=== PATIENT | female | born 1965 | race Two or more races ===

== ENCOUNTER → 2020-12-16 12:51 | Outpatient (BNVA) | payer OTHER, SELFPAY | PROVIDERS: PCP Internal Medicine; Visit Provider Internal Medicine Cardiovascular Disease | DX: I42.9 Cardiomyopathy, unspecified (principal); I12.0 Hypertensive chronic kidney disease with stage 5 chronic kidney disease or end stage renal disease; N18.5 Chronic kidney disease, stage 5; Z79.899 Other long term (current) drug therapy | CPT/HCPCS: 93005; 99212 ==

== ENCOUNTER 2021-11-30 11:26 | Outpatient (REF) | payer OTHER, SELFPAY ==
--- NOTE | ~2021-11-30 | XR_ITS ---
EXAMINATION: XR CHEST CLINICAL INFORMATION: Cough. COMPARISON: 05/01/2016 TECHNIQUE: 2 views of the chest were obtained. FINDINGS: There is scoliosis of the thoracic spine convex right. No acute parenchymal disease, pneumothorax, or pleural effusion identified. Heart upper limits of normal in size. No evidence of pulmonary edema. Prominent left pericardial fat pad. XR/XR chest 2V IMPRESSION: No acute disease.
[2021-11-30 11:55] LABS: Binax Internal Control QC Valid; Binax Now Covid-19 Ag Negative (Negative)
== END 2021-11-30 11:27 | disposition home or self-care (01) ==
LOC: HO.HMGCLDS 11:26
PROVIDERS: PCP Internal Medicine; Visit Provider Physician Assistant
DX: J06.9 Acute upper respiratory infection, unspecified (principal); R05.9 Cough, unspecified; J02.9 Acute pharyngitis, unspecified
CPT/HCPCS: 71046

== ENCOUNTER 2022-03-23 11:33 | Outpatient (REF) | payer MEDICARE, MEDICAID, SELFPAY ==
[2022-03-23 13:46] LABS: MANUAL DIFF FLAG NO
[2022-03-23 13:57] LABS: Basophils Absolute Auto 0.1 X10*3/uL (0.0-0.2); Basophils Percent Auto 0.7 % (0-2); Eosinophils Absolute Auto 0.2 X10*3/uL (0.0-0.4); Eosinophils Percent Auto 2.5 % (0-4); Hematocrit 30.6 % (37.0-47.0); Hemoglobin 9.5 g/dl (12.0-16.0); Imm Gran Abs Auto 0.07 X10*3/uL (0.00-0.03); Lymphocytes Absolute Auto 1.5 X10*3/uL (1.2-4.9); Lymphocytes Percent Auto 19.9 % (20-40); Mean Corpuscular Volume 83.8 fL (80.0-98.0); Mean Platelet Volume 10.9 fL (9.4-12.3); Monocytes Absolute Auto 0.7 X10*3/uL (0.1-1.2); Monocytes Percent Auto 9.4 % (2-11); Neutrophils Absolute Auto 4.9 x10*3/uL (2.0-8.3); Neutrophils Percent Auto 66.5 % (45-73); Platelet Count 205 X10*3/uL (160-400); Red Blood Count 3.65 X10*6/uL (4.20-5.50); Red Cell Distribution Width 15.4 % (11.0-16.0); White Blood Count 7.3 X10*3/uL (4.8-10.8)
[2022-03-23 14:06] LABS: Alanine Aminotransferase 9 U/L (0-31); Albumin Level 4.1 g/dL (3.5-5.0); Alkaline Phosphatase 83 U/L (39-117); Anion Gap 16 (12-20); Aspartate Amino Transferase 9 U/L (5-31); Bilirubin Total 0.3 mg/dL (0.0-1.0); Blood Urea Nitrogen 72 mg/dL (9-16); Calcium 8.6 mg/dL (8.4-10.2); Carbon Dioxide 14 mmol/L (22-29); Chloride 116 mmol/L (96-108); Glucose Random 105 mg/dL (60-115); Potassium 4.2 mmol/L (3.3-5.1); Sodium 142 mmol/L (135-145); Total Protein 7.8 g/dL (6.5-8.0)
[2022-03-23 14:07] LABS: Estimated Glomerular Filt Rate 8
== END 2022-03-23 11:34 | disposition home or self-care (01) ==
LOC: HO.HMGCLDS 11:33
PROVIDERS: Visit Provider Internal Medicine
DX: I12.9 Hypertensive chronic kidney disease with stage 1 through stage 4 chronic kidney disease, or unspecified chronic kidney disease (principal); N18.5 Chronic kidney disease, stage 5; I42.9 Cardiomyopathy, unspecified; R60.9 Edema, unspecified
CPT/HCPCS: 36415; 80053; 85025

== ENCOUNTER → 2022-06-26 13:58 | Outpatient (BNVA) | payer MEDICARE, MEDICAID, SELFPAY | PROVIDERS: PCP Internal Medicine; Visit Provider Surgery | DX: K46.9 Unspecified abdominal hernia without obstruction or gangrene (principal); J45.909 Unspecified asthma, uncomplicated; I42.9 Cardiomyopathy, unspecified; N18.5 Chronic kidney disease, stage 5; E66.9 Obesity, unspecified; I10 Essential (primary) hypertension; Z68.35 Body mass index [BMI] 35.0-35.9, adult | CPT/HCPCS: 99202 ==

== ENCOUNTER 2022-06-27 11:24 | Outpatient (REF) | payer MEDICARE, MEDICAID, SELFPAY ==
--- NOTE | ~2022-06-27 | MM_ITS ---
EXAMINATION: MM SCREENING DIGITAL BREAST TOMOSYNTHESIS, BILATERAL CLINICAL INFORMATION: Screening. Asymptomatic. The lifetime risk of breast cancer based on the Tyrer-Cuzick Model is 6.2%. COMPARISON: Mammography: June 27, 2019 and studies dating back to March 13, 2013 TECHNIQUE: Digital breast tomosynthesis is performed in both the craniocaudal and mediolateral oblique views along with computer-aided detection (CAD). Synthesized 2D images are generated from the tomosynthesis. FINDINGS: The breasts are almost entirely fatty (ACR BI-RADS breast composition Category a). There are no significant masses, abnormal calcifications, or other abnormalities. MM/MM tomosynthesis screening BI IMPRESSION: No significant changes from prior exam. ASSESSMENT: BI-RADS 1: Negative RECOMMENDATION: Routine annual mammography screening. This patient's information was entered into a reminder system with a target due date for their next mammogram.
== END 2022-06-27 11:25 | disposition home or self-care (01) ==
LOC: HO.MAMMO 11:24
PROVIDERS: PCP Internal Medicine; Visit Provider Nurse Practitioner Family
DX: Z12.31 Encounter for screening mammogram for malignant neoplasm of breast (principal)
CPT/HCPCS: 77063; 77067

== ENCOUNTER → 2022-09-06 09:33 | Outpatient (BNVA) | payer OTHER, SELFPAY | PROVIDERS: PCP Nurse Practitioner Family; Referring Provider Nurse Practitioner Family; Visit Provider Internal Medicine Cardiovascular Disease | DX: I12.9 Hypertensive chronic kidney disease with stage 1 through stage 4 chronic kidney disease, or unspecified chronic kidney disease (principal); N18.5 Chronic kidney disease, stage 5; I42.9 Cardiomyopathy, unspecified | CPT/HCPCS: 93005; 99212 ==

== ENCOUNTER → 2022-12-14 12:50 | Outpatient (REF) | payer OTHER, SELFPAY ==
--- NOTE | 2022-12-14 12:53 | CA_ITS ---
Transthoracic Echocardiogram Patient (Last, First, Middle): Anh Kitchen, Gender: Female Date of : 1965 Age: 57 Procedure Date: 12/14/2022 Procedure Type: Transthoracic Echocardiogram Location: OP Height: 165.1 cm Weight: 90.72 kg BSA: 1.98 m2 Heart Rate: 74 bpm BP: 142 / 64 mmHg Jackerman: CRISTINA Referring MD: Nirav Zamudio MD Technical Support Consultant: Miko Quan MD Symptoms: I42.9 - Cardiomyopathy, unspecified Study Quality: Adequate ECG Rhythm: Sinus Conclusions: - 1. [id number] LV systolic dysfunction with LVEF of 40-45% with impaired relaxation filling pattern 2. Normal cardiac valvular Dopplers 3. Normal RV systolic pressure 4. No gross pericardial effusion Findings Left Ventricle Mildly increased left ventricular cavity size. There is normal left ventricular wall thickness. The left ventricular systolic function is mild to moderately decreased. The visually estimated ejection fraction is between 40-45%. Spectral Doppler is indicative of an impaired relaxation filling pattern. Right Ventricle Normal right ventricular cavity size and systolic function. Atria The left atrium is normal in size. Interatrial shunt cannot be excluded. The right atrium is normal in size. Aortic Valve The aortic valve structure and function is likely normal. There is no aortic valve stenosis. There is no aortic valve regurgitation. Mitral Valve Normal mitral valve structure and function. There is trace mitral valve regurgitation. There is no mitral valve stenosis. Pulmonic Valve The pulmonic valve is likely normal. Tricuspid Valve Normal tricuspid valve structure. There is trace tricuspid valve regurgitation. The right ventricular systolic pressure is normal. The right ventricular systolic pressure is 11 mmHg. Normal right atrial pressure. Great Vessels All visible segments of the aorta are normal in size. The pulmonary artery was not well visualized. Venous The inferior vena cava is normal in size and collapses greater than 50% with inspiration. Pericardium/Pleural There is no evidence of pericardial effusion. Prior Study Comparison Changes noted compared to prior study dated: 04/18/2019. LV systolic function has improved marginally Measurements 2D Linear Measurements IVSd: 1.14 0.6-0.9/0.6-1.0 cm LVIDd: 6.17 3.9-5.3/4.2-5.9 cm LVIDd Index: 3.12 2.4-3.2/2.2-3.1 cm/m2 LVIDs: 4.10 2.0-3.6 cm LVPWd: 0.91 0.7-1.1 cm LA Diam: 3.90 2.7-3.8/3.0-4.0 cm LAIDs Index: 1.97 1.5-2.3 cm/m2 LV Mass: 332.51 67-162/88-224 g LV Mass Index: 167.93 43-95/49-115 g/m2 LVOT Diam: 2.40 3.0+(-)1.3 cm 2D Systolic Function EF 4C: 38.80 >55% EF 2C: 41.60 >55% EF BiP: 40.10 >55% Mitral Valve MV Pk E: 0.66 MV PK A: 0.78 MV Decel Time: 190.00 E/A: 0.80 E'Lateral: 5.68 E'Medial: 4.70 E/E' Med: 14.10 E/E' Lat: 11.70 PHT: 56.00 MVA PHT: 3.93 Decel Franklin: 3.49 Aortic Valve AoV Pk Bang: 1.37 AoV Pk Grad: 8.00 OMAR: 3.17 LVOT LVOT Pk Bang: 0.96 LVOT Mn Bang: 0.61 LVOT VTI: 0.18 LVOT Pk Grad: 4.00 LVOT Mn Grad: 2.00 LVOT Diam: 2.40 LVOT Area: 4.52 Diastolic Function MV Pk E: 0.66 MV Pk A: 0.78 E/A: 0.80 E'Medial: 4.70 E/E' Med: 14.10 E' Laterial: 5.68 E/E' Lat: 11.70 Right Ventricle TAPSE (mm): 19.10 TVS' Bang: 9.80 Tricuspid Valve TR Pk Bang: 1.40 TR Pk Grad: 8.00 RVSP: 11.00 Great Vessels Aorta Sinus of Valsalva: 3.20 2.0-3.5 cm Ao Asc: 3.50 2.1-3.4 cm Pulmonary Valve PV Pk Bang: 1.00 Peak PV Grad: 4.00 Updated in Other Vendor System with Status of Final Miko Quan MD electronically signed on 12/15/2022 11:29:23 AM with status of Final
== END ==
LOC: HO.CARD 12:50
PROVIDERS: PCP Nurse Practitioner Family; Visit Provider Internal Medicine Cardiovascular Disease
DX: I42.9 Cardiomyopathy, unspecified (principal)
CPT/HCPCS: 93306

== ENCOUNTER 2023-01-18 17:48 | Outpatient (REF) | payer OTHER, SELFPAY ==
[2023-01-18 18:36] LABS: Influenza A PCR NEGATIVE (Negative); Influenza B PCR NEGATIVE (Negative); Resp Syncy Virus RNA Qual PCR NEGATIVE (Negative); SARS COV2 PCR INHOUSE NEGATIVE (Negative)
== END 2023-01-18 17:49 | disposition home or self-care (01) ==
LOC: HO.LNP 17:48
PROVIDERS: Visit Provider Physician Assistant Medical
DX: Z20.822 Contact with and (suspected) exposure to COVID-19 (principal); R05.9 Cough, unspecified
CPT/HCPCS: 0241U

== ENCOUNTER 2023-01-21 11:51 | Emergency (ER) | payer OTHER, SELFPAY ==
--- NOTE | ~2023-01-21 | XR_ITS ---
EXAMINATION: XR CHEST CLINICAL INFORMATION: Cough. COMPARISON: None available. TECHNIQUE: 2 views of the chest were obtained. FINDINGS: No significant abnormality is noted involving the heart, lungs, mediastinum, bony thorax or soft tissues. XR/XR chest 2V IMPRESSION: No acute cardiopulmonary process.
[2023-01-21 11:59] VITALS: BP 130/58; PULSE 101; RESP 18; TEMP 36.8; O2SAT 100; BMI 30.2
--- NOTE | 2023-01-21 12:04 | ED_ITS ---
HPI - General Adult General Chief complaint: Upper Respiratory Symptoms Stated complaint: Sore throat/dizziness Time Seen by Provider: 01/21/23 12:13 Source: patient Limitations: no limitations History of Present Illness HPI narrative: 57-year-old female presents to the ER complaining of sore throat cough and intermittent dizziness since mother's Day. No known sick contacts. Cough is mostly nonproductive. Patient does have a history of asthma. Also history of hypertension. Patient denies chest pain or shortness of breath at this time symptoms are [id number]. Patient denies fever at this time. No other complaints at this time Related Data Previous Rx's Medication Instructions Recorded carvedilol 3.125 mg tablet 3.125 mg PO BID #60 tabs 09/06/22 amlodipine 10 mg tablet 10 mg PO DAILY #90 tabs 10/13/22 benzonatate 100 mg capsule 100 mg PO BID PRN cough #14 caps 01/21/23 Allergies Allergy/AdvReac Type Severity Reaction Status Date / Time Penicillins Allergy Intermediate RASH Verified 01/21/23 11:59 Review of Systems Review of Systems: General: No fever, no chills Ophthalmology: No vision changes, no discharge ENT: Positive sore throat positive congestion Cardiovascular: No chest pain, no peripheral edema, no shortness of breath Respiratory: Positive cough nonproductive Muscle skeletal: No malaise, no back pain, no neck pain, no extremity pain GI: no nausea vomiting, no diarrhea Skin: No rash Hematology: No bleeding, no bruising PMFSH Past Medical History Attestation statement: The following information was validated with the patient. Medical History CKD (chronic kidney disease) stage 5, GFR less than 15 ml/min Essential hypertension Normocytic anemia Surgical History History of abdominal surgery History of extraction of renal calculus History of surgery History of tubal ligation Status post dilation and curettage Family History Family History Father Throat cancer Mother Hypertension Daughter In good health Daughter In good health Sister In good health Family/Other Breast cancer Social History Social History Housing: Apartment Alcohol intake: never Patient Tobacco Use Status: Former Tobacco user Quit Date: 2011 Tobacco use type: Cigarette Years Smoked: 30 +/- e-Cigarette/Vaping Use: Never Used Second Hand Smoke Exposure: No Advance Directives: No Advance Directives Information Provided: Yes service: No Current occupational status: unemployed Cognitive needs: No Hearing needs: No Vision needs: No Physical Exam ED Vital Signs: Vital Signs - 24 hr 01/21/23 11:59 Temperature 98.2 F Pulse Rate 101 H Respiratory Rate 18 Blood Pressure 130/58 L Pulse Oximetry 100 Oxygen Delivery Method Room Air BMI result Body Mass Index 30.2 General appearance: Awake, alert, cooperative, in no acute distress Skin: Warm, dry, no rash Eyes: PERRL, EOMI, no icterus ENT: Throat slightly erythematous no exudate no evidence of peritonsillar abscess uvula is midline. Neck: Soft supple full range of motion Pulmonary: Breath sounds are slightly coarse good aeration no accessory muscle use Cardiovascular: Regular rate and rhythm, no murmurs and rubs Extremities: No deformity, nontender, no peripheral edema noted Neuro: Alert oriented x3, no focal deficit, screen cutter and trimmer is equal bilaterally Psych: Normal affect Course Course Course Narrative: RME: 57 yold female presents to the ED for cough, sore throat, and known fluid in left ear. patient had negative covid and RSV and strep at urgent care. Viltal signs stable. Chest Xray strep swab ordered Medical Decision Making Medical Decision Making MDM Narrative: Acute pharyngitis Viral URI Sinusitis Otitis media Viral syndrome Pneumonia Seasonal allergies 57-year-old female with longstanding history of asthma and hypertension presents with sore throat congestion and at times cough since mother's Day. No known sick contacts O2 sat is 100% on room air other vital signs are otherwise stable. Chest x-ray pending throat swab pending respiratory swab pending Patient tested positive for influenza B will treat symptomatically at this time. This patient has had symptoms almost since mother's Day I do not believe Tamiflu would be effective at this time will place patient on Tessalon Perles for cough. Lab Data Labs: Lab Results 01/21/23 01/21/23 01/21/23 Range/Units 12:21 12:21 13:00 Influenza Type A (AL) Negative (Negative) Influenza Type A (PCR) Cancelled Influenza Type B (AL) Positive A (Negative) Influenza Type B (PCR) Cancelled Influenza A & B Note See Note RSV RNA Qual (PCR) Cancelled SARS-CoV-2 RNA (RT-PCR) Cancelled S. pyogenes GrpA AL Negative (Negative) 01/21/23 Range/Units 13:17 Influenza Type A (AL) (Negative) Influenza Type A (PCR) Cancelled Influenza Type B (AL) (Negative) Influenza Type B (PCR) Cancelled Influenza A & B Note RSV RNA Qual (PCR) Cancelled SARS-CoV-2 RNA (RT-PCR) Cancelled S. pyogenes GrpA AL (Negative) Radiology Impression Discussion of test interpretation with radiology: I have reviewed the radiologist's reading. Radiologist Impression: [id number] [place], [place] [id number] ReportSigned Patient: Anh KitchenMR#: [id number]: 1965Acct:[id number]/Sex: 57 / FADM Date: 01/21/23Loc: EDAttending Dr: Ordering Physician: Andrea Carranza Date of Service: 01/21/23 Procedure(s): XR chest 2V Accession Number(s): [id number] cc: Andrea Carranza ~ EXAMINATION: XR CHEST CLINICAL INFORMATION: Cough. COMPARISON: None available. TECHNIQUE: 2 views of the chest were obtained. FINDINGS: No significant abnormality is noted involving the heart, lungs, mediastinum, bony thorax or soft tissues. XR/XR chest 2V IMPRESSION: No acute cardiopulmonary process. Dictated By:Gautam Chua MDSigned By:<Electronically signed by Gautam Chua MD in OV>01/21/23 1233 DD/ 1230TD/TT: Rat Culturist: OHWIE Discharge Plan Discharge Clinical Impression: Influenza B Patient Disposition: Home, Self-Care Instructions: Influenza (ED) Additional Instructions: You have tested positive for the flu Increase fluids rest Medications as directed The flu is a virus so no antibiotics needed at this time medications have been given for symptomatic relief Prescriptions: New benzonatate 100 mg capsule 100 mg PO BID PRN (Reason: cough) Qty: 14 0RF No Action amlodipine 10 mg tablet 10 mg PO DAILY Qty: 90 0RF carvedilol 3.125 mg tablet 3.125 mg PO BID Qty: 60 3RF Rx Instructions: must administer with a meal/food Interventions: ED Discharge Assessment Last Done: 01/21/23 13:41 Discharge Date/Time: 01/21/23 13:42
[2023-01-21 12:43] LABS: Strep A Nucleic Acid Negative (Negative)
[2023-01-21 13:21] LABS: IDNOW Serial# 16C4AD1C; Influenza A Negative (Negative); Influenza B2 Positive (Negative)
== END 2023-01-21 13:42 | disposition home or self-care (01) ==
PROVIDERS: Physician Assistant; Emergency Provider Emergency Medicine Emergency Medical Services; PCP Nurse Practitioner Family
DX: J10.1 Influenza due to other identified influenza virus with other respiratory manifestations (principal); J02.8 Acute pharyngitis due to other specified organisms; R42 Dizziness and giddiness; R05.9 Cough, unspecified; Z79.899 Other long term (current) drug therapy
CPT/HCPCS: 0241U; 71046; 87502; 87651; 99282; 99283

== ENCOUNTER 2023-03-26 15:34 | Emergency (ER) | payer OTHER, SELFPAY ==
[2023-03-26 15:39] VITALS: BP 157/75; PULSE 92; RESP 18; TEMP 36.1; O2SAT 100; BMI 31.1
--- NOTE | 2023-03-26 15:41 | ED.GENADULT ---
HPI - General Adult General Chief complaint: General Medical Stated complaint: throat pain/trouble swallowing Time Seen by Provider: 03/26/23 15:41 Source: patient, RN notes reviewed and old records reviewed Mode of arrival: ambulatory Limitations: no limitations History of Present Illness HPI narrative: 57-year-old female presents for evaluation of a sore throat. Patient reports that her symptoms started 8 days ago Denies any sick contacts or associated symptoms. No fevers or chills Related Data Previous Rx's Medication Instructions Recorded carvedilol 3.125 mg tablet 3.125 mg PO BID #60 tabs 09/06/22 benzonatate 100 mg capsule 100 mg PO BID PRN cough #14 caps 01/21/23 amlodipine 10 mg tablet 10 mg PO DAILY #90 tabs 03/23/23 clindamycin HCl 300 mg capsule 300 mg PO TID #21 caps 03/26/23 Allergies Allergy/AdvReac Type Severity Reaction Status Date / Time Penicillins Allergy Intermediate RASH Verified 03/26/23 15:39 Review of Systems Constitutional: Constitutional: Denies chills and Denies fever(s) ENT: Reports sore throat, Denies throat swelling and Denies tongue swelling Allergic/Immunologic: Allergic/Immunologic: Denies throat swelling and Denies tongue swelling PMFSH Past Medical History Medical History CKD (chronic kidney disease) stage 5, GFR less than 15 ml/min Essential hypertension Normocytic anemia Surgical History History of abdominal surgery History of extraction of renal calculus History of surgery History of tubal ligation Status post dilation and curettage Family History Family History Father Throat cancer Mother Hypertension Daughter In good health Daughter In good health Sister In good health Family/Other Breast cancer Social History Social History Housing: Apartment Alcohol intake: never Patient Tobacco Use Status: Former Tobacco user Quit Date: 2011 Tobacco use type: Cigarette Years Smoked: 30 +/- e-Cigarette/Vaping Use: Never Used Second Hand Smoke Exposure: No service: No Current occupational status: unemployed Cognitive needs: No Hearing needs: No Vision needs: No Physical Exam ED Const General: healthy appearing, comfortable, no acute distress, alert and awake Nutritional Appearance: well nourished Orientation/consciousness: patient oriented x3 HENMT Other: Mildly erythematous retropharynx, no significant tonsillar hypertrophy, no evidence of peritonsillar abscess, no exudates Head: Yes normocephalic and Yes atraumatic Eyes Eyelids: Yes eyelids normal Conjunctivae: conjunctivae normal Sclerae: sclerae normal Corneas: corneas normal Pupils: Equal, round and reactive pupils present EOM: EOMs intact bilaterally Neck Neck: Yes full ROM and No anterior neck swelling Resp Effort & Inspection: normal respiratory effort, able to speak in complete sentences and not labored Skin General skin exam: no rashes or lesions noted and elasticity normal Neuro General: patient oriented x3 Cranial nerves: Yes Equal, round and reactive pupils present and Yes Bilaterally intact EOM present Cognition (Neuro): normal cognition Extrem Other: Moving all extremities well without any obvious deformities Medical Decision Making Medical Decision Making MDM Narrative: Patient appears to be mild pharyngitis. Given the amount of positive strep test we have been seeing as well as multiple peritonsillar abscesses, will treat for presumed strep pharyngitis.. Patient encouraged to follow-up with PCP Differential Diagnosis Pharyngitis Viral syndrome Strep throat Peritonsillar abscess less likely Discharge Plan Discharge Clinical Impression: Pharyngitis Patient Disposition: Home, Self-Care Instructions: Pharyngitis (ED) Additional Instructions: Use Tylenol as needed for pain. You may also use salt water gargles Take the antibiotic three times daily for the next 7 days Return for new or worsening symptoms Follow-up with your primary doctor Prescriptions: New clindamycin HCl 300 mg capsule 300 mg PO TID Qty: 21 0RF No Action amlodipine 10 mg tablet 10 mg PO DAILY Qty: 90 0RF benzonatate 100 mg capsule 100 mg PO BID PRN (Reason: cough) Qty: 14 0RF carvedilol 3.125 mg tablet 3.125 mg PO BID Qty: 60 3RF Rx Instructions: must administer with a meal/food
== END 2023-03-26 15:54 | disposition home or self-care (01) ==
PROVIDERS: Emergency Provider Emergency Medicine Emergency Medical Services; PCP Internal Medicine
DX: J02.9 Acute pharyngitis, unspecified (principal); I12.0 Hypertensive chronic kidney disease with stage 5 chronic kidney disease or end stage renal disease; Z87.891 Personal history of nicotine dependence
CPT/HCPCS: 99282; 99283

== ENCOUNTER 2023-04-02 14:45 | Outpatient (AMB) | payer OTHER, SELFPAY ==
[2023-04-02 14:49] VITALS: BP 150/80; PULSE 84; BMI 30.2
--- NOTE | 2023-04-02 14:49 | MHC.OFFVIS ---
Intake Vital Signs 04/02/23 14:49 Height 5 ft 6 in Weight 187 lb 6.287 oz BMI 30.2 BP 150/80 H Blood Pressure Location Lt brachial Position Sitting Pulse 84 Pulse Source Pulse Oximeter Intake Visit Reasons: FUP REQUESTED BY CINDY/CARDIOMYOPATHY Intake Note: FUP requested DR Bolanos /Cardiomyopathy patient has been having stomach problems cant take meds and gets tired when walking Loop Drier Operator Required: Yes Loop Drier Operator Name: stephane said [id number] Allergies Penicillins Allergy (Intermediate, Verified 04/02/23 14:55) RASH Medication List - Last Reconciled 04/02/23 by Georgina Reina, MARIELLE-C amlodipine 10 mg PO DAILY carvedilol 3.125 mg PO BID HPI FUP REQUESTED BY CINDY/CARDIOMYOPATHY HPI Details Anh is a 57-year-old female with past medical history of hypertension, chronic kidney disease, cardiomyopathy who presents for follow-up after recent echocardiogram. Today she reports that she has not been doing well since her visit in September. She said she had a bacterium in her stomach and then took an antibiotic. Now for the last few months she has not been able to swallow things normally. She has lost around 28 lb in the last 2-3 months. Most things get stuck including her pills. She is living on water and small pieces of fruit. She is not able to swallow bread or meats. She has not been having any chest discomfort at rest or with activity. She denies any shortness of breath, dizziness, presyncope, syncope, falls. No PND, orthopnea or edema. She says she tries to take her meds daily but unsure they are getting down. [facility] Medical History CKD (chronic kidney disease) stage 5, GFR less than 15 ml/min Essential hypertension Normocytic anemia Surgical History History of abdominal surgery History of extraction of renal calculus History of surgery History of tubal ligation Status post dilation and curettage Family History Father Throat cancer Mother Hypertension Daughter In good health Daughter In good health Sister In good health Family/Other Breast cancer Social History Housing: Apartment Alcohol intake: never Patient Tobacco Use Status: Former Tobacco user Quit Date: 2011 Tobacco use type: Cigarette Years Smoked: 30 +/- e-Cigarette/Vaping Use: Never Used Second Hand Smoke Exposure: No service: No Current occupational status: unemployed Cognitive needs: No Hearing needs: No Vision needs: No Review of Systems Const Details: Difficulty swallowing, weight loss All systems reviewed & are unremarkable except as noted in HPI and below ENT Reports dizziness Card Denies chest pain, Denies chest pain at rest, Denies chest pain with activity, Denies rapid heart rate, Denies pedal edema, Denies edema, Denies leg edema, Denies lightheadedness, Denies palpitations, Denies dyspnea, Denies dyspnea on exertion and Denies orthopnea Resp Denies cough, Denies dyspnea and Denies dyspnea on exertion GI Denies hematochezia and Denies change in stool character Musc Denies abnormal gait, Reports limited range of motion, Reports muscle cramps, Denies muscle weakness, Denies numbness, Denies radiating pain into limb, Denies stiffness and Denies tingling Neuro Denies abnormal gait, Reports dizziness, Denies numbness and Denies tingling Endo Denies palpitations Physical Exam Vital Signs: Last Vital Signs Pulse 84 04/02/23 14:49 BP 150/80 H 04/02/23 14:49 BMI result Body Mass Index 30.2 Const General: cooperative, healthy appearing, comfortable and no acute distress Orientation/consciousness: patient oriented x3 Neck Neck: Yes normal visual inspection Resp Effort & Inspection: normal respiratory effort Auscultation: clear to auscultation bilaterally, no crackles, no rales, no rhonchi and no wheezes Cardio Jugular venous distension: no JVD Rate: regular rate Rhythm: regular rhythm Heart sounds: S1 normal heart sound present, S2 normal heart sound present, no murmurs and no rubs Neuro General: patient oriented x3 Extrem General: Yes normal to inspection Psych Appearance: grossly normal Mental Status: mental status grossly normal Speech and movement: Normal speech and movement present Assessment & Plan Assessment & Plan (1) Cardiomyopathy: Code(s): I42.9 - Cardiomyopathy, unspecified Plan: Known history of cardiomyopathy with prior echos showing EF as low as 30-35%, 04/2019. She has stage 5 chronic kidney disease and cardiac catheterization has not been performed on her. She has no known history of coronary artery disease and has no anginal sounding symptoms. Echocardiogram done 12/14/2022 shows EF 40-45%, normal RV, normal valves. She has been on carvedilol for neurohormonal modulation. Blood pressure is mildly elevated today however patient is describing issues with swallowing and not sure if she is getting her meds as she should. No clinical signs of heart failure on examination. Signs and symptoms of heart failure reviewed with her. Continue current meds without change. Plan to further titrate neurohormonal modulation once her swallowing issues have improved. (2) Essential hypertension: Code(s): I10 - Essential (primary) hypertension Plan: As above (3) CKD (chronic kidney disease) stage 5, GFR less than 15 ml/min: Code(s): N18.5 - Chronic kidney disease, stage 5 Plan: Follows with Nephrology (4) Dysphagia: Code(s): R13.10 - Dysphagia, unspecified Plan: Patient reports difficulty swallowing in recent months. She feels this symptom has gotten worse and she is now only able to swallow liquids and small pieces of fruit. She is not able to swallow bread or meats. Everything gets stuck including her pills. She was seen in the emergency room on 03/26/2023 for reported symptoms of sore throat. She was treated for mild pharyngitis and possible strep. However she tells me that she has had the difficulty swallowing issues over the last few months and has recently lost approximately 28 lb. I do not see that she has seen GI in the recent past. Will refer to GI for evaluation and treatment (5) Weight loss: Code(s): R63.4 - Abnormal weight loss Orders: Referrals Gastroenterology Referral R13.10 - Dysphagia, unspecified, R63.4 - Abnormal weight loss Coding Level of Care Code Est Pt Level 4 (87585) Diagnoses Cardiomyopathy I42.9 Essential hypertension I10 CKD (chronic kidney disease) stage 5, GFR less than 15 ml/min N18.5 Dysphagia R13.10 Weight loss R63.4 Time Spent (min) 30 Comment Chart review, documentation, interview, assessment
== END 2023-04-02 15:23 | disposition home or self-care (01) ==
PROVIDERS: PCP Internal Medicine; Visit Provider Nurse Practitioner Family
DX: I42.9 Cardiomyopathy, unspecified (principal); I12.0 Hypertensive chronic kidney disease with stage 5 chronic kidney disease or end stage renal disease; N18.5 Chronic kidney disease, stage 5; R13.10 Dysphagia, unspecified; R63.4 Abnormal weight loss
CPT/HCPCS: 99214

== ENCOUNTER → 2023-04-02 14:45 | Outpatient (BNVA) | payer OTHER, SELFPAY | PROVIDERS: PCP Internal Medicine; Visit Provider Nurse Practitioner Family | DX: I42.9 Cardiomyopathy, unspecified (principal); I13.11 Hypertensive heart and chronic kidney disease without heart failure, with stage 5 chronic kidney disease, or end stage renal disease; N18.5 Chronic kidney disease, stage 5; R13.10 Dysphagia, unspecified; R63.4 Abnormal weight loss; Z87.891 Personal history of nicotine dependence | CPT/HCPCS: 99212 ==

== ENCOUNTER 2023-06-19 09:46 | Outpatient (AMB) | payer OTHER, SELFPAY ==
[2023-06-19 09:59] VITALS: BP 156/80; PULSE 90; O2SAT 100; BMI 30.8
--- NOTE | 2023-06-19 09:59 | A.OFFPC_ITS ---
Vital Signs 06/19/23 09:59 Height 5 ft 6 in Weight 191 lb BMI 30.8 BP 156/80 H Blood Pressure Location Lt brachial Position Sitting Pulse 90 Pulse Source Pulse Oximeter Pulse Oximetry (%) 100 Oxygen Delivery Method Room Air Intake Visit Reasons: Annual Exam Intake Note: Patient here for a physical exam Retirement Plan Specialist Required: No Accompanied by: Self / Same As Patient Allergies Penicillins Allergy (Intermediate, Verified 06/19/23 10:15) RASH Medication List - Last Reconciled 06/19/23 by Britt De MD amlodipine 10 mg PO DAILY carvedilol 3.125 mg PO BID Tobacco use date assessed: 09/20/22 Dental Screening Dental Screen Date: 06/19/23 Did you have a dental visit in the last 12 months?: Yes Did you have a dental problem in the last 6 months where you did not have access to dental care?: No Was dental information given to patient?: Patient has dentist HPI HPI Comments History of Present Illness Details This is a 58-year-old female with chronic kidney disease stage 5 not on hemodialysis and chronic systolic congestive heart failure that comes for her physical exam. She is a very noncompliant patient. She does not follow with Nephrology and will be refer again. Follows with Cardiology and last echocardiogram was December 2022 showing ejection fraction 40-45%. She is also not compliant with medications and blood pressure is elevated today because she does not take her medications. Blood pressure will be recheck in 3 weeks by nurse navigator. Last Pap smear was 2018 and will be referred to OBGYN for that matter. Last mammogram was June 2022 and I will order another mammogram. Refuse colonoscopy and I will order Cologuard which she does not seen completely convinced of doing it. [facility] Medical History CKD (chronic kidney disease) stage 5, GFR less than 15 ml/min Essential hypertension Normocytic anemia Surgical History History of surgery Status post dilation and curettage History of abdominal surgery History of extraction of renal calculus History of tubal ligation Family History Father Throat cancer Mother Hypertension Daughter In good health Daughter In good health Sister In good health Family/Other Breast cancer Social History Housing: Apartment Alcohol intake: never Patient Tobacco Use Status: Former Tobacco user Quit Date: 2011 Tobacco use type: Cigarette Years Smoked: 30 +/- e-Cigarette/Vaping Use: Never Used Second Hand Smoke Exposure: No service: No Current occupational status: unemployed Cognitive needs: No Hearing needs: No Vision needs: No Questionnaire Thrive Questionnaire Date Thrive assessed: 09/20/22 PAUL-7 AMB Questionnaire PAUL-7 Date PAUL - 7 assessed: 09/20/22 Source: Developed by Drs. Tarun Fernandez, Ciarra Alfred, Mik Sands and colleagues, with an educational kevan from [employer]. Review of Systems Const All systems reviewed & are unremarkable except as noted in HPI and below Eyes Reports no additional complaints, Denies change in vision and Denies other visual disturbances Card Denies chest pain at rest, Denies chest pain with activity, Denies edema, Denies irregular heart rhythm, Denies claudication, Denies dyspnea, Denies dyspnea on exertion, Denies orthopnea, Denies paroxysmal nocturnal dyspnea and Denies slow heart rate Resp Denies cough, Denies dyspnea and Denies dyspnea on exertion GI Denies abdominal pain, Denies change in bowel habits, Denies excessive flatus, Denies nausea and Denies vomiting Denies urinary incontinence, Denies urinary hesitancy and Denies urinary urgency Musc Denies abnormal gait, Denies atrophy, Denies deformity and Denies limited range of motion Skin/Breast Denies bleeding lesions, Denies changing lesions and Denies rash Neuro Denies abnormal gait and Denies lack of coordination Physical exam (Primary Care) Vital Signs: Last Vital Signs Pulse 90 06/19/23 09:59 BP 156/80 H 06/19/23 09:59 Pulse Ox 100 06/19/23 09:59 Oxygen Delivery Method Room Air 06/19/23 09:59 BMI result Body Mass Index 30.8 Tobacco/Smoking Status: Tobacco use Status Tobacco use date assessed 09/20/22 06/19/23 10:02 Patient Tobacco Use Status Former Tobacco user 06/19/23 10:02 Tobacco use type Cigarette 06/19/23 10:02 e-Cigarette/Vaping Use Never Used 06/19/23 10:02 Thrive Assessment: Date of Thrive Assessment Date Thrive assessed 09/20/22 06/19/23 10:02 Const Other: Looks pale General: ill appearing chronically Orientation/consciousness: patient oriented x3 HENMT Head: Yes normal to inspection, Yes normocephalic and Yes atraumatic Ears: external ears normal Eyes General: appearance normal, both eyes and all related structures Eyelids: Yes eyelids normal Conjunctivae: conjunctivae normal Neck Neck: Yes normal visual inspection and Yes supple Resp Effort & Inspection: normal respiratory effort Auscultation: clear to auscultation bilaterally Cardio Jugular venous distension: no JVD Rate: regular rate Rhythm: regular rhythm Heart sounds: S1 normal heart sound present and S2 normal heart sound present GI Inspection: Yes normal to inspection Palpation (GI): Soft to palpation and nontender Auscultation: normal bowel sounds Skin General skin exam: no rashes or lesions noted Neuro General: patient oriented x3 and no focal motor deficits Extrem General: Yes full ROM Psych Appearance: grossly normal Office Procedures Flu Questionnaire Does the patient have a severe egg allergy?: No Does the patient have severe life threatening allergies?: No Does the patient have a fever or illness today?: No Has the patient ever had Guillain-Brooten Syndrome?: No Has the patient ever had any past reaction to a flu shot?: No Immunizations flu vacc [id number] 6mos up(PF) 60 mcg(15 mcgx4)/0.5 mL IM syringe Performing Provider: Britt De MD Performing Location: [facility] Administered by: BALDO Ahn on 06/19/23 10:31 Dose Route Admin Location Dispensed Lot Number Expiration Date NDC Validation Manager 0.5 mL IM Left Deltoid 0.5 mL [id number] 03/02/24 [id number] [employer] Smartphone Physical VIS Given Date VIS Provided VIS Publication Date 06/19/23 Single Vaccine 21 Eligibility Eligibility Date Funding Source Not [facility] Eligible 06/19/23 Private Assessment and Plan Assessment & Plan (1) Physical exam: Code(s): Z00.00 - Encounter for general adult medical examination without abnormal findings Plan: Repeat in a year (2) Chronic systolic (congestive) heart failure: Code(s): I50.22 - Chronic systolic (congestive) heart failure Plan: Be compliant with carvedilol. Follow-up with Cardiology. The goal is to not gain 5 lb in a week. (3) CKD (chronic kidney disease) stage 5, GFR less than 15 ml/min: Code(s): N18.5 - Chronic kidney disease, stage 5 Plan: Urgent referral to Nephrology. Be compliant with amlodipine. Blood pressure goal is equal or less than 130/80. Recheck blood pressure with nurse navigator in 3 weeks. Orders: Orders Influenza [id number] Immunization Today Z23 - Encounter for immunization Vitamin D 25-OH Total Today E55.9 - Vitamin D deficiency, unspecified Lipid Panel Today E78.5 - Hyperlipidemia, unspecified Comprehensive [place]. Panel Fast Today Z00.00 - Encounter for general adult medical examination without abnormal findings XR DEXA axial skeleton Today N95.9 - Unspecified menopausal and perimenopausal disorder NT-proBNP Today I50.22 - Chronic systolic (congestive) heart failure Complete Blood Count Auto Diff Today D64.9 - Anemia, unspecified IRON PROFILE Today D64.9 - Anemia, unspecified Vitamin B12 and Folate Today E53.8 - Deficiency of other specified B group vitamins MM screening mammo BI Today Z12.31 - Encounter for screening mammogram for malignant neoplasm of breast Referrals Cologuard Test Z12.11 - Encounter for screening for malignant neoplasm of colon, Z12.12 - Encounter for screening for malignant neoplasm of rectum FITNESS DIRECTOR Referral Z12.4 - Encounter for screening for malignant neoplasm of cervix Nephrology Referral N18.5 - Chronic kidney disease, stage 5 Medications: New flu vacc [id number] 6mos up(PF) 0.5 mL IM ONCE 0.5 mL 0RF Z23 - Encounter for immunization Coding Level of Care Code Est Pt Prev Care 40-64y(46986) Diagnoses Physical exam Z00.00 Chronic systolic (congestive) heart failure I50.22 CKD (chronic kidney disease) stage 5, GFR less than 15 ml/min N18.5 Time Spent (min) 33
== END 2023-06-19 10:30 | disposition home or self-care (01) ==
PROVIDERS: Visit Provider Internal Medicine
DX: Z00.00 Encounter for general adult medical examination without abnormal findings (principal); I50.22 Chronic systolic (congestive) heart failure; N18.5 Chronic kidney disease, stage 5; Z23 Encounter for immunization
CPT/HCPCS: 90471; 90686; 99396

== ENCOUNTER 2023-07-05 13:57 | Outpatient (AMB) | payer OTHER, SELFPAY ==
[2023-07-05 14:03] VITALS: BP 100/72; PULSE 83; BMI 31.2
--- NOTE | 2023-07-05 14:03 | A.OFFVIS_ITS ---
Intake Vital Signs 07/05/23 14:03 Height 5 ft 6 in Weight 193 lb 1.999 oz BMI 31.2 BP 100/72 Blood Pressure Location Lt brachial Position Sitting Pulse 83 Intake Visit Reasons: 3 MON FUP PER DC Supervisor [employer] Required: Yes Supervisor [employer] Language: Property Man Name: stephane antonio [phone] Allergies Penicillins Allergy (Intermediate, Verified 07/05/23 14:05) RASH Medication List - Last Reconciled 07/05/23 by Georgina Reina NP-C amlodipine 10 mg PO DAILY carvedilol 3.125 mg PO BID HPI 3 MON FUP PER DC HPI Details Anh is a 58-year-old female past medical history of hypertension, chronic kidney disease, mild obesity, cardiomyopathy, who was reporting issues with dysphagia last visit and now presents for follow-up. Today she reports that her swallowing difficulties have since resolved. She says she had gone to the emergency room and they gave her a medication which took care of it. She has been taking her medications as directed and is now able to swallow them. She denies any chest discomfort at rest or with activity. She has no shortness of breath, palpitations, presyncope, syncope, PND, orthopnea or edema. She is able to climb stairs in her home with use of a cane. [facility] Medical History CKD (chronic kidney disease) stage 5, GFR less than 15 ml/min Essential hypertension Normocytic anemia Surgical History History of surgery Status post dilation and curettage History of abdominal surgery History of extraction of renal calculus History of tubal ligation Family History Father Throat cancer Mother Hypertension Daughter In good health Daughter In good health Sister In good health Family/Other Breast cancer Social History Housing: Apartment Alcohol intake: never Patient Tobacco Use Status: Former Tobacco user Quit Date: 2011 Tobacco use type: Cigarette Years Smoked: 30 +/- e-Cigarette/Vaping Use: Never Used Second Hand Smoke Exposure: No service: No Current occupational status: unemployed Cognitive needs: No Hearing needs: No Vision needs: No Review of Systems Const All systems reviewed & are unremarkable except as noted in HPI and below ENT Denies dizziness Card Denies chest pain, Denies chest pain at rest, Denies chest pain with activity, Denies rapid heart rate, Denies pedal edema, Denies edema, Denies leg edema, Denies lightheadedness, Denies palpitations, Denies dyspnea, Denies dyspnea on exertion and Denies orthopnea Resp Denies cough, Denies dyspnea and Denies dyspnea on exertion GI Denies hematochezia and Denies change in stool character Musc Denies abnormal gait, Denies limited range of motion, Denies muscle cramps, Denies muscle weakness, Denies numbness, Denies radiating pain into limb, Denies stiffness and Denies tingling Neuro Denies abnormal gait, Denies dizziness, Denies numbness and Denies tingling Endo Denies palpitations Physical Exam Vital Signs: Last Vital Signs Pulse 83 07/05/23 14:03 BP 100/72 07/05/23 14:03 BMI result Body Mass Index 31.2 Const General: cooperative, healthy appearing, comfortable and no acute distress Orientation/consciousness: patient oriented x3 Neck Neck: Yes normal visual inspection Resp Effort & Inspection: normal respiratory effort Auscultation: clear to auscultation bilaterally, no crackles, no rales, no rhonchi and no wheezes Cardio Jugular venous distension: no JVD Rate: regular rate Rhythm: regular rhythm Heart sounds: S1 normal heart sound present, S2 normal heart sound present, no murmurs and no rubs Neuro General: patient oriented x3 Extrem General: Yes normal to inspection, No no pedal edema and No calf tenderness Psych Appearance: grossly normal Mental Status: mental status grossly normal Speech and movement: Normal speech and movement present Office Procedures EKG Details: Today, read by me, normal sinus rhythm, no acute ST or T-wave abnormalities, rate 83 [id number], Complete Assessment & Plan Assessment & Plan (1) Cardiomyopathy: Code(s): I42.9 - Cardiomyopathy, unspecified Plan: Known history of cardiomyopathy with prior echos showing EF as low as 30-35%, 04/2019. She has stage 5 chronic kidney disease and cardiac catheterization has not been performed on her. She has no known history of coronary artery disease and has no anginal sounding symptoms. Echocardiogram done 12/14/2022 shows EF 40-45%, normal RV, normal valves. She has been on carvedilol for neurohormonal modulation. Not on Corbin or Arb due to chronic kidney disease. No clinical signs of heart failure on examination. Signs and symptoms of heart failure reviewed with her. Will order a pharmacological nuclear stress test to evaluate for any ischemia. She says she cannot walk on the treadmill because she is afraid of falling. Discussed pharm test with her and she is agreeable for to proceed. Continue current meds without change. Cardiology follow-up in 3-4 months, sooner if needed (2) Essential hypertension: Code(s): I10 - Essential (primary) hypertension Plan: On low side today. Was elevated last visit as she had not been swallowing or taking her medications. Continues on carvedilol and amlodipine. No med changes made (3) CKD (chronic kidney disease) stage 5, GFR less than 15 ml/min: Code(s): N18.5 - Chronic kidney disease, stage 5 Plan: Last creatinine elevated at 5.59. Recent visit with PCP which states she is not following with Nephrology. She was referred to Nephrology on 06/19/[address] Bolanos (4) Dysphagia: Code(s): R13.10 - Dysphagia, unspecified Plan: Resolved (5) Chronic systolic (congestive) heart failure: Code(s): I50.22 - Chronic systolic (congestive) heart failure Plan: Stable at this time. No signs of fluid overload on examination. Orders: Orders NM cardiolite stress test Today I42.9 - Cardiomyopathy, unspecified, I50.22 - Chronic systolic (congestive) heart failure CA lexiscan stress w magan Today I42.9 - Cardiomyopathy, unspecified, I50.22 - Chronic systolic (congestive) heart failure Coding Level of Care Code Est Pt Level 4 (57269) Diagnoses Cardiomyopathy I42.9 Essential hypertension I10 CKD (chronic kidney disease) stage 5, GFR less than 15 ml/min N18.5 Dysphagia R13.10 Chronic systolic (congestive) heart failure I50.22 CPT Codes EKG - CPT: 21580-[id number], Complete ([id number]) Time Spent (min) 28
== END 2023-07-05 14:41 | disposition home or self-care (01) ==
PROVIDERS: PCP Internal Medicine; Visit Provider Nurse Practitioner Family
DX: I42.9 Cardiomyopathy, unspecified (principal); I12.0 Hypertensive chronic kidney disease with stage 5 chronic kidney disease or end stage renal disease; N18.5 Chronic kidney disease, stage 5; R13.10 Dysphagia, unspecified; I50.22 Chronic systolic (congestive) heart failure
CPT/HCPCS: 93010; 99214

== ENCOUNTER → 2023-07-05 13:57 | Outpatient (BNVA) | payer OTHER, SELFPAY | PROVIDERS: PCP Internal Medicine; Visit Provider Nurse Practitioner Family | DX: I42.9 Cardiomyopathy, unspecified (principal); I13.2 Hypertensive heart and chronic kidney disease with heart failure and with stage 5 chronic kidney disease, or end stage renal disease; N18.5 Chronic kidney disease, stage 5; I50.22 Chronic systolic (congestive) heart failure; R13.10 Dysphagia, unspecified | CPT/HCPCS: 93005; 99212 ==

== ENCOUNTER 2023-11-09 00:19 | Inpatient (IN) | payer OTHER, SELFPAY ==
[2023-11-09] VITALS (16 sets, daily range): BP systolic 123–140; BP diastolic 56–86; PULSE 78–105; RESP 16–23; TEMP 36.3–37.1; O2SAT 97–100; BMI 30.9
--- NOTE | ~2023-11-09 | XR_ITS ---
EXAMINATION: XR CHEST CLINICAL INFORMATION: Chest pain with inspiration and cough COMPARISON: 01/21/2023 TECHNIQUE: Frontal view of the chest was obtained. FINDINGS: Lung volumes are symmetric. No focal consolidation is seen. Biapical scarring noted. No evidence of pneumothorax, significant pleural effusion, or pulmonary edema. Cardiac silhouette appears at the upper limits of normal in size. Calcification is present at the aortic arch. Redemonstrated mild thoracic scoliosis. Clips are noted in the upper abdomen. XR/XR chest 1V IMPRESSION: No acute cardiopulmonary findings.
--- NOTE | 2023-11-09 00:29 | ECG_ITS ---
Test Reason : SOB Blood Pressure : / mmHG Vent. Rate : 105 BPM Atrial Rate : 105 BPM P-R Int : 136 ms QRS Dur : 088 ms QT Int : 360 ms P-R-T Axes : 052 012 059 degrees QTc Int : 475 ms Sinus tachycardia Otherwise normal ECG When compared to the previous EKG of Sinus tachycardia present Referred By: Generic ED Physician Electronically Signed By:Nirav Zamudio
[2023-11-09 00:50] LABS: MANUAL DIFF FLAG NO
[2023-11-09 00:55] LABS: Eosinophils Absolute Auto 0.2 X10*3/uL (0.0-0.4); Eosinophils Percent Auto 1.5 % (0-4); Imm Gran Abs Auto 0.12 X10*3/uL (0.00-0.03); Imm Gran Pct Auto 1.2 % (0.0-0.4); Lymphocytes Absolute Auto 2.9 X10*3/uL (1.2-4.9); Lymphocytes Percent Auto 28.7 % (20-40); Mean Corpuscular HGB Conc 27.2 g/dl (31.0-35.0); Mean Corpuscular Hemoglobin 18.9 pg (27.0-33.0); Mean Corpuscular Volume 69.6 fL (80.0-98.0); Mean Platelet Volume 9.9 fL (9.4-12.3); Monocytes Absolute Auto 0.6 X10*3/uL (0.1-1.2); Monocytes Percent Auto 6.3 % (2-11); NRBC Pct Auto 0.9 /100WBC (0.0-0.2); Neutrophils Absolute Auto 6.3 x10*3/uL (2.0-8.3); Neutrophils Percent Auto 62.3 % (45-73); Platelet Count 253 X10*3/uL (160-400); Red Blood Count 1.48 X10*6/uL (4.20-5.50); Red Cell Distribution Width 20.3 % (11.0-16.0); White Blood Count 10.2 X10*3/uL (4.8-10.8)
[2023-11-09 00:58] LABS: Hematocrit 10.3 % (37.0-47.0); Hemoglobin 2.8 g/dl (12.0-16.0)
[2023-11-09 01:17] LABS: Anion Gap 16 (12-20); Blood Urea Nitrogen 74 mg/dL (9-16); Calcium 7.7 mg/dL (8.4-10.2); Carbon Dioxide 13 mmol/L (22-29); Chloride 117 mmol/L (96-108); Creatinine Clr Calc Pharmacy 11.7; Estimated Glomerular Filt Rate 8; Glucose Random 98 mg/dL (60-115); Potassium 4.4 mmol/L (3.3-5.1); Sodium 142 mmol/L (135-145)
[2023-11-09 01:21] LABS: Mean Corpuscular HGB Conc 27.2 g/dl (31.0-35.0); Mean Corpuscular Volume 70.1 fL (80.0-98.0); NRBC Pct Auto 0.7 /100WBC (0.0-0.2); Platelet Count 252 X10*3/uL (160-400); Red Blood Count 1.47 X10*6/uL (4.20-5.50); White Blood Count 10.3 X10*3/uL (4.8-10.8)
[2023-11-09 01:22] LABS: Hemoglobin 2.8 g/dl (12.0-16.0)
[2023-11-09 01:23] LABS: Hematocrit 10.3 % (37.0-47.0)
[2023-11-09 01:28] LABS: Influenza A PCR NEGATIVE (Negative); Influenza B PCR NEGATIVE (Negative); Resp Syncy Virus RNA Qual PCR NEGATIVE (Negative); SARS COV2 PCR INHOUSE NEGATIVE (Negative)
[2023-11-09 01:32] LABS: Troponin-I High Sensitivity 8.4 ng/L (<3.5-17.0)
--- NOTE | 2023-11-09 01:35 | ED.GENADULT ---
HPI - General Adult General Chief complaint: General Medical Stated complaint: Sob Time Seen by Provider: 11/09/23 01:13 Source: patient, family, old records reviewed and dental service chief Mode of arrival: ambulatory Limitations: other (poor historian) History of Present Illness HPI narrative: 58 yo female with PMH of DM, CKD, HTN - has not been compliant with her medical work up and meds for a couple of years. Daughter states she was supposed to get HD but didn't follow up with renal. She only takes a diabetic pill and HTN pill. Has not had her labs checked as she has a hard time getting into a PCP. Yesterday she felt weak and short of breath. Had some chest pain with a cough. She denies black or bloody stools. daughter notes she only goes to [facility] and no labs done since 2021. The patient is not very forthcoming. MD complaint: fatigue and dyspnea on exertion Onset (ago): day(s) (1) Radiation: non-radiation Severity: moderate Pain Consistency: intermittent (resolved occurred with coughing) Relieving factors: rest Exacerbating factors: movement Associated symptoms: shortness of breath, weakness and other (fatigue) Treatments prior to arrival: none Related Data Previous Rx's Medication Instructions Recorded amlodipine 10 mg tablet 10 mg PO DAILY 90 days #90 tabs 08/02/23 carvedilol 3.125 mg tablet 3.125 mg PO BID #180 tabs 10/19/23 Allergies Allergy/AdvReac Type Severity Reaction Status Date / Time Penicillins Allergy Intermediate RASH Verified 07/05/23 14:05 Review of Systems Review of Systems: Constitutional : No Fever, No Chills, pos fatigue ENT/Mouth : No sore throat, No Rhinorrhea, No Swallowing Difficulty Eyes: No Eye Pain, No Swelling, No Redness Cardiovascular : pos Chest Pain, positive SOB, No Orthopnea, no edema Respiratory : No Cough, No Sputum, No Wheezing, positive dyspnea Gastrointestinal : No Nausea, No Vomiting, No Diarrhea, No abdominal Pain, No Hematochezia, No Melena Genitourinary : No Dysuria, No Urinary Frequency, No Hematuria Musculoskeletal : No joint pain, No Myalgias Skin : No Skin Lesions, No rash Neuro : pos Weakness, No Numbness, No Dizziness, No Headache Psych : No Anxiety/Panic, No Depression All other systems reviewed and are negative [facility] Past Medical History Attestation statement: The following information was validated with the patient. Source: old records reviewed Medical History CKD (chronic kidney disease) stage 5, GFR less than 15 ml/min Essential hypertension Normocytic anemia Surgical History History of surgery Status post dilation and curettage History of abdominal surgery History of extraction of renal calculus History of tubal ligation Family History Family History Father Throat cancer Mother Hypertension Daughter In good health Daughter In good health Sister In good health Family/Other Breast cancer Social History Social History Housing: Apartment Alcohol intake: never Patient Tobacco Use Status: Former Tobacco user Quit Date: 2011 Tobacco use type: Cigarette Years Smoked: 30 +/- Smoked in Last 30 Days: No e-Cigarette/Vaping Use: Never Used Second Hand Smoke Exposure: No Use of substances other than those prescribed or required for medical reasons: No Advance Directives: No Advance Directives Information Provided: No Patient : No service: No Current occupational status: unemployed Cognitive needs: No Hearing needs: No Vision needs: No Physical Exam ED Vital Signs: Vital Signs - 24 hr 11/09/23 00:23 11/09/23 02:22 11/09/23 02:28 Temperature 97.8 F 97.4 F Pulse Rate 100 105 H 100 Respiratory Rate 16 19 23 H Blood Pressure 123/56 L 133/66 123/72 Pulse Oximetry 100 100 Oxygen Delivery Method Room Air Room Air 11/09/23 02:37 Temperature 97.4 F Pulse Rate 92 Respiratory Rate 20 Blood Pressure 127/68 Pulse Oximetry Oxygen Delivery Method BMI result Body Mass Index 30.9 Appearance: Alert. Oriented X3. No acute distress. Eyes: Pupils equal, round and reactive to light. pale conjunctiva ENT: Pharynx normal. Neck: Normal inspection. Neck supple. CVS: Normal heart rate and rhythm. Pulses normal. Respiratory: No respiratory distress. Breath sounds normal. Abdomen: Soft and nontender. Skin: Skin warm and dry. pale skin color. Normal skin turgor. Extremities: No lower extremity edema. No calf ttp Neuro: Oriented X 3. No motor deficit. No sensory deficit. Course Course Course Narrative: patient doing well at this time has no complaints Reevaluation(s) Reevaluation #1: tolerating transfusion appropriate response at this time up to 4.2 can go to floors she is asymptomatic Medications Administered Discontinued Medications Generic Name Dose Route Start Last Admin Trade Name Cole PRN Reason Stop Dose Admin Sodium Chloride 100 mls @ 100 mls/hr 11/09/23 01:24 11/09/23 03:42 Ns IV 11/09/23 02:23 Infused ONCE ONE Infusion Medical Decision Making Medical Decision Making [facility] Narrative: 58 yo female with PMH of DM, CKD, HTN who has not had her labs checked in 2 years now presents with LOBATO and fatigue, weakness with a brief episode of chest pain that was atypical. At this time she is not a good historian. She is very anemic but I suspect that this is chronic as she has normal VS given a hemoglobin of 2.8. Will start 4 units in the ED and likely intermittently bolus lasix between. She denies GIB symptoms. Differential Diagnosis Differential Diagnoses: The differential diagnosis associated with the presentation includes anemia, CKD, non-compliance Admission/Observation Consideration of admission/observation: Escalation of care including admission/observation considered will need admission Consult Healthcare Provider Management of the patient was discussed with: Hospitalist (will admit notified Dr. Sloan at 630am) Lab Data [facility] Lab Attestation statement: I reviewed the patient's lab results. suspect based off her symptoms and VS that this anemia is chronic and not acute 11/09/23 05:49 11/09/23 00:44 Labs: Lab Results 11/09/23 11/09/23 11/09/23 Range/Units 00:44 01:07 01:36 WBC 10.2 10.3 (4.8-10.8) X10*3/uL RBC 1.48 L D 1.47 L (4.20-5.50) X10*6/uL Hgb 2.8 L* D 2.8 L* (12.0-16.0) g/dl Hct 10.3 L* D 10.3 L* (37.0-47.0) % MCV 69.6 L 70.1 L (80.0-98.0) fL MCH 18.9 L 19.0 L (27.0-33.0) pg MCHC 27.2 L 27.2 L (31.0-35.0) g/dl RDW 20.3 H 20.0 H (11.0-16.0) % Plt Count 253 252 (160-400) X10*3/uL MPV 9.9 10.0 (9.4-12.3) fL Immature Gran % (Auto) 1.2 H (0.0-0.4) % Neut % (Auto) 62.3 (45-73) % Lymph % (Auto) 28.7 (20-40) % [place] % (Auto) 6.3 (2-11) % Eos % (Auto) 1.5 (0-4) % Baso % (Auto) 0.0 (0-2) % Lymph # (Auto) 2.9 (1.2-4.9) X10*3/uL [place] # (Auto) 0.6 (0.1-1.2) X10*3/uL Eos # (Auto) 0.2 (0.0-0.4) X10*3/uL Baso # (Auto) 0.0 (0.0-0.2) X10*3/uL Abs Immat Gran (auto) 0.12 H (0.00-0.03) X10*3/uL Absolute Neuts (auto) 6.3 (2.0-8.3) x10*3/uL Absolute Nucleated RBC 0.090 H 0.070 H (0.0-0.012) X10*3/uL Nucleated RBC % (auto) 0.9 H 0.7 H (0.0-0.2) /100WBC Sodium 142 (135-145) mmol/L Potassium 4.4 (3.3-5.1) mmol/L Chloride 117 H (96-108) mmol/L Carbon Dioxide 13 L (22-29) mmol/L Anion Gap 16 (12-20) BUN 74 H (9-16) mg/dL Creatinine 5.76 H* (0.5-1.4) mg/dL Estim Creat Clear Calc 11.7 Estimated GFR 8 Random Glucose 98 (60-115) mg/dL Calcium 7.7 L D (8.4-10.2) mg/dL Iron 9 L (30-160) mcg/dL TIBC 305 (228-428) mcg/dL % Saturation 3 L (15-50) % Unsat Iron Binding 296 ug/dL Total Bilirubin 0.2 (0.0-1.0) mg/dL Direct Bilirubin < 0.2 (0.0-0.5) mg/dL AST 9 (5-31) U/L ALT 7 (0-31) U/L Alkaline Phosphatase 77 (39-117) U/L Lactate Dehydrogenase 168 (122-220) U/L Troponin I High Sens 8.4 (<3.5-17.0) ng/L Total Protein 6.6 (6.5-8.0) g/dL Albumin 3.4 L (3.5-5.0) g/dL Vitamin B12 534 (200-900) pg/mL Folate 9.6 (> or = 4.0) ng/mL Urine Color Urine Appearance Urine pH (5.0-9.0) Ur Specific [place] (1.005-1.025) Urine Protein (Neg-Trace) mg/dL Urine Glucose (UA) (Negative) mg/dL Urine Ketones (Negative) mg/dL Urine Blood (Negative) Urine Nitrite (Negative) Ur Leukocyte Esterase (Negative) Urine RBC (0-2) /HPF Urine WBC (0-5) /HPF Ur Squamous Epith Cells (0-2) /HPF Urine Bacteria (None Seen) Hyaline Casts (0-2) /LPF Stool Occult Blood (NEGATIVE) Influenza Type A (PCR) NEGATIVE (Negative) Influenza Type B (PCR) NEGATIVE (Negative) RSV RNA Qual (PCR) NEGATIVE (Negative) SARS-CoV-2 RNA (RT-PCR) NEGATIVE (Negative) Blood Type A Positive Antibody Screen NEGATIVE Crossmatch See Detail 11/09/23 11/09/23 Range/Units 03:04 05:49 WBC 10.0 (4.8-10.8) X10*3/uL RBC 2.03 L D (4.20-5.50) X10*6/uL Hgb 4.2 L* D (12.0-16.0) g/dl Hct 14.6 L* D (37.0-47.0) % MCV 71.9 L (80.0-98.0) fL MCH 20.7 L (27.0-33.0) pg MCHC 28.8 L (31.0-35.0) g/dl RDW 19.7 H (11.0-16.0) % Plt Count 240 (160-400) X10*3/uL MPV 9.5 (9.4-12.3) fL Immature Gran % (Auto) (0.0-0.4) % Neut % (Auto) (45-73) % Lymph % (Auto) (20-40) % [place] % (Auto) (2-11) % Eos % (Auto) (0-4) % Baso % (Auto) (0-2) % Lymph # (Auto) (1.2-4.9) X10*3/uL [place] # (Auto) (0.1-1.2) X10*3/uL Eos # (Auto) (0.0-0.4) X10*3/uL Baso # (Auto) (0.0-0.2) X10*3/uL Abs Immat Gran (auto) (0.00-0.03) X10*3/uL Absolute Neuts (auto) (2.0-8.3) x10*3/uL Absolute Nucleated RBC 0.100 H (0.0-0.012) X10*3/uL Nucleated RBC % (auto) 1.0 H (0.0-0.2) /100WBC Sodium (135-145) mmol/L Potassium (3.3-5.1) mmol/L Chloride (96-108) mmol/L Carbon Dioxide (22-29) mmol/L Anion Gap (12-20) BUN (9-16) mg/dL Creatinine (0.5-1.4) mg/dL Estim Creat Clear Calc Estimated GFR Random Glucose (60-115) mg/dL Calcium (8.4-10.2) mg/dL Iron (30-160) mcg/dL TIBC (228-428) mcg/dL % Saturation (15-50) % Unsat Iron Binding ug/dL Total Bilirubin (0.0-1.0) mg/dL Direct Bilirubin (0.0-0.5) mg/dL AST (5-31) U/L ALT (0-31) U/L Alkaline Phosphatase (39-117) U/L Lactate Dehydrogenase (122-220) U/L Troponin I High Sens (<3.5-17.0) ng/L Total Protein (6.5-8.0) g/dL Albumin (3.5-5.0) g/dL Vitamin B12 (200-900) pg/mL Folate (> or = 4.0) ng/mL Urine Color Yellow Urine Appearance Clear Urine pH 6.0 (5.0-9.0) Ur Specific [place] 1.010 (1.005-1.025) Urine Protein 100 (2+) H (Neg-Trace) mg/dL Urine Glucose (UA) Negative (Negative) mg/dL Urine Ketones Negative (Negative) mg/dL Urine Blood Trace H (Negative) Urine Nitrite Negative (Negative) Ur Leukocyte Esterase Negative (Negative) Urine RBC 0-2 (0-2) /HPF Urine WBC 0-5 (0-5) /HPF Ur Squamous Epith Cells 0-2 (0-2) /HPF Urine Bacteria None Seen (None Seen) Hyaline Casts 0-2 (0-2) /LPF Stool Occult Blood NEGATIVE (NEGATIVE) Influenza Type A (PCR) (Negative) Influenza Type B (PCR) (Negative) RSV RNA Qual (PCR) (Negative) SARS-CoV-2 RNA (RT-PCR) (Negative) Blood Type Antibody Screen Crossmatch Independent Interpretation I performed an independent interpretation of an: EKG and Plain X-Ray (no CHF) Interpretation: Rate: 105 Rhythm: sinus tachycardia [place]: normal Normal P waves. Normal MOODY. Normal QRS complex. ST T wave : normal no MAGALY qTC: 475 prior studies: no acute ischemia The study has been interpreted contemporaneously by me. . Radiology Impression Discussion of test interpretation with radiology: I have reviewed the radiologist's reading. Independent Historian Clinical information obtained from an independent historian. History obtained from or confirmed by: Other (daughter) External Record Review External record reviewed: Inpatient record and Prior outpatient labs Critical Care Time Critical Care Time Critical Care Time: Yes Total Critical Care Time: 75 Attestation: review of labs, discussion with family, transfusion of PRBCs - multiple for hemoglobin of 2.8, admission I attest to this time spent taking care of the patient Discharge Plan Discharge Clinical Impression: Severe anemia, Dyspnea on exertion CKD (chronic kidney disease) Qualifiers: Chronic kidney disease stage: unspecified stage Qualified Code(s): N18.9 - Chronic kidney disease, unspecified Patient Disposition: Admitted As Inpatient
[2023-11-09 01:50] LABS: Alanine Aminotransferase 7 U/L (0-31); Albumin Level 3.4 g/dL (3.5-5.0); Alkaline Phosphatase 77 U/L (39-117); Aspartate Amino Transferase 9 U/L (5-31); Bilirubin Direct < 0.2 mg/dL (0.0-0.5); Bilirubin Total 0.2 mg/dL (0.0-1.0); Iron 9 mcg/dL (30-160); Lactate Dehydrogenase 168 U/L (122-220); Percent Iron Saturation 3 % (15-50); Total Iron Binding Capacity 305 mcg/dL (228-428); Total Protein 6.6 g/dL (6.5-8.0); Unsaturated Iron Binding 296 ug/dL
[2023-11-09 02:45] LABS: Folate 9.6 ng/mL (> or = 4.0); Vitamin B12 534 pg/mL (200-900)
[2023-11-09 03:11] LABS: Appearance Urine Clear; Color Urine Yellow; Glucose Urine UA Negative (Negative); Leukocyte Esterase Urine Negative (Negative); Nitrite Urine Negative (Negative); UMIC TRIGGER UACC YES; Urine Blood Trace (Negative); Urine Ketones Negative (Negative); Urine Protein 100 (2+) mg/dL (Neg-Trace)
[2023-11-09 03:12] LABS: OBS Int Ctl Valid YES; OBS1 NEGATIVE (NEGATIVE)
[2023-11-09 03:13] LABS: Bacteria Urine None Seen (None Seen); Hyaline Casts Urine 0-2 /LPF (0-2); RBC Urine 0-2 /HPF (0-2); Squamous Epithelial Cell Urine 0-2 /HPF (0-2); WBC Urine 0-5 /HPF (0-5)
[2023-11-09 05:57] LABS: Mean Corpuscular HGB Conc 28.8 g/dl (31.0-35.0); Mean Corpuscular Hemoglobin 20.7 pg (27.0-33.0); Mean Corpuscular Volume 71.9 fL (80.0-98.0); Mean Platelet Volume 9.5 fL (9.4-12.3); Platelet Count 240 X10*3/uL (160-400); Red Blood Count 2.03 X10*6/uL (4.20-5.50); Red Cell Distribution Width 19.7 % (11.0-16.0)
[2023-11-09 05:59] LABS: Hemoglobin 4.2 g/dl (12.0-16.0)
[2023-11-09 06:00] LABS: Hematocrit 14.6 % (37.0-47.0)
--- NOTE | 2023-11-09 06:46 | PC.NURSE ---
late entry - pt arrived via waiting room with daughter A&Ox4, ambulatory, reporting sob, chest tightness and dizziness. labs and vitals done by mice raiser. pt brought back to ED room 12 for critical H&H 2.8 and 10.3, iv line placed #20g L wrist, 1 unit rbc given, 2nd unit rbc infusing now at 100ml/hr. pt is taco risk, poor kidney function.Vital signs stable throughout entirety of shift, no O2 required. O2 100%. on classroom monitor, tolerating transfusions well. [place] Islander speaking only. call hoffman within reach. H&H improving, pt to be admitted inpatient . will call daughter to let her know plan.
--- NOTE | 2023-11-09 07:28 | PHA.MEDREC ---
Pharmacy Consult ? Medication Reconciliation Pharmacy has completed the medication reconciliation. Spoke with patient in bed 12. Patient was able to confirm medications.
--- NOTE | 2023-11-09 08:49 | P.HPHOSP_ITS ---
History of Present Illness Date of Service: 11/09/23 Chief Complaint: Chest pain, anemia This 58-year-old woman with stage 5 chronic kidney disease without hemodialysis initiation yet, along with uncontrolled hypertension, chronic systolic congestive heart failure (ejection fraction 40-45% as of December 2022), and chronic iron deficiency anemia. Despite medical recommendations, she has declined colonoscopy and is non-adherent to medications and follow-up appointments. Presenting symptoms include weakness, shortness of breath, and chest pain reported yesterday. She denies melena. Emergency department findings reveal a hemoglobin level of 4.2 and hematocrit of 14, with negative occult blood and troponin tests. The ECG shows no acute ischemic changes. Creatinine levels are elevated at 5.76, and CO2 levels are low at 13. Review of Systems 2 Review of Systems: Gen: no fever Resp: no sob, no cough CV: no chest, no LOBATO, no leg edema GI: No n/v, no abd pain, no melana Neuro: No confusion Yes all other systems are reviewed and are negative [facility] Medical History CKD (chronic kidney disease) stage 5, GFR less than 15 ml/min Anemia CKD (chronic kidney disease) Chronic systolic (congestive) heart failure Cardiomyopathy Essential hypertension Normocytic anemia Family History Father Throat cancer Mother Hypertension Daughter In good health Daughter In good health Sister In good health Family/Other Breast cancer Surgical History History of surgery Status post dilation and curettage History of abdominal surgery History of extraction of renal calculus History of tubal ligation Social History Household Members: Children Housing: Apartment Do you presently have visiting nurse or other home services: Yes (visiting nurse) Alcohol intake: never Patient Tobacco Use Status: Never used Tobacco Tobacco use type: Cigarette Years Smoked: 30 +/- e-Cigarette/Vaping Use: Never Used Second Hand Smoke Exposure: No service: No Current occupational status: unemployed Cognitive needs: No Hearing needs: No Vision needs: No Meds Allergies Allergy/AdvReac Type Severity Reaction Status Date / Time Penicillins Allergy Intermediate RASH Verified 01/08/24 09:53 Physical Exam 2 Vital Signs and Narrative: Vital Signs: Last Vital Signs Temp 97.6 F 11/09/23 06:40 Pulse 92 11/09/23 06:40 Resp 17 11/09/23 06:40 BP 129/69 11/09/23 06:40 Pulse Ox 100 11/09/23 06:18 O2 Del Method Room Air 11/09/23 06:18 BMI result Body Mass Index 30.9 Constitutional: Alert, in no distress, overweight. Mental Status: Oriented to person, place and time. Eyes: Pupils are equal, round and reactive to light. Ear, Nose and Throat: Oropharynx clear, mucous membranes moist. Ears and nose without deformities. Respiratory: Clear to auscultation. No wheezing, rales or rhonchi. Cardiovascular: S1 S2 regular. No murmurs, rubs or gallops. Gastrointestinal: Abdomen soft, non-tender, non-distended. Normal bowel sounds.?rectal exam deffered Neurologic: Cranial nerves II-XII grossly intact. No focal neurological deficits. Moves all extremities spontaneously.? Skin: No rashes or lesions.? Musculoskeletal: No cyanosis or clubbing. Psychiatric: Normal mood and affect? Results Labs 11/13/23 06:03 11/13/23 06:03 Labs: Laboratory Results - last 24 hr 11/09/23 11/09/23 11/09/23 00:44 01:07 01:36 MCV 69.6 L 70.1 L MCH 18.9 L 19.0 L MCHC 27.2 L 27.2 L RDW 20.3 H 20.0 H Plt Count 253 252 MPV 9.9 10.0 Immature Gran % (Auto) 1.2 H Neut % (Auto) 62.3 Lymph % (Auto) 28.7 [place] % (Auto) 6.3 Eos % (Auto) 1.5 Baso % (Auto) 0.0 Lymph # (Auto) 2.9 [place] # (Auto) 0.6 Eos # (Auto) 0.2 Baso # (Auto) 0.0 Abs Immat Gran (auto) 0.12 H Absolute Neuts (auto) 6.3 Absolute Nucleated RBC 0.090 H 0.070 H Nucleated RBC % (auto) 0.9 H 0.7 H Anion Gap 16 Estim Creat Clear Calc 11.7 Estimated GFR 8 Random Glucose 98 Calcium 7.7 L D Iron 9 L TIBC 305 % Saturation 3 L Unsat Iron Binding 296 Total Bilirubin 0.2 Direct Bilirubin < 0.2 AST 9 ALT 7 Alkaline Phosphatase 77 Lactate Dehydrogenase 168 Troponin I High Sens 8.4 Total Protein 6.6 Albumin 3.4 L Vitamin B12 534 Folate 9.6 Urine Color Urine Appearance Urine pH Ur Specific [place] Urine Protein Urine Glucose (UA) Urine Ketones Urine Blood Urine Nitrite Ur Leukocyte Esterase Urine RBC Urine WBC Ur Squamous Epith Cells Urine Bacteria Hyaline Casts Stool Occult Blood Influenza Type A (PCR) NEGATIVE Influenza Type B (PCR) NEGATIVE RSV RNA Qual (PCR) NEGATIVE SARS-CoV-2 RNA (RT-PCR) NEGATIVE Blood Type A Positive Antibody Screen NEGATIVE Crossmatch See Detail 11/09/23 11/09/23 03:04 05:49 MCV 71.9 L MCH 20.7 L MCHC 28.8 L RDW 19.7 H Plt Count 240 MPV 9.5 Immature Gran % (Auto) Neut % (Auto) Lymph % (Auto) [place] % (Auto) Eos % (Auto) Baso % (Auto) Lymph # (Auto) [place] # (Auto) Eos # (Auto) Baso # (Auto) Abs Immat Gran (auto) Absolute Neuts (auto) Absolute Nucleated RBC 0.100 H Nucleated RBC % (auto) 1.0 H Anion Gap Estim Creat Clear Calc Estimated GFR Random Glucose Calcium Iron TIBC % Saturation Unsat Iron Binding Total Bilirubin Direct Bilirubin AST ALT Alkaline Phosphatase Lactate Dehydrogenase Troponin I High Sens Total Protein Albumin Vitamin B12 Folate Urine Color Yellow Urine Appearance Clear Urine pH 6.0 Ur Specific [place] 1.010 Urine Protein 100 (2+) H Urine Glucose (UA) Negative Urine Ketones Negative Urine Blood Trace H Urine Nitrite Negative Ur Leukocyte Esterase Negative Urine RBC 0-2 Urine WBC 0-5 Ur Squamous Epith Cells 0-2 Urine Bacteria None Seen Hyaline Casts 0-2 Stool Occult Blood NEGATIVE Influenza Type A (PCR) Influenza Type B (PCR) RSV RNA Qual (PCR) SARS-CoV-2 RNA (RT-PCR) Blood Type Antibody Screen Crossmatch Imaging Radiologist's Impressions: Impressions Chest X-Ray 11/09/23 00:58 IMPRESSION: No acute cardiopulmonary findings. Assessment and Plan (1) Anemia in chronic kidney disease (CKD): Qualifiers: Chronic kidney disease stage: stage 5, not on chronic dialysis Q ualified Code(s): N18.5 - Chronic kidney disease, stage 5; D63.1 - Anemia in chronic kidney disease Status: Acute Plan This 58-year-old woman with stage 5 chronic kidney disease not on HD yet, along with uncontrolled hypertension, chronic systolic congestive heart failure (ejection fraction 40-45% as of December 2022), and chronic iron deficiency anemia here with symptomatic profound anemia. Anemia likely combination of chronic anemia and possible Acute Blood loss anemia (ABLA) -Transfusion, IV PPI, GI consult for possible endoscopy, serial H/H CKD 5, nearing HD but no urgent inciation for HD -Nephrology consult -Sodium Bicab for Metabolic acidosis Chronic systolic heart failure--compensated HTN--resume Coreg and Norvasc DVT Prophylaxis--compression device Full code Admission for at least 2 midnights for management of symptomatic anemia Quality Stroke Does the patient have a stroke diagnosis?: No VTE Prior VTE?: No VTE Risk Level:: Medical - moderate - high VTE Device Contraindication: Treatment Not Indicated VTE Drug Contraindication: N/A - Med Ordered
--- NOTE | 2023-11-09 09:01 | P.EN_ITS ---
Event Note Date of Service: 11/09/23 Event Note: Noncompliant Advanced CKD patient of [facility] . All data reviewed. No acute indication for initiation of HD. Labs ordered. Shall F/U closely
--- NOTE | 2023-11-09 09:01 | PM.EVENT ---
Event Note Date of Service: 11/09/23 Event Note: Noncompliant Advanced CKD patient of [facility] . All data reviewed. No acute indication for initiation of HD. Labs ordered. Shall F/U closely
[2023-11-09] MEDS: Furosemide 20 MG/2 ML VIAL IVPUSH (10:14)
[2023-11-09] MEDS: Sodium Bicarbonate 650 MG TABLET 1300 MG PO ×3 (10:15→22:17)
[2023-11-09] MEDS: Pantoprazole Sodium 40 MG/10 ML VIAL IVPUSH ×2 (10:15→15:21)
[2023-11-09] MEDS: carvediloL 3.125 MG TABLET PO ×2 (10:15→22:17)
[2023-11-09] MEDS: amLODIPine Besylate 10 MG TABLET PO (10:15)
--- NOTE | 2023-11-09 10:23 | PC.NURSE ---
able to stand and utilize commode with one assist. second unit of blood transfused. patient offering no complaints. daughter is at bedside. medicated per the NOV, second IV established in patient's R AC. vss, no obvious signs/symptoms of distress noted.
[2023-11-09 10:34] LABS: Iron 36 mcg/dL (30-160); Percent Iron Saturation 11 % (15-50); Total Iron Binding Capacity 318 mcg/dL (228-428); Unsaturated Iron Binding 282 ug/dL
--- NOTE | 2023-11-09 11:02 | PC.NURSE ---
third unit of blood transfusing at this time. patient offering no complaints, no signs/symptoms of reaction at this time.
--- NOTE | 2023-11-09 11:46 | P.CNGI_ITS ---
History of Present Illness Data of Consult Service Date: 11/09/23 Requesting physician: Sravan Traylor Primary Care Provider: Britt De MD [facility] Reason for consult: Anemia This is a 58-year-old female with past medical history of advanced chronic kidney disease, cardiomyopathy with EF 40-45%, severe hypertension, who presented to the hospital for symptomatic anemia. Gastroenterology has been consulted for the same. Patient reported subacute symptoms of shortness of breath, chest pressure and fatigue. Does not report abdominal pain, nausea, changes in bowel habits, blood in stool, blood in urine. When she presented to the emergency room yesterday, her hemoglobin was found to be 2.8 was confirmed on recheck. Thereafter she underwent 2 unit blood transfusion with appropriate increase to 4.2. Creatinine is 5.7, progressed from 5.5 in 2021. Accompanied with metabolic acidosis. Patient has previously declined outpatient colorectal cancer screening. Review of Systems 2 Review of Systems: Yes all other systems are reviewed and are negative PMFSH Past Medical History Medical History CKD (chronic kidney disease) stage 5, GFR less than 15 ml/min Essential hypertension Normocytic anemia Family History Family History Father Throat cancer Mother Hypertension Daughter In good health Daughter In good health Sister In good health Family/Other Breast cancer Surgical History Surgical History History of surgery Status post dilation and curettage History of abdominal surgery History of extraction of renal calculus History of tubal ligation Social History Social History Housing: Apartment Alcohol intake: never Patient Tobacco Use Status: Former Tobacco user Quit Date: 2011 Tobacco use type: Cigarette Years Smoked: 30 +/- Smoked in Last 30 Days: No e-Cigarette/Vaping Use: Never Used Second Hand Smoke Exposure: No Use of substances other than those prescribed or required for medical reasons: No Advance Directives: No Advance Directives Information Provided: No Patient : No service: No Current occupational status: unemployed Cognitive needs: No Hearing needs: No Vision needs: No Meds Allergies Allergy/AdvReac Type Severity Reaction Status Date / Time Penicillins Allergy Intermediate RASH Verified 07/05/23 14:05 Active Medications: Current Medications Amlodipine Besylate (Amlodipine Besylate 10 Mg Tablet) 10 mg PO DAILY [facility]; Protocol Last Admin: 11/09/23 10:15 Dose: 10 mg Carvedilol (Carvedilol 3.125 Mg Tablet) 3.125 mg PO BID [facility]; Protocol Last Admin: 11/09/23 10:15 Dose: 3.125 mg Pantoprazole Sodium (Pantoprazole Sodium 40 Mg/10 Ml Vial) 40 mg IVPUSH BID@0630,1630 [facility] Last Admin: 11/09/23 10:15 Dose: 40 mg Sodium Bicarbonate (Sodium Bicarbonate 650 Mg Tablet) 1,300 mg PO TID [facility] Last Admin: 11/09/23 10:15 Dose: 1,300 mg Sodium Chloride (0.9 % Sodium Chloride Flush 3 Ml Syringe) 3 ml IVFLUSH QSHIFT [facility] Physical Exam 2 Vital Signs: Vital Signs: Last Vital Signs Temp 98.6 F 11/09/23 11:14 Pulse 94 11/09/23 11:14 Resp 20 11/09/23 11:14 BP 129/67 11/09/23 11:14 Pulse Ox 99 11/09/23 09:45 O2 Del Method Room Air 11/09/23 09:45 BMI result Body Mass Index 30.9 No apparent distress Pale appearing Speaking in full sentences No overt respiratory distress Abdomen soft, nontender, nondistended Alert and oriented x3, no focal deficits Results Labs 11/09/23 05:49 11/09/23 00:44 Labs: Short CBC 11/09/23 11/09/23 11/09/23 Range/Units 00:44 01:07 05:49 WBC 10.2 10.3 10.0 (4.8-10.8) X10*3/uL Hgb 2.8 L* D 2.8 L* 4.2 L* D (12.0-16.0) g/dl Hct 10.3 L* D 10.3 L* 14.6 L* D (37.0-47.0) % Plt Count 253 252 240 (160-400) X10*3/uL BMP 11/09/23 00:44 Sodium 142 Potassium 4.4 Chloride 117 H Carbon Dioxide 13 L BUN 74 H Creatinine 5.76 H* Calcium 7.7 L D Liver Function 03/08/24 Range/Units 00:44 Total Bilirubin 0.2 (0.0-1.0) mg/dL Direct Bilirubin < 0.2 (0.0-0.5) mg/dL AST 9 (5-31) U/L ALT 7 (0-31) U/L Alkaline Phosphatase 77 (39-117) U/L Albumin 3.4 L (3.5-5.0) g/dL Urine 11/09/23 Range/Units 03:04 Urine Color Yellow Urine Appearance Clear Urine pH 6.0 (5.0-9.0) Ur Specific [place] 1.010 (1.005-1.025) Urine Protein 100 (2+) H (Neg-Trace) mg/dL Urine Glucose (UA) Negative (Negative) mg/dL Assessment and Plan (1) Acute on chronic anemia: Status: Acute (2) Cardiomyopathy: Status: Acute (3) CKD (chronic kidney disease) stage 5, GFR less than 15 ml/min: Status: Acute (4) Essential hypertension: Status: Acute Plan Differentials include occult GI losses, anemia of chronic disease, bone marrow suppression. We will need bidirectional endoscopy for further evaluation, however patient with known cardiomyopathy of unknown origin. Nuclear stress test was recommended at last office visit with cardiology however patient did not follow through. Will need cardiac optimization and clearance prior to proceeding with EGD/colo especially as procedure not emergent and patient without any overt bleeding at this time. Transfuse for goal H/H at least 7. Iron studies added on to 11/08 12.40am labs (pre-transfusion). I remain available if cardiac workup is completed while the patient is still admitted, otherwise we will make arrangements to set up the endoscopy as outpatient. Procedures Date of Service Date of Service: 11/09/23
--- NOTE | 2023-11-09 14:32 | PC.NURSE ---
fourth unit of blood infusing. patient continues to independently transfer self onto commode. requesting medication for a headache. offering no other complaints at this time.
[2023-11-09] MEDS: Acetaminophen 325 MG TABLET 650 MG PO ×2 (15:21→23:29)
[2023-11-09] MEDS: 0.9 % Sodium Chloride Flush 3 ML SYRINGE IVFLUSH ×2 (15:22→22:18)
[2023-11-09 17:12] LABS: Ferritin 3 ng/mL (10-250)
--- NOTE | 2023-11-09 17:37 | PC.NURSE ---
Assumed care of pt @ 17:15, pumped alarming when I entered room, restarted without any issues. PT offers no complaints @ this time. Plan of care ongoing.
--- NOTE | 2023-11-09 20:00 | PC.NURSE ---
Assumed care of pt
--- NOTE | 2023-11-09 20:46 | PC.NURSE ---
On assessment, pt has no complaints, planning for admission.
[2023-11-10 02:37] VITALS: BP 135/69; PULSE 86; RESP 14; TEMP 36.1; O2SAT 98
[2023-11-10] MEDS: Pantoprazole Sodium 40 MG/10 ML VIAL IVPUSH ×2 (05:38→16:02)
[2023-11-10 06:49] LABS: Hematocrit 24.6 % (37.0-47.0); Hemoglobin 7.9 g/dl (12.0-16.0); Mean Corpuscular HGB Conc 32.1 g/dl (31.0-35.0); Mean Corpuscular Hemoglobin 25.2 pg (27.0-33.0); Mean Corpuscular Volume 78.3 fL (80.0-98.0); Mean Platelet Volume 9.9 fL (9.4-12.3); NRBC Pct Auto 0.7 /100WBC (0.0-0.2); Platelet Count 206 X10*3/uL (160-400); Red Blood Count 3.14 X10*6/uL (4.20-5.50); Red Cell Distribution Width 21.1 % (11.0-16.0); White Blood Count 8.9 X10*3/uL (4.8-10.8)
[2023-11-10 06:55] LABS: Anion Gap 15 (12-20); Blood Urea Nitrogen 72 mg/dL (9-16); Calcium 8.1 mg/dL (8.4-10.2); Carbon Dioxide 14 mmol/L (22-29); Chloride 121 mmol/L (96-108); Creatinine Clr Calc Pharmacy 13.3; Estimated Glomerular Filt Rate 9; Glucose Random 84 mg/dL (60-115); Potassium 4.2 mmol/L (3.3-5.1); Sodium 146 mmol/L (135-145)
[2023-11-10 07:00] LABS: Calcium 8.2 mg/dL (8.4-10.2); Phosphorus 6.1 mg/dL (2.7-4.5)
[2023-11-10 07:05] LABS: Parathyroid Hormone Intact 732.8 pg/mL (8.7-77.1)
[2023-11-10 07:17] LABS: Ferritin 14 ng/mL (10-250); Vitamin D 25-OH Total 18.3 ng/mL (>30)
[2023-11-10 07:43] VITALS: BP 154/77; PULSE 100; RESP 18; TEMP 36.7; O2SAT 98
[2023-11-10] MEDS: 0.9 % Sodium Chloride Flush 3 ML SYRINGE IVFLUSH ×3 (08:49→20:35)
[2023-11-10] MEDS: Sodium Bicarbonate 650 MG TABLET 1300 MG PO ×3 (09:31→20:35)
[2023-11-10] MEDS: carvediloL 3.125 MG TABLET PO ×2 (09:31→20:35)
[2023-11-10] MEDS: amLODIPine Besylate 10 MG TABLET PO (09:31)
--- NOTE | 2023-11-10 10:21 | P.PNIM_ITS ---
Subjective Subjective Date of Service: 11/10/23 Interval History: Seen and evaluated this morning Hb recovered to 7.9 after transfusion still reporting blood with stool Review of Systems Review of Systems: Yes all other systems are reviewed and are negative Physical Exam 2 Vital Signs: Vital Signs: Last Vital Signs Temp 98.0 F 11/10/23 07:43 Pulse 100 11/10/23 07:43 Resp 18 11/10/23 07:43 BP 154/77 H 11/10/23 07:43 Pulse Ox 98 11/10/23 07:43 O2 Del Method Room Air 11/10/23 07:43 BMI result Body Mass Index 30.9 Const: Other: Constitutional : Awake, interactive, not in distress Neck : Normal inspection, Supple Cardiovascular : RRR, no JVP, no lower extremity edema Respiratory : good bilateral air entry, no crackles, wheezes or rhonchi Gastrointestinal: soft, lax, Normal bowel sounds, Non tender Skin : Warm, Dry Neurological : Alert & oriented x3, No focal deficit Objective Data Active Medications Acetaminophen (Acetaminophen 325 Mg Tablet) 650 mg PO Q6H PRN PRN Reason: Headache Last Admin: 11/09/23 23:29 Dose: 650 mg Documented By: GIAN Amlodipine Besylate (Amlodipine Besylate 10 Mg Tablet) 10 mg PO DAILY [facility]; Protocol Last Admin: 11/10/23 09:31 Dose: 10 mg Documented By: KIM Carvedilol (Carvedilol 3.125 Mg Tablet) 3.125 mg PO BID [facility]; Protocol Last Admin: 11/10/23 09:31 Dose: 3.125 mg Documented By: KIM Pantoprazole Sodium (Pantoprazole Sodium 40 Mg/10 Ml Vial) 40 mg IVPUSH BID@0630,1630 [facility] Last Admin: 11/10/23 05:38 Dose: 40 mg Documented By: GIAN Sodium Bicarbonate (Sodium Bicarbonate 650 Mg Tablet) 1,300 mg PO TID [facility] Last Admin: 11/10/23 09:31 Dose: 1,300 mg Documented By: KIM Sodium Chloride (0.9 % Sodium Chloride Flush 3 Ml Syringe) 3 ml IVFLUSH QSHIFT [facility] Last Admin: 11/10/23 08:49 Dose: 3 ml Documented By: KIM Labs 11/10/23 06:14 11/10/23 06:14 Labs: Laboratory Results - last 24 hr 11/09/23 11/09/23 11/09/23 00:44 01:07 05:49 MCV MCH MCHC RDW Plt Count MPV Absolute Nucleated RBC Nucleated RBC % (auto) Anion Gap Estim Creat Clear Calc Estimated GFR Random Glucose Estimat Average Glucose TNP Hemoglobin A1c % TNP Calcium Phosphorus Iron TIBC % Saturation Unsat Iron Binding Ferritin 3 L 25-OH Vitamin D Total PTH Intact Blood Type A Positive Antibody Screen NEGATIVE Crossmatch See Detail 11/09/23 11/10/23 11/10/23 10:06 06:14 06:14 MCV 78.3 L D MCH 25.2 L MCHC 32.1 RDW 21.1 H Plt Count 206 MPV 9.9 Absolute Nucleated RBC 0.060 H Nucleated RBC % (auto) 0.7 H Anion Gap 15 Estim Creat Clear Calc 13.3 Estimated GFR 9 Random Glucose 84 Estimat Average Glucose Hemoglobin A1c % Calcium 8.2 L D 8.1 L Phosphorus 6.1 H Iron 36 TIBC 318 % Saturation 11 L Unsat Iron Binding 282 Ferritin 14 25-OH Vitamin D Total 18.3 L PTH Intact 732.8 H Blood Type Antibody Screen Crossmatch Assessment and Plan (1) Acute on chronic anemia: Status: Acute (2) Severe anemia: Status: Acute (3) Dyspnea on exertion: Status: Acute (4) Symptomatic anemia: Status: Acute Plan A 58-year-old woman with stage 5 chronic kidney disease not on HD yet, along with uncontrolled hypertension, chronic systolic congestive heart failure (ejection fraction 40-45% as of December 2022), and chronic iron deficiency anemia here with symptomatic profound anemia. Symptomatic Anemia 2/2 chronic anemia and Acute Blood loss anemia (ABLA) Hb 7.9 after 4 units transfusion IV PPI GI consulted , hold until clearance by cardiology Follow H&H Cardiology consulted Transfuse as needed CKD 5 nearing HD but no urgent inciation for HD Nephrology consult, no need for HD at this stage Sodium Bicab for Metabolic acidosis Chronic systolic heart failure compensated HTN resume Coreg and Norvasc DVT Prophylaxis compression device Full code The patient will need 2 overnight hospital stay for management of symptomatic anemia Quality Stroke Does the patient have a stroke diagnosis?: No VTE Prior VTE?: No VTE Risk Level:: Medical - moderate - high VTE Device Contraindication: N/A - Device Ordered VTE Drug Contraindication: Treatment Not Tolerated
--- NOTE | 2023-11-10 10:54 | PM.CNCAR ---
History of Present Illness History of Present Illness Date of Service: 11/10/23 Requesting physician: Wili Schroeder Chief complaint: ABLA Narrative: 58-year-old female who is here for dizziness, dyspnea and chest discomfort. She has been noticed to be significantly anemic with hemoglobin of 4. She has noticed 2 episodes of bright red blood per rectum. She has chronic kidney disease and anemia of chronic disease in the background. She was transfused and is feeling better at this stage. She will need endoscopy and we have been asked to assess for perioperative cardiovascular risk assessment. She has known cardiomyopathy with EF of 40 45%. At home she was on amlodipine and carvedilol. [facility] Past Medical History Medical History CKD (chronic kidney disease) stage 5, GFR less than 15 ml/min Essential hypertension Normocytic anemia Family History Family History Father Throat cancer Mother Hypertension Daughter In good health Daughter In good health Sister In good health Family/Other Breast cancer Surgical History Surgical History History of surgery Status post dilation and curettage History of abdominal surgery History of extraction of renal calculus History of tubal ligation Social History Social History Household Members: Children Housing: Apartment Do you presently have visiting nurse or other home services: Yes (visiting nurse) Alcohol intake: never Patient Tobacco Use Status: Never used Tobacco Tobacco use type: Cigarette Years Smoked: 30 +/- e-Cigarette/Vaping Use: Never Used Second Hand Smoke Exposure: No service: No Current occupational status: unemployed Cognitive needs: No Hearing needs: No Vision needs: No Meds Allergies Allergy/AdvReac Type Severity Reaction Status Date / Time Penicillins Allergy Intermediate RASH Verified 07/05/23 14:05 Active Medications: Current Medications Acetaminophen (Acetaminophen 325 Mg Tablet) 650 mg PO Q6H PRN PRN Reason: Headache Last Admin: 11/09/23 23:29 Dose: 650 mg Amlodipine Besylate (Amlodipine Besylate 10 Mg Tablet) 10 mg PO DAILY [facility]; Protocol Last Admin: 11/10/23 09:31 Dose: 10 mg Carvedilol (Carvedilol 3.125 Mg Tablet) 3.125 mg PO BID [facility]; Protocol Last Admin: 11/10/23 09:31 Dose: 3.125 mg Pantoprazole Sodium (Pantoprazole Sodium 40 Mg/10 Ml Vial) 40 mg IVPUSH BID@0630,1630 [facility] Last Admin: 11/10/23 05:38 Dose: 40 mg Sodium Bicarbonate (Sodium Bicarbonate 650 Mg Tablet) 1,300 mg PO TID [facility] Last Admin: 11/10/23 09:31 Dose: 1,300 mg Sodium Chloride (0.9 % Sodium Chloride Flush 3 Ml Syringe) 3 ml IVFLUSH QSHIFT [facility] Last Admin: 11/10/23 08:49 Dose: 3 ml Physical Exam Vital Signs: Vital Signs: Last Vital Signs Temp 98.0 F 11/10/23 07:43 Pulse 100 11/10/23 07:43 Resp 18 11/10/23 07:43 BP 154/77 H 11/10/23 07:43 Pulse Ox 98 11/10/23 07:43 O2 Del Method Room Air 11/10/23 07:43 BMI result Body Mass Index 30.9 GENERAL APPEARANCE: in no acute distress, pleasant. NECK: no carotid bruit, no jugular venous distention. SKIN: no suspicious lesions, warm and dry. HEART: no murmurs, regular rate and rhythm. LUNGS: clear to auscultation bilaterally. ABDOMEN: soft, nontender. EXTREMITIES: no edema. PERIPHERAL PULSES: equal. NEUROLOGIC: No gross deficits, AAO X 3 Objective Labs and Meds 11/10/23 06:14 11/10/23 06:14 Lab results: Laboratory Results - last 24 hr 11/09/23 11/09/23 11/10/23 00:44 01:07 06:14 WBC 8.9 RBC 3.14 L D Hgb 7.9 L D Hct 24.6 L D MCV 78.3 L D MCH 25.2 L MCHC 32.1 RDW 21.1 H Plt Count 206 MPV 9.9 Absolute Nucleated RBC 0.060 H Nucleated RBC % (auto) 0.7 H Sodium 146 H Potassium 4.2 Chloride 121 H Carbon Dioxide 14 L Anion Gap 15 BUN 72 H Creatinine 5.07 H* Estim Creat Clear Calc 13.3 Estimated GFR 9 Random Glucose 84 Calcium 8.2 L D Phosphorus Ferritin 3 L 25-OH Vitamin D Total PTH Intact Blood Type A Positive Antibody Screen NEGATIVE Crossmatch See Detail 11/10/23 06:14 WBC RBC Hgb Hct MCV MCH MCHC RDW Plt Count MPV Absolute Nucleated RBC Nucleated RBC % (auto) Sodium Potassium Chloride Carbon Dioxide Anion Gap BUN Creatinine Estim Creat Clear Calc Estimated GFR Random Glucose Calcium 8.1 L Phosphorus 6.1 H Ferritin 14 25-OH Vitamin D Total 18.3 L PTH Intact 732.8 H Blood Type Antibody Screen Crossmatch Assessment and Plan (1) Symptomatic anemia: Status: Acute (2) Chronic systolic (congestive) heart failure: Status: Acute Plan Pleasant 58-year-old female who is presenting for shortness of breath, dizziness and chest discomfort in setting of significant anemia. She is background of anemia of chronic disease and also had some acute blood loss. She will need endoscopy. She is intermediate risk for perioperative cardiovascular complications. Symptoms have improved significantly with blood transfusion at this point. Last echo was in December 2022. She should have repeat echocardiography. Thank you for allowing me to participate in the care of your patient. Please feel free to contact me if you have any questions. Procedures Date of Service Date of Service: 11/10/23
[2023-11-10 16:09] VITALS: BP 130/65; PULSE 95; RESP 20; TEMP 36.1; O2SAT 99
[2023-11-10 19:37] VITALS: BP 136/74; PULSE 94; RESP 18; TEMP 36.3; O2SAT 97
[2023-11-11 03:28] VITALS: BP 126/65; PULSE 92; RESP 18; TEMP 36.3; O2SAT 95
[2023-11-11] MEDS: Pantoprazole Sodium 40 MG/10 ML VIAL IVPUSH ×2 (05:57→17:34)
[2023-11-11 06:26] LABS: Hematocrit 24.4 % (37.0-47.0); Hemoglobin 7.8 g/dl (12.0-16.0); Mean Corpuscular Hemoglobin 25.2 pg (27.0-33.0); Mean Platelet Volume 9.6 fL (9.4-12.3); NRBC Pct Auto 0.2 /100WBC (0.0-0.2); Platelet Count 193 X10*3/uL (160-400); Red Blood Count 3.09 X10*6/uL (4.20-5.50); Red Cell Distribution Width 21.5 % (11.0-16.0); White Blood Count 9.4 X10*3/uL (4.8-10.8)
[2023-11-11 06:49] LABS: Anion Gap 14 (12-20); Blood Urea Nitrogen 77 mg/dL (9-16); Carbon Dioxide 16 mmol/L (22-29); Chloride 116 mmol/L (96-108); Estimated Glomerular Filt Rate 8; Glucose Random 121 mg/dL (60-115); Potassium 4.4 mmol/L (3.3-5.1); Sodium 142 mmol/L (135-145)
[2023-11-11 07:41] VITALS: BP 130/64; PULSE 97; RESP 16; TEMP 37.2; O2SAT 98
[2023-11-11] MEDS: 0.9 % Sodium Chloride Flush 3 ML SYRINGE IVFLUSH ×3 (08:54→20:25)
[2023-11-11] MEDS: carvediloL 3.125 MG TABLET PO ×2 (08:54→20:25)
[2023-11-11] MEDS: Sodium Bicarbonate 650 MG TABLET 1300 MG PO ×3 (08:54→20:25)
[2023-11-11] MEDS: amLODIPine Besylate 10 MG TABLET PO (08:54)
--- NOTE | 2023-11-11 11:16 | HO.PM.IMPN ---
Subjective Subjective Date of Service: 11/11/23 Interval History: Seen and evaluated this morning Hb stable 7.8 this morning much less blood with stool Plan for EGD\colonoscopy tomorrow Review of Systems Review of Systems: Yes all other systems are reviewed and are negative Physical Exam Vital Signs: Vital Signs: Last Vital Signs Temp 98.9 F 11/11/23 07:41 Pulse 97 11/11/23 07:41 Resp 16 11/11/23 07:41 BP 130/64 11/11/23 07:41 Pulse Ox 98 11/11/23 07:41 O2 Del Method Room Air 11/11/23 07:41 BMI result Body Mass Index 30.9 Const: Other: Constitutional : Awake, interactive, not in distress Neck : Normal inspection, Supple Cardiovascular : RRR, no JVP, no lower extremity edema Respiratory : good bilateral air entry, no crackles, wheezes or rhonchi Gastrointestinal: soft, lax, Normal bowel sounds, Non tender Skin : Warm, Dry Neurological : Alert & oriented x3, No focal deficit Objective Data Active Medications Acetaminophen (Acetaminophen 325 Mg Tablet) 650 mg PO Q6H PRN PRN Reason: Headache Last Admin: 11/09/23 23:29 Dose: 650 mg Documented By: GIAN Amlodipine Besylate (Amlodipine Besylate 10 Mg Tablet) 10 mg PO DAILY [facility]; Protocol Last Admin: 11/11/23 08:54 Dose: 10 mg Documented By: PIEDAD Carvedilol (Carvedilol 3.125 Mg Tablet) 3.125 mg PO BID [facility]; Protocol Last Admin: 11/11/23 08:54 Dose: 3.125 mg Documented By: PIEDAD Pantoprazole Sodium (Pantoprazole Sodium 40 Mg/10 Ml Vial) 40 mg IVPUSH BID@0630,1630 [facility] Last Admin: 11/11/23 05:57 Dose: 40 mg Documented By: GIAN Sodium Bicarbonate (Sodium Bicarbonate 650 Mg Tablet) 1,300 mg PO TID [facility] Last Admin: 11/11/23 08:54 Dose: 1,300 mg Documented By: PIEDAD Sodium Chloride (0.9 % Sodium Chloride Flush 3 Ml Syringe) 3 ml IVFLUSH QSHIFT [facility] Last Admin: 11/11/23 08:54 Dose: 3 ml Documented By: PIEDAD Labs 11/11/23 05:55 11/11/23 05:55 Labs: Laboratory Results - last 24 hr 11/11/23 05:55 MCV 79.0 L MCH 25.2 L MCHC 32.0 RDW 21.5 H Plt Count 193 MPV 9.6 Absolute Nucleated RBC 0.020 H Nucleated RBC % (auto) 0.2 Anion Gap 14 Estim Creat Clear Calc 13.0 Estimated GFR 8 Random Glucose 121 H Calcium 8.0 L Assessment and Plan (1) Symptomatic anemia: Status: Acute (2) Acute on chronic anemia: Status: Acute (3) GI bleeding: Status: Acute Plan A 58-year-old woman with stage 5 chronic kidney disease not on HD yet, along with uncontrolled hypertension, chronic systolic congestive heart failure (ejection fraction 40-45% as of December 2022), and chronic iron deficiency anemia here with symptomatic profound anemia. Symptomatic Anemia 2/2 chronic anemia and Acute Blood loss anemia (ABLA) Hb 7.8 after 4 units transfusion IV PPI GI consulted , EGD and Colonoscopy tomorrow Follow H&H Cardiology cleared her for intervention Transfuse as needed Colon prep today NPO post midnight CKD 5 nearing HD but no urgent inciation for HD Nephrology consult, no need for HD at this stage Sodium Bicab for Metabolic acidosis Chronic systolic heart failure compensated HTN resume Coreg and Norvasc DVT Prophylaxis compression device Full code The patient will need overnight hospital stay for management of symptomatic anemia pending GI intervention and procedure Quality Stroke Does the patient have a stroke diagnosis?: No VTE Prior VTE?: No VTE Risk Level:: Medical - moderate - high VTE Device Contraindication: N/A - Device Ordered VTE Drug Contraindication: Treatment Not Tolerated
[2023-11-11 15:04] VITALS: BP 132/70; PULSE 95; RESP 18; TEMP 36.6; O2SAT 98
--- NOTE | 2023-11-11 15:05 | MHC.CM.PN ---
CM MET WITH PT WITH A TOBACCO SIZER PT REPORTS SHE LIVES WITH HER DAUGHTER SHE DOES NOT HAVE SERVICES OR DME YET, BUT SAYS SHE HAD AN EVAL LAST SUNDAY AND MAY GET A CREDIT ADMINISTRATION OFFICER PT DOES NOT HAVE A HCP, SHE ACCEPTED INFORMATION AND DOCUMENT TO DISCUSS WITH DAUGHTER WHEN SHE ARRIVES SHE IS AWARE CM CAN ASSIST IF SHE WANTS TO COMPLETE THE HCP PCP: [facility]MM DELIVERED DCP: HOME NO SERVICES DAUGHTER TO TRANSPORT
[2023-11-11] MEDS: PEG 3350/Na Sulf,Bicarb,Cl/KCL 4,000 ML SOLN.RECON 4000 ML PO (17:23)
[2023-11-11 19:27] VITALS: BP 133/79; PULSE 97; RESP 16; TEMP 36.9; O2SAT 97
[2023-11-11] MEDS: Acetaminophen 325 MG TABLET 650 MG PO (20:25)
[2023-11-11] MEDS: ondansetron HCL 4 MG/2 ML VIAL IVPUSH (20:25)
--- NOTE | 2023-11-11 22:57 | PC.NURSE ---
Patient completed Colonoscopy prep at 2130. 2200 patient complaint of bright red blood per rectum. This RN instructed patient to ring call hoffman and do not flush the next time so stool can be seen. Patient called this RN into room at 225 for another episode of bright red blood in the toilet. Large amount of bright red blood noted in the toilet. Dr. Sloan made aware. Order for STAT H&H.
[2023-11-12] VITALS (11 sets, daily range): BP systolic 109–145; BP diastolic 68–84; PULSE 77–90; RESP 14–20; TEMP 36.2–36.8; O2SAT 6–99
[2023-11-12 00:14] LABS: Hematocrit 24.3 % (37.0-47.0); Hemoglobin 7.8 g/dl (12.0-16.0)
[2023-11-12] MEDS: Pantoprazole Sodium 40 MG/10 ML VIAL IVPUSH (05:33)
[2023-11-12 05:46] LABS: Hematocrit 22.5 % (37.0-47.0); Hemoglobin 7.3 g/dl (12.0-16.0); Mean Corpuscular HGB Conc 32.4 g/dl (31.0-35.0); Mean Corpuscular Hemoglobin 25.3 pg (27.0-33.0); Mean Corpuscular Volume 77.9 fL (80.0-98.0); Mean Platelet Volume 9.4 fL (9.4-12.3); Platelet Count 179 X10*3/uL (160-400); Red Blood Count 2.89 X10*6/uL (4.20-5.50); Red Cell Distribution Width 21.4 % (11.0-16.0); White Blood Count 8.1 X10*3/uL (4.8-10.8)
[2023-11-12 06:04] LABS: Anion Gap 17 (12-20); Blood Urea Nitrogen 87 mg/dL (9-16); Carbon Dioxide 17 mmol/L (22-29); Chloride 115 mmol/L (96-108); Creatinine Clr Calc Pharmacy 12.8; Estimated Glomerular Filt Rate 8; Glucose Random 83 mg/dL (60-115); Potassium 4.6 mmol/L (3.3-5.1); Sodium 144 mmol/L (135-145)
--- NOTE | 2023-11-12 07:00 | CA_ITS ---
Transthoracic Echocardiogram Patient (Last, First, Middle): Anh Grace, Gender: Female Date of : 1965 Age: 58 Procedure Date: 11/12/2023 Procedure Type: Transthoracic Echocardiogram Location: S3E Height: 160.02 cm Weight: 81.65 kg BSA: 1.85 m2 Heart Rate: bpm BP: 122 / 60 mmHg Application Operations Engineer: Referring MD: Nirav Zamudio MD Vice President Process: Miko Quan MD Symptoms: cardiomyopathy Study Quality: Adequate ECG Rhythm: Sinus Conclusions: - 1. [id number] LV systolic dysfunction with LVEF of 40 45% with mild LVH with impaired relaxation filling pattern 2. Mildly dilated left atrium 3. Mild mitral regurgitation 4. No gross pericardial effusion Findings Left Ventricle Normal left ventricular cavity size. There is mildly increased left ventricular wall thickness. The left ventricular systolic function is mild to moderately decreased. The visually estimated ejection fraction is between 40-45%. Spectral Doppler is indicative of an impaired relaxation filling pattern. E/E prime ratio is between 8 and 15 consistent with indeterminate filling pressures. Right Ventricle Normal right ventricular cavity size and systolic function. Atria The left atrium is mildly dilated. There is no evidence of interatrial shunt. The right atrium is normal in size. Aortic Valve Normal aortic valve structure and function. There is no aortic valve stenosis. There is no aortic valve regurgitation. Mitral Valve Normal mitral valve structure and function. There is mild mitral valve regurgitation. There is no mitral valve stenosis. Pulmonic Valve The pulmonic valve is likely normal. Tricuspid Valve Normal tricuspid valve structure. Tricuspid regurgitation envelope is inadequate for calculation of right ventricular systolic pressure. Normal right atrial pressure. Great Vessels The pulmonary artery was not well visualized. There is no dilatation of the ascending aorta measuring 3.40 cm. Venous The inferior vena cava is normal in size and collapses greater than 50% with inspiration. Pericardium/Pleural There is no evidence of pericardial effusion. Prior Study Comparison Changes noted compared to prior study dated: 12/14/2022. mild mitral regurgitation is noted Measurements 2D Linear Measurements IVSd: 1.21 0.6-0.9/0.6-1.0 cm LVIDd: 5.98 3.9-5.3/4.2-5.9 cm LVIDd Index: 3.23 2.4-3.2/2.2-3.1 cm/m2 LVIDs: 4.00 2.0-3.6 cm LVPWd: 1.24 0.7-1.1 cm Ao Root: 3.00 2.1-3.5 cm LA Diam: 3.50 2.7-3.8/3.0-4.0 cm LAIDs Index: 1.89 1.5-2.3 cm/m2 LV Mass: 400.64 67-162/88-224 g LV Mass Index: 216.56 43-95/49-115 g/m2 LVOT Diam: 2.20 3.0+(-)1.3 cm 2D Systolic Function EF 4C: 51.60 >55% EF 2C: 38.80 >55% EF BiP: 44.50 >55% Mitral Valve MV Pk E: 0.71 MV PK A: 0.91 MV Decel Time: 139.00 E/A: 0.80 E'Lateral: 5.44 E'Medial: 6.42 E/E' Med: 11.00 E/E' Lat: 13.00 PHT: 41.00 MVA PHT: 5.37 Decel [place]: 5.09 Aortic Valve AoV Pk Bang: 1.58 AoV Mn Bang: 1.00 AoV VTI: 0.37 AoV Pk Grad: 10.00 Aov Mn Grad: 5.00 OMAR Cont.VTI: 2.24 LVOT LVOT Pk Bang: 0.93 LVOT Mn Bang: 0.62 LVOT VTI: 0.22 LVOT Pk Grad: 3.00 LVOT Mn Grad: 2.00 LVOT Diam: 2.20 LVOT Area: 3.80 Diastolic Function MV Pk E: 0.71 MV Pk A: 0.91 E/A: 0.80 E'Medial: 6.42 E/E' Med: 11.00 E' Laterial: 5.44 E/E' Lat: 13.00 Right Ventricle TAPSE (mm): 23.80 TVS' Bang: 10.70 Tricuspid Valve TR Pk Bang: 1.74 TR Pk Grad: 12.00 Great Vessels Aorta Ao Root-2D: 3.00 2.0-3.7 cm Ao Asc: 3.40 2.1-3.4 cm Pulmonary Valve PV Pk Bang: 1.17 Peak PV Grad: 5.00 Updated in Other Vendor System with Status of Final Miko Quan MD electronically signed on 11/12/2023 12:41:35 PM with status of Final
[2023-11-12] MEDS: Sodium Bicarbonate 650 MG TABLET 1300 MG PO ×3 (08:35→20:10)
[2023-11-12] MEDS: carvediloL 3.125 MG TABLET PO ×2 (08:35→20:10)
[2023-11-12] MEDS: 0.9 % Sodium Chloride Flush 3 ML SYRINGE IVFLUSH ×3 (08:36→20:10)
[2023-11-12 09:23] LABS: Transferrin 273 mg/dL (188-341)
--- NOTE | 2023-11-12 09:31 | P.PNIM_ITS ---
Subjective Subjective Date of Service: 11/12/23 Interval History: Seen and evaluated this morning Hb dropped to 7.3 this morning reported blood with stool Plan for EGD\colonoscopy today Review of Systems Review of Systems: Yes all other systems are reviewed and are negative Physical Exam 2 Vital Signs: Vital Signs: Last Vital Signs Temp 98.3 F 11/12/23 07:33 Pulse 85 11/12/23 07:33 Resp 18 11/12/23 07:33 BP 129/68 11/12/23 07:33 Pulse Ox 97 11/12/23 07:33 O2 Del Method Room Air 11/12/23 07:33 BMI result Body Mass Index 30.9 Const: Other: Constitutional : Awake, interactive, not in distress Neck : Normal inspection, Supple Cardiovascular : RRR, no JVP, no lower extremity edema Respiratory : good bilateral air entry, no crackles, wheezes or rhonchi Gastrointestinal: soft, lax, Normal bowel sounds, Non tender Skin : Warm, Dry Neurological : Alert & oriented x3, No focal deficit Objective Data Active Medications Acetaminophen (Acetaminophen 325 Mg Tablet) 650 mg PO Q6H PRN PRN Reason: Headache Last Admin: 11/11/23 20:25 Dose: 650 mg Documented By: NADEEM Amlodipine Besylate (Amlodipine Besylate 10 Mg Tablet) 10 mg PO DAILY [facility]; Protocol Last Admin: 11/12/23 08:38 Dose: Not Given Documented By: ANGELA Non-Admin Reason: Physician Held Med Carvedilol (Carvedilol 3.125 Mg Tablet) 3.125 mg PO BID [facility]; Protocol Last Admin: 11/12/23 08:35 Dose: 3.125 mg Documented By: ANGELA Ondansetron HCl (Ondansetron Hcl 4 Mg/2 Ml Vial) 4 mg IVPUSH Q4H PRN PRN Reason: Nausea and Vomiting Last Admin: 11/11/23 20:25 Dose: 4 mg Documented By: COTEMA Pantoprazole Sodium (Pantoprazole Sodium 40 Mg/10 Ml Vial) 40 mg IVPUSH BID@0630,1630 [facility] Last Admin: 11/12/23 05:33 Dose: 40 mg Documented By: COTEMA Sodium Bicarbonate (Sodium Bicarbonate 650 Mg Tablet) 1,300 mg PO TID [facility] Last Admin: 11/12/23 08:35 Dose: 1,300 mg Documented By: ANGELA Sodium Chloride (0.9 % Sodium Chloride Flush 3 Ml Syringe) 3 ml IVFLUSH QSHIFT [facility] Last Admin: 11/12/23 08:36 Dose: 3 ml Documented By: ANGELA Labs 11/12/23 05:35 11/12/23 05:35 Labs: Laboratory Results - last 24 hr 11/10/23 11/12/23 11/12/23 06:14 05:35 09:04 MCV 77.9 L MCH 25.3 L MCHC 32.4 RDW 21.4 H Plt Count 179 MPV 9.4 Absolute Nucleated RBC 0.000 Nucleated RBC % (auto) 0.0 Anion Gap 17 Estim Creat Clear Calc 12.8 Estimated GFR 8 Random Glucose 83 Calcium 8.0 L Transferrin 273 Blood Type A Positive Crossmatch See Detail Assessment and Plan (1) GI bleeding: Status: Acute (2) Symptomatic anemia: Status: Acute (3) Acute on chronic anemia: Status: Acute Plan A 58-year-old woman with stage 5 chronic kidney disease not on HD yet, along with uncontrolled hypertension, chronic systolic congestive heart failure (ejection fraction 40-45% as of December 2022), and chronic iron deficiency anemia here with symptomatic profound anemia. Symptomatic Anemia 2/2 chronic anemia and Acute Blood loss anemia (ABLA) Hb 7.3 this morning To give extra 1 unit, total 5 units transfusion IV PPI GI consulted , EGD and Colonoscopy today Follow H&H Cardiology cleared her for intervention Transfuse as needed Colon prep today NPO for now CKD 5 nearing HD but no urgent inciation for HD Nephrology consult, no need for HD at this stage Sodium Bicab for Metabolic acidosis Chronic systolic heart failure compensated HTN resume Coreg and Norvasc DVT Prophylaxis compression device Full code The patient will need overnight hospital stay for management of symptomatic anemia pending GI intervention and procedure Quality Stroke Does the patient have a stroke diagnosis?: No VTE Prior VTE?: No VTE Risk Level:: Medical - moderate - high VTE Device Contraindication: N/A - Device Ordered VTE Drug Contraindication: Treatment Not Tolerated
--- NOTE | 2023-11-12 10:13 | PM.CNNEP ---
History of Present Illness Reason for Consult Consult date: 11/12/23 Reason for consult: CKD Chief Complaint Chief complaint: ABLA History of Present Illness Narrative: 58-year-old woman with stage 5 chronic kidney disease without hemodialysis initiation yet, along with uncontrolled hypertension, chronic systolic congestive heart failure (ejection fraction 40-45% as of December 2022), and chronic iron deficiency anemia. Despite medical recommendations, she has declined colonoscopy and is non-adherent to medications and follow-up appointments. Presenting symptoms include weakness, shortness of breath, and chest pain reported yesterday. She denies melena. Emergency department findings reveal a hemoglobin level of 4.2 and hematocrit of 14, with negative occult blood and troponin tests. The ECG shows no acute ischemic changes. Creatinine levels are elevated at 5.76, and CO2 levels are low at 13. Review of Systems Constitutional: Denies fever(s) and Denies weight loss Cardiovascular: Denies chest pain Respiratory: Denies cough and Denies hemoptysis Gastrointestinal: Denies abdominal pain, Denies diarrhea and Denies nausea Musculoskeletal: Denies back pain Denies focal weakness PMFSH Past Medical History Medical History CKD (chronic kidney disease) stage 5, GFR less than 15 ml/min Essential hypertension Normocytic anemia Family History Family History Father Throat cancer Mother Hypertension Daughter In good health Daughter In good health Sister In good health Family/Other Breast cancer Surgical History Surgical History History of surgery Status post dilation and curettage History of abdominal surgery History of extraction of renal calculus History of tubal ligation Social History Social History Household Members: Children Housing: Apartment Do you presently have visiting nurse or other home services: Yes (visiting nurse) Alcohol intake: never Patient Tobacco Use Status: Never used Tobacco Tobacco use type: Cigarette Years Smoked: 30 +/- e-Cigarette/Vaping Use: Never Used Second Hand Smoke Exposure: No service: No Current occupational status: unemployed Cognitive needs: No Hearing needs: No Vision needs: No Meds Allergies Allergy/AdvReac Type Severity Reaction Status Date / Time Penicillins Allergy Intermediate RASH Verified 07/05/23 14:05 Active Medications: Current Medications Acetaminophen (Acetaminophen 325 Mg Tablet) 650 mg PO Q6H PRN PRN Reason: Headache Last Admin: 11/11/23 20:25 Dose: 650 mg Amlodipine Besylate (Amlodipine Besylate 10 Mg Tablet) 10 mg PO DAILY [facility]; Protocol Last Admin: 11/12/23 08:38 Dose: Not Given Carvedilol (Carvedilol 3.125 Mg Tablet) 3.125 mg PO BID [facility]; Protocol Last Admin: 11/12/23 08:35 Dose: 3.125 mg Ondansetron HCl (Ondansetron Hcl 4 Mg/2 Ml Vial) 4 mg IVPUSH Q4H PRN PRN Reason: Nausea and Vomiting Last Admin: 11/11/23 20:25 Dose: 4 mg Sodium Bicarbonate (Sodium Bicarbonate 650 Mg Tablet) 1,300 mg PO TID [facility] Last Admin: 11/12/23 08:35 Dose: 1,300 mg Sodium Chloride (0.9 % Sodium Chloride Flush 3 Ml Syringe) 3 ml IVFLUSH QSHIFT [facility] Last Admin: 11/12/23 08:36 Dose: 3 ml Physical Exam Vital Signs: Last Vital Signs Temp 98.3 F 11/12/23 07:33 Pulse 85 11/12/23 07:33 Resp 18 11/12/23 07:33 BP 129/68 11/12/23 07:33 Pulse Ox 97 11/12/23 07:33 O2 Del Method Room Air 11/12/23 07:33 BMI result Body Mass Index 30.9 Awake. Comfortable. Neck is supple. Mucosa moist. Lungs bilateral scattered rhonchi. Heart S1-S2 heard no gallop. Abdomen soft. Extremities no edema. No involuntary movements. No myoclonus. Results Lab Results 11/12/23 05:35 11/12/23 05:35 Lab results: Chemistry 11/10/23 11/10/23 11/11/23 06:14 06:14 05:55 Sodium 146 H 142 Potassium 4.2 4.4 Carbon Dioxide 14 L 16 L BUN 72 H 77 H Creatinine 5.07 H* 5.23 H* Calcium 8.2 L D 8.1 L 8.0 L Phosphorus 6.1 H 11/12/23 05:35 Sodium 144 Potassium 4.6 Carbon Dioxide 17 L BUN 87 H Creatinine 5.27 H* Calcium 8.0 L Phosphorus Hematology 11/10/23 11/11/23 11/11/23 06:14 05:55 23:15 WBC 8.9 9.4 Hgb 7.9 L D 7.8 L 7.8 L Plt Count 206 193 11/12/23 05:35 WBC 8.1 Hgb 7.3 L Plt Count 179 Assessment and Plan (1) Acute on chronic anemia: Status: Acute (2) CKD (chronic kidney disease) stage 5, GFR less than 15 ml/min: Status: Acute Plan 58-year-old woman with advanced renal failure approaching end stage renal disease. Renal functions close to baseline. No overt signs or symptoms of uremia or fluid overload. No absolute indication for dialysis yet. Severe anemia. Primarily due to acute blood loss. She probably also has underlying erythropoietin deficiency due to advanced CKD. Await workup for GI bleed. Transfuse as needed. Replace iron. Venofer 200 mg IV daily times 3 doses p.o. bicarbonate to correct acidosis Procedures Date of Service Date of Service: 11/12/23
[2023-11-12] MEDS: Acetaminophen 325 MG TABLET 650 MG PO (10:35)
--- NOTE | 2023-11-12 11:35 | MHC.CM.PN ---
Per MD rounds patient is not medically cleared for dc. EGD planned for this afternoon. Plan remains home w/ family support.
--- NOTE | 2023-11-12 13:49 | PC.NURSE ---
Patient in preop. Per [place] in the blood bank, if blood is needed during procedure or postop, it will be ready immediately. Dr. Dobbs made aware.
--- NOTE | 2023-11-12 13:51 | PC.NURSE ---
Km arrived to preop with two PRN angio IVs, #20 L AC, # 20 R AC. Both sites covered in dry crusty blood. Right AC site cleaned and new dressing applied, flushed well with no issues. Left AC site cleaned, site leaking, line removed. New IV placed, #20 R hand, tolerated well.
--- NOTE | 2023-11-12 14:01 | P.CONAN_ITS ---
HPI - Anesthesia Eval Consult details Narrative: for colonoscopy, endo for Gi bleed. [facility] Active Problems Active Problems: All Active Problems (Updated 11/11/23 @ 11:20 by Wili Schroeder MD) GI bleeding (Acute) Symptomatic anemia (Acute) Acute on chronic anemia (Acute) Anemia (Acute) CKD (chronic kidney disease) (Acute) Dyspnea on exertion (Acute) Severe anemia (Acute) Chronic systolic (congestive) heart failure (Acute) Screening for cervical cancer (Acute) Physical exam (Acute) Weight loss (Acute) Dysphagia (Acute) Rash (Acute) Obesity (BMI 30-39.9) (Acute) Adult general medical exam (Acute) Colonoscopy refused (Acute) Asthma (Acute) Abdominal hernia (Acute) Screening for breast cancer (Acute) Edema (Acute) Cardiomyopathy (Acute) CKD (chronic kidney disease) stage 5, GFR less than 15 ml/min (Acute) Essential hypertension (Acute) Normocytic anemia (Acute) Past Medical History Medical History CKD (chronic kidney disease) stage 5, GFR less than 15 ml/min Essential hypertension Normocytic anemia Family History Family History Father Throat cancer Mother Hypertension Daughter In good health Daughter In good health Sister In good health Family/Other Breast cancer Family history of problems with anesthesia: No Surgical History Surgical History History of surgery Status post dilation and curettage History of abdominal surgery History of extraction of renal calculus History of tubal ligation History of Problems with Anesthesia: No Social History Social History Household Members: Children Housing: Apartment Do you presently have visiting nurse or other home services: Yes (visiting nurse) Alcohol intake: never Patient Tobacco Use Status: Never used Tobacco Tobacco use type: Cigarette Years Smoked: 30 +/- e-Cigarette/Vaping Use: Never Used Second Hand Smoke Exposure: No service: No Current occupational status: unemployed Cognitive needs: No Hearing needs: No Vision needs: No Meds Allergies Allergy/AdvReac Type Severity Reaction Status Date / Time Penicillins Allergy Intermediate RASH Verified 11/12/23 13:14 Active Medications: Current Medications Acetaminophen (Acetaminophen 325 Mg Tablet) 650 mg PO Q6H PRN PRN Reason: Headache Last Admin: 11/12/23 10:35 Dose: 650 mg Amlodipine Besylate (Amlodipine Besylate 10 Mg Tablet) 10 mg PO DAILY [facility]; Protocol Last Admin: 11/12/23 08:38 Dose: Not Given Carvedilol (Carvedilol 3.125 Mg Tablet) 3.125 mg PO BID [facility]; Protocol Last Admin: 11/12/23 08:35 Dose: 3.125 mg Ondansetron HCl (Ondansetron Hcl 4 Mg/2 Ml Vial) 4 mg IVPUSH Q4H PRN PRN Reason: Nausea and Vomiting Last Admin: 11/11/23 20:25 Dose: 4 mg Sodium Bicarbonate (Sodium Bicarbonate 650 Mg Tablet) 1,300 mg PO TID [facility] Last Admin: 11/12/23 08:35 Dose: 1,300 mg Sodium Chloride (0.9 % Sodium Chloride Flush 3 Ml Syringe) 3 ml IVFLUSH QSHIFT [facility] Last Admin: 11/12/23 08:36 Dose: 3 ml Exam Height,Weight and Vital Signs: Height 5 ft 6 in Weight 86.8 kg Last Vital Signs Temp 98.0 F 11/12/23 13:23 Pulse 86 11/12/23 13:23 Resp 16 11/12/23 13:23 BP 145/81 H 11/12/23 13:23 Pulse Ox 97 11/12/23 13:23 O2 Del Method Room Air 11/12/23 13:23 Pertinent Lab Results Pertinent Lab Results: Laboratory Tests 11/09/23 11/09/23 11/09/23 00:44 01:07 01:36 WBC 10.2 10.3 RBC 1.48 L D 1.47 L Hgb 2.8 L* D 2.8 L* Hct 10.3 L* D 10.3 L* MCV 69.6 L 70.1 L MCH 18.9 L 19.0 L MCHC 27.2 L 27.2 L RDW 20.3 H 20.0 H Plt Count 253 252 MPV 9.9 10.0 Immature Gran % (Auto) 1.2 H Neut % (Auto) 62.3 Lymph % (Auto) 28.7 Gilchrist % (Auto) 6.3 Eos % (Auto) 1.5 Baso % (Auto) 0.0 Lymph # (Auto) 2.9 Gilchrist # (Auto) 0.6 Eos # (Auto) 0.2 Baso # (Auto) 0.0 Abs Immat Gran (auto) 0.12 H Absolute Neuts (auto) 6.3 Absolute Nucleated RBC 0.090 H 0.070 H Nucleated RBC % (auto) 0.9 H 0.7 H Smear Path Review Sodium 142 Potassium 4.4 Chloride 117 H Carbon Dioxide 13 L Anion Gap 16 BUN 74 H Creatinine 5.76 H* Estim Creat Clear Calc 11.7 Estimated GFR 8 Random Glucose 98 Estimat Average Glucose Hemoglobin A1c % Calcium 7.7 L D Phosphorus Iron 9 L TIBC 305 % Saturation 3 L Unsat Iron Binding 296 Transferrin Ferritin 3 L Total Bilirubin 0.2 Direct Bilirubin < 0.2 AST 9 ALT 7 Alkaline Phosphatase 77 Lactate Dehydrogenase 168 Troponin I High Sens 8.4 Total Protein 6.6 Albumin 3.4 L Vitamin B12 534 25-OH Vitamin D Total Folate 9.6 PTH Intact Urine Color Urine Appearance Urine pH Ur Specific [place] Urine Protein Urine Glucose (UA) Urine Ketones Urine Blood Urine Nitrite Ur Leukocyte Esterase Urine RBC Urine WBC Ur Squamous Epith Cells Urine Bacteria Hyaline Casts Stool Occult Blood Influenza Type A (PCR) NEGATIVE Influenza Type B (PCR) NEGATIVE RSV RNA Qual (PCR) NEGATIVE SARS-CoV-2 RNA (RT-PCR) NEGATIVE Blood Type A Positive Antibody Screen NEGATIVE Crossmatch See Detail 11/09/23 11/09/23 11/09/23 03:04 05:49 10:06 WBC 10.0 RBC 2.03 L D Hgb 4.2 L* D Hct 14.6 L* D MCV 71.9 L MCH 20.7 L MCHC 28.8 L RDW 19.7 H Plt Count 240 MPV 9.5 Immature Gran % (Auto) Neut % (Auto) Lymph % (Auto) Gilchrist % (Auto) Eos % (Auto) Baso % (Auto) Lymph # (Auto) Gilchrist # (Auto) Eos # (Auto) Baso # (Auto) Abs Immat Gran (auto) Absolute Neuts (auto) Absolute Nucleated RBC 0.100 H Nucleated RBC % (auto) 1.0 H Smear Path Review Sodium Potassium Chloride Carbon Dioxide Anion Gap BUN Creatinine Estim Creat Clear Calc Estimated GFR Random Glucose Estimat Average Glucose TNP Hemoglobin A1c % TNP Calcium Phosphorus Iron 36 TIBC 318 % Saturation 11 L Unsat Iron Binding 282 Transferrin Ferritin Total Bilirubin Direct Bilirubin AST ALT Alkaline Phosphatase Lactate Dehydrogenase Troponin I High Sens Total Protein Albumin Vitamin B12 25-OH Vitamin D Total Folate PTH Intact Urine Color Yellow Urine Appearance Clear Urine pH 6.0 Ur Specific [place] 1.010 Urine Protein 100 (2+) H Urine Glucose (UA) Negative Urine Ketones Negative Urine Blood Trace H Urine Nitrite Negative Ur Leukocyte Esterase Negative Urine RBC 0-2 Urine WBC 0-5 Ur Squamous Epith Cells 0-2 Urine Bacteria None Seen Hyaline Casts 0-2 Stool Occult Blood NEGATIVE Influenza Type A (PCR) Influenza Type B (PCR) RSV RNA Qual (PCR) SARS-CoV-2 RNA (RT-PCR) Blood Type Antibody Screen Crossmatch 11/10/23 11/10/23 11/11/23 06:14 06:14 05:55 WBC 8.9 9.4 RBC 3.14 L D 3.09 L Hgb 7.9 L D 7.8 L Hct 24.6 L D 24.4 L MCV 78.3 L D 79.0 L MCH 25.2 L 25.2 L MCHC 32.1 32.0 RDW 21.1 H 21.5 H Plt Count 206 193 MPV 9.9 9.6 Immature Gran % (Auto) Neut % (Auto) Lymph % (Auto) [place] % (Auto) Eos % (Auto) Baso % (Auto) Lymph # (Auto) [place] # (Auto) Eos # (Auto) Baso # (Auto) Abs Immat Gran (auto) Absolute Neuts (auto) Absolute Nucleated RBC 0.060 H 0.020 H Nucleated RBC % (auto) 0.7 H 0.2 Smear Path Review Sodium 146 H 142 Potassium 4.2 4.4 Chloride 121 H 116 H Carbon Dioxide 14 L 16 L Anion Gap 15 14 BUN 72 H 77 H Creatinine 5.07 H* 5.23 H* Estim Creat Clear Calc 13.3 13.0 Estimated GFR 9 8 Random Glucose 84 121 H Estimat Average Glucose Hemoglobin A1c % Calcium 8.2 L D 8.1 L 8.0 L Phosphorus 6.1 H Iron TIBC % Saturation Unsat Iron Binding Transferrin 273 Ferritin 14 Total Bilirubin Direct Bilirubin AST ALT Alkaline Phosphatase Lactate Dehydrogenase Troponin I High Sens Total Protein Albumin Vitamin B12 25-OH Vitamin D Total 18.3 L Folate PTH Intact 732.8 H Urine Color Urine Appearance Urine pH Ur Specific [place] Urine Protein Urine Glucose (UA) Urine Ketones Urine Blood Urine Nitrite Ur Leukocyte Esterase Urine RBC Urine WBC Ur Squamous Epith Cells Urine Bacteria Hyaline Casts Stool Occult Blood Influenza Type A (PCR) Influenza Type B (PCR) RSV RNA Qual (PCR) SARS-CoV-2 RNA (RT-PCR) Blood Type Antibody Screen Crossmatch 11/11/23 11/12/23 11/12/23 23:15 05:35 09:04 WBC 8.1 RBC 2.89 L Hgb 7.8 L 7.3 L Hct 24.3 L 22.5 L MCV 77.9 L MCH 25.3 L MCHC 32.4 RDW 21.4 H Plt Count 179 MPV 9.4 Immature Gran % (Auto) Neut % (Auto) Lymph % (Auto) [place] % (Auto) Eos % (Auto) Baso % (Auto) Lymph # (Auto) [place] # (Auto) Eos # (Auto) Baso # (Auto) Abs Immat Gran (auto) Absolute Neuts (auto) Absolute Nucleated RBC 0.000 Nucleated RBC % (auto) 0.0 Smear Path Review Sodium 144 Potassium 4.6 Chloride 115 H Carbon Dioxide 17 L Anion Gap 17 BUN 87 H Creatinine 5.27 H* Estim Creat Clear Calc 12.8 Estimated GFR 8 Random Glucose 83 Estimat Average Glucose Hemoglobin A1c % Calcium 8.0 L Phosphorus Iron TIBC % Saturation Unsat Iron Binding Transferrin Ferritin Total Bilirubin Direct Bilirubin AST ALT Alkaline Phosphatase Lactate Dehydrogenase Troponin I High Sens Total Protein Albumin Vitamin B12 25-OH Vitamin D Total Folate PTH Intact Urine Color Urine Appearance Urine pH Ur Specific [place] Urine Protein Urine Glucose (UA) Urine Ketones Urine Blood Urine Nitrite Ur Leukocyte Esterase Urine RBC Urine WBC Ur Squamous Epith Cells Urine Bacteria Hyaline Casts Stool Occult Blood Influenza Type A (PCR) Influenza Type B (PCR) RSV RNA Qual (PCR) SARS-CoV-2 RNA (RT-PCR) Blood Type A Positive Antibody Screen NEGATIVE Crossmatch See Detail Airway Mallampati Class: II TM Dist: >3cm Neck ROM: Limited Heart: rrr Lungs: cta Assessment and Plan Assessment Anesthesia Assessment: Anesthesia Plan Discussed and Chart Reviewed Final Anesthetic Review Family History of Problems with Anesthesia: No History of Problems with Anesthesia: No NPO: Yes ASA Class: III and Emergency Final Preanesthetic Review: No Changes in Pt Med Stat, Meds/Allgs Chart Reviewed, Consent Obtained/Reviewed and Anes Risks/Benef Reviewed Patient Risk: Intermediate Procedure Risk: Low Anesthetic Plan Anesthetic Plan: GA and MAC: Disposition: Standard PACU
--- NOTE | 2023-11-12 14:16 | MHC.SHP ---
Pre-Procedural Eval Section A - 24 Hr Update-Section A only Date of Service: 11/12/23 The patient is an INPATIENT: Yes The patient has been examined within 24 hours of the surgical procedure. The History & Physical has been completed within 30 days and I have reviewed it.: Yes Section B - Complete if H&P > 30 days Chief Complaint: ABLA Allergies: Allergies Allergy/AdvReac Type Severity Reaction Status Date / Time Penicillins Allergy Intermediate RASH Verified 11/12/23 13:14 Plan Diagnosis/Plan: Unchanged I have reviewed the history and physical and performed a pertinent physical examination on my patient. No changes have occurred unless specified. Time Spent With Patient Time: Total time managing care of this patient today ____ minutes.
--- NOTE | 2023-11-12 15:08 | P.OP_ITS ---
Operative Note Operative Note Date of Service: 11/12/23 Narrative: Procedure: Upper endoscopy and colonoscopy Indication: Profound anemia Endoscopist: Miranda Singh MD Anesthesia Provider: Dr Hilda Dobbs Anesthesia type: MAC Instrument: Olympus [id number] Colonoscopy Procedure: The procedure, indications, preparation and potential complications were reviewed with the patient, who indicated understanding and gave written informed consent to proceed. Ground Mixer assisted with this procedure. A physical exam was performed. A digital rectal exam was performed which was abnormal for bleeding external hemorrhoids. A distal attachment cap was affixed to the tip of the scope and the colonoscope was then inserted through the anus and advanced through the colon to the hepatic flexure at 80 cm. Mucosa was carefully examined under high definition white light as the instrument was slowly withdrawn in a retrograde panoramic fashion. Retroflexion was performed in rectum. The procedure was not difficult. There were no immediate obvious complications. The quality of the prep was BBPS: N/A+0+1 = inadequate Withdrawal time N/A Limitations: Poor prep. Colonoscopy Findings: Mucosa: Semi solid and liquid stool was seen throughout the colon worse in R colon (mostly solid stool). Dark blood with clots was noted in rectum up to 20 cm. Protruding lesions: * At least 3 columns of large internal hemorrhoids were noted which were spontaneously oozing. ?? EGD Procedure:?? The patient was then turned for the upper endoscopy. The endoscope was introduced through the mouth, and advanced to the proximal jejunum. The mucosa was carefully examined on slow withdrawal of the endoscope. The patient tolerated the procedure well. There were no immediate complications.? ? EGD Findings:? * Esophagus:? Small linear ulcerations measuring less than 1 cm were noted the GE junction. The Z line was at 40 cm and irregular with the longest salmon colored tongue extending to 38 cm and a small 5 mm island at 37 cm. Cold forceps biopsies were taken to rule out Cisse's esophagus. These will be sent for tissue cypher if dysplasia confirmed on pathology. Large hiatal hernia was noted with a diaphragmatic pinch 48 cm. * Stomach:? Normal mucosa was noted in the stomach. Retroflexion in the cardia showed grade Hill 3 hiatal hernia. * Duodenum:? Normal mucosa was noted in the whole of the examined duodenum. Cold forceps biopsies were taken to rule out celiac sprue. Impressions:? * Irregular Z line r/o BE (biopsy, tissue cypher) * Grade A esophagitis * Hiatal hernia * Normal gastric mucosa * Normal duodenum (biopsy) * Poor prep * Blood in rectum * Bleeding external and internal hemorrhoids Recommendations: - Blood in rectum likely refluxed from internal hemorrhoids - Start anusol suppository, sitz baths - Avoid constipation/straining - Consider surgical evaluation if bleeding persists despite the above - Follow path results - Start omeprazole 20mg PO once daily for esophagitis - Poor prep colo not adequate for polyp screening - Pt will need a completion colo within 6 months
[2023-11-13 03:04] VITALS: BP 129/72; PULSE 90; RESP 18; TEMP 36.3; O2SAT 96
[2023-11-13 06:52] VITALS: BP 139/80; PULSE 90; RESP 16; TEMP 36.6; O2SAT 99
[2023-11-13 07:05] LABS: Hematocrit 26.1 % (37.0-47.0); Hemoglobin 8.4 g/dl (12.0-16.0); Mean Corpuscular HGB Conc 32.2 g/dl (31.0-35.0); Mean Corpuscular Hemoglobin 25.5 pg (27.0-33.0); Mean Corpuscular Volume 79.3 fL (80.0-98.0); Mean Platelet Volume 9.8 fL (9.4-12.3); Platelet Count 178 X10*3/uL (160-400); Red Blood Count 3.29 X10*6/uL (4.20-5.50); Red Cell Distribution Width 21.2 % (11.0-16.0); White Blood Count 8.1 X10*3/uL (4.8-10.8)
[2023-11-13 07:27] LABS: Anion Gap 17 (12-20); Blood Urea Nitrogen 80 mg/dL (9-16); Calcium 8.2 mg/dL (8.4-10.2); Carbon Dioxide 18 mmol/L (22-29); Chloride 114 mmol/L (96-108); Creatinine Clr Calc Pharmacy 14.1; Estimated Glomerular Filt Rate 9; Glucose Random 82 mg/dL (60-115); Sodium 144 mmol/L (135-145)
[2023-11-13] MEDS: Sodium Bicarbonate 650 MG TABLET 1300 MG PO (08:48)
[2023-11-13] MEDS: 0.9 % Sodium Chloride Flush 3 ML SYRINGE IVFLUSH (08:51)
[2023-11-13] MEDS: amLODIPine Besylate 10 MG TABLET PO (08:51)
[2023-11-13] MEDS: carvediloL 3.125 MG TABLET PO (08:52)
--- NOTE | 2023-11-13 10:30 | MHC.CM.PN ---
DP: PT HAS BEEN MEDICALLY CLEARED FOR DC HOME, NO SERVICES. DAUGHTER WILL TRANSPORT.
--- NOTE | 2023-11-13 10:33 | PM.DS ---
DS: Providers Provider Date of Service: 11/13/23 Date of admission: 11/09/23 09:30 Primary care physician: Britt De MD Consults: 11/09/23 08:52 Consult to Gastroenterology Routine Consulting Provider: Miranda Singh Reason for consultation: anemia Has provider been notified: No 11/09/23 08:54 Consult to Nephrology Routine Consulting Provider: [facility] Reason for consultation: CKD 11/09/23 12:49 Consult to Cardiology Routine Consulting Provider: [facility] Reason for consultation: Pre op eval, GI requesting, did show for stress in the past Has provider been notified: Yes DS: Diagnosis Discharge Diagnosis (1) Acute on chronic anemia: Status: Acute (2) CKD (chronic kidney disease) stage 5, GFR less than 15 ml/min: Status: Acute (3) Bleeding hemorrhoids: Status: Acute (4) GI bleeding: Status: Acute (5) Symptomatic anemia: Status: Acute (6) CKD (chronic kidney disease): Status: Acute DS: Summary Hospital Course Hospital Course: Admission note HPI This 58-year-old woman with stage 5 chronic kidney disease without hemodialysis initiation yet, along with uncontrolled hypertension, chronic systolic congestive heart failure (ejection fraction 40-45% as of December 2022), and chronic iron deficiency anemia. Despite medical recommendations, she has declined colonoscopy and is non-adherent to medications and follow-up appointments. Presenting symptoms include weakness, shortness of breath, and chest pain reported yesterday. She denies melena. Emergency department findings reveal a hemoglobin level of 4.2 and hematocrit of 14, with negative occult blood and troponin tests. The ECG shows no acute ischemic changes. Creatinine levels are elevated at 5.76, and CO2 levels are low at 13. Hospital course Symptomatic Anemia 2/2 chronic anemia and Acute Blood loss anemia from bleeding hemorrhoids with Hematocrit of 4.2. She required total of 5 units transfusion with improvement of Hb on day of discharge to 8.4. Kept on IV Pantoprazole as she was evaluated by dr Singh from GI who did EGD and Colonoscopy showing mild esophagitis along with internal and external hemorrhoids. recommended discharge on Anusol supp and Sitz bath with a plan to follow up as outpatient for repeat Colonoscopy in 6 months as preperation was not optimal. Tolerated diet well after procedure. no further bleeding reported. Omeprazole for Esophagitis. For history of CKD 5 she was seen by Nephrology consult, no need for HD at this stage as no urgent inciation for HD. Started on Sodium Bicab for Metabolic acidosis. To follow with nephrology as outpatient. Use Anusol Supp twice daily. can use extra if needed apply hemorroidal cream 2-3 times daily Avoid constipation. Take Fibers Start Omeprazole for esophagitis To follow with dr Singh as outpatient for follow up colonoscopy in 6 weeks Time Attestation Discharge Coordination Time (in mins): 35 Quality: Safe Use of Opioids Does Pt have an Active Cancer Diagnosis on the Problem List?: No Quality: Stroke Does the patient have a stroke diagnosis?: No Physical Exam Vital Signs: Vital Signs: Last Vital Signs Temp 97.8 F 11/13/23 06:52 Pulse 90 11/13/23 06:52 Resp 16 11/13/23 06:52 BP 139/80 11/13/23 06:52 Pulse Ox 99 11/13/23 06:52 O2 Del Method Room Air 11/13/23 06:52 O2 Flow Rate 100 11/12/23 15:27 BMI result Body Mass Index 30.9 Const: Other: Constitutional : Awake, interactive, not in distress Neck : Normal inspection, Supple Cardiovascular : RRR, no JVP, no lower extremity edema Respiratory : good bilateral air entry, no crackles, wheezes or rhonchi Gastrointestinal: soft, lax, Normal bowel sounds, Non tender Skin : Warm, Dry Neurological : Alert & oriented x3, No focal deficit DS: Data Data Completed and Pending Pending studies at discharge: Pending at discharge 11/12/23 15:00 Surgical [PTH] Routine Labs on day of discharge: Laboratory Results - last 24 hr 11/12/23 11/13/23 09:04 06:03 WBC 8.1 RBC 3.29 L Hgb 8.4 L Hct 26.1 L MCV 79.3 L MCH 25.5 L MCHC 32.2 RDW 21.2 H Plt Count 178 MPV 9.8 Absolute Nucleated RBC 0.000 Nucleated RBC % (auto) 0.0 Sodium 144 Potassium 5.0 Chloride 114 H Carbon Dioxide 18 L Anion Gap 17 BUN 80 H Creatinine 4.81 H* Estim Creat Clear Calc 14.1 Estimated GFR 9 Random Glucose 82 Calcium 8.2 L Crossmatch See Detail Discharge Plan Discharge Anticipated Discharge Date/Time: 11/13/23 10:14 Patient Disposition: Home, Self-Care Discharge Diagnosis: External and internal hemorroids Symptomatic severe anemia Referrals: Britt Chavez MD [Primary Care Provider] - 1 Week Discharge Medications: New sodium bicarbonate 650 mg Tablet 1,300 mg PO TID Qty: 180 2RF omeprazole 20 mg capsule,delayed release(DR/EC) 20 mg PO DAILY Qty: 90 0RF (DME) sitz bath Kit See Rx Instructions .Route Qty: 1 0RF Rx Instructions: As directed hydrocortisone acetate 25 mg suppository 25 mg VT BID 28 Days Qty: 100 0RF Hemorrhoidal Ointment 1 appl VT Q8H Qty: 57 0RF Continued amlodipine 10 mg tablet 10 mg PO DAILY 90 Days Qty: 90 0RF carvedilol 3.125 mg tablet 3.125 mg PO BID Qty: 180 3RF (DME) hand held shower See Rx Instructions .Route .MEDSUPPLY Qty: 1 0RF Rx Instructions: As directed (DME) bed rail See Rx Instructions .Route .MEDSUPPLY Qty: 1 0RF Rx Instructions: As directed (DME) Grab bar Misc See Rx Instructions .Route Qty: 1 0RF Rx Instructions: As directed (DME) Shower Chair Misc See Rx Instructions .Route Qty: 1 0RF Rx Instructions: with back (DME) pill box twice daily See Rx Instructions .Route .MEDSUPPLY Qty: 1 0RF Rx Instructions: As directed (DME) blood pressure monitor Kit See Rx Instructions .Route Qty: 1 0RF Rx Instructions: As directed Discharge Orders: Discharge Order (Routine); Ordered 11/13/23 Ordered By: Wili Schroeder Diet: Advance to usual diet Activity on Discharge: As tolerated Stand Alone Forms: Patient Portal Discharge page Care Plan Goals: Read below Health Concerns: Read below Plan of Treatment: Read below Assessment: You were admitted to the hospital for treatment of severe anemia and rectal bleeding. responded well to blood transfusion as you were evaluated by GI specialist who did upper and lower endoscopies that showed external and internal hemorrhoids. Use Anusol Supp twice daily. can use extra if needed apply hemorroidal cream 2-3 times daily Avoid constipation. Take Fibers Start Omeprazole for esophagitis To follow with dr Singh as outpatient for follow up colonoscopy in 6 weeks
--- NOTE | 2023-11-13 11:03 | P.PNNP_ITS ---
Subjective Subjective Date of Service: 11/13/23 Interval history: Events noted Physical Exam 2 Vital Signs: Vital Signs: Last Vital Signs Temp 97.8 F 11/13/23 06:52 Pulse 90 11/13/23 06:52 Resp 16 11/13/23 06:52 BP 139/80 11/13/23 06:52 Pulse Ox 99 11/13/23 06:52 O2 Del Method Room Air 11/13/23 06:52 O2 Flow Rate 100 11/12/23 15:27 BMI result Body Mass Index 30.9 Const: Other: Constitutional : Awake, interactive, not in distress Neck : Normal inspection, Supple Cardiovascular : RRR, no JVP, no lower extremity edema Respiratory : good bilateral air entry, no crackles, wheezes or rhonchi Gastrointestinal: soft, lax, Normal bowel sounds, Non tender Skin : Warm, Dry Neurological : Alert & oriented x3, No focal deficit Objective Data Labs 11/13/23 06:03 11/13/23 06:03 Labs: Laboratory Results - last 24 hr 11/12/23 11/13/23 09:04 06:03 WBC 8.1 RBC 3.29 L Hgb 8.4 L Hct 26.1 L MCV 79.3 L MCH 25.5 L MCHC 32.2 RDW 21.2 H Plt Count 178 MPV 9.8 Absolute Nucleated RBC 0.000 Nucleated RBC % (auto) 0.0 Sodium 144 Potassium 5.0 Chloride 114 H Carbon Dioxide 18 L Anion Gap 17 BUN 80 H Creatinine 4.81 H* Estim Creat Clear Calc 14.1 Estimated GFR 9 Random Glucose 82 Calcium 8.2 L Crossmatch See Detail Procedures Date of Service Date of Service: 11/13/23 Assessment & Plan Assessment and plan (1) Acute on chronic anemia: Status: Acute (2) CKD (chronic kidney disease) stage 5, GFR less than 15 ml/min: Status: Acute Plan 58-year-old woman with advanced renal failure approaching end stage renal disease. Renal functions close to baseline. No overt signs or symptoms of uremia or fluid overload. No absolute indication for dialysis yet. Severe anemia. Primarily due to acute blood loss. She probably also has underlying erythropoietin deficiency due to advanced CKD. workup for GI bleed. Transfuse as needed. Replace iron. Venofer 200 mg IV daily times 3 doses - can be done as outpt p.o. bicarbonate to correct acidosis Time Spent With Patient Time: Total time managing care of this patient today ____ minutes. Progress Note: Quality Stroke Does the patient have a stroke diagnosis?: No
--- NOTE | 2023-11-13 12:13 | P.CDIM_ITS ---
PROVIDER RESPONSE TEXT: To clarify, the appropriate diagnosis supported by the clinical indicators: Hypernatremia: resolved QUERY TEXT: PHYSICIAN'S DOCUMENTATION REQUEST Date of Query: 11/13/2023 09:42 AM EDT Patient Name: Anh Grace Admit Date: 11/09/2023 Dear Wili Schroeder, A review of the medical record indicates additional documentation may be needed. Please review below and update the documentation accordingly. Clinical Indicators: LABS: sodium 142 146 H 142 Fluids Based on the above, is there a diagnosis that correlates with these lab findings: Hypernatremia resolved, possible, probable etc. Labs indicate a diagnosis of (please specify) Other (explain) Clinically unable to determine (explain) Thank you, Victorina Parsons, CCS, CDIS Use of terms such as suspected, likely, concern for, or probable (associated with a specific diagnosi s that is being evaluated, monitored, or treated as if it exists) are acceptable and can be coded in the inpatient se tting, when documented at the time of discharge. Please use your independent medical judgment in providing your response. THIS QUERY IS PART OF THE PERMANENT MEDICAL RECORD
--- NOTE | 2023-11-13 14:28 | HO.POSTANES ---
Post Anesthesia Evaluation Post Anesthesia Evaluation Date of Service: 11/13/23 Vital Signs: Vital Signs Temp Pulse Resp BP Pulse Ox O2 Del Method 11/13/23 06:52 97.8 F 90 16 139/80 99 Room Air 11/13/23 03:04 97.4 F 90 18 129/72 96 Room Air Anesthesia: Monitored Mental Status: Awake Pain Control: Satisfactory Nausea/Vomiting: None Hydration: Adequate Anesthesia-Related Issues: No Anes. Related Issues
== END 2023-11-13 11:18 | disposition home or self-care (01) | DRG 394 ==
LOC: HO.ED 02:46 → HO.EDOVER 09:35 → HO.S3 18:19
PROVIDERS: Internal Medicine; Internal Medicine Nephrology; Admitting Provider Internal Medicine; Emergency Provider Emergency Medicine; PCP Internal Medicine; Visit Provider Student in an Organized Health Care Education/Training Program
PROC: 0DJD8ZZ Inspection of Lower Intestinal Tract, Via Natural or Artificial Opening Endoscopic (ICD-10-PCS; principal; 2023-11-12 14:00)
DX: K64.8 Other hemorrhoids (principal); D62 Acute posthemorrhagic anemia; I13.2 Hypertensive heart and chronic kidney disease with heart failure and with stage 5 chronic kidney disease, or end stage renal disease; N18.5 Chronic kidney disease, stage 5; E87.0 Hyperosmolality and hypernatremia; I50.22 Chronic systolic (congestive) heart failure; I42.9 Cardiomyopathy, unspecified; K22.10 Ulcer of esophagus without bleeding; K44.9 Diaphragmatic hernia without obstruction or gangrene; K64.4 Residual hemorrhoidal skin tags; D63.1 Anemia in chronic kidney disease; E11.22 Type 2 diabetes mellitus with diabetic chronic kidney disease; Z91.148 Patient's other noncompliance with medication regimen for other reason; Z20.822 Contact with and (suspected) exposure to COVID-19; Z79.899 Other long term (current) drug therapy
CPT/HCPCS: 0241U; 36415; 71045; 80048; 80076; 81001; 82272; 82306; 82310; 82607; 82728; 82746; 83036; 83540; 83615; 83970; 84100; 84466; 84484; 85014; 85018; 85025; 85027; 86850; 86900; 86901; 86923; 88305; 88313; 93005; 93306; 99285; C9113; J0330; J1940; J2250; J2371; J2405; J2704; P9016

== ENCOUNTER → 2023-11-09 00:29 | Outpatient (BNV) | payer OTHER, SELFPAY | PROVIDERS: Admitting Provider Internal Medicine; Emergency Provider Emergency Medicine; PCP Internal Medicine; Visit Provider Internal Medicine Cardiovascular Disease | DX: R06.02 Shortness of breath (principal) | CPT/HCPCS: 93010 ==

== ENCOUNTER → 2023-11-09 01:24 | Outpatient (BNV) | payer OTHER, SELFPAY | PROVIDERS: Emergency Provider Emergency Medicine; PCP Internal Medicine; Visit Provider Internal Medicine Nephrology | DX: N18.5 Chronic kidney disease, stage 5 (principal); D63.1 Anemia in chronic kidney disease | CPT/HCPCS: 99223; 99232; 99499 ==

== ENCOUNTER 2023-11-09 09:30 | Outpatient (BNV) | payer OTHER, SELFPAY | END 2023-11-12 07:00 | PROVIDERS: Admitting Provider Internal Medicine; Emergency Provider Emergency Medicine; PCP Internal Medicine; Visit Provider Internal Medicine Cardiovascular Disease | DX: I34.0 Nonrheumatic mitral (valve) insufficiency (principal) | CPT/HCPCS: 93306 ==

== ENCOUNTER → 2023-11-09 09:30 | Outpatient (BNV) | payer OTHER, SELFPAY | PROVIDERS: Admitting Provider Internal Medicine; Emergency Provider Emergency Medicine; PCP Internal Medicine; Visit Provider Student in an Organized Health Care Education/Training Program | DX: I12.0 Hypertensive chronic kidney disease with stage 5 chronic kidney disease or end stage renal disease (principal); N18.5 Chronic kidney disease, stage 5; D63.1 Anemia in chronic kidney disease | CPT/HCPCS: 99223; 99232; 99233; 99239 ==

== ENCOUNTER → 2023-11-09 09:30 | Outpatient (BNV) | payer OTHER, SELFPAY | PROVIDERS: Admitting Provider Internal Medicine; Emergency Provider Emergency Medicine; PCP Internal Medicine; Visit Provider Internal Medicine Cardiovascular Disease | DX: D64.9 Anemia, unspecified (principal); I50.22 Chronic systolic (congestive) heart failure | CPT/HCPCS: 99222 ==

== ENCOUNTER → 2023-11-09 09:30 | Outpatient (BNV) | payer OTHER, SELFPAY | PROVIDERS: Admitting Provider Internal Medicine; Emergency Provider Emergency Medicine; PCP Internal Medicine; Visit Provider Internal Medicine | DX: D50.9 Iron deficiency anemia, unspecified (principal); K20.90 Esophagitis, unspecified without bleeding; K64.8 Other hemorrhoids | CPT/HCPCS: 43239; 45378; 99222 ==

== ENCOUNTER 2023-11-22 12:57 | Outpatient (AMB) | payer OTHER, SELFPAY ==
--- NOTE | 2023-11-22 13:01 | MHC.PC.OV ---
Vital Signs 11/22/23 13:04 Height 5 ft 6 in Weight 187 lb BMI 30.2 BP 120/70 Blood Pressure Location Lt brachial Position Sitting Intake Visit Reasons: HDF [facility] 38 to 3- Intake Note: Patient here for HDF from [facility] disch 11/13/23 Patient Transportation Driver Required: No Accompanied by: Daughter Allergies Penicillins Allergy (Intermediate, Verified 11/23/23 10:16) RASH Medication List - Last Reconciled 11/22/23 by Britt De MD amlodipine 10 mg PO DAILY 90 days [bed rail As directed] blood pressure monitor As directed carvedilol 3.125 mg PO BID Grab bar As directed [hand held shower As directed] hydrocortisone 2.5% (Proctosol HC) 1 appl PA BID-QID PRN 30 days hydrocortisone acetate 25 mg PA BID 4 weeks omeprazole 20 mg PO DAILY phenyleph-shark carmina oil-mo-pet (Hemorrhoidal ointment) 1 appl PA Q8H [pill box twice daily As directed] Shower Chair with back sitz bath As directed sodium bicarbonate 1,300 mg (2 x 650 mg) PO TID Tobacco use date assessed: 11/22/23 Dental Screening Dental Screen Date: 11/22/23 Did you have a dental visit in the last 12 months?: No Did you have a dental problem in the last 6 months where you did not have access to dental care?: No Was dental information given to patient?: Patient has dentist HPI HPI Comments History of Present Illness Details This is a 58 year old female with anemia in chronic kidney disease, chronic systolic congestive heart failure, chronic kidney disease stage 5 not on hemodialysis and hypertension that comes today accompanied by daughter for hospital discharge follow up with discharge date 11/13/23 due to symptomatic anema and lower GI bleeding. She went to ER due to weakness and chest pain that bother her that same day. EKG done showing no significant abnormality. Hemoglobin of 2.8 requiring 5 Units of PRBCs in 11/09/23 when she was admitted. Last hemoglobin was 8.4 and CBC will be repeated. She denied melena. Had EGD and colonoscopy showing bleeding hemorrhoids. Nephrology was consulted for her stage 5 CKD which did not felt like she needed hemodialysis and add sodium bicarbonate for her medications and will be follow as outpatient. Cardiology was also consulted for her CHF in which last EF from December 2022 was 40 to 45 % but CHF was not decompensated at the moment. BP stable. She is a very noncompliant patient with follow ups, medication and labs. Feels markedly improved. [facility] Medical History (Updated 11/23/23 @ 12:20 by Britt De MD) CKD (chronic kidney disease) stage 5, GFR less than 15 ml/min Essential hypertension Normocytic anemia Surgical History History of surgery Status post dilation and curettage History of abdominal surgery History of extraction of renal calculus History of tubal ligation Family History Father Throat cancer Mother Hypertension Daughter In good health Daughter In good health Sister In good health Family/Other Breast cancer Social History Household Members: Children Housing: Apartment Do you presently have visiting nurse or other home services: Yes (visiting nurse) Alcohol intake: never Patient Tobacco Use Status: Never used Tobacco Tobacco use type: Cigarette Years Smoked: 30 +/- e-Cigarette/Vaping Use: Never Used Second Hand Smoke Exposure: No service: No Current occupational status: unemployed Cognitive needs: No Hearing needs: No Vision needs: No Questionnaire PHQ-9 Over the last 2 weeks, how often have you been bothered by any of the following problems? 1. Little interest or pleasure in doing things: not at all 2. Feeling down, depressed, or hopeless: not at all 3. Trouble falling or staying asleep, or sleeping too much: not at all 4. Feeling tired or having little energy: not at all 5. Poor appetite or overeating: not at all 6. Feeling bad about yourself - or that you are a failure or have let yourself or your family down: not at all 7. Trouble concentrating on things, such as reading the newspaper or watching television: not at all 8. Moving or speaking so slowly that other people could have noticed. Or the opposite - being so fidgety or restless that you have been moving around a lot more than usual: not at all 9. Thoughts that you would be better off or of hurting yourself in some way: not at all Total score: 0 Depression Screening Interpretation: Negative Depression Screening Done: Yes 44973 - PHQ-9 Billing: Yes Source: Developed by Drs. Tarun Fernandez, Mik Vaca and colleagues, with an educational kevan from [employer] Thrive Questionnaire Date Thrive assessed: 11/22/23 I am a: Patient What is your living situation today?: I have a steady place to live Within the past 12 months, did the food you bought not last and you didn't have the money to get more?: Never true Within the past 12 months, did you worry whether your food would run out before you got money to buy more?: Never true Do you have trouble paying for medicines?: No Do you have trouble getting transportation to medical appointments?: No Do you have trouble paying your heating and electricity bill?: No Do you have trouble taking care of your child, family member or friend?: No Do you have trouble with day-to-day activities such as bathing, preparing meals, shopping, managing finances, etc.?: No Are you currently unemployed and looking for a job?: No Are you interested in more education?: No Please select the resources that you would like help with: None Currently or been in a relationship where the following occur: no concerns reported THRIVE Score: 0 AUDIT C Alcohol Use Questionnaire (AUDIT-C) 1. How often do you have a drink containing alcohol?: Never Total Score: 0 PAUL-7 AMB Questionnaire PAUL-7 Date PAUL - 7 assessed: 11/22/23 Feeling nervous, anxious, or on edge: 0 = Not at all Not being able to stop or control worryin = Not at all Worrying too much about different things: 0 = Not at all Trouble relaxin = Not at all Being so restless that it is hard to sit still: 0 = Not at all Becoming easily annoyed or irritable: 0 = Not at all Feeling afraid as if something awful might happen: 0 = Not at all Total PAUL-7 score (0-4 normal; 5-9 mild; 10-14 moderate; 15-21 severe): 0 Source: Developed by Ciarra Richards Kurt Kroenke and colleagues, with an educational kevan from [employer] PAUL-7 Assessment Billing PAUL-7 Assessment Tool: PAUL-7 Assessment 95430 Review of Systems Const All systems reviewed & are unremarkable except as noted in HPI and below Eyes Reports no additional complaints, Denies change in vision and Denies other visual disturbances Card Denies chest pain at rest, Denies chest pain with activity, Denies edema, Denies irregular heart rhythm, Denies claudication, Denies dyspnea, Denies dyspnea on exertion, Denies orthopnea, Denies paroxysmal nocturnal dyspnea and Denies slow heart rate Resp Denies cough, Denies dyspnea and Denies dyspnea on exertion GI Denies abdominal pain, Denies change in bowel habits, Denies excessive flatus, Denies nausea and Denies vomiting Denies urinary incontinence, Denies urinary hesitancy and Denies urinary urgency Musc Denies abnormal gait, Denies atrophy, Denies deformity and Denies limited range of motion Skin/Breast Denies bleeding lesions, Denies changing lesions and Denies rash Neuro Denies abnormal gait and Denies lack of coordination Physical exam (Primary Care) Vital Signs: Last Vital Signs BP 120/70 11/22/23 13:04 BMI result Body Mass Index 30.2 Tobacco/Smoking Status: Tobacco use Status Tobacco use date assessed 11/22/23 11/22/23 13:11 Patient Tobacco Use Status Never used Tobacco 11/22/23 13:11 Tobacco use type Cigarette 11/22/23 13:11 e-Cigarette/Vaping Use Never Used 11/22/23 13:11 PHQ-9: PHQ-9 Score PHQ-9: Total score 0 11/22/23 14:03 Depression Screening Interpretation: Negative Thrive Assessment: Date of Thrive Assessment Date Thrive assessed 11/22/23 11/22/23 13:11 Currently or been in a relationship where the following occur: no concerns reported Const Orientation/consciousness: patient oriented x3 Eyes General: appearance normal, both eyes and all related structures Eyelids: Yes eyelids normal Conjunctivae: conjunctivae normal Neck Neck: Yes normal visual inspection and Yes supple Resp Effort & Inspection: normal respiratory effort Auscultation: clear to auscultation bilaterally Cardio Jugular venous distension: no JVD Rate: regular rate Rhythm: regular rhythm Heart sounds: S1 normal heart sound present and S2 normal heart sound present Neuro General: patient oriented x3 Extrem General: Yes full ROM Assessment and Plan Assessment & Plan (1) Hospital discharge follow-up: Code(s): Z09 - Encounter for follow-up examination after completed treatment for conditions other than malignant neoplasm Plan: Patient admitted 11/09/23 and discharge 11/13/23 due to lower GI bledding secondary to bleeding hemorrhoids causing symptomatic anemia. Had 5 Units of PRBCs while hospitalized. Had endoscopy showing gastritis. Had Protonix IV while hospitalized. Had colonoscopy also but prep was poor therefore GI recommended to repeat colonoscopy in 6 months. (2) Anemia in chronic kidney disease (CKD): Code(s): N18.9 - Chronic kidney disease, unspecified; D63.1 - Anemia in chronic kidney disease Qualifiers: Chronic kidney disease stage: stage 5, not on chronic dialysis Qualified Code(s): N18.5 - Chronic kidney disease, stage 5; D63.1 - Anemia in chronic kidney disease Plan: Was transfuse 5 Units PRBCs. Initial hemoglobin of 2.8 and hemoglobin discharge was 8.4. CBC will be repeated. (3) Chronic systolic (congestive) heart failure: Code(s): I50.22 - Chronic systolic (congestive) heart failure Plan: Continue Carvedilol. The goal is to not gain 5 lbs in a week. (4) CKD (chronic kidney disease) stage 5, GFR less than 15 ml/min: Code(s): N18.5 - Chronic kidney disease, stage 5 Plan: Start sodium bicarbonate. Follow up with nephrology. Avoid NSAIDs. Keep BP within goal. (5) Essential hypertension: Code(s): I10 - Essential (primary) hypertension Plan: Continue amlodipine. BP goal is equal or less than 130/80. Orders: Orders Comprehensive [place]. Panel Fast 11/22/23 I50.22 - Chronic systolic (congestive) heart failure Complete Blood Count Auto Diff 11/22/23 D64.9 - Anemia, unspecified IRON PROFILE 11/22/23 D64.9 - Anemia, unspecified Vitamin D 25-OH Total 11/22/23 E55.9 - Vitamin D deficiency, unspecified Lipid Panel 11/22/23 E78.5 - Hyperlipidemia, unspecified NT-proBNP 11/22/23 I50.22 - Chronic systolic (congestive) heart failure Medications: Refilled [bed rail] As directed 1 ea 0RF I50.22 - Chronic systolic (congestive) heart failure [pill box twice daily] As directed 1 ea 0RF I50.22 - Chronic systolic (congestive) heart failure [hand held shower] As directed 1 ea 0RF I50.22 - Chronic systolic (congestive) heart failure Grab bar As directed 1 ea 0RF I50.22 - Chronic systolic (congestive) heart failure Shower Chair with back 1 ea 0RF I50.22 - Chronic systolic (congestive) heart failure Coding Level of Care Code TCM Mod MDM <= 14 Days Diagnoses Hospital discharge follow-up Z09 Anemia in stage 5 chronic kidney disease, not on chronic dialysis N18.5; D63.1 Chronic kidney disease stage: stage 5, not on chronic dialysis Chronic systolic (congestive) heart failure I50.22 CKD (chronic kidney disease) stage 5, GFR less than 15 ml/min N18.5 Essential hypertension I10 Additional Codes PAUL-7 Assessment Billing - PAUL-7 Assessment Tool: PAUL-7 Assessment [id number] ([id number]) Time Spent (min) 29
[2023-11-22 13:04] VITALS: BP 120/70; BMI 30.2
== END 2023-11-22 14:01 | disposition home or self-care (01) ==
PROVIDERS: PCP Internal Medicine; Visit Provider Internal Medicine
DX: I12.0 Hypertensive chronic kidney disease with stage 5 chronic kidney disease or end stage renal disease (principal); N18.5 Chronic kidney disease, stage 5; I50.22 Chronic systolic (congestive) heart failure; Z09 Encounter for follow-up examination after completed treatment for conditions other than malignant neoplasm; D63.1 Anemia in chronic kidney disease
CPT/HCPCS: 99214

== ENCOUNTER 2023-11-23 10:01 | Outpatient (AMB) | payer OTHER, SELFPAY ==
[2023-11-23 10:12] VITALS: BP 110/70; PULSE 96; O2SAT 98; BMI 30.5
--- NOTE | 2023-11-23 10:12 | HO.NEPHOV_ITS ---
HPI HPI Comments History of Present Illness Details 58-year-old woman with stage 5 chronic k idney disease without hemodialysis initiation yet, along with uncontrolled hypertension, chronic systolic congestive heart failure (ejection fraction 40-45% as of December 2022), and chronic iron deficiency anemia who despite medical recommendations, had declined colonoscopy with non-adherence to medications and follow-up appointments, presented to ER recently with symptoms include weakness, shortness of breath, and chest pain . She denies melena at that time. Emergency department findings reveal a hemoglobin level of 4.2 and hematocrit of 14, with negative occult blood and troponin tests. ECG shows no acute ischemic changes. Creatinine levels at that time was 5.76 with CO2 of 13. She required total of 5 units transfusion with improvement of Hb on day of discharge to 8.4. She was kept on IV Pantoprazole as she was evaluated by Dr Singh from GI who did EGD and Colonoscopy which showed mild esophagitis along with internal and external hemorrhoids. She needs repeat Colonoscopy in 6 months as preperation was not optimal. She was started on omeprazole for Esophagitis. She was started on Sodium Bicab for Metabolic acidosis. She is seen today in follow up. She denies uremic symptoms. She was seen with Fine Unhairer. COUNTS INCLUDE 234 BEDS AT THE [facility] Medical History CKD (chronic kidney disease) stage 5, GFR less than 15 ml/min Essential hypertension Normocytic anemia Surgical History History of surgery Status post dilation and curettage History of abdominal surgery History of extraction of renal calculus History of tubal ligation Family History Father Throat cancer Mother Hypertension Daughter In good health Daughter In good health Sister In good health Family/Other Breast cancer Social History Household Members: Children Housing: Apartment Do you presently have visiting nurse or other home services: Yes (visiting nurse) Alcohol intake: never Patient Tobacco Use Status: Never used Tobacco Tobacco use type: Cigarette Years Smoked: 30 +/- e-Cigarette/Vaping Use: Never Used Second Hand Smoke Exposure: No service: No Current occupational status: unemployed Cognitive needs: No Hearing needs: No Vision needs: No Vital Signs 03/22/24 10:12 Height 5 ft 6 in Weight 189 lb BMI 30.5 BP 110/70 Blood Pressure Location Rt brachial Position Sitting Pulse 96 Pulse Source Pulse Oximeter Pulse Oximetry (%) 98 Oxygen Delivery Method Room Air Physical Exam Vital Signs: Last Vital Signs Pulse 96 11/23/23 10:12 BP 110/70 11/23/23 10:12 Pulse Ox 98 11/23/23 10:12 Oxygen Delivery Method Room Air 11/23/23 10:12 BMI result Body Mass Index 30.5 Const General: comfortable and no acute distress Orientation/consciousness: patient oriented x3 HEENT Head: Yes normocephalic Mouth: Normal oral and palatal mucosa present Eyes EOM: EOMs intact bilaterally Neck Neck: Yes supple Resp Auscultation: clear to auscultation bilaterally Cardio Jugular venous distension: no JVD Rate: regular rate GI Palpation (GI): Soft to palpation Auscultation: normal bowel sounds General: Yes no CVA tenderness Back/Spine/Pelvis Back: no CVA tenderness Skin General skin exam: no rashes or lesions noted Neuro General: patient oriented x3 and moves all extremities Extrem General: Yes no pedal edema Assessment & Plan Assessment & Plan (1) Anemia in chronic kidney disease (CKD): Code(s): N18.9 - Chronic kidney disease, unspecified; D63.1 - Anemia in chronic kidney disease Qualifiers: Chronic kidney disease stage: stage 5, not on chronic dialysis Qualified Code(s): N18.5 - Chronic kidney disease, stage 5; D63.1 - Anemia in chronic kidney disease (2) Secondary hyperparathyroidism (of renal origin): Code(s): N25.81 - Secondary hyperparathyroidism of renal origin (3) CKD (chronic kidney disease) stage 5, GFR less than 15 ml/min: Code(s): N18.5 - Chronic kidney disease, stage 5 (4) Iron deficiency: Code(s): E61.1 - Iron deficiency Plan 58-year-old woman with advanced renal failure approaching end stage renal disease. Renal functions close to baseline. ; No overt signs or symptoms of uremia or fluid overload. No absolute indication for dialysis yet. 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 Started on Ferrous sulphate ; On p.o. bicarbonate to correct acidosis; Will need HD access and transplant referral Time spent for data retreival, talking to family, visit and documentation 59 minutes; Labs next week; F/U 2 weeks Orders: Orders Complete Blood Count Auto Diff 1 Week D63.1 - Anemia in chronic kidney disease, N18.5 - Chronic kidney disease, stage 5, N18.9 - Chronic kidney disease, unspecified, N25.81 - Secondary hyperparathyroidism of renal origin IRON PROFILE 1 Week D63.1 - Anemia in chronic kidney disease, N18.5 - Chronic kidney disease, stage 5, N18.9 - Chronic kidney disease, unspecified, N25.81 - Secondary hyperparathyroidism of renal origin Creatinine Today D63.1 - Anemia in chronic kidney disease, N18.5 - Chronic kidney disease, stage 5, N18.9 - Chronic kidney disease, unspecified, N25.81 - Secondary hyperparathyroidism of renal origin Blood Urea Nitrogen Today D63.1 - Anemia in chronic kidney disease, N18.5 - Chronic kidney disease, stage 5, N18.9 - Chronic kidney disease, unspecified, N25.81 - Secondary hyperparathyroidism of renal origin Electrolytes Today D63.1 - Anemia in chronic kidney disease, N18.5 - Chronic kidney disease, stage 5, N18.9 - Chronic kidney disease, unspecified, N25.81 - Secondary hyperparathyroidism of renal origin Medications: New cholecalciferol (vitamin D3) 1,250 mcg PO QWEEK 14 caps 0RF ferrous sulfate 325 mg PO BID 30 days 60 tabs 3RF Coding Level of Care Code Est Pt Level 5 (79469) Diagnoses Anemia in stage 5 chronic kidney disease, not on chronic dialysis N18.5; D63.1 Chronic kidney disease stage: stage 5, not on chronic dialysis Secondary hyperparathyroidism (of renal origin) N25.81 CKD (chronic kidney disease) stage 5, GFR less than 15 ml/min N18.5 Iron deficiency E61.1 Results Reviewed Nephrology Results: Hgb 8.4 g/dl (12.0-16.0) L 11/13/23 WBC 8.1 X10*3/uL (4.8-10.8) 24 Plt Count 178 X10*3/uL (160-400) 24 Sodium 144 mmol/L (135-145) 24 Potassium 5.0 mmol/L (3.3-5.1) 03/12/24 Chloride 114 mmol/L (96-108) H 11/13/23 Carbon Dioxide 18 mmol/L (22-29) L 11/13/23 BUN 80 mg/dL (9-16) H 11/13/23 Creatinine 4.81 mg/dL (0.5-1.4) H* 11/13/23 Calcium 8.2 mg/dL (8.4-10.2) L 11/13/23 Phosphorus 6.1 mg/dL (2.7-4.5) H 11/10/23 PTH Intact 732.8 pg/mL (8.7-77.1) H 11/10/23 Urine Protein 100 (2+) mg/dL (Neg-Trace) H 11/09/23
== END 2023-11-23 11:15 | disposition home or self-care (01) ==
PROVIDERS: PCP Internal Medicine; Visit Provider Internal Medicine Nephrology
DX: N18.5 Chronic kidney disease, stage 5 (principal); D63.1 Anemia in chronic kidney disease; N25.81 Secondary hyperparathyroidism of renal origin; E61.1 Iron deficiency
CPT/HCPCS: 99214

== ENCOUNTER → 2023-11-23 10:01 | Outpatient (BNVA) | payer OTHER, SELFPAY | PROVIDERS: PCP Internal Medicine; Visit Provider Internal Medicine Nephrology | DX: N25.81 Secondary hyperparathyroidism of renal origin (principal); N18.5 Chronic kidney disease, stage 5; D63.1 Anemia in chronic kidney disease; E61.1 Iron deficiency; I13.2 Hypertensive heart and chronic kidney disease with heart failure and with stage 5 chronic kidney disease, or end stage renal disease; I50.22 Chronic systolic (congestive) heart failure | CPT/HCPCS: 99212 ==

== ENCOUNTER 2023-11-24 10:09 | Outpatient (REF) | payer OTHER, SELFPAY ==
[2023-11-24 10:21] LABS: MANUAL DIFF FLAG NO
[2023-11-24 11:24] LABS: Basophils Percent Auto 0.6 % (0-2); Eosinophils Absolute Auto 0.1 X10*3/uL (0.0-0.4); Eosinophils Percent Auto 1.8 % (0-4); Hematocrit 22.9 % (37.0-47.0); Imm Gran Abs Auto 0.03 X10*3/uL (0.00-0.03); Imm Gran Pct Auto 0.6 % (0.0-0.4); Lymphocytes Absolute Auto 1.4 X10*3/uL (1.2-4.9); Lymphocytes Percent Auto 27.2 % (20-40); Mean Corpuscular HGB Conc 30.1 g/dl (31.0-35.0); Mean Corpuscular Hemoglobin 25.2 pg (27.0-33.0); Mean Corpuscular Volume 83.6 fL (80.0-98.0); Mean Platelet Volume 10.1 fL (9.4-12.3); Monocytes Absolute Auto 0.5 X10*3/uL (0.1-1.2); Monocytes Percent Auto 8.9 % (2-11); Neutrophils Absolute Auto 3.1 x10*3/uL (2.0-8.3); Neutrophils Percent Auto 60.9 % (45-73); Platelet Count 244 X10*3/uL (160-400); Red Blood Count 2.74 X10*6/uL (4.20-5.50); Red Cell Distribution Width 23.5 % (11.0-16.0)
[2023-11-24 12:00] LABS: Alanine Aminotransferase 23 U/L (0-31); Albumin Level 3.6 g/dL (3.5-5.0); Alkaline Phosphatase 120 U/L (39-117); Anion Gap 16 (12-20); Aspartate Amino Transferase 20 U/L (5-31); Bilirubin Total 0.4 mg/dL (0.0-1.0); Blood Urea Nitrogen 54 mg/dL (9-16); Calcium 8.5 mg/dL (8.4-10.2); Carbon Dioxide 21 mmol/L (22-29); Chloride 114 mmol/L (96-108); Cholesterol 175 mg/dL (<200); Glucose Fasting 85 mg/dL (60-99); HDL Cholesterol 46 mg/dL (>40); Iron 64 mcg/dL (30-160); LDL Cholesterol Calculated 104 mg/dL (<100); Percent Iron Saturation 23 % (15-50); Potassium 4.5 mmol/L (3.3-5.1); Sodium 146 mmol/L (135-145); Total Iron Binding Capacity 283 mcg/dL (228-428); Total Protein 7.4 g/dL (6.5-8.0); Triglycerides 126 mg/dL (<150); Unsaturated Iron Binding 219 ug/dL
[2023-11-24 12:08] LABS: Vitamin D 25-OH Total 27.5 ng/mL (>30)
[2023-11-24 12:26] LABS: Folate 9.1 ng/mL (> or = 4.0); Vitamin B12 652 pg/mL (200-900)
[2023-11-24 13:15] LABS: Estimated Glomerular Filt Rate 10; Hemoglobin 6.9 g/dl (12.0-16.0)
[2023-11-29 23:08] LABS: NT-proBNP 3166 pg/mL (<125)
== END 2023-11-24 10:10 | disposition home or self-care (01) ==
LOC: HO.LAB 10:09
PROVIDERS: Internal Medicine Nephrology; PCP Internal Medicine; Visit Provider Internal Medicine
DX: Z00.00 Encounter for general adult medical examination without abnormal findings (principal); D64.9 Anemia, unspecified; I50.22 Chronic systolic (congestive) heart failure; E78.5 Hyperlipidemia, unspecified; I42.9 Cardiomyopathy, unspecified; E55.9 Vitamin D deficiency, unspecified
CPT/HCPCS: 36415; 80053; 80061; 82306; 82607; 82746; 83540; 83880; 85025

== ENCOUNTER 2023-11-24 13:45 | Emergency (ER) | payer OTHER, SELFPAY ==
--- NOTE | 2023-11-24 13:48 | ED_ITS ---
HPI - General Adult General Chief complaint: General Medical Stated complaint: ? blood transfusion per pcp referral Time Seen by Provider: 11/24/23 15:59 Source: patient and family Mode of arrival: ambulatory Limitations: no limitations History of Present Illness HPI narrative: Patient comes to the emergency room accompanied by her daughter. According to the patient, patient is completely asymptomatic, states that she got a phone call from her primary care physician today to let her know that her hemoglobin is 6.9. Patient states that about a month ago, patient was diagnosed with bleeding hemorrhoids and had a very low hemoglobin down to 2.8. Patient was transfused. This has since she was discharged from the hospital, she has been feeling much better. Patient denies chest pain or shortness of breath, does not feel fatigue, denies any rectal bleeding or black stool, denies any recent external hemorrhoid issues. Related Data Previous Rx's Medication Instructions Recorded amlodipine 10 mg tablet 10 mg PO DAILY 90 days #90 tabs 08/02/23 carvedilol 3.125 mg tablet 3.125 mg PO BID #180 tabs 10/19/23 blood pressure monitor #1 11/10/23 hydrocortisone acetate 25 mg 25 mg OH BID 4 weeks #100 ea 11/13/23 rectal suppository omeprazole 20 mg capsule,delayed 20 mg PO DAILY #90 caps 11/13/23 release phenylephrine-shark liver 1 appl OH Q8H #57 grams 11/13/23 oil-mineral oil-petrolatum rectal ointment (Hemorrhoidal ointment) sitz bath #1 ea 11/13/23 sodium bicarbonate 650 mg tablet 1,300 mg (2 x 650 mg) PO TID #180 11/13/23 tabs hydrocortisone 2.5 % topical cream 1 appl OH BID-QID PRN hemorrhoids 11/14/23 with perineal applicator 30 days #30 grams (Proctosol HC) Grab bar #1 ea 11/22/23 Shower Chair #1 11/22/23 bed rail #1 11/22/23 hand held shower #1 11/22/23 pill box twice daily #1 ea 11/22/23 cholecalciferol (vitamin D3) 1,250 1,250 mcg PO QWEEK #14 caps 11/23/23 mcg (50,000 unit) capsule ferrous sulfate 325 mg (65 mg 325 mg PO BID 30 days #60 tabs 11/23/23 iron) tablet Allergies Allergy/AdvReac Type Severity Reaction Status Date / Time Penicillins Allergy Intermediate RASH Verified 11/24/23 14:01 Review of Systems 2 Review of Systems: Constitutional : No Weight loss, No Fever, No Chills, No Night Sweats, No Fatigue, No Malaise ENT/Mouth : No Hearing loss, No Ear Pain, No Nasal Congestion, No Sinus Pain, No Hoarseness, No sore throat, No Rhinorrhea, No Swallowing Difficulty Eyes: No Eye Pain, No Swelling, No Redness, No Foreign Body, No Discharge, No Vision Changes Cardiovascular : No Chest Pain, No SOB, No Dyspnea on Exertion, No Orthopnea, No Edema, No Palpitations Respiratory : No Cough, No Sputum, No Wheezing, No Smoke Exposure, No Dyspnea Gastrointestinal : No Nausea, No Vomiting, No Diarrhea, No Constipation, No abdominal Pain, No Hematochezia, No Melena Genitourinary : no irregular bleeding, No Dysuria, No Urinary Frequency, No Hematuria, No Urinary Incontinence, No Urgency, No Flank Pain, No Urinary Flow Changes, No Hesitancy Musculoskeletal : No joint pain, No Myalgias, No Joint Swelling Skin : No Skin Lesions, No rash Neuro : No Weakness, No Numbness, No Paresthesias, No Loss of Consciousness, No Dizziness, No Headache Psych : No Anxiety/Panic, No Depression, No SI/HI/AH/VH, No Social Issues, Heme/Lymph: No Bruising, No Bleeding,No Lymphadenopathy, complaining of low hemoglobin Endocrine : No Polyuria, No Polydipsia, No Temperature Intolerance [facility] Past Medical History Medical History CKD (chronic kidney disease) stage 5, GFR less than 15 ml/min Essential hypertension Normocytic anemia Surgical History History of surgery Status post dilation and curettage History of abdominal surgery History of extraction of renal calculus History of tubal ligation Family History Family History Father Throat cancer Mother Hypertension Daughter In good health Daughter In good health Sister In good health Family/Other Breast cancer Social History Social History Household Members: Children Housing: Apartment Do you presently have visiting nurse or other home services: Yes (visiting nurse) Alcohol intake: never Patient Tobacco Use Status: Never used Tobacco Tobacco use type: Cigarette Years Smoked: 30 +/- Smoked in Last 30 Days: No e-Cigarette/Vaping Use: Never Used Second Hand Smoke Exposure: No Use of substances other than those prescribed or required for medical reasons: No Advance Directives: No Patient : No service: No Current occupational status: unemployed Cognitive needs: No Hearing needs: No Vision needs: No Physical Exam ED Vital Signs: Vital Signs - 24 hr 11/24/23 14:01 Temperature 98.2 F Pulse Rate 95 Respiratory Rate 18 Blood Pressure 132/65 Pulse Oximetry 98 Oxygen Delivery Method Room Air BMI result Body Mass Index 31.9 Const Other: Appearance: Alert. Oriented X3. No acute distress. Eyes: Pupils equal, round and reactive to light. ENT: Pharynx normal. Neck: Normal inspection. Neck supple. No lymph nodes noted. No crepitus CVS: Normal heart rate and rhythm. Pulses normal. Normal S1 and S2 Respiratory: No respiratory distress. Breath sounds normal. No Wheezing. No rales Abdomen: Soft and nontender. No rigidity. No distention. Digital rectal exam shows maroon stool color, no external hemorrhoids Skin: Skin warm and dry. Mildly pale skin color. Normal skin turgor. Extremities: No lower extremity edema. No Lacerations. No Rash Neuro: Oriented X 3. No motor deficit. No sensory deficit. Moving all extremities. No slurred speech. CN 2 through 12 grossly intact Psych: calm, cooperative, normal affect Course Course Course Narrative: RME:?58 yo female hx of stage 5 CKD (not on hemodyalissi), HTN, chronic systolic congestive heart failure (EF 40-45%), chronic iron deficiency anemia here for eval of severe anemia. Had blood work this am and was contacted by on-call PCP for HgB of 6.9. Hct of 22.9. last transfused on 11/09/23- received 5 units. received expect from oncall PCP. patient has no complaints at present. denies fatigue, chest pain, SOB. denies melena, hematochezia, hematuria. Full HPI, ROS and PE to be performed by the primary ED provider. Medical Decision Making Medical Decision Making MDM Narrative: -my interpretation of labs: Patient's hemoglobin from the morning until the afternoon are stable, 6.9 and 7.0. -patient has history of bleeding hemorrhoids. On digital rectal exam the guaiac test was heme positive, likely from internal hemorrhoids. No bright red blood per rectum. -patient is asymptomatic, vitals are stable. -I discussed with the patient the benefits versus risks of a blood transfusion, patient states that she is agreeable for a blood transfusion since she has had multiple in the past. -patient signed the consent -at this time, 20:05, I was informed by the patient's nurse that the patient does not want to wait for the blood. We were able to get in touch with the blood bank, they still running specialized type and cross tests which will take at least 1 more hour. I informed the patient, patient states that she does not want to wait and states that she will return tomorrow. -I discussed with the patient the risk of leaving against medical advice given her current medical problems. Patient states that she feels well and if anything changes she will return. Patient states that tomorrow early in the morning if the line in the waiting room is not too long, she will chicken for blood transfusion -patient understands the risks of leaving against medical advice Differential Diagnosis Differential Diagnoses: The differential diagnosis associated with the presentation includes (Anemia, rectal bleeding, hemorrhoids, iron deficiency) Admission/Observation Consideration of admission/observation: Escalation of care including admission/observation considered (Given patient's labs and physical exam, presentation, admission and blood transfusion recommended. Patient leaving against medical advice) Lab Data [facility] Lab Attestation statement: I reviewed the patient's lab results. 11/24/23 15:37 11/24/23 15:37 Labs: Lab Results 11/24/23 11/24/23 11/24/23 Range/Units 15:37 16:18 16:51 WBC 5.7 (4.8-10.8) X10*3/uL RBC 2.76 L (4.20-5.50) X10*6/uL Hgb 7.0 L* (12.0-16.0) g/dl Hct 22.8 L (37.0-47.0) % MCV 82.6 (80.0-98.0) fL MCH 25.4 L (27.0-33.0) pg MCHC 30.7 L (31.0-35.0) g/dl RDW 23.6 H (11.0-16.0) % Plt Count 239 (160-400) X10*3/uL MPV 9.8 (9.4-12.3) fL Immature Gran % (Auto) 0.5 H (0.0-0.4) % Neut % (Auto) 64.1 (45-73) % Lymph % (Auto) 25.6 (20-40) % Davidson % (Auto) 7.8 (2-11) % Eos % (Auto) 1.6 (0-4) % Baso % (Auto) 0.4 (0-2) % Lymph # (Auto) 1.5 (1.2-4.9) X10*3/uL Davidson # (Auto) 0.4 (0.1-1.2) X10*3/uL Eos # (Auto) 0.1 (0.0-0.4) X10*3/uL Baso # (Auto) 0.0 (0.0-0.2) X10*3/uL Abs Immat Gran (auto) 0.03 (0.00-0.03) X10*3/uL Absolute Neuts (auto) 3.6 (2.0-8.3) x10*3/uL Absolute Nucleated RBC 0.000 (0.0-0.012) X10*3/uL Nucleated RBC % (auto) 0.0 (0.0-0.2) /100WBC PT 11.1 (11.1-13.3) SEC INR 0.9 (0.9-1.1) APTT 28.4 (26.0-36.8) SEC Sodium 143 (135-145) mmol/L Potassium 4.3 (3.3-5.1) mmol/L Chloride 113 H (96-108) mmol/L Carbon Dioxide 18 L (22-29) mmol/L Anion Gap 16 (12-20) BUN 56 H (9-16) mg/dL Creatinine 4.79 H* (0.5-1.4) mg/dL Estim Creat Clear Calc 13.9 Estimated GFR 9 Random Glucose 97 (60-115) mg/dL Calcium 8.4 (8.4-10.2) mg/dL Total Bilirubin 0.3 (0.0-1.0) mg/dL AST 21 (5-31) U/L ALT 23 (0-31) U/L Alkaline Phosphatase 129 H (39-117) U/L Total Protein 7.7 (6.5-8.0) g/dL Albumin 3.7 (3.5-5.0) g/dL Stool Occult Blood POSITIVE (NEGATIVE) Blood Type A Positive Antibody Screen POSITIVE Crossmatch See Detail Critical Care Time Critical Care Time Critical Care Time: Yes Total Critical Care Time: 45 Attestation: I have personally provided critical care time. Time includes review of lab data, radiology results, discussion with consultants, and monitoring for potential decompensation. Intervention performed as documented. Discharge Plan Discharge Clinical Impression: Anemia, Acute GI bleeding Patient Disposition: Left Against Medical Advice Instructions: Anemia (ED) Additional Instructions: Please follow-up with your primary care physician tomorrow. If you have any worsening or new symptoms, please return to the emergency room or call 911 Prescriptions: No Action amlodipine 10 mg tablet 10 mg PO DAILY 90 Days Qty: 90 0RF carvedilol 3.125 mg tablet 3.125 mg PO BID Qty: 180 3RF ([facility]) blood pressure monitor Kit See Rx Instructions .Route Qty: 1 0RF Rx Instructions: As directed hydrocortisone [Proctosol HC] 2.5 % cream with perineal applicator 1 appl OH BID-QID PRN (Reason: hemorrhoids) 30 Days Qty: 30 0RF sodium bicarbonate 650 mg Tablet 1,300 mg PO TID Qty: 180 2RF omeprazole 20 mg capsule,delayed release(DR/EC) 20 mg PO DAILY Qty: 90 0RF (DME) sitz bath Kit See Rx Instructions .Route Qty: 1 0RF Rx Instructions: As directed hydrocortisone acetate 25 mg suppository 25 mg OH BID 28 Days Qty: 100 0RF Hemorrhoidal Ointment 1 appl OH Q8H Qty: 57 0RF (DME) bed rail See Rx Instructions .Route .MEDSUPPLY Qty: 1 0RF Rx Instructions: As directed (DME) hand held shower See Rx Instructions .Route .MEDSUPPLY Qty: 1 0RF Rx Instructions: As directed ([facility]) Grab bar Misc See Rx Instructions .Route Qty: 1 0RF Rx Instructions: As directed (DME) pill box twice daily See Rx Instructions .Route .MEDSUPPLY Qty: 1 0RF Rx Instructions: As directed (DME) Shower Chair Misc See Rx Instructions .Route Qty: 1 0RF Rx Instructions: with back cholecalciferol (vitamin D3) 1,250 mcg (50,000 unit) capsule 1,250 mcg PO QWEEK Qty: 14 0RF ferrous sulfate 325 mg (65 mg iron) tablet 325 mg PO BID 30 Days Qty: 60 3RF
[2023-11-24 14:01] VITALS: BP 132/65; PULSE 95; RESP 18; TEMP 36.8; O2SAT 98; BMI 31.9
[2023-11-24 15:41] LABS: MANUAL DIFF FLAG NO
[2023-11-24 15:42] LABS: Basophils Percent Auto 0.4 % (0-2); Eosinophils Absolute Auto 0.1 X10*3/uL (0.0-0.4); Eosinophils Percent Auto 1.6 % (0-4); Hematocrit 22.8 % (37.0-47.0); Imm Gran Abs Auto 0.03 X10*3/uL (0.00-0.03); Imm Gran Pct Auto 0.5 % (0.0-0.4); Lymphocytes Absolute Auto 1.5 X10*3/uL (1.2-4.9); Lymphocytes Percent Auto 25.6 % (20-40); Mean Corpuscular HGB Conc 30.7 g/dl (31.0-35.0); Mean Corpuscular Hemoglobin 25.4 pg (27.0-33.0); Mean Corpuscular Volume 82.6 fL (80.0-98.0); Mean Platelet Volume 9.8 fL (9.4-12.3); Monocytes Absolute Auto 0.4 X10*3/uL (0.1-1.2); Monocytes Percent Auto 7.8 % (2-11); Neutrophils Absolute Auto 3.6 x10*3/uL (2.0-8.3); Neutrophils Percent Auto 64.1 % (45-73); Platelet Count 239 X10*3/uL (160-400); Red Blood Count 2.76 X10*6/uL (4.20-5.50); Red Cell Distribution Width 23.6 % (11.0-16.0); White Blood Count 5.7 X10*3/uL (4.8-10.8)
[2023-11-24 16:02] LABS: Alanine Aminotransferase 23 U/L (0-31); Albumin Level 3.7 g/dL (3.5-5.0); Alkaline Phosphatase 129 U/L (39-117); Anion Gap 16 (12-20); Aspartate Amino Transferase 21 U/L (5-31); Bilirubin Total 0.3 mg/dL (0.0-1.0); Blood Urea Nitrogen 56 mg/dL (9-16); Calcium 8.4 mg/dL (8.4-10.2); Carbon Dioxide 18 mmol/L (22-29); Chloride 113 mmol/L (96-108); Creatinine Clr Calc Pharmacy 13.9; Estimated Glomerular Filt Rate 9; Glucose Random 97 mg/dL (60-115); Potassium 4.3 mmol/L (3.3-5.1); Sodium 143 mmol/L (135-145); Total Protein 7.7 g/dL (6.5-8.0)
[2023-11-24 16:40] LABS: INTERNATIONAL NORM RATIO 0.9 (0.9-1.1); Prothrombin Time 11.1 SEC (11.1-13.3)
[2023-11-24 16:43] LABS: Partial Thromboplastin Time 28.4 SEC (26.0-36.8)
[2023-11-24 17:02] LABS: OBS Int Ctl Valid YES; OBS1 POSITIVE (NEGATIVE)
[2023-11-24 20:00] VITALS: BP 148/84; PULSE 100; RESP 18; TEMP 37; O2SAT 100
--- NOTE | 2023-11-24 20:02 | PC.NURSE ---
per blood bank, delay in blood product d/t antibody testing, pt unwilling to wait any longer, requesting to leave AMA, provider notified, IV pulled.
[2023-11-24 20:14] VITALS: BP 148/84; PULSE 100; RESP 18; TEMP 37; O2SAT 100
--- NOTE | 2023-11-24 20:14 | PC.NURSE ---
MEGAN paperwork signed by
== END 2023-11-24 20:15 | disposition left against medical advice (07) ==
PROVIDERS: Physician Assistant Medical; Emergency Provider Emergency Medicine; PCP Internal Medicine
DX: K92.2 Gastrointestinal hemorrhage, unspecified (principal); D64.9 Anemia, unspecified; Z79.899 Other long term (current) drug therapy
CPT/HCPCS: 36415; 80053; 82272; 85025; 85610; 85730; 86850; 86870; 86900; 86901; 86920; 86922; 99284

== ENCOUNTER 2023-12-07 09:43 | Outpatient (AMB) | payer OTHER, SELFPAY ==
--- NOTE | 2023-12-07 09:49 | HO.NEPHOV ---
HPI HPI Comments History of Present Illness Details 58-year-old woman with stage 5 chronic kidney disease without hemodialysis initiation yet, along with uncontrolled hypertension, chronic systolic congestive heart failure (ejection fraction 40-45% as of December 2022), and chronic iron deficiency anemia who despite medical recommendations, had declined colonoscopy with non-adherence to medications and follow-up appointments, presented to ER recently with symptoms include weakness, shortness of breath, and chest pain . She denies melena at that time. Emergency department findings reveal a hemoglobin level of 4.2 and hematocrit of 14, with negative occult blood and troponin tests. ECG shows no acute ischemic changes. Creatinine levels at that time was 5.76 with CO2 of 13. She required total of 5 units transfusion with improvement of Hb on day of discharge to 8.4. She was kept on IV Pantoprazole as she was evaluated by Dr Singh from GI who did EGD and Colonoscopy which showed mild esophagitis along with internal and external hemorrhoids. She needs repeat Colonoscopy in 6 months as preperation was not optimal. She was started on omeprazole for Esophagitis. She was started on Sodium Bicab for Metabolic acidosis. She is seen today in follow up. She denies uremic symptoms. . [facility] Medical History (Updated 12/07/23 @ 09:51 by Danis Betancur MD) CKD (chronic kidney disease) stage 5, GFR less than 15 ml/min Anemia CKD (chronic kidney disease) Chronic systolic (congestive) heart failure Cardiomyopathy Essential hypertension Normocytic anemia Surgical History History of surgery Status post dilation and curettage History of abdominal surgery History of extraction of renal calculus History of tubal ligation Family History Father Throat cancer Mother Hypertension Daughter In good health Daughter In good health Sister In good health Family/Other Breast cancer Social History Household Members: Children Housing: Apartment Do you presently have visiting nurse or other home services: Yes (visiting nurse) Alcohol intake: never Patient Tobacco Use Status: Never used Tobacco Tobacco use type: Cigarette Years Smoked: 30 +/- e-Cigarette/Vaping Use: Never Used Second Hand Smoke Exposure: No service: No Current occupational status: unemployed Cognitive needs: No Hearing needs: No Vision needs: No Vital Signs 12/07/23 09:51 Height 5 ft 5 in Weight 193 lb 4 oz BMI 32.2 BP 112/80 Blood Pressure Location Lt brachial Position Sitting Pulse 53 Pulse Source Pulse Oximeter Pulse Oximetry (%) 100 Oxygen Delivery Method Room Air Physical Exam Const General: comfortable and no acute distress Orientation/consciousness: patient oriented x3 HEENT Head: Yes normocephalic Mouth: Normal oral and palatal mucosa present Eyes EOM: EOMs intact bilaterally Neck Neck: Yes supple Resp Auscultation: clear to auscultation bilaterally Cardio Jugular venous distension: no JVD Rate: regular rate GI Palpation (GI): Soft to palpation Auscultation: normal bowel sounds General: Yes no CVA tenderness Back/Spine/Pelvis Back: no CVA tenderness Skin General skin exam: no rashes or lesions noted Neuro General: patient oriented x3 and moves all extremities Extrem General: Yes no pedal edema Assessment & Plan Assessment & Plan (1) Secondary hyperparathyroidism (of renal origin): Code(s): N25.81 - Secondary hyperparathyroidism of renal origin (2) Iron deficiency: Code(s): E61.1 - Iron deficiency (3) Anemia in chronic kidney disease (CKD): Code(s): N18.9 - Chronic kidney disease, unspecified; D63.1 - Anemia in chronic kidney disease Qualifiers: Chronic kidney disease stage: stage 5, not on chronic dialysis Qualified Code(s): N18.5 - Chronic kidney disease, stage 5; D63.1 - Anemia in chronic kidney disease (4) CKD (chronic kidney disease) stage 5, GFR less than 15 ml/min: Code(s): N18.5 - Chronic kidney disease, stage 5 Plan 58-year-old woman with advanced renal failure approaching end stage renal disease. Renal functions close to baseline. No overt signs or symptoms of uremia or fluid overload No absolute indication for dialysis yet. 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 On Ferrous sulphate ; On p.o. bicarbonate to correct acidosis; Refilled VItamin D; Will need HD access and transplant referral F/U 2 weeks for Procrit injection. Labs will be ordered at next visit Medications: Refilled cholecalciferol (vitamin D3) 1,250 mcg PO QWEEK 14 caps 0RF Coding Level of Care Code Est Pt Level 4 (57364) Diagnoses Secondary hyperparathyroidism (of renal origin) N25.81 Iron deficiency E61.1 Anemia in stage 5 chronic kidney disease, not on chronic dialysis N18.5; D63.1 Chronic kidney disease stage: stage 5, not on chronic dialysis CKD (chronic kidney disease) stage 5, GFR less than 15 ml/min N18.5 Results Reviewed Nephrology Results: Hgb 7.0 g/dl (12.0-16.0) L* 11/24/23 WBC 5.7 X10*3/uL (4.8-10.8) 11/24/23 Plt Count 239 X10*3/uL (160-400) 11/24/23 Sodium 143 mmol/L (135-145) 11/24/23 Potassium 4.3 mmol/L (3.3-5.1) 11/24/23 Chloride 113 mmol/L (96-108) H 11/24/23 Carbon Dioxide 18 mmol/L (22-29) L 11/24/23 BUN 56 mg/dL (9-16) H 11/24/23 Creatinine 4.79 mg/dL (0.5-1.4) H* 11/24/23 Calcium 8.4 mg/dL (8.4-10.2) 11/24/23 Phosphorus 6.1 mg/dL (2.7-4.5) H 11/10/23 PTH Intact 732.8 pg/mL (8.7-77.1) H 11/10/23 Urine Protein 100 (2+) mg/dL (Neg-Trace) H 11/09/23
[2023-12-07 09:51] VITALS: BP 112/80; PULSE 53; O2SAT 100; BMI 32.2
== END 2023-12-07 10:19 | disposition home or self-care (01) ==
PROVIDERS: PCP Internal Medicine; Visit Provider Internal Medicine Nephrology
DX: N25.81 Secondary hyperparathyroidism of renal origin (principal); E61.1 Iron deficiency; N18.5 Chronic kidney disease, stage 5; D63.1 Anemia in chronic kidney disease
CPT/HCPCS: 99214

== ENCOUNTER → 2023-12-07 09:43 | Outpatient (BNVA) | payer OTHER, SELFPAY | PROVIDERS: PCP Internal Medicine; Visit Provider Internal Medicine Nephrology | DX: N25.81 Secondary hyperparathyroidism of renal origin (principal); E61.1 Iron deficiency; N18.5 Chronic kidney disease, stage 5; D63.1 Anemia in chronic kidney disease | CPT/HCPCS: 99212 ==

== ENCOUNTER 2023-12-21 11:31 | Outpatient (AMB) | payer OTHER, SELFPAY ==
--- NOTE | 2023-12-21 11:32 | HO.NEPHOV ---
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 She denies melena at that time. Emergency department findings reveal a hemoglobin level of 4.2 and hematocrit of 14, with negative occult blood and troponin tests. ECG shows no acute ischemic changes. Creatinine levels at that time was 5.76 with CO2 of 13. She required total of 5 units transfusion with improvement of Hb on day of discharge to 8.4. She was kept on IV Pantoprazole as she was evaluated by Dr Singh from GI who did EGD and Colonoscopy which showed mild esophagitis along with internal and external hemorrhoids. She needs repeat Colonoscopy in 6 months as preperation was not optimal. She was started on omeprazole for Esophagitis. She was started on Sodium Bicab for Metabolic acidosis. She is seen today in follow up. She denies uremic symptoms. [facility] Medical History (Updated 12/10/23 @ 11:17 by Britt De MD) CKD (chronic kidney disease) stage 5, GFR less than 15 ml/min Anemia CKD (chronic kidney disease) Chronic systolic (congestive) heart failure Cardiomyopathy Essential hypertension Normocytic anemia Surgical History History of surgery Status post dilation and curettage History of abdominal surgery History of extraction of renal calculus History of tubal ligation Family History Father Throat cancer Mother Hypertension Daughter In good health Daughter In good health Sister In good health Family/Other Breast cancer Social History Household Members: Children Housing: Apartment Do you presently have visiting nurse or other home services: Yes (visiting nurse) Alcohol intake: never Patient Tobacco Use Status: Never used Tobacco Tobacco use type: Cigarette Years Smoked: 30 +/- e-Cigarette/Vaping Use: Never Used Second Hand Smoke Exposure: No service: No Current occupational status: unemployed Cognitive needs: No Hearing needs: No Vision needs: No Physical Exam Vital Signs: Last Vital Signs Pulse 85 12/21/23 11:33 BP 110/72 12/21/23 11:33 Pulse Ox 98 12/21/23 11:33 Oxygen Delivery Method Room Air 12/21/23 11:33 BMI result Body Mass Index 31.6 Const General: comfortable and no acute distress Orientation/consciousness: patient oriented x3 HEENT Head: Yes normocephalic Mouth: Normal oral and palatal mucosa present Eyes EOM: EOMs intact bilaterally Neck Neck: Yes supple Resp Auscultation: clear to auscultation bilaterally Cardio Jugular venous distension: no JVD Rate: regular rate GI Palpation (GI): Soft to palpation Auscultation: normal bowel sounds General: Yes no CVA tenderness Back/Spine/Pelvis Back: no CVA tenderness Skin General skin exam: no rashes or lesions noted Neuro General: patient oriented x3 and moves all extremities Extrem General: Yes no pedal edema Office Meds epoetin tian-epbx 10,000 unit/mL injection solution Performing Provider: Danis Betancur MD Performing Location[place] [facility] [place] [facility] Administered by: Danis Betancur MD on 12/21/23 12:02 Dose Route Admin Location Dispensed Lot Number Expiration Date [facility] [place]NOTE 2] 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,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 unit subcut LUE 2 mL [id number] 04/03/26 7132-8783-41 [employer] Results Reviewed Nephrology Results: Hgb 7.0 g/dl (12.0-16.0) L* 11/24/23 WBC 5.7 X10*3/uL (4.8-10.8) 11/24/23 Plt Count 239 X10*3/uL (160-400) 11/24/23 Sodium 143 mmol/L (135-145) 11/24/23 Potassium 4.3 mmol/L (3.3-5.1) 11/24/23 Chloride 113 mmol/L (96-108) H 11/24/23 Carbon Dioxide 18 mmol/L (22-29) L 11/24/23 BUN 56 mg/dL (9-16) H 11/24/23 Creatinine 4.79 mg/dL (0.5-1.4) H* 11/24/23 Calcium 8.4 mg/dL (8.4-10.2) 11/24/23 Phosphorus 6.1 mg/dL (2.7-4.5) H 11/10/23 PTH Intact 732.8 pg/mL (8.7-77.1) H 11/10/23 Urine Protein 100 (2+) mg/dL (Neg-Trace) H 11/09/23 Assessment & Plan Assessment & Plan (1) CKD (chronic kidney disease) stage 5, GFR less than 15 ml/min: Code(s): N18.5 - Chronic kidney disease, stage 5 Category: Medical (2) Secondary hyperparathyroidism (of renal origin): Code(s): N25.81 - Secondary hyperparathyroidism of renal origin Category: Medical (3) Anemia in chronic kidney disease (CKD): Code(s): N18.9 - Chronic kidney disease, unspecified; D63.1 - Anemia in chronic kidney disease Category: Medical Qualifiers: Chronic kidney disease stage: stage 5, not on chronic dialysis Qualified Code(s): N18.5 - Chronic kidney disease, stage 5; D63.1 - Anemia in chronic kidney disease Plan 58-year-old woman with advanced renal failure approaching end stage renal disease. Renal functions close to baseline. No overt signs or symptoms of uremia or fluid overload No absolute indication for dialysis yet. 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 On Ferrous sulphate ; On p.o. bicarbonate to correct acidosis; In Vitamin D; Will need HD access and transplant referral Administered [id number] U Procrit injection S/C LUE . Labs ordered for next visit; Daughter present during the visit; Answered all questions Orders: Orders Complete Blood Count Auto Diff Today D63.1 - Anemia in chronic kidney disease, N18.5 - Chronic kidney disease, stage 5, N25.81 - Secondary hyperparathyroidism of renal origin Blood Urea Nitrogen Today D63.1 - Anemia in chronic kidney disease, N18.5 - Chronic kidney disease, stage 5, N25.81 - Secondary hyperparathyroidism of renal origin [facility] E[facility] Injection Practice Supplied Today D63.1 - Anemia in chronic kidney disease, N18.5 - Chronic kidney disease, stage 5 Ferritin Today D63.1 - Anemia in chronic kidney disease, N18.5 - Chronic kidney disease, stage 5, N25.81 - Secondary hyperparathyroidism of renal origin IRON PROFILE Today D63.1 - Anemia in chronic kidney disease, N18.5 - Chronic kidney disease, stage 5, N25.81 - Secondary hyperparathyroidism of renal origin Creatinine Today D63.1 - Anemia in chronic kidney disease, N18.5 - Chronic kidney disease, stage 5, N25.81 - Secondary hyperparathyroidism of renal origin Electrolytes Today D63.1 - Anemia in chronic kidney disease, N18.5 - Chronic kidney disease, stage 5, N25.81 - Secondary hyperparathyroidism of renal origin
[2023-12-21 11:33] VITALS: BP 110/72; PULSE 85; O2SAT 98; BMI 31.6
== END 2023-12-21 12:00 | disposition home or self-care (01) ==
PROVIDERS: PCP Internal Medicine; Visit Provider Internal Medicine Nephrology
DX: N18.5 Chronic kidney disease, stage 5 (principal); N25.81 Secondary hyperparathyroidism of renal origin; D63.1 Anemia in chronic kidney disease
CPT/HCPCS: 99214

== ENCOUNTER → 2023-12-21 11:31 | Outpatient (BNVA) | payer OTHER, SELFPAY | PROVIDERS: PCP Internal Medicine; Visit Provider Internal Medicine Nephrology | DX: N18.5 Chronic kidney disease, stage 5 (principal); N25.81 Secondary hyperparathyroidism of renal origin; D63.1 Anemia in chronic kidney disease | CPT/HCPCS: 96372; 99212; Q5106 ==

== ENCOUNTER 2024-01-02 09:48 | Outpatient (REF) | payer OTHER, SELFPAY ==
[2024-01-02 10:06] LABS: MANUAL DIFF FLAG NO
[2024-01-02 10:56] LABS: Eosinophils Absolute Auto 0.2 X10*3/uL (0.0-0.4); Hematocrit 30.9 % (37.0-47.0); Hemoglobin 9.9 g/dl (12.0-16.0); Mean Corpuscular Volume 86.8 fL (80.0-98.0); Platelet Count 253 X10*3/uL (160-400); Red Blood Count 3.56 X10*6/uL (4.20-5.50); White Blood Count 5.4 X10*3/uL (4.8-10.8)
[2024-01-02 11:52] LABS: Anion Gap 18 (12-20); Carbon Dioxide 16 mmol/L (22-29); Chloride 112 mmol/L (96-108); Estimated Glomerular Filt Rate 8; Iron 21 mcg/dL (30-160); Potassium 4.2 mmol/L (3.3-5.1); Sodium 142 mmol/L (135-145); Total Iron Binding Capacity 303 mcg/dL (228-428)
== END 2024-01-02 09:49 | disposition home or self-care (01) ==
LOC: HO.LAB 09:48
PROVIDERS: PCP Internal Medicine; Visit Provider Internal Medicine Nephrology
DX: N18.5 Chronic kidney disease, stage 5 (principal); N25.81 Secondary hyperparathyroidism of renal origin; D63.1 Anemia in chronic kidney disease; N18.9 Chronic kidney disease, unspecified
CPT/HCPCS: 36415; 80051; 82565; 82728; 83540; 84520; 85025

== ENCOUNTER 2024-01-04 11:54 | Outpatient (AMB) | payer OTHER, SELFPAY ==
[2024-01-04 11:55] VITALS: BP 120/70; PULSE 93; O2SAT 97; BMI 32.0
--- NOTE | 2024-01-04 11:55 | HO.NEPHOV_ITS ---
Vital Signs 01/04/24 11:55 Height 5 ft 5 in Weight 192 lb 8 oz BMI 32.0 BP 120/70 Blood Pressure Location Rt brachial Pulse 93 Pulse Source Pulse Oximeter Pulse Oximetry (%) 97 Oxygen Delivery Method Room Air Intake Visit Reasons: Anemia in chronic kidney disease/ 2 weeks fu Playground Director Required: Yes Playground Director Name: Britney Jiménez Accompanied by: Daughter Allergies Penicillins Allergy (Intermediate, Verified 01/04/24 11:57) RASH HPI Comments Details: 58-year-old woman with stage 5 chronic kidney disease without hemodialysis initiation yet, along with uncontrolled hypertension, chronic systolic congestive heart failure (ejection fraction 40-45% as of December 2022), and chronic iron deficiency anemia who despite medical recommendations, had declined colonoscopy with non-adherence to medications and follow-up appointments, presented to ER recently with symptoms include weakness, shortness of breath, and chest pain . She denies melena at that time. Emergency department findings reveal a hemoglobin level of 4.2 and hematocrit of 14, with negative occult blood and troponin tests. ECG shows no acute ischemic changes. Creatinine levels at that time was 5.76 with CO2 of 13. She required total of 5 units transfusion with improvement of Hb on day of discharge to 8.4. She was kept on IV Pantoprazole as she was evaluated by Dr Singh from GI who did EGD and Colonoscopy which showed mild esophagitis along with internal and external hemorrhoids. She needs repeat Colonoscopy in 6 months as preperation was not optimal. She was started on omeprazole for Esophagitis. She was started on Sodium Bicab for Metabolic acidosis. She is seen today in follow up. She denies uremic symptoms. Her Hb is improving with Procrit. She wants her abdominal hernia taken care of. [facility] Medical History (Updated 01/04/24 @ 12:21 by Danis Betancur MD) CKD (chronic kidney disease) stage 5, GFR less than 15 ml/min Anemia CKD (chronic kidney disease) Chronic systolic (congestive) heart failure Cardiomyopathy Essential hypertension Normocytic anemia Surgical History History of surgery Status post dilation and curettage History of abdominal surgery History of extraction of renal calculus History of tubal ligation Family History Father Throat cancer Mother Hypertension Daughter In good health Daughter In good health Sister In good health Family/Other Breast cancer Social History Household Members: Children Housing: Apartment Do you presently have visiting nurse or other home services: Yes (visiting nurse) Alcohol intake: never Patient Tobacco Use Status: Never used Tobacco Tobacco use type: Cigarette Years Smoked: 30 +/- e-Cigarette/Vaping Use: Never Used Second Hand Smoke Exposure: No service: No Current occupational status: unemployed Cognitive needs: No Hearing needs: No Vision needs: No Physical Exam Vital Signs: Last Vital Signs Pulse 93 01/04/24 11:55 BP 120/70 01/04/24 11:55 Pulse Ox 97 01/04/24 11:55 Oxygen Delivery Method Room Air 01/04/24 11:55 BMI result Body Mass Index 32.0 Extrem General: Yes edema Office Meds epoetin tian-epbx 10,000 unit/mL injection solution Performing Provider: Danis Betancur MD Per[place] Location[place] [facility] [place] [facility] [facility] Administered by: Danis Betancur MD on 01/04/24 12:18 Dose Route Admin Location Dispensed Lot Number Expiration Date [facility] Communication Studies Professor 20,000 unit subcut 2 mL [id number] 08/03/25 6210-8414-24 [employer] Results Reviewed Nephrology Results: Hgb 9.9 g/dl (12.0-16.0) L 01/02/24 WBC 5.4 X10*3/uL (4.8-10.8) 01/02/24 Plt Count 253 X10*3/uL (160-400) 01/02/24 Sodium 142 mmol/L (135-145) 01/02/24 Potassium 4.2 mmol/L (3.3-5.1) 01/02/24 Chloride 112 mmol/L (96-108) H 01/02/24 Carbon Dioxide 16 mmol/L (22-29) L 01/02/24 BUN 66 mg/dL (9-16) H 01/02/24 Creatinine 5.45 mg/dL (0.5-1.4) H* 01/02/24 Calcium 8.4 mg/dL (8.4-10.2) 11/24/23 Assessment & Plan Assessment & Plan (1) CKD (chronic kidney disease) stage 5, GFR less than 15 ml/min: Code(s): N18.5 - Chronic kidney disease, stage 5 Category: Medical (2) Secondary hyperparathyroidism (of renal origin): Code(s): N25.81 - Secondary hyperparathyroidism of renal origin Category: Medical (3) Iron deficiency: Code(s): E61.1 - Iron deficiency Category: Medical (4) Anemia in chronic kidney disease (CKD): Code(s): N18.9 - Chronic kidney disease, unspecified; D63.1 - Anemia in chronic kidney disease Category: Medical Qualifiers: Chronic kidney disease stage: stage 5, not on chronic dialysis Qualified Code(s): N18.5 - Chronic kidney disease, stage 5; D63.1 - Anemia in chronic kidney disease (5) Hernia: Code(s): K46.9 - Unspecified abdominal hernia without obstruction or gangrene Category: Medical Plan 58-year-old woman with advanced renal failure approaching end stage renal disease. Renal functions marginally worse . No overt signs or symptoms of uremia No absolute indication for dialysis yet. 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 On Ferrous sulphate ; On p.o. bicarbonate to correct acidosis; In Vitamin D; Will need HD access and transplant referral- doesn't want it now; Administered [id number] U Procrit injection S/C LUE . Labs- pt doesnt want it next visit; Daughter present during the visit; Answered all questions; Referred her for abdominal hernia repair Orders: Orders [facility]B Epoetin Injection Practice Supplied Today D63.1 - Anemia in chronic kidney disease, N18.5 - Chronic kidney disease, stage 5 Referrals General Surgery Referral K46.9 - Unspecified abdominal hernia without obstruction or gangrene Medications: Changed From amlodipine 10 mg PO DAILY 90 days 90 tabs 0RF I10 - Essential (primary) hypertension To amlodipine 5 mg PO DAILY 90 days 90 tabs 1RF I10 - Essential (primary) hypertension Coding Level of Care Code Est Pt Level 4 (65933) Diagnoses CKD (chronic kidney disease) stage 5, GFR less than 15 ml/min N18.5 Secondary hyperparathyroidism (of renal origin) N25.81 Iron deficiency E61.1 Anemia in stage 5 chronic kidney disease, not on chronic dialysis N18.5; D63.1 Chronic kidney disease stage: stage 5, not on chronic dialysis Hernia K46.9
== END 2024-01-04 12:26 | disposition home or self-care (01) ==
LOC: HO.HKA 11:54
PROVIDERS: PCP Internal Medicine; Visit Provider Internal Medicine Nephrology
DX: N18.5 Chronic kidney disease, stage 5 (principal); N25.81 Secondary hyperparathyroidism of renal origin; E61.1 Iron deficiency; D63.1 Anemia in chronic kidney disease; K46.9 Unspecified abdominal hernia without obstruction or gangrene
CPT/HCPCS: 99214

== ENCOUNTER → 2024-01-04 11:54 | Outpatient (BNVA) | payer OTHER, SELFPAY | PROVIDERS: PCP Internal Medicine; Visit Provider Internal Medicine Nephrology | DX: N18.5 Chronic kidney disease, stage 5 (principal); D63.1 Anemia in chronic kidney disease; N25.81 Secondary hyperparathyroidism of renal origin; E61.1 Iron deficiency; K64.9 Unspecified hemorrhoids | CPT/HCPCS: 96372; 99212; Q5106 ==

== ENCOUNTER 2024-01-08 09:40 | Outpatient (AMB) | payer OTHER, SELFPAY ==
--- NOTE | 2024-01-08 09:42 | MHC.OFFVIS ---
Vital Signs 01/08/24 09:43 Height 5 ft 5 in Weight 192 lb BMI 31.9 Intake Visit Reasons: Chronic kidney disease, stage 5 Intake Note: referral for AVF placement for CKD 5, not on dialysis as of yet. Multimedia Author Required: Yes Multimedia Author Language: [employer] Member Name: [id number] Johnson Information Interpreted: clinical only Allergies Penicillins Allergy (Intermediate, Verified 01/08/24 09:53) RASH HPI HPI Chronic kidney disease, stage 5: Details: Complex 58-year-old female patient presents for chronic renal insufficiency and potential dialysis access. 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 Patient denies any previous fistular graft placement Expected time to dialysis is less than 6 months or is currently on dialysis Hand dominance right Patient now presents for evaluation of permanent dialysis access [facility] Medical History CKD (chronic kidney disease) stage 5, GFR less than 15 ml/min Anemia CKD (chronic kidney disease) Chronic systolic (congestive) heart failure Cardiomyopathy Essential hypertension Normocytic anemia Surgical History History of surgery Status post dilation and curettage History of abdominal surgery History of extraction of renal calculus History of tubal ligation Family History Father Throat cancer Mother Hypertension Daughter In good health Daughter In good health Sister In good health Family/Other Breast cancer Social History Household Members: Children Housing: Apartment Do you presently have visiting nurse or other home services: Yes (visiting nurse) Alcohol intake: never Patient Tobacco Use Status: Never used Tobacco Tobacco use type: Cigarette Years Smoked: 30 +/- e-Cigarette/Vaping Use: Never Used Second Hand Smoke Exposure: No service: No Current occupational status: unemployed Cognitive needs: No Hearing needs: No Vision needs: No Review of Systems Const All systems reviewed & are unremarkable except as noted in HPI and below Reports no additional complaints ENT Reports Normal hearing present Card Denies chest pain, Denies chest pain at rest, Denies chest pain with activity and Denies pedal edema Resp Denies cough GI Denies abdominal pain Musc Denies abnormal gait, Denies muscle cramps and Denies radiating pain into limb Skin/Breast Denies skin ulcer and Denies wounds Neuro Reports Normal hearing present and Denies abnormal gait Psych Reports no additional complaints Physical Exam Vital Signs: BMI result Body Mass Index 31.9 Const General: cooperative, healthy appearing and comfortable Orientation/consciousness: oriented to person, oriented to place and oriented to time HEENT Head: Yes normal to inspection Neck Neck: Yes normal visual inspection Carotids: no bruits Chest Chest palpation & inspection: normal inspection of the chest Resp Effort & Inspection: normal respiratory effort and able to speak in complete sentences Auscultation: clear to auscultation bilaterally, no crackles, no rales, no rhonchi and no wheezes Cardio Other: Palpable brachial radial ulnar pulses Rate: regular rate Rhythm: regular rhythm Heart sounds: S1 normal heart sound present and S2 normal heart sound present Bruits: no carotid bruits Peripheral pulses: Peripheral pulses 2+ throughout GI Inspection: Yes normal to inspection Skin Wounds: no wounds Hair: normal Neuro General: oriented to person, oriented to place and oriented to time Cranial nerves: Yes CN's II-XII intact bilaterally and Yes Normal hearing present Cognition (Neuro): normal cognition Motor exam (neuro): 5/5 motor strength present throughout Extrem Other: venous exam: No dilated central veins Bedside ultrasound demonstrated small caliber cephalic and basilic veins General: No clubbing, No cyanosis and No edema Psych Appearance: grossly normal Mental Status: mental status grossly normal Speech and movement: Normal speech and movement present Assessment & Plan Assessment & Plan (1) CKD (chronic kidney disease) stage 5, GFR less than 15 ml/min: Code(s): N18.5 - Chronic kidney disease, stage 5 Category: Medical Plan: In short patient has chronic renal insufficiency and is headed towards dialysis. She will require fistula creation. I did discuss risks benefits and complications of the procedure. Patient unfortunately refused. I did have an extensive discussion with the patient and daughter at bedside. Daughter did state that she is interested in moving forward but mother is quite hesitant. I did offer the opportunity to just get an ultrasound to anticipate future dialysis and she could have a discussion with Nephrology. Patient did refuse. I did state that we would be available should she change her mind. Case was discussed with the nephrology team. She will follow up with us on an as-needed basis. Thank you for allowing us to assist in her care. If there are any questions or concerns please do not hesitate to contact us. Coding Level of Care Code New Pt Level 4 (45807) Diagnoses CKD (chronic kidney disease) stage 5, GFR less than 15 ml/min N18.5
[2024-01-08 09:43] VITALS: BMI 31.9
== END 2024-01-08 10:19 | disposition home or self-care (01) ==
PROVIDERS: PCP Internal Medicine; Visit Provider Surgery Vascular Surgery
DX: N18.5 Chronic kidney disease, stage 5 (principal)
CPT/HCPCS: 99204

== ENCOUNTER → 2024-01-08 09:40 | Outpatient (BNVA) | payer OTHER, SELFPAY | PROVIDERS: PCP Internal Medicine; Visit Provider Surgery Vascular Surgery | DX: N18.5 Chronic kidney disease, stage 5 (principal) | CPT/HCPCS: 99202 ==

== ENCOUNTER 2024-01-24 10:01 | Outpatient (REF) | payer OTHER, SELFPAY | END 2024-01-24 10:02 | disposition home or self-care (01) | LOC: HO.MAMMO 10:01 | PROVIDERS: PCP Internal Medicine; Visit Provider Internal Medicine | DX: Z12.31 Encounter for screening mammogram for malignant neoplasm of breast (principal) | CPT/HCPCS: 77063; 77067 ==

== ENCOUNTER → 2024-01-24 10:15 | Outpatient (BNV) | payer OTHER, SELFPAY | PROVIDERS: PCP Internal Medicine; Visit Provider Radiology Diagnostic Radiology | DX: Z12.31 Encounter for screening mammogram for malignant neoplasm of breast (principal) | CPT/HCPCS: 77063; 77067 ==

== ENCOUNTER 2024-03-28 10:24 | Outpatient (AMB) | payer OTHER, SELFPAY ==
--- NOTE | 2024-03-28 10:27 | HO.NEPHOV ---
Vital Signs 03/28/24 10:28 Height 5 ft 5 in Weight 178 lb 4 oz BMI 29.7 BP 142/100 H Blood Pressure Location Lt brachial Position Sitting Pulse 76 Pulse Source Pulse Oximeter Pulse Oximetry (%) 100 Oxygen Delivery Method Room Air Intake Visit Reasons: R/S 02/20/2024/ LVM Digital Product Specialist Required: Yes Digital Product Specialist Services: Digital Product Specialist Present Digital Product Specialist Name: Ramandeep Hannah Accompanied by: Self / Same As Patient Allergies Penicillins Allergy (Intermediate, Verified 03/28/24 10:30) RASH HPI Comments Details: 58-year-old woman with stage 5 chronic kidney disease without hemodialysis initiation yet, along with uncontrolled hypertension, chronic systolic congestive heart failure (ejection fraction 40-45% as of December 2022), and chronic iron deficiency anemia who despite medical recommendations, had declined colonoscopy with non-adherence to medications and follow-up appointments, who recently had a hospitalization with symptoms include weakness, shortness of breath, and chest pain . She denied melena at that time. Emergency department findings reveal a hemoglobin level of 4.2 and hematocrit of 14, with negative occult blood and troponin tests. ECG shows no acute ischemic changes. Creatinine levels at that time was 5.76 with CO2 of 13. She required total of 5 units transfusion with improvement of Hb on day of discharge to 8.4. She was kept on IV Pantoprazole as she was evaluated by Dr Singh from GI who did EGD and Colonoscopy which showed mild esophagitis along with internal and external hemorrhoids. She needs repeat Colonoscopy in 6 months as preperation was not optimal. She was started on omeprazole for Esophagitis. She has been on Sodium Bicab for Metabolic acidosis. She is seen today in follow up. She denies uremic symptoms. Her Hb had been improving with Procrit. She wants her abdominal hernia taken care of. ON LICENSE OF [facility] Medical History (Updated 03/28/24 @ 10:35 by Danis Betancur MD) Anemia in chronic kidney disease (CKD) CKD (chronic kidney disease) stage 5, GFR less than 15 ml/min Anemia CKD (chronic kidney disease) Chronic systolic (congestive) heart failure Cardiomyopathy Essential hypertension Normocytic anemia Surgical History History of surgery Status post dilation and curettage History of abdominal surgery History of extraction of renal calculus History of tubal ligation Family History Father Throat cancer Mother Hypertension Daughter In good health Daughter In good health Sister In good health Family/Other Breast cancer Social History Household Members: Children Housing: Apartment Do you presently have visiting nurse or other home services: Yes (visiting nurse) Alcohol intake: never Patient Tobacco Use Status: Never used Tobacco Tobacco use type: Cigarette Years Smoked: 30 +/- e-Cigarette/Vaping Use: Never Used Second Hand Smoke Exposure: No service: No Current occupational status: unemployed Cognitive needs: No Hearing needs: No Vision needs: No Review of Systems Const All systems reviewed & are unremarkable except as noted in HPI and below Physical Exam Vital Signs: Last Vital Signs Pulse 76 03/28/24 10:28 BP 142/100 H 03/28/24 10:28 Pulse Ox 100 03/28/24 10:28 Oxygen Delivery Method Room Air 03/28/24 10:28 BMI result Body Mass Index 29.7 Const General: comfortable and no acute distress Orientation/consciousness: patient oriented x3 HEENT Head: Yes normocephalic Mouth: Normal oral and palatal mucosa present Eyes EOM: EOMs intact bilaterally Neck Neck: Yes supple Resp Auscultation: clear to auscultation bilaterally Cardio Jugular venous distension: no JVD Rate: regular rate GI Palpation (GI): Soft to palpation Auscultation: normal bowel sounds General: Yes no CVA tenderness Back/Spine/Pelvis Back: no CVA tenderness Skin General skin exam: no rashes or lesions noted Neuro General: patient oriented x3 and moves all extremities Extrem General: Yes no pedal edema Office Meds epoetin tian-epbx 10,000 unit/mL injection solution Performing Provider: Danis Betancur MD Performing Location: [facility] Administered by: Danis Betancur MD on 03/28/24 10:36 Dose Route Admin Location Dispensed Lot Number Expiration Date [facility] Residential Real Estate Sales Manager 20,000 unit subcut LUE 2 mL [id number] 08/03/25 0362-6987-00 [employer] Results Reviewed Nephrology Results: Hgb 9.9 g/dl (12.0-16.0) L 01/02/24 WBC 5.4 X10*3/uL (4.8-10.8) 01/02/24 Plt Count 253 X10*3/uL (160-400) 01/02/24 Sodium 142 mmol/L (135-145) 01/02/24 Potassium 4.2 mmol/L (3.3-5.1) 01/02/24 Chloride 112 mmol/L (96-108) H 01/02/24 Carbon Dioxide 16 mmol/L (22-29) L 01/02/24 BUN 66 mg/dL (9-16) H 01/02/24 Creatinine 5.45 mg/dL (0.5-1.4) H* 01/02/24 Assessment & Plan Assessment & Plan (1) CKD (chronic kidney disease) stage 5, GFR less than 15 ml/min: Code(s): N18.5 - Chronic kidney disease, stage 5 Category: Medical (2) Secondary hyperparathyroidism (of renal origin): Code(s): N25.81 - Secondary hyperparathyroidism of renal origin Category: Medical (3) Anemia in chronic kidney disease (CKD): Code(s): N18.9 - Chronic kidney disease, unspecified; D63.1 - Anemia in chronic kidney disease Category: Medical Qualifiers: Chronic kidney disease stage: stage 5, not on chronic dialysis Qualified Code(s): N18.5 - Chronic kidney disease, stage 5; D63.1 - Anemia in chronic kidney disease Plan 58-year-old woman with advanced renal failure approaching end stage renal disease. No overt signs or symptoms of uremia No absolute indication for dialysis yet. She stopped Amlodipine when she developed edema. So I increased Carvedilol to 6.25 mg bid. She has Iron deficiency probably . 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 On Ferrous sulphate ; On p.o. bicarbonate to correct acidosis; In Vitamin D; Will need HD access and transplant referral- doesn't want it now. Administered [id number] U Procrit injection S/C LUE . Answered all questions Orders: Orders Complete Blood Count Auto Diff Today N18.5 - Chronic kidney disease, stage 5 Ferritin Today N18.5 - Chronic kidney disease, stage 5 Blood Urea Nitrogen Today N18.5 - Chronic kidney disease, stage 5 Calcium Today N18.5 - Chronic kidney disease, stage 5 Parathyroid Hormone Intact Today N18.5 - Chronic kidney disease, stage 5 Phosphorus Today N18.5 - Chronic kidney disease, stage 5 AMB Epoetin Injection Practice Supplied Today D63.1 - Anemia in chronic kidney disease, N18.5 - Chronic kidney disease, stage 5 IRON PROFILE Today N18.5 - Chronic kidney disease, stage 5 Creatinine Today N18.5 - Chronic kidney disease, stage 5 Electrolytes Today N18.5 - Chronic kidney disease, stage 5 Vitamin D 25-OH Total Today N18.5 - Chronic kidney disease, stage 5 Medications: Changed From carvedilol 3.125 mg PO BID 180 tabs 3RF I42.9 - Cardiomyopathy, unspecified To carvedilol 6.25 mg PO BID 30 days 60 tabs 3RF I42.9 - Cardiomyopathy, unspecified Discontinued amlodipine Discontinued Reason: Doctor's Order 5 mg PO DAILY 90 days 90 tabs 1RF I10 - Essential (primary) hypertension Coding Level of Care Code Est Pt Level 4 (59745) Diagnoses CKD (chronic kidney disease) stage 5, GFR less than 15 ml/min N18.5 Secondary hyperparathyroidism (of renal origin) N25.81 Anemia in stage 5 chronic kidney disease, not on chronic dialysis N18.5; D63.1 Chronic kidney disease stage: stage 5, not on chronic dialysis
[2024-03-28 10:28] VITALS: BP 142/100; PULSE 76; O2SAT 100; BMI 29.7
== END 2024-03-28 10:46 | disposition home or self-care (01) ==
PROVIDERS: PCP Internal Medicine; Visit Provider Internal Medicine Nephrology
DX: N18.5 Chronic kidney disease, stage 5 (principal); N25.81 Secondary hyperparathyroidism of renal origin; D63.1 Anemia in chronic kidney disease
CPT/HCPCS: 99214

== ENCOUNTER → 2024-03-28 10:24 | Outpatient (BNVA) | payer OTHER, SELFPAY | PROVIDERS: PCP Internal Medicine; Visit Provider Internal Medicine Nephrology | DX: N18.5 Chronic kidney disease, stage 5 (principal); N25.81 Secondary hyperparathyroidism of renal origin; D63.1 Anemia in chronic kidney disease | CPT/HCPCS: 36415; 80051; 82306; 82310; 82565; 82728; 83540; 83970; 84100; 84520; 85025; 96372; 99212; Q5106 ==

== ENCOUNTER 2024-03-28 10:51 | Outpatient (REF) | payer OTHER, SELFPAY ==
[2024-03-28 13:11] LABS: MANUAL DIFF FLAG NO
[2024-03-28 13:17] LABS: Basophils Percent Auto 0.6 % (0-2); Eosinophils Absolute Auto 0.1 X10*3/uL (0.0-0.4); Eosinophils Percent Auto 1.7 % (0-4); Hematocrit 31.3 % (37.0-47.0); Hemoglobin 9.9 g/dl (12.0-16.0); Imm Gran Abs Auto 0.02 X10*3/uL (0.00-0.03); Imm Gran Pct Auto 0.3 % (0.0-0.4); Lymphocytes Absolute Auto 1.9 X10*3/uL (1.2-4.9); Lymphocytes Percent Auto 26.5 % (20-40); Mean Corpuscular HGB Conc 31.6 g/dl (31.0-35.0); Mean Corpuscular Volume 88.4 fL (80.0-98.0); Monocytes Absolute Auto 0.5 X10*3/uL (0.1-1.2); Monocytes Percent Auto 6.6 % (2-11); Neutrophils Absolute Auto 4.7 x10*3/uL (2.0-8.3); Neutrophils Percent Auto 64.3 % (45-73); Platelet Count 191 X10*3/uL (160-400); Red Blood Count 3.54 X10*6/uL (4.20-5.50); Red Cell Distribution Width 15.8 % (11.0-16.0); White Blood Count 7.2 X10*3/uL (4.8-10.8)
[2024-03-28 13:42] LABS: Anion Gap 16 (12-20); Blood Urea Nitrogen 78 mg/dL (9-16); Calcium 8.3 mg/dL (8.4-10.2); Carbon Dioxide 15 mmol/L (22-29); Chloride 119 mmol/L (96-108); Iron 35 mcg/dL (30-160); Percent Iron Saturation 15 % (15-50); Phosphorus 6.1 mg/dL (2.7-4.5); Potassium 4.6 mmol/L (3.3-5.1); Sodium 145 mmol/L (135-145); Total Iron Binding Capacity 241 mcg/dL (228-428); Unsaturated Iron Binding 206 ug/dL
[2024-03-28 13:47] LABS: Estimated Glomerular Filt Rate 7; Parathyroid Hormone Intact 1121.1 pg/mL (8.7-77.1)
[2024-03-28 13:57] LABS: Ferritin 47 ng/mL (10-250); Vitamin D 25-OH Total 43.5 ng/mL (>30)
== END 2024-03-28 10:52 | disposition home or self-care (01) ==
LOC: HO.10HDL 10:51
PROVIDERS: Visit Provider Internal Medicine Nephrology
DX: Z13.89 Encounter for screening for other disorder (principal)
CPT/HCPCS: 36415; 80051; 82306; 82310; 82565; 82728; 83540; 83970; 84100; 84520; 85025

== ENCOUNTER 2024-06-25 10:14 | Outpatient (AMB) | payer OTHER, SELFPAY ==
--- NOTE | 2024-06-25 10:24 | MHC.PC.OV ---
Vital Signs 06/25/24 10:25 Height 5 ft 5 in Weight 175 lb BMI 29.1 BP 132/80 Blood Pressure Location Lt brachial Position Sitting Intake Visit Reasons: annual Intake Note: Patient here for an Annual Physical Exam Glass Technician/Installer Required: No Accompanied by: Daughter Allergies Penicillins Allergy (Intermediate, Verified 06/25/24 10:40) RASH Medication List - Last Reconciled 06/25/24 by Britt De MD [bed rail As directed] blood pressure monitor As directed carvedilol 6.25 mg PO BID cholecalciferol (vitamin D3) 1,250 mcg PO QWEEK ferrous sulfate 325 mg PO BID Grab bar As directed [hand held shower As directed] hydrocortisone 2.5% (Proctosol HC) 1 appl IA BID-QID PRN 30 days hydrocortisone acetate 25 mg IA BID 4 weeks omeprazole 20 mg PO DAILY phenyleph-shark carmina oil-mo-pet (Hemorrhoidal ointment) 1 appl IA Q8H [pill box twice daily As directed] Shower Chair with back sitz bath As directed sodium bicarbonate 1,300 mg (2 x 650 mg) PO TID Tobacco use date assessed: 11/22/23 Dental Screening Dental Screen Date: 11/22/23 HPI HPI Comments History of Present Illness Details This is a 59-year-old female with chronic kidney disease stage 5 and secondary hyperparathyroidism that comes for her physical exam accompanied by daughter. Chronic kidney disease is follow by Nephrology and she declines hemodialysis. Said she was on hemodialysis in the past and felt very tired. Mammogram done 2023. As per patient Pap smear was done this year. Colonoscopy done 2023 had a poor prep and needed to be repeated. I will refer her to Gastro for that matter. No chest pain or shortness on breath. [facility] Medical History (Updated 06/25/24 @ 13:18 by Britt De MD) Anemia in chronic kidney disease (CKD) CKD (chronic kidney disease) stage 5, GFR less than 15 ml/min Anemia CKD (chronic kidney disease) Chronic systolic (congestive) heart failure Cardiomyopathy Essential hypertension Normocytic anemia Surgical History (Updated 06/25/24 @ 10:59 by Britt De MD) Hx of colonoscopy History of surgery Status post dilation and curettage History of abdominal surgery History of extraction of renal calculus History of tubal ligation Family History Father Throat cancer Mother Hypertension Daughter In good health Daughter In good health Sister In good health Family/Other Breast cancer Social History Household Members: Children Housing: Apartment Do you presently have visiting nurse or other home services: Yes (visiting nurse) Alcohol intake: never Patient Tobacco Use Status: Never used Tobacco Tobacco use type: Cigarette Years Smoked: 30 +/- e-Cigarette/Vaping Use: Never Used Second Hand Smoke Exposure: No service: No Current occupational status: unemployed Cognitive needs: No Hearing needs: No Vision needs: No Questionnaire PHQ-9 Over the last 2 weeks, how often have you been bothered by any of the following problems? 1. Little interest or pleasure in doing things: more than half the days 2. Feeling down, depressed, or hopeless: several days 3. Trouble falling or staying asleep, or sleeping too much: several days 4. Feeling tired or having little energy: nearly every day 5. Poor appetite or overeating: not at all 6. Feeling bad about yourself - or that you are a failure or have let yourself or your family down: several days 7. Trouble concentrating on things, such as reading the newspaper or watching television: several days 8. Moving or speaking so slowly that other people could have noticed. Or the opposite - being so fidgety or restless that you have been moving around a lot more than usual: several days 9. Thoughts that you would be better off or of hurting yourself in some way: not at all Total score: 10 Depression Screening Interpretation: Positive Depression Screening Follow-up: Existing condition and Follow-up Visit Requested Depression Screening Done: Yes 76430 - PHQ-9 Billing: Yes Source: Developed by Drs. Tarun Fernandez, Ciarra Alfred, Mik Sands and colleagues, with an educational kevan from [employer]. Thrive Questionnaire Date Thrive assessed: 11/22/23 I am a: Patient What is your living situation today?: I have a steady place to live Within the past 12 months, did the food you bought not last and you didn't have the money to get more?: Never true Within the past 12 months, did you worry whether your food would run out before you got money to buy more?: Never true Do you have trouble paying for medicines?: No Do you have trouble getting transportation to medical appointments?: No Do you have trouble paying your heating and electricity bill?: No Do you have trouble taking care of your child, family member or friend?: No Do you have trouble with day-to-day activities such as bathing, preparing meals, shopping, managing finances, etc.?: Yes Are you currently unemployed and looking for a job?: No Are you interested in more education?: No Please select the resources that you would like help with: None Currently or been in a relationship where the following occur: No concerns reported THRIVE Score: 0 AUDIT C Alcohol Use Questionnaire (AUDIT-C) 1. How often do you have a drink containing alcohol?: Never Total Score: 0 Score Reviewed/Action Taken: No PAUL-7 AMB Questionnaire PAUL-7 Date PAUL - 7 assessed: 11/22/23 Feeling nervous, anxious, or on edge: 0 = Not at all Not being able to stop or control worryin = Not at all Worrying too much about different things: 1 = Several days Trouble relaxin = Several days Being so restless that it is hard to sit still: 0 = Not at all Becoming easily annoyed or irritable: 1 = Several days Feeling afraid as if something awful might happen: 0 = Not at all Total PAUL-7 score (0-4 normal; 5-9 mild; 10-14 moderate; 15-21 severe): 3 Source: Developed by Drs. Tarun Fernandez, Ciarra Alfred, Mik Sands and colleagues, with an educational kevan from [employer]. PAUL-7 Assessment Billing PAUL-7 Assessment Tool: PAUL-7 Assessment 82584 Review of Systems Const All systems reviewed & are unremarkable except as noted in HPI and below Card Denies chest pain at rest, Denies chest pain with activity, Denies edema, Denies irregular heart rhythm, Denies claudication, Denies dyspnea, Denies dyspnea on exertion, Denies orthopnea, Denies paroxysmal nocturnal dyspnea and Denies slow heart rate Resp Denies cough, Denies dyspnea and Denies dyspnea on exertion Physical exam (Primary Care) Vital Signs: Last Vital Signs BP 132/80 06/25/24 10:25 BMI result Body Mass Index 29.1 Tobacco/Smoking Status: Tobacco use Status Tobacco use date assessed 11/22/23 06/25/24 10:31 Patient Tobacco Use Status Never used Tobacco 06/25/24 10:31 Tobacco use type Cigarette 06/25/24 10:31 e-Cigarette/Vaping Use Never Used 06/25/24 10:31 PHQ-9: PHQ-9 Score PHQ-9: Total score 06/25/24 11:05 Depression Screening Interpretation: Positive Depression Screening Follow-up: Existing condition and Follow-up Visit Requested Thrive Assessment: Date of Thrive Assessment Date Thrive assessed 11/22/23 06/25/24 10:31 Currently or been in a relationship where the following occur: No concerns reported HENMA Head: Yes normal to inspection, Yes normocephalic and Yes atraumatic Ears: external ears normal Eyes General: appearance normal, both eyes and all related structures Eyelids: Yes eyelids normal Conjunctivae: conjunctivae normal Neck Neck: Yes normal visual inspection and Yes supple Resp Effort & Inspection: normal respiratory effort Auscultation: clear to auscultation bilaterally Cardio Jugular venous distension: no JVD Rate: regular rate Rhythm: regular rhythm Heart sounds: S1 normal heart sound present and S2 normal heart sound present GI Inspection: Yes normal to inspection Palpation (GI): Soft to palpation and nontender Auscultation: normal bowel sounds Skin General skin exam: no rashes or lesions noted Neuro General: no focal motor deficits Extrem General: Yes full ROM Psych Appearance: grossly normal Office Procedures Flu Questionnaire Does the patient have a severe egg allergy?: No Does the patient have severe life threatening allergies?: No Does the patient have a fever or illness today?: No Has the patient ever had Guillain-Chula Syndrome?: No Has the patient ever had any past reaction to a flu shot?: No Immunizations Fluarix Triv 4826-3921 (PF) 45 mcg (15 mcg x 3)/0.5 mL IM syringe Performing Provider: Britt De MD [place] [facility] [place] [facility] [place] [facility] Administered by: BALDO Ahn on 06/25/24 11:04 Dose Route Admin Location Dispensed Lot Number Expiration Date [facility] Energy Infrastructure Engineer 0.5 mL IM Left Deltoid 0.5 mL [id number] 03/02/25 40534-503-09 [employer] VIS Given Date VIS Provided VIS Publication Date 06/25/24 Single Vaccine 21 Eligibility Eligibility Date Funding Source Not [facility] Eligible 06/25/24 Private Coding Level of Care Code Est Pt Prev Care 40-64y(94737) Diagnoses Physical exam Z00.00 CKD (chronic kidney disease) stage 5, GFR less than 15 ml/min N18.5 Secondary hyperparathyroidism (of renal origin) N25.81 Additional Codes PAUL-7 Assessment Billing - PAUL-7 Assessment Tool: PAUL-7 Assessment 53842 ([id number]) Time Spent (min) 32 Assessment & Plan Assessment & Plan (1) Physical exam: Code(s): Z00.00 - Encounter for general adult medical examination without abnormal findings Category: Medical Plan: Repeat in a year. (2) CKD (chronic kidney disease) stage 5, GFR less than 15 ml/min: Code(s): N18.5 - Chronic kidney disease, stage 5 Category: Medical Plan: Follow-up with nephrology. Avoid NSAIDs. (3) Secondary hyperparathyroidism (of renal origin): Code(s): N25.81 - Secondary hyperparathyroidism of renal origin Category: Medical Plan: Follow-up with nephrology. Orders: Orders Lipid Panel Today E78.5 - Hyperlipidemia, unspecified IRON PROFILE Today D64.9 - Anemia, unspecified Vitamin D 25-OH Total Today E55.9 - Vitamin D deficiency, unspecified Parathyroid Hormone Intact Today N25.81 - Secondary hyperparathyroidism of renal origin Phosphorus Today N25.81 - Secondary hyperparathyroidism of renal origin Comprehensive [place]. Panel Fast Today N25.81 - Secondary hyperparathyroidism of renal origin Influenza [id number] Immunization Today Z23 - Encounter for immunization Complete Blood Count Auto Diff Today D64.9 - Anemia, unspecified Vitamin B12 and Folate Today E53.8 - Deficiency of other specified B group vitamins Calcium, Ionized Today N25.81 - Secondary hyperparathyroidism of renal origin Referrals Gastroenterology Referral Z98.890 - Other specified postprocedural states
[2024-06-25 10:25] VITALS: BP 132/80; BMI 29.1
== END 2024-06-25 11:05 | disposition home or self-care (01) ==
PROVIDERS: PCP Internal Medicine; Visit Provider Internal Medicine
DX: Z00.00 Encounter for general adult medical examination without abnormal findings (principal); N18.5 Chronic kidney disease, stage 5; N25.81 Secondary hyperparathyroidism of renal origin; Z23 Encounter for immunization

== ENCOUNTER → 2024-06-25 10:14 | Outpatient (BNVA) | payer OTHER, SELFPAY | PROVIDERS: PCP Internal Medicine; Visit Provider Internal Medicine | DX: Z00.00 Encounter for general adult medical examination without abnormal findings (principal); N18.5 Chronic kidney disease, stage 5; N25.81 Secondary hyperparathyroidism of renal origin; Z23 Encounter for immunization | CPT/HCPCS: 90471; 90656; 96127; 99396 ==

== ENCOUNTER 2024-07-02 09:49 | Outpatient (AMB) | payer OTHER, SELFPAY ==
--- NOTE | 2024-07-02 10:15 | HO.NEPHOV_ITS ---
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 Digger Services: Haulage Engine Operator Offered & Declined [place] [place] refused pt accompanied by daughter ) Haulage Engine Operator Name: Iris- Daughter Accompanied by: Daughter Allergies Penicillins Allergy (Intermediate, Verified 07/02/24 10:18) RASH HPI Comments Details: 58-year-old woman with stage 5 chronic kidney disease without hemodialysis initiation yet, along with uncontrolled hypertension, chronic systolic congestive heart failure (ejection fraction 40-45% as of December 2022), and chronic iron deficiency anemia who despite medical recommendations, had declined colonoscopy with non-adherence to medications and follow-up appointments. She recently had a hemoglobin level of 4.2 and hematocrit of 14, with negative occult blood and troponin tests. ECG shows no acute ischemic changes. Creatinine levels at that time was 5.76 with CO2 of 13. She required total of 5 units transfusion with improvement of Hb on day of discharge to 8.4. She was started on omeprazole for Esophagitis. She had been on Sodium Bicab for Metabolic acidosis but stopped taking all medications . She is seen today in follow up. She denies uremic symptoms. She doesnt want HD access or renal transplant but interested in renal transplantation [facility] Medical History (Updated 07/02/24 @ 10:36 by Danis Betancur MD) Anemia in chronic kidney disease (CKD) CKD (chronic kidney disease) stage 5, GFR less than 15 ml/min Anemia CKD (chronic kidney disease) Chronic systolic (congestive) heart failure Cardiomyopathy Essential hypertension Normocytic anemia Surgical History Hx of colonoscopy History of surgery Status post dilation and curettage History of abdominal surgery History of extraction of renal calculus History of tubal ligation Family History Father Throat cancer Mother Hypertension Daughter In good health Daughter In good health Sister In good health Family/Other Breast cancer Social History Household Members: Children Housing: Apartment Do you presently have visiting nurse or other home services: Yes (visiting nurse) Alcohol intake: never Patient Tobacco Use Status: Never used Tobacco Tobacco use type: Cigarette Years Smoked: 30 +/- e-Cigarette/Vaping Use: Never Used Second Hand Smoke Exposure: No service: No Current occupational status: unemployed Cognitive needs: No Hearing needs: No Vision needs: No Review of Systems Const All systems reviewed & are unremarkable except as noted in HPI and below Physical Exam Vital Signs: Last Vital Signs Pulse 90 07/02/24 10:16 BP 158/90 H 07/02/24 10:16 Pulse Ox 98 07/02/24 10:16 Oxygen Delivery Method Room Air 07/02/24 10:16 BMI result Body Mass Index 29.5 Const General: comfortable and no acute distress Orientation/consciousness: patient oriented x3 HEENT Head: Yes normocephalic Mouth: Normal oral and palatal mucosa present Eyes EOM: EOMs intact bilaterally Neck Neck: Yes supple Resp Auscultation: clear to auscultation bilaterally Cardio Jugular venous distension: no JVD Rate: regular rate GI Palpation (GI): Soft to palpation Auscultation: normal bowel sounds General: Yes no CVA tenderness Back/Spine/Pelvis Back: no CVA tenderness Skin General skin exam: no rashes or lesions noted Neuro General: patient oriented x3 and moves all extremities Extrem General: Yes no pedal edema Results Reviewed Nephrology Results: Hgb 9.9 g/dl (12.0-16.0) L 03/28/24 WBC 7.2 X10*3/uL (4.8-10.8) 03/28/24 Plt Count 191 X10*3/uL (160-400) 03/28/24 Sodium 145 mmol/L (135-145) 03/28/24 Potassium 4.6 mmol/L (3.3-5.1) 03/28/24 Chloride 119 mmol/L (96-108) H 03/28/24 Carbon Dioxide 15 mmol/L (22-29) L 03/28/24 BUN 78 mg/dL (9-16) H 03/28/24 Creatinine 5.98 mg/dL (0.5-1.4) H* 03/28/24 Calcium 8.3 mg/dL (8.4-10.2) L 03/28/24 Phosphorus 6.1 mg/dL (2.7-4.5) H 03/28/24 PTH Intact 1121.1 pg/mL (8.7-77.1) H 03/28/24 Assessment & Plan Assessment & Plan (1) CKD (chronic kidney disease) stage 5, GFR less than 15 ml/min: Code(s): N18.5 - Chronic kidney disease, stage 5 Category: Medical (2) Secondary hyperparathyroidism (of renal origin): Code(s): N25.81 - Secondary hyperparathyroidism of renal origin Category: Medical (3) Anemia in chronic kidney disease (CKD): Code(s): N18.9 - Chronic kidney disease, unspecified; D63.1 - Anemia in chronic kidney disease Category: Medical Qualifiers: Chronic kidney disease stage: stage 5, not on chronic dialysis Qual ified Code(s): N18.5 - Chronic kidney disease, stage 5; D63.1 - Anemia in chronic kidney disease (4) Iron deficiency: Code(s): E61.1 - Iron deficiency Category: Medical (5) Metabolic acidosis: Code(s): E87.20 - Acidosis, unspecified Category: Medical Plan 58-year-old woman with advanced renal failure approaching end stage renal disease. No overt signs or symptoms of uremia No absolute indication for dialysis yet. She has stopped taking medications. 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 Was on Ferrous sulphate ; On p.o. bicarbonate to correct acidosis; Vitamin D; Will need pyschological evaluation. Denied HD access but wants a transplant referral( done). Answered all questions. F/U 1 week Orders: Orders Ferritin Today D63.1 - Anemia in chronic kidney disease, E61.1 - Iron deficiency, E87.20 - Acidosis, unspecified, N18.5 - Chronic kidney disease, stage 5, N25.81 - Secondary hyperparathyroidism of renal origin Creatinine Today D63.1 - Anemia in chronic kidney disease, E61.1 - Iron deficiency, E87.20 - Acidosis, unspecified, N18.5 - Chronic kidney disease, stage 5, N25.81 - Secondary hyperparathyroidism of renal origin Blood Urea Nitrogen Today D63.1 - Anemia in chronic kidney disease, E61.1 - Iron deficiency, E87.20 - Acidosis, unspecified, N18.5 - Chronic kidney disease, stage 5, N25.81 - Secondary hyperparathyroidism of renal origin Complete Blood Count Auto Diff Today D63.1 - Anemia in chronic kidney disease, E61.1 - Iron deficiency, E87.20 - Acidosis, unspecified, N18.5 - Chronic kidney disease, stage 5, N25.81 - Secondary hyperparathyroidism of renal origin IRON PROFILE Today D63.1 - Anemia in chronic kidney disease, E61.1 - Iron deficiency, E87.20 - Acidosis, unspecified, N18.5 - Chronic kidney disease, stage 5, N25.81 - Secondary hyperparathyroidism of renal origin Electrolytes Today D63.1 - Anemia in chronic kidney disease, E61.1 - Iron deficiency, E87.20 - Acidosis, unspecified, N18.5 - Chronic kidney disease, stage 5, N25.81 - Secondary hyperparathyroidism of renal origin Calcium Today D63.1 - Anemia in chronic kidney disease, E61.1 - Iron defi ciency, E87.20 - Acidosis, unspecified, N18.5 - Chronic kidney disease, stage 5, N25.81 - Secondary hyperparathyroidism of renal origin Phosphorus Today D63.1 - Anemia in chronic kidney disease, E61.1 - Iron deficiency, E87.20 - Acidosis, unspecified, N18.5 - Chronic kidney disease, stage 5, N25.81 - Secondary hyperparathyroidism of renal origin Parathyroid Hormone Intact Today D63.1 - Anemia in chronic kidney disease, E61.1 - Iron deficiency, E87.20 - Acidosis, unspecified, N18.5 - Chronic kidney disease, stage 5, N25.81 - Secondary hyperparathyroidism of renal origin Vitamin D 25-OH Total Today D63.1 - Anemia in chronic kidney disease, E61.1 - Iron deficiency, E87.20 - Acidosis, unspecified, N18.5 - Chronic kidney disease, stage 5, N25.81 - Secondary hyperparathyroidism of renal origin Referrals Transplant Surgery Referral N18.5 - Chronic kidney disease, stage 5 Coding Level of Care Code Est Pt Level 4 (06089) Diagnoses CKD (chronic kidney disease) stage 5, GFR less than 15 ml/min N18.5 Secondary hyperparathyroidism (of renal origin) N25.81 Anemia in stage 5 chronic kidney disease, not on chronic dialysis N18.5; D63.1 Chronic kidney disease stage: stage 5, not on chronic dialysis Iron deficiency E61.1 Metabolic acidosis E87.20
[2024-07-02 10:16] VITALS: BP 158/90; PULSE 90; O2SAT 98; BMI 29.5
== END 2024-07-02 10:46 | disposition home or self-care (01) ==
LOC: HO.HKA 09:50
PROVIDERS: PCP Internal Medicine; Visit Provider Internal Medicine Nephrology
DX: N18.5 Chronic kidney disease, stage 5 (principal); N25.81 Secondary hyperparathyroidism of renal origin; D63.1 Anemia in chronic kidney disease; E61.1 Iron deficiency; E87.20 Acidosis, unspecified
CPT/HCPCS: 99214

== ENCOUNTER → 2024-07-02 09:49 | Outpatient (BNVA) | payer OTHER, SELFPAY | PROVIDERS: PCP Internal Medicine; Visit Provider Internal Medicine Nephrology | DX: N18.5 Chronic kidney disease, stage 5 (principal); N25.81 Secondary hyperparathyroidism of renal origin; D63.1 Anemia in chronic kidney disease; E61.1 Iron deficiency; E87.20 Acidosis, unspecified | CPT/HCPCS: 99212 ==

== ENCOUNTER 2024-07-04 10:34 | Outpatient (REF) | payer OTHER, SELFPAY ==
[2024-07-04 10:54] LABS: MANUAL DIFF FLAG NO
[2024-07-04 11:35] LABS: Basophils Percent Auto 0.4 % (0-2); Eosinophils Absolute Auto 0.1 X10*3/uL (0.0-0.4); Eosinophils Percent Auto 1.8 % (0-4); Hemoglobin 7.5 g/dl (12.0-16.0); Imm Gran Abs Auto 0.03 X10*3/uL (0.00-0.03); Imm Gran Pct Auto 0.4 % (0.0-0.4); Lymphocytes Absolute Auto 1.6 X10*3/uL (1.2-4.9); Lymphocytes Percent Auto 21.5 % (20-40); Mean Corpuscular HGB Conc 31.3 g/dl (31.0-35.0); Mean Corpuscular Hemoglobin 28.1 pg (27.0-33.0); Mean Corpuscular Volume 89.9 fL (80.0-98.0); Mean Platelet Volume 11.5 fL (9.4-12.3); Monocytes Absolute Auto 0.5 X10*3/uL (0.1-1.2); Monocytes Percent Auto 6.2 % (2-11); Neutrophils Absolute Auto 5.1 x10*3/uL (2.0-8.3); Neutrophils Percent Auto 69.7 % (45-73); Platelet Count 191 X10*3/uL (160-400); Red Blood Count 2.67 X10*6/uL (4.20-5.50); Red Cell Distribution Width 13.7 % (11.0-16.0); White Blood Count 7.3 X10*3/uL (4.8-10.8)
[2024-07-04 12:18] LABS: Ferritin 22 ng/mL (10-250)
[2024-07-04 12:24] LABS: Parathyroid Hormone Intact 1312.9 pg/mL (8.7-77.1)
[2024-07-04 12:29] LABS: Anion Gap 16 (12-20)
[2024-07-04 12:36] LABS: Blood Urea Nitrogen 99 mg/dL (9-16); Calcium 8.5 mg/dL (8.4-10.2); Carbon Dioxide 13 mmol/L (22-29); Chloride 117 mmol/L (96-108); Iron 21 mcg/dL (30-160); Percent Iron Saturation 8 % (15-50); Phosphorus 7.3 mg/dL (2.7-4.5); Potassium 4.4 mmol/L (3.3-5.1); Sodium 142 mmol/L (135-145); Total Iron Binding Capacity 260 mcg/dL (228-428); Unsaturated Iron Binding 239 ug/dL
[2024-07-04 12:53] LABS: Estimated Glomerular Filt Rate 7
== END 2024-07-04 10:35 | disposition home or self-care (01) ==
LOC: HO.LAB 10:34
PROVIDERS: PCP Internal Medicine; Visit Provider Internal Medicine Nephrology
DX: E87.20 Acidosis, unspecified (principal); N18.5 Chronic kidney disease, stage 5; E61.1 Iron deficiency; N25.81 Secondary hyperparathyroidism of renal origin; D63.1 Anemia in chronic kidney disease
CPT/HCPCS: 36415; 80051; 82306; 82310; 82565; 82728; 83540; 83970; 84100; 84520; 85025

== ENCOUNTER 2024-07-16 10:38 | Outpatient (AMB) | payer OTHER, SELFPAY ==
--- NOTE | 2024-07-16 11:02 | HO.NEPHOV ---
Vital Signs 07/16/24 11:07 Height 5 ft 5 in Weight 174 lb 2 oz BMI 29.0 BP 130/80 Blood Pressure Location Lt brachial Position Sitting Pulse 78 Pulse Source Pulse Oximeter Pulse Oximetry (%) 99 Oxygen Delivery Method Room Air Intake Visit Reasons: CKD-LVM Customer Support Technician Required: Yes Customer Support Technician Language: [place] Accompanied by: Daughter Allergies Penicillins Allergy (Intermediate, Verified 07/02/24 10:18) RASH HPI Comments Details: 58-year-old woman with stage 5 chronic kidney disease without hemodialysis initiation yet, along with uncontrolled hypertension, chronic systolic congestive heart failure (ejection fraction 40-45% as of December 2022), and chronic iron deficiency anemia who despite medical recommendations, had declined colonoscopy with non-adherence to medications and follow-up appointments. She recently had a hemoglobin level of 4.2 and hematocrit of 14, with negative occult blood and troponin tests. ECG shows no acute ischemic changes. Creatinine levels at that time was 5.76 with CO2 of 13. She required total of 5 units transfusion with improvement of Hb on day of discharge to 8.4. She has been started on Sodium Bicarb for Metabolic acidosis, Vitamin D and Ferrous sulphate but has not been taking NaHCO3 . She is seen today in follow up. She denies uremic symptoms. She doesnt want HD access or renal transplant but interested in renal transplantation [facility] Medical History (Updated 07/16/24 @ 15:28 by Danis Betancur MD) Anemia in chronic kidney disease (CKD) CKD (chronic kidney disease) stage 5, GFR less than 15 ml/min Anemia CKD (chronic kidney disease) Chronic systolic (congestive) heart failure Cardiomyopathy Essential hypertension Normocytic anemia Surgical History Hx of colonoscopy History of surgery Status post dilation and curettage History of abdominal surgery History of extraction of renal calculus History of tubal ligation Family History Father Throat cancer Mother Hypertension Daughter In good health Daughter In good health Sister In good health Family/Other Breast cancer Social History Household Members: Children Housing: Apartment Do you presently have visiting nurse or other home services: Yes (visiting nurse) Alcohol intake: never Patient Tobacco Use Status: Never used Tobacco Tobacco use type: Cigarette Years Smoked: 30 +/- e-Cigarette/Vaping Use: Never Used Second Hand Smoke Exposure: No service: No Current occupational status: unemployed Cognitive needs: No Hearing needs: No Vision needs: No Review of Systems Const All systems reviewed & are unremarkable except as noted in HPI and below Physical Exam Vital Signs: Last Vital Signs Pulse 78 07/16/24 11:07 BP 130/80 07/16/24 11:07 Pulse Ox 99 07/16/24 11:07 Oxygen Delivery Method Room Air 07/16/24 11:07 BMI result Body Mass Index 29.0 Const General: comfortable and no acute distress Orientation/consciousness: patient oriented x3 HEENT Head: Yes normocephalic Mouth: Normal oral and palatal mucosa present Eyes EOM: EOMs intact bilaterally Neck Neck: Yes supple Resp Auscultation: clear to auscultation bilaterally Cardio Jugular venous distension: no JVD Rate: regular rate GI Palpation (GI): Soft to palpation Auscultation: normal bowel sounds General: Yes no CVA tenderness Back/Spine/Pelvis Back: no CVA tenderness Skin General skin exam: no rashes or lesions noted Neuro General: patient oriented x3 and moves all extremities Extrem General: Yes no pedal edema Office Meds epoetin tian-epbx 10,000 unit/mL injection solution Performing Provider: Danis Betancur MD Performing [place] [facility] [place] [facility] Administered by: Danis Betancur MD on 07/16/24 11:24 Dose Route Admin Location Dispensed Lot Number Expiration Date [facility] Label [employer] 40,000 unit subcut LUE 4 mL [id number] 01/01/26 3787-1688-54 [employer] [place] Results Reviewed Nephrology Results: Hgb 7.5 g/dl (12.0-16.0) L 07/04/24 WBC 7.3 X10*3/uL (4.8-10.8) 07/04/24 Plt Count 191 X10*3/uL (160-400) 07/04/24 Sodium 142 mmol/L (135-145) 07/04/24 Potassium 4.4 mmol/L (3.3-5.1) 07/04/24 Chloride 117 mmol/L (96-108) H 07/04/24 Carbon Dioxide 13 mmol/L (22-29) L 07/04/24 BUN 99 mg/dL (9-16) H 07/04/24 Creatinine 6.23 mg/dL (0.5-1.4) H* 07/04/24 Calcium 8.5 mg/dL (8.4-10.2) 07/04/24 Phosphorus 7.3 mg/dL (2.7-4.5) H 07/04/24 PTH Intact 1312.9 pg/mL (8.7-77.1) H 07/04/24 Assessment & Plan Assessment & Plan (1) Anemia in chronic kidney disease (CKD): Code(s): N18.9 - Chronic kidney disease, unspecified; D63.1 - Anemia in chronic kidney disease Category: Medical Qualifiers: Chronic kidney disease stage: stage 5, not on chronic dialysis Qualified Code(s): N18.5 - Chronic kidney disease, stage 5; D63.1 - Anemia in chronic kidney disease (2) CKD (chronic kidney disease) stage 5, GFR less than 15 ml/min: Code(s): N18.5 - Chronic kidney disease, stage 5 Category: Medical (3) Metabolic acidosis: Code(s): E87.20 - Acidosis, unspecified Category: Medical (4) Iron deficiency: Code(s): E61.1 - Iron deficiency Category: Medical (5) Secondary hyperparathyroidism (of renal origin): Code(s): N25.81 - Secondary hyperparathyroidism of renal origin Category: Medical (6) Vitamin D deficiency: Code(s): E55.9 - Vitamin D deficiency, unspecified Category: Medical Plan 58-year-old woman with advanced renal failure approaching end stage renal disease. No overt signs or symptoms of uremia No absolute indication for dialysis today. She has not been taking medications as prescribed. 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 Encouraged to take Ferrous sulphate/ NaHCO3 / Vitamin D. Administered [id number] Units of Procrit today. Ordered Venofer IV through infusion suite. Will need pyschological evaluation. Denied HD access but wants a transplant referral( done). Answered all questions. Orders: Orders Blood Urea Nitrogen 4 Weeks D63.1 - Anemia in chronic kidney disease, E87.20 - Acidosis, unspecified, N18.5 - Chronic kidney disease, stage 5 Electrolytes 4 Weeks D63.1 - Anemia in chronic kidney disease, E87.20 - Acidosis, unspecified, N18.5 - Chronic kidney disease, stage 5 Complete Blood Count Auto Diff 4 Weeks D63.1 - Anemia in chronic kidney disease, E87.20 - Acidosis, unspecified, N18.5 - Chronic kidney disease, stage 5 AMB Epoetin Injection Practice Supplied Today D63.1 - Anemia in chronic kidney disease, N18.5 - Chronic kidney disease, stage 5 Creatinine 4 Weeks D63.1 - Anemia in chronic kidney disease, E87.20 - Acidosis, unspecified, N18.5 - Chronic kidney disease, stage 5 Referrals Infusion Center Notification E61.1 - Iron deficiency Coding Level of Care Code Est Pt Level 4 (19842) Diagnoses Anemia in stage 5 chronic kidney disease, not on chronic dialysis N18.5; D63.1 Chronic kidney disease stage: stage 5, not on chronic dialysis CKD (chronic kidney disease) stage 5, GFR less than 15 ml/min N18.5 Metabolic acidosis E87.20 Iron deficiency E61.1 Secondary hyperparathyroidism (of renal origin) N25.81 Vitamin D deficiency E55.9
[2024-07-16 11:07] VITALS: BP 130/80; PULSE 78; O2SAT 99; BMI 29.0
== END 2024-07-16 11:33 | disposition home or self-care (01) ==
LOC: HO.HKAS 10:38
PROVIDERS: PCP Internal Medicine; Visit Provider Internal Medicine Nephrology
DX: N18.5 Chronic kidney disease, stage 5 (principal); D63.1 Anemia in chronic kidney disease; E87.20 Acidosis, unspecified; E61.1 Iron deficiency; N25.81 Secondary hyperparathyroidism of renal origin; E55.9 Vitamin D deficiency, unspecified
CPT/HCPCS: 99214

== ENCOUNTER → 2024-07-16 10:38 | Outpatient (BNVA) | payer OTHER, SELFPAY | PROVIDERS: PCP Internal Medicine; Visit Provider Internal Medicine Nephrology | DX: I13.2 Hypertensive heart and chronic kidney disease with heart failure and with stage 5 chronic kidney disease, or end stage renal disease (principal); N18.5 Chronic kidney disease, stage 5; I50.9 Heart failure, unspecified; D50.9 Iron deficiency anemia, unspecified; E87.20 Acidosis, unspecified; N25.81 Secondary hyperparathyroidism of renal origin; E55.9 Vitamin D deficiency, unspecified | CPT/HCPCS: 96372; 99212; Q5106 ==

== ENCOUNTER 2024-08-15 11:46 | Outpatient (AMB) | payer OTHER, SELFPAY ==
--- NOTE | 2024-08-15 11:56 | HO.NEPHOV_ITS ---
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 She recently had a very low hemoglobin with negative occult blood and troponin tests. ECG at that time did not show no acute ischemic changes. She does not take medications as prescribed. She denies uremic symptoms. She doesnt want HD access but interested in renal transplantation. She was accompanied by her daughter. [facility] Medical History (Updated 07/16/24 @ 15:28 by Danis Betancur MD) Anemia in chronic kidney disease (CKD) CKD (chronic kidney disease) stage 5, GFR less than 15 ml/min Anemia CKD (chronic kidney disease) Chronic systolic (congestive) heart failure Cardiomyopathy Essential hypertension Normocytic anemia Surgical History Hx of colonoscopy History of surgery Status post dilation and curettage History of abdominal surgery History of extraction of renal calculus History of tubal ligation Family History Father Throat cancer Mother Hypertension Daughter In good health Daughter In good health Sister In good health Family/Other Breast cancer Social History Household Members: Children Housing: Apartment Do you presently have visiting nurse or other home services: Yes (visiting nurse) Alcohol intake: never Patient Tobacco Use Status: Never used Tobacco Tobacco use type: Cigarette Years Smoked: 30 +/- e-Cigarette/Vaping Use: Never Used Second Hand Smoke Exposure: No service: No Current occupational status: unemployed Cognitive needs: No Hearing needs: No Vision needs: No Review of Systems Const All systems reviewed & are unremarkable except as noted in HPI and below Physical Exam Vital Signs: Last Vital Signs Pulse 82 08/15/24 11:57 BP 160/100 H 08/15/24 11:57 Pulse Ox 98 08/15/24 11:57 Oxygen Delivery Method Room Air 08/15/24 11:57 BMI result Body Mass Index 29.4 Const General: comfortable and no acute distress Orientation/consciousness: patient oriented x3 HEENT Head: Yes normocephalic Mouth: Normal oral and palatal mucosa present Eyes EOM: EOMs intact bilaterally Neck Neck: Yes supple Resp Auscultation: clear to auscultation bilaterally Cardio Jugular venous distension: no JVD Rate: regular rate GI Palpation (GI): Soft to palpation Auscultation: normal bowel sounds General: Yes no CVA tenderness Back/Spine/Pelvis Back: no CVA tenderness Skin General skin exam: no rashes or lesions noted Neuro General: patient oriented x3 and moves all extremities Extrem General: Yes no pedal edema Office Meds epoetin tian-epbx 10,000 unit/mL injection solution Performing Provider: Danis Betancur MD [place]forming [place] [facility] [place] [facility] Administered by: Danis Betancur MD on 08/15/24 12:21 Dose Route Admin Location Dispensed Lot Number Expiration Date [facility] [employer] 40,000 unit subcut LUE 4 mL [id number] 01/01/26 1296-0187-43 [employer] [place] Results Reviewed Nephrology Results: Hgb 6.5 g/dl (12.0-16.0) L* 08/15/24 WBC 6.7 X10*3/uL (4.8-10.8) 08/15/24 Plt Count 203 X10*3/uL (160-400) 08/15/24 Sodium 145 mmol/L (135-145) 08/15/24 Potassium 4.7 mmol/L (3.3-5.1) 08/15/24 Chloride 118 mmol/L (96-108) H 08/15/24 Carbon Dioxide 14 mmol/L (22-29) L 08/15/24 BUN 89 mg/dL (9-16) H 08/15/24 Creatinine 7.30 mg/dL (0.5-1.4) H* 08/15/24 Calcium 8.1 mg/dL (8.4-10.2) L 08/15/24 Phosphorus 6.4 mg/dL (2.7-4.5) H 08/15/24 PTH Intact 1312.9 pg/mL (8.7-77.1) H 07/04/24 Assessment & Plan Assessment & Plan (1) Anemia in chronic kidney disease (CKD): Code(s): N18.9 - Chronic kidney disease, unspecified; D63.1 - Anemia in chronic kidney disease Category: Medical Qualifiers: Chronic kidney disease stage: stage 5, not on chronic dialysis Qualified Code(s): N18.5 - Chronic kidney disease, stage 5; D63.1 - Anemia in chronic kidney disease (2) CKD (chronic kidney disease) stage 5, GFR less than 15 ml/min: Code(s): N18.5 - Chronic kidney disease, stage 5 Category: Medical (3) Iron deficiency: Code(s): E61.1 - Iron deficiency Category: Medical Plan 59-year-old woman with advanced renal failure who has approached end stage renal disease but refuses to take medications as well as dialysis. She remains NON compliant( daughter aware of all these issues). No overt signs or symptoms of uremia.No absolute clinical indication for dialysis today. She is not been taking medications as prescribed. 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 Encouraged to take Ferrous sulphate/ NaHCO3 / Vitamin D. Administered [id number] Units of Procrit today. Ordered Venofer IV through infusion suite at the last visit. Will need pyschological evaluation. Denied HD access but wants a transplant referral( done). Not a ideal candidate for transplant given non compliance and psycholological issues. F/U given Orders: Orders Ferritin Today N18.5 - Chronic kidney disease, stage 5 Electrolytes Today N18.5 - Chronic kidney disease, stage 5 Phosphorus Today N18.5 - Chronic kidney disease, stage 5 AMB Epoetin Injection Practice Supplied Today D63.1 - Anemia in chronic kidney disease, N18.5 - Chronic kidney disease, stage 5 IRON PROFILE Today N18.5 - Chronic kidney disease, stage 5 Calcium Today N18.5 - Chronic kidney disease, stage 5 Blood Urea Nitrogen Today N18.5 - Chronic kidney disease, stage 5 Creatinine Today N18.5 - Chronic kidney disease, stage 5 Complete Blood Count Auto Diff Today D63.1 - Anemia in chronic kidney disease, E61.1 - Iron deficiency, N18.5 - Chronic kidney disease, stage 5 Coding Level of Care Code Est Pt Level 4 (55917) Diagnoses Anemia in stage 5 chronic kidney disease, not on chronic dialysis N18.5; D63.1 Chronic kidney disease stage: stage 5, not on chronic dialysis CKD (chronic kidney disease) stage 5, GFR less than 15 ml/min N18.5 Iron deficiency E61.1
[2024-08-15 11:57] VITALS: BP 160/100; PULSE 82; O2SAT 98; BMI 29.4
== END 2024-08-15 12:28 | disposition home or self-care (01) ==
PROVIDERS: PCP Internal Medicine; Visit Provider Internal Medicine Nephrology
DX: N18.5 Chronic kidney disease, stage 5 (principal); D63.1 Anemia in chronic kidney disease; E61.1 Iron deficiency
CPT/HCPCS: 99214

== ENCOUNTER → 2024-08-15 11:46 | Outpatient (BNVA) | payer OTHER, SELFPAY | PROVIDERS: PCP Internal Medicine; Visit Provider Internal Medicine Nephrology ==

== ENCOUNTER 2024-08-15 12:32 | Outpatient (REF) | payer OTHER, SELFPAY ==
[2024-08-15 13:07] LABS: MANUAL DIFF FLAG NO
[2024-08-15 13:25] LABS: Basophils Absolute Auto 0.1 X10*3/uL (0.0-0.2); Basophils Percent Auto 0.7 % (0-2); Eosinophils Absolute Auto 0.1 X10*3/uL (0.0-0.4); Eosinophils Percent Auto 1.5 % (0-4); Hematocrit 21.7 % (37.0-47.0); Imm Gran Abs Auto 0.02 X10*3/uL (0.00-0.03); Imm Gran Pct Auto 0.3 % (0.0-0.4); Lymphocytes Absolute Auto 1.8 X10*3/uL (1.2-4.9); Lymphocytes Percent Auto 27.5 % (20-40); Mean Corpuscular Hemoglobin 27.8 pg (27.0-33.0); Mean Corpuscular Volume 92.7 fL (80.0-98.0); Mean Platelet Volume 11.2 fL (9.4-12.3); Monocytes Absolute Auto 0.4 X10*3/uL (0.1-1.2); Monocytes Percent Auto 6.1 % (2-11); Neutrophils Absolute Auto 4.3 x10*3/uL (2.0-8.3); Neutrophils Percent Auto 63.9 % (45-73); Platelet Count 203 X10*3/uL (160-400); Red Blood Count 2.34 X10*6/uL (4.20-5.50); Red Cell Distribution Width 15.8 % (11.0-16.0); White Blood Count 6.7 X10*3/uL (4.8-10.8)
[2024-08-15 13:30] LABS: Hemoglobin 6.5 g/dl (12.0-16.0)
[2024-08-15 13:49] LABS: Anion Gap 18 (12-20); Blood Urea Nitrogen 89 mg/dL (9-16); Calcium 8.1 mg/dL (8.4-10.2); Carbon Dioxide 14 mmol/L (22-29); Chloride 118 mmol/L (96-108); Iron 39 mcg/dL (30-160); Percent Iron Saturation 17 % (15-50); Phosphorus 6.4 mg/dL (2.7-4.5); Potassium 4.7 mmol/L (3.3-5.1); Sodium 145 mmol/L (135-145); Total Iron Binding Capacity 229 mcg/dL (228-428); Unsaturated Iron Binding 190 ug/dL
[2024-08-15 13:53] LABS: Estimated Glomerular Filt Rate 6
[2024-08-15 14:02] LABS: Ferritin 122 ng/mL (10-250)
== END 2024-08-15 12:33 | disposition home or self-care (01) ==
LOC: HO.10HDL 12:32
PROVIDERS: Visit Provider Internal Medicine Nephrology
DX: N18.5 Chronic kidney disease, stage 5 (principal); D63.1 Anemia in chronic kidney disease
CPT/HCPCS: 36415; 80051; 82310; 82565; 82728; 83540; 84100; 84520; 85025; 96372; 99212; Q5106

== ENCOUNTER 2024-09-02 10:00 | Outpatient (RCR) | payer OTHER, SELFPAY ==
[2024-07-29 09:55] VITALS: BP 158/52; PULSE 75; RESP 18; TEMP 36.6
[2024-07-29] MEDS: Iron Sucrose Complex 200 MG/10 ML VIAL IVPUSH (10:08)
[2024-08-05 13:07] VITALS: BP 171/61; PULSE 64; RESP 16; TEMP 36.4; O2SAT 100
[2024-08-05] MEDS: Iron Sucrose Complex 200 MG/10 ML VIAL IVPUSH (13:13)
[2024-08-19 09:20] VITALS: BP 144/79; PULSE 75; RESP 16; TEMP 36.3; O2SAT 100
[2024-08-19] MEDS: Iron Sucrose Complex 200 MG/10 ML VIAL IVPUSH (09:27)
[2024-08-26 09:35] VITALS: BP 163/70; PULSE 64; RESP 16; TEMP 36.3; O2SAT 100
[2024-08-26] MEDS: Iron Sucrose Complex 200 MG/10 ML VIAL IVPUSH (09:41)
[2024-09-02 09:44] VITALS: BP 157/80; PULSE 73; RESP 14; TEMP 36.6; O2SAT 95
[2024-09-02] MEDS: Iron Sucrose Complex 200 MG/10 ML VIAL IVPUSH (09:56)
== END 2024-09-02 10:03 | disposition home or self-care (01) ==
LOC: HO.INF 10:00
PROVIDERS: Visit Provider Internal Medicine Nephrology
DX: E61.1 Iron deficiency (principal)
CPT/HCPCS: 96374; J1756

== ENCOUNTER 2024-09-06 18:59 | Inpatient (IN) | payer OTHER, SELFPAY ==
--- NOTE | ~2024-09-06 | NM_ITS ---
EXAMINATION: GI bleeding scan. CLINICAL INDICATION: Active bleeding COMPARISON: CT abdomen and pelvis 06/10/2015. TECHNIQUE: Following labeling of red blood cells with 22 mCi of 99m technetium 04, and IV injection, dynamic perfusion imaging was obtained up to 240 seconds centrically static images were obtained up to 60 minutes. FINDINGS: On perfusion images there is no activity seen within the abdomen. On delayed static images there is no blood labile contrast pooling or stagnation seen this suspect any active site of bleed. There is however increased activity seen in the left abdomen, likely activity within the left colon without exact site of the not known. NM/NM GI bleeding IMPRESSION: No active site of technetium extravasation seen to suspect any site of bleeding. There is diffuse mastectomy seen in the left abdomen presumed to be in the left colon. When and if patient receives endoscopy, the left colon should be inspected first. Electronically signed by: Duke Douglas MD 09/09/2024 04:16 PM [facility]
[2024-09-06 19:03] VITALS: BP 137/46; PULSE 89; RESP 18; TEMP 36.1; O2SAT 100; BMI 29.7
--- NOTE | 2024-09-06 19:03 | ED.NAVMDI ---
HPI - Nausea/Vomiting/Diarrhea General Chief complaint: Nausea/Vomiting/Diarrhea Stated complaint: vomiting,weakness, ? abnormal labs Time Seen by Provider: 09/06/24 21:13 Related Data Previous Rx's ?Medication ?Instructions ?Recorded blood pressure monitor #1 ea 11/10/23 sitz bath #1 ea 11/13/23 Grab bar #1 ea 11/22/23 Shower Chair #1 ea 11/22/23 bed rail #1 ea 11/22/23 hand held shower #1 ea 11/22/23 pill box twice daily #1 ea 11/22/23 carvedilol 6.25 mg tablet 6.25 mg PO BID #180 tabs 06/23/24 ferrous sulfate 325 mg (65 mg 325 mg PO BID #180 tabs 07/04/24 iron) tablet,delayed release sevelamer HCl 800 mg tablet 800 mg PO TID 30 days #90 tabs 07/04/24 sodium bicarbonate 650 mg tablet 1,300 mg (2 x 650 mg) PO TID #180 07/04/24 tabs Allergies Allergy/AdvReac Type Severity Reaction Status Date / Time Penicillins Allergy Intermediate RASH Verified 09/06/24 19:08 [facility] Past Medical History Medical History Anemia in chronic kidney disease (CKD) CKD (chronic kidney disease) stage 5, GFR less than 15 ml/min Anemia CKD (chronic kidney disease) Chronic systolic (congestive) heart failure Cardiomyopathy Essential hypertension Normocytic anemia Surgical History Hx of colonoscopy History of surgery Status post dilation and curettage History of abdominal surgery History of extraction of renal calculus History of tubal ligation Family History Family History Father Throat cancer Mother Hypertension Daughter In good health Daughter In good health Sister In good health Family/Other Breast cancer Social History Social History Household Members: None Housing: Apartment Do you presently have visiting nurse or other home services: Yes ([employer]) Alcohol intake: never Patient Tobacco Use Status: Never used Tobacco Tobacco use type: Cigarette Years Smoked: 30 +/- e-Cigarette/Vaping Use: Never Used Second Hand Smoke Exposure: No service: No Current occupational status: unemployed Cognitive needs: No Hearing needs: No Vision needs: No Physical Exam Vital Signs: Vital Signs: Last Vital Signs Temp 97.6 F 09/07/24 15:35 Pulse 75 09/07/24 15:35 Resp 16 09/07/24 15:35 BP 182/84 H 09/07/24 15:35 Pulse Ox 100 09/07/24 15:55 O2 Del Method Room Air 09/07/24 15:55 BMI result Body Mass Index 29.7 Course Course Course Narrative: This is a Rapid Medical Exam performed in triage by Pallavi Kwok PA-C. Full HPI, ROS and PE to be performed by primary ED provider. 59-year-old female with a past medical history of hernia, CKD, iron-deficiency anemia, asthma, presenting to the ED c/o mild abdominal pain, nausea, vomiting, diarrhea, & brbpr bloody stool since yesterday. denies AC use PE: abdomen soft, +upper ttp, no rebound or guarding Plan: labs, UA, occult stool Medications Administered Generic Name Dose Route Start Last Admin Trade Name Freq PRN Reason Stop Dose Admin Sodium Bicarbonate 50 meq/ 1,000 mls @ 150 mls/hr 09/07/24 14:30 09/07/24 15:21 Dextrose IV 150 mls/hr .Q6H40M ADELA Administration Ondansetron HCl 4 mg 09/06/24 22:18 09/07/24 01:05 Ondansetron Hcl 4 Mg/2 Ml Vial IVPUSH 4 mg Q8H PRN Administration Nausea and Vomiting Pantoprazole Sodium 40 mg 09/07/24 06:30 09/07/24 16:00 Pantoprazole Sodium 40 Mg/10 Ml Vial IVPUSH 40 mg BID@0630,1630 ADELA Administration Sevelamer Carbonate 800 mg 09/07/24 15:00 09/07/24 15:21 Sevelamer Carbonate Tablet 800 Mg Tablet PO 800 mg TID ADELA Administration Sodium Bicarbonate 1,300 mg 09/07/24 15:00 09/07/24 15:21 Sodium Bicarbonate 650 Mg Tablet PO 1,300 mg TID ADELA Administration Sodium Chloride 3 ml 09/07/24 00:00 09/07/24 16:01 0.9 % Sodium Chloride Flush 3 Ml Syringe IVFLUSH 3 ml QSHIFT ADELA Administration Discontinued Medications Generic Name Dose Route Start Last Admin Trade Name oCle PRN Reason Stop Dose Admin Sodium Chloride 1,000 mls @ 999 mls/hr 09/06/24 22:15 09/06/24 23:31 Ns IV 09/06/24 23:15 Infused .Q1H1M ADELA Infusion Sodium Bicarbonate 150 meq/ 1,000 mls @ 100 mls/hr 09/06/24 23:00 09/07/24 15:39 Dextrose IV 09/07/24 08:59 Infused .Q10H ADELA Infusion Acetaminophen 1,000 mg in 100 mls @ 400 mls/hr 09/07/24 02:23 09/07/24 03:23 Ofirmev IV 09/07/24 02:37 Infused ONCE ONE Infusion Pantoprazole Sodium 80 mg 09/06/24 21:32 09/06/24 22:30 Pantoprazole Sodium 40 Mg/10 Ml Vial IVPUSH 09/06/24 21:33 80 mg ONCE ONE Administration Medical Decision Making Lab Data 09/07/24 17:11 09/07/24 03:43 Labs: Lab Results 09/06/24 09/06/24 09/06/24 Range/Units 20:12 21:59 21:59 WBC 6.9 (4.8-10.8) X10*3/uL RBC 2.12 L (4.20-5.50) X10*6/uL Hgb 6.2 L* (12.0-16.0) g/dl Hct 21.5 L (37.0-47.0) % MCV 101.4 H (80.0-98.0) fL MCH 29.2 (27.0-33.0) pg MCHC 28.8 L (31.0-35.0) g/dl RDW 16.4 H (11.0-16.0) % Plt Count 196 (160-400) X10*3/uL MPV 10.9 (9.4-12.3) fL Immature Gran % (Auto) 0.3 (0.0-0.4) % Neut % (Auto) 75.6 H (45-73) % Lymph % (Auto) 16.7 L (20-40) % [place] % (Auto) 5.5 (2-11) % Eos % (Auto) 1.5 (0-4) % Baso % (Auto) 0.4 (0-2) % Lymph # (Auto) 1.2 (1.2-4.9) X10*3/uL [facility] # (Auto) 0.4 (0.1-1.2) X10*3/uL Eos # (Auto) 0.1 (0.0-0.4) X10*3/uL Baso # (Auto) 0.0 (0.0-0.2) X10*3/uL Abs Immat Gran (auto) 0.02 (0.00-0.03) X10*3/uL Absolute Neuts (auto) 5.2 (2.0-8.3) x10*3/uL Absolute Nucleated RBC 0.000 (0.0-0.012) X10*3/uL Nucleated RBC % (auto) 0.0 (0.0-0.2) /100WBC PT 11.3 (10.9-12.4) SEC INR 1.0 (0.9-1.1) VBG pH (7.32-7.43) VBG pCO2 mmHg VBG pO2 mmHg VBG HCO3 (22-26) mmol/L VBG O2 Saturation VBG Base Excess mmol/L Sodium 144 (135-145) mmol/L Potassium 4.6 (3.3-5.1) mmol/L Chloride 121 H (96-108) mmol/L Carbon Dioxide 10 L* D (22-29) mmol/L Anion Gap 18 (12-20) BUN 101 H (9-16) mg/dL Creatinine 7.27 H* (0.5-1.4) mg/dL Estim Creat Clear Calc 8.4 Estimated GFR 6 Random Glucose 123 H (60-115) mg/dL Calcium 7.8 L (8.4-10.2) mg/dL Magnesium 2.0 (1.6-2.6) mg/dL Total Bilirubin 0.2 (0.0-1.0) mg/dL Direct Bilirubin < 0.2 (0.0-0.5) mg/dL AST 13 (5-31) U/L ALT 7 (0-31) U/L Alkaline Phosphatase 65 (39-117) U/L Total Protein 6.7 (6.5-8.0) g/dL Albumin 3.6 (3.5-5.0) g/dL Lipase 52 (8-78) U/L Stool Occult Blood (NEGATIVE) Blood Type A Positive Antibody Screen NEGATIVE Antigen Identification E Antigen - NEGATIVE K Antigen - NEGATIVE Crossmatch (AHG) 09/06/24 09/06/24 09/06/24 Range/Units 21:59 22:00 22:11 WBC (4.8-10.8) X10*3/uL RBC (4.20-5.50) X10*6/uL Hgb (12.0-16.0) g/dl Hct (37.0-47.0) % MCV (80.0-98.0) fL MCH (27.0-33.0) pg MCHC (31.0-35.0) g/dl RDW (11.0-16.0) % Plt Count (160-400) X10*3/uL MPV (9.4-12.3) fL Immature Gran % (Auto) (0.0-0.4) % Neut % (Auto) (45-73) % Lymph % (Auto) (20-40) % [facility] % (Auto) (2-11) % Eos % (Auto) (0-4) % Baso % (Auto) (0-2) % Lymph # (Auto) (1.2-4.9) X10*3/uL [facility] [place] # (Auto) (0.1-1.2) X10*3/uL Eos # (Auto) (0.0-0.4) X10*3/uL Baso # (Auto) (0.0-0.2) X10*3/uL Abs Immat Gran (auto) (0.00-0.03) X10*3/uL Absolute Neuts (auto) (2.0-8.3) x10*3/uL Absolute Nucleated RBC (0.0-0.012) X10*3/uL Nucleated RBC % (auto) (0.0-0.2) /100WBC PT (10.9-12.4) SEC INR (0.9-1.1) VBG pH 7.16 L* (7.32-7.43) VBG pCO2 30 mmHg VBG pO2 56 mmHg VBG HCO3 11 L (22-26) mmol/L VBG O2 Saturation TNP VBG Base Excess -15.8 mmol/L Sodium (135-145) mmol/L Potassium (3.3-5.1) mmol/L Chloride (96-108) mmol/L Carbon Dioxide (22-29) mmol/L Anion Gap (12-20) BUN (9-16) mg/dL Creatinine (0.5-1.4) mg/dL Estim Creat Clear Calc Estimated GFR Random Glucose (60-115) mg/dL Calcium (8.4-10.2) mg/dL Magnesium (1.6-2.6) mg/dL Total Bilirubin (0.0-1.0) mg/dL Direct Bilirubin (0.0-0.5) mg/dL AST (5-31) U/L ALT (0-31) U/L Alkaline Phosphatase (39-117) U/L Total Protein (6.5-8.0) g/dL Albumin (3.5-5.0) g/dL Lipase (8-78) U/L Stool Occult Blood POSITIVE (NEGATIVE) Blood Type Antibody Screen Antigen Identification c Antigen - NEGATIVE Crossmatch (AHG) See Detail Discharge Plan Discharge Clinical Impression: Anemia, GI bleed Patient Disposition: Admitted As Inpatient Interventions: Admission Worksheet (ED) Last Done: 09/07/24 14:35 Discharge Date/Time: 09/07/24 15:37
--- NOTE | 2024-09-06 19:13 | PC.NURSE ---
Patient's daughter reported to this RN at ED Triage/WR that Anh has a history of receiving blood transfusions. ALLAN Kwok notified in triage.
[2024-09-06 20:16] LABS: MANUAL DIFF FLAG NO
[2024-09-06 20:17] LABS: Basophils Percent Auto 0.4 % (0-2); Eosinophils Absolute Auto 0.1 X10*3/uL (0.0-0.4); Eosinophils Percent Auto 1.5 % (0-4); Hematocrit 21.5 % (37.0-47.0); Imm Gran Abs Auto 0.02 X10*3/uL (0.00-0.03); Imm Gran Pct Auto 0.3 % (0.0-0.4); Lymphocytes Absolute Auto 1.2 X10*3/uL (1.2-4.9); Lymphocytes Percent Auto 16.7 % (20-40); Mean Corpuscular HGB Conc 28.8 g/dl (31.0-35.0); Mean Corpuscular Hemoglobin 29.2 pg (27.0-33.0); Mean Corpuscular Volume 101.4 fL (80.0-98.0); Mean Platelet Volume 10.9 fL (9.4-12.3); Monocytes Absolute Auto 0.4 X10*3/uL (0.1-1.2); Monocytes Percent Auto 5.5 % (2-11); Neutrophils Absolute Auto 5.2 x10*3/uL (2.0-8.3); Neutrophils Percent Auto 75.6 % (45-73); Platelet Count 196 X10*3/uL (160-400); Red Blood Count 2.12 X10*6/uL (4.20-5.50); Red Cell Distribution Width 16.4 % (11.0-16.0); White Blood Count 6.9 X10*3/uL (4.8-10.8)
[2024-09-06 20:20] LABS: Hemoglobin 6.2 g/dl (12.0-16.0)
[2024-09-06 20:21] LABS: Prothrombin Time 11.3 SEC (10.9-12.4)
[2024-09-06 20:40] LABS: Alanine Aminotransferase 7 U/L (0-31); Albumin Level 3.6 g/dL (3.5-5.0); Alkaline Phosphatase 65 U/L (39-117); Anion Gap 18 (12-20); Aspartate Amino Transferase 13 U/L (5-31); Bilirubin Direct < 0.2 mg/dL (0.0-0.5); Bilirubin Total 0.2 mg/dL (0.0-1.0); Blood Urea Nitrogen 101 mg/dL (9-16); Calcium 7.8 mg/dL (8.4-10.2); Carbon Dioxide 10 mmol/L (22-29); Chloride 121 mmol/L (96-108); Creatinine Clr Calc Pharmacy 8.4; Estimated Glomerular Filt Rate 6; Glucose Random 123 mg/dL (60-115); Lipase 52 U/L (8-78); Potassium 4.6 mmol/L (3.3-5.1); Sodium 144 mmol/L (135-145); Total Protein 6.7 g/dL (6.5-8.0)
--- NOTE | 2024-09-06 21:06 | PC.NURSE ---
pt placed in ED room 6, MD osman notified of critical hgb
--- NOTE | 2024-09-06 21:22 | ED_ITS ---
HPI - Nausea/Vomiting/Diarrhea General Chief complaint: Nausea/Vomiting/Diarrhea Stated complaint: vomiting,weakness, ? abnormal labs Time Seen by Provider: 09/06/24 21:13 Source: patient Mode of arrival: ambulatory Limitations: no limitations History of Present Illness ED Provider: Dr. Roselyn Clark HPI Narrative: Patient comes to the emergency room complaining of nausea vomiting and diarrhea complaining of red stool. Patient states that she is known to have internal hemorrhoids, states dipping into bleed yesterday. Denies any abdominal pain. Patient states that she usually feels chronically fatigued but she can manage. Patient states that she started feeling a bit weaker yesterday. Related Data Previous Rx's ?Medication ?Instructions ?Recorded blood pressure monitor #1 ea 11/10/23 sitz bath #1 ea 11/13/23 Grab bar #1 ea 11/22/23 Shower Chair #1 ea 11/22/23 bed rail #1 ea 11/22/23 hand held shower #1 ea 11/22/23 pill box twice daily #1 ea 11/22/23 carvedilol 6.25 mg tablet 6.25 mg PO BID #180 tabs 06/23/24 ferrous sulfate 325 mg (65 mg 325 mg PO BID #180 tabs 07/04/24 iron) tablet,delayed release sevelamer HCl 800 mg tablet 800 mg PO TID 30 days #90 tabs 07/04/24 sodium bicarbonate 650 mg tablet 1,300 mg (2 x 650 mg) PO TID #180 07/04/24 tabs Allergies Allergy/AdvReac Type Severity Reaction Status Date / Time Penicillins Allergy Intermediate RASH Verified 09/06/24 19:08 Review of Systems 2 Review of Systems: Constitutional : No Weight loss, No Fever, No Chills, No Night Sweats, complaining of chronic fatigue ENT/Mouth : No Hearing loss, No Ear Pain, No Nasal Congestion, No Sinus Pain, No Hoarseness, No sore throat, No Rhinorrhea, No Swallowing Difficulty Eyes: No Eye Pain, No Swelling, No Redness, No Foreign Body, No Discharge, No Vision Changes Cardiovascular : No Chest Pain, No SOB, No Dyspnea on Exertion, No Orthopnea, No Edema, No Palpitations Respiratory : No Cough, No Sputum, No Wheezing, No Smoke Exposure, No Dyspnea Gastrointestinal : Complaining of nausea vomiting and diarrhea, no abdominal pain, complaining of rectal bleeding per patient's from internal hemorrhoids Genitourinary : no irregular bleeding, No Dysuria, No Urinary Frequency, No Hematuria, No Urinary Incontinence, No Urgency, No Flank Pain, No Urinary Flow Changes, No Hesitancy Musculoskeletal : No joint pain, No Myalgias, No Joint Swelling Skin : No Skin Lesions, No rash Neuro : No Weakness, No Numbness, No Paresthesias, No Loss of Consciousness, No Dizziness, No Headache Psych : No Anxiety/Panic, No Depression, No SI/HI/AH/VH, No Social Issues, Heme/Lymph: No Bruising, No Bleeding,No Lymphadenopathy Endocrine : No Polyuria, No Polydipsia, No Temperature Intolerance [facility] Past Medical History Medical History Anemia in chronic kidney disease (CKD) CKD (chronic kidney disease) stage 5, GFR less than 15 ml/min Anemia CKD (chronic kidney disease) Chronic systolic (congestive) heart failure Cardiomyopathy Essential hypertension Normocytic anemia Surgical History Hx of colonoscopy History of surgery Status post dilation and curettage History of abdominal surgery History of extraction of renal calculus History of tubal ligation Family History Family History Father Throat cancer Mother Hypertension Daughter In good health Daughter In good health Sister In good health Family/Other Breast cancer Social History Social History Household Members: Children Housing: Apartment Do you presently have visiting nurse or other home services: Yes (visiting nurse) Alcohol intake: never Patient Tobacco Use Status: Never used Tobacco Tobacco use type: Cigarette Years Smoked: 30 +/- e-Cigarette/Vaping Use: Never Used Second Hand Smoke Exposure: No Advance Directives: No Advance Directives Information Provided: No service: No Current occupational status: unemployed Cognitive needs: No Hearing needs: No Vision needs: No Physical Exam 2 Vital Signs: Vital Signs: Last Vital Signs Temp 97.0 F 09/06/24 19:03 Pulse 89 09/06/24 19:03 Resp 18 09/06/24 19:03 BP 137/46 L 09/06/24 19:03 Pulse Ox 100 09/06/24 19:03 O2 Del Method Room Air 09/06/24 19:03 BMI result Body Mass Index 29.7 Const: Other: Appearance: Alert. Oriented X3. No acute distress. Eyes: Pupils equal, round and reactive to light. ENT: Pharynx normal. Neck: Normal inspection. Neck supple. No lymph nodes noted. No crepitus CVS: Normal heart rate and rhythm. Pulses normal. Normal S1 and S2 Respiratory: No respiratory distress. Breath sounds normal. No Wheezing. No rales Abdomen: Soft and nontender. No rigidity. No distention. Digital rectal exam positive for bright red blood per rectum Skin: Skin warm and dry. Pale skin color. Normal skin turgor. Extremities: No lower extremity edema. No Lacerations. No Rash Neuro: Oriented X 3. No motor deficit. No sensory deficit. Moving all extremities. No slurred speech. CN 2 through 12 grossly intact Psych: calm, cooperative, normal affect Medical Decision Making Medical Decision Making MDM Narrative: My interpretation of labs: Patient's hemoglobin 6.2, hematocrit 21.5. My interpretation of chemistry, patient's BUN and creatinine elevated, creatinine 7.27, baseline for the patient but has gradually been getting worse. LFTs within normal limits, lipase normal Reviewing patient's medical record, in November of 2023, patient had an endoscopy and a colonoscopy. Endoscopy showed a hiatal hernia, grade a esophagitis. In the colonoscopy, there was blood in the rectum, likely from pending external and internal hemorrhoids. Prep was inadequate for polyp screening, recommended to repeat a colonoscopy in May of 2024 which patient did not go to her appointment. I discussed the labs with the patient, patient needs a blood transfusion. Patient is agreeable. I discussed with the patient the risks versus benefits of a blood transfusion, patient agreeable to proceed with the transfusion. Patient's vitals stable, blood pressure 137/46, heart rate 89, oxygen saturation 100% on room air. No signs of active GI bleed. I discussed the patient with Dr. Russo, patient being admitted Differential Diagnosis Differential Diagnoses: The differential diagnosis associated with the presentation includes (Upper GI bleed, lower GI bleed, internal hemorrhoids, iron deficiency anemia, enteritis, colitis) Admission/Observation Consideration of admission/observation: Escalation of care including admission/observation considered Consult Healthcare Provider Management of the patient was discussed with: Hospitalist Lab Data MDM Lab Attestation statement: I reviewed the patient's lab results. 09/06/24 20:12 09/06/24 20:12 Labs: Lab Results 09/06/24 Range/Units 20:12 WBC 6.9 (4.8-10.8) X10*3/uL RBC 2.12 L (4.20-5.50) X10*6/uL Hgb 6.2 L* (12.0-16.0) g/dl Hct 21.5 L (37.0-47.0) % MCV 101.4 H (80.0-98.0) fL MCH 29.2 (27.0-33.0) pg MCHC 28.8 L (31.0-35.0) g/dl RDW 16.4 H (11.0-16.0) % Plt Count 196 (160-400) X10*3/uL MPV 10.9 (9.4-12.3) fL Immature Gran % (Auto) 0.3 (0.0-0.4) % Neut % (Auto) 75.6 H (45-73) % Lymph % (Auto) 16.7 L (20-40) % [place] % (Auto) 5.5 (2-11) % Eos % (Auto) 1.5 (0-4) % Baso % (Auto) 0.4 (0-2) % Lymph # (Auto) 1.2 (1.2-4.9) X10*3/uL [place] # (Auto) 0.4 (0.1-1.2) X10*3/uL Eos # (Auto) 0.1 (0.0-0.4) X10*3/uL Baso # (Auto) 0.0 (0.0-0.2) X10*3/uL Abs Immat Gran (auto) 0.02 (0.00-0.03) X10*3/uL Absolute Neuts (auto) 5.2 (2.0-8.3) x10*3/uL Absolute Nucleated RBC 0.000 (0.0-0.012) X10*3/uL Nucleated RBC % (auto) 0.0 (0.0-0.2) /100WBC PT 11.3 (10.9-12.4) SEC INR 1.0 (0.9-1.1) Sodium 144 (135-145) mmol/L Potassium 4.6 (3.3-5.1) mmol/L Chloride 121 H (96-108) mmol/L Carbon Dioxide 10 L* D (22-29) mmol/L Anion Gap 18 (12-20) BUN 101 H (9-16) mg/dL Creatinine 7.27 H* (0.5-1.4) mg/dL Estim Creat Clear Calc 8.4 Estimated GFR 6 Random Glucose 123 H (60-115) mg/dL Calcium 7.8 L (8.4-10.2) mg/dL Magnesium 2.0 (1.6-2.6) mg/dL Total Bilirubin 0.2 (0.0-1.0) mg/dL Direct Bilirubin < 0.2 (0.0-0.5) mg/dL AST 13 (5-31) U/L ALT 7 (0-31) U/L Alkaline Phosphatase 65 (39-117) U/L Total Protein 6.7 (6.5-8.0) g/dL Albumin 3.6 (3.5-5.0) g/dL Lipase 52 (8-78) U/L Independent Historian Clinical information obtained from an independent historian. History obtained from or confirmed by: Other (Patient's daughter over the phone) Critical Care Time Critical Care Time Critical Care Time: Yes Total Critical Care Time: 60 Attestation: I have personally provided critical care time. Time includes review of lab data, radiology results, discussion with consultants, and monitoring for potential decompensation. Intervention performed as documented. Discharge Plan Discharge Clinical Impression: Anemia, GI bleed Patient Disposition: Admitted As Inpatient Prescriptions: No Action (DME) blood pressure monitor Kit See Rx Instructions .Route Qty: 1 0RF Rx Instructions: As directed carvedilol 6.25 mg tablet 6.25 mg PO BID Qty: 180 1RF sodium bicarbonate 650 mg tablet 1,300 mg PO TID Qty: 180 2RF ferrous sulfate 325 mg (65 mg iron) tablet,delayed release (DR/EC) 325 mg PO BID Qty: 180 1RF sevelamer HCl 800 mg tablet 800 mg PO TID 30 Days Qty: 90 3RF Rx Instructions: must administer with a meal/food (DME) sitz bath Kit See Rx Instructions .Route Qty: 1 0RF Rx Instructions: As directed (DME) bed rail See Rx Instructions .Route .MEDSUPPLY Qty: 1 0RF Rx Instructions: As directed (DME) hand held shower See Rx Instructions .Route .MEDSUPPLY Qty: 1 0RF Rx Instructions: As directed (DME) Grab bar Misc See Rx Instructions .Route Qty: 1 0RF Rx Instructions: As directed (DME) pill box twice daily See Rx Instructions .Route .MEDSUPPLY Qty: 1 0RF Rx Instructions: As directed (DME) Shower Chair Misc See Rx Instructions .Route Qty: 1 0RF Rx Instructions: with back Print Language: Citizen [place]
--- NOTE | 2024-09-06 21:51 | P.HPHOSP_ITS ---
History of Present Illness Date of Service: 09/06/24 <ALLAN Rodriguez - Last Filed: 09/06/24 22:36> Attending physician on admission: Noelle Russo <ALLAN Rodriguez - Last Filed: 09/06/24 22:36> Chief Complaint: N/V and bloody diarrhea <ALLAN Rodriguez - Last Filed: 09/06/24 22:36> Pt is a 59-year-old female with a PMH significant for?CKD stage 5 not on hemodialysis, HTN, HFrEF (LVEF 40-45% on 11/2023), chronic iron deficiency anemia, and hx of noncompliance with medications or follow up appointments who presents to the ED with?intractable diarrhea with bright red blood since yesterday at midnight. Pt reports also experienced some vomiting last night from midnight to 02:00. No hematemesis. No abdominal pain. Pt reports bright red blood per rectum from approximately 01:00 until earlier this morning. Last episode of diarrhea just prior to presentation to the ED. Reports experienced similar though much less severe episodes of diarrhea on 08/26 and . Has been feeling lightheaded, dizzy, and weak. Some increased SOB with exertion. No chest pain/pressure, palpitations. Denies fever or chills. In the ED pt had slightly soft BP of 137/46, vitals otherwise WNL and stable. Labs were significant for H&H 6.2/21.5, chloride 121, bicarb 10, BUN 101 and creatinine 7.27. Stool positive for occult blood. Pt was treated with Protonix and transfused 2 units PRBCs. Pt will be admitted to the hospital treatment and further evaluation of acute on chronic anemia secondary to possible LGIB. < ALLAN Rodriguez - Last Filed: 09/06/24 22:36> Review of Systems 2 Review of Systems: Negative except for that which is stated in the HPI <ALLAN Rodriguez - Last Filed: 09/06/24 22:36> [facility] Medical History: Medical History Anemia in chronic kidney disease (CKD) CKD (chronic kidney disease) stage 5, GFR less than 15 ml/min Anemia CKD (chronic kidney disease) Chronic systolic (congestive) heart failure Cardiomyopathy Essential hypertension Normocytic anemia <ALLAN Rodriguez - Last Filed: 09/06/24 22:36> Family History: Family History Father Throat cancer Mother Hypertension Daughter In good health Daughter In good health Sister In good health Family/Other Breast cancer <ALLAN Rodriguez - Last Filed: 09/06/24 22:36> Surgical History: Surgical History Hx of colonoscopy History of surgery Status post dilation and curettage History of abdominal surgery History of extraction of renal calculus History of tubal ligation <ALLAN Rodriguez - Last Filed: 09/06/24 22:36> Social History: Social History Household Members: Children Housing: Apartment Do you presently have visiting nurse or other home services: Yes (visiting nurse) Alcohol intake: never Patient Tobacco Use Status: Never used Tobacco Tobacco use type: Cigarette Years Smoked: 30 +/- Smoked in Last 30 Days: No e-Cigarette/Vaping Use: Never Used Second Hand Smoke Exposure: No Use of substances other than those prescribed or required for medical reasons: No Advance Directives: No Advance Directives Information Provided: No Nutrition Risks: No Nutritional Risk Patient : No service: No Current occupational status: unemployed Cognitive needs: No Hearing needs: No Vision needs: No <ALLAN Rodriguez - Last Filed: 09/06/24 22:36> Meds Allergies/Adverse reactions: Allergies Allergy/AdvReac Type Severity Reaction Status Date / Time Penicillins Allergy Intermediate RASH Verified 09/06/24 19:08 <ALLAN Rodriguez - Last Filed: 09/06/24 22:36> Physical Exam 2 Vital Signs and Narrative: Vital Signs: Last Vital Signs Temp 97.0 F 09/06/24 19:03 Pulse 89 09/06/24 19:03 Resp 18 09/06/24 19:03 BP 137/46 L 09/06/24 19:03 Pulse Ox 100 09/06/24 19:03 O2 Del Method Room Air 09/06/24 19:03 BMI result Body Mass Index 29.7 <ALLAN Rodriguez - Last Filed: 09/06/24 22:36> General: AOx3, pale, no acute distress Resp: CTA bilaterally CVS: S1, S2, RRR GI: +BS, NT, no distention Skin: Warm, dry. Neuro: Cranial nerves II-XII grossly intact bilaterally. Motor grossly intact bilaterally Extremities: No edema Psych: Appropriate affect <ALLAN Rodriguez Last Filed: 09/06/24 22:36> Results Labs CBC and Chem 7: 09/06/24 20:12 09/06/24 20:12 <ALLAN Rodriguez Last Filed: 09/06/24 22:36> Labs: Laboratory Results - last 24 hr 09/06/24 20:12 MCV 101.4 H MCH 29.2 MCHC 28.8 L RDW 16.4 H Plt Count 196 MPV 10.9 Immature Gran % (Auto) 0.3 Neut % (Auto) 75.6 H Lymph % (Auto) 16.7 L [place] % (Auto) 5.5 Eos % (Auto) 1.5 Baso % (Auto) 0.4 Lymph # (Auto) 1.2 [place] # (Auto) 0.4 Eos # (Auto) 0.1 Baso # (Auto) 0.0 Abs Immat Gran (auto) 0.02 Absolute Neuts (auto) 5.2 Absolute Nucleated RBC 0.000 Nucleated RBC % (auto) 0.0 PT 11.3 INR 1.0 Anion Gap 18 Estim Creat Clear Calc 8.4 Estimated GFR 6 Random Glucose 123 H Calcium 7.8 L Magnesium 2.0 Total Bilirubin 0.2 Direct Bilirubin < 0.2 AST 13 ALT 7 Alkaline Phosphatase 65 Total Protein 6.7 Albumin 3.6 Lipase 52 <ALLAN Rodriguez Last Filed: 09/06/24 22:36> Assessment and Plan (1) Acute on chronic anemia: Status: Resolved <ALLAN Rodriguez Last Filed: 09/06/24 22:36> Pt is a 59-year-old female with a PMH significant for?CKD stage 5 not on hemodialysis, HTN, HFrEF (LVEF 40-45% on 11/2023), chronic iron deficiency anemia, and hx of noncompliance with medications or follow up appointments who presents to the ED with?intractable diarrhea with bright red blood since yesterday at midnight. Pt will be admitted to the hospital treatment and further evaluation of acute on chronic anemia secondary to possible LGIB. Acute on chronic anemia H&H 6.2/21.5, reported intractable hematochezia, stool positive for occult blood Possibly secondary to LGIB Will transfuse 2 units PRBCs GI consult Clear liquid diet for now, NPO after midnight for possible colonoscopy in the morning Protonix b.i.d., IVF, antiemetics p.r.n. Follow CBC CKD 5 Creatinine 7.27, BUN 101 [address]icarb [address] Betancur, has not yet started hemodialysis We will give sodium bicarbonate IV x1 Nephrology consult Follow BMP HTN BP soft likely secondary to hypovolemia Hold carvedilol for now, resume as warranted Full Code Attending:?Dr. Russo DVT Prophylaxis: Pneumatic compression due to acute anemia Pt will require a hospitalization of at least two nights for treatment of?acute on chronic anemia requiring transfusion. Pt will require close monitoring of CBC as well as specialist consultation with Nephrology and GI for possible colonoscopy to evaluate for source of bleeding. <ALLAN Rodriguez - Last Filed: 09/06/24 22:36> Pt is a 59-year-old female with a PMH significant for?CKD stage 5 not on hemodialysis, HTN, HFrEF (LVEF 40-45% on 11/2023), chronic iron deficiency anemia, and hx of noncompliance with medications or follow up appointments who presents to the ED with?intractable diarrhea with bright red blood since yesterday at midnight. Pt will be admitted to the hospital treatment and further evaluation of acute on chronic anemia secondary to possible LGIB. Acute on chronic anemia H&H 6.2/21.5, reported intractable hematochezia, stool positive for occult blood Possibly secondary to LGIB Will transfuse 2 units PRBCs GI consult Clear liquid diet for now, NPO after midnight for possible colonoscopy in the morning Protonix b.i.d., IVF, antiemetics p.r.n. Follow CBC CKD 5 with met acidosis Creatinine 7.27, BUN 101 bicarb [address] Betancur, has not yet started hemodialysis We will give sodium bicarbonate IV x1 Met acidosis due to ckd and diarrhea Nephrology consult Follow BMP HTN BP soft likely secondary to hypovolemia Hold carvedilol for now, resume as warranted Full Code Attending:?Dr. Russo DVT Prophylaxis: Pneumatic compression due to acute anemia Pt will require a hospitalization of at least two nights for treatment of?acute on chronic anemia requiring transfusion. Pt will require close monitoring of CBC as well as specialist consultation with Nephrology and GI for possible colonoscopy to evaluate for source of bleeding. <Noelle Russo MD - Last Filed: 09/07/24 02:24> Quality Stroke Does the patient have a stroke diagnosis?: No <ALLAN Rodriguez - Last Filed: 09/06/24 22:36> VTE Prior VTE?: No <ALLAN Rodriguez - Last Filed: 09/06/24 22:36> VTE Risk Level:: Medical - moderate - high <ALLAN Rodriguez - Last Filed: 09/06/24 22:36> VTE Device Contraindication: N/A - Device Ordered <ALLAN Rodriguez - Last Filed: 09/06/24 22:36> VTE Drug Contraindication: Treatment Not Indicated <ALLAN Rodriguez - Last Filed: 09/06/24 22:36>
[2024-09-06 22:09] LABS: OBS Int Ctl Valid YES; OBS1 POSITIVE (NEGATIVE)
[2024-09-06 22:18] LABS: VBG Base Excess -15.8 mmol/L; VBG HCO3 11 mmol/L (22-26); VBG pCO2 30 mmHg; VBG pH 7.16 (7.32-7.43); VBG pO2 56 mmHg
[2024-09-06 22:19] LABS: Venous Blood Gas Refer to POC result
[2024-09-06] MEDS: 0.9 % Sodium Chloride 1,000 ML 999 ML IV (22:30)
[2024-09-06] MEDS: Pantoprazole Sodium 40 MG/10 ML VIAL 80 MG IVPUSH (22:30)
[2024-09-06] MEDS: Sodium Bicarbonate 8.4% 150 MEQ in Dextrose 5 % 850 ML 100 MEQ IV (23:08)
--- NOTE | 2024-09-06 23:14 | PC.NURSE ---
Pt ambulatory with steady gait to the bathroom.
[2024-09-06 23:20] VITALS: BP 149/76; PULSE 78; RESP 18; TEMP 36.5; O2SAT 100
[2024-09-07] VITALS (20 sets, daily range): BP systolic 149–189; BP diastolic 69–91; PULSE 62–88; RESP 13–21; TEMP 36.1–37; O2SAT 95–100
[2024-09-07] MEDS: ondansetron HCL 4 MG/2 ML VIAL IVPUSH ×2 (01:05→20:35)
[2024-09-07] MEDS: Acetaminophen 1,000 MG/100 ML PIGGYBACK 400 MG IV (02:59)
[2024-09-07 03:47] LABS: MANUAL DIFF FLAG NO
[2024-09-07 03:51] LABS: Basophils Percent Auto 0.5 % (0-2); Eosinophils Absolute Auto 0.1 X10*3/uL (0.0-0.4); Eosinophils Percent Auto 1.3 % (0-4); Hematocrit 21.3 % (37.0-47.0); Imm Gran Abs Auto 0.01 X10*3/uL (0.00-0.03); Imm Gran Pct Auto 0.2 % (0.0-0.4); Lymphocytes Absolute Auto 1.8 X10*3/uL (1.2-4.9); Mean Corpuscular HGB Conc 31.5 g/dl (31.0-35.0); Mean Corpuscular Hemoglobin 29.8 pg (27.0-33.0); Mean Corpuscular Volume 94.7 fL (80.0-98.0); Mean Platelet Volume 10.7 fL (9.4-12.3); Monocytes Absolute Auto 0.4 X10*3/uL (0.1-1.2); Monocytes Percent Auto 6.2 % (2-11); Neutrophils Absolute Auto 3.6 x10*3/uL (2.0-8.3); Neutrophils Percent Auto 60.8 % (45-73); Platelet Count 175 X10*3/uL (160-400); Red Blood Count 2.25 X10*6/uL (4.20-5.50); Red Cell Distribution Width 15.2 % (11.0-16.0); White Blood Count 5.9 X10*3/uL (4.8-10.8)
[2024-09-07 03:55] LABS: VBG Base Excess -14.5 mmol/L; VBG HCO3 11 mmol/L (22-26); VBG pCO2 24 mmHg; VBG pH 7.25 (7.32-7.43); VBG pO2 62 mmHg
[2024-09-07 03:55] LABS: Venous Blood Gas Refer to POC result
[2024-09-07 03:59] LABS: Hemoglobin 6.7 g/dl (12.0-16.0)
[2024-09-07 04:05] LABS: Anion Gap 16 (12-20); Blood Urea Nitrogen 91 mg/dL (9-16); Calcium 7.4 mg/dL (8.4-10.2); Carbon Dioxide 11 mmol/L (22-29); Chloride 123 mmol/L (96-108); Creatinine Clr Calc Pharmacy 8.7; Estimated Glomerular Filt Rate 6; Glucose Random 99 mg/dL (60-115); Potassium 4.2 mmol/L (3.3-5.1); Sodium 146 mmol/L (135-145)
[2024-09-07] MEDS: Pantoprazole Sodium 40 MG/10 ML VIAL IVPUSH ×2 (07:08→16:00)
--- NOTE | 2024-09-07 08:40 | PHA.MEDREC ---
Addendum entered by Ariel Alonso RPh 09/07/24 09:57: MED REC CHECKED BY [facility] Original Note: Pharmacy Consult ? Medication Reconciliation Pharmacy has completed the medication reconciliation. Spoke with patient through an cylinder press operator. She last took her medications yesterday afternoon.
--- NOTE | 2024-09-07 13:14 | MHC.CM.PN ---
CM MET WITH PT WITH A AMBULANCE DRIVER PT LIVES ALONE AND HER DAUGHTER IS HER [employer] M-F HCP ON FILE AND VERIFIED SHE CONFIRMS HER PCP IS [facility] DELIVERED DCP: HOME RESUME [employer] SERVICES DAUGHTER TO TRANSPORT PT GIVES PERMISSION FOR HER DAUGHTER/ROUTE SALESMAN, IRIS, TO BE CONTACTED PRN IRIS DOES NOT REQUIRE AN REMOTE ENCODING CENTER MANAGER PER PTS REPORT
--- NOTE | 2024-09-07 14:15 | HO.PM.IMPN ---
Subjective Subjective Date of Service: 09/07/24 Review of Systems Follow up ANATOLIY on CKD. GI Bleed no pain or discomfort no active bleeding Physical Exam Vital Signs: Vital Signs: Last Vital Signs Temp 98.1 F 09/07/24 12:25 Pulse 64 09/07/24 12:25 Resp 14 09/07/24 12:25 BP 175/87 H 09/07/24 12:25 Pulse Ox 100 09/07/24 06:57 O2 Del Method Room Air 09/07/24 06:57 BMI result Body Mass Index 29.7 Appearing in no acute distress lung sounds are clear to auscultation heart regular rate rhythm, clear S1, S2 positive bowel sounds, abdomen is soft, nontender neuro patient is alert x3, no focal deficits Objective Data Active Medications Acetaminophen (Acetaminophen 325 Mg Tablet) 650 mg PO Q6H PRN PRN Reason: Pain, Mild 1-3,fever,headache Calcium Carbonate (Calcium Carbonate 750 Mg Tab.Chew) 750 mg PO Q4H PRN PRN Reason: Heartburn Magnesium Hydroxide (Milk Of Magnesia 30 Ml Oral.Susp) 30 ml PO DAILY PRN PRN Reason: Constipation Melatonin (Melatonin 3 Mg Tablet) 6 mg PO BEDTIME PRN PRN Reason: Insomnia Ondansetron HCl (Ondansetron Hcl 4 Mg/2 Ml Vial) 4 mg IVPUSH Q8H PRN PRN Reason: Nausea and Vomiting Last Admin: 09/07/24 01:05 Dose: 4 mg Documented By: MIGDALIA Pantoprazole Sodium (Pantoprazole Sodium 40 Mg/10 Ml Vial) 40 mg IVPUSH BID@0630,1630 [facility] Last Admin: 09/07/24 07:08 Dose: 40 mg Documented By: MIGDALIA Sodium Chloride (0.9 % Sodium Chloride Flush 3 Ml Syringe) 3 ml IVFLUSH QSHIFT [facility] Last Admin: 09/07/24 09:49 Dose: Not Given Documented By: JUAN Non-Admin Reason: IV Running Labs 09/07/24 03:43 09/07/24 03:43 Labs: Laboratory Results - last 24 hr 09/06/24 09/06/24 09/06/24 20:12 21:59 22:00 MCV 101.4 H MCH 29.2 MCHC 28.8 L RDW 16.4 H Plt Count 196 MPV 10.9 Immature Gran % (Auto) 0.3 Neut % (Auto) 75.6 H Lymph % (Auto) 16.7 L [place] % (Auto) 5.5 Eos % (Auto) 1.5 Baso % (Auto) 0.4 Lymph # (Auto) 1.2 [place] # (Auto) 0.4 Eos # (Auto) 0.1 Baso # (Auto) 0.0 Abs Immat Gran (auto) 0.02 Absolute Neuts (auto) 5.2 Absolute Nucleated RBC 0.000 Nucleated RBC % (auto) 0.0 PT 11.3 INR 1.0 VBG pH VBG pCO2 VBG pO2 VBG HCO3 VBG O2 Saturation VBG Base Excess Anion Gap 18 Estim Creat Clear Calc 8.4 Estimated GFR 6 Random Glucose 123 H Calcium 7.8 L Magnesium 2.0 Total Bilirubin 0.2 Direct Bilirubin < 0.2 AST 13 ALT 7 Alkaline Phosphatase 65 Total Protein 6.7 Albumin 3.6 Lipase 52 Stool Occult Blood POSITIVE Blood Type A Positive Antibody Screen NEGATIVE Crossmatch ([facility]) See Detail 09/06/24 09/07/24 09/07/24 22:11 03:43 03:49 MCV 94.7 D MCH 29.8 MCHC 31.5 RDW 15.2 Plt Count 175 MPV 10.7 Immature Gran % (Auto) 0.2 Neut % (Auto) 60.8 Lymph % (Auto) 31.0 [place] % (Auto) 6.2 Eos % (Auto) 1.3 Baso % (Auto) 0.5 Lymph # (Auto) 1.8 [place] # (Auto) 0.4 Eos # (Auto) 0.1 Baso # (Auto) 0.0 Abs Immat Gran (auto) 0.01 Absolute Neuts (auto) 3.6 Absolute Nucleated RBC 0.000 Nucleated RBC % (auto) 0.0 PT INR VBG pH 7.16 L* 7.25 L VBG pCO2 30 24 VBG pO2 56 62 VBG HCO3 11 L 11 L VBG O2 Saturation TNP TNP VBG Base Excess -15.8 -14.5 Anion Gap 16 Estim Creat Clear Calc 8.7 Estimated GFR 6 Random Glucose 99 Calcium 7.4 L Magnesium Total Bilirubin Direct Bilirubin AST ALT Alkaline Phosphatase Total Protein Albumin Lipase Stool Occult Blood Blood Type Antibody Screen Crossmatch ([facility]) Assessment and Plan (1) GI bleed: Status: Acute Plan 59-year-old female with a PMH significant for?CKD stage 5 not on hemodialysis, HTN, HFrEF (LVEF 40-45% on 11/2023), chronic iron deficiency anemia, and hx of noncompliance with medications or follow up appointments who presents to the ED with?intractable diarrhea with bright red blood since yesterday at midnight. Pt admitted to the hospital for treatment and further evaluation of acute on chronic anemia secondary to possible LGIB. Acute on chronic anemia H&H 6.2/21.5, reported intractable hematochezia, stool positive for occult blood Possibly secondary to LGIB 4 units PRBC tx GI consult pending Clear liquid diet for now, NPO after midnight for possible colonoscopy in the morning Protonix b.i.d., IVF, antiemetics p.r.n. Follow CBC CKD 5 Creatinine 7.27, BUN 101 bicarb [address] Betancur, has not yet started hemodialysis sodium bicarbonate IV x1, continue cont IV Nephrology consult Follow BMP chronic acidosis secondary to renal failure HTN BP soft likely secondary to hypovolemia Hold carvedilol for now, resume as warranted Full Code DVT Prophylaxis: Pneumatic compression due to acute anemia Quality Stroke Does the patient have a stroke diagnosis?: No VTE Prior VTE?: No VTE Risk Level:: Medical - moderate - high VTE Device Contraindication: N/A - Device Ordered VTE Drug Contraindication: Treatment Not Indicated
[2024-09-07] MEDS: Sodium Bicarbonate 8.4% 50 MEQ in Dextrose 5 % 950 ML 150 MEQ IV ×2 (15:21→22:02)
[2024-09-07] MEDS: Sevelamer Carbonate Tablet 800 MG TABLET PO ×2 (15:21→20:35)
[2024-09-07] MEDS: Sodium Bicarbonate 650 MG TABLET 1300 MG PO ×2 (15:21→20:35)
[2024-09-07] MEDS: 0.9 % Sodium Chloride Flush 3 ML SYRINGE IVFLUSH (16:01)
[2024-09-07 17:18] LABS: MANUAL DIFF FLAG NO
[2024-09-07 17:25] LABS: Basophils Absolute Auto 0.1 X10*3/uL (0.0-0.2); Basophils Percent Auto 0.7 % (0-2); Eosinophils Absolute Auto 0.1 X10*3/uL (0.0-0.4); Eosinophils Percent Auto 1.9 % (0-4); Hematocrit 33.6 % (37.0-47.0); Hemoglobin 11.4 g/dl (12.0-16.0); Imm Gran Abs Auto 0.03 X10*3/uL (0.00-0.03); Imm Gran Pct Auto 0.4 % (0.0-0.4); Lymphocytes Absolute Auto 1.7 X10*3/uL (1.2-4.9); Mean Corpuscular HGB Conc 33.9 g/dl (31.0-35.0); Mean Corpuscular Hemoglobin 30.3 pg (27.0-33.0); Mean Corpuscular Volume 89.4 fL (80.0-98.0); Mean Platelet Volume 11.2 fL (9.4-12.3); Monocytes Absolute Auto 0.6 X10*3/uL (0.1-1.2); Monocytes Percent Auto 8.3 % (2-11); Neutrophils Absolute Auto 4.5 x10*3/uL (2.0-8.3); Neutrophils Percent Auto 64.7 % (45-73); PLT CLUMP 1; Red Blood Count 3.76 X10*6/uL (4.20-5.50); Red Cell Distribution Width 15.4 % (11.0-16.0); SCAN SMEAR FLAG 1
[2024-09-07 17:59] LABS: Platelet Count 123 X10*3/uL (160-400)
--- NOTE | 2024-09-07 18:52 | P.EN_ITS ---
Event Note Date of Service: 09/07/24 Event Note: GI Consult-History via patient with a medical radiation tech, her RN, and from the EMR Imp: Acute lower GI bleed with some associated preceding diarrhea for about 24 hours. She had a colonoscopy with Dr. Singh in 11/2023 but this was very limited due to a poor prep. She has had no diarrhea nor any sign of bleeding since admission. Her abdominal exam is benign and she appears well. She denies abdominal pain, N/V, melena, antibiotics use, travel, ill contacts, or NSAIDs use. She is s/p 4u PRBC's. Diff dx: Diverticular bleed, ischemic/infectious colitis, neoplasm Rec: Once she has been seen by Renal I would recommend a colonoscopy later this week with hopefully an adequate cleanout. I will keep her on clear liquids for the time being in that regard. I don't think an upper endo is needed. I will advise Dr. Singh of her admission so she can assume her care tomorrow. D/W patient in detail and she is comfortable with this plan. Thanks Time Spent With Patient Time: Total time managing care of this patient today ____ minutes.
[2024-09-07] MEDS: carvediloL 6.25 MG TABLET PO (20:35)
--- NOTE | 2024-09-07 23:39 | CONS_ITS ---
DATE OF SERVICE: 09/07/2024 REASON FOR CONSULTATION: Lower GI bleeding and anemia. HISTORY OF PRESENT ILLNESS: This has been obtained from the patient with a medical office specialist, from her nurse, and from the medical record. The patient is a 59-year-old female, who describes being in her usual state of health up until yesterday when she developed the onset of diarrhea associated with a large amount of fresh red blood on multiple occasions. She finally came to the ER for evaluation. During the time at home with her diarrhea and bleeding, she did not have any nausea, vomiting, abdominal pain, nor melena. Prior to yesterday, she reports that she had been feeling basically well and at her baseline. She does not use any chronic aspirin, NSAIDs, tobacco, nor alcohol. She denies any recent antibiotic use, ill contacts, nor travel. Since admission here to the hospital, she has had no further bleeding. She has received 4 units of blood with an appropriate rise in her hemoglobin. She presently feels well and is hungry. She denies any abdominal pain. Her past history is notable for having undergone an upper endoscopy and colonoscopy with Dr. Singh in November of 2023. This was done for the evaluation of anemia as well. The upper endoscopy revealed some evidence of distal esophagitis, and a large hiatal hernia. Duodenal biopsies were negative celiac disease and esophageal biopsies revealed only inflammation, but no sign of any Cisse esophagus. She did undergo a colonoscopy on that day as well, which was very limited due to a very poor prep by the description. She was noted to have some internal hemorrhoids. MEDICATIONS: Include sodium bicarbonate, Sevelamer, IV pantoprazole, Zofran p.r.n., milk of magnesia p.r.n., melatonin p.r.n., carvedilol, Tums, and acetaminophen. PAST MEDICAL HISTORY: Chronic renal failure followed by Dr. Betancur. Upper endoscopy and colonoscopy as described above due to anemia last November. She does have a history of hypertension as well as anemia. She does have a history of noncompliance with medications and followup as well. She denies history of stroke or diabetes. She describes some type of kidney surgery. SOCIAL HISTORY: She does not smoke nor use any significant amounts of alcohol. FAMILY HISTORY: Noncontributory. REVIEW OF SYSTEMS: CONSTITUTIONAL: She was feeling poorly yesterday, but does feel better today. Her appetite is better today. SKIN: Without rash or pruritus. CARDIAC: No chest pain. PULMONARY: No coughing or hemoptysis. GI: As above. NEUROLOGIC: No headache or seizures. PHYSICAL EXAMINATION: GENERAL: The patient is a pleasant alert comfortable-appearing female. SKIN: Warm and dry. HEENT: Anicteric sclerae. Moist mucous membranes. NECK: Supple. CHEST: Clear. CARDIAC: Normal S1, S2. ABDOMEN: Soft, nondistended, nontender without mass. LABORATORY DATA: Admission hemoglobin was 6.2. It had actually been 6.5 back in August. Hemoglobin after her 4 units of blood is up to 11.4. Her MCV is normal. White blood cell count 7000 with a platelet count 123,000. PT 11.3, INR 1.0. Sodium 146, potassium 4.2, chloride 123, CO2 of 11, BUN 91, creatinine 7.0, calcium 7.4. LFTs and lipase were normal. IMPRESSION: Given the patient's clinical history, this seems to be an acute lower gastrointestinal bleed in association with a significant chronic anemia. This may represent some bleeding from diverticular disease, but other etiologies should be excluded such as ischemic or infectious colitis, polyps, or neoplasm given the very limited exam last November. At this point, she appears very stable without any signs of active bleeding and her abdominal exam is benign. She has not had any particular upper GI complaints at this time. I did review with the patient in detail that she will need another colonoscopy with a better clean out during this admission. However, I advised that it will be important that the inking machine tender sees her first to make any recommendations in that regard prior to having her undergo a bowel cleanout and procedure. At this point, I would keep her on a clear liquid diet in hopes of allowing for better cleanout once the colonoscopy is performed. I did advise the patient of her need for colonoscopy and that she will be followed up by Dr. Singh as she had seen her in the past. The patient understood this and was comfortable with the plan. Thank you for the consultation. MD JOANA Rossi/NAVEED / [phone]
[2024-09-08] VITALS (14 sets, daily range): BP systolic 133–184; BP diastolic 58–92; PULSE 60–190; RESP 16–20; TEMP 36.2–37.1; O2SAT 95–100
--- NOTE | 2024-09-08 | ECG_ITS ---
Test Reason : high rate Blood Pressure : / mmHG Vent. Rate : 185 BPM Atrial Rate : 000 BPM P-R Int : 000 ms QRS Dur : 086 ms QT Int : 262 ms P-R-T Axes : 000 006 229 degrees QTc Int : 459 ms Atrial fibrillation with rapid ventricular response Minimal voltage criteria for LVH, may be normal variant ( Дмитрий product ) Marked ST abnormality, possible inferior subendocardial injury Marked ST abnormality, possible anterolateral subendocardial injury Abnormal ECG When compared with ECG of 09-NOV-2023 00:36, Significant changes have occurred Referred By: Hanna Post Electronically Signed By:HEAVEN ALVAREZ
[2024-09-08] MEDS: hydrALAZINE HCl 20 MG/ML VIAL IVPUSH (04:28)
[2024-09-08] MEDS: Sodium Bicarbonate 8.4% 50 MEQ in Dextrose 5 % 950 ML 150 MEQ IV ×2 (04:28→11:25)
[2024-09-08] MEDS: Acetaminophen 325 MG TABLET 650 MG PO ×3 (05:39→21:29)
[2024-09-08] MEDS: ondansetron HCL 4 MG/2 ML VIAL IVPUSH ×2 (05:39→13:58)
[2024-09-08] MEDS: Pantoprazole Sodium 40 MG/10 ML VIAL IVPUSH ×2 (05:40→16:34)
[2024-09-08] MEDS: carvediloL 6.25 MG TABLET PO ×2 (08:12→21:28)
[2024-09-08] MEDS: Sodium Bicarbonate 650 MG TABLET 1300 MG PO ×3 (08:12→21:28)
[2024-09-08] MEDS: 0.9 % Sodium Chloride Flush 3 ML SYRINGE IVFLUSH ×3 (08:12→21:29)
[2024-09-08] MEDS: Sevelamer Carbonate Tablet 800 MG TABLET PO ×3 (08:12→21:29)
--- NOTE | 2024-09-08 08:26 | P.PNIM_ITS ---
Subjective Subjective Date of Service: 09/08/24 Review of Systems Follow up ANATOLIY on CKD. GI Bleed no pain or discomfort no active bleeding declining lab work Physical Exam 2 Vital Signs: Vital Signs: Last Vital Signs Temp 97.1 F 09/08/24 07:27 Pulse 94 09/08/24 07:27 Resp 16 09/08/24 07:27 BP 137/75 09/08/24 07:27 Pulse Ox 97 09/08/24 07:27 O2 Del Method Room Air 09/08/24 07:27 BMI result Body Mass Index 29.7 Appearing in no acute distress lung sounds are clear to auscultation heart regular rate rhythm, clear S1, S2 positive bowel sounds, abdomen is soft, nontender neuro patient is alert x3, no focal deficits Objective Data Active Medications Acetaminophen (Acetaminophen 325 Mg Tablet) 650 mg PO Q6H PRN PRN Reason: Pain, Mild 1-3,fever,headache Last Admin: 09/08/24 05:39 Dose: 650 mg Documented By: FE Calcium Carbonate (Calcium Carbonate 750 Mg Tab.Chew) 750 mg PO Q4H PRN PRN Reason: Heartburn Carvedilol (Carvedilol 6.25 Mg Tablet) 6.25 mg PO BID [facility]; Protocol Last Admin: 09/08/24 08:12 Dose: 6.25 mg Documented By: DANIEL Sodium Bicarbonate 50 meq/ (Dextrose) 1,000 mls @ 150 mls/hr IV .Q6H40M [facility] Last Admin: 09/08/24 04:28 Dose: 150 mls/hr Documented By: FE Magnesium Hydroxide (Milk Of Magnesia 30 Ml Oral.Susp) 30 ml PO DAILY PRN PRN Reason: Constipation Melatonin (Melatonin 3 Mg Tablet) 6 mg PO BEDTIME PRN PRN Reason: Insomnia Ondansetron HCl (Ondansetron Hcl 4 Mg/2 Ml Vial) 4 mg IVPUSH Q8H PRN PRN Reason: Nausea and Vomiting Last Admin: 09/08/24 05:39 Dose: 4 mg Documented By: FE Pantoprazole Sodium (Pantoprazole Sodium 40 Mg/10 Ml Vial) 40 mg IVPUSH BID@0630,1630 [facility] Last Admin: 09/08/24 05:40 Dose: 40 mg Documented By: FE Sevelamer Carbonate (Sevelamer Carbonate Tablet 800 Mg Tablet) 800 mg PO TID [facility] Last Admin: 09/08/24 08:12 Dose: 800 mg Documented By: DANIEL Sodium Bicarbonate (Sodium Bicarbonate 650 Mg Tablet) 1,300 mg PO TID [facility] Last Admin: 09/08/24 08:12 Dose: 1,300 mg Documented By: DANIEL Sodium Chloride (0.9 % Sodium Chloride Flush 3 Ml Syringe) 3 ml IVFLUSH QSHIFT [facility] Last Admin: 09/08/24 08:12 Dose: 3 ml Documented By: DANIEL Labs 09/07/24 17:11 09/07/24 03:43 Labs: Laboratory Results - last 24 hr 09/06/24 09/06/24 09/06/24 21:59 21:59 21:59 MCV MCH MCHC RDW Plt Count MPV Immature Gran % (Auto) Neut % (Auto) Lymph % (Auto) [place] % (Auto) Eos % (Auto) Baso % (Auto) Lymph # (Auto) [place] # (Auto) Eos # (Auto) Baso # (Auto) Abs Immat Gran (auto) Absolute Neuts (auto) Absolute Nucleated RBC Nucleated RBC % (auto) Blood Type A Positive Antibody Screen NEGATIVE Antigen Identification E Antigen - NEGATIVE K Antigen - NEGATIVE c Antigen - NEGATIVE Crossmatch (AHG) See Detail 09/07/24 17:11 MCV 89.4 D MCH 30.3 MCHC 33.9 RDW 15.4 Plt Count 123 L D MPV 11.2 Immature Gran % (Auto) 0.4 Neut % (Auto) 64.7 Lymph % (Auto) 24.0 [place] % (Auto) 8.3 Eos % (Auto) 1.9 Baso % (Auto) 0.7 Lymph # (Auto) 1.7 [place] # (Auto) 0.6 Eos # (Auto) 0.1 Baso # (Auto) 0.1 Abs Immat Gran (auto) 0.03 Absolute Neuts (auto) 4.5 Absolute Nucleated RBC 0.000 Nucleated RBC % (auto) 0.0 Blood Type Antibody Screen Antigen Identification Crossmatch (AHG) Assessment and Plan (1) GI bleed: Status: Acute Plan 59-year-old female with a PMH significant for?CKD stage 5 not on hemodialysis, HTN, HFrEF (LVEF 40-45% on 11/2023), chronic iron deficiency anemia, and hx of noncompliance with medications or follow up appointments who presents to the ED with?intractable diarrhea with bright red blood since yesterday at midnight. Pt admitted to the hospital for treatment and further evaluation of acute on chronic anemia secondary to possible LGIB. Acute on chronic anemia H&H 6.2/21.5, reported intractable hematochezia, stool positive for occult blood Possibly secondary to LGIB s/p 4 units PRBC, HH now stable GI consult> plan for colo, keep on clear diet , needs nephro clearance Protonix b.i.d., IVF, antiemetics p.r.n. CKD 5 Creatinine 7.27, BUN [address]icar[address] Betancur, has not yet started hemodialysis sodium bicarbonate IV x1, continue cont IV Nephrology following Follow BMP chronic acidosis secondary to renal failure HTN BP soft likely secondary to hypovolemia carvedilol Full Code DVT Prophylaxis: Pneumatic compression due to acute anemia Quality Stroke Does the patient have a stroke diagnosis?: No VTE Prior VTE?: No VTE Risk Level:: Medical - moderate - high VTE Device Contraindication: N/A - Device Ordered VTE Drug Contraindication: Treatment Not Indicated
--- NOTE | 2024-09-08 08:44 | PM.CNNEP ---
History of Present Illness Reason for Consult Consult date: 09/08/24 Reason for consult: CKD Chief Complaint Chief complaint: Gi bleed History of Present Illness Narrative: 59-year-old female with a PMH significant for?CKD stage 5 not on hemodialysis, HTN, HFrEF (LVEF 40-45% on 11/2023), chronic iron deficiency anemia, and hx of noncompliance with medications or follow up appointments who presents to the ED with?intractable diarrhea with bright red blood since yesterday at midnight. Pt reports also experienced some vomiting last night from midnight to 02:00. No hematemesis. No abdominal pain. Pt reports bright red blood per rectum Advanced CKD approaching ESRD Cr close to baseline Review of Systems Constitutional: Denies fever(s) and Denies weight loss Cardiovascular: Denies chest pain Respiratory: Denies cough and Denies hemoptysis Gastrointestinal: Denies abdominal pain and Denies diarrhea Musculoskeletal: Denies back pain Denies focal weakness PMFSH Past Medical History Medical History Anemia in chronic kidney disease (CKD) CKD (chronic kidney disease) stage 5, GFR less than 15 ml/min Anemia CKD (chronic kidney disease) Chronic systolic (congestive) heart failure Cardiomyopathy Essential hypertension Normocytic anemia Family History Family History Father Throat cancer Mother Hypertension Daughter In good health Daughter In good health Sister In good health Family/Other Breast cancer Surgical History Surgical History Hx of colonoscopy History of surgery Status post dilation and curettage History of abdominal surgery History of extraction of renal calculus History of tubal ligation Social History Social History Household Members: None Housing: Apartment Do you presently have visiting nurse or other home services: Yes ([employer]) Alcohol intake: never Patient Tobacco Use Status: Never used Tobacco Tobacco use type: Cigarette Years Smoked: 30 +/- e-Cigarette/Vaping Use: Never Used Second Hand Smoke Exposure: No service: No Current occupational status: unemployed Cognitive needs: No Hearing needs: No Vision needs: No Meds Allergies Allergy/AdvReac Type Severity Reaction Status Date / Time Penicillins Allergy Intermediate RASH Verified 09/06/24 19:08 Active Medications: Current Medications Acetaminophen (Acetaminophen 325 Mg Tablet) 650 mg PO Q6H PRN PRN Reason: Pain, Mild 1-3,fever,headache Last Admin: 09/08/24 05:39 Dose: 650 mg Calcium Carbonate (Calcium Carbonate 750 Mg Tab.Chew) 750 mg PO Q4H PRN PRN Reason: Heartburn Carvedilol (Carvedilol 6.25 Mg Tablet) 6.25 mg PO BID [facility]; Protocol Last Admin: 09/08/24 08:12 Dose: 6.25 mg Sodium Bicarbonate 50 meq/ (Dextrose) 1,000 mls @ 150 mls/hr IV .Q6H40M [facility] Last Admin: 09/08/24 04:28 Dose: 150 mls/hr Magnesium Hydroxide (Milk Of Magnesia 30 Ml Oral.Susp) 30 ml PO DAILY PRN PRN Reason: Constipation Melatonin (Melatonin 3 Mg Tablet) 6 mg PO BEDTIME PRN PRN Reason: Insomnia Ondansetron HCl (Ondansetron Hcl 4 Mg/2 Ml Vial) 4 mg IVPUSH Q8H PRN PRN Reason: Nausea and Vomiting Last Admin: 09/08/24 05:39 Dose: 4 mg Pantoprazole Sodium (Pantoprazole Sodium 40 Mg/10 Ml Vial) 40 mg IVPUSH BID@0630,1630 [facility] Last Admin: 09/08/24 05:40 Dose: 40 mg Sevelamer Carbonate (Sevelamer Carbonate Tablet 800 Mg Tablet) 800 mg PO TID [facility] Last Admin: 09/08/24 08:12 Dose: 800 mg Sodium Bicarbonate (Sodium Bicarbonate 650 Mg Tablet) 1,300 mg PO TID [facility] Last Admin: 09/08/24 08:12 Dose: 1,300 mg Sodium Chloride (0.9 % Sodium Chloride Flush 3 Ml Syringe) 3 ml IVFLUSH QSHIFT [facility] Last Admin: 09/08/24 08:12 Dose: 3 ml Physical Exam Vital Signs: Last Vital Signs Temp 97.1 F 09/08/24 07:27 Pulse 94 09/08/24 07:27 Resp 16 09/08/24 07:27 BP 137/75 09/08/24 07:27 Pulse Ox 97 09/08/24 07:27 O2 Del Method Room Air 09/08/24 07:27 BMI result Body Mass Index 29.7 Awake. Comfortable. Neck is supple. Mucosa moist. Lungs bilateral scattered rhonchi. Heart S1-S2 heard no gallop. Abdomen soft. Extremities no edema. No involuntary movements. No myoclonus. Results Lab Results 09/07/24 17:11 09/07/24 03:43 Lab results: Chemistry 09/06/24 09/07/24 20:12 03:43 Sodium 144 146 H Potassium 4.6 4.2 Carbon Dioxide 10 L* D 11 L BUN 101 H 91 H Creatinine 7.27 H* 7.04 H* Calcium 7.8 L 7.4 L Hematology 09/06/24 09/07/24 09/07/24 20:12 03:43 17:11 WBC 6.9 5.9 7.0 Hgb 6.2 L* 6.7 L* 11.4 L D Plt Count 196 175 123 L D Assessment and Plan (1) CKD (chronic kidney disease) stage 5, GFR less than 15 ml/min: Status: Acute (2) GI bleed: Status: Acute (3) Metabolic acidosis: Status: Acute Plan CKd 5 approaching ESRD No overt s/s of uremia Needs to start to dialysis but she has not agreed yet Severe anemia due to GI bleed adn underlying EPO deficiency Recent Iron studies were OK Add Epogen GI bleed Await GI work up Add 1 dose DDAVP Severe metabolic acidosis D5W with 1 amp NaHCO3 From a renal stand point, no absolute contraindication for colonoscopy Procedures Date of Service Date of Service: 09/08/24
--- NOTE | 2024-09-08 09:19 | P.PNGI_ITS ---
Subjective Subjective Date of Service: 09/08/24 Interval History: Being seen in follow up for acute on chronic anemia in the setting of lower GI bleeding and worsening renal failure. Describes having acute onset of vomiting and diarrhea 1 day prior to admission. BMs were brown with blood around them. Emesis clear. Baseline H/H not robust to begin with, Hb is between 7-8. P/w Hb of 6.5 and underwent 4u of blood transfusion with more than appropriate increase in the H/H. Seen at bedside, moved to [facility] due to Afib with RVR this afternoon. On cardizem drip. No chest pain, SOB reported. Critical Care Time (minutes): 0 Physical Exam 2 Vital Signs: Vital Signs: Last Vital Signs Temp 97.1 F 09/08/24 07:27 Pulse 94 09/08/24 07:27 Resp 16 09/08/24 07:27 BP 137/75 09/08/24 07:27 Pulse Ox 97 09/08/24 07:27 O2 Del Method Room Air 09/08/24 07:27 BMI result Body Mass Index 29.7 Ill appearing nonicteric abd soft, nontender pitting edema b/l Objective Data Labs 09/07/24 17:11 09/07/24 03:43 Labs: Laboratory Results - last 24 hr 09/06/24 09/06/24 09/06/24 21:59 21:59 21:59 WBC RBC Hgb Hct MCV MCH MCHC RDW Plt Count MPV Immature Gran % (Auto) Neut % (Auto) Lymph % (Auto) [place] % (Auto) Eos % (Auto) Baso % (Auto) Lymph # (Auto) [place] # (Auto) Eos # (Auto) Baso # (Auto) Abs Immat Gran (auto) Absolute Neuts (auto) Absolute Nucleated RBC Nucleated RBC % (auto) Blood Type A Positive Antibody Screen NEGATIVE Antigen Identification E Antigen - NEGATIVE K Antigen - NEGATIVE c Antigen - NEGATIVE Crossmatch (AHG) See Detail 09/07/24 17:11 WBC 7.0 RBC 3.76 L D Hgb 11.4 L D Hct 33.6 L D MCV 89.4 D MCH 30.3 MCHC 33.9 RDW 15.4 Plt Count 123 L D MPV 11.2 Immature Gran % (Auto) 0.4 Neut % (Auto) 64.7 Lymph % (Auto) 24.0 [place] % (Auto) 8.3 Eos % (Auto) 1.9 Baso % (Auto) 0.7 Lymph # (Auto) 1.7 [place] # (Auto) 0.6 Eos # (Auto) 0.1 Baso # (Auto) 0.1 Abs Immat Gran (auto) 0.03 Absolute Neuts (auto) 4.5 Absolute Nucleated RBC 0.000 Nucleated RBC % (auto) 0.0 Blood Type Antibody Screen Antigen Identification Crossmatch (AHG) Procedures Date of Service Date of Service: 09/08/24 Progress Note: A&P Assessment and plan (1) GI bleed: Status: Acute (2) Anemia: Status: Acute (3) Metabolic acidosis: Status: Acute (4) Acute diarrhea: Status: Acute (5) CKD (chronic kidney disease) stage 5, GFR less than 15 ml/min: Status: Acute (6) Atrial fibrillation with rapid ventricular response: Status: Acute (7) Bleeding hemorrhoids: Status: Acute Plan As above, baseline Hb 7-8 and dropped to 6.4 on admission. s/p 4u PRBC. Ddx include infectious colitis vs ischemia vs hemorrhoids vs large polyp/mass. Cleared from renal standpoint to undergo bowel prep and colo but now has rapid afib. Plan: - Tentatively booked for colo for 09/11 - Will re-assess tmrw to ensure stable to proceed - Cont clear liquids for now Time Spent With Patient Time: Total time managing care of this patient today ____ minutes. Quality Stroke Does the patient have a stroke diagnosis?: No VTE Prior VTE?: No VTE Risk Level:: Medical - moderate - high VTE Device Contraindication: N/A - Device Ordered VTE Drug Contraindication: Treatment Not Indicated
[2024-09-08] MEDS: Desmopressin Acetate 20 MCG in 0.9 % Sodium Chloride 50 ML 100 MCG IV (10:31)
--- NOTE | 2024-09-08 12:24 | P.CDIM_ITS ---
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 Please review below and update the documentation accordingly. Clinical Indicators: Progress note dated 09/08 - Acute on chronic anemia H&H 6.2/21.5, reported intractable hematochezia, stool positive for occult blood. Possibly secondary to LGIB s/p 4 units PRBC, HH now stable. BP 137/46 L Based on the above, could you clarify which of the following is the most likely type of anemia you ar e evaluating, treating, and/or monitoring? Acute blood loss anemia Acute blood loss anemia with baseline chronic anemia (specify type) Other (explain) Clinically unable to determine (explain) Thank you, Victorina Parsons, CCS, CDIS Use of terms such as suspected, likely, concern for, or probable (associated with a specific diagnosi s that is being evaluated, monitored, or treated as if it exists) are acceptable and can be coded in the inpatient se tting, when documented at the time of discharge. Please use your independent medical judgment in providing your response. THIS QUERY IS PART OF THE PERMANENT MEDICAL RECORD
--- NOTE | 2024-09-08 13:17 | PC.NURSE ---
1238- This Rn alerted by VIDEO TAPE TRANSFERRER Kae of pt HR 160's. Upon checking pt, pt dry heaving. This RN notified by VIDEO TAPE TRANSFERRER Kae that pt in rapid afib 190's. Hanna Post notified. EKG obtained. Pt states her heart feels hot. 98% on room air. BP 142/82. Pt to be transferred to [facility]. Report given to Stacy
[2024-09-08] MEDS: dilTIAZem HCL 50 MG/10 ML VIAL 15 MG IVPUSH ×2 (13:42→14:11)
[2024-09-08] MEDS: dilTIAZem HCL 125 MG in 0.9 % Sodium Chloride 100 ML 10 MG IVCONT (14:19)
--- NOTE | 2024-09-08 16:49 | PC.NURSE ---
pt arrived to unit, on moniter pt was in a.fib with RVR with HR 180s- low 200s, reporting CP, dizziness, nausea . IV placed, medicated per NOV. placed on dilt gtt and titrated per NOV. pt converted to NSR at 1453, provider notified. dilt gtt paused at this time. pt reports no symptoms at this time. daughter at bedside. pt compliant with lab draw.
[2024-09-08 17:55] LABS: Troponin-I High Sensitivity 56.3 ng/L (<3.5-17.0)
[2024-09-08 17:57] LABS: Anion Gap 14 (12-20); Blood Urea Nitrogen 64 mg/dL (9-16); Carbon Dioxide 16 mmol/L (22-29); Chloride 114 mmol/L (96-108); Creatinine Clr Calc Pharmacy 10.1; Estimated Glomerular Filt Rate 7; Glucose Random 110 mg/dL (60-115); Magnesium 1.3 mg/dL (1.6-2.6); Potassium 3.6 mmol/L (3.3-5.1); Sodium 140 mmol/L (135-145)
[2024-09-08 18:00] LABS: Thyroid Stimulating Hormone 1.61 uIU/mL (0.32-4.0)
[2024-09-08 19:26] LABS: Hematocrit 30.2 % (37.0-47.0); Hemoglobin 10.4 g/dl (12.0-16.0); Mean Corpuscular HGB Conc 34.4 g/dl (31.0-35.0); Mean Corpuscular Hemoglobin 30.3 pg (27.0-33.0); Platelet Count 134 X10*3/uL (160-400); Red Blood Count 3.43 X10*6/uL (4.20-5.50); Red Cell Distribution Width 15.7 % (11.0-16.0); White Blood Count 8.4 X10*3/uL (4.8-10.8)
[2024-09-08 20:46] LABS: Appearance Urine Clear; Color Urine Yellow; Glucose Urine UA 250 mg/dL (Negative); Leukocyte Esterase Urine Trace (Negative); Nitrite Urine Negative (Negative); PH 7.5 (5.0-9.0); Specific Gravity - Urine 1.015 (1.005-1.025); UMIC TRIGGER UACC YES; Urine Blood Large (3+) (Negative); Urine Ketones Negative (Negative); Urine Protein 300 (3+) mg/dL (Neg-Trace)
[2024-09-08 20:48] LABS: Bacteria Urine Trace (None Seen); Hyaline Casts Urine 0-2 /LPF (0-2); WBC Urine 0-5 /HPF (0-5)
[2024-09-08] MEDS: Magnesium Sulfate/H2O 2 GM/50 ML PIGGYBACK IV (21:28)
[2024-09-08] MEDS: Magnesium Oxide 400 MG TABLET PO (23:13)
[2024-09-09] VITALS (7 sets, daily range): BP systolic 137–174; BP diastolic 72–86; PULSE 65–79; RESP 16–18; TEMP 36.1–36.7; O2SAT 94–98
--- NOTE | 2024-09-09 | ECG_ITS ---
Test Reason : elevated troponin Blood Pressure : */* mmHG Vent. Rate : 72 BPM Atrial Rate : 72 BPM P-R Int : 134 ms QRS Dur : 92 ms QT Int : 474 ms P-R-T Axes : 46 40 90 degrees QTcB Int : 519 ms Normal sinus rhythm Nonspecific ST and T wave abnormality Prolonged QT Abnormal ECG When compared with ECG of 08-SEP-2024 12:48, Rythm change Referred By: Hanna Post Electronically Signed By: HEAVEN ALVAREZ
[2024-09-09] MEDS: Pantoprazole Sodium 40 MG/10 ML VIAL IVPUSH ×2 (06:03→16:10)
--- NOTE | 2024-09-09 07:00 | CA_ITS ---
Transthoracic Echocardiogram Patient (Last, First, Middle): Anh Grace, Gender: Female Date of : 1965 Age: 59 Procedure Date: 09/09/2024 Procedure Type: Transthoracic Echocardiogram Location: [facility] [place] Height: 162.56 cm Weight: 78.47 kg BSA: 1.84 m2 Heart Rate: bpm BP: 160 / 78 mmHg Costumer: Referring MD: Hanna Post NP Symptoms: elevated troponin Study Quality: Adequate ECG Rhythm: Sinus Conclusions: - The left ventricular systolic function is mildly decreased. The calculated ejection fraction is 50% by biplane method. - The basal inferior segment is hypokinetic. - No obvious valvular pathology seen on this study. Findings Left Ventricle Normal left ventricular cavity size. There is moderately increased left ventricular wall thickness. The left ventricular systolic function is mildly decreased. The calculated ejection fraction is 50% by biplane method. Diastolic function is normal for age. Wall Motion Rest Echo Findings The basal inferior segment is hypokinetic. Right Ventricle Normal right ventricular cavity size and systolic function. Atria The left atrium is mildly dilated. The right atrium is normal in size. Aortic Valve There is a normal trileaflet aortic valve. There is no aortic valve stenosis. There is no aortic valve regurgitation. Mitral Valve The mitral valve appears normal. There is no mitral valve regurgitation. There is no mitral valve stenosis. Pulmonic Valve The pulmonic valve is likely normal. Tricuspid Valve There is trace tricuspid valve regurgitation. There is no evidence of pulmonary hypertension. Great Vessels The asc aorta is normal in size. Venous The inferior vena cava is normal in size and collapses greater than 50% with inspiration. Pericardium/Pleural There is a small loculated pericardial effusion overlying the left ventricle. Prior Study Comparison Changes noted compared to prior study dated: 11/12/2023. LVEF slightly higher than previously reported. Recommendations, Care & Conclusions No obvious valvular pathology seen on this study. Measurements 2D Linear Measurements IVSd: 1.30 0.6-0.9/0.6-1.0 cm LVIDd: 5.47 3.9-5.3/4.2-5.9 cm LVIDd Index: 2.97 2.4-3.2/2.2-3.1 cm/m2 LVIDs: 4.07 2.0-3.6 cm LVPWd: 1.35 0.7-1.1 cm Ao Root: 3.00 2.1-3.5 cm LA Diam: 3.90 2.7-3.8/3.0-4.0 cm LAIDs Index: 2.12 1.5-2.3 cm/m2 LV Mass: 386.59 67-162/88-224 g LV Mass Index: 210.10 43-95/49-115 g/m2 LVOT Diam: 2.00 3.0+(-)1.3 cm 2D Systolic Function EF 4C: 51.90 >55% EF 2C: 51.70 >55% EF BiP: 49.50 >55% Mitral Valve MV Pk E: 0.55 MV PK A: 0.86 MV Decel Time: 176.00 E/A: 0.60 E'Lateral: 5.11 E'Medial: 5.00 E/E' Med: 11.00 E/E' Lat: 10.70 PHT: 51.00 MVA PHT: 4.31 Decel Randall: 3.12 Aortic Valve AoV Pk Bang: 1.56 AoV Pk Grad: 10.00 LVOT LVOT Pk Bang: 1.03 LVOT Mn Bang: 0.67 LVOT VTI: 0.22 LVOT Pk Grad: 4.00 LVOT Mn Grad: 2.00 LVOT Diam: 2.00 LVOT Area: 3.14 Diastolic Function MV Pk E: 0.55 MV Pk A: 0.86 E/A: 0.60 E'Medial: 5.00 E/E' Med: 11.00 E' Laterial: 5.11 E/E' Lat: 10.70 Right Ventricle TAPSE (mm): 24.80 Tricuspid Valve TR Pk Bang: 1.91 TR Pk Grad: 15.00 Great Vessels Aorta Ao Root-2D: 3.00 2.0-3.7 cm Ao Asc: 3.50 2.1-3.4 cm Pulmonary Valve PV Pk Bang: 1.11 Peak PV Grad: 5.00 Updated in Other Vendor System with Status of Final Renard Crespo MD electronically signed on 09/09/2024 5:18:33 PM with status of Final
[2024-09-09 07:29] LABS: Hematocrit 28.4 % (37.0-47.0); Hemoglobin 9.6 g/dl (12.0-16.0); Mean Corpuscular HGB Conc 33.8 g/dl (31.0-35.0); Mean Corpuscular Hemoglobin 30.3 pg (27.0-33.0); Mean Corpuscular Volume 89.6 fL (80.0-98.0); Mean Platelet Volume 10.5 fL (9.4-12.3); Platelet Count 136 X10*3/uL (160-400); Red Blood Count 3.17 X10*6/uL (4.20-5.50); Red Cell Distribution Width 15.8 % (11.0-16.0)
[2024-09-09 07:48] LABS: Magnesium 1.6 mg/dL (1.6-2.6)
[2024-09-09 07:49] LABS: Anion Gap 13 (12-20); Blood Urea Nitrogen 66 mg/dL (9-16); Carbon Dioxide 21 mmol/L (22-29); Chloride 113 mmol/L (96-108); Creatinine Clr Calc Pharmacy 9.2; Estimated Glomerular Filt Rate 6; Glucose Random 94 mg/dL (60-115); Potassium 3.6 mmol/L (3.3-5.1); Sodium 143 mmol/L (135-145)
[2024-09-09] MEDS: carvediloL 6.25 MG TABLET PO (08:32)
[2024-09-09] MEDS: Sevelamer Carbonate Tablet 800 MG TABLET PO (08:33)
[2024-09-09] MEDS: Magnesium Oxide 400 MG TABLET PO (08:33)
[2024-09-09] MEDS: 0.9 % Sodium Chloride Flush 3 ML SYRINGE IVFLUSH ×2 (08:33→16:10)
[2024-09-09] MEDS: Sodium Bicarbonate 650 MG TABLET 1300 MG PO ×2 (08:33→16:10)
[2024-09-09] MEDS: Magnesium Sulfate/H2O 2 GM/50 ML PIGGYBACK IV (08:53)
--- NOTE | 2024-09-09 10:11 | P.CONCA_ITS ---
History of Present Illness History of Present Illness Date of Service: 09/09/24 Chief complaint: Gi bleed Narrative: This is a cardiology consultation regarding atrial fibrillation as well as elevated troponins. Patient has many comorbidities including stage 5 CKD but not on hemodialysis, hypertension, cardiomyopathy and history of noncompliance. Mainly admitted for anemia related to bright red blood per rectum. In this context, she developed atrial fibrillation with rapid rate yesterday and was moved to telemetry. Prior to that, she apparently had some vomiting. Subsequently, she had the arrhythmia and had some chest pain just during the time of the arrhythmia but then resolved back to her normal self. She was put on a Cardizem drip and then she converted back to normal sinus rhythm. Remains in sinus and currently, she states she feels okay. Last seen in Cardiology Clinic by nurse practitioner in 2022. At that time, documented to have cardiomyopathy. LVEF has been apparently as low as 30-35% in 2019. In 2022, 40-45%. Stress test was ordered that time but not completed. Unknown coronary status. Review of Systems 2 Review of Systems: Yes all other systems are reviewed and are negative Constitutional: Constitutional: Reports as per HPI and Reports no additional constitutional complaints Eyes: Eyes: Reports as per HPI and Denies no additional eye complaints ENT: Denies system reviewed and no additional complaints, except as documented and Reports as per HPI Cardiovascular: Cardiovascular: Reports as per HPI, Reports no additional cardiovascular complaints, Denies acrocyanosis, Denies cool extremities, Reports chest pain, Denies leg edema, Denies lightheadedness, Reports palpitations and Denies dyspnea Respiratory: Respiratory: Reports as per HPI, Denies no additional respiratory complaints and Denies dyspnea Gastrointestinal: Gastrointestinal: Reports as per HPI and Denies no additional gastrointestinal complaints Genitourinary: Genitourinary: Reports as per HPI Musculoskeletal: Musculoskeletal: Reports no additional musculoskeletal complaints and Reports as per HPI Integumentary/Breasts: Skin/Breast: Reports system reviewed and no additional complaints, except as docu Neurologic: Reports system reviewed and no additional complaints, except as documented and Reports as per HPI Psychiatric: Psychiatric: Reports no additional psychiatric complaints and Reports as per HPI Endocrine: Endocrine: Reports no additional endocrine complaints, Reports as per HPI and Reports palpitations Hematologic/Lymphatic: Hematologic/Lymphatic: Reports no additional hematologic/lymphatic complaints and Reports as per HPI Allergic/Immunologic: Allergic/Immunologic: Reports no additional allergic/immunologic complaints and Reports as per [facility] Past Medical History Medical History Anemia in chronic kidney disease (CKD) CKD (chronic kidney disease) stage 5, GFR less than 15 ml/min Anemia CKD (chronic kidney disease) Chronic systolic (congestive) heart failure Cardiomyopathy Essential hypertension Normocytic anemia Family History Family History Father Throat cancer Mother Hypertension Daughter In good health Daughter In good health Sister In good health Family/Other Breast cancer Surgical History Surgical History Hx of colonoscopy History of surgery Status post dilation and curettage History of abdominal surgery History of extraction of renal calculus History of tubal ligation Social History Social History Household Members: None Housing: Apartment Do you presently have visiting nurse or other home services: Yes ([employer]) Alcohol intake: never Patient Tobacco Use Status: Never used Tobacco Tobacco use type: Cigarette Years Smoked: 30 +/- e-Cigarette/Vaping Use: Never Used Second Hand Smoke Exposure: No service: No Current occupational status: unemployed Cognitive needs: No Hearing needs: No Vision needs: No Meds Allergies Allergy/AdvReac Type Severity Reaction Status Date / Time Penicillins Allergy Intermediate RASH Verified 09/06/24 19:08 Active Medications: Current Medications Acetaminophen (Acetaminophen 325 Mg Tablet) 650 mg PO Q6H PRN PRN Reason: Pain, Mild 1-3,fever,headache Last Admin: 09/08/24 21:29 Dose: 650 mg Calcium Carbonate (Calcium Carbonate 750 Mg Tab.Chew) 750 mg PO Q4H PRN PRN Reason: Heartburn Carvedilol (Carvedilol 6.25 Mg Tablet) 6.25 mg PO BID [facility]; Protocol Last Admin: 09/09/24 08:32 Dose: 6.25 mg Diltiazem HCl 125 mg/ Sodium (Chloride) 125 mls @ 0 mls/hr IVCONT .Q0M [facility]; Protocol Last Titration: 09/08/24 15:44 Dose: 0 mg/hr, 0 mls/hr Magnesium Hydroxide (Milk Of Magnesia 30 Ml Oral.Susp) 30 ml PO DAILY PRN PRN Reason: Constipation Magnesium Oxide (Magnesium Oxide 400 Mg Tablet) 400 mg PO DAILY [facility] Last Admin: 09/09/24 08:33 Dose: 400 mg Melatonin (Melatonin 3 Mg Tablet) 6 mg PO BEDTIME PRN PRN Reason: Insomnia Ondansetron HCl (Ondansetron Hcl 4 Mg/2 Ml Vial) 4 mg IVPUSH Q8H PRN PRN Reason: Nausea and Vomiting Last Admin: 09/08/24 13:58 Dose: 4 mg Pantoprazole Sodium (Pantoprazole Sodium 40 Mg/10 Ml Vial) 40 mg IVPUSH BID@0630,1630 [facility] Last Admin: 09/09/24 06:03 Dose: 40 mg Sevelamer Carbonate (Sevelamer Carbonate Tablet 800 Mg Tablet) 800 mg PO TID [facility] Last Admin: 09/09/24 08:33 Dose: 800 mg Sodium Bicarbonate (Sodium Bicarbonate 650 Mg Tablet) 1,300 mg PO TID [facility] Last Admin: 09/09/24 08:33 Dose: 1,300 mg Sodium Chloride (0.9 % Sodium Chloride Flush 3 Ml Syringe) 3 ml IVFLUSH QSHIFT [facility] Last Admin: 09/09/24 08:33 Dose: 3 ml Physical Exam 2 Vital Signs: Vital Signs: Last Vital Signs Temp 98.1 F 09/09/24 07:20 Pulse 70 09/09/24 07:20 Resp 18 09/09/24 07:20 BP 160/78 H 09/09/24 07:20 Pulse Ox 97 09/09/24 07:20 O2 Del Method Room Air 09/09/24 07:20 BMI result Body Mass Index 29.7 Const: General: comfortable and no acute distress O rientation/consciousness: patient oriented x3 HEENT: Other: Unremarkable Head: Yes normal to inspection Neck: Neck: Yes normal visual inspection Chest: Chest palpation & inspection: normal inspection of the chest Resp: Auscultation: clear to auscultation bilaterally Cardio: Palpation: normal PMI Heart sounds: S1 normal heart sound present, S2 normal heart sound present, no gallops, no murmurs and no rubs GI: Palpation (GI): Soft to palpation Back/Spine/Pelvis: Other: unremarkable Skin: General skin exam: no rashes or lesions noted Neuro: General: patient oriented x3 Extrem: General: Yes normal to inspection Psych: Mental Status: mental status grossly normal Objective Labs and Meds 09/09/24 07:18 09/09/24 07:18 Lab results: Laboratory Results - last 24 hr 09/08/24 09/08/24 09/08/24 16:52 19:08 20:38 WBC 8.4 RBC 3.43 L Hgb 10.4 L Hct 30.2 L MCV 88.0 MCH 30.3 MCHC 34.4 RDW 15.7 Plt Count 134 L MPV 11.0 Absolute Nucleated RBC 0.000 Nucleated RBC % (auto) 0.0 Sodium 140 Potassium 3.6 Chloride 114 H Carbon Dioxide 16 L Anion Gap 14 BUN 64 H Creatinine 6.05 H* Estim Creat Clear Calc 10.1 Estimated GFR 7 Random Glucose 110 Calcium 7.0 L Magnesium 1.3 L* Troponin I High Sens 56.3 H* D TSH 1.61 Urine Color Yellow Urine Appearance Clear Urine pH 7.5 Ur Specific [place] 1.015 Urine Protein 300 (3+) H Urine Glucose (UA) 250 H Urine Ketones Negative Urine Blood Large (3+) H Urine Nitrite Negative Ur Leukocyte Esterase Trace H Urine RBC 11-20 H Urine WBC 0-5 Ur Squamous Epith Cells 3-5 Urine Bacteria Trace Hyaline Casts 0-2 09/09/24 09/09/24 07:17 07:18 WBC 6.0 RBC 3.17 L Hgb 9.6 L Hct 28.4 L MCV 89.6 MCH 30.3 MCHC 33.8 RDW 15.8 Plt Count 136 L MPV 10.5 Absolute Nucleated RBC 0.000 Nucleated RBC % (auto) 0.0 Sodium 143 Potassium 3.6 Chloride 113 H Carbon Dioxide 21 L Anion Gap 13 BUN 66 H Creatinine 6.68 H* Estim Creat Clear Calc 9.2 Estimated GFR 6 Random Glucose 94 Calcium 7.0 L Magnesium 1.6 Troponin I High Sens 455.0 H* D TSH Urine Color Urine Appearance Urine pH Ur Specific [place] Urine Protein Urine Glucose (UA) Urine Ketones Urine Blood Urine Nitrite Ur Leukocyte Esterase Urine RBC Urine WBC Ur Squamous Epith Cells Urine Bacteria Hyaline Casts Assessment and Plan (1) Atrial fibrillation with rapid ventricular response: Status: Acute (2) NSTEMI (non-ST elevated myocardial infarction): Status: Acute Plan Troponin levels are 56 and 455. Profoundly anemic upon arrival at 6.2. Currently at 9.6. By EKG and telemetry, atrial fibrillation with rapid rate but currently in normal sinus rhythm. Last LVEF on echocardiogram is 40-45%. Overall, GI bleed, anemia, atrial fibrillation with rapid rate, demand related NSTEMI, likely underlying coronary disease. Metoprolol have better effects on atrial fibrillation then carvedilol and hence for medications, stop the carvedilol and start metoprolol 50 mg b.i.d.. As she is actively GI bleeding, can not use anticoagulation. When cleared by GI, consider aspirin. She also has advanced renal disease and hence probably needs to start dialysis before any invasive studies. Discussed with Nephrology. Repeat echo. Once stable from arrhythmia standpoint, should be able to proceed with EGD/colonoscopy but intermediate to high cardiac risk. Procedures Date of Service Date of Service: 09/09/24
--- NOTE | 2024-09-09 11:17 | HO.PM.IMPN ---
Subjective Subjective Date of Service: 09/09/24 Review of Systems Follow up ANATOLIY on CKD. GI Bleed no pain or discomfort active bleeding Physical Exam Vital Signs: Vital Signs: Last Vital Signs Temp 97.9 F 09/09/24 10:56 Pulse 71 09/09/24 10:56 Resp 18 09/09/24 10:56 BP 164/74 H 09/09/24 10:56 Pulse Ox 94 09/09/24 10:56 O2 Del Method Room Air 09/09/24 10:56 BMI result Body Mass Index 29.7 Appearing in no acute distress lung sounds are clear to auscultation heart regular rate rhythm, clear S1, S2 positive bowel sounds, abdomen is soft, nontender neuro patient is alert x3, no focal deficits Objective Data Active Medications Acetaminophen (Acetaminophen 325 Mg Tablet) 650 mg PO Q6H PRN PRN Reason: Pain, Mild 1-3,fever,headache Last Admin: 09/08/24 21:29 Dose: 650 mg Documented By: BRANDY Calcium Carbonate (Calcium Carbonate 750 Mg Tab.Chew) 750 mg PO Q4H PRN PRN Reason: Heartburn Magnesium Hydroxide (Milk Of Magnesia 30 Ml Oral.Susp) 30 ml PO DAILY PRN PRN Reason: Constipation Magnesium Oxide (Magnesium Oxide 400 Mg Tablet) 400 mg PO DAILY [facility] Last Admin: 09/09/24 08:33 Dose: 400 mg Documented By: CHRISTINA Melatonin (Melatonin 3 Mg Tablet) 6 mg PO BEDTIME PRN PRN Reason: Insomnia Metoprolol Tartrate (Metoprolol Tartrate 50 Mg Tablet) 50 mg PO BID [facility]; Protocol Ondansetron HCl (Ondansetron Hcl 4 Mg/2 Ml Vial) 4 mg IVPUSH Q8H PRN PRN Reason: Nausea and Vomiting Last Admin: 09/08/24 13:58 Dose: 4 mg Documented By: CAROLINA Pantoprazole Sodium (Pantoprazole Sodium 40 Mg/10 Ml Vial) 40 mg IVPUSH BID@0630,1630 [facility] Last Admin: 09/09/24 06:03 Dose: 40 mg Documented By: BRANDY Sevelamer Carbonate (Sevelamer Carbonate Tablet 800 Mg Tablet) 800 mg PO TID [facility] Last Admin: 09/09/24 08:33 Dose: 800 mg Documented By: CHRISTINA Sodium Bicarbonate (Sodium Bicarbonate 650 Mg Tablet) 1,300 mg PO TID [facility] Last Admin: 09/09/24 08:33 Dose: 1,300 mg Documented By: CHRISTINA Sodium Chloride (0.9 % Sodium Chloride Flush 3 Ml Syringe) 3 ml IVFLUSH QSHIFT [facility] Last Admin: 09/09/24 08:33 Dose: 3 ml Documented By: CHRISTINA Labs 09/09/24 07:18 09/09/24 07:18 Labs: Laboratory Results - last 24 hr 09/08/24 09/08/24 09/08/24 16:52 19:08 20:38 MCV 88.0 MCH 30.3 MCHC 34.4 RDW 15.7 Plt Count 134 L MPV 11.0 Absolute Nucleated RBC 0.000 Nucleated RBC % (auto) 0.0 Anion Gap 14 Estim Creat Clear Calc 10.1 Estimated GFR 7 Random Glucose 110 Calcium 7.0 L Magnesium 1.3 L* Troponin I High Sens 56.3 H* D TSH 1.61 Urine Color Yellow Urine Appearance Clear Urine pH 7.5 Ur Specific [place] 1.015 Urine Protein 300 (3+) H Urine Glucose (UA) 250 H Urine Ketones Negative Urine Blood Large (3+) H Urine Nitrite Negative Ur Leukocyte Esterase Trace H Urine RBC 11-20 H Urine WBC 0-5 Ur Squamous Epith Cells 3-5 Urine Bacteria Trace Hyaline Casts 0-2 09/09/24 09/09/24 07:17 07:18 MCV 89.6 MCH 30.3 MCHC 33.8 RDW 15.8 Plt Count 136 L MPV 10.5 Absolute Nucleated RBC 0.000 Nucleated RBC % (auto) 0.0 Anion Gap 13 Estim Creat Clear Calc 9.2 Estimated GFR 6 Random Glucose 94 Calcium 7.0 L Magnesium 1.6 Troponin I High Sens 455.0 H* D TSH Urine Color Urine Appearance Urine pH Ur Specific [place] Urine Protein Urine Glucose (UA) Urine Ketones Urine Blood Urine Nitrite Ur Leukocyte Esterase Urine RBC Urine WBC Ur Squamous Epith Cells Urine Bacteria Hyaline Casts Assessment and Plan (1) GI bleed: Status: Acute Plan 59-year-old female with a PMH significant for?CKD stage 5 not on hemodialysis, HTN, HFrEF (LVEF 40-45% on 11/2023), chronic iron deficiency anemia, and hx of noncompliance with medications or follow up appointments who presents to the ED with?intractable diarrhea with bright red blood since yesterday at midnight. Pt admitted to the hospital for treatment and further evaluation of acute on chronic anemia secondary to possible LGIB. Acute atrial fibrillation with rapid ventricular response Started yesterday, received 2 doses of IV Cardizem 15 mg and started on IV Cardizem drip Returned back to normal sinus rhythm within a few hours Discussed case with Cardiology, changed to metoprolol 50 mg b.i.d. Demand NSTEMI Elevated troponin, Initially 56 with repeat of 455 Likely secondary to multiple issues including anemia, atrial fibrillation, GI bleed Started on metoprolol Can not use anticoagulation or aspirin due to GI bleed at this time Repeat echocardiogram Acute on chronic anemia Initially H&H 6.2/21.5, reported intractable hematochezia, stool positive for occult blood secondary to LGIB s/p 4 units PRBC Protonix b.i.d., IVF, antiemetics p.r.n. GI consult> plan for colo , intermediate to high cardiac risk still bleeding actively and H&H has dropped, Plan for NM bleeding scan today CKD 5 Creatinine 6.[address] 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
[2024-09-09] MEDS: Acetaminophen 325 MG TABLET 650 MG PO (12:31)
[2024-09-09] MEDS: PEG 3350/Na Sulf,Bicarb,Cl/KCL 4,000 ML SOLN.RECON 4000 ML PO (17:07)
--- NOTE | 2024-09-09 18:35 | P.PNNP_ITS ---
Subjective Subjective Date of Service: 09/09/24 Interval history: Seen this AM. Son by bedside. All recent data reviewed. For NM bleeding scan today. Cardiology seen. Physical Exam 2 Vital Signs: Vital Signs: Last Vital Signs Temp 96.9 F 09/09/24 16:00 Pulse 67 09/09/24 16:00 Resp 17 09/09/24 16:00 BP 142/76 H 09/09/24 16:00 Pulse Ox 98 09/09/24 16:00 O2 Del Method Room Air 09/09/24 16:00 BMI result Body Mass Index 29.7 Const: General: comfortable and no acute distress O rientation/consciousness: patient oriented x3 HEENT: Head: Yes normocephalic Mouth: Normal oral and palatal mucosa present Eyes: EOM: EOMs intact bilaterally Neck: Neck: Yes supple Resp: Auscultation: clear to auscultation bilaterally Cardio: Jugular venous distension: no JVD Rate: regular rate GI: Palpation (GI): Soft to palpation Auscultation: normal bowel sounds : General: Yes no CVA tenderness Back/Spine/Pelvis: Back: no CVA tenderness Skin: General skin exam: no rashes or lesions noted Neuro: General: patient oriented x3 and moves all extremities Extrem: General: Yes no pedal edema Objective Data Labs 09/09/24 07:18 09/09/24 07:18 Labs: Laboratory Results - last 24 hr 09/08/24 09/08/24 09/09/24 19:08 20:38 07:17 WBC 8.4 RBC 3.43 L Hgb 10.4 L Hct 30.2 L MCV 88.0 MCH 30.3 MCHC 34.4 RDW 15.7 Plt Count 134 L MPV 11.0 Absolute Nucleated RBC 0.000 Nucleated RBC % (auto) 0.0 Sodium Potassium Chloride Carbon Dioxide Anion Gap BUN Creatinine Estim Creat Clear Calc Estimated GFR Random Glucose Calcium Magnesium 1.6 Troponin I High Sens 455.0 H* D Urine Color Yellow Urine Appearance Clear Urine pH 7.5 Ur Specific [place] 1.015 Urine Protein 300 (3+) H Urine Glucose (UA) 250 H Urine Ketones Negative Urine Blood Large (3+) H Urine Nitrite Negative Ur Leukocyte Esterase Trace H Urine RBC 11-20 H Urine WBC 0-5 Ur Squamous Epith Cells 3-5 Urine Bacteria Trace Hyaline Casts 0-2 09/09/24 07:18 WBC 6.0 RBC 3.17 L Hgb 9.6 L Hct 28.4 L MCV 89.6 MCH 30.3 MCHC 33.8 RDW 15.8 Plt Count 136 L MPV 10.5 Absolute Nucleated RBC 0.000 Nucleated RBC % (auto) 0.0 Sodium 143 Potassium 3.6 Chloride 113 H Carbon Dioxide 21 L Anion Gap 13 BUN 66 H Creatinine 6.68 H* Estim Creat Clear Calc 9.2 Estimated GFR 6 Random Glucose 94 Calcium 7.0 L Magnesium Troponin I High Sens Urine Color Urine Appearance Urine pH Ur Specific [place] Urine Protein Urine Glucose (UA) Urine Ketones Urine Blood Urine Nitrite Ur Leukocyte Esterase Urine RBC Urine WBC Ur Squamous Epith Cells Urine Bacteria Hyaline Casts Procedures Date of Service Date of Service: 09/09/24 Assessment & Plan Assessment and plan (1) CKD (chronic kidney disease) stage 5, GFR less than 15 ml/min: Status: Acute (2) Secondary hyperparathyroidism (of renal origin): Status: Acute (3) Anemia in chronic kidney disease (CKD): Status: Acute Plan CKd 5 approaching ESRD No overt s/s of uremia Bicarb better; K stable Needs to start to dialysis soon From a renal stand point, no absolute contraindication for colonoscopy Progress Note: Quality Stroke Does the patient have a stroke diagnosis?: No
[2024-09-09 21:30] LABS: Hematocrit 32.6 % (37.0-47.0); Mean Corpuscular HGB Conc 33.7 g/dl (31.0-35.0); Mean Corpuscular Hemoglobin 30.5 pg (27.0-33.0); Mean Corpuscular Volume 90.3 fL (80.0-98.0); Mean Platelet Volume 10.7 fL (9.4-12.3); Platelet Count 157 X10*3/uL (160-400); Red Blood Count 3.61 X10*6/uL (4.20-5.50); Red Cell Distribution Width 15.6 % (11.0-16.0); White Blood Count 6.3 X10*3/uL (4.8-10.8)
[2024-09-10] VITALS (10 sets, daily range): BP systolic 139–198; BP diastolic 62–94; PULSE 56–85; RESP 14–20; TEMP 36.1–37; O2SAT 96–99
[2024-09-10] MEDS: Metoprolol Tartrate 50 MG TABLET PO ×3 (00:14→21:00)
[2024-09-10] MEDS: Pantoprazole Sodium 40 MG/10 ML VIAL IVPUSH (05:57)
--- NOTE | 2024-09-10 10:13 | P.PNCA_ITS ---
Subjective Subjective Date of Service: 09/10/24 Interval history: Patient states that she feels fine. No new complaints. No cardiac symptoms. Review of Systems Review of Systems Yes all other systems are reviewed and are negative Constitutional: Reports as per HPI and Reports no additional constitutional complaints Eyes: Reports as per HPI and Denies no additional eye complaints Denies system reviewed and no additional complaints, except as documented and Reports as per HPI Cardiovascular: Reports as per HPI, Reports no additional cardiovascular complaints, Denies acrocyanosis, Denies cool extremities, Denies chest pain, Denies leg edema, Denies lightheadedness, Denies palpitations and Denies dyspnea Respiratory: Reports as per HPI, Denies no additional respiratory complaints and Denies dyspnea Gastrointestinal: Reports as per HPI and Denies no additional gastrointestinal complaints Genitourinary: Reports as per HPI Musculoskeletal: Reports no additional musculoskeletal complaints and Reports as per HPI Skin/Breast: Reports system reviewed and no additional complaints, except as docu Reports system reviewed and no additional complaints, except as documented and Reports as per HPI Psychiatric: Reports no additional psychiatric complaints and Reports as per HPI Endocrine: Reports no additional endocrine complaints, Reports as per HPI and Denies palpitations Hematologic/Lymphatic: Reports no additional hematologic/lymphatic complaints and Reports as per HPI Allergic/Immunologic: Reports no additional allergic/immunologic complaints and Reports as per HPI Physical Exam Vital Signs: Last Vital Signs Temp 98.6 F 09/10/24 07:47 Pulse 61 09/10/24 07:47 Resp 16 09/10/24 07:47 BP 190/88 H 09/10/24 07:47 Pulse Ox 99 09/10/24 07:47 O2 Del Method Room Air 09/10/24 07:47 BMI result Body Mass Index 29.7 Const General: comfortable and no acute distress Orientation/consciousness: patient oriented x3 HEENT Other: Unremarkable Head: Yes normal to inspection Neck Neck: Yes normal visual inspection Chest Chest palpation & inspection: normal inspection of the chest Resp Auscultation: clear to auscultation bilaterally Cardio Palpation: normal PMI Heart sounds: S1 normal heart sound present, S2 normal heart sound present, no gallops, no murmurs and no rubs GI Palpation (GI): Soft to palpation Back/Spine/Pelvis Other: unremarkable Skin General skin exam: no rashes or lesions noted Neuro General: patient oriented x3 Extrem General: Yes normal to inspection Psych Mental Status: mental status grossly normal Objective Labs and Meds 09/09/24 20:55 09/09/24 07:18 Lab results: Laboratory Results - last 24 hr 09/09/24 20:55 WBC 6.3 RBC 3.61 L Hgb 11.0 L Hct 32.6 L MCV 90.3 MCH 30.5 MCHC 33.7 RDW 15.6 Plt Count 157 L MPV 10.7 Absolute Nucleated RBC 0.000 Nucleated RBC % (auto) 0.0 Imaging Radiologist's impression: Impressions GI Bleed Scan Nuclear Medicine 09/09/24 13:15 IMPRESSION: No active site of technetium extravasation seen to suspect any site of bleeding. There is diffuse mastectomy seen in the left abdomen presumed to be in the left colon. When and if patient receives endoscopy, the left colon should be inspected first. Electronically signed by: Duke Douglas MD 09/09/2024 04:16 PM [facility] [place] Progress Note: A&P Assessment and plan (1) Atrial fibrillation with rapid ventricular response: Status: Acute (2) NSTEMI (non-ST elevated myocardial infarction): Status: Acute Plan Troponin levels are 56 and 455. Profoundly anemic upon arrival at 6.2. Currently at 9.6. By EKG and telemetry, had atrial fibrillation with rapid rate but currently in normal sinus rhythm. Echocardiogram with LVEF of 50%. Basal inferior hypokinesis. Last LVEF on echocardiogram is 40-45%. Overall, GI bleed, anemia, atrial fibrillation with rapid rate, demand related NSTEMI, likely underlying coronary disease. She is now on metoprolol. Previously on carvedilol. We will not be able to use aspirin or anticoagulation because of active GI bleeding. When cleared by GI, start aspirin. She also has advanced renal disease and hence probably needs to start dialysis before any invasive studies. Discussed with Nephrology yesterday. Her blood pressure is also quite high and will need to be addressed-through Nephrology. May proceed with EGD/colonoscopy. Intermediate to high cardiac risk. Time Spent With Patient Time: Total time managing care of this patient today ____ minutes. Progress Note: Quality Stroke Does the patient have a stroke diagnosis?: No Procedures Date of Service Date of Service: 09/10/24
[2024-09-10 11:37] LABS: Hemoglobin 11.2 g/dl (12.0-16.0); Mean Corpuscular HGB Conc 33.9 g/dl (31.0-35.0); Mean Corpuscular Hemoglobin 30.8 pg (27.0-33.0); Mean Corpuscular Volume 90.7 fL (80.0-98.0); Mean Platelet Volume 10.7 fL (9.4-12.3); Platelet Count 155 X10*3/uL (160-400); Red Blood Count 3.64 X10*6/uL (4.20-5.50); Red Cell Distribution Width 15.2 % (11.0-16.0); White Blood Count 7.3 X10*3/uL (4.8-10.8)
[2024-09-10 11:57] LABS: Anion Gap 18 (12-20); Blood Urea Nitrogen 59 mg/dL (9-16); Calcium 8.1 mg/dL (8.4-10.2); Carbon Dioxide 21 mmol/L (22-29); Chloride 112 mmol/L (96-108); Creatinine Clr Calc Pharmacy 9.1; Estimated Glomerular Filt Rate 6; Glucose Random 88 mg/dL (60-115); Magnesium 2.5 mg/dL (1.6-2.6); Potassium 3.8 mmol/L (3.3-5.1); Sodium 147 mmol/L (135-145)
--- NOTE | 2024-09-10 12:16 | P.PNIM_ITS ---
Subjective Subjective Date of Service: 09/10/24 Review of Systems Follow up ANATOLIY on CKD. GI Bleed no pain or discomfort active bleeding Physical Exam 2 Vital Signs: Vital Signs: Last Vital Signs Temp 98.2 F 09/10/24 12:00 Pulse 61 09/10/24 12:00 Resp 14 09/10/24 12:00 BP 177/94 H 09/10/24 12:00 Pulse Ox 98 09/10/24 12:00 O2 Del Method Room Air 09/10/24 12:00 BMI result Body Mass Index 29.7 Appearing in no acute distress lung sounds are clear to auscultation heart regular rate rhythm, clear S1, S2 positive bowel sounds, abdomen is soft, nontender neuro patient is alert x3, no focal deficits Objective Data Active Medications Acetaminophen (Acetaminophen 325 Mg Tablet) 650 mg PO Q6H PRN PRN Reason: Pain, Mild 1-3,fever,headache Last Admin: 09/09/24 12:31 Dose: 650 mg Documented By: CHRISTINA Calcium Carbonate (Calcium Carbonate 750 Mg Tab.Chew) 750 mg PO Q4H PRN PRN Reason: Heartburn Magnesium Hydroxide (Milk Of Magnesia 30 Ml Oral.Susp) 30 ml PO DAILY PRN PRN Reason: Constipation Magnesium Oxide (Magnesium Oxide 400 Mg Tablet) 400 mg PO DAILY [facility] Last Admin: 09/10/24 09:53 Dose: Not Given Documented By: DUNG Non-Admin Reason: NPO Melatonin (Melatonin 3 Mg Tablet) 6 mg PO BEDTIME PRN PRN Reason: Insomnia Metoprolol Tartrate (Metoprolol Tartrate 50 Mg Tablet) 50 mg PO BID [facility]; Protocol Last Admin: 09/10/24 10:31 Dose: 50 mg Documented By: DUNG Ondansetron HCl (Ondansetron Hcl 4 Mg/2 Ml Vial) 4 mg IVPUSH Q8H PRN PRN Reason: Nausea and Vomiting Last Admin: 09/08/24 13:58 Dose: 4 mg Documented By: CAROLINA Sevelamer Carbonate (Sevelamer Carbonate Tablet 800 Mg Tablet) 800 mg PO TID [facility] Last Admin: 09/10/24 09:53 Dose: Not Given Documented By: DUNG Non-Admin Reason: NPO Sodium Bicarbonate (Sodium Bicarbonate 650 Mg Tablet) 1,300 mg PO TID [facility] Last Admin: 09/10/24 09:53 Dose: Not Given Documented By: DUNG Non-Admin Reason: NPO Sodium Chloride (0.9 % Sodium Chloride Flush 3 Ml Syringe) 3 ml IVFLUSH QSHIFT [facility] Last Admin: 09/10/24 10:42 Dose: Not Given Documented By: DUNG Non-Admin Reason: iv not working Labs 09/10/24 11:27 09/10/24 11:27 Labs: Laboratory Results - last 24 hr 09/09/24 09/10/24 09/10/24 20:55 11:27 11:27 MCV 90.3 Cancelled 90.7 MCH 30.5 Cancelled MCHC 33.7 RDW 15.6 Plt Count 157 L MPV 10.7 Absolute Nucleated RBC 0.000 Nucleated RBC % (auto) 0.0 Anion Gap Estim Creat Clear Calc Estimated GFR Random Glucose Calcium Magnesium Blood Type Antibody Screen 09/10/24 09/10/24 09/10/24 11:27 11:27 11:27 MCV MCH 30.8 MCHC Cancelled 33.9 RDW Cancelled 15.2 Plt Count Cancelled MPV Absolute Nucleated RBC Nucleated RBC % (auto) Anion Gap Estim Creat Clear Calc Estimated GFR Random Glucose Calcium Magnesium Blood Type Antibody Screen 09/10/24 09/10/24 09/10/24 11:27 11:27 11:27 MCV MCH MCHC RDW Plt Count 155 L MPV Cancelled 10.7 Absolute Nucleated RBC Cancelled 0.000 Nucleated RBC % (auto) Cancelled Anion Gap Estim Creat Clear Calc Estimated GFR Random Glucose Calcium Magnesium Blood Type Antibody Screen 09/10/24 09/10/24 09/10/24 11:27 11:27 11:27 MCV MCH MCHC RDW Plt Count MPV Absolute Nucleated RBC Nucleated RBC % (auto) 0.0 Anion Gap 18 Cancelled Estim Creat Clear Calc 9.1 Cancelled Estimated GFR 6 Random Glucose Calcium Magnesium Blood Type Antibody Screen 09/10/24 09/10/24 09/10/24 11:27 11:27 11:27 MCV MCH MCHC RDW Plt Count MPV Absolute Nucleated RBC Nucleated RBC % (auto) Anion Gap Estim Creat Clear Calc Estimated GFR Cancelled Random Glucose 88 Cancelled Calcium 8.1 L D Cancelled Magnesium 2.5 Blood Type Antibody Screen 09/10/24 11:27 MCV MCH MCHC RDW Plt Count MPV Absolute Nucleated RBC Nucleated RBC % (auto) Anion Gap Estim Creat Clear Calc Estimated GFR Random Glucose Calcium Magnesium Cancelled Blood Type A Positive Antibody Screen NEGATIVE Assessment and Plan (1) GI bleed: Status: Acute Plan 59-year-old female with a PMH significant for?CKD stage 5 not on hemodialysis, HTN, HFrEF (LVEF 40-45% on 11/2023), chronic iron deficiency anemia, and hx of noncompliance with medications or follow up appointments who presents to the ED with?intractable diarrhea with bright red blood since yesterday at midnight. Pt admitted to the hospital for treatment and further evaluation of acute on chronic anemia secondary to possible LGIB. Acute atrial fibrillation with rapid ventricular response. Resolved Started 09/08/24, received 2 doses of IV Cardizem 15 mg and started on IV Cardizem drip Returned back to normal sinus rhythm within a few hours Discussed case with Cardiology, changed to metoprolol 50 mg b.i.d. Demand NSTEMI Elevated troponin, Initially 56 with repeat of 455 no chest pain Likely secondary to multiple issues including anemia, atrial fibrillation, GI bleed Started on metoprolol Can not use anticoagulation or aspirin due to GI bleed at this time Repeat echocardiogram showing EF of 50% with basal inferior segment hypokinesis, no valvular pathology Acute on chronic anemia Initially H&H 6.2/21.5, reported intractable hematochezia, stool positive for occult blood secondary to LGIB s/p 4 units PRBC Protonix b.i.d., IVF, antiemetics p.r.n. had bleeding 09/09/24 with drop in H&H, NM bleeding scan negative GI consult> plan for colo today, intermediate to high cardiac risk CKD 5 Creatinine 6.[address] 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
--- NOTE | 2024-09-10 12:35 | HO.ANESPROP2 ---
Documented by User: Soraida Wan MD 09/10/24 14:24 [facility] Past Medical History Medical History Anemia in chronic kidney disease (CKD) CKD (chronic kidney disease) stage 5, GFR less than 15 ml/min Anemia CKD (chronic kidney disease) Chronic systolic (congestive) heart failure Cardiomyopathy Essential hypertension Normocytic anemia Family History Family History Father Throat cancer Mother Hypertension Daughter In good health Daughter In good health Sister In good health Family/Other Breast cancer Surgical History Surgical History Hx of colonoscopy History of surgery Status post dilation and curettage History of abdominal surgery History of extraction of renal calculus History of tubal ligation Social History Social History Household Members: None Housing: Apartment Are you a primary care professional to a significant other at home: No Do you presently have visiting nurse or other home services: No Alcohol intake: never Patient Tobacco Use Status: Never used Tobacco Tobacco use type: Cigarette Years Smoked: 30 +/- e-Cigarette/Vaping Use: Never Used Second Hand Smoke Exposure: No service: No Current occupational status: unemployed Cognitive needs: No Hearing needs: No Vision needs: No Meds Allergies Allergy/AdvReac Type Severity Reaction Status Date / Time Penicillins Allergy Intermediate RASH Verified 09/06/24 19:08 Exam Airway Mallampati Class: II TM Dist: >3cm Neck ROM: Full Partial: Upper Heart: rrr Lungs: cta Assessment and Plan Assessment Anesthesia Assessment: Anesthesia Plan Discussed and Chart Reviewed Final Anesthetic Review NPO: Yes ASA Class: III Final Preanesthetic Review: No Changes in Pt Med Stat, Meds/Allgs Chart Reviewed and Consent Obtained/Reviewed Patient Risk: Intermediate Procedure Risk: Intermediate Anesthetic Plan Anesthetic Plan: MAC: Disposition: Standard PACU Documented by User: Shabnam Henderson MD [facility] Active Problems Active Problems: All Active Problems NSTEMI (non-ST elevated myocardial infarction) (Acute) Atrial fibrillation with rapid ventricular response (Acute) GI bleed (Acute) Anemia (Acute) Vitamin D deficiency (Acute) Metabolic acidosis (Acute) Physical exam (Acute) Hernia (Acute) Acute diarrhea (Acute) CKD (chronic kidney disease) stage 5, GFR less than 15 ml/min (Acute) Hospital discharge follow-up (Acute) Iron deficiency (Acute) Secondary hyperparathyroidism (of renal origin) (Acute) Anemia in chronic kidney disease (CKD) (Acute) Bleeding hemorrhoids (Acute) Screening for cervical cancer (Acute) Physical exam (Acute) Weight loss (Acute) Dysphagia (Acute) Rash (Acute) Obesity (BMI 30-39.9) (Acute) Adult general medical exam (Acute) Colonoscopy refused (Acute) Asthma (Acute) Abdominal hernia (Acute) Screening for breast cancer (Acute) Edema (Acute) Normocytic anemia (Acute) Past Medical History Medical History Anemia in chronic kidney disease (CKD) CKD (chronic kidney disease) stage 5, GFR less than 15 ml/min Anemia CKD (chronic kidney disease) Chronic systolic (congestive) heart failure Cardiomyopathy Essential hypertension Normocytic anemia Family History Family History Father Throat cancer Mother Hypertension Daughter In good health Daughter In good health Sister In good health Family/Other Breast cancer Family history of problems with anesthesia: No Surgical History Surgical History Hx of colonoscopy History of surgery Status post dilation and curettage History of abdominal surgery History of extraction of renal calculus History of tubal ligation History of Problems with Anesthesia: No Social History Social History Household Members: None Housing: Apartment Are you a primary care professional to a significant other at home: No Do you presently have visiting nurse or other home services: No Alcohol intake: never Patient Tobacco Use Status: Never used Tobacco Tobacco use type: Cigarette Years Smoked: 30 +/- e-Cigarette/Vaping Use: Never Used Second Hand Smoke Exposure: No service: No Current occupational status: unemployed Cognitive needs: No Hearing needs: No Vision needs: No Meds Allergies Allergy/AdvReac Type Severity Reaction Status Date / Time Penicillins Allergy Intermediate RASH Verified 09/06/24 19:08 Active Medications: Current Medications Acetaminophen (Acetaminophen 325 Mg Tablet) 650 mg PO Q6H PRN PRN Reason: Pain, Mild 1-3,fever,headache Last Admin: 09/09/24 12:31 Dose: 650 mg Calcium Carbonate (Calcium Carbonate 750 Mg Tab.Chew) 750 mg PO Q4H PRN PRN Reason: Heartburn Magnesium Hydroxide (Milk Of Magnesia 30 Ml Oral.Susp) 30 ml PO DAILY PRN PRN Reason: Constipation Magnesium Oxide (Magnesium Oxide 400 Mg Tablet) 400 mg PO DAILY [facility] Last Admin: 09/10/24 09:53 Dose: Not Given Melatonin (Melatonin 3 Mg Tablet) 6 mg PO BEDTIME PRN PRN Reason: Insomnia Metoprolol Tartrate (Metoprolol Tartrate 50 Mg Tablet) 50 mg PO BID [facility]; Protocol Last Admin: 09/10/24 10:31 Dose: 50 mg Ondansetron HCl (Ondansetron Hcl 4 Mg/2 Ml Vial) 4 mg IVPUSH Q8H PRN PRN Reason: Nausea and Vomiting Last Admin: 09/08/24 13:58 Dose: 4 mg Sevelamer Carbonate (Sevelamer Carbonate Tablet 800 Mg Tablet) 800 mg PO TID [facility] Last Admin: 09/10/24 09:53 Dose: Not Given Sodium Bicarbonate (Sodium Bicarbonate 650 Mg Tablet) 1,300 mg PO TID [facility] Last Admin: 09/10/24 09:53 Dose: Not Given Sodium Chloride (0.9 % Sodium Chloride Flush 3 Ml Syringe) 3 ml IVFLUSH QSHIFT [facility] Last Admin: 09/10/24 10:42 Dose: Not Given Exam Height,Weight and Vital Signs: Height 5 ft 4 in Weight 78.5 kg Last Vital Signs Temp 98.2 F 09/10/24 12:00 Pulse 61 09/10/24 12:00 Resp 14 09/10/24 12:00 BP 177/94 H 09/10/24 12:00 Pulse Ox 98 09/10/24 12:00 O2 Del Method Room Air 09/10/24 12:00 Pertinent Lab Results Pertinent Lab Results: Laboratory Tests 09/06/24 09/06/24 09/06/24 20:12 21:59 21:59 WBC 6.9 RBC 2.12 L Hgb 6.2 L* Hct 21.5 L MCV 101.4 H MCH 29.2 MCHC 28.8 L RDW 16.4 H Plt Count 196 MPV 10.9 Immature Gran % (Auto) 0.3 Neut % (Auto) 75.6 H Lymph % (Auto) 16.7 L [place] % (Auto) 5.5 Eos % (Auto) 1.5 Baso % (Auto) 0.4 Lymph # (Auto) 1.2 [place] # (Auto) 0.4 Eos # (Auto) 0.1 Baso # (Auto) 0.0 Abs Immat Gran (auto) 0.02 Absolute Neuts (auto) 5.2 Absolute Nucleated RBC 0.000 Nucleated RBC % (auto) 0.0 PT 11.3 INR 1.0 VBG pH VBG pCO2 VBG pO2 VBG HCO3 VBG O2 Saturation VBG Base Excess Sodium 144 Potassium 4.6 Chloride 121 H Carbon Dioxide 10 L* D Anion Gap 18 BUN 101 H Creatinine 7.27 H* Estim Creat Clear Calc 8.4 Estimated GFR 6 Random Glucose 123 H Calcium 7.8 L Magnesium 2.0 Total Bilirubin 0.2 Direct Bilirubin < 0.2 AST 13 ALT 7 Alkaline Phosphatase 65 Troponin I High Sens Total Protein 6.7 Albumin 3.6 Lipase 52 TSH Urine Color Urine Appearance Urine pH Ur Specific [place] Urine Protein Urine Glucose (UA) Urine Ketones Urine Blood Urine Nitrite Ur Leukocyte Esterase Urine RBC Urine WBC Ur Squamous Epith Cells Urine Bacteria Hyaline Casts Stool Occult Blood Blood Type A Positive Antibody Screen NEGATIVE Antigen Identification E Antigen - NEGATIVE K Antigen - NEGATIVE Crossmatch ([facility]) 09/06/24 09/06/24 09/06/24 21:59 22:00 22:11 WBC RBC Hgb Hct MCV MCH MCHC RDW Plt Count MPV Immature Gran % (Auto) Neut % (Auto) Lymph % (Auto) [place] % (Auto) Eos % (Auto) Baso % (Auto) Lymph # (Auto) [place] # (Auto) Eos # (Auto) Baso # (Auto) Abs Immat Gran (auto) Absolute Neuts (auto) Absolute Nucleated RBC Nucleated RBC % (auto) PT INR VBG pH 7.16 L* VBG pCO2 30 VBG pO2 56 VBG HCO3 11 L VBG O2 Saturation TNP VBG Base Excess -15.8 Sodium Potassium Chloride Carbon Dioxide Anion Gap BUN Creatinine Estim Creat Clear Calc Estimated GFR Random Glucose Calcium Magnesium Total Bilirubin Direct Bilirubin AST ALT Alkaline Phosphatase Troponin I High Sens Total Protein Albumin Lipase TSH Urine Color Urine Appearance Urine pH Ur Specific [place] Urine Protein Urine Glucose (UA) Urine Ketones Urine Blood Urine Nitrite Ur Leukocyte Esterase Urine RBC Urine WBC Ur Squamous Epith Cells Urine Bacteria Hyaline Casts Stool Occult Blood POSITIVE Blood Type Antibody Screen Antigen Identification c Antigen - NEGATIVE Crossmatch ([facility]) See Detail 09/07/24 09/07/24 09/07/24 03:43 03:49 17:11 WBC 5.9 7.0 RBC 2.25 L 3.76 L D Hgb 6.7 L* 11.4 L D Hct 21.3 L 33.6 L D MCV 94.7 D 89.4 D MCH 29.8 30.3 MCHC 31.5 33.9 RDW 15.2 15.4 Plt Count 175 123 L D MPV 10.7 11.2 Immature Gran % (Auto) 0.2 0.4 Neut % (Auto) 60.8 64.7 Lymph % (Auto) 31.0 24.0 [place] % (Auto) 6.2 8.3 Eos % (Auto) 1.3 1.9 Baso % (Auto) 0.5 0.7 Lymph # (Auto) 1.8 1.7 [place] # (Auto) 0.4 0.6 Eos # (Auto) 0.1 0.1 Baso # (Auto) 0.0 0.1 Abs Immat Gran (auto) 0.01 0.03 Absolute Neuts (auto) 3.6 4.5 Absolute Nucleated RBC 0.000 0.000 Nucleated RBC % (auto) 0.0 0.0 PT INR VBG pH 7.25 L VBG pCO2 24 VBG pO2 62 VBG HCO3 11 L VBG O2 Saturation TNP VBG Base Excess -14.5 Sodium 146 H Potassium 4.2 Chloride 123 H Carbon Dioxide 11 L Anion Gap 16 BUN 91 H Creatinine 7.04 H* Estim Creat Clear Calc 8.7 Estimated GFR 6 Random Glucose 99 Calcium 7.4 L Magnesium Total Bilirubin Direct Bilirubin AST ALT Alkaline Phosphatase Troponin I High Sens Total Protein Albumin Lipase TSH Urine Color Urine Appearance Urine pH Ur Specific [place] Urine Protein Urine Glucose (UA) Urine Ketones Urine Blood Urine Nitrite Ur Leukocyte Esterase Urine RBC Urine WBC Ur Squamous Epith Cells Urine Bacteria Hyaline Casts Stool Occult Blood Blood Type Antibody Screen Antigen Identification Crossmatch ([facility]) 09/08/24 09/08/24 09/08/24 16:52 19:08 20:38 WBC 8.4 RBC 3.43 L Hgb 10.4 L Hct 30.2 L MCV 88.0 MCH 30.3 MCHC 34.4 RDW 15.7 Plt Count 134 L MPV 11.0 Immature Gran % (Auto) Neut % (Auto) Lymph % (Auto) [place] % (Auto) Eos % (Auto) Baso % (Auto) Lymph # (Auto) [place] # (Auto) Eos # (Auto) Baso # (Auto) Abs Immat Gran (auto) Absolute Neuts (auto) Absolute Nucleated RBC 0.000 Nucleated RBC % (auto) 0.0 PT INR VBG pH VBG pCO2 VBG pO2 VBG HCO3 VBG O2 Saturation VBG Base Excess Sodium 140 Potassium 3.6 Chloride 114 H Carbon Dioxide 16 L Anion Gap 14 BUN 64 H Creatinine 6.05 H* Estim Creat Clear Calc 10.1 Estimated GFR 7 Random Glucose 110 Calcium 7.0 L Magnesium 1.3 L* Total Bilirubin Direct Bilirubin AST ALT Alkaline Phosphatase Troponin I High Sens 56.3 H* D Total Protein Albumin Lipase TSH 1.61 Urine Color Yellow Urine Appearance Clear Urine pH 7.5 Ur Specific [place] 1.015 Urine Protein 300 (3+) H Urine Glucose (UA) 250 H Urine Ketones Negative Urine Blood Large (3+) H Urine Nitrite Negative Ur Leukocyte Esterase Trace H Urine RBC 11-20 H Urine WBC 0-5 Ur Squamous Epith Cells 3-5 Urine Bacteria Trace Hyaline Casts 0-2 Stool Occult Blood Blood Type Antibody Screen Antigen Identification Crossmatch ([facility]) 09/09/24 09/09/24 09/09/24 07:17 07:18 20:55 WBC 6.0 6.3 RBC 3.17 L 3.61 L Hgb 9.6 L 11.0 L Hct 28.4 L 32.6 L MCV 89.6 90.3 MCH 30.3 30.5 MCHC 33.8 33.7 RDW 15.8 15.6 Plt Count 136 L 157 L MPV 10.5 10.7 Immature Gran % (Auto) Neut % (Auto) Lymph % (Auto) [place] % (Auto) Eos % (Auto) Baso % (Auto) Lymph # (Auto) [place] # (Auto) Eos # (Auto) Baso # (Auto) Abs Immat Gran (auto) Absolute Neuts (auto) Absolute Nucleated RBC 0.000 0.000 Nucleated RBC % (auto) 0.0 0.0 PT INR VBG pH VBG pCO2 VBG pO2 VBG HCO3 VBG O2 Saturation VBG Base Excess Sodium 143 Potassium 3.6 Chloride 113 H Carbon Dioxide 21 L Anion Gap 13 BUN 66 H Creatinine 6.68 H* Estim Creat Clear Calc 9.2 Estimated GFR 6 Random Glucose 94 Calcium 7.0 L Magnesium 1.6 Total Bilirubin Direct Bilirubin AST ALT Alkaline Phosphatase Troponin I High Sens 455.0 H* D Total Protein Albumin Lipase TSH Urine Color Urine Appearance Urine pH Ur Specific [place] Urine Protein Urine Glucose (UA) Urine Ketones Urine Blood Urine Nitrite Ur Leukocyte Esterase Urine RBC Urine WBC Ur Squamous Epith Cells Urine Bacteria Hyaline Casts Stool Occult Blood Blood Type Antibody Screen Antigen Identification Crossmatch ([facility]) 09/10/24 09/10/24 09/10/24 11:27 11:27 11:27 WBC Cancelled 7.3 RBC Cancelled 3.64 L Hgb Cancelled Hct MCV MCH MCHC RDW Plt Count MPV Immature Gran % (Auto) Neut % (Auto) Lymph % (Auto) [place] % (Auto) Eos % (Auto) Baso % (Auto) Lymph # (Auto) [place] # (Auto) Eos # (Auto) Baso # (Auto) Abs Immat Gran (auto) Absolute Neuts (auto) Absolute Nucleated RBC Nucleated RBC % (auto) PT INR VBG pH VBG pCO2 VBG pO2 VBG HCO3 VBG O2 Saturation VBG Base Excess Sodium Potassium Chloride Carbon Dioxide Anion Gap BUN Creatinine Estim Creat Clear Calc Estimated GFR Random Glucose Calcium Magnesium Total Bilirubin Direct Bilirubin AST ALT Alkaline Phosphatase Troponin I High Sens Total Protein Albumin Lipase TSH Urine Color Urine Appearance Urine pH Ur Specific [place] Urine Protein Urine Glucose (UA) Urine Ketones Urine Blood Urine Nitrite Ur Leukocyte Esterase Urine RBC Urine WBC Ur Squamous Epith Cells Urine Bacteria Hyaline Casts Stool Occult Blood Blood Type Antibody Screen Antigen Identification Crossmatch ([facility]) 09/10/24 09/10/24 09/10/24 11:27 11:27 11:27 WBC RBC Hgb 11.2 L Hct Cancelled 33.0 L MCV Cancelled 90.7 MCH Cancelled MCHC RDW Plt Count MPV Immature Gran % (Auto) Neut % (Auto) Lymph % (Auto) [place] % (Auto) Eos % (Auto) Baso % (Auto) Lymph # (Auto) [place] # (Auto) Eos # (Auto) Baso # (Auto) Abs Immat Gran (auto) Absolute Neuts (auto) Absolute Nucleated RBC Nucleated RBC % (auto) PT INR VBG pH VBG pCO2 VBG pO2 VBG HCO3 VBG O2 Saturation VBG Base Excess Sodium Potassium Chloride Carbon Dioxide Anion Gap BUN Creatinine Estim Creat Clear Calc Estimated GFR Random Glucose Calcium Magnesium Total Bilirubin Direct Bilirubin AST ALT Alkaline Phosphatase Troponin I High Sens Total Protein Albumin Lipase TSH Urine Color Urine Appearance Urine pH Ur Specific [place] Urine Protein Urine Glucose (UA) Urine Ketones Urine Blood Urine Nitrite Ur Leukocyte Esterase Urine RBC Urine WBC Ur Squamous Epith Cells Urine Bacteria Hyaline Casts Stool Occult Blood Blood Type Antibody Screen Antigen Identification Crossmatch ([facility]) 09/10/24 09/10/24 09/10/24 11:27 11:27 11:27 WBC RBC Hgb Hct MCV MCH 30.8 MCHC Cancelled 33.9 RDW Cancelled 15.2 Plt Count Cancelled MPV Immature Gran % (Auto) Neut % (Auto) Lymph % (Auto) [place] % (Auto) Eos % (Auto) Baso % (Auto) Lymph # (Auto) [place] # (Auto) Eos # (Auto) Baso # (Auto) Abs Immat Gran (auto) Absolute Neuts (auto) Absolute Nucleated RBC Nucleated RBC % (auto) PT INR VBG pH VBG pCO2 VBG pO2 VBG HCO3 VBG O2 Saturation VBG Base Excess Sodium Potassium Chloride Carbon Dioxide Anion Gap BUN Creatinine Estim Creat Clear Calc Estimated GFR Random Glucose Calcium Magnesium Total Bilirubin Direct Bilirubin AST ALT Alkaline Phosphatase Troponin I High Sens Total Protein Albumin Lipase TSH Urine Color Urine Appearance Urine pH Ur Specific [place] Urine Protein Urine Glucose (UA) Urine Ketones Urine Blood Urine Nitrite Ur Leukocyte Esterase Urine RBC Urine WBC Ur Squamous Epith Cells Urine Bacteria Hyaline Casts Stool Occult Blood Blood Type Antibody Screen Antigen Identification Crossmatch ([facility]) 09/10/24 09/10/24 09/10/24 11:27 11:27 11:27 WBC RBC Hgb Hct MCV MCH MCHC RDW Plt Count 155 L MPV Cancelled 10.7 Immature Gran % (Auto) Neut % (Auto) Lymph % (Auto) [place] % (Auto) Eos % (Auto) Baso % (Auto) Lymph # (Auto) [place] # (Auto) Eos # (Auto) Baso # (Auto) Abs Immat Gran (auto) Absolute Neuts (auto) Absolute Nucleated RBC Cancelled 0.000 Nucleated RBC % (auto) Cancelled PT INR VBG pH VBG pCO2 VBG pO2 VBG HCO3 VBG O2 Saturation VBG Base Excess Sodium Potassium Chloride Carbon Dioxide Anion Gap BUN Creatinine Estim Creat Clear Calc Estimated GFR Random Glucose Calcium Magnesium Total Bilirubin Direct Bilirubin AST ALT Alkaline Phosphatase Troponin I High Sens Total Protein Albumin Lipase TSH Urine Color Urine Appearance Urine pH Ur Specific [place] Urine Protein Urine Glucose (UA) Urine Ketones Urine Blood Urine Nitrite Ur Leukocyte Esterase Urine RBC Urine WBC Ur Squamous Epith Cells Urine Bacteria Hyaline Casts Stool Occult Blood Blood Type Antibody Screen Antigen Identification Crossmatch ([facility]) 09/10/24 09/10/24 09/10/24 11:27 11:27 11:27 WBC RBC Hgb Hct MCV MCH MCHC RDW Plt Count MPV Immature Gran % (Auto) Neut % (Auto) Lymph % (Auto) [place] % (Auto) Eos % (Auto) Baso % (Auto) Lymph # (Auto) [place] # (Auto) Eos # (Auto) Baso # (Auto) Abs Immat Gran (auto) Absolute Neuts (auto) Absolute Nucleated RBC Nucleated RBC % (auto) 0.0 PT INR VBG pH VBG pCO2 VBG pO2 VBG HCO3 VBG O2 Saturation VBG Base Excess Sodium 147 H Cancelled Potassium 3.8 Cancelled Chloride 112 H Carbon Dioxide Anion Gap BUN Creatinine Estim Creat Clear Calc Estimated GFR Random Glucose Calcium Magnesium Total Bilirubin Direct Bilirubin AST ALT Alkaline Phosphatase Troponin I High Sens Total Protein Albumin Lipase TSH Urine Color Urine Appearance Urine pH Ur Specific [place] Urine Protein Urine Glucose (UA) Urine Ketones Urine Blood Urine Nitrite Ur Leukocyte Esterase Urine RBC Urine WBC Ur Squamous Epith Cells Urine Bacteria Hyaline Casts Stool Occult Blood Blood Type Antibody Screen Antigen Identification Crossmatch ([facility]) 09/10/24 09/10/24 09/10/24 11:27 11:27 11:27 WBC RBC Hgb Hct MCV MCH MCHC RDW Plt Count MPV Immature Gran % (Auto) Neut % (Auto) Lymph % (Auto) [place] % (Auto) Eos % (Auto) Baso % (Auto) Lymph # (Auto) [place] # (Auto) Eos # (Auto) Baso # (Auto) Abs Immat Gran (auto) Absolute Neuts (auto) Absolute Nucleated RBC Nucleated RBC % (auto) PT INR VBG pH VBG pCO2 VBG pO2 VBG HCO3 VBG O2 Saturation VBG Base Excess Sodium Potassium Chloride Cancelled Carbon Dioxide 21 L Cancelled Anion Gap 18 Cancelled BUN 59 H Creatinine Estim Creat Clear Calc Estimated GFR Random Glucose Calcium Magnesium Total Bilirubin Direct Bilirubin AST ALT Alkaline Phosphatase Troponin I High Sens Total Protein Albumin Lipase TSH Urine Color Urine Appearance Urine pH Ur Specific [place] Urine Protein Urine Glucose (UA) Urine Ketones Urine Blood Urine Nitrite Ur Leukocyte Esterase Urine RBC Urine WBC Ur Squamous Epith Cells Urine Bacteria Hyaline Casts Stool Occult Blood Blood Type Antibody Screen Antigen Identification Crossmatch ([facility]) 09/10/24 09/10/24 09/10/24 11:27 11:27 11:27 WBC RBC Hgb Hct MCV MCH MCHC RDW Plt Count MPV Immature Gran % (Auto) Neut % (Auto) Lymph % (Auto) [place] % (Auto) Eos % (Auto) Baso % (Auto) Lymph # (Auto) [place] # (Auto) Eos # (Auto) Baso # (Auto) Abs Immat Gran (auto) Absolute Neuts (auto) Absolute Nucleated RBC Nucleated RBC % (auto) PT INR VBG pH VBG pCO2 VBG pO2 VBG HCO3 VBG O2 Saturation VBG Base Excess Sodium Potassium Chloride Carbon Dioxide Anion Gap BUN Cancelled Creatinine 6.71 H* Cancelled Estim Creat Clear Calc 9.1 Cancelled Estimated GFR 6 Random Glucose Calcium Magnesium Total Bilirubin Direct Bilirubin AST ALT Alkaline Phosphatase Troponin I High Sens Total Protein Albumin Lipase TSH Urine Color Urine Appearance Urine pH Ur Specific [place] Urine Protein Urine Glucose (UA) Urine Ketones Urine Blood Urine Nitrite Ur Leukocyte Esterase Urine RBC Urine WBC Ur Squamous Epith Cells Urine Bacteria Hyaline Casts Stool Occult Blood Blood Type Antibody Screen Antigen Identification Crossmatch ([facility]) 09/10/24 09/10/24 09/10/24 11:27 11:27 11:27 WBC RBC Hgb Hct MCV MCH MCHC RDW Plt Count MPV Immature Gran % (Auto) Neut % (Auto) Lymph % (Auto) [place] % (Auto) Eos % (Auto) Baso % (Auto) Lymph # (Auto) [place] # (Auto) Eos # (Auto) Baso # (Auto) Abs Immat Gran (auto) Absolute Neuts (auto) Absolute Nucleated RBC Nucleated RBC % (auto) PT INR VBG pH VBG pCO2 VBG pO2 VBG HCO3 VBG O2 Saturation VBG Base Excess Sodium Potassium Chloride Carbon Dioxide Anion Gap BUN Creatinine Estim Creat Clear Calc Estimated GFR Cancelled Random Glucose 88 Cancelled Calcium 8.1 L D Cancelled Magnesium 2.5 Total Bilirubin Direct Bilirubin AST ALT Alkaline Phosphatase Troponin I High Sens Total Protein Albumin Lipase TSH Urine Color Urine Appearance Urine pH Ur Specific [place] Urine Protein Urine Glucose (UA) Urine Ketones Urine Blood Urine Nitrite Ur Leukocyte Esterase Urine RBC Urine WBC Ur Squamous Epith Cells Urine Bacteria Hyaline Casts Stool Occult Blood Blood Type Antibody Screen Antigen Identification Crossmatch ([facility]) 09/10/24 11:27 WBC RBC Hgb Hct MCV MCH MCHC RDW Plt Count MPV Immature Gran % (Auto) Neut % (Auto) Lymph % (Auto) [place] % (Auto) Eos % (Auto) Baso % (Auto) Lymph # (Auto) [place] # (Auto) Eos # (Auto) Baso # (Auto) Abs Immat Gran (auto) Absolute Neuts (auto) Absolute Nucleated RBC Nucleated RBC % (auto) PT INR VBG pH VBG pCO2 VBG pO2 VBG HCO3 VBG O2 Saturation VBG Base Excess Sodium Potassium Chloride Carbon Dioxide Anion Gap BUN Creatinine Estim Creat Clear Calc Estimated GFR Random Glucose Calcium Magnesium Cancelled Total Bilirubin Direct Bilirubin AST ALT Alkaline Phosphatase Troponin I High Sens Total Protein Albumin Lipase TSH Urine Color Urine Appearance Urine pH Ur Specific [place] Urine Protein Urine Glucose (UA) Urine Ketones Urine Blood Urine Nitrite Ur Leukocyte Esterase Urine RBC Urine WBC Ur Squamous Epith Cells Urine Bacteria Hyaline Casts Stool Occult Blood Blood Type A Positive Antibody Screen NEGATIVE Antigen Identification Crossmatch ([facility]) See Detail Assessment and Plan Final Anesthetic Review Family History of Problems with Anesthesia: No History of Problems with Anesthesia: No
--- NOTE | 2024-09-10 13:03 | P.PNNP_ITS ---
Subjective Subjective Date of Service: 09/10/24 Interval history: All recent data reviewed. For colonoscopy. Physical Exam 2 Vital Signs: Vital Signs: Last Vital Signs Temp 98.2 F 09/10/24 12:00 Pulse 61 09/10/24 12:00 Resp 14 09/10/24 12:00 BP 177/94 H 09/10/24 12:00 Pulse Ox 98 09/10/24 12:00 O2 Del Method Room Air 09/10/24 12:00 BMI result Body Mass Index 29.7 Const: General: comfortable and no acute distress O rientation/consciousness: patient oriented x3 HEENT: Head: Yes normocephalic Mouth: Normal oral and palatal mucosa present Eyes: EOM: EOMs intact bilaterally Neck: Neck: Yes supple Resp: Auscultation: clear to auscultation bilaterally Cardio: Jugular venous distension: no JVD Rate: regular rate GI: Palpation (GI): Soft to palpation Auscultation: normal bowel sounds Skin: General skin exam: no rashes or lesions noted Neuro: General: patient oriented x3 and moves all extremities Objective Data Labs 09/10/24 11:27 09/10/24 11:27 Labs: Laboratory Results - last 24 hr 09/09/24 09/10/24 09/10/24 20:55 11:27 11:27 WBC 6.3 Cancelled 7.3 RBC 3.61 L Cancelled Hgb 11.0 L Hct 32.6 L MCV 90.3 MCH 30.5 MCHC 33.7 RDW 15.6 Plt Count 157 L MPV 10.7 Absolute Nucleated RBC 0.000 Nucleated RBC % (auto) 0.0 Sodium Potassium Chloride Carbon Dioxide Anion Gap BUN Creatinine Estim Creat Clear Calc Estimated GFR Random Glucose Calcium Magnesium Blood Type Antibody Screen Crossmatch ([facility]) 09/10/24 09/10/24 09/10/24 11:27 11:27 11:27 WBC RBC 3.64 L Hgb Cancelled 11.2 L Hct Cancelled 33.0 L MCV Cancelled MCH MCHC RDW Plt Count MPV Absolute Nucleated RBC Nucleated RBC % (auto) Sodium Potassium Chloride Carbon Dioxide Anion Gap BUN Creatinine Estim Creat Clear Calc Estimated GFR Random Glucose Calcium Magnesium Blood Type Antibody Screen Crossmatch ([facility]) 09/10/24 09/10/24 09/10/24 11:27 11:27 11:27 WBC RBC Hgb Hct MCV 90.7 MCH Cancelled 30.8 MCHC Cancelled 33.9 RDW Cancelled Plt Count MPV Absolute Nucleated RBC Nucleated RBC % (auto) Sodium Potassium Chloride Carbon Dioxide Anion Gap BUN Creatinine Estim Creat Clear Calc Estimated GFR Random Glucose Calcium Magnesium Blood Type Antibody Screen Crossmatch ([facility]) 09/10/24 09/10/24 09/10/24 11:27 11:27 11:27 WBC RBC Hgb Hct MCV MCH MCHC RDW 15.2 Plt Count Cancelled 155 L MPV Cancelled 10.7 Absolute Nucleated RBC Cancelled Nucleated RBC % (auto) Sodium Potassium Chloride Carbon Dioxide Anion Gap BUN Creatinine Estim Creat Clear Calc Estimated GFR Random Glucose Calcium Magnesium Blood Type Antibody Screen Crossmatch ([facility]) 09/10/24 09/10/24 09/10/24 11:27 11:27 11:27 WBC RBC Hgb Hct MCV MCH MCHC RDW Plt Count MPV Absolute Nucleated RBC 0.000 Nucleated RBC % (auto) Cancelled 0.0 Sodium 147 H Cancelled Potassium 3.8 Chloride Carbon Dioxide Anion Gap BUN Creatinine Estim Creat Clear Calc Estimated GFR Random Glucose Calcium Magnesium Blood Type Antibody Screen Crossmatch ([facility]) 09/10/24 09/10/24 09/10/24 11:27 11:27 11:27 WBC RBC Hgb Hct MCV MCH MCHC RDW Plt Count MPV Absolute Nucleated RBC Nucleated RBC % (auto) Sodium Potassium Cancelled Chloride 112 H Cancelled Carbon Dioxide 21 L Cancelled Anion Gap 18 BUN Creatinine Estim Creat Clear Calc Estimated GFR Random Glucose Calcium Magnesium Blood Type Antibody Screen Crossmatch ([facility]) 09/10/24 09/10/24 09/10/24 11:27 11:27 11:27 WBC RBC Hgb Hct MCV MCH MCHC RDW Plt Count MPV Absolute Nucleated RBC Nucleated RBC % (auto) Sodium Potassium Chloride Carbon Dioxide Anion Gap Cancelled BUN 59 H Cancelled Creatinine 6.71 H* Cancelled Estim Creat Clear Calc 9.1 Estimated GFR Random Glucose Calcium Magnesium Blood Type Antibody Screen Crossmatch ([facility]) 09/10/24 09/10/24 09/10/24 11:27 11:27 11:27 WBC RBC Hgb Hct MCV MCH MCHC RDW Plt Count MPV Absolute Nucleated RBC Nucleated RBC % (auto) Sodium Potassium Chloride Carbon Dioxide Anion Gap BUN Creatinine Estim Creat Clear Calc Cancelled Estimated GFR 6 Cancelled Random Glucose 88 Cancelled Calcium 8.1 L D Magnesium Blood Type Antibody Screen Crossmatch ([facility]) 09/10/24 09/10/24 11:27 11:27 WBC RBC Hgb Hct MCV MCH MCHC RDW Plt Count MPV Absolute Nucleated RBC Nucleated RBC % (auto) Sodium Potassium Chloride Carbon Dioxide Anion Gap BUN Creatinine Estim Creat Clear Calc Estimated GFR Random Glucose Calcium Cancelled Magnesium 2.5 Cancelled Blood Type A Positive Antibody Screen NEGATIVE Crossmatch ([facility]) See Detail Procedures Date of Service Date of Service: 09/10/24 Assessment & Plan Assessment and plan (1) CKD (chronic kidney disease) stage 5, GFR less than 15 ml/min: Status: Acute Plan CKd 5 approaching ESRD No overt s/s of uremia Bicarb better; K stable Needs to start to dialysis soon From a renal stand point, no absolute contraindication for colonoscopy C/W rest of current supportive care for now Progress Note: Quality Stroke Does the patient have a stroke diagnosis?: No
--- NOTE | 2024-09-10 14:00 | MHC.CM.PN ---
EMR reviewed and per MD rounds, pt is not medically cleared for discharge today due to management of anemia/GI bleed, getting a colonoscopy today.
[2024-09-10 14:11] LABS: Glucose, Whole Blood 86 mg/dL (60-115)
[2024-09-10] MEDS: Lactated Ringers 1,000 ML 50 ML IVCONT (14:31)
--- NOTE | 2024-09-10 14:52 | MHC.SHP ---
Pre-Procedural Eval Section A - 24 Hr Update-Section A only Date of Service: 09/10/24 Section B - Complete if H&P > 30 days Chief Complaint: Gi bleed Present Medications: see Short Stay Collaborative assessment Allergies: Allergies Allergy/AdvReac Type Severity Reaction Status Date / Time Penicillins Allergy Intermediate RASH Verified 09/06/24 19:08 Review of Systems Review of Systems Comment: 10 point ROS negative Exam Exam Comment: Ill appearing nonicteric abd soft, nontender pitting edema b/l Plan Diagnosis/Plan: Unchanged I have reviewed the history and physical and performed a pertinent physical examination on my patient. No changes have occurred unless specified. Time Spent With Patient Time: Total time managing care of this patient today ____ minutes.
--- NOTE | 2024-09-10 14:54 | P.OPN-COLO_ITS ---
Colonoscopy Operative Note Operative Note Date of Service: 09/10/24 Narrative: Procedure: Upper endoscopy and colonoscopy Indication: Anemia, GIB Endoscopist: Miranda Singh MD Anesthesia Provider: Soraida Mon Anesthesia type: MAC Instrument: [id number]-[id number] and [id number] Colonoscopy Procedure:? The procedure, indications, preparation and potential complications were reviewed with the patient with the help of Irish intepreter, who indicated understanding and gave written informed consent to proceed. A digital rectal exam was performed which was abnormal for hemorrhoids.? A distal attachment cap was affixed to the tip of the scope and the colonoscope was then inserted through the anus and advanced through the colon and advanced to the cecum at 75 cm and terminal ileum.? Appendiceal orifice and ileocecal valve were identified. Mucosa was carefully examined under high definition white light as the instrument was slowly withdrawn in a retrograde panoramic fashion. Retroflexion was performed in rectum. The procedure was not difficult. The quality of the prep was BBPS: 2+2+3 = adequate Withdrawal time 15 minutes Limitations: No limitations Findings: Mucosa: Normal colon and terminal ileum mucosa. Protruding lesions: * 1 sessile polyp of size 4 mm in transverse colon. Cold snare polypectomy was performed. The polyp was completely removed but not retrieved. * One pedunculated polyp of size 15 mm in sigmoid colon at 35 cm. Hot snare polypectomy was performed. The polyp was completely removed and retrieved. * Large internal hemorrhoids with stigmata of recent bleeding. EGD Procedure:?? The patient was then turned for the colonoscopy. The endoscope was introduced through the mouth, and advanced to the 2nd part of the duodenum. The mucosa was carefully examined on slow withdrawal of the endoscope. The patient tolerated the procedure well. There were no immediate complications.? EGD Findings:? * Esophagus:? Normal esophageal mucosa was noted. The Z-line was at 38 cm. There was a large hiatal hernia with the diaphragmatic pinch at 45 cm. * Stomach:? Normal gastric mucosa. Retroflexion was performed in the cardia revealing large hiatal hernia. No samy erosions noted. * Duodenum:? Normal duodenal mucosa. Impression: 1. Normal esophagus 2. Normal stomach 3. Normal duodenum 4. Normal colon and terminal ileum mucosa 5. 2 polyps removed 6. Large bleeding internal hemorrhoids Recommendations:?? * Follow-up path results * Bleeding source appears to be internal hemorrhoids * Anusol suppositories * Sitz baths * Consider surgical consultation if pt continues to have significant LGIB. * Repeat colonoscopy for polyp surveillance in 3 years if its an adenoma.
[2024-09-10] MEDS: Sevelamer Carbonate Tablet 800 MG TABLET PO (21:00)
[2024-09-10] MEDS: Sodium Bicarbonate 650 MG TABLET 1300 MG PO (21:00)
[2024-09-10] MEDS: 0.9 % Sodium Chloride Flush 3 ML SYRINGE IVFLUSH (21:01)
[2024-09-11 03:51] VITALS: BP 175/81; PULSE 63; RESP 18; TEMP 36.3; O2SAT 98
[2024-09-11] MEDS: Acetaminophen 325 MG TABLET 650 MG PO (04:19)
[2024-09-11 06:55] VITALS: BP 174/80; PULSE 68; RESP 18; TEMP 36.7; O2SAT 95
--- NOTE | 2024-09-11 08:23 | HO.POSTANES ---
Post Anesthesia Evaluation Post Anesthesia Evaluation Date of Service: 09/11/24 Vital Signs: Vital Signs Temp Pulse Resp BP Pulse Ox O2 Del Method 09/11/24 06:55 98.0 F 68 18 174/80 H 95 Room Air 09/11/24 03:51 97.3 F 63 18 175/81 H 98 Room Air 09/10/24 23:58 97.9 F 56 19 180/90 H 99 Room Air Anesthesia: Monitored Mental Status: Awake Pain Control: Satisfactory Nausea/Vomiting: None Hydration: Adequate Anesthesia-Related Issues: No Anes. Related Issues
[2024-09-11] MEDS: Sevelamer Carbonate Tablet 800 MG TABLET PO (08:48)
[2024-09-11] MEDS: 0.9 % Sodium Chloride Flush 3 ML SYRINGE IVFLUSH (08:48)
[2024-09-11] MEDS: Metoprolol Tartrate 50 MG TABLET PO (08:48)
[2024-09-11] MEDS: Magnesium Oxide 400 MG TABLET PO (08:48)
[2024-09-11] MEDS: Sodium Bicarbonate 650 MG TABLET 1300 MG PO (08:48)
--- NOTE | 2024-09-11 08:58 | PC.NURSE ---
pt blood pressure 174/80 at 700 vitals. Pt received morning dose of metoprolol. MD notified , no additional orders at this time.
[2024-09-11 09:55] LABS: Hematocrit 35.7 % (37.0-47.0); Hemoglobin 11.8 g/dl (12.0-16.0); Mean Corpuscular HGB Conc 33.1 g/dl (31.0-35.0); Mean Corpuscular Hemoglobin 30.2 pg (27.0-33.0); Mean Corpuscular Volume 91.3 fL (80.0-98.0); Mean Platelet Volume 12.1 fL (9.4-12.3); PLT CLUMP 1; Red Blood Count 3.91 X10*6/uL (4.20-5.50); Red Cell Distribution Width 14.9 % (11.0-16.0)
[2024-09-11 10:10] LABS: Anion Gap 20 (12-20); Blood Urea Nitrogen 66 mg/dL (9-16); Calcium 8.2 mg/dL (8.4-10.2); Carbon Dioxide 15 mmol/L (22-29); Chloride 113 mmol/L (96-108); Creatinine Clr Calc Pharmacy 9.2; Estimated Glomerular Filt Rate 6; Glucose Random 125 mg/dL (60-115); Sodium 143 mmol/L (135-145)
[2024-09-11 10:53] VITALS: BP 159/77; PULSE 61; RESP 18; TEMP 36.3; O2SAT 98
--- NOTE | 2024-09-11 11:09 | PM.DS ---
DS: Providers Provider Date of Service: 09/11/24 Date of admission: 09/06/24 22:22 Date of discharge: 09/11/24 Primary care physician: Britt De MD Consults: 09/06/24 22:15 Consult to Gastroenterology Routine Consulting Provider: Tarun Thurman Reason for consultation: GI bleed Consult to Nephrology Routine Consulting Provider: [facility] Reason for consultation: worsening CKD with met acidosis 09/08/24 13:01 Consult to Cardiology Routine Consulting Provider: [facility] Reason for consultation: new afib Attending physician on discharge: Teofilo Bass Discharging clinician: Yudy Lafleur DS: Diagnosis Discharge Diagnosis (1) CKD (chronic kidney disease) stage 5, GFR less than 15 ml/min: Status: Acute (2) Atrial fibrillation with rapid ventricular response: Status: Acute (3) GI bleed: Status: Acute (4) Metabolic acidosis: Status: Acute DS: Summary Hospital Course Hospital Course: From H&P on the day of admission Pt is a 59-year-old female with a PMH significant for?CKD stage 5 not on hemodialysis, HTN, HFrEF (LVEF 40-45% on 11/2023), chronic iron deficiency anemia, and hx of noncompliance with medications or follow up appointments who presents to the ED with?intractable diarrhea with bright red blood since yesterday at midnight. Pt reports also experienced some vomiting last night from midnight to 02:00. No hematemesis. No abdominal pain. Pt reports bright red blood per rectum from approximately 01:00 until earlier this morning. Last episode of diarrhea just prior to presentation to the ED. Reports experienced similar though much less severe episodes of diarrhea on 08/26 and . Has been feeling lightheaded, dizzy, and weak. Some increased SOB with exertion. No chest pain/pressure, palpitations. Denies fever or chills. In the ED pt had slightly soft BP of 137/46, vitals otherwise WNL and stable. Labs were significant for H&H 6.2/21.5, chloride 121, bicarb 10, BUN 101 and creatinine 7.27. Stool positive for occult blood. Pt was treated with Protonix and transfused 2 units PRBCs. Pt will be admitted to the hospital treatment and further evaluation of acute on chronic anemia secondary to possible LGIB Acute atrial fibrillation with rapid ventricular response. Started 1/6/25, received 2 doses of IV Cardizem 15 mg and started on IV Cardizem drip and then Converted back to normal sinus rhythm within a few hours. seen by Cardiology, changed to metoprolol 50 mg b.i.d. Demand NSTEMI Elevated troponin, Initially 56 with repeat of 455. no chest pain. Likely secondary to multiple issues including anemia, atrial fibrillation, GI bleed Started on metoprolol. Repeat echocardiogram showing EF of 50% with basal inferior segment hypokinesis, no valvular pathology. Cardiology rec start aspirin, statin with plan for close outpatient follow up. has not been compliant with follow up in the past. Uncontrolled hypertension. Started on metoprolol, Norvasc Acute on chronic anemia Initially H&H 6.2/21.5, reported intractable hematochezia, stool positive for occult blood secondary to LGIB. s/p 4 units PRBC. NM bleeding scan negative GI consult> underwent colonoscopy 09/10 showing bleeding internal hemorrhoids. Okay to start aspirin as per GI. H/H stable, recommend Sitz bath, anusol suppository CKD 5 with chronic metabolic acidosis Creatinine 6.[address] Betancur, has not yet started hemodialysis. no indication for inpatient dialysis at this time. Renal function stable. Recommend to continue current dose of oral sodium bicarbonate. Close Outpatient follow-up with Nephrology Time Attestation Discharge Coordination Time (in mins): 40 Quality: Safe Use of Opioids Does Pt have an Active Cancer Diagnosis on the Problem List?: No Quality: Stroke Does the patient have a stroke diagnosis?: No Physical Exam Vital Signs: Vital Signs: Last Vital Signs Temp 97.3 F 09/11/24 10:53 Pulse 61 09/11/24 10:53 Resp 18 09/11/24 10:53 BP 159/77 H 09/11/24 10:53 Pulse Ox 98 09/11/24 10:53 O2 Del Method Room Air 09/11/24 10:53 BMI result Body Mass Index 29.7 Const: General: cooperative, comfortable, no acute distress, alert and awake Nutritional Appearance: average body habitus Orientation/consciousness: patient oriented x3 Resp: Effort & Inspection: normal respiratory effort, able to speak in complete sentences, no respiratory distress and no use of accessory muscles Cardio: Rate: regular rate GI: Inspection: No distended Palpation (GI): Soft to palpation Neuro: General: patient oriented x3 and moves all extremities DS: Data Data Completed and Pending Completed studies during hospitalization [Text1]: Procedures Excision of Duodenum, Via Natural or Artificial Opening Endoscopic, Diagnostic (11/09/23) Excision of Esophagogastric Junction, Via Natural or Artificial Opening Endoscopic, Diagnostic (11/09/23) Inspection of Lower Intestinal Tract, Via Natural or Artificial Opening Endoscopic (11/09/23) Transfusion of Nonautologous Red Blood Cells into Peripheral Vein, Percutaneous Approach (11/09/23) Pending studies at discharge: Pending at discharge 09/10/24 15:11 Surgical [PTH] Routine Labs on day of discharge: Laboratory Results - last 24 hr 09/06/24 09/10/24 09/10/24 21:59 11:27 11:27 WBC Cancelled 7.3 RBC Cancelled Hgb Hct MCV MCH MCHC RDW Plt Count MPV Absolute Nucleated RBC Nucleated RBC % (auto) Sodium Potassium Chloride Carbon Dioxide Anion Gap BUN Creatinine Estim Creat Clear Calc Estimated GFR POC Glucose Random Glucose Calcium Magnesium Blood Type Antibody Screen Crossmatch ([facility]) See Detail 09/10/24 09/10/24 09/10/24 11:27 11:27 11:27 WBC RBC 3.64 L Hgb Cancelled 11.2 L Hct Cancelled 33.0 L MCV Cancelled MCH MCHC RDW Plt Count MPV Absolute Nucleated RBC Nucleated RBC % (auto) Sodium Potassium Chloride Carbon Dioxide Anion Gap BUN Creatinine Estim Creat Clear Calc Estimated GFR POC Glucose Random Glucose Calcium Magnesium Blood Type Antibody Screen Crossmatch ([facility]) 09/10/24 09/10/24 09/10/24 11:27 11:27 11:27 WBC RBC Hgb Hct MCV 90.7 MCH Cancelled 30.8 MCHC Cancelled 33.9 RDW Cancelled Plt Count MPV Absolute Nucleated RBC Nucleated RBC % (auto) Sodium Potassium Chloride Carbon Dioxide Anion Gap BUN Creatinine Estim Creat Clear Calc Estimated GFR POC Glucose Random Glucose Calcium Magnesium Blood Type Antibody Screen Crossmatch ([facility]) 09/10/24 09/10/24 09/10/24 11:27 11:27 11:27 WBC RBC Hgb Hct MCV MCH MCHC RDW 15.2 Plt Count Cancelled 155 L MPV Cancelled 10.7 Absolute Nucleated RBC Cancelled Nucleated RBC % (auto) Sodium Potassium Chloride Carbon Dioxide Anion Gap BUN Creatinine Estim Creat Clear Calc Estimated GFR POC Glucose Random Glucose Calcium Magnesium Blood Type Antibody Screen Crossmatch ([facility]) 09/10/24 09/10/24 09/10/24 11:27 11:27 11:27 WBC RBC Hgb Hct MCV MCH MCHC RDW Plt Count MPV Absolute Nucleated RBC 0.000 Nucleated RBC % (auto) Cancelled 0.0 Sodium 147 H Cancelled Potassium 3.8 Chloride Carbon Dioxide Anion Gap BUN Creatinine Estim Creat Clear Calc Estimated GFR POC Glucose Random Glucose Calcium Magnesium Blood Type Antibody Screen Crossmatch ([facility]) 09/10/24 09/10/24 09/10/24 11:27 11:27 11:27 WBC RBC Hgb Hct MCV MCH MCHC RDW Plt Count MPV Absolute Nucleated RBC Nucleated RBC % (auto) Sodium Potassium Cancelled Chloride 112 H Cancelled Carbon Dioxide 21 L Cancelled Anion Gap 18 BUN Creatinine Estim Creat Clear Calc Estimated GFR POC Glucose Random Glucose Calcium Magnesium Blood Type Antibody Screen Crossmatch ([facility]) 09/10/24 09/10/24 09/10/24 11:27 11:27 11:27 WBC RBC Hgb Hct MCV MCH MCHC RDW Plt Count MPV Absolute Nucleated RBC Nucleated RBC % (auto) Sodium Potassium Chloride Carbon Dioxide Anion Gap Cancelled BUN 59 H Cancelled Creatinine 6.71 H* Cancelled Estim Creat Clear Calc 9.1 Estimated GFR POC Glucose Random Glucose Calcium Magnesium Blood Type Antibody Screen Crossmatch ([facility]) 09/10/24 09/10/24 09/10/24 11:27 11:27 11:27 WBC RBC Hgb Hct MCV MCH MCHC RDW Plt Count MPV Absolute Nucleated RBC Nucleated RBC % (auto) Sodium Potassium Chloride Carbon Dioxide Anion Gap BUN Creatinine Estim Creat Clear Calc Cancelled Estimated GFR 6 Cancelled POC Glucose Random Glucose 88 Cancelled Calcium 8.1 L D Magnesium Blood Type Antibody Screen Crossmatch ([facility]) 09/10/24 09/10/24 09/10/24 11:27 11:27 14:08 WBC RBC Hgb Hct MCV MCH MCHC RDW Plt Count MPV Absolute Nucleated RBC Nucleated RBC % (auto) Sodium Potassium Chloride Carbon Dioxide Anion Gap BUN Creatinine Estim Creat Clear Calc Estimated GFR POC Glucose 86 Random Glucose Calcium Cancelled Magnesium 2.5 Cancelled Blood Type A Positive Antibody Screen NEGATIVE Crossmatch ([facility]) See Detail 09/11/24 09:01 WBC RBC Hgb Hct MCV MCH MCHC RDW Plt Count MPV Absolute Nucleated RBC Nucleated RBC % (auto) Sodium 143 Potassium 5.0 D Chloride 113 H Carbon Dioxide 15 L Anion Gap 20 BUN 66 H Creatinine 6.64 H* Estim Creat Clear Calc 9.2 Estimated GFR 6 POC Glucose Random Glucose 125 H Calcium 8.2 L Magnesium Blood Type Antibody Screen Crossmatch ([facility]) Discharge Plan Discharge Anticipated Discharge Date/Time: 09/11/24 11:55 Patient Disposition: Home, Self-Care Discharge Diagnosis: GI bleeding/anemia/ internal Hemorrhoids uncontrolled BP CKD5/metabolic acidosis Referrals: Danis Betancur MD [Physician] - 1 Week Britt Chavez MD [Primary Care Provider] - 1 Week Renard Crespo MD [Physician] - 1 Week Discharge Medications: New metoprolol tartrate 50 mg Tablet 50 mg PO BID 90 Days Qty: 180 0RF Protocol: Hold for SBP/HR < HOLD for SBP < : 90 HOLD for HR < : 60 amlodipine [Norvasc] 10 mg tablet 10 mg PO DAILY 90 Days Qty: 90 0RF atorvastatin 80 mg tablet 80 mg PO BEDTIME 90 Days Qty: 90 0RF hydrocortisone acetate [Anusol-HC] 25 mg suppository 25 mg [place] BEDTIME PRN (Reason: hemorrhoids) Qty: 24 0RF (DME) sitz bath Kit See Rx Instructions .Route Qty: 1 0RF Rx Instructions: As directed aspirin 81 mg tablet,delayed release (DR/EC) 81 mg PO DAILY 90 Days Qty: 90 0RF Continued sodium bicarbonate 650 mg tablet 1,300 mg PO TID Qty: 180 2RF ferrous sulfate 325 mg (65 mg iron) tablet,delayed release (DR/EC) 325 mg PO BID Qty: 180 1RF sevelamer HCl 800 mg tablet 800 mg PO TID 30 Days Qty: 90 3RF Rx Instructions: must administer with a meal/food Discontinued carvedilol 6.25 mg tablet 6.25 mg PO BID Qty: 180 1RF No Action (DME) blood pressure monitor Kit See Rx Instructions .Route Qty: 1 0RF Rx Instructions: As directed (DME) sitz bath Kit See Rx Instructions .Route Qty: 1 0RF Rx Instructions: As directed (DME) bed rail See Rx Instructions .Route .MEDSUPPLY Qty: 1 0RF Rx Instructions: As directed (DME) hand held shower See Rx Instructions .Route .MEDSUPPLY Qty: 1 0RF Rx Instructions: As directed (DME) Grab bar Misc See Rx Instructions .Route Qty: 1 0RF Rx Instructions: As directed (DME) pill box twice daily See Rx Instructions .Route .MEDSUPPLY Qty: 1 0RF Rx Instructions: As directed (DME) Shower Chair Misc See Rx Instructions .Route Qty: 1 0RF Rx Instructions: with back Discharge Orders: Discharge Order (Routine); Ordered 09/11/24 Ordered By: Yudy Lafleur Activity on Discharge: As tolerated Stand Alone Forms: Patient Portal Discharge page Print Language: Sinhala Care Plan Goals: See below Health Concerns: GI bleeding due to internal hemorrhoids - can use Anusol suppositories and Sitz bath Uncontrolled high blood pressure. You have been started on Norvasc and metoprolol, take as prescribed Possible coronary artery disease. You need further workup outside the hospital, call to schedule follow-up appointment in Cardiology office. Take aspirin, statin, metoprolol as prescribed. chronic kidney disease/with chronic metabolic acidosis-continue taking sodium bicarbonate as prescribed. Call to schedule outpatient follow-up appointment with Nephrology Plan of Treatment: as above Assessment: See discharge summary Patient Instructions: Sitz Bath (GEN)
[2024-09-11 11:24] LABS: Platelet Count 126 X10*3/uL (160-400)
--- NOTE | 2024-09-11 12:13 | MHC.CM.PN ---
Patient has been medically cleared for dc to home today, self care;Daughter will transport.CM met with Patient at bedside and addressed IMM with her; original was given to Patient and a copy has been placed on the chart.
== END 2024-09-11 13:18 | disposition home or self-care (01) | DRG 394 ==
LOC: HO.ED 21:48 → HO.EDOVER 22:36 → HO.S3 09-07 14:22 → HO.IMC 09-08 13:50
PROVIDERS: Internal Medicine; Nurse Practitioner Acute Care; Physician Assistant; Admitting Provider Student in an Organized Health Care Education/Training Program; Emergency Provider Emergency Medicine; PCP Internal Medicine; Visit Provider Physician Assistant Medical
PROC: 0DJD8ZZ Inspection of Lower Intestinal Tract, Via Natural or Artificial Opening Endoscopic (ICD-10-PCS; CPT 45378; principal; 2024-09-10 14:30)
DX: K64.8 Other hemorrhoids (principal); D62 Acute posthemorrhagic anemia; K62.5 Hemorrhage of anus and rectum; I13.2 Hypertensive heart and chronic kidney disease with heart failure and with stage 5 chronic kidney disease, or end stage renal disease; N18.5 Chronic kidney disease, stage 5; E87.22 Chronic metabolic acidosis; N25.81 Secondary hyperparathyroidism of renal origin; N17.9 Acute kidney failure, unspecified; I50.22 Chronic systolic (congestive) heart failure; K63.5 Polyp of colon; D63.1 Anemia in chronic kidney disease; I48.91 Unspecified atrial fibrillation; Z87.891 Personal history of nicotine dependence; Z79.899 Other long term (current) drug therapy
CPT/HCPCS: 36415; 78278; 80048; 80076; 81001; 82272; 82803; 82947; 83690; 83735; 84443; 84484; 85025; 85027; 85610; 86850; 86900; 86901; 86902; 86905; 86920; 86922; 88305; 93005; 93306; 99285; A9560; J0131; J0171; J0360; J2003; J2405; J2470; J2597; J2704; J3475; J7120; P9016; Q5106; Q9957

== ENCOUNTER 2024-09-06 22:22 | Outpatient (BNV) | payer OTHER, SELFPAY | END 2024-09-08 12:48 | PROVIDERS: Admitting Provider Student in an Organized Health Care Education/Training Program; Emergency Provider Emergency Medicine; PCP Internal Medicine; Visit Provider Internal Medicine | DX: R94.31 Abnormal electrocardiogram [ECG] [EKG] (principal) | CPT/HCPCS: 93010 ==

== ENCOUNTER 2024-09-06 22:22 | Outpatient (BNV) | payer OTHER, SELFPAY | END 2024-09-09 13:15 | PROVIDERS: Admitting Provider Student in an Organized Health Care Education/Training Program; Emergency Provider Emergency Medicine; PCP Internal Medicine; Visit Provider Radiology Diagnostic Radiology | DX: K92.2 Gastrointestinal hemorrhage, unspecified (principal) | CPT/HCPCS: 78278 ==

== ENCOUNTER 2024-09-06 22:22 | Outpatient (BNV) | payer OTHER, SELFPAY | END 2024-09-09 07:00 | PROVIDERS: Admitting Provider Student in an Organized Health Care Education/Training Program; Emergency Provider Emergency Medicine; PCP Internal Medicine; Visit Provider Internal Medicine | DX: I45.81 Long QT syndrome (principal) | CPT/HCPCS: 93010; 93306 ==

== ENCOUNTER → 2024-09-06 22:22 | Outpatient (BNV) | payer OTHER, SELFPAY | PROVIDERS: Admitting Provider Student in an Organized Health Care Education/Training Program; Emergency Provider Emergency Medicine; PCP Internal Medicine; Visit Provider Student in an Organized Health Care Education/Training Program | DX: K92.2 Gastrointestinal hemorrhage, unspecified (principal) | CPT/HCPCS: 99223; 99232 ==

== ENCOUNTER → 2024-09-06 22:22 | Outpatient (BNV) | payer OTHER, SELFPAY | PROVIDERS: Admitting Provider Student in an Organized Health Care Education/Training Program; Emergency Provider Emergency Medicine; PCP Internal Medicine; Visit Provider Internal Medicine | DX: I48.91 Unspecified atrial fibrillation (principal); I21.4 Non-ST elevation (NSTEMI) myocardial infarction | CPT/HCPCS: 99223 ==

== ENCOUNTER → 2024-09-06 22:22 | Outpatient (BNV) | payer OTHER, SELFPAY | PROVIDERS: Admitting Provider Student in an Organized Health Care Education/Training Program; Emergency Provider Emergency Medicine; PCP Internal Medicine; Visit Provider Internal Medicine Hypertension Specialist | DX: N18.5 Chronic kidney disease, stage 5 (principal); E87.21 Acute metabolic acidosis; K92.2 Gastrointestinal hemorrhage, unspecified | CPT/HCPCS: 99223; 99232 ==

== ENCOUNTER → 2024-09-06 22:22 | Outpatient (BNV) | payer OTHER, SELFPAY | PROVIDERS: Admitting Provider Student in an Organized Health Care Education/Training Program; Emergency Provider Emergency Medicine; PCP Internal Medicine; Visit Provider Internal Medicine | DX: K92.2 Gastrointestinal hemorrhage, unspecified (principal); D64.9 Anemia, unspecified; E87.20 Acidosis, unspecified; R19.7 Diarrhea, unspecified; N18.5 Chronic kidney disease, stage 5; I48.91 Unspecified atrial fibrillation; K64.9 Unspecified hemorrhoids | CPT/HCPCS: 99232 ==

== ENCOUNTER 2024-09-14 06:38 | Inpatient (IN) | payer OTHER, SELFPAY ==
[2024-09-14] VITALS (8 sets, daily range): BP systolic 115–162; BP diastolic 64–83; PULSE 60–90; RESP 14–20; TEMP 36.4–36.8; O2SAT 96–100; BMI 23.3
--- NOTE | 2024-09-14 08:08 | ED_ITS ---
HPI - GI Bleed General Chief complaint: GI Bleed Stated complaint: blood in stools in hospital 2 days ago same issue Time Seen by Provider: 09/14/24 08:08 Source: patient Limitations: no limitations History of Present Illness HPI Narrative: This is a 59 years old the patient presented to the emergency department with a chief complaint of rectal bleeding since yesterday. Patient was seen recently with the GI bleeding on September 06 at the time she had a hemoglobin of 6.2 , patient had an upper endoscopy colonoscopy on September 10 she had a sessile polyp of 4 mm in the transverse colon which was removed also she had a normal upper endoscopy. complaint: gross hematochezia Onset (ago): day(s) (1) Pain Consistency: constant Severity: moderate Relieving factors: none Exacerbating factors: none Associated symptoms: abdominal pain, nausea and vomiting Treatments Prior to Arrival: none Related Data Home Medications ?Medication ?Instructions ?Recorded ?Confirmed carvedilol 6.25 mg tablet 6.25 mg PO BID 09/14/24 09/14/24 Previous Rx's ?Medication ?Instructions ?Recorded blood pressure monitor #1 ea 11/10/23 sitz bath #1 ea 11/13/23 Grab bar #1 ea 11/22/23 Shower Chair #1 ea 11/22/23 bed rail #1 11/22/23 hand held shower #1 11/22/23 pill box twice daily #1 ea 11/22/23 ferrous sulfate 325 mg (65 mg 325 mg PO BID #180 tabs 07/04/24 iron) tablet,delayed release sevelamer HCl 800 mg tablet 800 mg PO TID 30 days #90 tabs 07/04/24 sodium bicarbonate 650 mg tablet 1,300 mg (2 x 650 mg) PO TID #180 07/04/24 tabs amlodipine 10 mg tablet (Norvasc) 10 mg PO DAILY 90 days #90 tabs 09/11/24 aspirin 81 mg tablet,delayed 81 mg PO DAILY 90 days #90 tabs 09/11/24 release atorvastatin 80 mg tablet 80 mg PO BEDTIME 90 days #90 tabs 09/11/24 hydrocortisone acetate 25 mg 25 mg IL BEDTIME PRN hemorrhoids 09/11/24 rectal suppository (Anusol-HC) #24 ea metoprolol tartrate 50 mg tablet 50 mg PO BID 90 days #180 tabs 09/11/24 sitz bath #1 ea 09/11/24 Allergies Allergy/AdvReac Type Severity Reaction Status Date / Time Penicillins Allergy Intermediate RASH Verified 09/14/24 06:46 Review of Systems 2 Constitutional: Constitutional: Reports no additional constitutional complaints Cardiovascular: Cardiovascular: Reports no additional cardiovascular complaints Respiratory: Respiratory: Reports no additional respiratory complaints Gastrointestinal: Gastrointestinal: Reports other (re=ctal bleeding) [facility] Past Medical History Attestation statement: The following information was validated with the patient. Source: unable to obtain Medical History Anemia in chronic kidney disease (CKD) CKD (chronic kidney disease) stage 5, GFR less than 15 ml/min Anemia CKD (chronic kidney disease) Chronic systolic (congestive) heart failure Cardiomyopathy Essential hypertension Normocytic anemia Surgical History Hx of colonoscopy History of surgery Status post dilation and curettage History of abdominal surgery History of extraction of renal calculus History of tubal ligation Family History Family History Father Throat cancer Mother Hypertension Daughter In good health Daughter In good health Sister In good health Family/Other Breast cancer Social History Social History Household Members: None Housing: Apartment Are you a primary floor care technician to a significant other at home: No Do you presently have visiting nurse or other home services: No Alcohol intake: never Patient Tobacco Use Status: Never used Tobacco Tobacco use type: Cigarette Years Smoked: 30 +/- Smoked in Last 30 Days: No e-Cigarette/Vaping Use: Never Used Second Hand Smoke Exposure: No Use of substances other than those prescribed or required for medical reasons: No Advance Directives: No Advance Directives Information Provided: No service: No Current occupational status: unemployed Cognitive needs: No Hearing needs: No Vision needs: No Physical Exam 2 Vital Signs: Vital Signs: Last Vital Signs Temp 97.8 F 09/14/24 08:14 Pulse 68 09/14/24 11:42 Resp 18 09/14/24 11:42 BP 137/83 09/14/24 11:42 Pulse Ox 99 09/14/24 11:42 O2 Del Method Room Air 09/14/24 11:42 BMI result Body Mass Index 23.3 Const: General: cooperative Nutritional Appearance: well nourished O rientation/consciousness: patient oriented x3 Limitations: no limitations HEENT: Head: Yes normal to inspection General nose exam: Normal external nose present Face and sinus: Yes normal facial exam Throat: Yes posterior oropharynx normal Neck: Neck: Yes normal visual inspection Resp: Effort & Inspection: normal respiratory effort Auscultation: clear to auscultation bilaterally Cardio: Jugular venous distension: no JVD Rate: regular rate Rhythm: r egular rhythm GI: Inspection: Yes normal to inspection Palpation (GI): Soft to palpation Auscultation: normal bowel sounds Rectal Exam - Female: other (Positive rectal exam for blood) Skin: General skin exam: no rashes or lesions noted and elasticity normal Neuro: General: patient oriented x3 Course Reevaluation(s) Reevaluation #1: spoke with GI DR Carmona Time: 09:50 Reevaluation #2: Spoke with renal Dr Kala Betancur Time: 09:50 Reevaluation #3: Remained hemodynamically stable waiting for bed Time: 11:49 Medications Administered Discontinued Medications Generic Name Dose Route Start Last Admin Trade Name Freq PRN Reason Stop Dose Admin Sodium Chloride 1,000 mls @ 999 mls/hr 09/14/24 10:00 09/14/24 11:41 Ns IVCONT 09/14/24 11:00 Infused .Q1H1M ADELA Infusion Medical Decision Making Medical Decision Making [facility] Narrative: Patient is here with rectal bleeding we will check a H&H administer IV fluid At 10:00 a.m. on re-examination she remained stable abdomen is soft nontender a appropriate consultation obtained with GI and ham curer, spoke with the hospitalist patient will be admitted serial CBC and monitoring Differential Diagnosis Differential Diagnoses: The differential diagnosis associated with the presentation includes Diverticuli bleeding, internal hemorrhoid, bleeding from polyp Admission/Observation Consideration of admission/observation: Escalation of care including admission/observation considered Consult Healthcare Provider Management of the patient was discussed with: Hospitalist and Community Health Program Representative Lab Data MDM Lab Attestation statement: I reviewed the patient's lab results. 09/14/24 11:39 09/14/24 08:16 Labs: Lab Results 01/12/25 01/12/25 01/12/25 Range/Units 08:15 08:16 08:43 WBC 12.1 H (4.8-10.8) X10*3/uL RBC 3.06 L D (4.20-5.50) X10*6/uL Hgb 9.3 L D (12.0-16.0) g/dl Hct 28.6 L (37.0-47.0) % MCV 93.5 (80.0-98.0) fL MCH 30.4 (27.0-33.0) pg MCHC 32.5 (31.0-35.0) g/dl RDW 14.6 (11.0-16.0) % Plt Count 149 L (160-400) X10*3/uL MPV 11.2 (9.4-12.3) fL Immature Gran % (Auto) 0.5 H (0.0-0.4) % Neut % (Auto) 80.2 H (45-73) % Lymph % (Auto) 12.0 L (20-40) % Fergus % (Auto) 5.7 (2-11) % Eos % (Auto) 1.1 (0-4) % Baso % (Auto) 0.5 (0-2) % Lymph # (Auto) 1.5 (1.2-4.9) X10*3/uL Fergus # (Auto) 0.7 (0.1-1.2) X10*3/uL Eos # (Auto) 0.1 (0.0-0.4) X10*3/uL Baso # (Auto) 0.1 (0.0-0.2) X10*3/uL Abs Immat Gran (auto) 0.06 H (0.00-0.03) X10*3/uL Absolute Neuts (auto) 9.7 H (2.0-8.3) x10*3/uL Absolute Nucleated RBC 0.000 (0.0-0.012) X10*3/uL Nucleated RBC % (auto) 0.0 (0.0-0.2) /100WBC Hold Purple Top SEE NOTE Sodium 145 (135-145) mmol/L Potassium 5.2 H (3.3-5.1) mmol/L Chloride 117 H (96-108) mmol/L Carbon Dioxide 18 L (22-29) mmol/L Anion Gap 15 (12-20) BUN 103 H (9-16) mg/dL Creatinine 8.22 H* (0.5-1.4) mg/dL Estim Creat Clear Calc 6.6 Estimated GFR 5 Random Glucose 97 (60-115) mg/dL Calcium 7.6 L D (8.4-10.2) mg/dL Total Bilirubin 0.3 (0.0-1.0) mg/dL Direct Bilirubin 0.1 (0.0-0.5) mg/dL AST 41 H (5-31) U/L ALT 28 (0-31) U/L Alkaline Phosphatase 70 (39-117) U/L Total Protein 5.9 L (6.5-8.0) g/dL Albumin 3.2 L (3.5-5.0) g/dL Stool Occult Blood POSITIVE (NEGATIVE) Blood Type A Positive Antibody Screen NEGATIVE Crossmatch (AHG) See Detail 09/14/24 Range/Units 11:39 WBC 9.8 (4.8-10.8) X10*3/uL RBC 2.80 L (4.20-5.50) X10*6/uL Hgb 8.4 L (12.0-16.0) g/dl Hct 26.1 L (37.0-47.0) % MCV 93.2 (80.0-98.0) fL MCH 30.0 (27.0-33.0) pg MCHC 32.2 (31.0-35.0) g/dl RDW 14.6 (11.0-16.0) % Plt Count 135 L (160-400) X10*3/uL MPV 10.6 (9.4-12.3) fL Immature Gran % (Auto) 0.4 (0.0-0.4) % Neut % (Auto) 80.2 H (45-73) % Lymph % (Auto) 13.4 L (20-40) % Fergus % (Auto) 4.9 (2-11) % Eos % (Auto) 0.7 (0-4) % Baso % (Auto) 0.4 (0-2) % Lymph # (Auto) 1.3 (1.2-4.9) X10*3/uL Fergus # (Auto) 0.5 (0.1-1.2) X10*3/uL Eos # (Auto) 0.1 (0.0-0.4) X10*3/uL Baso # (Auto) 0.0 (0.0-0.2) X10*3/uL Abs Immat Gran (auto) 0.04 H (0.00-0.03) X10*3/uL Absolute Neuts (auto) 7.8 (2.0-8.3) x10*3/uL Absolute Nucleated RBC 0.000 (0.0-0.012) X10*3/uL Nucleated RBC % (auto) 0.0 (0.0-0.2) /100WBC Hold Purple Top Sodium (135-145) mmol/L Potassium (3.3-5.1) mmol/L Chloride (96-108) mmol/L Carbon Dioxide (22-29) mmol/L Anion Gap (12-20) BUN (9-16) mg/dL Creatinine (0.5-1.4) mg/dL Estim Creat Clear Calc Estimated GFR Random Glucose (60-115) mg/dL Calcium (8.4-10.2) mg/dL Total Bilirubin (0.0-1.0) mg/dL Direct Bilirubin (0.0-0.5) mg/dL AST (5-31) U/L ALT (0-31) U/L Alkaline Phosphatase (39-117) U/L Total Protein (6.5-8.0) g/dL Albumin (3.5-5.0) g/dL Stool Occult Blood (NEGATIVE) Blood Type Antibody Screen Crossmatch (AHG) Independent Historian Clinical information obtained from an independent historian. History obtained from or confirmed by: Other (daughter) External Record Review External record reviewed: Inpatient record Tests considered The following testing was considered but not selected: I consider a CT scan of the abdomen and pelvis however her abdomen is soft nontender Chronic Conditions Patient?s care impacted by: Other (Renal insufficiency) Procedures EJ/Peripheral Line Arm R: Time Out Performed: Yes Skin Cleansed in Sterile Fashion: Yes Size (gauge): 18 IV Secured and Dressing Applied: Yes Patient Tolerated Procedure: well Additional Comments: I was asked by RN to place an IV, patient is a difficult access multiple RN tried, under ultrasound-guided cannulated the right brachial vein with 18 gauge long catheter, good flow good flash Discharge Plan Discharge Clinical Impression: Hematochezia Acute on chronic kidney failure Qualifiers: Acute renal failure type: unspecified Chronic kidney disease stage: unspecified stage Qualified Code(s): N17.9 - Acute kidney failure, unspecified Patient Disposition: Admitted As Inpatient Print Language: Welsh
--- NOTE | 2024-09-14 08:08 | PC.NURSE ---
pt is alert and oriented, skin appropriate for ethnicity, respirations even and unlabored, pt reports having large amount of blood in the toilet bowel today-pt is taking asa, denies abd pain/dizziness at this time, states that she was in the 4 days ago for the same thing and admitted
[2024-09-14 08:22] LABS: MANUAL DIFF FLAG NO
[2024-09-14 08:28] LABS: OBS Int Ctl Valid YES; OBS1 POSITIVE (NEGATIVE)
[2024-09-14 08:30] LABS: Basophils Absolute Auto 0.1 X10*3/uL (0.0-0.2); Basophils Percent Auto 0.5 % (0-2); Eosinophils Absolute Auto 0.1 X10*3/uL (0.0-0.4); Eosinophils Percent Auto 1.1 % (0-4); Hematocrit 28.6 % (37.0-47.0); Hemoglobin 9.3 g/dl (12.0-16.0); Imm Gran Abs Auto 0.06 X10*3/uL (0.00-0.03); Imm Gran Pct Auto 0.5 % (0.0-0.4); Lymphocytes Absolute Auto 1.5 X10*3/uL (1.2-4.9); Mean Corpuscular HGB Conc 32.5 g/dl (31.0-35.0); Mean Corpuscular Hemoglobin 30.4 pg (27.0-33.0); Mean Corpuscular Volume 93.5 fL (80.0-98.0); Mean Platelet Volume 11.2 fL (9.4-12.3); Monocytes Absolute Auto 0.7 X10*3/uL (0.1-1.2); Monocytes Percent Auto 5.7 % (2-11); Neutrophils Absolute Auto 9.7 x10*3/uL (2.0-8.3); Neutrophils Percent Auto 80.2 % (45-73); Platelet Count 149 X10*3/uL (160-400); Red Blood Count 3.06 X10*6/uL (4.20-5.50); Red Cell Distribution Width 14.6 % (11.0-16.0); White Blood Count 12.1 X10*3/uL (4.8-10.8)
[2024-09-14 08:52] LABS: Alanine Aminotransferase 28 U/L (0-31); Albumin Level 3.2 g/dL (3.5-5.0); Alkaline Phosphatase 70 U/L (39-117); Anion Gap 15 (12-20); Aspartate Amino Transferase 41 U/L (5-31); Bilirubin Direct 0.1 mg/dL (0.0-0.5); Bilirubin Total 0.3 mg/dL (0.0-1.0); Blood Urea Nitrogen 103 mg/dL (9-16); Calcium 7.6 mg/dL (8.4-10.2); Carbon Dioxide 18 mmol/L (22-29); Chloride 117 mmol/L (96-108); Creatinine Clr Calc Pharmacy 6.6; Estimated Glomerular Filt Rate 5; Glucose Random 97 mg/dL (60-115); Potassium 5.2 mmol/L (3.3-5.1); Sodium 145 mmol/L (135-145); Total Protein 5.9 g/dL (6.5-8.0)
[2024-09-14] MEDS: 0.9 % Sodium Chloride 1,000 ML 999 ML IVCONT (09:54)
[2024-09-14 11:42] LABS: MANUAL DIFF FLAG NO
--- NOTE | 2024-09-14 11:42 | PC.NURSE ---
pt is stating that she does not want to stay in the hospital that she would like to sign herself out, dr yadav aware
[2024-09-14 11:46] LABS: Basophils Percent Auto 0.4 % (0-2); Eosinophils Absolute Auto 0.1 X10*3/uL (0.0-0.4); Eosinophils Percent Auto 0.7 % (0-4); Hematocrit 26.1 % (37.0-47.0); Hemoglobin 8.4 g/dl (12.0-16.0); Imm Gran Abs Auto 0.04 X10*3/uL (0.00-0.03); Imm Gran Pct Auto 0.4 % (0.0-0.4); Lymphocytes Absolute Auto 1.3 X10*3/uL (1.2-4.9); Lymphocytes Percent Auto 13.4 % (20-40); Mean Corpuscular HGB Conc 32.2 g/dl (31.0-35.0); Mean Corpuscular Volume 93.2 fL (80.0-98.0); Mean Platelet Volume 10.6 fL (9.4-12.3); Monocytes Absolute Auto 0.5 X10*3/uL (0.1-1.2); Monocytes Percent Auto 4.9 % (2-11); Neutrophils Absolute Auto 7.8 x10*3/uL (2.0-8.3); Neutrophils Percent Auto 80.2 % (45-73); Platelet Count 135 X10*3/uL (160-400); Red Cell Distribution Width 14.6 % (11.0-16.0); White Blood Count 9.8 X10*3/uL (4.8-10.8)
[2024-09-14] MEDS: 0.9 % Sodium Chloride 1,000 ML 100 ML IVCONT ×2 (12:16→23:20)
--- NOTE | 2024-09-14 12:28 | P.CNGI_ITS ---
History of Present Illness Data of Consult Service Date: 09/14/24 Requesting physician: Urbano Mendoza Primary Care Provider: Britt De MD HPI Reason for consult: Lower GI bleed 59 year old Nauruan-speaking female seen at [facility] ED on 09/14/2024 with rectal bleeding since early this am. History obtained with the help of her son and [id number]-ney who were at the bedside Pt reports she woke up at 1:00 am today to use the rest room and passed a large amount of BRB with clots She had multiple episodes since then and passed out briefly. Pt called her son and DIL at 5 am and they brought her to the ED She had a small bloody BM at 11 am and none over the past 2 hrs Patient denies any abdominal pain, history of constipation or diarrhea, change in appetite or weight Patient was hospitalized from 09/06 t0 09/11/24 with acute on chronic anemia in the setting of lower GI bleeding and worsening renal failure. She was transfused 4 units of PRBC 09/10/24 EGD AND COLONOSCOPY WERE PERFORMED BY DR. MADRIGAL: Impression: 1. Normal esophagus 2. Normal stomach 3. Normal duodenum 4. Normal colon and terminal ileum mucosa 5. 2 polyps removed 6. Large bleeding internal hemorrhoids Recommendations:?? * Follow-up path results * Bleeding source appears to be internal hemorrhoids * Anusol suppositories * Sitz baths * Consider surgical consultation if pt continues to have significant LGIB. * Repeat colonoscopy for polyp surveillance in 3 years if its an adenoma. Review of Systems 2 Review of Systems: Yes all other systems are reviewed and are negative PMFSH Past Medical History Medical History Anemia in chronic kidney disease (CKD) CKD (chronic kidney disease) stage 5, GFR less than 15 ml/min Anemia CKD (chronic kidney disease) Chronic systolic (congestive) heart failure Cardiomyopathy Essential hypertension Normocytic anemia Family History Family History Father Throat cancer Mother Hypertension Daughter In good health Daughter In good health Sister In good health Family/Other Breast cancer Surgical History Surgical History Hx of colonoscopy History of surgery Status post dilation and curettage History of abdominal surgery History of extraction of renal calculus History of tubal ligation Social History Social History Household Members: None Housing: Apartment Are you a primary home care manager rn to a significant other at home: No Do you presently have visiting nurse or other home services: No Alcohol intake: never Comment: recent syncopal episode with blood loss Patient Tobacco Use Status: Former Tobacco user Tobacco use type: Cigarette Years Smoked: 30 +/- Smoked in Last 30 Days: No e-Cigarette/Vaping Use: Never Used Second Hand Smoke Exposure: No Use of substances other than those prescribed or required for medical reasons: No Have you been hit, kicked, punched, or otherwise hurt by someone within the past year? If so, by whom?: No Do you feel safe in your current relationship?: No Current Relationship Is there a partner from a previous relationship who is making you feel unsafe now?: No Are you made to feel afraid or neglected: No Are you DNR?: No Advance Directives: No Advance Directives Information Provided: No Do you have a plan to hurt others: No Plan Recently lost weight without trying: No Nutrition Risks: No Nutritional Risk Patient : No : No Poor oral hygiene: No service: No Current occupational status: unemployed Cognitive needs: No Hearing needs: No Vision needs: No Meds Allergies Allergy/AdvReac Type Severity Reaction Status Date / Time Penicillins Allergy Intermediate RASH Verified 09/15/24 12:37 Active Medications: Current Medications Sodium Chloride (Ns) 1,000 mls @ 100 mls/hr IVCONT .Q10H ADELA Last Admin: 09/14/24 12:16 Dose: 100 mls/hr Home Medications ?Medication ?Instructions ?Recorded ?Confirmed ?Last Taken ?Type sevelamer HCl 800 mg tablet 800 mg PO TIDWM 09/14/24 09/14/24 09/13/24 History Physical Exam 2 Vital Signs: Vital Signs: Last Vital Signs Temp 97.8 F 09/14/24 08:14 Pulse 68 09/14/24 11:42 Resp 18 09/14/24 11:42 BP 137/83 09/14/24 11:42 Pulse Ox 99 09/14/24 11:42 O2 Del Method Room Air 09/14/24 11:42 BMI result Body Mass Index 23.3 Const: General: cooperative Nutritional Appearance: well nourished O rientation/consciousness: patient oriented x3 Limitations: no limitations HEENT: Head: Yes normal to inspection General nose exam: Normal external nose present Face and sinus: Yes normal facial exam Throat: Yes posterior oropharynx normal Neck: Neck: Yes normal visual inspection Resp: Effort & Inspection: normal respiratory effort Auscultation: clear to auscultation bilaterally Cardio: Jugular venous distension: no JVD Rate: regular rate Rhythm: r egular rhythm GI: Inspection: Yes normal to inspection Palpation (GI): Soft to palpation Auscultation: normal bowel sounds Rectal Exam - Female: other (Positive rectal exam for blood) Skin: General skin exam: no rashes or lesions noted and elasticity normal Neuro: General: patient oriented x3 Results Labs 09/15/24 06:10 09/14/24 08:16 Labs: Short CBC 09/14/24 09/14/24 Range/Units 08:16 11:39 WBC 12.1 H 9.8 (4.8-10.8) X10*3/uL Hgb 9.3 L D 8.4 L (12.0-16.0) g/dl Hct 28.6 L 26.1 L (37.0-47.0) % Plt Count 149 L 135 L (160-400) X10*3/uL BMP 09/14/24 08:16 Sodium 145 Potassium 5.2 H Chloride 117 H Carbon Dioxide 18 L BUN 103 H Creatinine 8.22 H* Calcium 7.6 L D Liver Function 09/14/24 Range/Units 08:16 Total Bilirubin 0.3 (0.0-1.0) mg/dL Direct Bilirubin 0.1 (0.0-0.5) mg/dL AST 41 H (5-31) U/L ALT 28 (0-31) U/L Alkaline Phosphatase 70 (39-117) U/L Albumin 3.2 L (3.5-5.0) g/dL Assessment and Plan (1) Hematochezia: Status: Acute (2) History of colon polyps: Status: Acute Plan 59 year old Nauruan-speaking female seen at [facility] on 09/14/2024 with rectal bleeding since early this am. Pt had a 15 mm sigmoid polyp removed 4 days ago and lower GI bleeding is most likely due to a post polypectomy bleed. RECOMMENDATIONS: 1. Monitor CBC every 8 hrs x 24 hrs 2. Clear liquid diet and GoLYTELY prep today for possible colonoscopy tomorrow If no further bleeding and CBC remains stable overnight, colonoscopy can be canceled. Procedures Date of Service Date of Service: 09/15/24
--- NOTE | 2024-09-14 12:56 | P.HPHOSP_ITS ---
History of Present Illness Date of Service: 09/14/24 Chief Complaint: GIB, acute blood loss anemia 59-year-old female with a PMH significant for?CKD stage 5 not on hemodialysis, HTN, HFrEF (LVEF 40-45% on 11/2023), chronic iron deficiency anemia, and hx of noncompliance with medications or follow up appointments who presents to the ED with blood in the stool. She was in the hospital for similar presentation and and had colonoscopy on 09/10/24 and had 2 polyps removed and large bleeding internal hmorrhoid and advsed Sitz bath and anusol, She comes back today with blood in the stool and hemoglobin has dropped from 11 to 8 since admission. There is concern for post polypectomy bleed. Presently no active bleed Review of Systems 2 Review of Systems: Gen: no fever Resp: no sob, no cough CV: no chest, no LOBATO, no leg edema GI: No n/v, no abd pain, _+blood in stool Neuro: No confusion Yes all other systems are reviewed and are negative [facility] Medical History Anemia in chronic kidney disease (CKD) CKD (chronic kidney disease) stage 5, GFR less than 15 ml/min Anemia CKD (chronic kidney disease) Chronic systolic (congestive) heart failure Cardiomyopathy Essential hypertension Normocytic anemia Family History Father Throat cancer Mother Hypertension Daughter In good health Daughter In good health Sister In good health Family/Other Breast cancer Surgical History Hx of colonoscopy History of surgery Status post dilation and curettage History of abdominal surgery History of extraction of renal calculus History of tubal ligation Social History Household Members: None Housing: Apartment Are you a primary assistant child care teacher to a significant other at home: No Do you presently have visiting nurse or 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 If so, by whom?: No Do you feel safe in your current relationship?: No Current Relationship Is there a partner from a previous relationship who is making you feel unsafe now?: No Are you made to feel afraid or neglected: No Advance Directives: No Advance Directives Information Provided: No Do you have a plan to hurt others: No Plan Recently lost weight without trying: No Nutrition Risks: No Nutritional Risk Patient : No : No Poor oral hygiene: No service: No Current occupational status: unemployed Cognitive needs: No Hearing needs: No Vision needs: No Meds Allergies Allergy/AdvReac Type Severity Reaction Status Date / Time Penicillins Allergy Intermediate RASH Verified 09/14/24 06:46 Active Medications: Current Medications Sodium Chloride (Ns) 1,000 mls @ 100 mls/hr IVCONT .Q10H ADELA Last Admin: 09/14/24 12:16 Dose: 100 mls/hr Home Medications ?Medication ?Instructions ?Recorded ?Confirmed ?Last Taken ?Type sevelamer HCl 800 mg tablet 800 mg PO TIDWM 09/14/24 09/14/24 09/13/24 History Physical Exam 2 Vital Signs and Narrative: Vital Signs: Last Vital Signs Temp 97.8 F 09/14/24 08:14 Pulse 68 09/14/24 11:42 Resp 18 09/14/24 11:42 BP 137/83 09/14/24 11:42 Pulse Ox 99 09/14/24 11:42 O2 Del Method Room Air 09/14/24 11:42 BMI result Body Mass Index 23.3 Const: Other: General: AO X 3, no acute distress Resp: CTA bilateral CVS: S1,S2,RRR GI: +BS, NT, no distention Skin: No rash GI: rectal exam deffered Neuro: motor grossly intact Psych: appropriate affect Results Labs 09/15/24 06:10 09/14/24 08:16 Labs: Assessment and Plan (1) Bleeding hemorrhoids: Status: Acute (2) GI bleed: Status: Acute (3) Anemia: Status: Acute Plan 59-year-old female with a PMH significant for?CKD stage 5 not on hemodialysis, HTN, HFrEF (LVEF 40-45% on 11/2023), chronic iron deficiency anemia, and hx of noncompliance with medications or follow up appointments here with here with recurrent rectal bleed s/p recent colonoscopy with polypectomy Acute gib, acute blood loss anemia s/p recent polypectomy, concern for polypectomy bleed -monitor H/H -transfuse for Hgb < 8 -gi bonsult -liquid diet -colon prep for possible colonoscopy Paroxysmal atrial fibrillation with rapid ventricular response. in sinus. 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
--- NOTE | 2024-09-14 13:53 | PHA.MEDREC ---
Addendum entered by Corrina Dumas RPh 09/14/24 14:05: reviewed by [facility]. Original Note: Pharmacy Consult ? Medication Reconciliation Pharmacy has completed the medication reconciliation. Utilized consumer affairs director services. Spoke to the pt to confirm meds.
[2024-09-14] MEDS: Sodium Bicarbonate 650 MG TABLET 1300 MG PO ×2 (15:38→21:48)
[2024-09-14] MEDS: PEG 3350/Na Sulf,Bicarb,Cl/KCL 4,000 ML SOLN.RECON 4000 ML PO (15:38)
--- NOTE | 2024-09-14 17:43 | PC.NURSE ---
holding the sevelamer carbonate being hold pt is on clear liquid diet
[2024-09-14 18:54] LABS: Hemoglobin 8.3 g/dl (12.0-16.0); Mean Corpuscular HGB Conc 33.2 g/dl (31.0-35.0); Mean Corpuscular Volume 93.3 fL (80.0-98.0); Mean Platelet Volume 11.6 fL (9.4-12.3); PLT CLUMP 1; Platelet Count 121 X10*3/uL (160-400); Red Blood Count 2.68 X10*6/uL (4.20-5.50); Red Cell Distribution Width 14.6 % (11.0-16.0); White Blood Count 8.9 X10*3/uL (4.8-10.8)
--- NOTE | 2024-09-14 19:44 | PC.NURSE ---
pt is having multiple bloody stools at this time, drinking the bowel prep
[2024-09-14] MEDS: Ferrous Sulfate 324 MG TABLET.DR PO (21:49)
[2024-09-14] MEDS: Metoprolol Tartrate 50 MG TABLET PO (21:49)
[2024-09-14] MEDS: Atorvastatin Calcium 80 MG TABLET PO (21:49)
[2024-09-15] VITALS (12 sets, daily range): BP systolic 126–154; BP diastolic 68–83; PULSE 65–75; RESP 16–20; TEMP 36–36.8; O2SAT 97–100
--- NOTE | 2024-09-15 04:19 | PC.NURSE ---
Pt resting in bed NAD respirtions even unlabored. Awaiting bed assignment for admission. Will continue to monitor.
[2024-09-15 06:36] LABS: Hematocrit 24.4 % (37.0-47.0); Hemoglobin 7.7 g/dl (12.0-16.0); Mean Corpuscular HGB Conc 31.6 g/dl (31.0-35.0); Mean Corpuscular Volume 94.9 fL (80.0-98.0); Mean Platelet Volume 10.9 fL (9.4-12.3); Platelet Count 134 X10*3/uL (160-400); Red Blood Count 2.57 X10*6/uL (4.20-5.50); Red Cell Distribution Width 14.6 % (11.0-16.0); White Blood Count 8.6 X10*3/uL (4.8-10.8)
[2024-09-15] MEDS: Sodium Bicarbonate 650 MG TABLET 1300 MG PO ×2 (08:09→17:12)
[2024-09-15] MEDS: Ferrous Sulfate 324 MG TABLET.DR PO (08:10)
[2024-09-15] MEDS: Metoprolol Tartrate 50 MG TABLET PO (08:10)
[2024-09-15] MEDS: amLODIPine Besylate 10 MG TABLET PO (08:10)
[2024-09-15] MEDS: Sevelamer Carbonate Tablet 800 MG TABLET PO ×2 (08:10→17:12)
--- NOTE | 2024-09-15 09:32 | PC.NURSE ---
assumed care of patient at 0700, patient had 18G in right AC that was no longer patent, attempted to place new IV in the left AC #20. ED educator was able to get #22 in left hand. patient has RBC running 100ml/hr, NS infusion paused for blood transfusion- patient difficult stick, VSS. skin noted to be dry and intact with bruising in various stages. patient is alert and oriented, has been using the bedside commode. no blood noted in urine or stool.
--- NOTE | 2024-09-15 11:50 | HO.PM.IMPN ---
Subjective Subjective Date of Service: 09/15/24 Interval History: f/u on gib, acute blood loss anemia she has not have any further bleeding but h/h is down Physical Exam Vital Signs: Vital Signs: Last Vital Signs Temp 97.3 F 09/15/24 10:33 Pulse 65 09/15/24 10:33 Resp 16 09/15/24 10:33 BP 144/72 H 09/15/24 10:33 Pulse Ox 99 09/15/24 10:33 O2 Del Method Room Air 09/15/24 10:33 BMI result Body Mass Index 23.3 Const: Other: General: AO X 3, no acute distress Resp: CTA bilateral CVS: S1,S2,RRR GI: +BS, NT, no distention Skin: No rash Neuro: motor grossly intact Psych: appropriate affect Objective Data Active Medications Acetaminophen (Acetaminophen 325 Mg Tablet) 650 mg PO Q6H PRN PRN Reason: Pain, Mild 1-3,fever,headache Amlodipine Besylate (Amlodipine Besylate 10 Mg Tablet) 10 mg PO DAILY [facility]; Protocol Last Admin: 09/15/24 08:10 Dose: 10 mg Documented By: STARLA Atorvastatin Calcium (Atorvastatin Calcium 80 Mg Tablet) 80 mg PO BEDTIME [facility] Last Admin: 09/14/24 21:49 Dose: 80 mg Documented By: ZURI Calcium Carbonate (Calcium Carbonate 750 Mg Tab.Chew) 750 mg PO Q4H PRN PRN Reason: Heartburn Ferrous Sulfate (Ferrous Sulfate 324 Mg Tablet.Dr) 324 mg PO BID [facility] Last Admin: 09/15/24 08:10 Dose: 324 mg Documented By: STARLA Sodium Chloride (Ns) 1,000 mls @ 100 mls/hr IVCONT .Q10H [facility] Last Admin: 09/15/24 09:39 Dose: Not Given Documented By: STARLA Non-Admin Reason: paused for blood product. Magnesium Hydroxide (Milk Of Magnesia 30 Ml Oral.Susp) 30 ml PO DAILY PRN PRN Reason: Constipation Melatonin (Melatonin 3 Mg Tablet) 6 mg PO BEDTIME PRN PRN Reason: Insomnia Metoprolol Tartrate (Metoprolol Tartrate 50 Mg Tablet) 50 mg PO BID [facility]; Protocol Last Admin: 09/15/24 08:10 Dose: 50 mg Documented By: STARLA Ondansetron HCl (Ondansetron Hcl 4 Mg/2 Ml Vial) 4 mg IVPUSH Q8H PRN PRN Reason: Nausea and Vomiting Sevelamer Carbonate (Sevelamer Carbonate Tablet 800 Mg Tablet) 800 mg PO TIDWM [facility] Last Admin: 09/15/24 11:46 Dose: Not Given Documented By: NICOLE Non-Admin Reason: NPO Sodium Bicarbonate (Sodium Bicarbonate 650 Mg Tablet) 1,300 mg PO TID [facility] Last Admin: 09/15/24 08:09 Dose: 1,300 mg Documented By: STARLA Sodium Chloride (0.9 % Sodium Chloride Flush 3 Ml Syringe) 3 ml IVFLUSH QSHIFT [facility] Last Admin: 09/15/24 07:10 Dose: Not Given Documented By: STARLA Non-Admin Reason: IV Running Labs 09/15/24 06:10 09/14/24 08:16 Labs: Laboratory Results - last 24 hr 09/14/24 09/14/24 09/15/24 08:43 18:38 06:10 MCV 93.3 94.9 MCH 31.0 30.0 MCHC 33.2 31.6 RDW 14.6 14.6 Plt Count 121 L 134 L MPV 11.6 10.9 Absolute Nucleated RBC 0.000 0.000 Nucleated RBC % (auto) 0.0 0.0 Blood Type A Positive Antibody Screen NEGATIVE Crossmatch (AHG) See Detail Assessment and Plan (1) GI bleed: Status: Acute Plan 59-year-old female with a PMH significant for?CKD stage 5 not on hemodialysis, HTN, HFrEF (LVEF 40-45% on 11/2023), chronic iron deficiency anemia, and hx of noncompliance with medications or follow up appointments here with here with recurrent rectal bleed s/p recent colonoscopy with polypectomy Acute gib, acute blood loss anemia s/p recent polypectomy, concern for polypectomy site bleeding -monitor H/H -transfuse 1 unit today, pt had her son sign consent for her in her presence -for colonoscopy today Paroxysmal atrial fibrillation with rapid ventricular response. in sinus. 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
--- NOTE | 2024-09-15 12:57 | PC.NURSE ---
1255- patient transported to Pre-Op via stretcher. Blood transfusion completed prior to leaving floor. Post transfusion vitals obtained and stable. See TAR for details. No complaints of pain. Correct name band in place, name and verified with patient. Patient wearing non-skid socks. NPO since midnight. Patient in hospital attire. No jewelry, dentures, or personal clothing on patient.
[2024-09-15 14:23] LABS: Hematocrit 29.6 % (37.0-47.0); Hemoglobin 9.9 g/dl (12.0-16.0); Mean Corpuscular HGB Conc 33.4 g/dl (31.0-35.0); Mean Corpuscular Hemoglobin 30.8 pg (27.0-33.0); Mean Corpuscular Volume 92.2 fL (80.0-98.0); Mean Platelet Volume 11.4 fL (9.4-12.3); Platelet Count 123 X10*3/uL (160-400); Red Blood Count 3.21 X10*6/uL (4.20-5.50); Red Cell Distribution Width 14.3 % (11.0-16.0); White Blood Count 8.6 X10*3/uL (4.8-10.8)
--- NOTE | 2024-09-15 16:15 | PM.DS ---
DS: Providers Provider Date of Service: 09/15/24 Date of admission: 09/14/24 14:10 Date of discharge: 09/15/24 Primary care physician: Britt De MD Consults: 09/14/24 13:28 Consult to Nephrology Routine Consulting Provider: [facility] Reason for consultation: CKD 5 and worsening Has provider been notified: No DS: Diagnosis Discharge Diagnosis (1) Hematochezia: Status: Acute (2) History of colon polyps: Status: Acute DS: Summary Hospital Course Hospital Course: admission hpi Chief Complaint: GIB, acute blood loss anemia 59-year-old female with a PMH significant for?CKD stage 5 not on hemodialysis, HTN, HFrEF (LVEF 40-45% on 11/2023), chronic iron deficiency anemia, and hx of noncompliance with medications or follow up appointments who presents to the ED with blood in the stool. She was in the hospital for similar presentation and and had colonoscopy on 09/10/24 and had 2 polyps removed and large bleeding internal hmorrhoid and advsed Sitz bath and anusol, She comes back today with blood in the stool and hemoglobin has dropped from 11 to 8 since admission. There is concern for post polypectomy bleed. Presently no active bleed hospital course: The patient was admitted for a gastrointestinal (GI) bleed, thought to be related to a recent polypectomy. Her hemoglobin dropped from 11.8 to 7.7, necessitating the transfusion of 1 unit of RBCs. She has not had any further bleeding. A repeat colonoscopy was considered but was not performed, in part because the patient no longer has active bleeding, and due to her worsening renal failure and refusal of dialysis. The patient is tolerating her diet and will be discharged with instructions to follow up with Nephrology on an outpatient basis. She has been advised to stop taking aspirin. Time Attestation Discharge Coordination Time (in mins): 40 Quality: Safe Use of Opioids Does Pt have an Active Cancer Diagnosis on the Problem List?: No Quality: Stroke Does the patient have a stroke diagnosis?: No Physical Exam Vital Signs: Vital Signs: Last Vital Signs Temp 96.9 F 09/15/24 15:10 Pulse 66 09/15/24 15:10 Resp 20 09/15/24 15:10 BP 144/83 H 09/15/24 15:10 Pulse Ox 99 09/15/24 15:10 O2 Del Method Room Air 09/15/24 15:10 BMI result Body Mass Index 23.3 General: AO X 3, no acute distress Resp: CTA bilateral CVS: S1,S2,RRR GI: +BS, NT, no distention Skin: No rash Neuro: motor grossly intact Psych: appropriate affect Const: Other: see progress millie DS: Data Data Completed and Pending Completed studies during hospitalization [Text1]: Procedures Excision of Duodenum, Via Natural or Artificial Opening Endoscopic, Diagnostic (11/09/23) Excision of Esophagogastric Junction, Via Natural or Artificial Opening Endoscopic, Diagnostic (11/09/23) Inspection of Lower Intestinal Tract, Via Natural or Artificial Opening Endoscopic (11/09/23) Transfusion of Nonautologous Red Blood Cells into Peripheral Vein, Percutaneous Approach (11/09/23) Labs on day of discharge: Laboratory Results - last 24 hr 09/14/24 09/14/24 09/15/24 08:43 18:38 06:10 WBC 8.9 8.6 RBC 2.68 L 2.57 L Hgb 8.3 L 7.7 L Hct 25.0 L 24.4 L MCV 93.3 94.9 MCH 31.0 30.0 MCHC 33.2 31.6 RDW 14.6 14.6 Plt Count 121 L 134 L MPV 11.6 10.9 Absolute Nucleated RBC 0.000 0.000 Nucleated RBC % (auto) 0.0 0.0 Blood Type A Positive Antibody Screen NEGATIVE Crossmatch (AHG) See Detail 09/15/24 14:01 WBC 8.6 RBC 3.21 L D Hgb 9.9 L D Hct 29.6 L D MCV 92.2 MCH 30.8 MCHC 33.4 RDW 14.3 Plt Count 123 L MPV 11.4 Absolute Nucleated RBC 0.000 Nucleated RBC % (auto) 0.0 Blood Type Antibody Screen Crossmatch (AHG) Discharge Plan Discharge Anticipated Discharge Date/Time: 09/15/24 16:11 Patient Disposition: Home, Self-Care Discharge Diagnosis: gi bleeding, anemia Referrals: Britt Chavez MD [Primary Care Provider] - 1 Week Von Jerez MD [Physician] - 1 Week Discharge Medications: Continued (DME) blood pressure monitor Kit See Rx Instructions .Route Qty: 1 0RF Rx Instructions: As directed sodium bicarbonate 650 mg tablet 1,300 mg PO TID Qty: 180 2RF ferrous sulfate 325 mg (65 mg iron) tablet,delayed release (DR/EC) 325 mg PO BID Qty: 180 1RF metoprolol tartrate 50 mg Tablet 50 mg PO BID 90 Days Qty: 180 0RF Protocol: Hold for SBP/HR < HOLD for SBP < : 90 HOLD for HR < : 60 amlodipine [Norvasc] 10 mg tablet 10 mg PO DAILY 90 Days Qty: 90 0RF atorvastatin 80 mg tablet 80 mg PO BEDTIME 90 Days Qty: 90 0RF (DME) sitz bath Kit See Rx Instructions .Route Qty: 1 0RF Rx Instructions: As directed (DME) sitz bath Kit See Rx Instructions .Route Qty: 1 0RF Rx Instructions: As directed sevelamer HCl 800 mg tablet 800 mg PO TIDWM Rx Instructions: must administer with a meal/food (DME) bed rail See Rx Instructions .Route .MEDSUPPLY Qty: 1 0RF Rx Instructions: As directed (DME) hand held shower See Rx Instructions .Route .MEDSUPPLY Qty: 1 0RF Rx Instructions: As directed (DME) Grab bar Misc See Rx Instructions .Route Qty: 1 0RF Rx Instructions: As directed (DME) pill box twice daily See Rx Instructions .Route .MEDSUPPLY Qty: 1 0RF Rx Instructions: As directed (DME) Shower Chair Misc See Rx Instructions .Route Qty: 1 0RF Rx Instructions: with back Discontinued aspirin 81 mg tablet,delayed release (DR/EC) 81 mg PO DAILY 90 Days Qty: 90 0RF Discharge Orders: Discharge Order (Routine); Ordered 09/15/24 Ordered By: Sravan Morrow Diet: Advance to usual diet Activity on Discharge: As tolerated Stand Alone Forms: Patient Portal Discharge page Print Language: Welsh Care Plan Goals: recovery from anemia and gi bleedin Health Concerns: anemia gi bleeding end stage kidney disease, nearing dialysis Plan of Treatment: stop taking aspirin for now follow up with your doctor in a week if you notice any blood in your stool, [facility] follow up with the kidney doctor in 1 to 2 weeks Assessment: see above
== END 2024-09-15 18:55 | disposition home or self-care (01) | DRG 378 ==
LOC: HO.ED 09:49 → HO.EDOVER 14:17 → HO.S3 09-15 09:08
PROVIDERS: Internal Medicine Gastroenterology; Admitting Provider Internal Medicine; Emergency Provider Emergency Medicine; PCP Internal Medicine; Visit Provider Internal Medicine
DX: K92.1 Melena (principal); D62 Acute posthemorrhagic anemia; I13.2 Hypertensive heart and chronic kidney disease with heart failure and with stage 5 chronic kidney disease, or end stage renal disease; N18.5 Chronic kidney disease, stage 5; E87.20 Acidosis, unspecified; I50.22 Chronic systolic (congestive) heart failure; I48.0 Paroxysmal atrial fibrillation; Z86.0100 Personal history of colon polyps, unspecified; Z91.148 Patient's other noncompliance with medication regimen for other reason; Z79.899 Other long term (current) drug therapy
CPT/HCPCS: 36415; 80048; 80076; 82272; 85025; 85027; 86850; 86900; 86901; 86920; 86922; 99221; 99285; P9016

== ENCOUNTER → 2024-09-14 14:10 | Outpatient (BNV) | payer OTHER, SELFPAY | PROVIDERS: Admitting Provider Internal Medicine; Emergency Provider Emergency Medicine; PCP Internal Medicine; Visit Provider Internal Medicine | DX: K64.9 Unspecified hemorrhoids (principal); K92.2 Gastrointestinal hemorrhage, unspecified; D64.9 Anemia, unspecified | CPT/HCPCS: 99223 ==

== ENCOUNTER → 2024-09-14 14:10 | Outpatient (BNV) | payer OTHER, SELFPAY | PROVIDERS: Admitting Provider Internal Medicine; Emergency Provider Emergency Medicine; PCP Internal Medicine; Visit Provider Internal Medicine Gastroenterology | DX: K92.1 Melena (principal); Z86.0100 Personal history of colon polyps, unspecified | CPT/HCPCS: 99499 ==

== ENCOUNTER 2024-10-02 09:22 | Outpatient (AMB) | payer OTHER, SELFPAY ==
[2024-10-02 09:29] VITALS: BP 102/62; PULSE 69; BMI 29.8
--- NOTE | 2024-10-02 09:29 | A.OFFVIS_ITS ---
Vital Signs 10/02/24 09:29 Height 5 ft 5 in Weight 179 lb 0.246 oz BMI 29.8 BP 102/62 Blood Pressure Location Rt brachial Position Sitting Pulse 69 Pulse Source Pulse Oximeter Intake Visit Reasons: f/u per HS Panel Wirer Required: No Brick Washer: Brick Washer Present Allergies Penicillins Allergy (Intermediate, Verified 10/02/24 09:31) RASH Medication List - Last Reconciled 10/02/24 by Georgina Reina DIGITAL ACCOUNT COORDINATOR-C amlodipine (Norvasc) 10 mg PO DAILY 90 days atorvastatin 80 mg PO BEDTIME 90 days [bed rail As directed] blood pressure monitor As directed ferrous sulfate 325 mg PO BID Grab bar As directed [hand held shower As directed] metoprolol tartrate 50 mg See Protocol PO BID 90 days [pill box twice daily As directed] sevelamer HCl 800 mg PO TIDWM Shower Chair with back sitz bath As directed sitz bath As directed sodium bicarbonate 1,300 mg (2 x 650 mg) PO TID HPI HPI f/u per HS: Details: Anh is a 58-year-old female past medical history of hypertension, chronic kidney disease, mild obesity, cardiomyopathy, who was recently admitted to [facility] with GI bleeding. She underwent colonoscopy and was found to have bleeding hemorrhoid. She did require a unit of packed cells. An echocardiogram had been done showing EF 50%. She now presents for cardiology follow-up. Her last prior visit to our office was 07/05/2023. Today she reports that she is still passing some blood rectally when she has a bowel movement. This is not occurring daily. She has an appointment with GI in the near future. She has no abdominal discomfort, nausea or vomiting. No chest discomfort at rest or with activity. No shortness of breath, PND, orthopnea or edema. No lightheadedness, presyncope, syncope. Taking all meds as directed. Daughter is present and assisting with Lao translation. Patient ambulates with cane and does only light activities at home. ON LICENSE OF [facility] Medical History History of colon polyps Secondary hyperparathyroidism (of renal origin) Anemia in chronic kidney disease (CKD) CKD (chronic kidney disease) stage 5, GFR less than 15 ml/min Anemia CKD (chronic kidney disease) Chronic systolic (congestive) heart failure Cardiomyopathy Essential hypertension Normocytic anemia Surgical History Hx of colonoscopy History of surgery Status post dilation and curettage History of abdominal surgery History of extraction of renal calculus History of tubal ligation Family History Father Throat cancer Mother Hypertension Daughter In good health Daughter In good health Sister In good health Family/Other Breast cancer Social History Household Members: None Housing: Apartment Are you a primary animal care attendant to a significant other at home: No Do you presently have visiting nurse or other home services: No Alcohol intake: never Comment: recent syncopal episode with blood loss Patient Tobacco Use Status: Former Tobacco user Tobacco use type: Cigarette Years Smoked: 30 +/- e-Cigarette/Vaping Use: Never Used Second Hand Smoke Exposure: No service: No Current occupational status: unemployed Cognitive needs: No Hearing needs: No Vision needs: No Review of Systems Const All systems reviewed & are unremarkable except as noted in HPI and below ENT Denies dizziness Card Denies chest pain, Denies chest pain at rest, Denies chest pain with activity, Denies rapid heart rate, Denies pedal edema, Denies edema, Denies leg edema, Denies lightheadedness, Denies palpitations, Denies dyspnea, Denies dyspnea on exertion and Denies orthopnea Resp Denies cough, Denies dyspnea and Denies dyspnea on exertion GI Reports hematochezia (small amounts) and Denies change in stool character Musc Details: back pains Denies abnormal gait, Denies limited range of motion, Denies muscle cramps, Denies muscle weakness, Denies numbness, Denies radiating pain into limb, Denies stiffness and Denies tingling Neuro Denies abnormal gait, Denies dizziness, Denies numbness and Denies tingling Endo Denies palpitations Physical Exam Vital Signs: Last Vital Signs Pulse 69 10/02/24 09:29 BP 102/62 10/02/24 09:29 BMI result Body Mass Index 29.8 Const General: cooperative, healthy appearing, comfortable and no acute distress Orientation/consciousness: patient oriented x3 Neck Neck: Yes normal visual inspection Resp Effort & Inspection: normal respiratory effort Auscultation: clear to auscultation bilaterally, no crackles, no rales, no rhonchi and no wheezes Cardio Jugular venous distension: no JVD Rate: regular rate Rhythm: regular rhythm Heart sounds: S1 normal heart sound present, S2 normal heart sound present, no murmurs and no rubs Neuro General: patient oriented x3 Extrem General: Yes normal to inspection, No no pedal edema and No calf tenderness Psych Appearance: grossly normal Mental Status: mental status grossly normal Speech and movement: Normal speech and movement present Assessment & Plan Assessment & Plan (1) Cardiomyopathy: Code(s): I42.9 - Cardiomyopathy, unspecified Category: Medical Plan: Known history of cardiomyopathy with prior echos showing EF as low as 30-35%, 04/2019. Echo 12/14/2022 shows EF 40-45%. She has stage 5 chronic kidney disease and cardiac catheterization has not been performed on her. On last visit a nuclear stress test was ordered however not completed. Her last visit to the office was 07/05/2023. She was recently inpatient for GI bleeding did piña ve an episode of atrial fibrillation and elevated troponins. An echocardiogram was done showing EF 50%, basal inferior hypokinesis, small effusion over the left ventricle. She is on metoprolol for neurohormonal modulation. Not on Corbin or Arb due to chronic kidney disease. No clinical signs of heart failure on examination. Signs and symptoms of heart failure reviewed with her. Will review with her primary auger mill operator about the timing of a pharmacological nuclear stress test. She is nearing end-stage renal disease and may be starting on dialysis in the near future. She currently has no anginal sounding symptoms. Continue current meds without change. Cardiology follow-up in 3 months, sooner if needed (2) NSTEMI (non-ST elevated myocardial infarction): Code(s): I21.4 - Non-ST elevation (NSTEMI) myocardial infarction Category: Medical Plan: NSTEMI during recent hospitalization in the setting of significant anemia with GI bleed. Troponin jayshree to 455. Echocardiogram as above. Invasive cardiac testing avoided due to advanced CKD, nearing end-stage renal disease. No anginal sounding symptoms today. Will plan for a nuclear stress test when medically appropriate. Most recent labs are showing potassium 5.2, creatinine 8.22. She is not on aspirin due to advanced kidney disease. She is on atorvastatin and metoprolol. (3) Atrial fibrillation with rapid ventricular response: Code(s): I48.91 - Unspecified atrial fibrillation Category: Medical Plan: Episode of AFib RVR during recent hospitalization. She was treated with rate slowing agents converted to sinus rhythm. She was not put put on anticoagulation due to GI bleed. Chads Vasc score of 1. She is not noticing any heart palpitations since that time. Today she reports that she still has some red blood with her stool. She does have an upcoming GI follow-up. Will check a CBC today to ensure she does not have significant anemia. Will check a Holter monitor to reassess for PAF. (4) Essential hypertension: Code(s): I10 - Essential (primary) hypertension Category: Medical Plan: On low side today, asymptomatic. Continues on Metoprolol and amlodipine. No m ed changes made (5) CKD (chronic kidney disease) stage 5, GFR less than 15 ml/min: Code(s): N18.5 - Chronic kidney disease, stage 5 Category: Medical Plan: Last creatinine elevated at 5.59. Recent visit with PCP which states she is not following with Nephrology. She was referred to Nephrology on 06/19/[address] Bolanos (6) Acute on chronic kidney failure: Code(s): N17.9 - Acute kidney failure, unspecified; N18.9 - Chronic kidney disease, unspecified Category: Medical Qualifiers: Acute renal failure type: unspecified Chronic kidney disease stage: unspecified stage Qualified Code(s): N17.9 - Acute kidney failure, unspecified; N18.9 - Chronic kidney disease, unspecified Plan: Nearing end-stage renal disease. Follows with Nephrology. Plan Time spent on chart review, documentation, interview and assessment Orders: Orders ECG 3 day holter monitor Today I48.91 - Unspecified atrial fibrillation Coding Level of Care Code Est Pt Level 4 (12949) Complex EM visit Add On G2211 Diagnoses Cardiomyopathy I42.9 NSTEMI (non-ST elevated myocardial infarction) I21.4 Atrial fibrillation with rapid ventricular response I48.91 Essential hypertension I10 CKD (chronic kidney disease) stage 5, GFR less than 15 ml/min N18.5 Acute on chronic kidney failure N17.9; N18.9 Acute renal failure type: unspecified Chronic kidney disease stage: unspecified stage Time Spent (min) 32
== END 2024-10-02 10:10 | disposition home or self-care (01) ==
PROVIDERS: PCP Internal Medicine; Visit Provider Nurse Practitioner Family
DX: I42.9 Cardiomyopathy, unspecified (principal); I21.4 Non-ST elevation (NSTEMI) myocardial infarction; I48.91 Unspecified atrial fibrillation; I12.9 Hypertensive chronic kidney disease with stage 1 through stage 4 chronic kidney disease, or unspecified chronic kidney disease; N18.5 Chronic kidney disease, stage 5; N17.9 Acute kidney failure, unspecified; N18.9 Chronic kidney disease, unspecified
CPT/HCPCS: 99214; G2211

== ENCOUNTER → 2024-10-02 09:22 | Outpatient (BNVA) | payer OTHER, SELFPAY | PROVIDERS: PCP Internal Medicine; Visit Provider Nurse Practitioner Family | DX: I12.0 Hypertensive chronic kidney disease with stage 5 chronic kidney disease or end stage renal disease (principal); N18.5 Chronic kidney disease, stage 5; I42.9 Cardiomyopathy, unspecified; E66.9 Obesity, unspecified; I21.4 Non-ST elevation (NSTEMI) myocardial infarction; I48.91 Unspecified atrial fibrillation; N17.9 Acute kidney failure, unspecified; Z87.891 Personal history of nicotine dependence; Z68.29 Body mass index [BMI] 29.0-29.9, adult | CPT/HCPCS: 99212 ==

== ENCOUNTER → 2024-10-10 09:22 | Outpatient (REF) ==
[2024-10-10 09:53] LABS: MANUAL DIFF FLAG NO
[2024-10-10 10:41] LABS: Basophils Absolute Auto 0.1 X10*3/uL (0.0-0.2); Basophils Percent Auto 0.7 % (0-2); Eosinophils Absolute Auto 0.2 X10*3/uL (0.0-0.4); Eosinophils Percent Auto 3.4 % (0-4); Hematocrit 26.7 % (37.0-47.0); Hemoglobin 8.7 g/dl (12.0-16.0); Imm Gran Abs Auto 0.04 X10*3/uL (0.00-0.03); Imm Gran Pct Auto 0.6 % (0.0-0.4); Lymphocytes Absolute Auto 1.4 X10*3/uL (1.2-4.9); Lymphocytes Percent Auto 19.8 % (20-40); Mean Corpuscular HGB Conc 32.6 g/dl (31.0-35.0); Mean Corpuscular Volume 92.1 fL (80.0-98.0); Mean Platelet Volume 11.5 fL (9.4-12.3); Monocytes Absolute Auto 0.5 X10*3/uL (0.1-1.2); Monocytes Percent Auto 6.6 % (2-11); Neutrophils Absolute Auto 4.7 x10*3/uL (2.0-8.3); Neutrophils Percent Auto 68.9 % (45-73); Platelet Count 157 X10*3/uL (160-400); Red Cell Distribution Width 13.8 % (11.0-16.0); White Blood Count 6.8 X10*3/uL (4.8-10.8)
== END ==
LOC: HO.CARD 09:22
PROVIDERS: Nurse Practitioner Family
DX: I48.91 Unspecified atrial fibrillation (principal); N17.9 Acute kidney failure, unspecified; N18.9 Chronic kidney disease, unspecified
CPT/HCPCS: 36415; 85025; 93242

== ENCOUNTER → 2024-10-10 09:24 | Outpatient (BNV) | payer OTHER, SELFPAY | PROVIDERS: PCP Internal Medicine; Referring Provider Internal Medicine Nephrology; Visit Provider Internal Medicine | DX: I49.3 Ventricular premature depolarization (principal) | CPT/HCPCS: 93244 ==

== ENCOUNTER 2024-10-10 14:41 | Emergency (ER) | payer OTHER, SELFPAY ==
[2024-10-10 15:16] VITALS: BP 144/77; PULSE 71; RESP 19; TEMP 36.6; O2SAT 100; BMI 29.8
--- NOTE | 2024-10-10 15:20 | ED.RECABL ---
HPI - Recheck/Abnormal Lab/Rx General Chief Complaint: General Medical Stated Complaint: Blood Transfusion Time Seen by Provider: 10/10/24 15:21 Source: patient Limitations: language barrier History of Present Illness ED Provider: Marylin Nava PA-C HPI narrative: 59 y/o F with hx of hypertension, hyperlipidemia, hemorrhoids, NSTEMI, AFib not anticoagulated, prior GI bleed, CKD, chronic anemia, on iron supplementation, asthma, who presents with abnormal labs. Patient states she was contacted by ?someone?, she is not sure who. She was advised to come to the emergency department for blood transfusion. Patient was seen by primary care for routine lab studies, she was told her blood counts were very low. Patient denies active bloody bowel movements or melena. She states when she wipes her bottom with the toilet paper she has a scant amount of bleeding; again she has hemorrhoids. Patient denies abdominal pain, chest pain, shortness of breath, dizziness or nausea vomiting. Related Data Home Medications ?Medication ?Instructions ?Recorded ?Confirmed sevelamer HCl 800 mg tablet 800 mg PO TIDWM 09/14/24 10/02/24 Previous Rx's ?Medication ?Instructions ?Recorded blood pressure monitor #1 ea 11/10/23 sitz bath #1 ea 11/13/23 Grab bar #1 ea 11/22/23 Shower Chair #1 ea 11/22/23 bed rail #1 ea 11/22/23 hand held shower #1 ea 11/22/23 pill box twice daily #1 ea 11/22/23 ferrous sulfate 325 mg (65 mg 325 mg PO BID #180 tabs 07/04/24 iron) tablet,delayed release amlodipine 10 mg tablet (Norvasc) 10 mg PO DAILY 90 days #90 tabs 09/11/24 atorvastatin 80 mg tablet 80 mg PO BEDTIME 90 days #90 tabs 09/11/24 metoprolol tartrate 50 mg tablet 50 mg PO BID 90 days #180 tabs 09/11/24 sitz bath #1 ea 09/11/24 sodium bicarbonate 650 mg tablet 1,300 mg (2 x 650 mg) PO TID #540 09/30/24 tabs Allergies Allergy/AdvReac Type Severity Reaction Status Date / Time Penicillins Allergy Intermediate RASH Verified 10/10/24 15:20 Review of Systems Review of Systems: Yes all other systems are reviewed and are negative Constitutional: Constitutional: Denies fatigue, Denies fever(s) and Denies headache(s) ENT: Denies dizziness and Denies headache(s) Cardiovascular: Cardiovascular: Denies chest pain Gastrointestinal: Gastrointestinal: Denies abdominal pain, Denies melena, Denies hematochezia, Denies diarrhea, Denies nausea and Denies vomiting Neurologic: Denies dizziness and Denies headache(s) Endocrine: Endocrine: Denies fatigue PMFSH Past Medical History Attestation statement: The following information was validated with the patient. Medical History History of colon polyps Secondary hyperparathyroidism (of renal origin) Anemia in chronic kidney disease (CKD) CKD (chronic kidney disease) stage 5, GFR less than 15 ml/min Anemia CKD (chronic kidney disease) Chronic systolic (congestive) heart failure Cardiomyopathy Essential hypertension Normocytic anemia Surgical History Hx of colonoscopy History of surgery Status post dilation and curettage History of abdominal surgery History of extraction of renal calculus History of tubal ligation Family History Family History Father Throat cancer Mother Hypertension Daughter In good health Daughter In good health Sister In good health Family/Other Breast cancer Social History Social History Household Members: None Housing: Apartment Are you a primary intensive care specialist to a significant other at home: No Do you presently have visiting nurse or other home services: No Alcohol intake: never Comment: recent syncopal episode with blood loss Patient Tobacco Use Status: Former Tobacco user Tobacco use type: Cigarette Years Smoked: 30 +/- e-Cigarette/Vaping Use: Never Used Second Hand Smoke Exposure: No Advance Directives: No Advance Directives Information Provided: No Do you have a plan to hurt others: No Plan service: No Current occupational status: unemployed Cognitive needs: No Hearing needs: No Vision needs: No Physical Exam Vital Signs: Vital Signs: Last Vital Signs Temp 98 F 10/10/24 15:16 Pulse 71 10/10/24 15:16 Resp 19 10/10/24 15:16 BP 144/77 H 10/10/24 15:16 Pulse Ox 100 10/10/24 15:16 O2 Del Method Room Air 10/10/24 15:16 BMI result Body Mass Index 29.8 Const: Other: Alert well-appearing Orientation/consciousness: patient oriented x3 Resp: Effort & Inspection: normal respiratory effort Cardio: Other: Normal peripheral perfusion Skin: Other: Warm dry no rash Neuro: General: patient oriented x3, no focal motor deficits and CN's II-XI intact bilaterally Psych: Other: Cooperative Medical Decision Making Medical Decision Making MDM Narrative: 59 y/o F with hx of hypertension, hyperlipidemia, hemorrhoids, NSTEMI, AFib not anticoagulated, prior GI bleed, CKD, chronic anemia, on iron supplementation, asthma, who presents with abnormal labs. Patient states she was contacted by ?someone?, she is not sure who. She was advised to come to the emergency department for blood transfusion. Patient was seen by primary care for routine lab studies, she was told her blood counts were very low. Patient denies active bloody bowel movements or melena. She states when she wipes her bottom with the toilet paper she has a scant amount of bleeding; again she has hemorrhoids. Patient denies abdominal pain, chest pain, shortness of breath, dizziness or nausea vomiting. Problem: Vascular disease, prior GI bleed, chronic anemia, chronic kidney disease History: Per patient I have considered the following differential diagnoses: Lower GI bleed, symptomatic anemia Plan: Patient was sent here, she is not sure who called her, I can see her labs that were drawn today, there is a slight drop in her H and H, she ranges between 11 0.8 and 8.3, the lowest being 7.7. She has fluctuating throughout this month she has had multiple lab draws. She has no active bleeding. She is also asymptomatic. She does not meet criteria for transfusion. I am suggesting that the patient have repeat labs Sunday and follow up with primary care. She is in agreement with the plan. I have independently reviewed the following tests: Labs: No leukocytosis, H&H are 8.7 and 26.7, these are labs from today no chemistry obtained Discharge Plan Discharge Clinical Impression: Anemia, chronic disease Patient Disposition: Home, Self-Care Instructions: Anemia (ED) Additional Instructions: Your blood counts are stable for you. You do not meet criteria for transfusion. You need to follow up with primary care, call today to make an appointment, it would make sense for you to have repeat blood counts drawn on Sunday. Return precautions for onset of large volume bloody bowel movements, onset of dizziness or shortness of breath, fatigue. Prescriptions: No Action (DME) blood pressure monitor Kit See Rx Instructions .Route Qty: 1 0RF Rx Instructions: As directed ferrous sulfate 325 mg (65 mg iron) tablet,delayed release (DR/EC) 325 mg PO BID Qty: 180 1RF sodium bicarbonate 650 mg tablet 1,300 mg PO TID Qty: 540 0RF metoprolol tartrate 50 mg Tablet 50 mg PO BID 90 Days Qty: 180 0RF Protocol: Hold for SBP/HR < HOLD for SBP < : 90 HOLD for HR < : 60 amlodipine [Norvasc] 10 mg tablet 10 mg PO DAILY 90 Days Qty: 90 0RF atorvastatin 80 mg tablet 80 mg PO BEDTIME 90 Days Qty: 90 0RF (DME) sitz bath Kit See Rx Instructions .Route Qty: 1 0RF Rx Instructions: As directed ([facility] [place]) sitz bath Kit See Rx Instructions .Route Qty: 1 0RF Rx Instructions: As directed sevelamer HCl 800 mg tablet 800 mg PO TIDWM Rx Instructions: must administer with a meal/food (DME) bed rail See Rx Instructions .Route .MEDSUPPLY Qty: 1 0RF Rx Instructions: As directed (DME) hand held shower See Rx Instructions .Route .MEDSUPPLY Qty: 1 0RF Rx Instructions: As directed (DME) Grab bar Misc See Rx Instructions .Route Qty: 1 0RF Rx Instructions: As directed ([facility] [place]) pill box twice daily See Rx Instructions .Route .MEDSUPPLY Qty: 1 0RF Rx Instructions: As directed ([facility] [place]) Shower Chair Misc See Rx Instructions .Route Qty: 1 0RF Rx Instructions: with back Print Language: Grenadian
--- OUTSIDE RECORDS SUMMARY | 2024-10-10 15:31 | XMS_ITS | Clinical Summary ---
Author Organization [facility] Address [address] [place] [address] Care Team Providers Care Division Operations Specialist Name Role Phone Emanuel Scruggs Primary Care Provider [phone] Allergies Active Allergy Reactions Criticality Noted Date Comments Penicillins Itching,Rash Medications ferrous sulfate 325 mg (65 mg iron) tablet Active SODIUM BICARBONATE ORAL Act mike carvediloL (COREG) 6.25 mg tablet SMARTSI Tablet(s) By Mouth Twice Daily 06/23/2024 Active sevelamer HCL (RENAGEL) 800 mg tablet SMARTSI Tablet(s) By Mouth 3 Times Daily 07/04/2024 Active sodium bicarbonate 650 mg tablet SMARTSI Tablet(s) By Mouth 3 Times Daily 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 Incisional hernia 09/13/2016 Essential hypertension 09/13/2016 Asthma 09/13/2016 Encounters Date Type Department Care Team Description 10/08/2024 Telephone [facility] Transplant Department [address] [place] [address] Kimber Fallon RN 10/01/2024 Orders Only [facility] Transplant Department [address] [place] [address] Tito Patricio MD Renovascular hypertension (Primary Dx) 09/23/2024 Telephone [facility] Transplant Department [address] [place] [address] Kimber Fallon RN 09/19/2024 Telephone [facility] Transplant Department [address] [place] [phone] Kimber Fallon, LEROY 09/01/2024 2:35 PM EST Lab [facility] [place] [facility] Draw Site [address] [place] [address] Pre-transplant evaluation for kidney transplant; Stage 4 chronic kidney disease (HCC) 09/01/2024 1:45 PM EST Social Work [facility] Renal Transplant [address] [place] [address] Thomas Freeman 09/01/2024 1:00 PM EST Office Visit [facility] Renal Transplant [address] [place] [phone] Devanet Juarez MD Heher, Eliot C, MD Pre-transplant evaluation for kidney transplant (Primary Dx); Chronic kidney disease, stage V (HCC) 09/01/2024 11:45 AM EST Evaluation [facility] Renal Transplant [address] [place] [phone] Kimber Fallon RN Pre-transplant evaluation for kidney transplant (Primary Dx) 09/01/2024 11:15 AM EST Office Visit [facility] Renal Transplant [address] [place] [phone] Karen Madrigal RN Pre-transplant evaluation for kidney transplant (Primary Dx) 09/01/2024 Orders Only [facility] Transplant Department [address] [place] [phone] Kimber Fallon RN Pre-transplant evaluation for kidney transplant (Primary Dx); Stage 4 chronic kidney disease (HCC) 08/28/2024 Telephone [facility] Transplant Department [address] [place] [id number] Kimber Fallon RN from Last 3 Months Family History Medical History Relation Name Comments Other Mother Family history of FH: coronary artery disease Relation Name Status Comments Mother Social History Tobacco Use Types Packs/Day Years Used Date Smoking Tobacco: Former Smokeless Tobacco: Never Tobacco Cessation:Counseling Given: Not Answered Comments:: Comments Unknown Sex and Gender Information Value Date Recorded Sex Assigned at Not on file Legal Sex Female 7:19 PM EDT Gender Identity Not on file Sexual Orientation Not on file Last Filed Vital Signs Vital Sign Reading Time Taken Comments Blood Pressure 119/81 09/01/2024 10:57 AM EST Pulse 95 09/01/2024 10:57 AM EST Temperature 36.1 ??C (97 ??F) 09/01/2024 10:57 AM EST Respiratory Rate 18 09/01/2024 10:57 AM EST Oxygen Saturation 95% 09/01/2024 10:57 AM EST Inhaled Oxygen Concentration - - Weight 78.5 kg (173 lb 1 oz) 09/01/2024 10:57 AM EST Height 165.1 cm (5' 5 ) 09/01/2024 10:57 AM EST Body Mass Index 28.8 09/01/2024 10:57 AM EST Plan of Treatment Health Maintenance Due Date Last Done Comments 25 Hydroxy / Vitamin D 1965 Basic Metabolic Panel 1965 CKD: Referral to Nutrition 1965 Cervical Cancer Screening 1965 Cologuard 1965 Colon Cancer Screening 1965 Colonoscopy 1965 FOBT / Fit Test 1965 HPV and Pap Smear 1965 Pap Smear 1965 Sigmoidoscopy 1965 Pneumococcal Vaccine: Pediat wiliam (0-5 Years) and At-Risk Patients (6-64 Years) (1 of 2 - PCV) 1971 Urine Microalbumin 1975 Hepatitis B Vaccines (1 of 3 - 19+ 3-dose series) 02/1984 DTaP,Tdap,and Td Vaccines (1 - Tdap) [address] Lung Cancer Screening (Baseline) 2015 Zoster Vaccines (1 of 2) 2015 COVID-19 Vaccine (1 - season) 2024 Influenza Vaccine (#1) 2024 Alcohol/Substance Use Screening 09/03/2024 Depression Screening and Follow-Up 09/03/2024 Social Drivers of Health Annual Screening 09/03/2024 Hemoglobin 09/01/2025 09/01/2024 PTH 09/01/2025 09/01/2024 Phosphorus 09/01/2025 09/01/2024 RSV Vaccine (60+ years old a nd patients) (1 - 1-dose 75+ series) 2040 CKD: Referral to Nephrology Completed 09/01/2024 HIV Screening Completed 09/01/2024 Hepatitis C Screening Completed 09/01/2024 Procedures * Due to [place] state law, this organization might not be sharing negative HIV tests. Procedure Name Priority Date/Time Associated Diagnosis Comments ABO/RH BLOOD TYPE Routine 09/01/2024 2:4 6 PM EST Pre-transplant evaluation for kidney transplant Stage 4 chronic kidney disease (HCC) ALBUMIN Routine 09/01/2024 2:46 PM EST Pre-transplant evaluation for kidney transplant Stage 4 chronic kidney disease (HCC) ALT Routine 09/01/2024 2:46 PM EST Pre-transplant evaluation for kidney transplant Stage 4 chronic kidney disease (HCC) AST Routine 09/01/2024 2:46 PM EST Pre-transplant evaluation for kidney transplant Stage 4 chronic kidney disease (HCC) BILIRUBIN, DIRECT Routine 09/01/2024 2:4 6 PM EST Pre-transplant evaluation for kidney transplant Stage 4 chronic kidney disease (HCC) BILIRUBIN, TOTAL Routine 09/01/2024 2:46 PM EST Pre-transplant evaluation for kidney transplant Stage 4 chronic kidney disease (HCC) BUN Routine 09/01/2024 2:46 PM EST Pre-transplant evaluation for kidney transplant Stage 4 chronic kidney disease (HCC) CALCIUM Routine 09/01/2024 2:46 PM EST Pre-transplant evaluation for kidney transplant Stage 4 chronic kidney disease (HCC) CBC AUTO DIFFERENTIAL Routine 09/01/2024 2:46 PM EST Pre-transplant evaluation for kidney transplant Stage 4 chronic kidney disease (HCC) CREATININE Routine 09/01/2024 2:46 PM EST Pre-transplant evaluation for kidney transplant Stage 4 chronic kidney disease (HCC) CYTOMEGALOVIRUS ANTIBODY, IGG Routine 09/01/2024 2:46 PM EST Pre-transplant evaluation for kidney transplant Stage 4 chronic kidney disease (HCC) ERICK-PIERRE VIRUS ANTIBODY PANEL Routine 09/01/2024 2:46 PM EST Pre-transplant evaluation for kidney transplant Stage 4 chronic kidney disease (HCC) HEPATITIS A ANTIBODY, TOTAL Routine 09/01/2024 2:46 PM EST Pre-transplant evaluation for kidney transplant Stage 4 chronic kidney disease (HCC) HEPATITIS B CORE ANTIBODY, TOTAL Routine 09/01/2024 2:46 PM EST Pre-transplant evaluation for kidney transplant Stage 4 chronic kidney disease (HCC) HEPATITIS B SURFACE ANTIGEN W/CONFIRMATION Routine 09/01/2024 2:46 PM EST Pre-transplant evaluation for kidney transplant Stage 4 chronic kidney disease (HCC) HEPATITIS B SURFACE ANTIBODY Routine 09/01/2024 2:46 PM EST Pre-transplant evaluation for kidney transplant Stage 4 chronic kidney disease (HCC) HEPATITIS C ANTIBODY W/REFLEX TO HCV RNA, QUANTITATIVE PCR Routine 09/01/2024 2:46 PM EST Pre-transplant evaluation for kidney transplant Stage 4 chronic kidney disease (HCC) HERPES SIMPLEX VIRUS 1&2 ANTIBODY, IGG Routine 09/01/2024 2:46 PM EST Pre-transplant evaluation for kidney transplant Stage 4 chronic kidney disease (HCC) MMR PANEL (MEASLES, MUMPS, RUBELLA), IGG Routine 09/01/2024 2:46 PM EST Pre-transplant evaluation for kidney transplant Stage 4 chronic kidney disease (HCC) PHOSPHORUS Routine 09/01/2024 2:46 PM EST Pre-transplant evaluation for kidney transplant Stage 4 chronic kidney disease (HCC) PROTIME-INR Routine 09/01/2024 2:46 PM EST Pre-transplant evaluation for kidney transplant Stage 4 chronic kidney disease (HCC) PTT Routine 09/01/2024 2:46 PM EST Pre-transplant evaluation for kidney transplant Stage 4 chronic kidney disease (HCC) QUANTIFERON-TB GOLD PLUS, 1 [id number] Routine 09/01/2024 2:46 PM EST Pre-transplant evaluation for kidney transplant Stage 4 chronic kidney disease (HCC) RPR (DIAGNOSIS) W/REFLEX TO TITER & TPPA [id number] Routine 09/01/2024 2:46 PM EST Pre-transplant evaluation for kidney transplant Stage 4 chronic kidney disease (HCC) VARICELLA ZOSTER ANTIBODY, IGG Routine 09/01/2024 2:46 PM EST Pre-transplant evaluation for kidney transplant Stage 4 chronic kidney disease (HCC) HLA TRANSPLANT WORK-UP (ALLELE LEVEL A/B/C/DRB1/FNE627/DQA1/ DQB1/DPA1/DPB1) Routine 09/01/2024 2:46 PM EST Pre-transplant evaluation for kidney transplant Stage 4 chronic kidney disease (HCC) HLA ANTIBODY IDENTIFICATION WITH TREATMENT - CLASS I Routine 09/01/2024 2:46 PM EST Pre-transplant evaluation for kidney transplant Stage 4 chronic kidney disease (HCC) HLA ANTIBODY IDENTIFICATION WITH TREATMENT - CLASS II Routine 09/01/2024 2:46 PM EST Pre-transplant evaluation for kidney transplant Stage 4 chronic kidney disease (HCC) PTH, INTACT (WITHOUT CALCIUM) Routine 09/01/2024 2:46 PM EST Pre-transplant evaluation for kidney transplant Stage 4 chronic kidney disease (HCC) from Last 3 Months Results * Due to [place] state law, this organization might not be sharing negative HIV tests. * HLA Transplan Work-Up(Allele Level A/B/C/DRB1/SFU579/DQA1/DQB1/DPA1/DPB1) (09/01/2024 2:46 PM EST) Pathologist [facility] Histocompatibility Laboratory Information See Below 09/08/2024 4:42 PM EST [facility] Comment: SONYA: ??[id number] ?Director: ??Arabella Garcia MD. [facility] PFI: ??[id number] UNOS: ??[id number] This test was developed and its performance characteristics determined by this laboratory. It has not been cleared or approved by the U.S. Food and Drug Administration. The FDA has determined that such clearance or approval is not necessary. This test is used for clinical purposes. It should not be regarded as investigational or for research. This laboratory is certified under the Clinical Laboratory Improvement Amendments of 1988 (CLIA-88) as qualified to perform high complexity clinical laboratory testing. B*-1 B*35:05 09/08/2024 4:42 PM EST [facility] B*-2 B*41:02 09/08/2024 4:42 PM EST [facility] B*-1 NMDP DATA NOT REPORTED 09/08/2024 4:42 PM EST [facility] B*-2 NMDP DATA NOT REPORTED 09/08/2024 4:42 PM EST [facility] Test Method NGS 09/08/2024 4:42 PM EST [facility] DQA1-1 DQA*03:01 09/08/2024 4:42 PM EST [facility] DQA1-2 DQA*05:05 09/08/2024 4:42 PM EST [facility] DQA1-1 NMDP DATA NOT REPORTED 09/08/2024 4:42 PM EST [facility] DQA1-2 NMDP DATA NOT REPORTED 09/08/2024 4:42 PM EST [facility] A*-1 A*66:01 09/08/2024 4:42 PM EST [facility] A*-2 A*68:01 09/08/2024 4:42 PM EST [facility] A*-1 NMDP DATA NOT REPORTED 09/08/2024 4:42 PM EST [facility] A*-2 NMDP DATA NOT REPORTED 09/08/2024 4:42 PM EST [facility] DQB1-1 DQB*03:01 09/08/2024 4:42 PM EST [facility] DQB1-2 DQB*03:02 09/08/2024 4:42 PM EST [facility] DQB1-1 NMDP DATA NOT REPORTED 09/08/2024 4:42 PM EST [facility] DQB1-2 NMDP DATA NOT REPORTED 09/08/2024 4:42 PM EST [facility] DRB3-1 3*01:01 09/08/2024 4:42 PM EST [facility] DRB3-2 DATA NOT REPORTED 09/08/2024 4:42 PM EST [facility] DRB3-1 NMDP DATA NOT REPORTED 09/08/2024 4:42 PM EST [facility] DRB3-2 NMDP DATA NOT REPORTED 09/08/2024 4:42 PM EST [facility] DRB4-1 DATA NOT REPORTED 09/08/2024 4:42 PM EST [facility] DRB4-2 4*01:01P 09/08/2024 4:42 PM EST [facility] DRB4-1 NMDP DATA NOT REPORTED 09/08/2024 4:42 PM EST [facility] DRB4-2 NMDP DATA NOT REPORTED 09/08/2024 4:42 PM EST [facility] DRB5-1 DATA NOT REPORTED 09/08/2024 4:42 PM EST [facility] DRB5-2 DATA NOT REPORTED 09/08/2024 4:42 PM EST [facility] DRB5-1 NMDP DATA NOT REPORTED 09/08/2024 4:42 PM EST [facility] DRB5-2 NMDP DATA NOT REPORTED 09/08/2024 4:42 PM EST [facility] DPA1-1 DPA*01:03 09/08/2024 4:42 PM EST [facility] DPA1-2 DATA NOT REPORTED 09/08/2024 4:42 PM EST [facility] DPA1-1 NMDP DATA NOT REPORTED 09/08/2024 4:42 PM EST [facility] DPA1-2 NMDP DATA NOT REPORTED 09/08/2024 4:42 PM EST [facility] C*-1 C*04:01 09/08/2024 4:42 PM EST [facility] C*-2 C*17:03 09/08/2024 4:42 PM EST [facility] C*-1 NMDP DATA NOT REPORTED 09/08/2024 4:42 PM EST [facility] C*-2 NMDP DATA NOT REPORTED 09/08/2024 4:42 PM EST [facility] DPB1-1 DPB*03:01P 09/08/2024 4:42 PM EST [facility] DPB1-2 DPB*04:02P 09/08/2024 4:42 PM EST [facility] DPB1-1 NMDP DATA NOT REPORTED 09/08/2024 4:42 PM EST [facility] DPB1-2 NMDP DATA NOT REPORTED 09/08/2024 4:42 PM EST [facility] DRB1-1 DR*04:04 09/08/2024 4:42 PM EST [facility] DRB1-2 DR*13:03 09/08/2024 4:42 PM EST [facility] DRB1-1 NMDP DATA NOT REPORTED 09/08/2024 4:42 PM EST [facility] DRB1-2 NMDP DATA NOT REPORTED 09/08/2024 4:42 PM EST [employer] [facility] Blood Structure of peripheral vein / Unknown Venipuncture / Unknown 09/01/2024 2:46 PM EST 09/01/2024 3:08 PM EST Tito Patricio MD HLA LAB ORDERABLES Edited Resul t - Final [employer] [facility] [address] [facility] Rm: [id number] [place] [address], * MMR Panel, IgG (09/01/2024 2:46 PM EST) Measles Antibody (IgG), Immune Status 122.00 AU/mL 09/02/2024 4:42 AM EST [employer] Comment: AU/mL ?Interpretation ----- ? <13.50 ? Not consistent with immunity 13.50-16.49 ?Equivocal >16.49 ? Consistent with immunity The presence of measles IgG suggests immunization or past or current infection with measles virus. For additional information, please refer to http://education.Squareknot/faq/IZB248 (This link is being provided for informational/ educational purposes only.) Mumps Antibody (IgG), Immune Status 11.90 AU/mL 09/02/2024 4:42 AM EST [employer] Comment: AU/mL ? Interpretation ------- ? <9.00 ? Not consistent with immunity 9.00-10.99 ?Equivocal >10.99 ?Consistent with immunity The presence of mumps IgG antibody suggests immunization or past or current infection with mumps virus. Rubella Antibody (IgG), Immune Status 6.46 Index 09/02/2024 4:42 AM EST [employer] Comment: ?Index ?Interpretation ?----- ?<0.90 ?Not consistent with immunity ?0.90-0.99 ?Equivocal ?> or = 1.00 ?Consistent with immunity The presence of rubella IgG antibody suggests immunization or past or current infection with rubella virus. Blood Structure of peripheral vein / Unknown Venipuncture / Unknown 09/01/2024 2:46 PM EST 09/01/2024 3:07 PM EST Narrative [facility] - 09/02/2024 4:42 AM EST [facility] Received Date: Tito Patricio MD LAB BLOOD ORDERABLES Final Resu lt [facility] [address] [facility] [address] [facility], [place] [address], [employer] [facility] [address] [facility] 3rd [address], [place] [address], * (ABNORMAL) Herpes Simplex Virus 1&2, IgG (09/01/2024 2:46 PM EST) HSV 1 IgG Type Specific Ab 38.20(H) index 09/02/2024 5:38 PM EST [employer] HSV 2 IgG Type Specific Ab 14.50(H) index 09/02/2024 5:38 PM EST [employer] Comment: ?Index ?Interpretation ?----- ?<0.90 ?Negative ?0.90-1.09 ?Equivocal ?>1.09 ?Positive This assay utilizes recombinant type-specific antigens to differentiate HSV-1 from HSV-2 infections. A positive result cannot distinguish between recent and past infection. If recent HSV infection is suspected but the results are negative or equivocal, the assay should be repeated in 4-6 weeks. The performance characteristics of the assay have not been established for pediatric populations, immunocompromised patients, or screening. For additional information, please refer to http://education.Squareknot/faq/HAC438 (This link is being provided for informational/ educational purposes only.) ?? Blood Structure of peripheral vein / Unknown Venipuncture / Unknown 09/01/2024 2:46 PM EST 09/01/2024 3:07 PM EST Narrative [facility] - 09/02/2024 5:38 PM EST [facility] Received Date: us Tito Patricio MD LAB BLOOD ORDERABLES Final Resu lt [facility] [address] [facility] [address], [place] [address], [place] [phone] [employer] [facility] [address] [facility] [address], [place] [address], [place] [phone] * RPR (Diagnosis) w/Reflex to Titer & TPPA Confirm (09/01/2024 2:46 PM EST) RPR W/Refl Titer NON-REACT MIKE NON-REACT MIKE 09/04/2024 12:24 PM EST [employer] Blood Structure of peripheral vein / Unknown Venipuncture / Unknown 09/01/2024 2:46 PM EST 09/01/2024 3:07 PM EST Narrative [facility] - 09/04/2024 12:24 PM EST [facility] Received Date: Tito Patricio MD LAB BLOOD ORDERABLES Final Resu lt [facility] [address] [facility] [address], [place] [address], [employer] [facility] [address], [place] [address], * QuantiFERON-TB Gold Plus, 1 Tube (09/01/2024 2:46 PM EST) QuantiFERON-TB Gold Plus NEGATIVE NEGATIVE 09/04/2024 4:11 PM EST [employer] [facility] Comment: Negative test result. M. tuberculosis complex infection unlikely. NIL 0.05 IU/mL 09/04/2024 4:11 PM EST [employer] [facility] Mitogen-NIL 7.77 IU/mL 09/04/2024 4:11 PM EST [employer] [facility] TB1-NIL 0.05 IU/mL 09/04/2024 4:11 PM EST [employer] TB2-NIL 0.05 IU/mL 09/04/2024 4:11 PM EST [employer] [facility] Comment: The Nil tube value reflects the background interferon gamma immune response of the patient's blood sample. This value has been subtracted from the patient's displayed TB and Mitogen results. Lower than expected results with the Mitogen tube prevent false-negative Quantiferon readings by detecting a patient with a potential immune suppressive condition and/or suboptimal pre-analytical specimen handling. The TB1 Antigen tube is coated with the M. tuberculosis-specific antigens designed to elicit responses from TB antigen primed CD4+ helper T-lymphocytes. The TB2 Antigen tube is coated with the M. tuberculosis-specific antigens designed to elicit responses from TB antigen primed CD4+ helper and CD8+ cytotoxic T-lymphocytes. For additional information, please refer to https://education.Kwicr/faq/MIW191 (This link is being provided for informational/ educational purposes only.) Blood Structure of peripheral vein / Unknown Venipuncture / Unknown 09/01/2024 2:46 PM EST 09/01/2024 3:06 PM EST Narrative [facility] - 09/04/2024 4:11 PM EST [facility] Received Date: Tito Patricio MD LAB BLOOD ORDERABLES Final Resu lt [address], [place] [address], [employer] [facility] [address], [place] [address], * (ABNORMAL) CBC Auto Differential (09/01/2024 2:46 PM EST) WBC 6.2 3.8 - 10.8 10*3/uL 09/01/2024 3:19 PM EST [facility] RBC 2.28(L) 3.80 - 5.10 10*6/uL 09/01/2024 3:19 PM EST [facility] Hemoglobin 6.6(LL) 11.7 - 15.5 g/dL 09/01/2024 3:19 PM EST [facility] Hematocrit 22.3(L) 35.0 - 45.0 % 09/01/2024 3:19 PM EST [facility] MCV 97.8 80.0 - 100.0 fL 09/01/2024 3:19 PM EST [facility] MCH 28.9 27.0 - 33.0 pg 09/01/2024 3:19 PM EST [facility] MCHC 29.6(L) 32.0 - 36.0 g/dL 09/01/2024 3:19 PM EST [facility] RDW 16.4(H) 11.0 - 15.0 % 09/01/2024 3:19 PM EST [facility] Platelets 217 140 - 400 10*3/uL 09/01/2024 3:19 PM EST [facility] MPV 11.0 7.5 - 12.5 fL 09/01/2024 3:19 PM EST [facility] Neutrophil % 61.9 % 09/01/2024 3:19 PM EST [facility] Immature Grans % 0.3 0.0 - 0.9 % 09/01/2024 3:19 PM EST [facility] Lymphocyte % 29.6 % 09/01/2024 3:19 PM EST [facility] Monocyte % 5.4 % 09/01/2024 3:19 PM EST [facility] Eosinophil % 2.3 % 09/01/2024 3:19 PM EST [facility] Basophil % 0.5 % 09/01/2024 3:19 PM EST [facility] Neutrophil # 3.81 1.50 - 7.80 10*3/uL 09/01/2024 3:19 PM EST [facility] Immature Grans # <0.03 <=0.03 10*3/uL 09/01/2024 3:19 PM EST [facility] Lymphocyte # 1.80 0.85 - 3.90 10*3/uL 09/01/2024 3:19 PM EST [facility] Monocyte # 0.30 0.20 - 0.95 10*3/uL 09/01/2024 3:19 PM EST [facility] Eosinophil # 0.10 0.02 - 0.50 10*3/uL 09/01/2024 3:19 PM EST [facility] Basophil # <0.03 0.00 - 0.20 10*3/uL 09/01/2024 3:19 PM EST [facility] nRBC % 0.0 /100 WBCs 09/01/2024 3:19 PM EST [facility] nRBC # <0.01 <0.01 10*3/uL 09/01/2024 3:19 PM EST [facility] [employer] [facility]ICAL [facility] LABORATORY Blood Structure of peripheral vein / Unknown Venipuncture / Unknown 09/01/2024 2:46 PM EST 09/01/2024 3:10 PM EST us Tito Patricio MD LAB BLOOD ORDERABLES Final Resu lt [facility] [address] [place] [address], * (ABNORMAL) Erick-Pierre Virus VCA Antibody Panel (09/01/2024 2:46 PM EST) EBV Viral Capsid Ag Ab (IGM) <36.00 U/mL 09/02/2024 11:27 AM [employer] Comment: ?U/mL ?Interpretation ?---- ?<36.00 ?Negative ?36.00-43.99 ? Equivocal ?>43.99 ?Positive EBV Viral Capsid Ag Ab (IGG) >750.00(H) U/mL 09/02/2024 11:27 AM [employer] Comment: ? U/mL ? Interpretation ? ---- ? <18.00 ? Negative ? 18.00-21.99 ?Equivocal ? >21.99 ? Positive EBV Nuclear Ag Ab <18.00 U/mL 024 11:27 AM EST [employer] Comment: ? U/mL ? Interpretation ? ---- ? <18.00 ? Negative ? 18.00-21.99 ?Equivocal ? >21.99 ? Positive Interpretation: See Comments 09/02/2024 11:27 AM EST [employer] Comment: Results indicate infection with EBV, but the time since primary infection cannot be determined due to the absence of both VCA IgM and EBNA IgG. Suggest repeat testing in 2-3 weeks if clinically indicated. Blood Structure of peripheral vein / Unknown Venipuncture / Unknown 09/01/2024 2:46 PM EST 09/01/2024 3:10 PM EST Narrative DEJAN GALVEZ - 09/02/2024 11:27 AM EST [facility] Received Date: us Tito Patricio MD LAB BLOOD ORDERABLES Final Resu lt [facility] [address] [facility] [address], [place] [address], [place] [phone] [employer] [facility] [address] [facility] 3rd [address], [place] [address], [place] [phone] * Hepatitis C Antibody w/Reflex to PCR (09/01/2024 2:46 PM EST) Hepatitis C Antibody NON-REACT MIKE NON-REACT MIKE 09/02/2024 7:23 AM EST [employer] [facility] Comment: HCV antibody was non-reactive. There is no laboratory evidence of HCV infection. In most cases, no further action is required. However, if recent HCV exposure is suspected, a test for HCV RNA (test code 95001) is suggested. For additional information please refer to http://[employer].Kwicr/faq/IPN26x1 (This link is being provided for informational/ educational purposes only.) Blood Structure of peripheral vein / Unknown Venipuncture / Unknown 09/01/2024 2:46 PM EST 09/01/2024 3:07 PM EST Narrative [place] [facility] [place] - 09/02/2024 7:23 AM EST [facility] Received Date: Tito Patricio MD LAB BLOOD ORDERABLES Final Resu lt [facility] [address] [facility] [address], [place] [address], [employer] [facility] [address] [facility] [address], [place] [address], * (ABNORMAL) Hepatitis A Antibody, Total (09/01/2024 2:46 PM EST) Hepatitis A Ab, Total REACTIVE( A) NON-REACT MIKE 09/02/2024 7:18 AM EST [employer] [facility] Comment: For additional information, please refer to http://[employer].Kwicr/faq/OVA351 (This link is being provided for informational/ educational purposes only.) Blood Structure of peripheral vein / Unknown Venipuncture / Unknown 09/01/2024 2:46 PM EST 09/01/2024 3:10 PM EST Narrative [place] [facility] [place] - 09/02/2024 7:18 AM EST [facility] Received Date:[id number] us Tito Patricio MD LAB BLOOD ORDERABLES Final Resu lt DEJAN GALVEZ [address], [place] [address], [place] [phone] [employer] [facility] [address], [place] [address], [place] [phone] * Hepatitis B Core Antibody, Total (09/01/2024 2:46 PM EST) Hepatitis B Core Ab Total NON-REACT MIKE NON-REACT MIKE 09/02/2024 5:13 PM EST [employer] [facility] Comment: For additional information, please refer to http://education.Kwicr/faq/SFX404 (This link is being provided for informational/ educational purposes only.) Blood Structure of peripheral vein / Unknown Venipuncture / Unknown 09/01/2024 2:46 PM EST 09/01/2024 3:07 PM EST Narrative [facility] - 09/02/2024 5:13 PM EST [facility] Received Date:[id number] us Tito Patricio MD LAB BLOOD ORDERABLES Final Resu lt DEJAN GALVEZ [address], [place] [address], [place] [phone] [employer] [facility] [address], [place] [address], [place] [phone] * ABO/Rh Blood Type (09/01/2024 2:46 PM EST) ABO Blood Type A 09/01/2024 4:03 PM EST [facility] RH Type Positive 09/01/2024 4:03 PM EST [facility] Blood Structure of peripheral vein / Unknown Venipuncture / Unknown 09/01/2024 2:46 PM EST 09/01/2024 3:11 PM EST us Tito Patricio MD LAB BLOOD BANK TEST ORDERABLES Final Result [facility] [address] [place] [address], * Hepatitis B Surface Antibody (09/01/2024 2:46 PM EST) Hepatitis B Surface Ab Immunity, Qn 96 > OR = 10 mIU/mL 09/02/2024 6:38 AM EST [employer] [facility] Comment: PATIENT HAS IMMUNITY TO HEPATITIS B VIRUS. For additional information, please refer to http://[employer].Kwicr/faq/YEQ842 (This link is being provided for informational/ educational purposes only). Blood Structure of peripheral vein / Unknown Venipuncture / Unknown 09/01/2024 2:46 PM EST 09/01/2024 3:10 PM EST Narrative [facility] - 09/02/2024 6:38 AM EST [facility] Received Date: us Tito Patricio MD LAB BLOOD ORDERABLES Final Resu lt Performing Organization Address City/[facility]/ZIP Co de Phone Number [address] [facility], [place] [address], [place] [phone] [employer] [address], [place] [address], [place] [phone] * Hepatitis B Surface Antigen w/Confirmation (09/01/2024 2:46 PM EST) Hepatitis B Surface Antigen NON-REACT MIKE NON-REACT MIKE 09/02/2024 6:01 AM EST [employer] [facility] Comment: For additional information, please refer to http://[employer].Kwicr/faq/LGU782 (This link is being provided for informational/ educational purposes only.) Blood Structure of peripheral vein / Unknown Venipuncture / Unknown 09/01/2024 2:46 PM EST 09/01/2024 3:07 PM EST Narrative [place] [facility] [place] - 09/02/2024 6:01 AM EST [facility] Received Date: Tito Patricio MD LAB BLOOD ORDERABLES Final Resu lt DEJAN GALVEZ [address] [facility] [address], [place] [address], [employer] [facility] [address] [facility] [address], [place] [address], * (ABNORMAL) Cytomegalovirus Antibody, IgG (09/01/2024 2:46 PM EST) Cytomegalovirus Antibody (IgG) >10.00(H ) U/mL 09/02/2024 4:42 AM EST [employer] Comment: ? U/mL ? Interpretation ? ----- ? <0.60 ? Negative ? 0.60-0.69 ? Equivocal ? > or = 0.70 ?? Positive A positive result indicates that the patient has antibody to CMV. It does not differentiate between an active or past infection. Blood Structure of peripheral vein / Unknown Venipuncture / Unknown 09/01/2024 2:46 PM EST 09/01/2024 3:07 PM EST Narrative DEJAN GALVEZ - 09/02/2024 4:42 AM EST [facility] Received Date: Tito Patricio MD LAB BLOOD ORDERABLES Final Resu lt [facility] [place] [address] [facility] [address], [place] [address], [place] [phone] [employer] [facility] [address] [facility] [address], [place] [address], [place] [phone] * PTT (09/01/2024 2:46 PM EST) aPTT 26.8 23.0 - 32.0 Seconds 09/01/2024 3:27 PM EST [facility] Comment: Current PTT reagent is not sensitive to detect all Lupus Anticoagulant (LA) Inhibitor Cases. ?? If a LA is suspected, please order a Lupus Anticoagulation w/ Reflex Test which is performed at [facility] in [place], [place]. Blood Structure of peripheral vein / Unknown Venipuncture / Unknown 09/01/2024 2:46 PM EST 09/01/2024 3:07 PM EST Tito Patricio MD LAB BLOOD ORDERABLES Final Resu lt [facility] [address] [place] [address], * Protime-INR (09/01/2024 2:46 PM EST) PT 10.0 9.6 - 12.4 Seconds 09/01/2024 3:27 PM EST [facility] INR 0.9 0.9 - 1.1 09/01/2024 3:27 PM EST [facility] Comment:The optimal therapeu tic INR range for patients treated with Vitamin K antagonists (VKAS, e.g., Warfarin) is 2.0 to 3.5. Discuss the desired range with your doctor/care team. Blood Structure of peripheral vein / Unknown Venipuncture / Unknown 09/01/2024 2:46 PM EST 09/01/2024 3:07 PM EST Tito Patricio MD LAB BLOOD ORDERABLES Final Resu lt [facility] [address] [place] [address], * Varicella Zoster Antibody, IgG (09/01/2024 2:46 PM EST) Varicella Zoster Virus Antibody 26.10 S/CO 09/02/2024 5:29 PM EST [employer] Comment: ?Signal to Cut-off ? S/CO ?Interpretation ? --------- ?<1.00 ?Negative - Antibody not detected ?> or = 1.00 ?Positive - Antibody detected ?A positive result indicates that the patient ?has antibody to VZV but does not differentiate ?between an active or past infection. ?The clinical diagnosis must be interpreted in ?conjunction with the clinical signs and symptoms of ?the patient. This assay reliably measures immunity ?due to previous infection but may not be ?sensitive enough to detect antibodies induced by ?vaccination. Thus, a negative result in a vaccinated ?individual does not necessarily indicate ?susceptibility to VZV infection. A more sensitive ?test for vaccination-induced immunity is Varicella ?Zoster Virus Antibody Immunity Screen, ACIF. Blood Structure of peripheral vein / Unknown Venipuncture / Unknown 09/01/2024 2:46 PM EST 09/01/2024 3:07 PM EST Narrative [facility] 09/02/2024 5:29 PM EST [facility] Received Date: us Tito Patricio MD LAB BLOOD ORDERABLES Final Resu lt [facility] [address] [facility] [address], [place] [address], [place] [phone] [employer] [facility] [address] [place] [address], [place] [address], [place] [phone] * (ABNORMAL) BUN (09/01/2024 2:46 PM EST) BUN 87(H) 7 - 23 mg/dL 09/01/2024 3:52 PM EST [facility] Blood Structure of peripheral vein / Unknown Venipuncture / Unknown 09/01/2024 2:46 PM EST 09/01/2024 3:10 PM EST us Tito Patricio MD LAB BLOOD ORDERABLES Final Resu lt Performing Organization Address City/[facility]/ZIP Co de Phone Number [facility] [address] [place] [address], [place] * ALT (09/01/2024 2:46 PM EST) ALT 10 10 - 40 U/L 09/01/2024 3:52 PM EST [facility] Blood Structure of peripheral vein / Unknown Venipuncture / Unknown 09/01/2024 2:46 PM EST 09/01/2024 3:10 PM EST us Tito Patricio MD LAB BLOOD ORDERABLES Final Resu lt [facility] [address] [place] [address], [place] * AST (09/01/2024 2:46 PM EST) AST 12 10 - 40 U/L 09/01/2024 3:52 PM EST [facility] Blood Structure of peripheral vein / Unknown Venipuncture / Unknown 09/01/2024 2:46 PM EST 09/01/2024 3:10 PM EST iTto Patricio MD LAB BLOOD ORDERABLES Final Resu lt Performing Organization Address [facility] de Phone Number [facility] [address] [place] [address] * (ABNORMAL) Phosphorus (09/01/2024 2:46 PM EST) Pathologist [facility] Phosphorus 8.2(H) 2.5 - 4.5 mg/dL 09/01/2024 3:52 PM EST [facility] Blood Structure of peripheral vein / Unknown Venipuncture / Unknown 09/01/2024 2:46 PM EST 09/01/2024 3:10 PM EST Tito Patricio MD LAB BLOOD ORDERABLES Final Resu Performing Organization Address [facility] de Phone Number [facility] [address] [place] [address] * (ABNORMAL) PTH, Intact (without Calcium) (09/01/2024 2:46 PM EST) Pathologist [facility] Parathyroid Hormone, Intact 1488(H) 16 - 77 pg/mL 09/03/2024 7:22 AM EST [facility] Comment: Interpretive Guide ?Intact PTH ? Calcium ? ------- Normal Parathyroid ?Normal ? Normal Hypoparathyroidism ?Low or Low Normal ?Low Hyperparathyroidism ?? Primary ?Normal or High ? High ?? Secondary ?High ? Normal or Low ?? Tertiary ? High ? High Non-Parathyroid ?? Hypercalcemia ?Low or Low Normal ?High Blood Structure of peripheral vein / Unknown Venipuncture / Unknown 09/01/2024 2:46 PM EST 09/01/2024 3:10 PM EST Narrative [facility] - 09/03/2024 7:22 AM EST [facility] Received Date: us Tito Patricio MD LAB BLOOD ORDERABLES Final Resu lt [facility] [address] [facility] [address], [place] [address], [place] [phone] [employer] [facility] [address] [facility] 3rd [address], [place] [address], * (ABNORMAL) Creatinine (09/01/2024 2:46 PM EST) Creatinine 6.72(H) 0.50 - 1.20 mg/dL 09/01/2024 3:52 PM EST [facility] eGFR 7(L) >=60 mL/min/1 .73m2 09/01/2024 3:52 PM EST [facility] Comment:The estimated glomer ular filtration rate (eGFR) is calculated using a new formula developed by the NKF-ASN task force to eliminate race-based correction factors. The new formula uses serum/plasma creatinine, age, and gender to determine eGFR. A value below 60mls/min might indicate kidney disease and will be flagged. For additional information, see Makenzie et al, Am J Kidney Dis. 2021;79(2):268- 288, A Unifying Approach for GFR estimation: Recommendations of the NKF-ASN Task Force on Reassessing the Inclusion of Race in Diagnosing Kidney Disease . Blood Structure of peripheral vein / Unknown Venipuncture / Unknown 09/01/2024 2:46 PM EST 09/01/2024 3:10 PM EST us Tito Patricio MD LAB BLOOD ORDERABLES Final Resu lt Performing Organization Address [facility]/ZIP Co de Phone Number [facility] [address] [place] [address], [place] * (ABNORMAL) Calcium (09/01/2024 2:46 PM EST) Calcium 8.1(L) 8.6 - 10.5 mg/dL 09/01/2024 3:52 PM EST [facility] Blood Structure of peripheral vein / Unknown Venipuncture / Unknown 09/01/2024 2:46 PM EST 09/01/2024 3:10 PM EST us Tito Patricio MD LAB BLOOD ORDERABLES Final Resu lt Performing Organization Address [facility]/ZIP Co de Phone Number [facility] [address] [place] [address], [place] * Bilirubin, Direct (09/01/2024 2:46 PM EST) Bilirubin, Direct <0.1 <=0.4 mg/dL 09/01/2024 3:54 PM EST [facility] Blood Structure of peripheral vein / Unknown Venipuncture / Unknown 09/01/2024 2:46 PM EST 09/01/2024 3:10 PM EST us Tito Patricio MD LAB BLOOD ORDERABLES Final Resu lt Performing Organization Address City/[facility]/ZIP Co de Phone Number [facility] [address] [place] [address], [place] * (ABNORMAL) Bilirubin, Total (09/01/2024 2:46 PM EST) Bilirubin, Total <0.2(L) 0.2 - 1.2 mg/dL 09/01/2024 3:54 PM EST [facility] Blood Structure of peripheral vein / Unknown Venipuncture / Unknown 09/01/2024 2:46 PM EST 09/01/2024 3:10 PM EST Tito Patricio MD LAB BLOOD ORDERABLES Final Resu lt Performing Organization Address [facility]/ZIP Co de Phone Number [facility] [address] * Albumin (09/01/2024 2:46 PM EST) Albumin 4.0 3.5 - 5.2 g/dL 09/01/2024 3:52 PM EST [facility] Blood Structure of peripheral vein / Unknown Venipuncture / Unknown 09/01/2024 2:46 PM EST 09/01/2024 3:10 PM EST Tito Patricio MD LAB BLOOD ORDERABLES Final Resu lt Performing Organization Address City/[facility] Co de Phone Number [facility] [address] [place] [address] from Last [address] [place] [address] [place] [address] [place] [id number] [facility] [employer] [place] [id number] Care Teams Division Operations Specialist Relationship Specialty Start Date End Date Emanuel Scruggs [address] [place], [place] [phone] PCP - General 03/22/17
--- OUTSIDE RECORDS SUMMARY | 2024-10-10 15:31 | XMS_ITS ---
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
--- OUTSIDE RECORDS SUMMARY | 2024-10-10 15:31 | XMS_ITS | Referral Summary ---
Author Organization [facility] Address [address] [place] [address] Care Team Providers Care Tour Operator Name Role Phone Emanuel Scruggs Primary Care Provider [phone] Encounters Date Type Department Care Team Description 10/08/2024 Telephone [facility] Transplant Department [address] [place] [address] Kimber Fallon, RN 10/01/2024 Orders Only [facility] Transplant Department [address] [place] [address] Tito Patricio MD Renovascular hypertension (Primary Dx) 09/23/2024 Telephone [facility] Transplant Department [address] [place] [address] Kimber Fallon, RN 09/19/2024 Telephone [facility] Transplant Department [address] [place] [address] Kimber Fallon, RN 09/01/2024 2:35 PM EST Lab [facility] [place] [facility] Draw Site [address] [place] [address] Pre-transplant evaluation for kidney transplant; Stage 4 chronic kidney disease (HCC) 09/01/2024 Orders Only [facility] Transplant Department [address] [place] [address] Kimber Fallon, RN Pre-transplant evaluation for kidney transplant (Primary Dx); Stage 4 chronic kidney disease (HCC) 09/01/2024 1:45 PM EST Social Work [facility] Renal Transplant [address] [place] [address] Thomas Freeman 09/01/2024 1:00 PM EST Office Visit [facility] Renal Transplant [address] [place] [address] Devante Juarez MD Heher, Eliot C, MD Pre-transplant evaluation for kidney transplant (Primary Dx); Chronic kidney disease, stage V (HCC) 09/01/2024 11:45 AM EST Evaluation [facility] Renal Transplant [address] [place] [address] Kimber Fallon RN Pre-transplant evaluation for kidney transplant (Primary Dx) 09/01/2024 11:15 AM EST Office Visit [facility] Renal Transplant [address] [place] [address] Karen Madrigal RN Pre-transplant evaluation for kidney transplant (Primary Dx) 08/28/2024 Telephone [facility] Transplant Department [address] [place] [address] Kimber Fallon, LEROY from Last 3 Months Allergies Active Allergy Reactions Criticality Noted Date [...] hernia 09/13/2016 Essential hypertension 09/13/2016 Asthma 09/13/2016 Social History Tobacco Use Types Packs/Day Years [...] 09/01/2024 10:57 AM EST Plan of Treatment Not on file Procedures * Due to [place] state law, this organization might not be [...] kidney disease (HCC) QUANTIFERON-TB GOLD PLUS, 1 [id number] Routine 09/01/2024 2:46 PM EST Pre-transplant evaluation for kidney transplant Stage 4 chronic kidney disease (HCC) RPR (DIAGNOSIS) W/REFLEX TO TITER & TPPA [id number] Routine 09/01/2024 2:46 PM EST Pre-transplant evaluation for kidney transplant Stage 4 chronic kidney disease (HCC) VARICELLA ZOSTER ANTIBODY, IGG Routine 09/01/2024 2:46 PM EST Pre-transplant evaluation for kidney transplant Stage 4 chronic kidney disease (HCC) HLA TRANSPLANT WORK-UP (ALLELE LEVEL A/B/C/DRB1/LBQ022/DQA1/ DQB1/DPA1/DPB1) Routine 09/01/2024 2:46 PM EST Pre-transplant [...] Last 3 Months Results * Due to [place] state law, this organization might not be sharing negative HIV tests. * HLA Transplan Work-Up(Allele Level A/B/C/DRB1/KIP456/DQA1/DQB1/DPA1/DPB1) (09/01/2024 2:46 PM EST) Pathologist [facility] Histocompatibility Laboratory Information See Below 09/08/2024 4:42 PM EST [facility] Comment: SONYA: ?Director: ??Arabella Garcia MD. [facility] PFI: ??[id number] UNOS: ??[id number] This test [...] EST [facility] Blood Structure of peripheral vein / Unknown Venipuncture / Unknown 09/01/2024 2:46 PM EST 09/01/2024 3:08 PM EST us Tito Patricio MD HLA LAB ORDERABLES Edited Resul t - Final [facility] [address] [facility] Rm: [id number] [place] [address], * MMR Panel, IgG (09/01/2024 2:46 PM EST) Measles Antibody (IgG), Immune Status 122.00 AU/mL 09/02/2024 4:42 AM EST [facility] Comment: AU/mL ?Interpretation ----- ? <13.50 ? Not consistent with immunity 13.50-16.49 ?Equivocal >16.49 ? Consistent with immunity The presence of measles IgG suggests immunization or past or current infection with measles virus. For additional information, please refer to http://Is That Odd.3ROAM/faq/KSH672 (This link is being provided for informational/ educational purposes only.) Mumps Antibody (IgG), Immune Status 11.90 AU/mL 09/02/2024 4:42 AM EST [facility] Comment: AU/mL ? Interpretation ------- ? <9.00 ? Not consistent with immunity 9.00-10.99 ?Equivocal >10.99 ?Consistent with immunity The presence of mumps IgG antibody suggests immunization or past or current infection with mumps virus. Rubella Antibody (IgG), Immune Status 6.46 Index 09/02/2024 4:42 AM EST [facility] Comment: ?Index ?Interpretation ?----- ?<0.90 ?Not consistent with immunity ?0.90-0.99 ?Equivocal ?> or = 1.00 ?Consistent with immunity The presence of rubella IgG antibody suggests immunization or past or current infection with rubella virus. Blood Structure of peripheral vein / Unknown Venipuncture / Unknown 09/01/2024 2:46 PM EST 09/01/2024 3:07 PM EST Narrative DEJAN GALVEZ - 09/02/2024 4:42 AM EST [facility] Received Date: us Tito Patricio MD LAB BLOOD ORDERABLES Final Resu lt [facility] [address] [facility] 3rd Floor, [place] [address], [place] [phone] [employer] [facility] 200 [facility] 3rd Floor, [place] [address], [place] [phone] * (ABNORMAL) Herpes Simplex Virus 1&2, IgG (09/01/2024 2:46 PM EST) [facility] HSV 1 IgG Type Specific Ab 38.20(H) index 09/02/2024 5:38 PM EST [employer] [facility] HSV 2 IgG Type Specific Ab 14.50(H) index 09/02/2024 5:38 PM EST [employer] [facility] Comment: ?Index ?Interpretation ?----- ?<0.90 ?Negative ?0.90-1.09 [...] screening. For additional information, please refer to http://education.WorkWell [employer].The New Hive/faq/ASI296 (This link is being provided for informational/ educational purposes only.) ?? Blood Structure of peripheral vein / Unknown Venipuncture / Unknown 09/01/2024 2:46 PM EST 09/01/2024 3:07 PM EST Narrative [facility] - 09/02/2024 5:38 PM EST [facility] Received Date: us Tito Patricio MD LAB BLOOD ORDERABLES Final Resu lt DEJAN [facility] [address] [facility] 3rd Floor, [place] [address], [place] [phone] [facility] [address] [facility] 3rd Floor, [place] [address], [place] [phone] * RPR (Diagnosis) w/Reflex to Titer & TPPA Confirm (09/01/2024 2:46 PM EST) RPR W/Refl Titer NON-REACT MIKE NON-REACT MIKE 09/04/2024 12:24 PM EST [employer] [facility] Blood Structure of peripheral vein / Unknown Venipuncture / Unknown 09/01/2024 2:46 PM EST 09/01/2024 3:07 PM EST Narrative [facility] - 09/04/2024 12:24 PM EST [facility] Received Date: us Tito Patricio MD LAB BLOOD ORDERABLES Final Resu lt DEJAN ETNA [address] [facility] 3rd Floor, [place] [address], [place] [phone] [employer] [facility] [address] [facility] [address]rd [facility], [place] [address], [place] [phone] * QuantiFERON-TB Gold Plus, 1 Tube (09/01/2024 2:46 PM EST) QuantiFERON-TB Gold Plus NEGATIVE NEGATIVE 09/04/2024 4:11 PM EST [employer] [facility] Comment: Negative test result. M. tuberculosis complex infection unlikely. NIL 0.05 IU/mL 09/04/2024 4:11 PM EST [employer] [facility] Mitogen-NIL 7.77 IU/mL 09/04/2024 4:11 PM EST [employer] [facility] TB1-NIL 0.05 IU/mL 09/04/2024 4:11 PM EST [facility] TB2-NIL 0.05 IU/mL 09/04/2024 4:11 PM EST [employer] [facility] Comment: The Nil tube value reflects the [...] T-lymphocytes. For additional information, please refer to https://education.Eonsmoke, LLC/faq/AAT777 (This link is being provided for informational/ educational purposes only.) Blood Structure of peripheral vein / Unknown Venipuncture / Unknown 09/01/2024 2:46 PM EST 09/01/2024 3:06 PM EST Narrative [facility] - 09/04/2024 4:11 PM EST [facility] Received Date: us Tito Patricio MD LAB BLOOD ORDERABLES Final Resu lt DEJAN [address], [place] [address], [place] [phone] [employer] [address], [place] [address], [place] [phone] * (ABNORMAL) CBC Auto Differential (09/01/2024 2:46 PM EST) WBC 6.2 3.8 - 10.8 10*3/uL 09/01/2024 3:19 PM EST [facility] RBC 2.28(L) 3.80 - 5.10 10*6/uL 09/01/2024 3:19 PM EST [facility] Hemoglobin 6.6(LL) 11.7 - [...] <0.03 <=0.03 10*3/uL 09/01/2024 3:19 PM EST [facility] Mira EnergyH[facility] [employer] CLINICAL PATHOLOGY LABORATORY Lymphocyte # 1.80 0.85 - 3.90 10*3/uL 09/01/2024 3:19 PM EST [facility] Mira [facility] [employer] CL[facility]ICAL PATHOLOGY LABORATORY Monocyte # 0.30 0.20 - 0.95 10*3/uL 09/01/2024 3:19 PM EST [facility] [employer] CLINICAL PATHOLOGY LABORATORY Eosinophil # 0.10 0.02 - 0.50 10*3/uL 09/01/2024 3:19 PM EST [facility]ITALA[facility] Mira [facility] [email or web address] CLINICAL PATHOLOGY LABORATORY Basophil # <0.03 0.00 - 0.20 10*3/uL 09/01/2024 3:19 PM EST [facility]ITAL[facility] M[facility] [employer] CLINICAL PATHOLOGY LABORATORY nRBC % 0.0 /100 WBCs 09/01/2024 3:19 PM EST [facility] M[facility]MER[facility] [email or web address] CLINICAL PATHOLOGY LABORATORY nRBC # <0.01 <0.01 10*3/uL 09/01/2024 3:19 PM EST [facility] [email or web address] CL[facility]ICAL PATHOLOGY LABORATORY Blood Structure of peripheral vein / Unknown Venipuncture / Unknown 09/01/2024 2:46 PM EST 09/01/2024 3:10 PM EST us Tito Patricio MD LAB BLOOD ORDERABLES Final Resu lt [facility] [employer] CLINICAL PATHOLOGY LABORATORY [address] [place] [address], * (ABNORMAL) Erick-Pierre Virus VCA Antibody Panel (09/01/2024 2:46 PM EST) EBV Viral Capsid Ag Ab (IGM) <36.00 U/mL 09/02/2024 11:27 AM EST [facility] Comment: ?U/mL ?Interpretation ?---- ?<36.00 ?Negative ?36.00-43.99 ? Equivocal ?>43.99 ?Positive EBV Viral Capsid Ag Ab (IGG) >750.00(H) U/mL 09/02/2024 11:27 AM [facility] Comment: ? U/mL ? Interpretation ? ---- ? <18.00 ? Negative ? 18.00-21.99 ?Equivocal ? >21.99 ? Positive EBV Nuclear Ag Ab <18.00 U/mL 11:27 AM [facility] Comment: ? U/mL ? Interpretation ? ---- ? <18.00 ? Negative ? 18.00-21.99 ?Equivocal ? >21.99 ? Positive Interpretation: See Comments 09/02/2024 11:27 AM [facility] Comment: Results indicate infection with EBV, but the time since primary infection cannot be determined due to the absence of both VCA IgM and EBNA IgG. Suggest repeat testing in 2-3 weeks if clinically indicated. Blood Structure of peripheral vein / Unknown Venipuncture / Unknown 09/01/2024 2:46 PM EST 09/01/2024 3:10 PM EST Narrative [facility] - 09/02/2024 11:27 AM EST [employer] Received Date: us Tito Patricio MD LAB BLOOD ORDERABLES Final Resu lt Performing Organization Address City/[facility]/ZIP Co de Phone Number DEJAN GALVEZ [address], [place] [address], [place] [phone] [employer] [facility] [address], [place] [address], [place] [phone] * Hepatitis C Antibody w/Reflex to PCR (09/01/2024 2:46 PM EST) Hepatitis C Antibody NON-REACT MIKE NON-REACT MIKE 09/02/2024 7:23 AM EST [facility] Comment: HCV antibody was non-reactive. There is no laboratory evidence of HCV infection. In most cases, no further action is required. However, if recent HCV exposure is suspected, a test for HCV RNA (test code 08911) is suggested. For additional information please refer to http://Is That Odd.Eonsmoke, LLC/faq/DTY22i3 (This link is being provided for informational/ educational purposes only.) Blood Structure of peripheral vein / Unknown Venipuncture / Unknown 09/01/2024 2:46 PM EST 09/01/2024 3:07 PM EST Narrative [facility] GALVE[facility] - 09/02/2024 7:23 AM EST [facility] Received Date: us Tito Patricio MD LAB BLOOD ORDERABLES Final Resu lt Performing Organization Address City/[facility]/ZIP Co de Phone Number DEJAN GALVEZ [address], [place] [address], [place] [phone] [employer] [facility] [address], [place] [address], [place] [phone] * (ABNORMAL) Hepatitis A Antibody, Total (09/01/2024 2:46 PM EST) Hepatitis A Ab, Total REACTIVE( A) NON-REACT MIKE 09/02/2024 7:18 AM EST [facility] Comment: For additional information, please refer to http://Is That Odd.Eonsmoke, LLC/faq/DFV189 (This link is being provided for informational/ educational purposes only.) Blood Structure of peripheral vein / Unknown Venipuncture / Unknown 09/01/2024 2:46 PM EST 09/01/2024 3:10 PM EST Narrative [facility] - 09/02/2024 7:18 AM EST [facility] Received Date: us Tito Patricio MD LAB BLOOD ORDERABLES Final Resu lt Performing Organization Address City/[facility]/ZIP Co de Phone Number DEJAN [facility] [address], [place] [address], [place] [phone] [employer] [address], [place] [address], [place] [phone] * Hepatitis B Core Antibody, Total (09/01/2024 2:46 PM EST) Hepatitis B Core Ab Total NON-REACT MIKE NON-REACT MIKE 09/02/2024 5:13 PM EST [employer] [facility] Comment: For additional information, please refer to http://Is That Odd.Eonsmoke, LLC/faq/VNS458 (This link is being provided for informational/ educational purposes only.) Blood Structure of peripheral vein / Unknown Venipuncture / Unknown 09/01/2024 2:46 PM EST 09/01/2024 3:07 PM EST Narrative [facility] - 09/02/2024 5:13 PM EST [facility] Received Date:[id number] us Tito Patricio MD LAB BLOOD ORDERABLES Final Resu lt Performing Organization Address City/[facility]/ZIP Co de Phone Number [facility] [address], [place] [address], [place] [phone] [employer] [facility] [address], [place] [address], [place] [phone] * ABO/Rh Blood Type (09/01/2024 2:46 PM EST) Pathologist [facility] ABO Blood Type A 09/01/2024 4:03 PM EST [facility] RH Type Positive 09/01/2024 4:03 PM EST [facility] Blood Structure of peripheral vein / Unknown Venipuncture / Unknown 09/01/2024 2:46 PM EST 09/01/2024 3:11 PM EST us Tito Patricio MD LAB BLOOD BANK TEST ORDERABLES Final Result [facility] [address] [place] [address], [place] [phone] * Hepatitis B Surface Antibody (09/01/2024 2:46 PM EST) Pathologist [facility] Hepatitis B Surface Ab Immunity, Qn 96 > OR = 10 mIU/mL 09/02/2024 6:38 AM EST [employer] [facility] Comment: PATIENT HAS IMMUNITY TO HEPATITIS B VIRUS. For additional information, please refer to http://education.Eonsmoke, LLC/faq/EVB106 (This link is being provided for informational/ educational purposes only). Blood Structure of peripheral vein / Unknown Venipuncture / Unknown 09/01/2024 2:46 PM EST 09/01/2024 3:10 PM EST Narrative [facility] - 09/02/2024 6:38 AM EST [facility] Received Date: us Tito Patricio MD LAB BLOOD ORDERABLES Final Resu lt [facility] [address] [facility] 3rd Floor, [place] [address], [place] [phone] [employer] [facility] 200 [facility] 3rd Floor, [place] [address], [place] [phone] * Hepatitis B Surface Antigen w/Confirmation (09/01/2024 2:46 PM EST) Pathologist [facility] Hepatitis B Surface Antigen NON-REACT MIKE NON-REACT MIKE 09/02/2024 6:01 AM EST [facility] Comment: For additional information, please refer to http://education.Eonsmoke, LLC/faq/TGW433 (This link is being provided for informational/ educational purposes only.) Blood Structure of peripheral vein / Unknown Venipuncture / Unknown 09/01/2024 2:46 PM EST 09/01/2024 3:07 PM EST Narrative [facility] - 09/02/2024 6:01 AM EST [facility] Received Date: us Tito Patricio MD LAB BLOOD ORDERABLES Final Resu lt DEJAN ETNA [address] [facility] 3rd Floor, [place] [address], [employer] [facility] [address], [place] [address], * (ABNORMAL) Cytomegalovirus Antibody, IgG (09/01/2024 2:46 PM EST) Cytomegalovirus Antibody (IgG) >10.00(H ) U/mL 09/02/2024 4:42 AM EST [facility] Comment: ? U/mL ? Interpretation ? ----- ? <0.60 ? Negative ? 0.60-0.69 ? Equivocal ? > or = 0.70 ?? Positive A positive result indicates that the patient has antibody to CMV. It does not differentiate between an active or past infection. Blood Structure of peripheral vein / Unknown Venipuncture / Unknown 09/01/2024 2:46 PM EST 09/01/2024 3:07 PM EST Narrative [facility] 09/02/2024 4:42 AM EST [facility] Received Date: us Tito Patricio MD LAB BLOOD ORDERABLES Final Resu lt [address], [place] [address], [place] [phone] [employer] [address], [place] [address], [place] [phone] * PTT (09/01/2024 2:46 PM EST) aPTT 26.8 23.0 - 32.0 Seconds 09/01/2024 3:27 PM EST [facility] Comment: Current PTT reagent is not sensitive to detect all Lupus Anticoagulant (LA) Inhibitor Cases. ?? If a LA is suspected, please order a Lupus Anticoagulation w/ Reflex Test which is performed at [facility] in [place], [place]. Blood Structure of peripheral vein / Unknown Venipuncture / Unknown 09/01/2024 2:46 PM EST 09/01/2024 3:07 PM EST us Tito Patricio MD LAB BLOOD ORDERABLES Final Resu lt [employer] CL[facility]ICAL PATHOLOGY LABORATORY [address] [place] [address], * Protime-INR (09/01/2024 2:46 PM EST) PT 10.0 9.6 - 12.4 Seconds 09/01/2024 3:27 PM EST [facility] INR 0.9 0.9 - 1.1 09/01/2024 3:27 PM EST [facility] Comment:The optimal therapeu tic INR range for patients treated with Vitamin K antagonists (VKAS, e.g., Warfarin) is 2.0 to 3.5. Discuss the desired range with your doctor/care team. Blood Structure of peripheral vein / Unknown Venipuncture / Unknown 09/01/2024 2:46 PM EST 09/01/2024 3:07 PM EST us Tito Patricio MD LAB BLOOD ORDERABLES Final Resu lt [facility] [address] [place] [address], * Varicella Zoster Antibody, IgG (09/01/2024 2:46 PM EST) Varicella Zoster Virus Antibody 26.10 S/CO 09/02/2024 5:29 PM EST [facility] Comment: ?Signal to Cut-off ? S/CO ?Interpretation [...] EST 09/01/2024 3:07 PM EST Narrative [facility] - 09/02/2024 5:29 PM EST [facility] Received Date: us Tito Patricio MD LAB BLOOD ORDERABLES Final Resu lt Performing Organization Address City/[facility]/ZIP Co de Phone Number [facility] [address] [facility] 3rd Floor, [place] [address], [place] [phone] [employer] [address], [place] [address], [place] [phone] * (ABNORMAL) BUN (09/01/2024 2:46 PM EST) BUN 87(H) 7 - 23 mg/dL 09/01/2024 3:52 PM EST [facility] Blood Structure of peripheral vein / Unknown Venipuncture / Unknown 09/01/2024 2:46 PM EST 09/01/2024 3:10 PM EST us Tito Patricio MD LAB BLOOD ORDERABLES Final Resu lt Performing Organization Address [facility]/ZIP Co de Phone Number [facility] [address] [place] [address], * ALT (09/01/2024 2:46 PM EST) ALT 10 10 - 40 U/L 09/01/2024 3:52 PM EST [facility] Blood Structure of peripheral vein / Unknown Venipuncture / Unknown 09/01/2024 2:46 PM EST 09/01/2024 3:10 PM EST us Tito Patricio MD LAB BLOOD ORDERABLES Final Resu lt [facility] [address] [place] [address], * AST (09/01/2024 2:46 PM EST) AST 12 10 - 40 U/L 09/01/2024 3:52 PM EST [facility] Blood Structure of peripheral vein / Unknown Venipuncture / Unknown 09/01/2024 2:46 PM EST 09/01/2024 3:10 PM EST Tito Patricio MD LAB BLOOD ORDERABLES Final Resu lt Performing Organization Address [facility] de Phone Number [facility] [address] [place] [address], * (ABNORMAL) Phosphorus (09/01/2024 2:46 PM EST) Pathologist [facility] Phosphorus 8.2(H) 2.5 - 4.5 mg/dL 09/01/2024 3:52 PM EST [facility] Blood Structure of peripheral vein / Unknown Venipuncture / Unknown 09/01/2024 2:46 PM EST 09/01/2024 3:10 PM EST Tito Patricio MD LAB BLOOD ORDERABLES Final Resu lt Performing Organization Address [facility] de Phone Number [facility] [address] [place] [address], * (ABNORMAL) PTH, Intact (without Calcium) (09/01/2024 2:46 PM EST) Parathyroid Hormone, Intact 1488(H) 16 - 77 pg/mL 09/03/2024 7:22 AM EST [facility] Comment: Interpretive Guide ?Intact PTH ? Calcium [...] EST 09/01/2024 3:10 PM EST Narrative [facility] - 09/03/2024 7:22 AM EST [facility] Received Date: Tito Patricio MD LAB BLOOD ORDERABLES Final Resu lt [facility] [address] [facility] 3rd [address], [place] [address], [place] [phone] [employer] [facility] 200 [facility] 3rd Floor, [place] [address], * (ABNORMAL) Creatinine (09/01/2024 2:46 PM EST) Creatinine 6.72(H) 0.50 - 1.20 mg/dL 09/01/2024 3:52 PM EST [facility] eGFR 7(L) >=60 mL/min/1 .73m2 09/01/2024 3:52 PM EST [facility] Comment:The estimated glomer ular [...] ORDERABLES Final Resu lt Performing Organization Address City/[facility]/ZIP Co de Phone Number [facility] [employer] [address] [place] [address], * (ABNORMAL) Calcium (09/01/2024 2:46 PM EST) Calcium 8.1(L) 8.6 - 10.5 mg/dL 09/01/2024 3:52 PM EST [facility] Blood Structure of peripheral vein / Unknown Venipuncture / Unknown 09/01/2024 2:46 PM EST 09/01/2024 3:10 PM EST us Tito Patricio MD LAB BLOOD ORDERABLES Final Resu lt Performing Organization Address City/[facility]/ZIP Co de Phone Number [facility] [employer] [address] [place] [address], * Bilirubin, Direct (09/01/2024 2:46 PM EST) Bilirubin, Direct <0.1 <=0.4 mg/dL 09/01/2024 3:54 PM EST [facility] Blood Structure of peripheral vein / Unknown Venipuncture / Unknown 09/01/2024 2:46 PM EST 09/01/2024 3:10 PM EST us Tito Patricio MD LAB BLOOD ORDERABLES Final Resu lt Performing Organization Address [facility] Co de Phone Number [facility] [address] [place] [id number] * (ABNORMAL) Bilirubin, Total (09/01/2024 2:46 PM EST) Bilirubin, Total <0.2(L) 0.2 - 1.2 mg/dL 09/01/2024 3:54 PM EST [facility] Blood Structure of peripheral vein / Unknown Venipuncture / Unknown 09/01/2024 2:46 PM EST 09/01/2024 3:10 PM EST Tito Patricio MD LAB BLOOD ORDERABLES Final Resu lt Performing Organization Address [facility] Co de Phone Number [employer] [facility] [address] [place] [address] * Albumin (09/01/2024 2:46 PM EST) Albumin 4.0 3.5 - 5.2 g/dL 09/01/2024 3:52 PM EST [employer] [facility] Blood Structure of peripheral vein / Unknown Venipuncture / Unknown 09/01/2024 2:46 PM EST 09/01/2024 3:10 PM EST Tito Patricio MD LAB BLOOD ORDERABLES Final Resu lt Performing Organization Address City/[facility]/ZIP Co de Phone Number [employer] [facility] [address] [place] [address], from Last [address] [place] [address] [facility] Care Teams Tour Operator Relationship Specialty Start Date End Date Emanuel Scruggs [address] [place] [id number] PCP - General 03/22/17
--- OUTSIDE RECORDS SUMMARY | 2024-10-10 15:32 | XMS_ITS | Encounter Summary ---
Author Organization [facility] Address [address] [place] [address] Care Team Providers Care Labour Market Economist Name Role Phone Emanuel Scruggs Primary Care Provider [phone] Encounter Details Date Type Department Care Team (Late st Contact Info) Description 09/19/2024 Telephone [facility] Transplant Department [address] [place] [address] [phone] Kimber Fallon RN [address] [place] [phone] Social History Tobacco Use Types Packs/Day Years Used Date Smoking Tobacco: Former Smokeless Tobacco: Never Comments:: Comments Unknown Sex and Gender Information Value Date Recorded Sex Assigned at Not on file Legal Sex Female 7:19 PM EDT Gender Identity Not on file Sexual Orientation Not on file documented as of this encounter Miscellaneous Notes * Telephone Encounter - Kimber Fallon RN - 09/19/2024 1:59 PM EST LVM for Briteny with request for call back to discuss her mother's interest/willingness to pursue transplant. documented in this encounter Plan of Treatment Not on file documented as of this encounter Visit Diagnoses Not on filedocumented in this encounter Care Teams Labour Market Economist Relationship Specialty Start Date End Date Emanuel Scruggs [address] [place] [address] [id number] PCP - General 03/22/17 documented as of this encounter
--- OUTSIDE RECORDS SUMMARY | 2024-10-10 15:32 | XMS_ITS | Clinical Summary ---
Author Organization [facility] Facility Address [address] [place] [address] Care Team Providers Care Foreclosure Clerk Name Role Phone Mary Garcia LISA Primary Care Provider [phone] Allergies Active Allergy Reactions Criticality Noted Date Comments Penicillin V Rash Low 09/20/2022 Medications amLODIPine (NORVASC) 10 MG tablet TAKE 1 TABLET BY MOUTH EVERY DAY 90 tablet 5 2 Active sodium bicarbonate 650 MG tablet Comments: Filled Date: Mar 12 2020 2:47PM Patient Notes: TAKE 1 TABLET BY MOUTH ONCE A DAY Duration: 90 0 Active ferrous sulfate 325 (65 Fe) MG tablet Take 1 tablet by mouth in the morning and 1 tablet in the evening. Active ergocalciferol 1.25 MG (68376 UT) capsule Take 1 capsule by mouth 1 (one) time per week Active cetirizine (ZyrTEC) 10 MG tablet TAKE 1 TABLET BY MOUTH EVERY DAY NEEDED FOR PRURITIS 2 Active carvedilol (COREG) 3.125 MG tablet TAKE 1 TABLET BY MOUTH TWICE A DAY WITH A MEAL/FOOD 3 Active atorvastatin (LIPITOR) 20 MG tablet Take 1 tablet by mouth 1 (one) time each day Active amLODIPine (NORVASC) 10 MG tablet Comments: Filled Date: Sep 28 2020 12:00AM Patient Notes: TAKE 1 TABLET BY MOUTH ONCE A DAY Duration: 90 0 Active Active Problems Problem Noted Date Diagnosed Date Small kidney 09/20/2022 Renal stone 09/20/2022 Chronic kidney disease stage 4 09/20/2022 Benign hypertensive renal disease 09/20/2022 Aneurysm of renal artery 09/20/2022 Family History Medical History Relation Comments Diabetes Mother Gout Mother Heart disease Mother Hypertension Mother Stroke Mother Hypertension Sibling sister Relation Status Comments Father Mother Sibling Social History Tobacco Use Types Packs/Day Years Used Date Smoking Tobacco: Former Comments:Smoking History Inf o:Some days Alcohol Use Standard Drinks/Week Comments No 0 (1 standard drink = 0.6 oz pur e alcohol) Comments Unknown Sex and Gender Information Value Date Recorded Sex Assigned at Not on file Legal Sex Female 5:14 PM EST Gender Identity Not on file Sexual Orientation Not on file Last Filed Vital Signs Vital Sign Reading Time Taken Comments Blood Pressure 120/80 05/14/2019 12:01 PM EDT Pulse 88 05/14/2019 12:01 PM EDT Temperature - - Respiratory Rate - - Oxygen Saturation - - Inhaled Oxygen Concentration - - Weight 94.4 kg (208 lb 3.2 oz) 05/14/2019 12:01 PM EDT Height 167.6 cm (5' 6 ) 05/14/2019 12:01 PM EDT Body Mass Index 33.6 05/14/2019 12:01 PM EDT Plan of Treatment Health Maintenance Due Date Last Done Comments Breast Cancer Screening 1965 Pneumococcal Vaccine: Pediat rics (0 to 5 Years) and At-Risk Patients (6 to 64 Years) (1 of 2 - PCV) 1971 Hepatitis B Vaccine (1 of 3 - 19+ 3-dose series) 06/08 Colorectal Cancer Screening: Annual FOBT 2014 Colorectal Cancer Screening: Colonoscopy 2014 Colorectal Cancer Screening: Sigmoidoscopy 2014 Influenza Vaccine (#1) 2024 Insurance [place] [place] [employer] [id number] [facility] [place] [id number] Care Teams Foreclosure Clerk Relationship Specialty Start Date End Date Mary Garcia FNP [address] [place] [address] PCP - General 06/19/22
--- OUTSIDE RECORDS SUMMARY | 2024-10-10 15:32 | XMS_ITS | Encounter Summary ---
Author Organization [facility] Address [address] [place] [address] Care Team Providers Care Comfort Station Supervisor Name Role Phone Emanuel Scruggs Primary Care Provider [phone] Reason for Referral * MRI/CAT/PET Scan (Routine) - Authorized Specialty Diagnoses / Procedures Referred By Contac t Referred To Contact Radiology Diagnoses Renovascular hypertension Procedures CT Abdomen Pelvis without Contrast Tito Patricio MD [address] [place] [phone] Phone: tel: fax: Referral ID Status Reason Start Date Expiration Date V isits Requested Visits Authorized [id number] Authorized 10/01/2024 04/02/2026 1 1 * Cardiac Diagnostic Testing (Routine) - Closed Specialty Diagnoses / Procedures Referred By Contac t Referred To Contact Diagnoses Renovascular hypertension Procedures Transthoracic echo (TTE) TRANSTHORACIC ECHO (TTE) TRANSTHORACIC ECHO (TTE) LIMITED TRANSTHORACIC ECHO (TTE) LIMITED W/ CONTRAST TRANSTHORACIC ECHO (TTE) LIMITED W/ COLOR TRANSTHORACIC ECHO (TTE) LIMITED W/ DOPPLER AND COLOR TRANSTHORACIC ECHO (TTE) LIMITED W/ DOPPLER, COLOR AND CONTRAST Tito Patricio MD [address] [place] [address] Phone: tel: fax: Referral ID Status Reason Start Date Expiration Date Visits Re quested Visits Authorized [id number] Closed 10/01/2024 04/02/2026 1 1 Encounter Details Date Type Department Care Team (Late st Contact Info) Description 10/01/2024 Orders Only [facility] Transplant Department [address] [place] [address] Tito Patricio MD [address] [place] [address] Renovascular hypertension (Primary Dx) Social History Tobacco Use Types Packs/Day Years Used Date Smoking Tobacco: Former Smokeless Tobacco: Never Comments:: Comments Unknown Sex and Gender Information Value Date Recorded Sex Assigned at Not on file Legal Sex Female 7:19 PM EDT Gender Identity Not on file Sexual Orientation Not on file documented as of this encounter Plan of Treatment Scheduled Orders Name Type Priority Associated Diagnoses Orde r Schedule Transthoracic echo (TTE) Echocardiography Routine Renovascular hypertension Expected: 10/01/2024, Expires: 10/01/2026 CT Abdomen Pelvis without Contrast Imaging Routine Renovascular hypertension Expected: 10/15/2024, Expires: 11/29/2025 documented as of this encounter Visit Diagnoses Diagnosis Renovascular hypertension- Primary Secondary renovascular hypertension, unspecified documented in this encounter Care Teams Comfort Station Supervisor Relationship Specialty Start Date End Date Emanuel Scruggs [address] [place] [id number] PCP - General 03/22/17 documented as of this encounter
--- OUTSIDE RECORDS SUMMARY | 2024-10-10 15:32 | XMS_ITS | Encounter Summary ---
Author Organization [facility] Address [address] [place] [address] Care Team Providers Care Literacy Tutor Name Role Phone Emanuel Scruggs Primary Care Provider [phone] Encounter Details Date Type Department Care Team (Late st Contact Info) Description 09/23/2024 Telephone [facility] Transplant Department [address] [place] [address] [phone] Kimber Fallon RN [address] [place] [address] Social History Tobacco Use Types Packs/Day Years Used Date Smoking Tobacco: Former Smokeless Tobacco: Never Comments:: Comments Unknown Sex and Gender Information Value Date Recorded Sex Assigned at Not on file Legal Sex Female 7:19 PM EDT Gender Identity Not on file Sexual Orientation Not on file documented as of this encounter Miscellaneous Notes * Telephone Encounter - Kimber Fallon RN - 09/23/2024 12:42 PM EST Britney returned my call and told me her mother is willing to have dialysis and wishes to move forwardwith transplant evaluation. I reviewed with Britney that her mother's PTH level was > 1000. I askedher to contact Dr Betancur to review whether her mother is on for her PTH. It is recorded she is on Sevelemer, but Britney did not recognize the medication name. Plan to move forward with txp evaluation. documented in this encounter Plan of Treatment Not on file documented as of this encounter Visit Diagnoses Not on filedocumented in this encounter Care Teams Literacy Tutor Relationship Specialty Start Date End Date Emanuel Scruggs [address] [place] [id number] PCP - General 03/22/17 documented as of this encounter
--- OUTSIDE RECORDS SUMMARY | 2024-10-10 15:32 | XMS_ITS | Encounter Summary ---
Author Organization [facility] Address [address] [place] [address] Care Team Providers Care Regulator Assembler Name Role Phone Emanuel Scruggs Primary Care Provider [phone] Encounter Details Date Type Department Care Team (Late st Contact Info) Description 10/08/2024 Telephone [facility] Transplant Department [address] [place], [place] [phone] Kimber Fallon RN [address] [place] [address] Social History Tobacco Use Types Packs/Day Years Used Date Smoking Tobacco: Former Smokeless Tobacco: Never Comments:: Comments Unknown Sex and Gender Information Value Date Recorded Sex Assigned at Not on file Legal Sex Female 7:19 PM EDT Gender Identity Not on file Sexual Orientation Not on file documented as of this encounter Miscellaneous Notes * Telephone Encounter - Pete Garcia - 10/08/2024 4:14 PM EST No Authorization is required call [facility] [phone] spoke with Isabela Doherty Ref#[id number] documented in this encounter Plan of Treatment Not on file documented as of this encounter Visit Diagnoses Not on filedocumented in this encounter Care Teams Regulator Assembler Relationship Specialty Start Date End Date Emanuel Scruggs [address] [place], [place] [phone] PCP - General 03/22/17 documented as of this encounter
[2024-10-10 15:39] VITALS: BP 144/77; PULSE 71; RESP 19; TEMP 36.6; O2SAT 100
== END 2024-10-10 15:39 | disposition home or self-care (01) ==
PROVIDERS: Emergency Provider Emergency Medicine Emergency Medical Services; PCP Internal Medicine
DX: D64.9 Anemia, unspecified (principal); R79.89 Other specified abnormal findings of blood chemistry; I48.91 Unspecified atrial fibrillation; Z87.891 Personal history of nicotine dependence; Z79.899 Other long term (current) drug therapy
CPT/HCPCS: 36415; 85025; 93242; 99282; 99283

== ENCOUNTER 2024-10-22 10:55 | Outpatient (AMB) | payer OTHER, SELFPAY ==
--- NOTE | 2024-10-22 10:58 | HO.NEPHOV ---
Vital Signs 10/22/24 11:00 Height 5 ft 5 in Weight 173 lb BMI 28.8 BP 130/82 Blood Pressure Location Rt brachial Position Sitting Intake Visit Reasons: [facility] HFU/ Conf Director Intelligence Analysis Programs Required: Yes Director Intelligence Analysis Programs Language: Solutions Delivery Consultant Services: Director Intelligence Analysis Programs Offered & Declined ([facility] spanish medical interpreter services refused. Pt accompanied by daughter. ) Accompanied by: Daughter Allergies Penicillins Allergy (Intermediate, Verified 10/22/24 11:00) RASH HPI Comments Details: 59-year-old with CKD stage 5 not yet on hemodialysis, HTN, HFrEF (LVEF 40-45% on 11/2023), chronic iron deficiency anemia, and hx of noncompliance with medications or follow up appointments who recently was in the hospital with blood in the stool. She was in the hospital for similar presentation and and had colonoscopy on 09/10/24 and had 2 polyps removed and large bleeding internal hemorrhoid and advsed Sitz bath and anusol. This hemoglobin has dropped from 11 to 8 and was thought to be related to a recent polypectomy. She needed transfusion of 1 unit of RBCs. She has not had any further bleeding. A repeat colonoscopy was considered but was not performed, in part because the patient no longer has active bleeding, and due to her worsening renal failure and refusal of dialysis. She has been advised to stop taking aspirin. She denies uremic symptoms. She doesnt want HD access .She was accompanied by her daughter. [facility] Medical History (Updated 10/22/24 @ 11:09 by Danis Betancur MD) Secondary hyperparathyroidism (of renal origin) CKD (chronic kidney disease) stage 5, GFR less than 15 ml/min Essential hypertension History of colon polyps Anemia in chronic kidney disease (CKD) Anemia CKD (chronic kidney disease) Chronic systolic (congestive) heart failure Cardiomyopathy Normocytic anemia Surgical History Hx of colonoscopy History of surgery Status post dilation and curettage History of abdominal surgery History of extraction of renal calculus History of tubal ligation Family History Father Throat cancer Mother Hypertension Daughter In good health Daughter In good health Sister In good health Family/Other Breast cancer Social History Household Members: None Housing: Apartment Are you a primary healthcare social worker to a significant other at home: No Do you presently have visiting nurse or other home services: No Alcohol intake: never Comment: recent syncopal episode with blood loss Patient Tobacco Use Status: Former Tobacco user Tobacco use type: Cigarette Years Smoked: 30 +/- e-Cigarette/Vaping Use: Never Used Second Hand Smoke Exposure: No service: No Current occupational status: unemployed Cognitive needs: No Hearing needs: No Vision needs: No Review of Systems Const All systems reviewed & are unremarkable except as noted in HPI and below Physical Exam Const General: comfortable and no acute distress Orientation/consciousness: patient oriented x3 HEENT Head: Yes normocephalic Mouth: Normal oral and palatal mucosa present Eyes EOM: EOMs intact bilaterally Neck Neck: Yes supple Resp Auscultation: clear to auscultation bilaterally Cardio Jugular venous distension: no JVD Rate: regular rate GI Palpation (GI): Soft to palpation Auscultation: normal bowel sounds General: Yes no CVA tenderness Back/Spine/Pelvis Back: no CVA tenderness Skin General skin exam: no rashes or lesions noted Neuro General: patient oriented x3 and moves all extremities Extrem General: Yes no pedal edema Office Meds epoetin tian-epbx 10,000 unit/mL injection solution Performing Provider: Danis Betancur MD Performing Location: [facility] Administered by: Danis Betancur MD on 10/22/24 11:09 Dose Route Admin Location Dispensed Lot Number Expiration Date [facility] Oven Operator Automatic 40,000 unit subcut lue 4 mL [id number] 01/01/26 1567-3265-58 [employer]uan [employer] Results Reviewed Nephrology Results: Hgb 8.7 g/dl (12.0-16.0) L 10/10/24 WBC 6.8 X10*3/uL (4.8-10.8) 10/10/24 Plt Count 157 X10*3/uL (160-400) L 10/10/24 Sodium 145 mmol/L (135-145) 09/14/24 Potassium 5.2 mmol/L (3.3-5.1) H 09/14/24 Chloride 117 mmol/L (96-108) H 09/14/24 Carbon Dioxide 18 mmol/L (22-29) L 09/14/24 BUN 103 mg/dL (9-16) H 09/14/24 Creatinine 8.22 mg/dL (0.5-1.4) H* 09/14/24 Calcium 7.6 mg/dL (8.4-10.2) L 09/14/24 Assessment & Plan Assessment & Plan (1) Metabolic acidosis: Code(s): E87.20 - Acidosis, unspecified Category: Medical (2) CKD (chronic kidney disease) stage 5, GFR less than 15 ml/min: Code(s): N18.5 - Chronic kidney disease, stage 5 Category: Medical Plan 59-year-old woman with advanced renal failure who has approached end stage renal disease but has H/O refusing to take medications as well as dialysis. She had been NON compliant( daughter aware of all these issues). No overt signs or symptoms of uremia.No absolute clinical indication for dialysis today. She is not been taking medications as prescribed. 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 Encouraged to take Ferrous sulphate/ NaHCO3 / Vitamin D. Administered [id number] Units of Procrit today. Agreed for AVF( referred). Not a ideal candidate for transplant given non compliance and psycholological issues. F/U given Orders: Orders Ferritin 1 Month E87.20 - Acidosis, unspecified, N18.5 - Chronic kidney disease, stage 5 Electrolytes 1 Month E87.20 - Acidosis, unspecified, N18.5 - Chronic kidney disease, stage 5 Calcium 1 Month E87.20 - Acidosis, unspecified, N18.5 - Chronic kidney disease, stage 5 Blood Urea Nitrogen 1 Month E87.20 - Acidosis, unspecified, N18.5 - Chronic kidney disease, stage 5 Creatinine 1 Month E87.20 - Acidosis, unspecified, N18.5 - Chronic kidney disease, stage 5 AMB Epoetin Injection Practice Supplied Today D63.1 - Anemia in chronic kidney disease, N18.9 - Chronic kidney disease, unspecified Complete Blood Count Auto Diff 1 Month E87.20 - Acidosis, unspecified, N18.5 - Chronic kidney disease, stage 5 IRON PROFILE 1 Month E87.20 - Acidosis, unspecified, N18.5 - Chronic kidney disease, stage 5 Referrals Vascular Surgery Referral N18.5 - Chronic kidney disease, stage 5 Coding Level of Care Code Est Pt Level 4 (78198) Diagnoses Metabolic acidosis E87.20 CKD (chronic kidney disease) stage 5, GFR less than 15 ml/min N18.5
[2024-10-22 11:00] VITALS: BP 130/82; BMI 28.8
--- OUTSIDE RECORDS SUMMARY | 2024-10-22 11:40 | XMS_ITS | Referral Summary ---
Author Organization [facility] Address [address] [place] [address] Care Team Providers Care Emergency Doctor Name Role Phone Emanuel Scruggs Primary Care Provider [phone] Encounters Date Type Department Care Team Description 10/08/2024 Telephone [facility] Transplant Department [address] [place] [address] Kimber Fallon, RN 10/01/2024 Orders Only [facility] Department [address] [place] [address] Tito Patricio MD Renovascular hypertension (Primary Dx) 09/23/2024 Telephone [facility] Department [address] [place] [address] Kimber Fallon, RN 09/19/2024 Telephone [facility] [address] [place] [address] Kmiber Fallon, RN 09/01/2024 2:35 PM EST Lab [facility] Draw Site [address] [place] [address] Pre-transplant evaluation for kidney transplant; Stage 4 chronic kidney disease (HCC) 09/01/2024 Orders Only [facility] Department [address] [place] [phone] Kimber Fallon, RN Pre-transplant evaluation for kidney transplant (Primary Dx); Stage 4 chronic kidney disease (HCC) 09/01/2024 1:45 PM EST Social Work [facility] Ren[facility] Transplant [address] [place] [address] Thomas Freeman 09/01/2024 1:00 PM EST Office Visit [facility] Transplant [address] [place] [address] Devante Juarez MD Heher, Eliot C, MD Pre-transplant evaluation for kidney transplant (Primary Dx); Chronic kidney disease, stage V (HCC) 09/01/2024 11:45 AM EST Evaluation [facility] [address] [place] [phone] Kimber Fallon RN Pre-transplant evaluation for kidney transplant (Primary Dx) 09/01/2024 11:15 AM EST Office Visit [facility] [address] [place] [phone] Karen Madrigal RN Pre-transplant evaluation for kidney transplant (Primary Dx) 08/28/2024 Telephone [facility] Trans[facility] Department [address] [place] [address] Kimber Fallon, LEROY from Last 3 Months [...] Not on file Procedures * Due to [place] state law, this organization might not be [...] kidney disease (HCC) QUANTIFERON-TB GOLD PLUS, 1 [id number] Routine 09/01/2024 2:46 PM EST Pre-transplant evaluation for kidney transplant Stage 4 chronic kidney disease (HCC) RPR (DIAGNOSIS) W/REFLEX TO TITER & TPPA [id number] Routine 09/01/2024 2:46 PM EST Pre-transplant evaluation for kidney transplant Stage 4 chronic kidney disease (HCC) VARICELLA ZOSTER ANTIBODY, IGG Routine 09/01/2024 2:46 PM EST Pre-transplant evaluation for kidney transplant Stage 4 chronic kidney disease (HCC) HLA TRANSPLANT WORK-UP (ALLELE LEVEL A/B/C/DRB1/NJY247/DQA1/ DQB1/DPA1/DPB1) Routine 09/01/2024 2:46 PM EST Pre-transplant [...] Last 3 Months Results * Due to [place] state law, this organization might not be sharing negative HIV tests. * HLA Transplan Work-Up(Allele Level A/B/C/DRB1/NRB707/DQA1/DQB1/DPA1/DPB1) (09/01/2024 2:46 PM EST) Pathologist [facility]ibility Laboratory Information See Below 09/08/2024 4:42 PM EST [facility] Comment: SONYA: ?Director: ??Arabella Garcia MD. [facility] PFI: ??[id number] UNOS: ??[id number] This test was [...] [facility]IS[facility]LL [facility] [address] [facility] Rm: [id number] [place] [address], * MMR Panel, IgG (09/01/2024 2:46 PM EST) Measles Antibody (IgG), Immune Status 122.00 AU/mL 09/02/2024 4:42 AM EST [facility] Comment: AU/mL ?Interpretation ----- ? <13.50 ? Not consistent with immunity 13.50-16.49 ?Equivocal >16.49 ? Consistent with immunity The presence of measles IgG suggests immunization or past or current infection with measles virus. For additional information, please refer to http://Reasult.Myngle/faq/KTY038 (This link is being provided for informational/ educational purposes only.) Mumps Antibody (IgG), Immune Status 11.90 AU/mL 09/02/2024 4:42 AM EST [facility] Comment: AU/mL ? Interpretation ------- ? <9.00 ? Not consistent with immunity 9.00-10.99 ?Equivocal >10.99 ?Consistent with immunity The presence of mumps IgG antibody suggests immunization or past or current infection with mumps virus. Rubella Antibody (IgG), Immune Status 6.46 Index 09/02/2024 4:42 AM EST [facility] Comment: ?Index ?Interpretation ?----- ?<0.90 ?Not consistent [...] LAB BLOOD ORDERABLES Final Resu lt [facility] 200 [facility] 3rd Floor, [place] [address], [place] [phone] [employer] [facility] 200 [facility] 3rd Floor, [place] [address], [place] [phone] * (ABNORMAL) Herpes Simplex Virus 1&2, IgG (09/01/2024 2:46 PM EST) [facility] HSV 1 IgG Type Specific Ab 38.20(H) index 09/02/2024 5:38 PM EST [employer] [facility] HSV 2 IgG Type Specific Ab 14.50(H) index 09/02/2024 5:38 PM EST [employer] [facility] Comment: ?Index ?Interpretation ?----- ?<0.90 ?Negative [...] screening. For additional information, please refer to http://education.Maginatics.8Trip/faq/CKH969 (This link is being provided for informational/ educational purposes only.) ?? Blood Structure of peripheral vein / Unknown Venipuncture / Unknown 09/01/2024 2:46 PM EST 09/01/2024 3:07 PM EST Narrative [facility] - 09/02/2024 5:38 PM EST [facility] Received Date: us Tito Patricio MD LAB BLOOD ORDERABLES Final Resu lt [facility] 200 [facility] 3rd Floor, [place] [address], [place] [phone] [facility] [employer] [facility] 200 [facility] 3rd Floor, [place] [address], [place] [phone] * RPR (Diagnosis) w/Reflex to Titer & TPPA Confirm (09/01/2024 2:46 PM EST) RPR W/Refl Titer NON-REACT MIKE NON-REACT MIKE 09/04/2024 12:24 PM EST [employer] [facility] Blood Structure of peripheral vein / Unknown Venipuncture / Unknown 09/01/2024 2:46 PM EST 09/01/2024 3:07 PM EST Narrative [facility] - 09/04/2024 12:24 PM EST [facility] Received Date: us Tito Patricio MD LAB BLOOD ORDERABLES Final Resu lt [facility] 200 [facility] 3rd Floor, [place] [address], [place] [phone] [employer] [facility] 200 [facility] [address]rd [facility], [place] [address], [place] [phone] * QuantiFERON-TB Gold Plus, 1 Tube (09/01/2024 2:46 PM EST) QuantiFERON-TB Gold Plus NEGATIVE NEGATIVE 09/04/2024 4:11 PM EST [employer] [facility] Comment: Negative test result. M. tuberculosis complex infection unlikely. NIL 0.05 IU/mL 09/04/2024 4:11 PM EST [employer] [facility] Mitogen-NIL 7.77 IU/mL 09/04/2024 4:11 PM EST [employer] [facility] TB1-NIL 0.05 IU/mL 09/04/2024 4:11 PM EST [facility] TB2-NIL 0.05 IU/mL 09/04/2024 4:11 PM EST [employer] [facility] Comment: The Nil tube value reflects [...] T-lymphocytes. For additional information, please refer to https://education.Sun & [employer] Research/faq/PNH944 (This link is being provided for informational/ educational purposes only.) Blood Structure of peripheral vein / Unknown Venipuncture / Unknown 09/01/2024 2:46 PM EST 09/01/2024 3:06 PM EST Narrative [facility] - 09/04/2024 4:11 PM EST [facility] Received Date: us Tito Patricio MD LAB BLOOD ORDERABLES Final Resu lt DEJAN [address]rd Floor, [place] [address], [place] [phone] [employer] [address], [place] [address], [place] [phone] * (ABNORMAL) CBC Auto Differential (09/01/2024 2:46 PM EST) WBC 6.2 3.8 - 10.8 10*3/uL 09/01/2024 3:19 PM EST [facility] RBC 2.28(L) 3.80 - 5.10 10*6/uL 09/01/2024 3:19 PM EST [facility] Hemoglobin 6.6(LL) 11.7 - [...] <0.03 <=0.03 10*3/uL 09/01/2024 3:19 PM EST [facility] Lymphocyte # 1.80 0.85 - 3.90 10*3/uL 09/01/2024 3:19 PM EST [facility] Monocyte # 0.30 0.20 - 0.95 10*3/uL 09/01/2024 3:19 PM EST [facility] Eosinophil # 0.10 0.02 - 0.50 10*3/uL 09/01/2024 3:19 PM EST [facility] Basophil # <0.03 0.00 - 0.20 10*3/uL 09/01/2024 3:19 PM EST [facility] nRBC % 0.0 /100 WBCs 09/01/2024 3:19 PM EST [facility] nRBC # <0.01 <0.01 10*3/uL 09/01/2024 3:19 PM EST [facility] Blood Structure of peripheral vein / Unknown Venipuncture / Unknown 09/01/2024 2:46 PM EST 09/01/2024 3:10 PM EST us Tito Patricio MD LAB BLOOD ORDERABLES Final Resu lt [facility] [address] [place] [address], * (ABNORMAL) Erick-Pierre Virus VCA Antibody Panel (09/01/2024 2:46 PM EST) EBV Viral Capsid Ag Ab (IGM) <36.00 U/mL 09/02/2024 11:27 AM EST [facility] Comment: ?U/mL ?Interpretation ?---- ?<36.00 ?Negative ?36.00-43.99 ? Equivocal ?>43.99 ?Positive EBV Viral Capsid Ag Ab (IGG) >750.00(H) U/mL 09/02/2024 11:27 AM [employer] Comment: ? U/mL ? Interpretation ? ---- ? <18.00 ? Negative ? 18.00-21.99 ?Equivocal ? >21.99 ? Positive EBV Nuclear Ag Ab <18.00 U/mL 11:27 AM [employer] Comment: ? U/mL ? Interpretation ? ---- ? <18.00 ? Negative ? 18.00-21.99 ?Equivocal ? >21.99 ? Positive Interpretation: See Comments 09/02/2024 11:27 AM [employer] Comment: Results indicate infection with EBV, but the time since primary infection cannot be determined due to the absence of both VCA IgM and EBNA IgG. Suggest repeat testing in 2-3 weeks if clinically indicated. Blood Structure of peripheral vein / Unknown Venipuncture / Unknown 09/01/2024 2:46 PM EST 09/01/2024 3:10 PM EST Narrative [facility] - 09/02/2024 11:27 AM EST [employer] Received Date: us Tito Patricio MD LAB BLOOD ORDERABLES Final Resu lt Performing Organization Address City/[facility]/ZIP Co de Phone Number [facility]AL[facility] [address], [place] [address], [place] [phone] [employer] [facility] [address], [place] [address], [place] [phone] * Hepatitis C Antibody w/Reflex to PCR (09/01/2024 2:46 PM EST) Hepatitis C Antibody NON-REACT MIKE NON-REACT MIKE 09/02/2024 7:23 AM EST [facility] Comment: HCV antibody was non-reactive. There is no laboratory evidence of HCV infection. In most cases, no further action is required. However, if recent HCV exposure is suspected, a test for HCV RNA (test code 67859) is suggested. For additional information please refer to http://Reasult.Sun & Skin Care Research/faq/GZU59v4 (This link is being provided for informational/ educational purposes only.) Blood Structure of peripheral vein / Unknown Venipuncture / Unknown 09/01/2024 2:46 PM EST 09/01/2024 3:07 PM EST Narrative [facility] - 09/02/2024 7:23 AM EST [facility] Received Date: us Tito Patricio MD LAB BLOOD ORDERABLES Final Resu lt Performing Organization Address City/[facility]/ZIP Co de Phone Number [facility] [address], [place] [address], [place] [phone] [employer] [facility] [address], [place] [address], [place] [phone] * (ABNORMAL) Hepatitis A Antibody, Total (09/01/2024 2:46 PM EST) Hepatitis A Ab, Total REACTIVE( A) NON-REACT MIKE 09/02/2024 7:18 AM EST [facility] Comment: For additional information, please refer to http://Reasult.Sun & Skin Care Research/faq/JIN288 (This link is being provided for informational/ educational purposes only.) Blood Structure of peripheral vein / Unknown Venipuncture / Unknown 09/01/2024 2:46 PM EST 09/01/2024 3:10 PM EST [facility] 09/02/2024 7:18 AM EST [facility] Received Date: us Tito Patricio MD LAB BLOOD ORDERABLES Final Resu lt Performing Organization Address City/[facility]/ZIP Co de Phone Number [facility] [address], [place] [address], [place] [phone] [employer] [address], [place] [address], [place] [phone] * Hepatitis B Core Antibody, Total (09/01/2024 2:46 PM EST) Hepatitis B Core Ab Total NON-REACT MIKE NON-REACT MIKE 09/02/2024 5:13 PM EST [employer] [facility] Comment: For additional information, please refer to http://Reasult.Sun & Skin Care Research/faq/ZLB563 (This link is being provided for informational/ educational purposes only.) Blood Structure of peripheral vein / Unknown Venipuncture / Unknown 09/01/2024 2:46 PM EST 09/01/2024 3:07 PM EST Narrative [facility] 09/02/2024 5:13 PM EST [facility] Received Date:[id number] us Tito Patricio MD LAB BLOOD ORDERABLES Final Resu lt Performing Organization Address City/[facility]/ZIP Co de Phone Number [facility] [address], [place] [address], [place] [phone] [employer] [facility] [address], [place] [address], [place] [phone] * ABO/Rh Blood Type (09/01/2024 2:46 PM EST) Pathologist [facility] ABO Blood Type A 09/01/2024 4:03 PM EST [facility] RH Type Positive 09/01/2024 4:03 PM EST [facility] Blood Structure of peripheral vein / Unknown Venipuncture / Unknown 09/01/2024 2:46 PM EST 09/01/2024 3:11 PM EST us Tito Patricio MD LAB BLOOD BANK TEST ORDERABLES Final Result [facility]LO[facility]ANK INFCE [address] [place] [address], [place] [phone] * Hepatitis B Surface Antibody (09/01/2024 2:46 PM EST) Pathologist [facility] Hepatitis B Surface Ab Immunity, Qn 96 > OR = 10 mIU/mL 09/02/2024 6:38 AM EST [employer] [facility] Comment: PATIENT HAS IMMUNITY TO HEPATITIS B VIRUS. For additional information, please refer to http://education.Sun & Skin Care Research/faq/GDY341 (This link is being provided for informational/ educational purposes only). Blood Structure of peripheral vein / Unknown Venipuncture / Unknown 09/01/2024 2:46 PM EST 09/01/2024 3:10 PM EST Narrative [facility] - 09/02/2024 6:38 AM EST [facility] Received Date: us Tito Patricio MD LAB BLOOD ORDERABLES Final Resu lt [facility] 200 [facility] 3rd Floor, [place] [address], [place] [phone] [employer] [facility] 200 [facility] 3rd Floor, [place] [address], [place] [phone] * Hepatitis B Surface Antigen w/Confirmation (09/01/2024 2:46 PM EST) Pathologist [facility] Hepatitis B Surface Antigen NON-REACT MIKE NON-REACT MIKE 09/02/2024 6:01 AM EST [facility] Comment: For additional information, please refer to http://education.Sun & Skin Care Research/faq/NXC238 (This link is being provided for informational/ educational purposes only.) Blood Structure of peripheral vein / Unknown Venipuncture / Unknown 09/01/2024 2:46 PM EST 09/01/2024 3:07 PM EST Narrative [facility] - 09/02/2024 6:01 AM EST [facility] Received Date: us Tito Patricio MD LAB BLOOD ORDERABLES Final Resu lt [facility] 200 [facility] 3rd Floor, [place] [address], [facility] [facility] [address], [place] [address], * (ABNORMAL) Cytomegalovirus Antibody, IgG (09/01/2024 2:46 PM EST) Cytomegalovirus Antibody (IgG) >10.00(H ) U/mL 09/02/2024 4:42 AM EST [facility] Comment: ? U/mL ? Interpretation ? ----- ? <0.60 ? Negative ? 0.60-0.69 ? Equivocal ? > or = 0.70 ?? Positive A positive result indicates that the patient has antibody to CMV. It does not differentiate between an active or past infection. Blood Structure of peripheral vein / Unknown Venipuncture / Unknown 09/01/2024 2:46 PM EST 09/01/2024 3:07 PM EST Narrative [facility] 09/02/2024 4:42 AM EST [facility] Received Date: us Tito Patricio MD LAB BLOOD ORDERABLES Final Resu lt [address], [place] [address], [place] [phone] [employer] [address], [place] [address], [place] [phone] * PTT (09/01/2024 2:46 PM EST) aPTT 26.8 23.0 - 32.0 Seconds 09/01/2024 3:27 PM EST [facility] Comment: Current PTT reagent is not sensitive to detect all Lupus Anticoagulant (LA) Inhibitor Cases. ?? If a LA is suspected, please order a Lupus Anticoagulation w/ Reflex Test which is performed at [facility] in [place], [place]. Blood Structure of peripheral vein / Unknown Venipuncture / Unknown 09/01/2024 2:46 PM EST 09/01/2024 3:07 PM EST us Tito Patricio MD LAB BLOOD ORDERABLES Final Resu lt [employer] [facility] [facility] [address] [place] [address], * Protime-INR (09/01/2024 2:46 PM EST) PT 10.0 9.6 - 12.4 Seconds 09/01/2024 3:27 PM EST [facility] INR 0.9 0.9 - 1.1 09/01/2024 3:27 PM EST [facility] Comment:The optimal therapeu tic INR range for patients treated with Vitamin K antagonists (VKAS, e.g., Warfarin) is 2.0 to 3.5. Discuss the desired range with your doctor/care team. Blood Structure of peripheral vein / Unknown Venipuncture / Unknown 09/01/2024 2:46 PM EST 09/01/2024 3:07 PM EST us Tito Patricio MD LAB BLOOD ORDERABLES Final Resu lt [facility] [address] [place] [address], * Varicella Zoster Antibody, IgG (09/01/2024 2:46 PM EST) Varicella Zoster Virus Antibody 26.10 S/CO 09/02/2024 5:29 PM EST [facility] Comment: ?Signal to Cut-off ? S/CO ?Interpretation [...] EST 09/01/2024 3:07 PM EST Narrative [facility] - 09/02/2024 5:29 PM EST [facility] Received Date: us Tito Patricio MD LAB BLOOD ORDERABLES Final Resu lt Performing Organization Address City/[facility]/ZIP Co de Phone Number [facility] 200 [facility] 3rd Floor, [place] [address], [place] [phone] [employer] [address], [place] [address], [place] [phone] * (ABNORMAL) BUN (09/01/2024 2:46 PM EST) BUN 87(H) 7 - 23 mg/dL 09/01/2024 3:52 PM EST [facility] Blood Structure of peripheral vein / Unknown Venipuncture / Unknown 09/01/2024 2:46 PM EST 09/01/2024 3:10 PM EST us Tito Patricio MD LAB BLOOD ORDERABLES Final Resu lt Performing Organization Address [facility]/ZIP Co de Phone Number [facility] [address] [place] [address], * ALT (09/01/2024 2:46 PM EST) ALT 10 10 - 40 U/L 09/01/2024 3:52 PM EST [facility] Blood Structure of peripheral vein / Unknown Venipuncture / Unknown 09/01/2024 2:46 PM EST 09/01/2024 3:10 PM EST us Tito Patricio MD LAB BLOOD ORDERABLES Final Resu lt [facility] [address] [place] [address], * AST (09/01/2024 2:46 PM EST) AST 12 10 - 40 U/L 09/01/2024 3:52 PM EST [facility] Blood Structure of peripheral vein / Unknown Venipuncture / Unknown 09/01/2024 2:46 PM EST 09/01/2024 3:10 PM EST Tito Patricio MD LAB BLOOD ORDERABLES Final Resu lt Performing Organization Address [facility] de Phone Number [facility] [address] [place] [address], * (ABNORMAL) Phosphorus (09/01/2024 2:46 PM EST) Pathologist [facility] Phosphorus 8.2(H) 2.5 - 4.5 mg/dL 09/01/2024 3:52 PM EST [facility] Blood Structure of peripheral vein / Unknown Venipuncture / Unknown 09/01/2024 2:46 PM EST 09/01/2024 3:10 PM EST Tito Patricio MD LAB BLOOD ORDERABLES Final Resu lt Performing Organization Address [facility] de Phone Number [facility] [address] [place] [address], * (ABNORMAL) PTH, Intact (without Calcium) (09/01/2024 2:46 PM EST) Parathyroid Hormone, Intact 1488(H) 16 - 77 pg/mL 09/03/2024 7:22 AM EST [facility] Comment: Interpretive Guide ?Intact PTH ? Calcium [...] EST 09/01/2024 3:10 PM EST Narrative [facility] - 09/03/2024 7:22 AM EST [facility] Received Date: Tito Patricio MD LAB BLOOD ORDERABLES Final Resu lt [facility] 200 [facility] 3rd Floor, [place] [address], [place] [phone] [employer] [facility] 200 [facility] 3rd Floor, [place] [address], * (ABNORMAL) Creatinine (09/01/2024 2:46 PM EST) Creatinine 6.72(H) 0.50 - 1.20 mg/dL 09/01/2024 3:52 PM EST [facility] eGFR 7(L) >=60 mL/min/1 .73m2 09/01/2024 3:52 PM EST [facility] Comment:The estimated glomer ular [...] ORDERABLES Final Resu lt Performing Organization Address City/[facility]/ZIP Co de Phone Number [facility] [address] [place] [address], * (ABNORMAL) Calcium (09/01/2024 2:46 PM EST) Calcium 8.1(L) 8.6 - 10.5 mg/dL 09/01/2024 3:52 PM EST [facility] Blood Structure of peripheral vein / Unknown Venipuncture / Unknown 09/01/2024 2:46 PM EST 09/01/2024 3:10 PM EST us Tito Patricio MD LAB BLOOD ORDERABLES Final Resu lt Performing Organization Address City/[facility]/ZIP Co de Phone Number [facility] [address] [place] [address], * Bilirubin, Direct (09/01/2024 2:46 PM EST) Bilirubin, Direct <0.1 <=0.4 mg/dL 09/01/2024 3:54 PM EST [facility] Blood Structure of peripheral vein / Unknown Venipuncture / Unknown 09/01/2024 2:46 PM EST 09/01/2024 3:10 PM EST us Tito Patricio MD LAB BLOOD ORDERABLES Final Resu lt Performing Organization Address [facility] Co de Phone Number [facility] [address] [place] [address] * (ABNORMAL) Bilirubin, Total (09/01/2024 2:46 PM EST) Bilirubin, Total <0.2(L) 0.2 - 1.2 mg/dL 09/01/2024 3:54 PM EST [facility] [facility] Blood Structure of peripheral vein / Unknown Venipuncture / Unknown 09/01/2024 2:46 PM EST 09/01/2024 3:10 PM EST Tito Patricio MD LAB BLOOD ORDERABLES Final Resu lt Performing Organization Address [facility] Co de Phone Number [facility] [address] [place] [address] * Albumin (09/01/2024 2:46 PM EST) Albumin 4.0 3.5 - 5.2 g/dL 09/01/2024 3:52 PM EST [facility] Blood Structure of peripheral vein / Unknown Venipuncture / Unknown 09/01/2024 2:46 PM EST 09/01/2024 3:10 PM EST Tito Patricio MD LAB BLOOD ORDERABLES Final Resu lt Performing Organization Address City/[facility]/ZIP Co de Phone Number [facility] [address] [place] [address], from Last [address] [place] [address] [facility] Care Teams Emergency Doctor Relationship Specialty Start Date End Date Emanuel Scruggs [address] [place] [id number] PCP - General 03/22/17
--- OUTSIDE RECORDS SUMMARY | 2024-10-22 11:40 | XMS_ITS | Encounter Summary ---
Author Organization [facility] Address [address] [place] [address] Care Team Providers Care Construction Accountant Name Role Phone Emanuel Scruggs Primary Care Provider [phone] Encounter Details Date Type Department Care Team (Late st Contact Info) Description 10/08/2024 Telephone [facility] Transplant Department [address] [place], [place] [phone] Kimber Fallon RN [address] [place] [address] Social History Tobacco Use Types Packs/Day Years [...] PM EST No Authorization is required call [facility] [phone] spoke with Isabela Doherty Ref#[id number] documented in this encounter Plan of Treatment Not on file documented as of this encounter Visit Diagnoses Not on filedocumented in this encounter Care Teams Construction Accountant Relationship Specialty Start Date End Date Eamnuel Scruggs [address] [place], [place] [phone] PCP - General 03/22/17 documented as of this encounter
--- OUTSIDE RECORDS SUMMARY | 2024-10-22 11:40 | XMS_ITS | Encounter Summary ---
Author Organization [facility] Address [address] [place] [address] Care Team Providers Care Nursing Tech Name Role Phone Emanuel Scruggs Primary Care Provider [phone] Encounter Details Date Type Department Care Team (Late st Contact Info) Description 09/23/2024 Telephone [facility] Transplant Department [address] [place] [address] [phone] Kimber Fallon RN [address] [place] [address] Social History Tobacco Use Types Packs/Day Years [...] on filedocumented in this encounter Care Teams Nursing Tech Relationship Specialty Start Date End Date Emanuel Scruggs [address] [place] [id number] PCP - General 03/22/17 documented as of this encounter
--- OUTSIDE RECORDS SUMMARY | 2024-10-22 11:40 | XMS_ITS | Encounter Summary ---
Author Organization [facility] Address [address] [place] [address] Care Team Providers Care Efficiency Manager Name Role Phone Emanuel Scruggs Primary Care Provider [phone] Reason for Referral * MRI/CAT/PET Scan (Routine) - Closed Specialty Diagnoses / Procedures Referred By Contac t Referred To Contact Radiology Diagnoses Renovascular hypertension Procedures CT Abdomen Pelvis without Contrast Tito Patricio MD [address] [place] [address] Phone: tel: fax: Referral ID Status Reason Start Date Expiration Date Visits Re quested Visits Authorized [id number] Closed 10/01/2024 04/02/2026 1 1 * Cardiac Diagnostic [...] DOPPLER, COLOR AND CONTRAST Tito Patricio MD [address] [place] [address] Phone: tel: fax: Referral ID Status Reason Start Date Expiration Date Visits Re quested Visits Authorized [id number] Closed 10/01/2024 04/02/2026 1 1 Encounter Details Date Type Department Care Team (Late st Contact Info) Description 10/01/2024 Orders Only [facility] Transplant Department [address] [place] [address] Tito Patricio MD [address] [place] [address] Renovascular hypertension (Primary Dx) Social History Tobacco [...] unspecified documented in this encounter Care Teams Efficiency Manager Relationship Specialty Start Date End Date Emanuel Scruggs [address] [place] [id number] PCP - General 03/22/17 documented as of this encounter
--- OUTSIDE RECORDS SUMMARY | 2024-10-22 11:40 | XMS_ITS ---
Author Organization [facility] Address [address] [place] [address] Care Team Providers Care Imaging Account Manager Name Role Phone Emanuel Scruggs Primary Care Provider [phone] Transplant Episode Kidney Candidate [facility] ([place], [place]) - [facility] Evaluation began on 09/01/2024 Marked as Active on 09/01/2024 Kidney CoordinatorKimber Fallon RN Fax: N/A Email: N/A Scores Score Value Updated Exceptions/Reas ons CPRA Not available EPTS (Calc) 27 10/22/2024 [facility] Diagnosis Organ Primary Contributory Kidney Hypertensive Nephrosclerosis Care Team Name Role Phone Fax Email Kimber Fallon RN Kidney Coordinator [phone] N/A N/A Danis Betancur Referring Physician [phone] N/A Events Pre-Transplant Referred: 07/07/2024 Evaluation began: 09/01/2024
--- OUTSIDE RECORDS SUMMARY | 2024-10-22 11:40 | XMS_ITS | Clinical Summary ---
Author Organization [facility] Address [address] [place] [address] Care Team Providers Care Qc Analyst Name Role Phone Mary Garcia LISA Primary Care Provider [phone] Allergies Active Allergy Reactions Criticality Noted Date [...] in the evening. Active ergocalciferol 1.25 MG (09967 UT) capsule Take 1 capsule by mouth [...] (#1) 2024 Insurance [employer] [id number] [facility] [place] [id number] Care Teams Qc Analyst Relationship Specialty Start Date End Date Mary Garcia FNP [address] [place] [address] PCP - General 06/19/22
--- OUTSIDE RECORDS SUMMARY | 2024-10-22 11:40 | XMS_ITS | Clinical Summary ---
Author Organization [facility] Address [address] [place] [address] Care Team Providers Care Summer Child Caregiver Name Role Phone Emanuel Scruggs Primary Care Provider [phone] Allergies Active Allergy Reactions Criticality Noted Date [...] Type Department Care Team Description 10/08/2024 Telephone [facility] Transplant Department [address] [place] [address] Kimbre Fallon RN 10/01/2024 Orders Only [facility] Transplant Department [address] [place] [address] Tito Patricio MD Renovascular hypertension (Primary Dx) 09/23/2024 Telephone [facility] Transplant Department [address] [place] [address] Kimber Fallon RN 09/19/2024 Telephone [facility] Transplant Department [address] [place] [phone] Kimber Fallon, LEROY 09/01/2024 2:35 PM EST Lab [facility] Frederic Lab Draw Site [address] [place] [address] Pre-transplant evaluation for kidney transplant; Stage 4 chronic kidney disease (HCC) 09/01/2024 1:45 PM EST Social Work [facility] Renal Transplant [address] [place] [address] Thomas Freeman 09/01/2024 1:00 PM EST Office Visit [facility] Renal Transplant [address] [place] [address] Devante Juarez MD Heher, Eliot C, MD Pre-transplant evaluation for kidney transplant (Primary Dx); Chronic kidney disease, stage V (HCC) 09/01/2024 11:45 AM EST Evaluation [facility] Renal Transplant [address] [place] [address] Kimber Fallon RN Pre-transplant evaluation for kidney transplant (Primary Dx) 09/01/2024 11:15 AM EST Office Visit [facility] Renal Transplant [address] [place] [phone] Karen Madrigal RN Pre-transplant evaluation for kidney transplant (Primary Dx) 09/01/2024 Orders Only [facility] Transplant Department [address] [place] [phone] Kimber Fallon RN Pre-transplant evaluation for kidney transplant (Primary Dx); Stage 4 chronic kidney disease (HCC) 08/28/2024 Telephone [facility] Transplant Department [address] [place] [address] Kimber Fallon RN from Last 3 Months [...] Pediat wiliam (0-5 Years) and At-Risk Patients (6-50 Years) (1 of 2 - PCV) 1971 Urine Microalbumin 1975 Hepatitis B Vaccines (1 of 3 - 19+ 3-dose series) 02/1984 Pneumococcal Vaccine: 50+ Years (1 of 2 - PCV) 984 DTaP,Tdap,and Td Vaccines (1 - Tdap) 1987 [...] Screening Completed 09/01/2024 Procedures * Due to [place] state law, this organization might not be [...] kidney disease (HCC) QUANTIFERON-TB GOLD PLUS, 1 [id number] Routine 09/01/2024 2:46 PM EST Pre-transplant evaluation for kidney transplant Stage 4 chronic kidney disease (HCC) RPR (DIAGNOSIS) W/REFLEX TO TITER & TPPA [id number] Routine 09/01/2024 2:46 PM EST Pre-transplant evaluation for kidney transplant Stage 4 chronic kidney disease (HCC) VARICELLA ZOSTER ANTIBODY, IGG Routine 09/01/2024 2:46 PM EST Pre-transplant evaluation for kidney transplant Stage 4 chronic kidney disease (HCC) HLA TRANSPLANT WORK-UP (ALLELE LEVEL A/B/C/DRB1/JGQ920/DQA1/ DQB1/DPA1/DPB1) Routine 09/01/2024 2:46 PM EST Pre-transplant [...] Last 3 Months Results * Due to [place] state law, this organization might not be sharing negative HIV tests. * HLA Transplan Work-Up(Allele Level A/B/C/DRB1/GXY250/DQA1/DQB1/DPA1/DPB1) (09/01/2024 2:46 PM EST) Histocompatibility Laboratory Information See Below 09/08/2024 4:42 PM EST [facility] Comment: SONYA: ??[id number] ?Director: ??Arabella Garcia MD. [facility] PFI: ??[id number] UNOS: ??[id number] This test [...] DATA NOT REPORTED 09/08/2024 4:42 PM EST [employer] [facility] DRB1-2 NMDP DATA NOT REPORTED 09/08/2024 4:42 PM EST [facility] [employer] [facility] Blood Structure of peripheral vein / Unknown Venipuncture / Unknown 09/01/2024 2:46 PM EST 09/01/2024 3:08 PM EST us Tito Patricio MD HLA LAB ORDERABLES Edited Resul t - Final [facility] [address] [facility] Rm: [id number] [place] [address], * MMR Panel, IgG (09/01/2024 2:46 PM EST) Measles Antibody (IgG), Immune Status 122.00 AU/mL 09/02/2024 4:42 AM EST [employer] Comment: AU/mL ?Interpretation ----- ? <13.50 ? Not consistent with immunity 13.50-16.49 ?Equivocal >16.49 ? Consistent with immunity The presence of measles IgG suggests immunization or past or current infection with measles virus. For additional information, please refer to http://education.OpenSearchServer/faq/ZPD738 (This link is being provided for informational/ educational purposes only.) Mumps Antibody (IgG), Immune Status 11.90 AU/mL 09/02/2024 4:42 AM EST [facility] Comment: AU/mL ? Interpretation ------- ? <9.00 ? Not consistent with immunity 9.00-10.99 ?Equivocal >10.99 ?Consistent with immunity The presence of mumps IgG antibody suggests immunization or past or current infection with mumps virus. Rubella Antibody (IgG), Immune Status 6.46 Index 09/02/2024 4:42 AM EST [facility] Comment: ?Index ?Interpretation ?----- ?<0.90 ?Not consistent with immunity ?0.90-0.99 ?Equivocal ?> or = 1.00 ?Consistent with immunity The presence of rubella IgG antibody suggests immunization or past or current infection with rubella virus. Blood Structure of peripheral vein / Unknown Venipuncture / Unknown 09/01/2024 2:46 PM EST 09/01/2024 3:07 PM EST [facility]AN [place] - 09/02/2024 4:42 AM EST [facility] Received Date: us Tito Patricio MD LAB BLOOD ORDERABLES Final Resu lt [place] [place] [address] [facility] 3[address] Floor, [place] [address], [facility] [address] [facility] [address] Floor, [place] [address], * (ABNORMAL) Herpes Simplex Virus 1&2, IgG (09/01/2024 2:46 PM EST) HSV 1 IgG Type Specific Ab 38.20(H) index 09/02/2024 5:38 PM EST [facility] HSV 2 IgG Type Specific Ab 14.50(H) index 09/02/2024 5:38 PM EST [facility] Comment: ?Index ?Interpretation ?----- ?<0.90 ?Negative ?0.90-1.09 [...] screening. For additional information, please refer to http://education.Joppel.Cumulus Funding/faq/OLH183 (This link is being provided for informational/ educational purposes only.) ?? Blood Structure of peripheral vein / Unknown Venipuncture / Unknown 09/01/2024 2:46 PM EST 09/01/2024 3:07 PM EST Narrative [facility] [place] - 09/02/2024 5:38 PM EST [facility] Received Date: us Tito Patricio MD LAB BLOOD ORDERABLES Final Resu lt [place]AN [place] [address], [place] [address], [place] [phone] [facility] [address], [place] [address], [place] [phone] * RPR (Diagnosis) w/Reflex to Titer & TPPA Confirm (09/01/2024 2:46 PM EST) Pathologist [facility] RPR W/Refl Titer NON-REACT MIKE NON-REACT MIKE 09/04/2024 12:24 PM EST [facility] Blood Structure of peripheral vein / Unknown Venipuncture / Unknown 09/01/2024 2:46 PM EST 09/01/2024 3:07 PM EST Narrative [facility] [place] - 09/04/2024 12:24 PM EST [facility] Received Date: Tito Patricio MD LAB BLOOD ORDERABLES Final Resu lt [address] Floor, [place] [address], [facility] [address] [facility] 3[address], [place] [address], * QuantiFERON-TB Gold Plus, 1 Tube (09/01/2024 2:46 PM EST) [facility] QuantiFERON-TB Gold Plus NEGATIVE NEGATIVE 09/04/2024 4:11 PM EST [facility] Comment: Negative test result. M. tuberculosis complex infection unlikely. NIL 0.05 IU/mL 09/04/2024 4:11 PM EST [facility] Mitogen-NIL 7.77 IU/mL 09/04/2024 4:11 PM EST [facility] TB1-NIL 0.05 IU/mL 09/04/2024 4:11 PM EST [facility] TB2-NIL 0.05 IU/mL 09/04/2024 4:11 PM EST [facility] Comment: The Nil tube value reflects the [...] T-lymphocytes. For additional information, please refer to https://education.Bubble & Balm/faq/PRG395 (This link is being provided for informational/ educational purposes only.) Blood Structure of peripheral vein / Unknown Venipuncture / Unknown 09/01/2024 2:46 PM EST 09/01/2024 3:06 PM EST Narrative [facility] [place] - 09/04/2024 4:11 PM EST [facility] Received Date: Tito Patricio MD LAB BLOOD ORDERABLES Final Resu lt [facility] [address] [facility] [address], [place] [address], [place] [phone] [facility] [address] [facility] [address], [place] [address], * (ABNORMAL) CBC Auto Differential (09/01/2024 2:46 PM EST) WBC 6.2 3.8 - 10.8 10*3/uL 09/01/2024 3:19 PM EST [facility] [place] [employer] [facility] [facility] RBC 2.28(L) 3.80 - 5.10 10*6/uL 09/01/2024 3:19 PM EST [facility] [place] [facility] [employer] [facility] Hemoglobin 6.6(LL) 11.7 - 15.5 g/dL 09/01/2024 3:19 PM EST [facility] [employer] CL[facility]ICAL PATHOLOG[facility] LABORATORY Hematocrit 22.3(L) 35.0 - 45.0 % 09/01/2024 3:19 PM EST [facility] [employer] [facility] LAB[facility] MCV 97.8 80.0 - [...] - 0.95 10*3/uL 09/01/2024 3:19 PM EST [facility] [employer] [facility] Eosinophil # 0.10 0.02 - 0.50 10*3/uL 09/01/2024 3:19 PM EST [facility] [place] [facility] [employer] [facility] Basophil # <0.03 0.00 - 0.20 10*3/uL 09/01/2024 3:19 PM EST [facility] [employer] [facility] nRBC % 0.0 /100 WBCs 09/01/2024 3:19 PM EST [facility] [place] [facility] [employer] [facility] nRBC # <0.01 <0.01 10*3/uL 09/01/2024 3:19 PM EST [facility] LAB[facility] Blood Structure of peripheral vein / Unknown Venipuncture / Unknown 09/01/2024 2:46 PM EST 09/01/2024 3:10 PM EST us Tito Patricio MD LAB BLOOD ORDERABLES Final Resu lt [facility] [employer] [facility] [address] [place] [address], * (ABNORMAL) Erick-Pierre Virus VCA Antibody Panel (09/01/2024 2:46 PM EST) EBV Viral Capsid Ag Ab (IGM) <36.00 U/mL 09/02/2024 11:27 AM [facility] Comment: ?U/mL ?Interpretation ?---- ?<36.00 ?Negative ?36.00-43.99 ? Equivocal ?>43.99 ?Positive EBV Viral Capsid Ag Ab (IGG) >750.00(H) U/mL 09/02/2024 11:27 AM [facility] Comment: ? U/mL ? Interpretation ? ---- ? <18.00 ? Negative ? 18.00-21.99 ?Equivocal ? >21.99 ? Positive EBV Nuclear Ag Ab <18.00 U/mL 024 11:27 AM EST [employer] [facility] Comment: ? U/mL ? Interpretation ? ---- ? <18.00 ? Negative ? 18.00-21.99 ?Equivocal ? >21.99 ? Positive Interpretation: See Comments 09/02/2024 11:27 AM EST [facility] Comment: Results indicate infection with EBV, but the time since primary infection cannot be determined due to the absence of both VCA IgM and EBNA IgG. Suggest repeat testing in 2-3 weeks if clinically indicated. Blood Structure of peripheral vein / Unknown Venipuncture / Unknown 09/01/2024 2:46 PM EST 09/01/2024 3:10 PM EST Narrative [facility]JAN [place] - 09/02/2024 11:27 AM EST [employer] Received Date: us Tito Patricio MD LAB BLOOD ORDERABLES Final Resu lt [facility] [address], [place] [address], [place] [phone] [facility] [address], [place] [address], [place] [phone] * Hepatitis C Antibody w/Reflex to PCR (09/01/2024 2:46 PM EST) Hepatitis C Antibody NON-REACT MIKE NON-REACT MIKE 09/02/2024 7:23 AM EST [facility] Comment: HCV antibody was non-reactive. There is no laboratory evidence of HCV infection. In most cases, no further action is required. However, if recent HCV exposure is suspected, a test for HCV RNA (test code 47444) is suggested. For additional information please refer to http://ZALORA.Bubble & Balm/faq/UHM66p4 (This link is being provided for informational/ educational purposes only.) Blood Structure of peripheral vein / Unknown Venipuncture / Unknown 09/01/2024 2:46 PM EST 09/01/2024 3:07 PM EST Narrative [facility] [place] - 09/02/2024 7:23 AM EST [facility] Received Date: Tito Patricio MD LAB BLOOD ORDERABLES Final Resu lt [facility] [address] [facility] 3[address], [place] [address], [facility] [address] [facility] [address], [place] [address], * (ABNORMAL) Hepatitis A Antibody, Total (09/01/2024 2:46 PM EST) Hepatitis A Ab, Total REACTIVE( A) NON-REACT MIKE 09/02/2024 7:18 AM EST [facility] Comment: For additional information, please refer to http://ZALORA.Bubble & Balm/faq/RUN282 (This link is being provided for informational/ educational purposes only.) Blood Structure of peripheral vein / Unknown Venipuncture / Unknown 09/01/2024 2:46 PM EST 09/01/2024 3:10 PM EST Narrative [facility] [place] - 09/02/2024 7:18 AM EST [facility] Received Date:[id number] us Tito Patricio MD LAB BLOOD ORDERABLES Final Resu lt Performing Organization Address City/[facility]/ZIP Co de Phone Number DEJAN [place]ALVE[facility] [address], [place] [address], [place] [phone] [facility] [address], [place] [address], [place] [phone] * Hepatitis B Core Antibody, Total (09/01/2024 2:46 PM EST) Hepatitis B Core Ab Total NON-REACT MIKE NON-REACT MIKE 09/02/2024 5:13 PM EST [facility] Comment: For additional information, please refer to http://education.Bubble & Balm/faq/CRQ801 (This link is being provided for informational/ educational purposes only.) Blood Structure of peripheral vein / Unknown Venipuncture / Unknown 09/01/2024 2:46 PM EST 09/01/2024 3:07 PM EST Narrative DEJAN [place] - 09/02/2024 5:13 PM EST [facility] Received Date:[id number] us Tito Patricio MD LAB BLOOD ORDERABLES Final Resu lt DEJAN [place] [address], [place] [address], [place] [phone] [facility] [address], [place] [address], [place] [phone] * ABO/Rh Blood Type (09/01/2024 2:46 PM EST) ABO Blood Type A 09/01/2024 4:03 PM EST [facility] RH Type Positive 09/01/2024 4:03 PM EST [facility] Blood Structure of peripheral vein / Unknown Venipuncture / Unknown 09/01/2024 2:46 PM EST 09/01/2024 3:11 PM EST us Tito Patricio MD LAB BLOOD BANK TEST ORDERABLES Final Result Performing Organization Address [facility]/ZIP Co de Phone Number [facility] [address] [place] [address], [place] [phone] * Hepatitis B Surface Antibody (09/01/2024 2:46 PM EST) Hepatitis B Surface Ab Immunity, Qn 96 > OR = 10 mIU/mL 09/02/2024 6:38 AM EST [facility] Comment: PATIENT HAS IMMUNITY TO HEPATITIS B VIRUS. For additional information, please refer to http://ZALORA.Bubble & Balm/faq/ZGY150 (This link is being provided for informational/ educational purposes only). Blood Structure of peripheral vein / Unknown Venipuncture / Unknown 09/01/2024 2:46 PM EST 09/01/2024 3:10 PM EST Narrative [facility] [place] - 09/02/2024 6:38 AM EST [facility] Received Date:[id number] us Tito Patricio MD LAB BLOOD ORDERABLES Final Resu lt Performing Organization Address City/[facility] Co de Phone Number DEJAN [facility] [address] [facility] [address] [facility], [place] [address], [place] [phone] [facility] [address], [place] [address], [place] [phone] * Hepatitis B Surface Antigen w/Confirmation (09/01/2024 2:46 PM EST) Hepatitis B Surface Antigen NON-REACT MIKE NON-REACT MIKE 09/02/2024 6:01 AM EST [facility] Comment: For additional information, please refer to http://ZALORA.Bubble & Balm/faq/IDU914 (This link is being provided for informational/ educational purposes only.) Blood Structure of peripheral vein / Unknown Venipuncture / Unknown 09/01/2024 2:46 PM EST 09/01/2024 3:07 PM EST Narrative DEJAN [place] - 09/02/2024 6:01 AM EST [facility] Received Date: Tito Patricio MD LAB BLOOD ORDERABLES Final Resu lt DEJAN [place] [address] [facility] [address], [place] [address], [facility] [address] [facility] [address], [place] [address], * (ABNORMAL) Cytomegalovirus Antibody, IgG (09/01/2024 2:46 PM EST) Cytomegalovirus Antibody (IgG) >10.00(H ) U/mL 09/02/2024 4:42 AM EST [facility] Comment: ? U/mL ? Interpretation ? ----- [...] LAB BLOOD ORDERABLES Final Resu lt [place]AN [place] [address] [facility] [address], [place] [address], [place] [phone] [facility] [address] [facility] [address], [place] [address], [place] [phone] * PTT (09/01/2024 2:46 PM EST) aPTT 26.8 23.0 - 32.0 Seconds 09/01/2024 3:27 PM EST [facility] [employer] [facility] Comment: Current PTT reagent is not sensitive to detect all Lupus Anticoagulant (LA) Inhibitor Cases. ?? If a LA is suspected, please order a Lupus Anticoagulation w/ Reflex Test which is performed at [facility] in [place], [place]. Blood Structure of peripheral vein / Unknown Venipuncture / Unknown 09/01/2024 2:46 PM EST 09/01/2024 3:07 PM EST Tito Patricio MD LAB BLOOD ORDERABLES Final Resu lt [facility] [address] [place] [address], * Protime-INR (09/01/2024 2:46 PM EST) PT 10.0 9.6 - 12.4 Seconds 09/01/2024 3:27 PM EST [facility] [employer] [facility] LAB[facility] INR 0.9 0.9 - 1.1 09/01/2024 3:27 PM EST [facility] [employer] [facility] Comment:The optimal therapeu tic INR range for patients treated with Vitamin K antagonists (VKAS, e.g., Warfarin) is 2.0 to 3.5. Discuss the desired range with your doctor/care team. Blood Structure of peripheral vein / Unknown Venipuncture / Unknown 09/01/2024 2:46 PM EST 09/01/2024 3:07 PM EST Tito Patricio MD LAB BLOOD ORDERABLES Final Resu lt [email or web address] [address] [place] [address], * Varicella Zoster Antibody, IgG (09/01/2024 2:46 PM EST) Varicella Zoster Virus Antibody 26.10 S/CO 09/02/2024 5:29 PM EST [facility] Comment: ?Signal to Cut-off ? S/CO ?Interpretation [...] EST 09/01/2024 3:07 PM EST Narrative [facility] 09/02/2024 5:29 PM EST [facility] Received Date: us Tito Patricio MD LAB BLOOD ORDERABLES Final Resu lt [facility] [address] [facility] [address], [place] [address], [place] [phone] [facility] [address] [facility] [address], [place] [address], [place] [phone] * (ABNORMAL) BUN (09/01/2024 2:46 PM EST) BUN 87(H) 7 - 23 mg/dL 09/01/2024 3:52 PM EST [facility] [employer] [facility] Blood Structure of peripheral vein / Unknown Venipuncture / Unknown 09/01/2024 2:46 PM EST 09/01/2024 3:10 PM EST us Tito Patricio MD LAB BLOOD ORDERABLES Final Resu lt Performing Organization Address City/[facility]/ZIP Co de Phone Number [facility] [employer] [facility] [address] [place] [phone], [place] * ALT (09/01/2024 2:46 PM EST) ALT 10 10 - 40 U/L 09/01/2024 3:52 PM EST [facility] [employer] [facility] Blood Structure of peripheral vein / Unknown Venipuncture / Unknown 09/01/2024 2:46 PM EST 09/01/2024 3:10 PM EST us Tito Patricio MD LAB BLOOD ORDERABLES Final Resu lt Performing Organization Address City/[facility]/ZIP Co de Phone Number [facility] [employer] [facility] [address] [place] [address], [place] * AST (09/01/2024 2:46 PM EST) AST 12 10 - 40 U/L 09/01/2024 3:52 PM EST [facility] [employer] [facility] Blood Structure of peripheral vein / Unknown Venipuncture / Unknown 09/01/2024 2:46 PM EST 09/01/2024 3:10 PM EST Tito Patricio MD LAB BLOOD ORDERABLES Final Resu lt Performing Organization Address [facility] de Phone Number [facility] CL[facility] LABORATORY [address] [place] [address] * (ABNORMAL) Phosphorus (09/01/2024 2:46 PM EST) Pathologist [facility] Phosphorus 8.2(H) 2.5 - 4.5 mg/dL 09/01/2024 3:52 PM EST [facility] PATHOLOGY LABORATORY Blood Structure of peripheral vein / Unknown Venipuncture / Unknown 09/01/2024 2:46 PM EST 09/01/2024 3:10 PM EST Tito Patricio MD LAB BLOOD ORDERABLES Final Resu lt Performing Organization Address [facility] de Phone Number [facility] CL[facility]ICAL PATHOLOGY LABORATORY [address] [place] [address] * (ABNORMAL) PTH, Intact (without Calcium) (09/01/2024 2:46 PM EST) Parathyroid Hormone, Intact 1488(H) 16 - 77 pg/mL 09/03/2024 7:22 AM EST [employer] [facility] Comment: Interpretive Guide ?Intact PTH ? Calcium [...] MD LAB BLOOD ORDERABLES Final Resu lt [address], [place] [address], [facility] [address], [place] [address], * (ABNORMAL) Creatinine (09/01/2024 2:46 PM EST) Creatinine 6.72(H) 0.50 - 1.20 mg/dL 09/01/2024 3:52 PM EST [facility] [employer] [facility] eGFR 7(L) >=60 mL/min/1 .73m2 09/01/2024 3:52 PM EST [facility] [employer] [facility] Comment:The estimated glomer ular filtration rate (eGFR) is calculated using a new formula developed by the NKF-ASN task force to eliminate race-based correction factors. The new formula uses serum/plasma creatinine, age, and gender to determine eGFR. A value below 60mls/min might indicate kidney disease and will be flagged. For additional information, see Makenzie romero al, Am J Kidney Dis. 2021;79(2):268- 288, A Unifying Approach for GFR estimation: Recommendations of the NKF-ASN Task Force on Reassessing the Inclusion of Race in Diagnosing Kidney Disease . Blood Structure of peripheral vein / Unknown Venipuncture / Unknown 09/01/2024 2:46 PM EST 09/01/2024 3:10 PM EST us Tito Patricio MD LAB BLOOD ORDERABLES Final Resu lt Performing Organization Address [facility]/ZIP Co de Phone Number [facility] [address] [place] [address], [place] * (ABNORMAL) Calcium (09/01/2024 2:46 PM EST) Calcium 8.1(L) 8.6 - 10.5 mg/dL 09/01/2024 3:52 PM EST [facility] [employer] [facility] LAB[facility]ORY Blood Structure of peripheral vein / Unknown Venipuncture / Unknown 09/01/2024 2:46 PM EST 09/01/2024 3:10 PM EST us Tito Patricio MD LAB BLOOD ORDERABLES Final Resu lt Performing Organization Address [facility] Co de Phone Number [facility] [address] [place] [address], [place] * Bilirubin, Direct (09/01/2024 2:46 PM EST) Bilirubin, Direct <0.1 <=0.4 mg/dL 09/01/2024 3:54 PM EST [facility] CLINICAL PATHOLOGY LABORATORY Blood Structure of peripheral vein / Unknown Venipuncture / Unknown 09/01/2024 2:46 PM EST 09/01/2024 3:10 PM EST us Tito Patricio MD LAB BLOOD ORDERABLES Final Resu lt Performing Organization Address [facility] Co de Phone Number [facility] [address] [place] [phone], [place] * (ABNORMAL) Bilirubin, Total (09/01/2024 2:46 PM EST) Bilirubin, Total <0.2(L) 0.2 - 1.2 mg/dL 09/01/2024 3:54 PM EST [facility] [employer] [facility] PATH[facility] LAB[facility] Blood Structure of peripheral vein / Unknown Venipuncture / Unknown 09/01/2024 2:46 PM EST 09/01/2024 3:10 PM EST Tito Patricio MD LAB BLOOD ORDERABLES Final Resu lt Performing Organization Address City/[facility]/ZIP Co de Phone Number [facility] [employer] [facility] PATHOLOG[facility] LABORATORY [address] * Albumin (09/01/2024 2:46 PM EST) Albumin 4.0 3.5 - 5.2 g/dL 09/01/2024 3:52 PM EST [facility] [employer] [facility] Blood Structure of peripheral vein / Unknown Venipuncture / Unknown 09/01/2024 2:46 PM EST 09/01/2024 3:10 PM EST Tito Patricio MD LAB BLOOD ORDERABLES Final Resu lt Performing Organization Address [facility] Co de Phone Number [facility] [employer] [facility] [address] [place] [address], from Last 3 Months Insurance [address] [place] [phone] [place] [address] [place] [id number] [place] [phone] [facility] Care Teams Summer Child Caregiver Relationship Specialty Start Date End Date Emanuel Scruggs [address] [place] [address] [id number] PCP - General 03/22/17
== END 2024-10-22 11:30 | disposition home or self-care (01) ==
PROVIDERS: PCP Internal Medicine; Visit Provider Internal Medicine Nephrology
DX: N18.9 Chronic kidney disease, unspecified (principal); D63.1 Anemia in chronic kidney disease; E87.20 Acidosis, unspecified; N18.5 Chronic kidney disease, stage 5
CPT/HCPCS: 99214

== ENCOUNTER → 2024-10-22 10:55 | Outpatient (BNVA) | payer OTHER, SELFPAY | PROVIDERS: PCP Internal Medicine; Visit Provider Internal Medicine Nephrology | DX: I12.0 Hypertensive chronic kidney disease with stage 5 chronic kidney disease or end stage renal disease (principal); N18.5 Chronic kidney disease, stage 5; D63.1 Anemia in chronic kidney disease; E87.20 Acidosis, unspecified | CPT/HCPCS: 96372; 99212; Q5106 ==

== ENCOUNTER 2024-11-04 10:16 | Outpatient (AMB) | payer OTHER, SELFPAY ==
--- NOTE | 2024-11-04 10:32 | A.OFFPC_ITS ---
Vital Signs 11/04/24 10:33 Height 5 ft 5 in Weight 169 lb BMI 28.1 BP 130/86 Blood Pressure Location Lt brachial Position Sitting Intake Visit Reasons: anemia, ckd Intake Note: Patient here for a follow up Anemia, CKD Fraud Prevention Analyst Required: No Accompanied by: Daughter Allergies Penicillins Allergy (Intermediate, Verified 11/04/24 10:51) RASH Medication List - Last Reconciled 11/04/24 by Britt De MD amlodipine (Norvasc) 10 mg PO DAILY 90 days atorvastatin 80 mg PO BEDTIME 90 days [bed rail As directed] blood pressure monitor As directed ferrous sulfate 325 mg PO BID Grab bar As directed [hand held shower As directed] metoprolol tartrate 50 mg See Protocol PO BID 90 days [pill box twice daily As directed] sevelamer HCl 800 mg PO TIDWM Shower Chair with back sitz bath As directed sitz bath As directed sodium bicarbonate 1,300 mg (2 x 650 mg) PO TID Tobacco use date assessed: 11/04/24 Dental Screening Dental Screen Date: 11/04/24 Did you have a dental visit in the last 12 months?: No Did you have a dental problem in the last 6 months where you did not have access to dental care?: No Was dental information given to patient?: Patient has dentist HPI HPI Comments History of Present Illness Details The patient is a 59-year-old female presenting with concerns surrounding her chronic kidney disease management and associated anemia. Her hemoglobin levels have fluctuated, previously demanding a transfusion in September when they dropped to 7.7 g/dL. Currently, her hemoglobin is 8.7 g/dL. Despite being advised to take oral iron, she struggles with gastrointestinal discomfort leading to poor adherence. Her renal issue has progressed to the stage where dialysis and potential kidney transplant are under consideration. She reports previous rectal bleeding associated with the identification of an adenomatous polyp during a colonoscopy in September but denies any current bleeding. Symptoms like nausea, vomiting, or diarrhea are not present. The patient has chronic comorbid conditions including hypertension and hyperlipidemia, managed with amlodipine 10 mg daily and atorvastatin, respectively. Also has atrial fibrillation on metoprolol. [facility], [facility] Medical History (Updated 11/04/24 @ 12:31 by Britt De MD) Acute on chronic kidney failure Secondary hyperparathyroidism (of renal origin) CKD (chronic kidney disease) stage 5, GFR less than 15 ml/min Essential hypertension History of colon polyps Anemia in chronic kidney disease (CKD) Anemia CKD (chronic kidney disease) Chronic systolic (congestive) heart failure Cardiomyopathy Normocytic anemia Surgical History Hx of colonoscopy History of surgery Status post dilation and curettage History of abdominal surgery History of extraction of renal calculus History of tubal ligation Family History Father Throat cancer Mother Hypertension Daughter In good health Daughter In good health Sister In good health Family/Other Breast cancer Social History Household Members: None Housing: Apartment Are you a primary administrator health care facility to a significant other at home: No Do you presently have visiting nurse or other home services: No Alcohol intake: never Comment: recent syncopal episode with blood loss Patient Tobacco Use Status: Former Tobacco user Tobacco use type: Cigarette Years Smoked: 30 +/- e-Cigarette/Vaping Use: Never Used Second Hand Smoke Exposure: No service: No Current occupational status: unemployed Cognitive needs: No Hearing needs: No Vision needs: No Questionnaire PHQ-9 Over the last 2 weeks, how often have you been bothered by any of the following problems? 1. Little interest or pleasure in doing things: more than half the days 2. Feeling down, depressed, or hopeless: several days 3. Trouble falling or staying asleep, or sleeping too much: several days 4. Feeling tired or having little energy: nearly every day 5. Poor appetite or overeating: not at all 6. Feeling bad about yourself - or that you are a failure or have let yourself or your family down: several days 7. Trouble concentrating on things, such as reading the newspaper or watching television: several days 8. Moving or speaking so slowly that other people could have noticed. Or the opposite - being so fidgety or restless that you have been moving around a lot more than usual: several days 9. Thoughts that you would be better off or of hurting yourself in some way: not at all Total score: 10 Depression Screening Interpretation: Positive Depression Screening Follow-up: Existing condition and Follow-up Visit Requested Depression Screening Done: Yes 89276 - PHQ-9 Billing: Yes Source: Developed by Drs. Tarun Fernandez, Ciarra Alfred, Mik Sands and colleagues, with an educational kevan from [employer]. Thrive Questionnaire Date Thrive assessed: 11/04/24 I am a: Patient What is your living situation today?: I have a steady place to live Within the past 12 months, did the food you bought not last and you didn't have the money to get more?: Never true Within the past 12 months, did you worry whether your food would run out before you got money to buy more?: Never true Do you have trouble paying for medicines?: No Do you have trouble getting transportation to medical appointments?: No Do you have trouble paying your heating and electricity bill?: No Do you have trouble taking care of your child, family member or friend?: No Do you have trouble with day-to-day activities such as bathing, preparing meals, shopping, managing finances, etc.?: Yes Are you currently unemployed and looking for a job?: No Are you interested in more education?: No Please select the resources that you would like help with: None Currently or been in a relationship where the following occur: No concerns reported THRIVE Score: 0 AUDIT C Alcohol Use Questionnaire (AUDIT-C) 1. How often do you have a drink containing alcohol?: Never Total Score: 0 Score Reviewed/Action Taken: No PAUL-7 AMB Questionnaire PAUL-7 Date PAUL - 7 assessed: 11/04/24 Feeling nervous, anxious, or on edge: 0 = Not at all Not being able to stop or control worryin = Not at all Worrying too much about different things: 1 = Several days Trouble relaxin = Several days Being so restless that it is hard to sit still: 0 = Not at all Becoming easily annoyed or irritable: 1 = Several days Feeling afraid as if something awful might happen: 0 = Not at all Total PAUL-7 score (0-4 normal; 5-9 mild; 10-14 moderate; 15-21 severe): 3 Source: Developed by Drs. Tarun Fernandez, Mik Vaca and colleagues, with an educational kevan from [employer]. PAUL-7 Assessment Billing PAUL-7 Assessment Tool: PAUL-7 Assessment 09239 Review of Systems Const All systems reviewed & are unremarkable except as noted in HPI and below Card Denies chest pain at rest, Denies chest pain with activity, Denies edema, Denies irregular heart rhythm, Denies claudication, Denies dyspnea, Denies dyspnea on exertion, Denies orthopnea, Denies paroxysmal nocturnal dyspnea and Denies slow heart rate Resp Denies cough, Denies dyspnea and Denies dyspnea on exertion GI Denies abdominal pain, Denies change in bowel habits, Denies excessive flatus, Denies nausea and Denies vomiting Denies urinary incontinence, Denies urinary hesitancy and Denies urinary urgency Physical exam (Primary Care) Vital Signs: Last Vital Signs BP 130/86 11/04/24 10:33 BMI result Body Mass Index 28.1 Tobacco/Smoking Status: Tobacco use Status Tobacco use date assessed 11/04/24 11/04/24 10:38 Patient Tobacco Use Status Former Tobacco user 11/04/24 10:36 Tobacco use type Cigarette 11/04/24 10:36 e-Cigarette/Vaping Use Never Used 11/04/24 10:36 PHQ-9: PHQ-9 Score PHQ-9: Total score 10 11/04/24 10:54 Depression Screening Interpretation: Positive Depression Screening Follow-up: Existing condition and Follow-up Visit Requested Thrive Assessment: Date of Thrive Assessment Date Thrive assessed 11/04/24 11/04/24 10:36 Currently or been in a relationship where the following occur: No concerns reported Resp Effort & Inspection: normal respiratory effort Auscultation: clear to auscultation bilaterally Cardio Jugular venous distension: no JVD Rate: regular rate Rhythm: regular rhythm Heart sounds: S1 normal heart sound present and S2 normal heart sound present Extrem General: Yes full ROM Coding Level of Care Code Est Pt Level 4 (84726) Complex EM visit Add On G2211 Diagnoses Anemia due to stage 5 chronic kidney disease, not on chronic dialysis N18.5; D63.1 Chronic kidney disease stage: stage 5 (GFR < 15), not on chronic dialysis Essential hypertension I10 CKD (chronic kidney disease) stage 5, GFR less than 15 ml/min N18.5 Atrial fibrillation with rapid ventricular response I48.91 Additional Codes PAUL-7 Assessment Billing - PAUL-7 Assessment Tool: PAUL-7 Assessment [id number] ([id number]) PHQ-9 - 85386 - PHQ-9 Billing: Yes ([id number]) Time Spent (min) 23 Assessment & Plan Assessment & Plan (1) Anemia due to chronic kidney disease: Code(s): N18.9 - Chronic kidney disease, unspecified; D63.1 - Anemia in chronic kidney disease Category: Medical Qualifiers: Chronic kidney disease stage: stage 5 (GFR < 15), not on chronic dial ysis Qualified Code(s): N18.5 - Chronic kidney disease, stage 5; D63.1 - Anemia in chronic kidney disease (2) Essential hypertension: Code(s): I10 - Essential (primary) hypertension Category: Medical (3) CKD (chronic kidney disease) stage 5, GFR less than 15 ml/min: Code(s): N18.5 - Chronic kidney disease, stage 5 Category: Medical (4) Atrial fibrillation with rapid ventricular response: Code(s): I48.91 - Unspecified atrial fibrillation Category: Medical Plan The patient's iron deficiency anemia will continue to be managed with iron supplementation, and her hemoglobin levels will be monitored. Future evaluation includes potential dialysis and renal transplant consideration for her chronic kidney disease. Effective control of her hypertension and hyperlipidemia with existing antihypertensive and statin therapy will be maintained. Follow-up laboratory results and further assessments in four months will guide subsequent treatment decisions. Gastrointestinal symptoms will be addressed as part of ongoing management. Patient was informed and verbally consented to the use of an ambient scribe for clinic note documentation during this visit. During our discussion, I emphasized the importance of adherence to her iron supplementation to prevent further decreases in hemoglobin levels and potential transfusion requirements. We reviewed her current condition and the necessity of preparing for dialysis, scheduled following her forthcoming evaluation. We considered kidney transplant as a future option and agreed on ensuring her readiness for dialysis processes. We addressed the adverse gastrointestinal effects of her medications and proposed alternative management strategies if her symptoms persist. Follow-up labs in four months will guide future clinical directions. Ensuring strict blood pressure and lipid management was highlighted as crucial to her overall health. The patient was informed of the potential risks of non-compliance with her iron therapy including recurrent anemia and its complications. Orders: Orders IRON PROFILE 4 Months D64.9 - Anemia, unspecified Vitamin B12 and Folate 4 Months E53.8 - Deficiency of other specified B group vitamins Lipid Panel 4 Months E78.5 - Hyperlipidemia, unspecified Complete Blood Count Auto Diff 4 Months D64.9 - Anemia, unspecified Vitamin D 25-OH Total 4 Months E55.9 - Vitamin D deficiency, unspecified Comprehensive [place]. Panel Fast 4 Months N18.5 - Chronic kidney disease, stage 5 Medications: New simethicone (Gas Relief (simethicone)) 180 mg PO BID PRN 60 caps 0RF abdominal distention 30 days Patient Instructions: - Continue taking iron supplements as prescribed to improve anemia. - Attend scheduled dialysis consultation for further management of kidney disease. - Monitor blood pressure regularly and adhere to antihypertensive medication. - Maintain current medications for cholesterol management. - Report any new or worsening symptoms promptly. - Return for follow-up lab tests in four months. - Seek medical care if experiencing severe gastrointestinal discomfort or symptoms of low hemoglobin.
[2024-11-04 10:33] VITALS: BP 130/86; BMI 28.1
--- OUTSIDE RECORDS SUMMARY | 2024-11-04 12:25 | XMS_ITS | Clinical Summary ---
Author Organization [facility] Address [address] [place] [address] Care Team Providers Care Title 1 Tutor Name Role Phone Emanuel Scruggs Primary Care Provider [phone] Allergies Active Allergy Reactions Criticality Noted Date [...] Type Department Care Team Description 10/08/2024 Telephone [facility] Transplant Department [address] [place] [address] Kimber Fallon RN 10/01/2024 Orders Only [facility] [address] [place] [address] Tito Patricio MD Renovascular hypertension (Primary Dx) 09/23/2024 Telephone [facility] [address] [place] [address] Kimber Fallon RN 09/19/2024 Telephone [facility] [address] [place] [address] Kimber Fallon, LEROY 09/01/2024 2:35 PM EST Lab [facility] Draw Site [address] [place] [address] Pre-transplant evaluation for kidney transplant; Stage 4 chronic kidney disease (HCC) 09/01/2024 1:45 PM EST Social Work [facility] Renal Transplant [address] [place] [address] Thomas Freeman 09/01/2024 1:00 PM EST Office Visit [facility] [address] [place] [address] Devante Juarez MD Heher, Eliot C, MD Pre-transplant evaluation for kidney transplant (Primary Dx); Chronic kidney disease, stage V (HCC) 09/01/2024 11:45 AM EST Evaluation [facility] [address] [place] [address] Kimber Fallon RN Pre-transplant evaluation for kidney transplant (Primary Dx) 09/01/2024 11:15 AM EST Office Visit [facility] [address] [place] [address] Karen Madrigal RN Pre-transplant evaluation for kidney transplant (Primary Dx) 09/01/2024 Orders Only [facility] Trans[facility] Department [address] [place] [address] Kimber Fallon RN Pre-transplant evaluation for kidney transplant (Primary Dx); Stage 4 chronic kidney disease (HCC) 08/28/2024 Telephone [facility] Trans[facility] Department [address] [place] [address] Kimber Fallon RN from Last 3 Months [...] Smear 1965 Pap Smear 1965 Sigmoidoscopy 1965 Urine Microalbumin 1975 Hepatitis B Vaccines (1 [...] Screening Completed 09/01/2024 Procedures * Due to [place] state law, this organization might not be [...] kidney disease (HCC) QUANTIFERON-TB GOLD PLUS, 1 [id number] Routine 09/01/2024 2:46 PM EST Pre-transplant evaluation for kidney transplant Stage 4 chronic kidney disease (HCC) RPR (DIAGNOSIS) W/REFLEX TO TITER & TPPA [id number] Routine 09/01/2024 2:46 PM EST Pre-transplant evaluation for kidney transplant Stage 4 chronic kidney disease (HCC) VARICELLA ZOSTER ANTIBODY, IGG Routine 09/01/2024 2:46 PM EST Pre-transplant evaluation for kidney transplant Stage 4 chronic kidney disease (HCC) HLA TRANSPLANT WORK-UP (ALLELE LEVEL A/B/C/DRB1/URW843/DQA1/ DQB1/DPA1/DPB1) Routine 09/01/2024 2:46 PM EST Pre-transplant [...] Last 3 Months Results * Due to [place] state law, this organization might not be sharing negative HIV tests. * HLA Transplan Work-Up(Allele Level A/B/C/DRB1/RKZ086/DQA1/DQB1/DPA1/DPB1) (09/01/2024 2:46 PM EST) Pathologist [facility] Information See Below 09/08/2024 4:42 PM EST [facility] Comment: SONYA: ??[id number] ?Director: ??Arabella Garcia MD. [facility] PFI: ??[id number] UNOS: ??[id number] This test [...] DATA NOT REPORTED 09/08/2024 4:42 PM EST [facility] Blood Structure of peripheral vein / Unknown Venipuncture / Unknown 09/01/2024 2:46 PM EST 09/01/2024 3:08 PM EST us Tito Patricio MD HLA LAB ORDERABLES Edited Resul t - Final [facility] [address] Rm: [id number] [place] [address], * MMR Panel, IgG (09/01/2024 2:46 PM EST) Measles Antibody (IgG), Immune Status 122.00 AU/mL 09/02/2024 4:42 AM EST [employer] Comment: AU/mL ?Interpretation ----- ? <13.50 ? Not consistent with immunity 13.50-16.49 ?Equivocal >16.49 ? Consistent with immunity The presence of measles IgG suggests immunization or past or current infection with measles virus. For additional information, please refer to http://Fresco Microchip.Labelby.me/faq/WSB271 (This link is being provided for informational/ educational purposes only.) Mumps Antibody (IgG), Immune Status 11.90 AU/mL 09/02/2024 4:42 AM EST [facility] Comment: AU/mL ? Interpretation ------- ? <9.00 ? Not consistent with immunity 9.00-10.99 ?Equivocal >10.99 ?Consistent with immunity The presence of mumps IgG antibody suggests immunization or past or current infection with mumps virus. Rubella Antibody (IgG), Immune Status 6.46 Index 09/02/2024 4:42 AM EST [facility] Comment: ?Index ?Interpretation ?----- ?<0.90 ?Not consistent with immunity ?0.90-0.99 ?Equivocal ?> or = 1.00 ?Consistent with immunity The presence of rubella IgG antibody suggests immunization or past or current infection with rubella virus. Blood Structure of peripheral vein / Unknown Venipuncture / Unknown 09/01/2024 2:46 PM EST 09/01/2024 3:07 PM EST [employer] [place] - 09/02/2024 4:42 AM EST [employer] Received Date: us Tito Patricio MD LAB BLOOD ORDERABLES Final Resu lt Performing Organization Address City/State/[facility] Co de Phone Number [facility] [address] [facility] [address]rd Floor, [place] [address], [facility] [address], [place] [address], * (ABNORMAL) Herpes Simplex Virus 1&2, IgG (09/01/2024 2:46 PM EST) HSV 1 IgG Type Specific Ab 38.20(H) index 09/02/2024 5:38 PM EST [facility] HSV 2 IgG Type Specific Ab 14.50(H) index 09/02/2024 5:38 PM EST [employer] Comment: ?Index ?Interpretation ?----- ?<0.90 ?Negative ?0.90-1.09 [...] screening. For additional information, please refer to http://education.VODECLIC.[employer]/faq/YUB590 (This link is being provided for informational/ educational purposes only.) ?? Blood Structure of peripheral vein / Unknown Venipuncture / Unknown 09/01/2024 2:46 PM EST 09/01/2024 3:07 PM EST Narrative [facility] - 09/02/2024 5:38 PM EST [facility] Received Date: us Tito Patricio MD LAB BLOOD ORDERABLES Final Resu lt [facility] [place] [address] [facility] [address] Floor, [place] [address], [place] [phone] [employer] [facility] [address], [place] [address], * RPR (Diagnosis) w/Reflex to Titer & TPPA Confirm (09/01/2024 2:46 PM EST) RPR W/Refl Titer NON-REACT MIKE NON-REACT MIKE 09/04/2024 12:24 PM EST [facility] Blood Structure of peripheral vein / Unknown Venipuncture / Unknown 09/01/2024 2:46 PM EST 09/01/2024 3:07 PM EST Narrative [facility] [place] - 09/04/2024 12:24 PM EST [facility] Received Date: Tito Patricio MD LAB BLOOD ORDERABLES Final Resu lt [facility] [address] [facility] [address] Floor, [place] [address], [facility] 200 [facility] 3rd Floor, [place] [address], * QuantiFERON-TB Gold Plus, 1 Tube (09/01/2024 2:46 PM EST) Pathologist [facility] QuantiFERON-TB Gold Plus NEGATIVE NEGATIVE 09/04/2024 4:11 PM EST [facility] Comment: Negative test result. M. tuberculosis complex infection unlikely. NIL 0.05 IU/mL 09/04/2024 4:11 PM EST [employer] [facility] Mitogen-NIL 7.77 IU/mL 09/04/2024 4:11 PM EST [facility] TB1-NIL 0.05 IU/mL 09/04/2024 4:11 PM EST [facility] TB2-NIL 0.05 IU/mL 09/04/2024 4:11 PM EST [facility] Comment: The Nil tube value reflects the [...] T-lymphocytes. For additional information, please refer to https://education.Warm Health/faq/SBS321 (This link is being provided for informational/ educational purposes only.) Blood Structure of peripheral vein / Unknown Venipuncture / Unknown 09/01/2024 2:46 PM EST 09/01/2024 3:06 PM EST Narrative [facility] [place] - 09/04/2024 4:11 PM EST [facility] Received Date: us Tito Patricio MD LAB BLOOD ORDERABLES Final Resu lt [facility] [place] [address] [facility] [address], [place] [address], [place] [phone] [employer] [facility] [address], [place] [address], [place] [phone] * (ABNORMAL) CBC Auto Differential (09/01/2024 2:46 PM EST) WBC 6.2 3.8 - 10.8 10*3/uL 09/01/2024 3:19 PM EST [facility] RBC 2.28(L) 3.80 - 5.10 10*6/uL 09/01/2024 3:19 PM EST [facility] Hemoglobin 6.6(LL) 11.7 - 15.5 g/dL 09/01/2024 3:19 PM EST [facility] Hematocrit 22.3(L) 35.0 - 45.0 % 09/01/2024 3:19 PM EST [facility] MCV 97.8 80.0 - 100.0 fL 09/01/2024 3:19 PM EST [facility] MCH 28.9 27.0 - 33.0 pg 09/01/2024 3:19 PM EST [employer] [facility] MCHC 29.6(L) [...] - 0.50 10*3/uL 09/01/2024 3:19 PM EST [facility] Basophil # <0.03 0.00 - 0.20 10*3/uL 09/01/2024 3:19 PM EST [facility] nRBC % 0.0 /100 WBCs 09/01/2024 3:19 PM EST [facility] nRBC # <0.01 <0.01 10*3/uL 09/01/2024 3:19 PM EST [facility] Blood Structure of peripheral vein / Unknown Venipuncture / Unknown 09/01/2024 2:46 PM EST 09/01/2024 3:10 PM EST us Tito Patricio MD LAB BLOOD ORDERABLES Final Resu lt [facility] [address] [place] [address], * (ABNORMAL) Erick-Pierre Virus VCA Antibody Panel (09/01/2024 2:46 PM EST) EBV Viral Capsid Ag Ab (IGM) <36.00 U/mL 09/02/2024 11:27 AM [employer] Comment: ?U/mL ?Interpretation ?---- ?<36.00 ?Negative ?36.00-43.99 ? Equivocal ?>43.99 ?Positive EBV Viral Capsid Ag Ab (IGG) >750.00(H) U/mL 09/02/2024 11:27 AM [employer] Comment: ? U/mL ? Interpretation ? ---- ? <18.00 ? Negative ? 18.00-21.99 ?Equivocal ? >21.99 ? Positive EBV Nuclear Ag Ab <18.00 U/mL 024 11:27 AM EST [facility] Comment: ? U/mL ? Interpretation ? ---- ? <18.00 ? Negative ? 18.00-21.99 ?Equivocal ? >21.99 ? Positive Interpretation: See Comments 09/02/2024 11:27 AM EST [employer] Comment: Results indicate infection with EBV, but the time since primary infection cannot be determined due to the absence of both VCA IgM and EBNA IgG. Suggest repeat testing in 2-3 weeks if clinically indicated. Blood Structure of peripheral vein / Unknown Venipuncture / Unknown 09/01/2024 2:46 PM EST 09/01/2024 3:10 PM EST [facility] DEJAN GALVEZ - 09/02/2024 11:27 AM EST [facility] Received Date: us Tito Patricio MD LAB BLOOD ORDERABLES Final Resu lt [facility] [address] [facility] [address]rd [address], [place] [address], [place] [phone] [facility] [address] [facility] [address] Floor, [place] [address], [place] [phone] * Hepatitis C Antibody w/Reflex to PCR (09/01/2024 2:46 PM EST) Hepatitis C Antibody NON-REACT MIKE NON-REACT MIKE 09/02/2024 7:23 AM EST [facility] Comment: HCV antibody was non-reactive. There is no laboratory evidence of HCV infection. In most cases, no further action is required. However, if recent HCV exposure is suspected, a test for HCV RNA (test code 28494) is suggested. For additional information please refer to http://Fresco Microchip.Warm Health/faq/COW74t6 (This link is being provided for informational/ educational purposes only.) Blood Structure of peripheral vein / Unknown Venipuncture / Unknown 09/01/2024 2:46 PM EST 09/01/2024 3:07 PM EST Narrative [facility] [place] - 09/02/2024 7:23 AM EST [facility] Received Date: us Tito Patricio MD LAB BLOOD ORDERABLES Final Resu lt [facility] [address] [facility] [address], [place] [address], [facility] [address] [facility] [address] Floor, [place] [address], * (ABNORMAL) Hepatitis A Antibody, Total (09/01/2024 2:46 PM EST) Hepatitis A Ab, Total REACTIVE( A) NON-REACT MIKE 09/02/2024 7:18 AM EST [facility] Comment: For additional information, please refer to http://Fresco Microchip.[employer]/faq/ENB690 (This link is being provided for informational/ educational purposes only.) Blood Structure of peripheral vein / Unknown Venipuncture / Unknown 09/01/2024 2:46 PM EST 09/01/2024 3:10 PM EST Narrative [facility] [place] - 09/02/2024 7:18 AM EST [facility] Received Date: us Tito Patricio MD LAB BLOOD ORDERABLES Final Resu lt Performing Organization Address City/[facility]/ZIP Co de Phone Number [facility] [address], [place] [address], [place] [phone] [employer] [facility] [address], [place] [address], [place] [phone] * Hepatitis B Core Antibody, Total (09/01/2024 2:46 PM EST) Hepatitis B Core Ab Total NON-REACT MIKE NON-REACT MIKE 09/02/2024 5:13 PM EST [employer] [facility] Comment: For additional information, please refer to http://education.Warm Health/faq/OGY453 (This link is being provided for informational/ educational purposes only.) Blood Structure of peripheral vein / Unknown Venipuncture / Unknown 09/01/2024 2:46 PM EST 09/01/2024 3:07 PM EST Narrative [facility] [place] - 09/02/2024 5:13 PM EST [facility] Received Date: us Tito Patricio MD LAB BLOOD ORDERABLES Final Resu lt [facility] [address], [place] [address], [place] [phone] [employer] [facility] [address], [place] [address], [place] [phone] * ABO/Rh Blood Type (09/01/2024 2:46 PM EST) ABO Blood Type A 09/01/2024 4:03 PM EST [facility] RH Type Positive 09/01/2024 4:03 PM EST [facility] Blood Structure of peripheral vein / Unknown Venipuncture / Unknown 09/01/2024 2:46 PM EST 09/01/2024 3:11 PM EST us Tito Patricio MD LAB BLOOD BANK TEST ORDERABLES Final Result [facility] [address] [place] [address], * Hepatitis B Surface Antibody (09/01/2024 2:46 PM EST) Hepatitis B Surface Ab Immunity, Qn 96 > OR = 10 mIU/mL 09/02/2024 6:38 AM EST [facility] Comment: PATIENT HAS IMMUNITY TO HEPATITIS B VIRUS. For additional information, please refer to http://Fresco Microchip.Warm Health/faq/YUK618 (This link is being provided for informational/ educational purposes only). Blood Structure of peripheral vein / Unknown Venipuncture / Unknown 09/01/2024 2:46 PM EST 09/01/2024 3:10 PM EST Narrative [facility] [place] - 09/02/2024 6:38 AM EST [facility] Received Date: Tito Patricio MD LAB BLOOD ORDERABLES Final Resu lt Performing Organization Address City/[facility]/ZIP Co de Phone Number [facility] [address] [facility] [address], [place] [address], [place] [phone] [employer] [facility] [address] [facility] [address] Floor, [place] [address], [place] [phone] * Hepatitis B Surface Antigen w/Confirmation (09/01/2024 2:46 PM EST) Pathologist [facility] Hepatitis B Surface Antigen NON-REACT MIKE NON-REACT MIKE 09/02/2024 6:01 AM EST [employer] [facility] Comment: For additional information, please refer to http://Fresco Microchip.Warm Health/faq/AZR457 (This link is being provided for informational/ educational purposes only.) Blood Structure of peripheral vein / Unknown Venipuncture / Unknown 09/01/2024 2:46 PM EST 09/01/2024 3:07 PM EST Narrative [facility] - 09/02/2024 6:01 AM EST [facility] Received Date: Tito Patricio MD LAB BLOOD ORDERABLES Final Resu lt [facility] [address] [facility] [address], [place] [address], [employer] [facility] 200 [facility] [address] Floor, [place] [address], * (ABNORMAL) Cytomegalovirus Antibody, IgG (09/01/2024 2:46 PM EST) Cytomegalovirus Antibody (IgG) >10.00(H ) U/mL 09/02/2024 4:42 AM EST [facility] Comment: ? U/mL ? Interpretation ? ----- [...] MD LAB BLOOD ORDERABLES Final Resu lt [facility] [place] [address] [facility] [address], [place] [address], [place] [phone] [employer] [facility] [address] [facility] [address] Floor, [place] [address], [place] [phone] * PTT (09/01/2024 2:46 PM EST) aPTT 26.8 23.0 - 32.0 Seconds 09/01/2024 3:27 PM EST [facility] Comment: Current PTT reagent is not sensitive to detect all Lupus Anticoagulant (LA) Inhibitor Cases. ?? If a LA is suspected, please order a Lupus Anticoagulation w/ Reflex Test which is performed at [facility] in [place], [place]. Blood Structure of peripheral vein / Unknown Venipuncture / Unknown 09/01/2024 2:46 PM EST 09/01/2024 3:07 PM EST Tito Patricio MD LAB BLOOD ORDERABLES Final Resu lt [facility] [address] [place] [address], * Protime-INR (09/01/2024 2:46 PM EST) PT 10.0 9.6 - 12.4 Seconds 09/01/2024 3:27 PM EST [facility] INR 0.9 0.9 - 1.1 09/01/2024 3:27 PM EST [facility] Comment:The optimal therapeu tic INR range for patients treated with Vitamin K antagonists (VKAS, e.g., Warfarin) is 2.0 to 3.5. Discuss the desired range with your doctor/care team. Blood Structure of peripheral vein / Unknown Venipuncture / Unknown 09/01/2024 2:46 PM EST 09/01/2024 3:07 PM EST Tito Patricio MD LAB BLOOD ORDERABLES Final Resu lt Performing Organization Address [facility] Phone Number [facility] [address] [place] [address], * Varicella Zoster Antibody, IgG (09/01/2024 2:46 PM EST) Varicella Zoster Virus Antibody 26.10 S/CO 09/02/2024 5:29 PM EST [facility] Comment: ?Signal to Cut-off ? S/CO ?Interpretation [...] EST 09/01/2024 3:07 PM EST Narrative [facility] - 09/02/2024 5:29 PM EST [facility] Received Date: Tito Patricio MD LAB BLOOD ORDERABLES Final Resu lt Performing Organization Address City/[facility]/ZIP Co de Phone Number [facility] [address] [facility] [address], [place] [address], [place] [phone] [employer] [facility] 200 [facility] [address]rd Floor, [place] [address], [place] [phone] * (ABNORMAL) BUN (09/01/2024 2:46 PM EST) BUN 87(H) 7 - 23 mg/dL 09/01/2024 3:52 PM EST [facility] Blood Structure of peripheral vein / Unknown Venipuncture / Unknown 09/01/2024 2:46 PM EST 09/01/2024 3:10 PM EST us Tito Patricio MD LAB BLOOD ORDERABLES Final Resu lt Performing Organization Address City/[facility]/ZIP Co de Phone Number [facility] [address] [place] [address], [place] * ALT (09/01/2024 2:46 PM EST) ALT 10 10 - 40 U/L 09/01/2024 3:52 PM EST [facility] Blood Structure of peripheral vein / Unknown Venipuncture / Unknown 09/01/2024 2:46 PM EST 09/01/2024 3:10 PM EST us Tito Patricio MD LAB BLOOD ORDERABLES Final Resu lt Performing Organization Address City/[facility]/ZIP Co de Phone Number [facility] [address] [place] [address], [place] * AST (09/01/2024 2:46 PM EST) AST 12 10 - 40 U/L 09/01/2024 3:52 PM EST [facility] Blood Structure of peripheral vein / Unknown Venipuncture / Unknown 09/01/2024 2:46 PM EST 09/01/2024 3:10 PM EST Tito Patricio MD LAB BLOOD ORDERABLES Final Resu lt Performing Organization Address [facility] de Phone Number [facility] [facility] [address] [place] [address], * (ABNORMAL) Phosphorus (09/01/2024 2:46 PM EST) Pathologist [facility] Phosphorus 8.2(H) 2.5 - 4.5 mg/dL 09/01/2024 3:52 PM EST [facility] PATH[facility] LAB[facility] Blood Structure of peripheral vein / Unknown Venipuncture / Unknown 09/01/2024 2:46 PM EST 09/01/2024 3:10 PM EST Tito Patricio MD LAB BLOOD ORDERABLES Final Resu Performing Organization Address [facility] de Phone Number [facility] [facility] LABOR[facility]ORY [address] [place] [address], * (ABNORMAL) PTH, Intact (without Calcium) (09/01/2024 2:46 PM EST) [facility] Parathyroid Hormone, Intact 1488(H) 16 - 77 pg/mL 09/03/2024 7:22 AM EST [facility] Comment: Interpretive Guide ?Intact PTH ? Calcium [...] LAB BLOOD ORDERABLES Final Resu lt [facility] [place] [address] [facility] [address], [place] [address], [employer] [facility] 200 [facility] [address], [place] [address], * (ABNORMAL) Creatinine (09/01/2024 2:46 PM EST) Creatinine 6.72(H) 0.50 - 1.20 mg/dL 09/01/2024 3:52 PM EST [facility] eGFR 7(L) >=60 mL/min/1 .73m2 09/01/2024 3:52 PM EST [facility] Comment:The estimated glomer ular filtration rate (eGFR) is calculated using a new formula developed by the NKF-ASN task force to eliminate race-based correction factors. The new formula uses serum/plasma creatinine, age, and gender to determine eGFR. A value below 60mls/min might indicate kidney disease and will be flagged. For additional information, see Banegas et al, Am J Kidney Dis. 2021;79(2):268- 288, A Unifying Approach for GFR estimation: Recommendations of the NKF-ASN Task Force on Reassessing the Inclusion of Race in Diagnosing Kidney Disease . Blood Structure of peripheral vein / Unknown Venipuncture / Unknown 09/01/2024 2:46 PM EST 09/01/2024 3:10 PM EST us Tito Patricio MD LAB BLOOD ORDERABLES Final Resu lt Performing Organization Address [facility] Co de Phone Number [facility] [address] [place] [address], * (ABNORMAL) Calcium (09/01/2024 2:46 PM EST) Calcium 8.1(L) 8.6 - 10.5 mg/dL 09/01/2024 3:52 PM EST [facility] Blood Structure of peripheral vein / Unknown Venipuncture / Unknown 09/01/2024 2:46 PM EST 09/01/2024 3:10 PM EST us Tito Patricio MD LAB BLOOD ORDERABLES Final Resu lt Performing Organization Address [facility] Co de Phone Number [facility] [address] [place] [address], [place] * Bilirubin, Direct (09/01/2024 2:46 PM EST) Bilirubin, Direct <0.1 <=0.4 mg/dL 09/01/2024 3:54 PM EST [facility] Blood Structure of peripheral vein / Unknown Venipuncture / Unknown 09/01/2024 2:46 PM EST 09/01/2024 3:10 PM EST us Tito Patricio MD LAB BLOOD ORDERABLES Final Resu lt Performing Organization Address [facility]/ZIP Co de Phone Number [facility] [address] [place] [address], * (ABNORMAL) Bilirubin, Total (09/01/2024 2:46 PM EST) Bilirubin, Total <0.2(L) 0.2 - 1.2 mg/dL 09/01/2024 3:54 PM EST [facility] Blood Structure of peripheral vein / Unknown Venipuncture / Unknown 09/01/2024 2:46 PM EST 09/01/2024 3:10 PM EST Tito Patricio MD LAB BLOOD ORDERABLES Final Resu lt Performing Organization Address City/[facility]/ZIP Co de Phone Number [facility] [facility] [address] [place] [address], * Albumin (09/01/2024 2:46 PM EST) Albumin 4.0 3.5 - 5.2 g/dL 09/01/2024 3:52 PM EST [facility] Blood Structure of peripheral vein / Unknown Venipuncture / Unknown 09/01/2024 2:46 PM EST 09/01/2024 3:10 PM EST Tito Patricio MD LAB BLOOD ORDERABLES Final Resu lt Performing Organization Address City/[facility]/ZIP Co de Phone Number [facility] [address] [place] [address], from Last [address] [place] [address] [address] [place] [id number] [facility] [place] [id number] Care Teams Title 1 Tutor Relationship Specialty Start Date End Date Emanuel Scruggs [address] [place] [id number] PCP - General 03/22/17
--- OUTSIDE RECORDS SUMMARY | 2024-11-04 12:25 | XMS_ITS | Encounter Summary ---
Author Organization [facility] Address [address] [place] [address] Care Team Providers Care Suede Brusher Name Role Phone RamseyKasikatieHans whitejarek Georgiana Primary Care Provider [phone] Reason for Referral * MRI/CAT/PET Scan (Routine) - Closed Specialty Diagnoses / Procedures Referred By Satish valverde Referred To Contact Radiology Diagnoses Renovascular hypertension Procedures CT Abdomen Pelvis without Contrast Tito Patricio MD [address] [place] [phone] Phone: tel: fax: Referral ID Status Reason Start Date Expiration Date Visits Re quested Visits Authorized [id number] Closed 10/01/2024 04/02/2026 1 1 Encounter Details Date Type Department Care Team (Late st Contact Info) Description 10/01/2024 Orders Only [facility] Transplant Department [address] [place] [phone] Tito Patricio MD [address] [place] [phone] Renovascular hypertension (Primary Dx) Social History Tobacco [...] Type Priority Associated Diagnoses Orde r Schedule CT Abdomen Pelvis without Contrast Imaging Routine Renovascular hypertension Expected: 10/15/2024, Expires: 11/29/2025 documented as of this encounter Visit Diagnoses Diagnosis Renovascular hypertension- Primary Secondary renovascular hypertension, unspecified documented in this encounter Care Teams Suede Brusher Relationship Specialty Start Date End Date Emanuel Scruggs [address] [place] [id number] PCP - General 03/22/17 documented as of this encounter
--- OUTSIDE RECORDS SUMMARY | 2024-11-04 12:25 | XMS_ITS | Referral Summary ---
Author Organization [facility] Address [address] [place] [address] Care Team Providers Care Multiple Games Dealer Name Role Phone Emanuel Scruggs Primary Care Provider [phone] Encounters Date Type Department Care Team Description 10/08/2024 Telephone [facility] Transplant Department [address] [place] [address] Kimber Fallon, RN 10/01/2024 Orders Only [facility] Transplant Department [address] [place] [phone] Tito Patricio MD Renovascular hypertension (Primary Dx) 09/23/2024 Telephone [facility] Transplant Department [address] [place] [phone] Kimber Fallon, RN 09/19/2024 Telephone [facility] Transplant Department [address] [place] [phone] Kimber Fallon, RN 09/01/2024 2:35 PM EST Lab [facility] Draw Site [address] [place] [address] Pre-transplant evaluation for kidney transplant; Stage 4 chronic kidney disease (HCC) 09/01/2024 Orders Only [facility] Transplant Department [address] [place] [phone] Kimber Fallon, RN Pre-transplant evaluation for kidney transplant (Primary Dx); Stage 4 chronic kidney disease (HCC) 09/01/2024 1:45 PM EST Social Work [facility] Renal Transplant [address] [place] [address] Thomas Freeman 09/01/2024 1:00 PM EST Office Visit [facility] Renal Transplant [address] [place] [address] Devante Juarez MD Heher, Eliot C, MD Pre-transplant evaluation for kidney transplant (Primary Dx); Chronic kidney disease, stage V (HCC) 09/01/2024 11:45 AM EST Evaluation [facility] Transplant [address] [place] [phone] Kimber Fallon RN Pre-transplant evaluation for kidney transplant (Primary Dx) 09/01/2024 11:15 AM EST Office Visit [facility] Transplant [address] [place] [phone] Karen Madrigal RN Pre-transplant evaluation for kidney transplant (Primary Dx) 08/28/2024 Telephone [facility] Transplant Department [address] [place] [phone] Kimber Fallon, LEROY from Last 3 Months [...] Not on file Procedures * Due to [place] state law, this organization might not be [...] kidney disease (HCC) QUANTIFERON-TB GOLD PLUS, 1 [id number] Routine 09/01/2024 2:46 PM EST Pre-transplant evaluation for kidney transplant Stage 4 chronic kidney disease (HCC) RPR (DIAGNOSIS) W/REFLEX TO TITER & TPPA [id number] Routine 09/01/2024 2:46 PM EST Pre-transplant evaluation for kidney transplant Stage 4 chronic kidney disease (HCC) VARICELLA ZOSTER ANTIBODY, IGG Routine 09/01/2024 2:46 PM EST Pre-transplant evaluation for kidney transplant Stage 4 chronic kidney disease (HCC) HLA TRANSPLANT WORK-UP (ALLELE LEVEL A/B/C/DRB1/MQO580/DQA1/ DQB1/DPA1/DPB1) Routine 09/01/2024 2:46 PM EST Pre-transplant [...] Last 3 Months Results * Due to [place] state law, this organization might not be sharing negative HIV tests. * HLA Transplan Work-Up(Allele Level A/B/C/DRB1/SKI576/DQA1/DQB1/DPA1/DPB1) (09/01/2024 2:46 PM EST) Pathologist [facility] Histocompatibility Laboratory Information See Below 09/08/2024 4:42 PM EST [facility] Comment: SONYA: ?Director: ??Arabella Garcia MD. [facility] PFI: ??[id number] UNOS: ??[id number]-[id number] This [...] GISSELL Ramírez [facility] [address] [facility] Rm: [id number] [place] [address], * MMR Panel, IgG (09/01/2024 2:46 PM EST) Measles Antibody (IgG), Immune Status 122.00 AU/mL 09/02/2024 4:42 AM EST [facility] Comment: AU/mL ?Interpretation ----- ? <13.50 ? Not consistent with immunity 13.50-16.49 ?Equivocal >16.49 ? Consistent with immunity The presence of measles IgG suggests immunization or past or current infection with measles virus. For additional information, please refer to http://Elucid Bioimaging.TradeCloud.nl/faq/OME658 (This link is being provided for informational/ educational purposes only.) Mumps Antibody (IgG), Immune Status 11.90 AU/mL 09/02/2024 4:42 AM EST [facility] Comment: AU/mL ? Interpretation ------- ? <9.00 ? Not consistent with immunity 9.00-10.99 ?Equivocal >10.99 ?Consistent with immunity The presence of mumps IgG antibody suggests immunization or past or current infection with mumps virus. Rubella Antibody (IgG), Immune Status 6.46 Index 09/02/2024 4:42 AM EST [facility] Comment: ?Index ?Interpretation ?----- ?<0.90 ?Not consistent [...] LAB BLOOD ORDERABLES Final Resu lt [facility] [address] [facility] 3rd Floor, [place] [address], [place] [phone] [employer] [facility] 200 [facility] 3rd Floor, [place] [address], [place] [phone] * (ABNORMAL) Herpes Simplex Virus 1&2, IgG (09/01/2024 2:46 PM EST) [facility] HSV 1 IgG Type Specific Ab 38.20(H) index 09/02/2024 5:38 PM EST [employer] [facility] HSV 2 IgG Type Specific Ab 14.50(H) index 09/02/2024 5:38 PM EST [employer] [facility] Comment: ?Index ?Interpretation ?----- ?<0.90 ?Negative ?0.90-1.09 [...] screening. For additional information, please refer to http://education.GENELINK.Sangon Biotech/faq/XOE900 (This link is being provided for informational/ educational purposes only.) ?? Blood Structure of peripheral vein / Unknown Venipuncture / Unknown 09/01/2024 2:46 PM EST 09/01/2024 3:07 PM EST Narrative [facility] - 09/02/2024 5:38 PM EST [facility] Received Date: us Tito Patricio MD LAB BLOOD ORDERABLES Final Resu lt [facility] 200 [facility] 3rd Floor, [place] [address], [place] [phone] [facility] [employer] [facility] 200 [facility] 3rd Floor, [place] [address], [place] [phone] * RPR (Diagnosis) w/Reflex to Titer & TPPA Confirm (09/01/2024 2:46 PM EST) RPR W/Refl Titer NON-REACT MIKE NON-REACT MIKE 09/04/2024 12:24 PM EST [employer] [facility] Blood Structure of peripheral vein / Unknown Venipuncture / Unknown 09/01/2024 2:46 PM EST 09/01/2024 3:07 PM EST Narrative [facility] - 09/04/2024 12:24 PM EST [facility] Received Date: us Tito Patricio MD LAB BLOOD ORDERABLES Final Resu lt [facility] [address] [facility] 3rd Floor, [place] [address], [place] [phone] [employer] [facility] 200 [facility] [address]rd [facility], [place] [address], [place] [phone] * QuantiFERON-TB Gold Plus, 1 Tube (09/01/2024 2:46 PM EST) QuantiFERON-TB Gold Plus NEGATIVE NEGATIVE 09/04/2024 4:11 PM EST [employer] [facility] Comment: Negative test result. M. tuberculosis complex infection unlikely. NIL 0.05 IU/mL 09/04/2024 4:11 PM EST [employer] [facility] Mitogen-NIL 7.77 IU/mL 09/04/2024 4:11 PM EST [employer] [facility] TB1-NIL 0.05 IU/mL 09/04/2024 4:11 PM EST [employer] [facility] TB2-NIL 0.05 IU/mL 09/04/2024 4:11 PM EST [employer] [facility] Comment: The Nil tube value reflects [...] T-lymphocytes. For additional information, please refer to https://education.Browserling/faq/SDF065 (This link is being provided for informational/ educational purposes only.) Blood Structure of peripheral vein / Unknown Venipuncture / Unknown 09/01/2024 2:46 PM EST 09/01/2024 3:06 PM EST Narrative [facility] - 09/04/2024 4:11 PM EST [facility] Received Date: us Tito Patricio MD LAB BLOOD ORDERABLES Final Resu lt DEJAN [address]rd Floor, [place] [address], [place] [phone] [employer] [address], [place] [address], [place] [phone] * (ABNORMAL) CBC Auto Differential (09/01/2024 2:46 PM EST) WBC 6.2 3.8 - 10.8 10*3/uL 09/01/2024 3:19 PM EST [email or web address] [facility] RBC 2.28(L) 3.80 - 5.10 10*6/uL 09/01/2024 3:19 PM EST [email or web address] [facility] Hemoglobin 6.6(LL) 11.7 - [...] <0.03 <=0.03 10*3/uL 09/01/2024 3:19 PM EST [facility]STITUTEGreen[facility] TechnologiesPRE[facility] [employer] CLINICAL PATHOLOGY LABORATORY Lymphocyte # 1.80 0.85 - 3.90 10*3/uL 09/01/2024 3:19 PM EST [facility]STITUTEGreenRoad TechnologiesPRE[facility] [employer] CL[facility]ICAL PATHOLOGY LABORATORY Monocyte # 0.30 0.20 - 0.95 10*3/uL 09/01/2024 3:19 PM EST [facility] [employer] CLINICAL PATHOLOGY LABORATORY Eosinophil # 0.10 0.02 - 0.50 10*3/uL 09/01/2024 3:19 PM EST [facility] INSTITUTEGreenRoad TechnologiesDUN[facility] [employer] CLINICAL PATHOLOGY LABORATORY Basophil # <0.03 0.00 - 0.20 10*3/uL 09/01/2024 3:19 PM EST [facility] INSTITUTEGreenRoad TechnologiesPRE[facility] [employer] CL[facility]ICAL PATHOLOGY LABORATORY nRBC % 0.0 /100 WBCs 09/01/2024 3:19 PM EST VUELOGICNEGreenRoad TechnologiesDUNLAP MEM[facility] [employer] CLINICAL PATHOLOGY LABORATORY nRBC # <0.01 <0.01 10*3/uL 09/01/2024 3:19 PM EST [facility]DUNL[facility] [employer] CLINICAL PATHOLOGY LABORATORY Blood Structure of peripheral vein / Unknown Venipuncture / Unknown 09/01/2024 2:46 PM EST 09/01/2024 3:10 PM EST us Tito Patricio MD LAB BLOOD ORDERABLES Final Resu lt [facility] [employer] CLINICAL PATHOLOGY LABORATORY [address] [place] [address], * (ABNORMAL) Erick-Pierre Virus VCA Antibody Panel (09/01/2024 2:46 PM EST) EBV Viral Capsid Ag Ab (IGM) <36.00 U/mL 09/02/2024 11:27 AM EST [facility] Comment: ?U/mL ?Interpretation ?---- ?<36.00 ?Negative ?36.00-43.99 ? Equivocal ?>43.99 ?Positive EBV Viral Capsid Ag Ab (IGG) >750.00(H) U/mL 09/02/2024 11:27 AM [employer] Comment: ? U/mL ? Interpretation ? ---- ? <18.00 ? Negative ? 18.00-21.99 ?Equivocal ? >21.99 ? Positive EBV Nuclear Ag Ab <18.00 U/mL 11:27 AM [employer] Comment: ? U/mL ? Interpretation ? ---- ? <18.00 ? Negative ? 18.00-21.99 ?Equivocal ? >21.99 ? Positive Interpretation: See Comments 09/02/2024 11:27 AM [employer] Comment: Results indicate infection with EBV, but the time since primary infection cannot be determined due to the absence of both VCA IgM and EBNA IgG. Suggest repeat testing in 2-3 weeks if clinically indicated. Blood Structure of peripheral vein / Unknown Venipuncture / Unknown 09/01/2024 2:46 PM EST 09/01/2024 3:10 PM EST Narrative [facility] - 09/02/2024 11:27 AM EST [employer] Received Date: us Tito Patricio MD LAB BLOOD ORDERABLES Final Resu lt Performing Organization Address City/[facility]/ZIP Co de Phone Number DEJAN [facility] [address], [place] [address], [place] [phone] [employer] [facility] [address], [place] [address], [place] [phone] * Hepatitis C Antibody w/Reflex to PCR (09/01/2024 2:46 PM EST) Hepatitis C Antibody NON-REACT MIKE NON-REACT MIKE 09/02/2024 7:23 AM EST [facility] Comment: HCV antibody was non-reactive. There is no laboratory evidence of HCV infection. In most cases, no further action is required. However, if recent HCV exposure is suspected, a test for HCV RNA (test code 31985) is suggested. For additional information please refer to http://Elucid Bioimaging.Browserling/faq/IOC43b1 (This link is being provided for informational/ educational purposes only.) Blood Structure of peripheral vein / Unknown Venipuncture / Unknown 09/01/2024 2:46 PM EST 09/01/2024 3:07 PM EST Narrative [facility] - 09/02/2024 7:23 AM EST [facility] Received Date: us Tito Patricio MD LAB BLOOD ORDERABLES Final Resu lt Performing Organization Address City/[facility]/ZIP Co de Phone Number DEJAN [facility]AL[facility] [address], [place] [address], [place] [phone] [employer] [facility] [address], [place] [address], [place] [phone] * (ABNORMAL) Hepatitis A Antibody, Total (09/01/2024 2:46 PM EST) Hepatitis A Ab, Total REACTIVE( A) NON-REACT MIKE 09/02/2024 7:18 AM EST [facility] Comment: For additional information, please refer to http://Elucid Bioimaging.Browserling/faq/LRG151 (This link is being provided for informational/ educational purposes only.) Blood Structure of peripheral vein / Unknown Venipuncture / Unknown 09/01/2024 2:46 PM EST 09/01/2024 3:10 PM EST [facility] 09/02/2024 7:18 AM EST [facility] Received Date: us Tito Patricio MD LAB BLOOD ORDERABLES Final Resu lt Performing Organization Address City/[facility]/ZIP Co de Phone Number [facility] [address], [place] [address], [place] [phone] [employer] [address], [place] [address], [place] [phone] * Hepatitis B Core Antibody, Total (09/01/2024 2:46 PM EST) Hepatitis B Core Ab Total NON-REACT MIKE NON-REACT MIKE 09/02/2024 5:13 PM EST [employer] [facility] Comment: For additional information, please refer to http://Elucid Bioimaging.Browserling/faq/IEH898 (This link is being provided for informational/ educational purposes only.) Blood Structure of peripheral vein / Unknown Venipuncture / Unknown 09/01/2024 2:46 PM EST 09/01/2024 3:07 PM EST Narrative [facility] 09/02/2024 5:13 PM EST [facility] Received Date:[id number] us Tito Patricio MD LAB BLOOD ORDERABLES Final Resu lt Performing Organization Address City/[facility]/ZIP Co de Phone Number [facility] [address], [place] [address], [place] [phone] [employer] [facility] [address], [place] [address], [place] [phone] * ABO/Rh Blood Type (09/01/2024 2:46 PM EST) Pathologist [facility] ABO Blood Type A 09/01/2024 4:03 PM EST [facility] RH Type Positive 09/01/2024 4:03 PM EST [facility] Blood Structure of peripheral vein / Unknown Venipuncture / Unknown 09/01/2024 2:46 PM EST 09/01/2024 3:11 PM EST us Tito Patricio MD LAB BLOOD BANK TEST ORDERABLES Final Result [facility] [address] [place] [address], [place] [phone] * Hepatitis B Surface Antibody (09/01/2024 2:46 PM EST) Pathologist [facility] Hepatitis B Surface Ab Immunity, Qn 96 > OR = 10 mIU/mL 09/02/2024 6:38 AM EST [employer] [facility] Comment: PATIENT HAS IMMUNITY TO HEPATITIS B VIRUS. For additional information, please refer to http://education.Browserling/faq/HTF113 (This link is being provided for informational/ educational purposes only). Blood Structure of peripheral vein / Unknown Venipuncture / Unknown 09/01/2024 2:46 PM EST 09/01/2024 3:10 PM EST Narrative [facility] - 09/02/2024 6:38 AM EST [facility] Received Date: us Tito Patricio MD LAB BLOOD ORDERABLES Final Resu lt [facility] [address] [facility] 3rd Floor, [place] [address], [place] [phone] [employer] [facility] 200 [facility] 3rd Floor, [place] [address], [place] [phone] * Hepatitis B Surface Antigen w/Confirmation (09/01/2024 2:46 PM EST) Pathologist [facility] Hepatitis B Surface Antigen NON-REACT MIKE NON-REACT MIKE 09/02/2024 6:01 AM EST [facility] Comment: For additional information, please refer to http://education.Browserling/faq/DQU507 (This link is being provided for informational/ educational purposes only.) Blood Structure of peripheral vein / Unknown Venipuncture / Unknown 09/01/2024 2:46 PM EST 09/01/2024 3:07 PM EST Narrative [facility] - 09/02/2024 6:01 AM EST [facility] Received Date: us Tito Patricio MD LAB BLOOD ORDERABLES Final Resu lt [facility] [address] [facility] 3rd Floor, [place] [address], [employer] [facility] [address], [place] [address], * (ABNORMAL) Cytomegalovirus Antibody, IgG (09/01/2024 2:46 PM EST) Cytomegalovirus Antibody (IgG) >10.00(H ) U/mL 09/02/2024 4:42 AM EST [facility] Comment: ? U/mL ? Interpretation ? ----- ? <0.60 ? Negative ? 0.60-0.69 ? Equivocal ? > or = 0.70 ?? Positive A positive result indicates that the patient has antibody to CMV. It does not differentiate between an active or past infection. Blood Structure of peripheral vein / Unknown Venipuncture / Unknown 09/01/2024 2:46 PM EST 09/01/2024 3:07 PM EST Narrative [facility] 09/02/2024 4:42 AM EST [facility] Received Date: us Tito Patricio MD LAB BLOOD ORDERABLES Final Resu lt [address], [place] [address], [place] [phone] [employer] [address], [place] [address], [place] [phone] * PTT (09/01/2024 2:46 PM EST) aPTT 26.8 23.0 - 32.0 Seconds 09/01/2024 3:27 PM EST [email or web address] [facility] PATH[facility] LABORATORY Comment: Current PTT reagent is not sensitive to detect all Lupus Anticoagulant (LA) Inhibitor Cases. ?? If a LA is suspected, please order a Lupus Anticoagulation w/ Reflex Test which is performed at [facility] in [place], [place]. Blood Structure of peripheral vein / Unknown Venipuncture / Unknown 09/01/2024 2:46 PM EST 09/01/2024 3:07 PM EST us Tito Patricio MD LAB BLOOD ORDERABLES Final Resu lt [facility] [address] [place] [address], * Protime-INR (09/01/2024 2:46 PM EST) PT 10.0 9.6 - 12.4 Seconds 09/01/2024 3:27 PM EST [email or web address] [facility] LAB[facility] INR 0.9 0.9 - 1.1 09/01/2024 3:27 PM EST [email or web address] [facility] LABOR[facility]ORY Comment:The optimal therapeu tic INR range for patients treated with Vitamin K antagonists (VKAS, e.g., Warfarin) is 2.0 to 3.5. Discuss the desired range with your doctor/care team. Blood Structure of peripheral vein / Unknown Venipuncture / Unknown 09/01/2024 2:46 PM EST 09/01/2024 3:07 PM EST us Tito Patricio MD LAB BLOOD ORDERABLES Final Resu lt [email or web address] [facility] LABOR[facility]ORY [address] [place] [address], * Varicella Zoster Antibody, IgG (09/01/2024 2:46 PM EST) Varicella Zoster Virus Antibody 26.10 S/CO 09/02/2024 5:29 PM EST [facility] Comment: ?Signal to Cut-off ? S/CO ?Interpretation [...] EST 09/01/2024 3:07 PM EST Narrative [facility] - 09/02/2024 5:29 PM EST [facility] Received Date: us Tito Patricio MD LAB BLOOD ORDERABLES Final Resu lt Performing Organization Address City/[facility]/ZIP Co de Phone Number [facility] [address] [facility] 3rd Floor, [place] [address], [place] [phone] [employer] [address]rd [address], [place] [address], [place] [phone] * (ABNORMAL) BUN (09/01/2024 2:46 PM EST) BUN 87(H) 7 - 23 mg/dL 09/01/2024 3:52 PM EST [email or web address] [facility] LABORATORY Blood Structure of peripheral vein / Unknown Venipuncture / Unknown 09/01/2024 2:46 PM EST 09/01/2024 3:10 PM EST us Tito Patricio MD LAB BLOOD ORDERABLES Final Resu lt Performing Organization Address [facility]/ZIP Co de Phone Number [facility] [address] [place] [address], * ALT (09/01/2024 2:46 PM EST) ALT 10 10 - 40 U/L 09/01/2024 3:52 PM EST [email or web address] [facility] LABORATORY Blood Structure of peripheral vein / Unknown Venipuncture / Unknown 09/01/2024 2:46 PM EST 09/01/2024 3:10 PM EST us Tito Patricio MD LAB BLOOD ORDERABLES Final Resu lt [email or web address] [facility] [address] [place] [address], * AST (09/01/2024 2:46 PM EST) AST 12 10 - 40 U/L 09/01/2024 3:52 PM EST [email or web address] [facility] PATHOLOG[facility] LABORATORY Blood Structure of peripheral vein / Unknown Venipuncture / Unknown 09/01/2024 2:46 PM EST 09/01/2024 3:10 PM EST Tito Patricio MD LAB BLOOD ORDERABLES Final Resu lt Performing Organization Address [facility] de Phone Number [email or web address] Application [facility] PATHOLOG[facility] LABORATORY [address] [place] [address], * (ABNORMAL) Phosphorus (09/01/2024 2:46 PM EST) Pathologist [facility] Phosphorus 8.2(H) 2.5 - 4.5 mg/dL 09/01/2024 3:52 PM EST [email or web address] [facility]ICAL PATHOLOGY LABORATORY Blood Structure of peripheral vein / Unknown Venipuncture / Unknown 09/01/2024 2:46 PM EST 09/01/2024 3:10 PM EST Tito Patricio MD LAB BLOOD ORDERABLES Final Resu lt Performing Organization Address [facility] de Phone Number [email or web address] [facility] PATHOLOG[facility] LABORATORY [address] [place] [address], * (ABNORMAL) PTH, Intact (without Calcium) (09/01/2024 2:46 PM EST) Parathyroid Hormone, Intact 1488(H) 16 - 77 pg/mL 09/03/2024 7:22 AM EST [facility] Comment: Interpretive Guide ?Intact PTH ? Calcium [...] EST 09/01/2024 3:10 PM EST Narrative [facility] - 09/03/2024 7:22 AM EST [facility] Received Date: Tito Patricio MD LAB BLOOD ORDERABLES Final Resu lt [facility] [address] [facility] [address]rd Floor, [place] [address], [place] [phone] [employer] [facility] 200 [facility] 3rd Floor, [place] [address], * (ABNORMAL) Creatinine (09/01/2024 2:46 PM EST) Creatinine 6.72(H) 0.50 - 1.20 mg/dL 09/01/2024 3:52 PM EST [email or web address] [facility] LABOR[facility]ORY eGFR 7(L) >=60 mL/min/1 .73m2 09/01/2024 3:52 PM EST [email or web address] [facility] LABORATORY Comment:The estimated glomer ular [...] ORDERABLES Final Resu lt Performing Organization Address City/[facility]/ZIP Co de Phone Number [email or web address] [facility] PATH[facility] LABORATORY [address] [place] [address], * (ABNORMAL) Calcium (09/01/2024 2:46 PM EST) Calcium 8.1(L) 8.6 - 10.5 mg/dL 09/01/2024 3:52 PM EST [email or web address] [facility] PATHOLOGY LABORATORY Blood Structure of peripheral vein / Unknown Venipuncture / Unknown 09/01/2024 2:46 PM EST 09/01/2024 3:10 PM EST us Tito Patricio MD LAB BLOOD ORDERABLES Final Resu lt Performing Organization Address City/[facility]/ZIP Co de Phone Number [email or web address] [facility] LABORATORY [address] [place] [address], * Bilirubin, Direct (09/01/2024 2:46 PM EST) Bilirubin, Direct <0.1 <=0.4 mg/dL 09/01/2024 3:54 PM EST [email or web address] [facility] PATH[facility] LABORATORY Blood Structure of peripheral vein / Unknown Venipuncture / Unknown 09/01/2024 2:46 PM EST 09/01/2024 3:10 PM EST us Tito Patricio MD LAB BLOOD ORDERABLES Final Resu lt Performing Organization Address [facility] Co de Phone Number [email or web address] Application [facility]ICAL PATHOLOGY LABORATORY [address] [place] [address] * (ABNORMAL) Bilirubin, Total (09/01/2024 2:46 PM EST) Bilirubin, Total <0.2(L) 0.2 - 1.2 mg/dL 09/01/2024 3:54 PM EST [facility] LAB[facility] Blood Structure of peripheral vein / Unknown Venipuncture / Unknown 09/01/2024 2:46 PM EST 09/01/2024 3:10 PM EST Tito Patricio MD LAB BLOOD ORDERABLES Final Resu lt Performing Organization Address [facility] Co de Phone Number [email or web address] [facility] PATHOLOG[facility] LABORATORY [address] [place] [address] * Albumin (09/01/2024 2:46 PM EST) Albumin 4.0 3.5 - 5.2 g/dL 09/01/2024 3:52 PM EST [email or web address] [facility] PATHOLOG[facility] LABORATORY Blood Structure of peripheral vein / Unknown Venipuncture / Unknown 09/01/2024 2:46 PM EST 09/01/2024 3:10 PM EST Tito Patricio MD LAB BLOOD ORDERABLES Final Resu lt Performing Organization Address City/[facility]/ZIP Co de Phone Number [email or web address] Application [facility] [address] [place] [address], from Last [address] [place] [address] [facility] Care Teams Multiple Games Dealer Relationship Specialty Start Date End Date Emanuel Scruggs [address] [place] [id number] PCP - General 03/22/17
--- OUTSIDE RECORDS SUMMARY | 2024-11-04 12:25 | XMS_ITS | Encounter Summary ---
Author Organization [facility] Address [address] [place] [address] Care Team Providers Care Emergency Vehicle Technician Name Role Phone Emanuel Scruggs Primary Care Provider [phone] Encounter Details Date Type Department Care Team (Late st Contact Info) Description 10/08/2024 Telephone [facility] Transplant Department [address] [place], [place] [phone] Kimber Fallon RN [address] [place] [address] Social History Tobacco Use Types Packs/Day Years [...] PM EST No Authorization is required call [facility] [phone] spoke with Isabela Doherty Ref#[id number] documented in this encounter Plan of Treatment Not on file documented as of this encounter Visit Diagnoses Not on filedocumented in this encounter Care Teams Emergency Vehicle Technician Relationship Specialty Start Date End Date Emanuel Scruggs [address] [place], [place] [phone] PCP - General 03/22/17 documented as of this encounter
--- OUTSIDE RECORDS SUMMARY | 2024-11-04 12:25 | XMS_ITS ---
Author Organization [facility] Address [address] [place] [address] Care Team Providers Care School Cook Name Role Phone Emanuel Scruggs Primary Care Provider [phone] Transplant Episode Kidney Candidate [facility] ([place], [place]) - [facility] Evaluation began on 09/01/2024 Marked as Active on 09/01/2024 Kidney CoordinatorKimber Fallon RN Fax: N/A Email: N/A Scores Score Value Updated Exceptions/Reas ons CPRA Not available EPTS (Calc) 27 11/04/2024 [place] Organ Diagnosis Organ Primary Contributory Kidney Hypertensive Nephrosclerosis Care Team Name Role Phone Fax Email Kimber Fallon RN Kidney Coordinator [phone] N/A N/A Danis Betancur Referring Physician [phone] N/A Events Pre-Transplant Referred: 07/07/2024 Evaluation began: 09/01/2024
--- OUTSIDE RECORDS SUMMARY | 2024-11-04 12:25 | XMS_ITS | Clinical Summary ---
Author Organization [facility] Address [address] [place] [address] Care Team Providers Care Financial Sales Advisor Name Role Phone Mary Garcia LISA Primary Care Provider [phone] Allergies Active Allergy Reactions Criticality Noted Date [...] in the evening. Active ergocalciferol 1.25 MG (97032 UT) capsule Take 1 capsule by mouth [...] (#1) 2024 Insurance [place] [id number] [facility] [place] [id number] Care Teams Financial Sales Advisor Relationship Specialty Start Date End Date Mary Garcia FNP [address] [place] [address] PCP - General 06/19/22
== END 2024-11-04 11:04 | disposition home or self-care (01) ==
PROVIDERS: PCP Internal Medicine; Visit Provider Internal Medicine
DX: N18.5 Chronic kidney disease, stage 5 (principal); D63.1 Anemia in chronic kidney disease; I12.0 Hypertensive chronic kidney disease with stage 5 chronic kidney disease or end stage renal disease; I48.91 Unspecified atrial fibrillation

== ENCOUNTER → 2024-11-04 10:16 | Outpatient (BNVA) | payer OTHER, SELFPAY | PROVIDERS: PCP Internal Medicine; Visit Provider Internal Medicine | DX: I12.0 Hypertensive chronic kidney disease with stage 5 chronic kidney disease or end stage renal disease (principal); N18.5 Chronic kidney disease, stage 5; D63.1 Anemia in chronic kidney disease; I48.91 Unspecified atrial fibrillation | CPT/HCPCS: 96127; 99212 ==

== ENCOUNTER 2024-11-06 09:54 | Outpatient (AMB) | payer OTHER, SELFPAY ==
--- NOTE | 2024-11-06 10:05 | A.OFFVIS_ITS ---
Intake Visit Reasons: follow up for AVF Intake Note: Patient presents for follow up AVF. No complaints. Accompanied by: Daughter Allergies Penicillins Allergy (Intermediate, Verified 11/06/24 10:07) RASH HPI HPI follow up for AVF: Details: The patient is a 58-year-old female presenting with stage V chronic kidney disease. Previously, she had been evaluated for dialysis access but chose not to proceed with the intervention. Concerns over her worsening condition have prompted the reconsideration of her refusal, with an understanding that dialysis is now a necessary step due to her advanced disease. Her current visit focuses on evaluating the feasibility of a dialysis access procedure, taking into account any vascular concerns such as the size of her veins. Reason for dialysis includes uncontrolled hypertension and renal artery aneurysms. Last GFR was 8. She does have a prior history of of catheters but unclear what was the reason behind that. She is right-hand dominant Expected timeline for dialysis is less than 6 months. Patient now presents for permanent dialysis access [facility] Medical History Acute on chronic kidney failure Secondary hyperparathyroidism (of renal origin) CKD (chronic kidney disease) stage 5, GFR less than 15 ml/min Essential hypertension History of colon polyps Anemia in chronic kidney disease (CKD) Anemia CKD (chronic kidney disease) Chronic systolic (congestive) heart failure Cardiomyopathy Normocytic anemia Surgical History Hx of colonoscopy History of surgery Status post dilation and curettage History of abdominal surgery History of extraction of renal calculus History of tubal ligation Family History Father Throat cancer Mother Hypertension Daughter In good health Daughter In good health Sister In good health Family/Other Breast cancer Social History Household Members: None Housing: Apartment Are you a primary long term care pharmacist to a significant other at home: No Do you presently have visiting nurse or other home services: No Alcohol intake: never Comment: recent syncopal episode with blood loss Patient Tobacco Use Status: Former Tobacco user Tobacco use type: Cigarette Years Smoked: 30 +/- e-Cigarette/Vaping Use: Never Used Second Hand Smoke Exposure: No service: No Current occupational status: unemployed Cognitive needs: No Hearing needs: No Vision needs: No Review of Systems Const All systems reviewed & are unremarkable except as noted in HPI and below Reports no additional complaints ENT Reports Normal hearing present Card Denies chest pain, Denies chest pain at rest, Denies chest pain with activity and Denies pedal edema Resp Denies cough GI Denies abdominal pain Musc Denies abnormal gait, Denies muscle cramps and Denies radiating pain into limb Skin/Breast Denies skin ulcer and Denies wounds Neuro Reports Normal hearing present and Denies abnormal gait Psych Reports no additional complaints Physical Exam Const General: cooperative, healthy appearing and comfortable Orientation/consciousness: oriented to person, oriented to place and oriented to time HEENT Head: Yes normal to inspection Neck Neck: Yes normal visual inspection Carotids: no bruits Chest Chest palpation & inspection: normal inspection of the chest Resp Effort & Inspection: normal respiratory effort and able to speak in complete sentences Auscultation: clear to auscultation bilaterally, no crackles, no rales, no rhonchi and no wheezes Cardio Other: Palpable brachial radial ulnar pulses Rate: regular rate Rhythm: regular rhythm Heart sounds: S1 normal heart sound present and S2 normal heart sound present Bruits: no carotid bruits Peripheral pulses: Peripheral pulses 2+ throughout GI Inspection: Yes normal to inspection Skin Wounds: no wounds Hair: normal Neuro General: oriented to person, oriented to place and oriented to time Cranial nerves: Yes CN's II-XII intact bilaterally and Yes Normal hearing present Cognition (Neuro): normal cognition Motor exam (neuro): 5/5 motor strength present throughout Extrem Other: venous exam: No significant superficial varicosities or spider telangiectasias, minimal edema General: No clubbing, No cyanosis and No edema Psych Appearance: grossly normal Mental Status: mental status grossly normal Speech and movement: Normal speech and movement present Assessment & Plan Assessment & Plan (1) CKD (chronic kidney disease) stage 5, GFR less than 15 ml/min: Code(s): N18.5 - Chronic kidney disease, stage 5 Category: Medical Plan: I discussed with the patient the progression of her chronic kidney disease and the necessity of dialysis. Options for creating a dialysis access were explored, with emphasis on a potential arteriovenous fistula in her left arm. She will require left upper extremity fistula creation. We reviewed the risks and benefits, including the procedural process, expected [id number] outcomes, and the healing timeframe. I confirmed her consent for further vascular ultrasound evaluation and subsequent surgical scheduling. Thank you for allowing us to participate in her care. If there are any questions or concerns please do not hesitate to contact us. Plan Patient was informed and verbally consented to the use of an ambient scribe for clinic note documentation during this visit. Patient Instructions: - Attend [facility]. - Prepare for the arteriovenous fistula procedure once ultrasound results confirm suitability. - Understand the healing period required before using the access for dialysis. - Follow any specific pre-operative instructions provided by the surgical team. Coding Level of Care Code Est Pt Level 4 (18579) Complex EM visit Add On G2211 Diagnoses CKD (chronic kidney disease) stage 5, GFR less than 15 ml/min N18.5
--- OUTSIDE RECORDS SUMMARY | 2024-11-06 11:28 | XMS_ITS ---
Author Organization [facility] Address [address] [place] [address] Care Team Providers Care Clinical Data Management Manager Name Role Phone Emanuel Scruggs Primary Care Provider [phone] Transplant Episode Kidney Candidate [facility] ([place], [place]) - [facility] Evaluation began on 09/01/2024 Marked as Active on 09/01/2024 Kidney CoordinatorKimber Fallon RN Fax: N/A Email: N/A Scores Score Value Updated Exceptions/Reas ons CPRA Not available EPTS (Calc) 27 11/06/2024 [place] Organ Diagnosis Organ Primary Contributory Kidney Hypertensive Nephrosclerosis Care Team Name Role Phone Fax Email Kimber Fallon RN Kidney Coordinator [phone] N/A N/A Danis Betancur Referring Physician [phone] N/A Events Pre-Transplant Referred: 07/07/2024 Evaluation began: 09/01/2024
--- OUTSIDE RECORDS SUMMARY | 2024-11-06 11:28 | XMS_ITS | Encounter Summary ---
Author Organization [facility] Address [address] [place] [address] Care Team Providers Care Convertible Power Shovel Operator Name Role Phone Emanuel Scruggs Primary Care Provider [phone] Encounter Details Date Type Department Care Team (Late st Contact Info) Description 10/08/2024 Telephone [facility] Transplant Department [address] [place], [place] [phone] Kimber Fallon RN [address] [place] [address] Social History Tobacco Use Types Packs/Day Years [...] PM EST No Authorization is required call [facility] [phone] spoke with Isabela Doherty Ref#[id number] documented in this encounter Plan of Treatment Not on file documented as of this encounter Visit Diagnoses Not on filedocumented in this encounter Care Teams Convertible Power Shovel Operator Relationship Specialty Start Date End Date Emanuel Scruggs [address] [place], [place] [phone] PCP - General 03/22/17 documented as of this encounter
--- OUTSIDE RECORDS SUMMARY | 2024-11-06 11:28 | XMS_ITS | Referral Summary ---
Author Organization [facility] Address [address] [place] [address] Care Team Providers Care Bowling Pin Refinisher Name Role Phone Emaneul Scruggs Primary Care Provider Encounters Date Type Department Care Team Description 10/08/2024 Telephone [facility] Transplant Department [address] [place] [address] Kimber Fallon, RN 10/01/2024 Orders Only [facility] Transplant Department [address] [place] [address] [phone] Tito Patricio MD Renovascular hypertension (Primary Dx) 09/23/2024 Telephone [facility] Transplant Department [address] [place] [phone] Kimber Fallon, RN 09/19/2024 Telephone [facility] Transplant Department [address] [place] [address] 109[address] Kimber Fallon, RN 09/01/2024 2:35 PM EST Lab [facility] [place] [facility] Draw Site [address] [place] [address] Pre-transplant evaluation for kidney transplant; Stage 4 chronic kidney disease (HCC) 09/01/2024 Orders Only [facility] Transplant Department [address] [place] [address] [phone] Kimber Fallon, RN Pre-transplant evaluation for kidney transplant (Primary Dx); Stage 4 chronic kidney disease (HCC) 09/01/2024 1:45 PM EST Social Work [facility] Renal Transplant [address] [place] [address] Thomas Freeman 09/01/2024 1:00 PM EST Office Visit [facility] Renal Transplant [address] [place] [address] Devante Juarez MD Heher, Eliot C, MD Pre-transplant evaluation for kidney transplant (Primary Dx); Chronic kidney disease, stage V (HCC) 09/01/2024 11:45 AM EST Evaluation [facility] Renal Transplant [address] [place] [address] [phone] Kimber Fallon RN Pre-transplant evaluation for kidney transplant (Primary Dx) 09/01/2024 11:15 AM EST Office Visit [facility] Renal Transplant [address] [place] [address] [phone] Karen Madrigal RN Pre-transplant evaluation for kidney transplant (Primary Dx) 08/28/2024 Telephone [facility] Transplant Department [address] [place] [address] [phone] Kimber Fallon, LEROY from Last 3 Months [...] Not on file Procedures * Due to [place] state law, this organization might not be [...] kidney disease (HCC) QUANTIFERON-TB GOLD PLUS, 1 [id number] Routine 09/01/2024 2:46 PM EST Pre-transplant evaluation for kidney transplant Stage 4 chronic kidney disease (HCC) RPR (DIAGNOSIS) W/REFLEX TO TITER & TPPA [id number] Routine 09/01/2024 2:46 PM EST Pre-transplant evaluation for kidney transplant Stage 4 chronic kidney disease (HCC) VARICELLA ZOSTER ANTIBODY, IGG Routine 09/01/2024 2:46 PM EST Pre-transplant evaluation for kidney transplant Stage 4 chronic kidney disease (HCC) HLA TRANSPLANT WORK-UP (ALLELE LEVEL A/B/C/DRB1/LXZ986/DQA1/ DQB1/DPA1/DPB1) Routine 09/01/2024 2:46 PM EST Pre-transplant [...] Last 3 Months Results * Due to [place] state law, this organization might not be sharing negative HIV tests. * HLA Transplan Work-Up(Allele Level A/B/C/DRB1/IML811/DQA1/DQB1/DPA1/DPB1) (09/01/2024 2:46 PM EST) Pathologist [facility] Histocompatibility Laboratory Information See Below 09/08/2024 4:42 PM EST [facility] Comment: SONYA: ?Director: ??Arabella Garcia MD. [facility] PFI: ??[id number] UNOS: ??[id number] This test [...] GISSELL Ramírez [facility] [address] [facility] Rm: [id number] [place] [address], * MMR Panel, IgG (09/01/2024 2:46 PM EST) Measles Antibody (IgG), Immune Status 122.00 AU/mL 09/02/2024 4:42 AM EST [facility] Comment: AU/mL ?Interpretation ----- ? <13.50 ? Not consistent with immunity 13.50-16.49 ?Equivocal >16.49 ? Consistent with immunity The presence of measles IgG suggests immunization or past or current infection with measles virus. For additional information, please refer to http://Myntra.Reading Rainbow/faq/FOA235 (This link is being provided for informational/ educational purposes only.) Mumps Antibody (IgG), Immune Status 11.90 AU/mL 09/02/2024 4:42 AM EST [facility] Comment: AU/mL ? Interpretation ------- ? <9.00 ? Not consistent with immunity 9.00-10.99 ?Equivocal >10.99 ?Consistent with immunity The presence of mumps IgG antibody suggests immunization or past or current infection with mumps virus. Rubella Antibody (IgG), Immune Status 6.46 Index 09/02/2024 4:42 AM EST [facility] Comment: ?Index ?Interpretation ?----- ?<0.90 ?Not consistent [...] LAB BLOOD ORDERABLES Final Resu lt [facility]AN [facility] [address] [facility] 3rd Floor, [place] [address], [place] [phone] [facility] 200 [facility] 3rd Floor, [place] [address], [place] [phone] * (ABNORMAL) Herpes Simplex Virus 1&2, IgG (09/01/2024 2:46 PM EST) [facility] HSV 1 IgG Type Specific Ab 38.20(H) index 09/02/2024 5:38 PM EST [facility] HSV 2 IgG Type Specific Ab 14.50(H) index 09/02/2024 5:38 PM EST [facility] Comment: ?Index ?Interpretation ?----- ?<0.90 ?Negative ?0.90-1.09 [...] screening. For additional information, please refer to http://education.tolingo.Plaxo/faq/QKE113 (This link is being provided for informational/ educational purposes only.) ?? Blood Structure of peripheral vein / Unknown Venipuncture / Unknown 09/01/2024 2:46 PM EST 09/01/2024 3:07 PM EST Narrative [facility] - 09/02/2024 5:38 PM EST [facility] Received Date: us Tito Patricio MD LAB BLOOD ORDERABLES Final Resu lt [facility] [address] [facility] 3rd Floor, [place] [address], [place] [phone] [facility] [address] [facility] 3rd Floor, [place] [address], [place] [phone] * RPR (Diagnosis) w/Reflex to Titer & TPPA Confirm (09/01/2024 2:46 PM EST) RPR W/Refl Titer NON-REACT MIKE NON-REACT MIKE 09/04/2024 12:24 PM EST [facility] Blood Structure of peripheral vein / Unknown Venipuncture / Unknown 09/01/2024 2:46 PM EST 09/01/2024 3:07 PM EST Narrative [facility] - 09/04/2024 12:24 PM EST [facility] Received Date: us Tito Patricio MD LAB BLOOD ORDERABLES Final Resu lt [facility] [address] [facility] 3rd Floor, [place] [address], [place] [phone] [facility] [address] [facility] [address]rd [facility], [place] [address], [place] [phone] * QuantiFERON-TB Gold Plus, 1 Tube (09/01/2024 2:46 PM EST) QuantiFERON-TB Gold Plus NEGATIVE NEGATIVE 09/04/2024 4:11 PM EST [facility] Comment: Negative test result. M. tuberculosis complex infection unlikely. NIL 0.05 IU/mL 09/04/2024 4:11 PM EST [facility] Mitogen-NIL 7.77 IU/mL 09/04/2024 4:11 PM EST [facility] TB1-NIL 0.05 IU/mL 09/04/2024 4:11 PM EST [facility] TB2-NIL 0.05 IU/mL 09/04/2024 4:11 PM EST [facility] Comment: The Nil tube value reflects the [...] T-lymphocytes. For additional information, please refer to https://education.Aidhenscorner/faq/WEM563 (This link is being provided for informational/ educational purposes only.) Blood Structure of peripheral vein / Unknown Venipuncture / Unknown 09/01/2024 2:46 PM EST 09/01/2024 3:06 PM EST Narrative [facility] - 09/04/2024 4:11 PM EST [facility] Received Date: us Tito Patricio MD LAB BLOOD ORDERABLES Final Resu lt DEJAN [address]rd Floor, [place] [address], [place] [phone] [facility] [address], [place] [address], [place] [phone] * (ABNORMAL) CBC Auto Differential (09/01/2024 2:46 PM EST) WBC 6.2 3.8 - 10.8 10*3/uL 09/01/2024 3:19 PM EST [facility] RBC 2.28(L) 3.80 - 5.10 10*6/uL 09/01/2024 3:19 PM EST [facility] Hemoglobin 6.6(LL) 11.7 - [...] <0.03 <=0.03 10*3/uL 09/01/2024 3:19 PM EST [facility] Lymphocyte # 1.80 0.85 - 3.90 10*3/uL 09/01/2024 3:19 PM EST [facility] Monocyte # 0.30 0.20 - 0.95 10*3/uL 09/01/2024 3:19 PM EST [facility] Eosinophil # 0.10 0.02 - 0.50 10*3/uL 09/01/2024 3:19 PM EST [facility] Basophil # <0.03 0.00 - 0.20 10*3/uL 09/01/2024 3:19 PM EST [facility] nRBC % 0.0 /100 WBCs 09/01/2024 3:19 PM [address] nRBC # <0.01 <0.01 10*3/uL 09/01/2024 3:19 PM EST [facility] Blood Structure of peripheral vein / Unknown Venipuncture / Unknown 09/01/2024 2:46 PM EST 09/01/2024 3:10 PM EST us Tito Patricio MD LAB BLOOD ORDERABLES Final Resu lt [facility] [address] [place] [address], * (ABNORMAL) Erick-Pierre Virus VCA Antibody Panel (09/01/2024 2:46 PM EST) EBV Viral Capsid Ag Ab (IGM) <36.00 U/mL 09/02/2024 11:27 AM EST [facility] Comment: ?U/mL ?Interpretation ?---- ?<36.00 ?Negative ?36.00-43.99 ? Equivocal ?>43.99 ?Positive EBV Viral Capsid Ag Ab (IGG) >750.00(H) U/mL 09/02/2024 11:27 AM [facility] Comment: ? U/mL ? Interpretation ? ---- ? <18.00 ? Negative ? 18.00-21.99 ?Equivocal ? >21.99 ? Positive EBV Nuclear Ag Ab <18.00 U/mL 11:27 AM [facility] Comment: ? U/mL ? Interpretation ? ---- ? <18.00 ? Negative ? 18.00-21.99 ?Equivocal ? >21.99 ? Positive Interpretation: See Comments 09/02/2024 11:27 AM [facility] Comment: Results indicate infection with EBV, but the time since primary infection cannot be determined due to the absence of both VCA IgM and EBNA IgG. Suggest repeat testing in 2-3 weeks if clinically indicated. Blood Structure of peripheral vein / Unknown Venipuncture / Unknown 09/01/2024 2:46 PM EST 09/01/2024 3:10 PM EST Narrative [facility] - 09/02/2024 11:27 AM EST [employer] Received Date: us Tito Patricio MD LAB BLOOD ORDERABLES Final Resu lt Performing Organization Address City/[facility]/ZIP Co de Phone Number DEJAN GALVEZ [address], [place] [address], [place] [phone] [facility] [address], [place] [address], [place] [phone] * Hepatitis C Antibody w/Reflex to PCR (09/01/2024 2:46 PM EST) Hepatitis C Antibody NON-REACT MIKE NON-REACT MIKE 09/02/2024 7:23 AM EST [facility] Comment: HCV antibody was non-reactive. There is no laboratory evidence of HCV infection. In most cases, no further action is required. However, if recent HCV exposure is suspected, a test for HCV RNA (test code 63297) is suggested. For additional information please refer to http://Myntra.Aidhenscorner/faq/DKP50q9 (This link is being provided for informational/ educational purposes only.) Blood Structure of peripheral vein / Unknown Venipuncture / Unknown 09/01/2024 2:46 PM EST 09/01/2024 3:07 PM EST Narrative [facility] - 09/02/2024 7:23 AM EST [facility] Received Date: us Tito Patricio MD LAB BLOOD ORDERABLES Final Resu lt Performing Organization Address City/[facility]/ZIP Co de Phone Number [facility] [address], [place] [address], [place] [phone] [facility] [address], [place] [address], [place] [phone] * (ABNORMAL) Hepatitis A Antibody, Total (09/01/2024 2:46 PM EST) Hepatitis A Ab, Total REACTIVE( A) NON-REACT MIKE 09/02/2024 7:18 AM EST [facility] Comment: For additional information, please refer to http://Myntra.Aidhenscorner/faq/VYO826 (This link is being provided for informational/ educational purposes only.) Blood Structure of peripheral vein / Unknown Venipuncture / Unknown 09/01/2024 2:46 PM EST 09/01/2024 3:10 PM EST [facility] 09/02/2024 7:18 AM EST [facility] Received Date: us Tito Patricio MD LAB BLOOD ORDERABLES Final Resu lt Performing Organization Address City/[facility]/ZIP Co de Phone Number [facility] [address], [place] [address], [place] [phone] [facility] [address], [place] [address], [place] [phone] * Hepatitis B Core Antibody, Total (09/01/2024 2:46 PM EST) Hepatitis B Core Ab Total NON-REACT MIKE NON-REACT MIKE 09/02/2024 5:13 PM EST [facility] Comment: For additional information, please refer to http://Myntra.Aidhenscorner/faq/HJU364 (This link is being provided for informational/ educational purposes only.) Blood Structure of peripheral vein / Unknown Venipuncture / Unknown 09/01/2024 2:46 PM EST 09/01/2024 3:07 PM EST Narrative [facility] 09/02/2024 5:13 PM EST [facility] Received Date:[id number] us Tito Patricio MD LAB BLOOD ORDERABLES Final Resu lt Performing Organization Address City/[facility]/ZIP Co de Phone Number [facility] [address], [place] [address], [place] [phone] [facility] [address], [place] [address], [place] [phone] * ABO/Rh Blood Type (09/01/2024 2:46 PM EST) Pathologist [facility] ABO Blood Type A 09/01/2024 4:03 PM EST [facility] RH Type Positive 09/01/2024 4:03 PM EST [facility] Blood Structure of peripheral vein / Unknown Venipuncture / Unknown 09/01/2024 2:46 PM EST 09/01/2024 3:11 PM EST us Tito Patricio MD LAB BLOOD BANK TEST ORDERABLES Final Result BLOOD BANK INFCE [address] [place] [address], [place] [phone] * Hepatitis B Surface Antibody (09/01/2024 2:46 PM EST) Pathologist [facility] Hepatitis B Surface Ab Immunity, Qn 96 > OR = 10 mIU/mL 09/02/2024 6:38 AM EST [facility] Comment: PATIENT HAS IMMUNITY TO HEPATITIS B VIRUS. For additional information, please refer to http://education.Aidhenscorner/faq/THJ574 (This link is being provided for informational/ educational purposes only). Blood Structure of peripheral vein / Unknown Venipuncture / Unknown 09/01/2024 2:46 PM EST 09/01/2024 3:10 PM EST Narrative [facility] - 09/02/2024 6:38 AM EST [facility] Received Date: us Tito Patricio MD LAB BLOOD ORDERABLES Final Resu lt [facility] 200 [facility] 3rd Floor, [place] [address], [place] [phone] [facility] 200 [facility] 3rd Floor, [place] [address], [place] [phone] * Hepatitis B Surface Antigen w/Confirmation (09/01/2024 2:46 PM EST) Pathologist [facility] Hepatitis B Surface Antigen NON-REACT MIKE NON-REACT MIKE 09/02/2024 6:01 AM EST [facility] Comment: For additional information, please refer to http://education.Aidhenscorner/faq/CFY754 (This link is being provided for informational/ educational purposes only.) Blood Structure of peripheral vein / Unknown Venipuncture / Unknown 09/01/2024 2:46 PM EST 09/01/2024 3:07 PM EST Narrative [facility] - 09/02/2024 6:01 AM EST [facility] Received Date: us Tito Patricio MD LAB BLOOD ORDERABLES Final Resu lt [facility] 200 [facility] 3rd Floor, [place] [address], [facility] [address], [place] [address], * (ABNORMAL) Cytomegalovirus Antibody, IgG (09/01/2024 2:46 PM EST) Cytomegalovirus Antibody (IgG) >10.00(H ) U/mL 09/02/2024 4:42 AM EST [facility] Comment: ? U/mL ? Interpretation ? ----- ? <0.60 ? Negative ? 0.60-0.69 ? Equivocal ? > or = 0.70 ?? Positive A positive result indicates that the patient has antibody to CMV. It does not differentiate between an active or past infection. Blood Structure of peripheral vein / Unknown Venipuncture / Unknown 09/01/2024 2:46 PM EST 09/01/2024 3:07 PM EST Narrative [facility] 09/02/2024 4:42 AM EST [facility] Received Date: us Tito Patricio MD LAB BLOOD ORDERABLES Final Resu lt [address]rd [address], [place] [address], [place] [phone] [facility] [address], [place] [address], [place] [phone] * PTT (09/01/2024 2:46 PM EST) aPTT 26.8 23.0 - 32.0 Seconds 09/01/2024 3:27 PM EST [facility] Comment: Current PTT reagent is not sensitive to detect all Lupus Anticoagulant (LA) Inhibitor Cases. ?? If a LA is suspected, please order a Lupus Anticoagulation w/ Reflex Test which is performed at [facility] in [place], [place]. Blood Structure of peripheral vein / Unknown Venipuncture / Unknown 09/01/2024 2:46 PM EST 09/01/2024 3:07 PM EST us Tito Patricio MD LAB BLOOD ORDERABLES Final Resu lt [facility] [address] [place] [address], * Protime-INR (09/01/2024 2:46 PM EST) PT 10.0 9.6 - 12.4 Seconds 09/01/2024 3:27 PM EST [facility] INR 0.9 0.9 - 1.1 09/01/2024 3:27 PM EST [facility] Comment:The optimal therapeu tic INR range for patients treated with Vitamin K antagonists (VKAS, e.g., Warfarin) is 2.0 to 3.5. Discuss the desired range with your doctor/care team. Blood Structure of peripheral vein / Unknown Venipuncture / Unknown 09/01/2024 2:46 PM EST 09/01/2024 3:07 PM EST us Tito Patricio MD LAB BLOOD ORDERABLES Final Resu lt [facility] [address] [place] [address], * Varicella Zoster Antibody, IgG (09/01/2024 2:46 PM EST) Varicella Zoster Virus Antibody 26.10 S/CO 09/02/2024 5:29 PM EST [facility] Comment: ?Signal to Cut-off ? S/CO ?Interpretation [...] EST 09/01/2024 3:07 PM EST Narrative [facility] - 09/02/2024 5:29 PM EST [facility] Received Date: us Tito Patricio MD LAB BLOOD ORDERABLES Final Resu lt Performing Organization Address City/[facility]/ZIP Co de Phone Number [facility] [address] [facility] 3rd Floor, [place] [address], [place] [phone] [facility] [address], [place] [address], [place] [phone] * (ABNORMAL) BUN (09/01/2024 2:46 PM EST) BUN 87(H) 7 - 23 mg/dL 09/01/2024 3:52 PM EST [facility] Blood Structure of peripheral vein / Unknown Venipuncture / Unknown 09/01/2024 2:46 PM EST 09/01/2024 3:10 PM EST us Tito Patricio MD LAB BLOOD ORDERABLES Final Resu lt Performing Organization Address [facility]/ZIP Co de Phone Number [facility] [address] [place] [address], * ALT (09/01/2024 2:46 PM EST) ALT 10 10 - 40 U/L 09/01/2024 3:52 PM EST [facility] Blood Structure of peripheral vein / Unknown Venipuncture / Unknown 09/01/2024 2:46 PM EST 09/01/2024 3:10 PM EST us Tito Patricio MD LAB BLOOD ORDERABLES Final Resu lt [facility] [address] [place] [address], * AST (09/01/2024 2:46 PM EST) AST 12 10 - 40 U/L 09/01/2024 3:52 PM EST [facility] Blood Structure of peripheral vein / Unknown Venipuncture / Unknown 09/01/2024 2:46 PM EST 09/01/2024 3:10 PM EST Tito Patricio MD LAB BLOOD ORDERABLES Final Resu lt Performing Organization Address [facility] de Phone Number [facility] [address] [place] [address], * (ABNORMAL) Phosphorus (09/01/2024 2:46 PM EST) Pathologist [facility] Phosphorus 8.2(H) 2.5 - 4.5 mg/dL 09/01/2024 3:52 PM EST [facility] Blood Structure of peripheral vein / Unknown Venipuncture / Unknown 09/01/2024 2:46 PM EST 09/01/2024 3:10 PM EST Tito Patricio MD LAB BLOOD ORDERABLES Final Resu lt Performing Organization Address [facility] de Phone Number [facility] [address] [place] [address], * (ABNORMAL) PTH, Intact (without Calcium) (09/01/2024 2:46 PM EST) Parathyroid Hormone, Intact 1488(H) 16 - 77 pg/mL 09/03/2024 7:22 AM EST [facility] Comment: Interpretive Guide ?Intact PTH ? Calcium [...] EST 09/01/2024 3:10 PM EST Narrative [facility] - 09/03/2024 7:22 AM EST [facility] Received Date: Tito Patricio MD LAB BLOOD ORDERABLES Final Resu lt [facility] 200 [facility] 3rd Floor, [place] [address], [place] [phone] [facility] 200 [facility] 3rd Floor, [place] [address], * (ABNORMAL) Creatinine (09/01/2024 2:46 PM EST) Creatinine 6.72(H) 0.50 - 1.20 mg/dL 09/01/2024 3:52 PM EST [facility] eGFR 7(L) >=60 mL/min/1 .73m2 09/01/2024 3:52 PM EST [facility] Comment:The estimated glomer ular [...] ORDERABLES Final Resu lt Performing Organization Address City/[facility]/ZIP Co de Phone Number [facility] [address] [place] [address], * (ABNORMAL) Calcium (09/01/2024 2:46 PM EST) Calcium 8.1(L) 8.6 - 10.5 mg/dL 09/01/2024 3:52 PM EST [facility] Blood Structure of peripheral vein / Unknown Venipuncture / Unknown 09/01/2024 2:46 PM EST 09/01/2024 3:10 PM EST us Tito Patricio MD LAB BLOOD ORDERABLES Final Resu lt Performing Organization Address City/[facility]/ZIP Co de Phone Number [facility] [address] [place] [address], * Bilirubin, Direct (09/01/2024 2:46 PM EST) Bilirubin, Direct <0.1 <=0.4 mg/dL 09/01/2024 3:54 PM EST [facility] Blood Structure of peripheral vein / Unknown Venipuncture / Unknown 09/01/2024 2:46 PM EST 09/01/2024 3:10 PM EST us Tito Patricio MD LAB BLOOD ORDERABLES Final Resu lt Performing Organization Address [facility] Co de Phone Number [facility] [address] [place] [id number] * (ABNORMAL) Bilirubin, Total (09/01/2024 2:46 PM EST) Bilirubin, Total <0.2(L) 0.2 - 1.2 mg/dL 09/01/2024 3:54 PM EST [facility] Blood Structure of peripheral vein / Unknown Venipuncture / Unknown 09/01/2024 2:46 PM EST 09/01/2024 3:10 PM EST Tito Patricio MD LAB BLOOD ORDERABLES Final Resu lt Performing Organization Address [facility] Co de Phone Number [facility] [address] [place] [address] * Albumin (09/01/2024 2:46 PM EST) Albumin 4.0 3.5 - 5.2 g/dL 09/01/2024 3:52 PM EST [facility] Blood Structure of peripheral vein / Unknown Venipuncture / Unknown 09/01/2024 2:46 PM EST 09/01/2024 3:10 PM EST Tito Patricio MD LAB BLOOD ORDERABLES Final Resu lt Performing Organization Address City/[facility]/ZIP Co de Phone Number [facility] [address] [place] [address], from Last [address] [place] [address] [facility] Care Teams Bowling Pin Refinisher Relationship Specialty Start Date End Date Emanuel Scruggs [address] [place] [id number] PCP - General 03/22/17
--- OUTSIDE RECORDS SUMMARY | 2024-11-06 11:28 | XMS_ITS | Clinical Summary ---
Author Organization [facility] Address [address] [place] [address] Care Team Providers Care Clinical Research Coordinator Name Role Phone Emanuel Scruggs Primary Care Provider [phone] Allergies Active Allergy Reactions Criticality Noted Date [...] Type Department Care Team Description 10/08/2024 Telephone [facility] Transplant Department [address] [place] [address] Kimber Fallon RN 10/01/2024 Orders Only [facility] Transplant Department [address] [place] [address] Tito Patricio MD Renovascular hypertension (Primary Dx) 09/23/2024 Telephone [facility] Transplant Department [address] [place] [address] Kimber Fallon RN 09/19/2024 Telephone [facility] Transplant Department [address] [place] [phone] Kimber Fallon, LEROY 09/01/2024 2:35 PM EST Lab [facility] [place] [facility] Draw Site [address] [place] [address] Pre-transplant evaluation for kidney transplant; Stage 4 chronic kidney disease (HCC) 09/01/2024 1:45 PM EST Social Work [facility] Renal Transplant [address] [place] [phone] Thomas Freeman 09/01/2024 1:00 PM EST Office Visit [facility] Renal Transplant [address] [place] [address] Devante Juarez MD Heher, Eliot C, MD Pre-transplant evaluation for kidney transplant (Primary Dx); Chronic kidney disease, stage V (HCC) 09/01/2024 11:45 AM EST Evaluation [facility] Renal Transplant [address] [place] [phone] Kimber Fallon RN Pre-transplant evaluation for kidney transplant (Primary Dx) 09/01/2024 11:15 AM EST Office Visit [facility] Renal Transplant [address] [place] [phone] Karen Madrigal RN Pre-transplant evaluation for kidney transplant (Primary Dx) 09/01/2024 Orders Only [facility] Transplant Department [address] [place] [phone] Kimber Fallon RN Pre-transplant evaluation for kidney transplant (Primary Dx); Stage 4 chronic kidney disease (HCC) 08/28/2024 Telephone [facility] Transplant Department [address] [place] [phone] Kimber Fallon RN from Last 3 Months [...] Screening Completed 09/01/2024 Procedures * Due to [place] state law, [...] kidney disease (HCC) QUANTIFERON-TB GOLD PLUS, 1 [id number] Routine 09/01/2024 2:46 PM EST Pre-transplant evaluation for kidney transplant Stage 4 chronic kidney disease (HCC) RPR (DIAGNOSIS) W/REFLEX TO TITER & TPPA [id number] Routine 09/01/2024 2:46 PM EST Pre-transplant evaluation for kidney transplant Stage 4 chronic kidney disease (HCC) VARICELLA ZOSTER ANTIBODY, IGG Routine 09/01/2024 2:46 PM EST Pre-transplant evaluation for kidney transplant Stage 4 chronic kidney disease (HCC) HLA TRANSPLANT WORK-UP (ALLELE LEVEL A/B/C/DRB1/UOP243/DQA1/ DQB1/DPA1/DPB1) Routine 09/01/2024 2:46 PM EST Pre-transplant [...] HIV tests. * HLA Transplan Work-Up(Allele Level A/B/C/DRB1/DTZ814/DQA1/DQB1/DPA1/DPB1) (09/01/2024 2:46 PM EST) Pathologist [facility]ibility Laboratory Information See Below 09/08/2024 4:42 PM EST [facility] Comment: SONYA: ??[id number] ?Director: ??Arabella Garcia MD. [facility] PFI: ??[id number] UNOS: ??[id number] This test [...] DATA NOT REPORTED 09/08/2024 4:42 PM EST [facility] Blood Structure of peripheral vein / Unknown Venipuncture / Unknown 09/01/2024 2:46 PM EST 09/01/2024 3:08 PM EST us Tito Patricio MD HLA LAB ORDERABLES Edited Resul t - Final [facility] [address] Rm: [id number] [place] [address], * MMR Panel, IgG (09/01/2024 2:46 PM EST) Measles Antibody (IgG), Immune Status 122.00 AU/mL 09/02/2024 4:42 AM EST [facility] Comment: AU/mL ?Interpretation ----- ? <13.50 ? Not consistent with immunity 13.50-16.49 ?Equivocal >16.49 ? Consistent with immunity The presence of measles IgG suggests immunization or past or current infection with measles virus. For additional information, please refer to http://Colppy.Essential Medical/faq/YBM190 (This link is being provided for informational/ educational purposes only.) Mumps Antibody (IgG), Immune Status 11.90 AU/mL 09/02/2024 4:42 AM EST [facility] Comment: AU/mL ? Interpretation ------- ? <9.00 ? Not consistent with immunity 9.00-10.99 ?Equivocal >10.99 ?Consistent with immunity The presence of mumps IgG antibody suggests immunization or past or current infection with mumps virus. Rubella Antibody (IgG), Immune Status 6.46 Index 09/02/2024 4:42 AM EST [facility] Comment: ?Index ?Interpretation ?----- ?<0.90 ?Not consistent with immunity ?0.90-0.99 ?Equivocal ?> or = 1.00 ?Consistent with immunity The presence of rubella IgG antibody suggests immunization or past or current infection with rubella virus. Blood Structure of peripheral vein / Unknown Venipuncture / Unknown 09/01/2024 2:46 PM EST 09/01/2024 3:07 PM EST [facility] [place] - 09/02/2024 4:42 AM EST [facility] Received Date: us Tito Patricio MD LAB BLOOD ORDERABLES Final Resu lt Performing Organization Address City/State/[facility] Co de Phone Number [facility] [address] [facility] [address]rd Floor, [place] [address], [facility] [address], [place] [address], * (ABNORMAL) Herpes Simplex Virus 1&2, IgG (09/01/2024 2:46 PM EST) HSV 1 IgG Type Specific Ab 38.20(H) index 09/02/2024 5:38 PM EST [facility] HSV 2 IgG Type Specific Ab 14.50(H) index 09/02/2024 5:38 PM EST [facility] Comment: ?Index ?Interpretation ?----- ?<0.90 ?Negative ?0.90-1.09 [...] screening. For additional information, please refer to http://education.trueEX.FireID/faq/MIR403 (This link is being provided for informational/ educational purposes only.) ?? Blood Structure of peripheral vein / Unknown Venipuncture / Unknown 09/01/2024 2:46 PM EST 09/01/2024 3:07 PM EST Narrative [facility] - 09/02/2024 5:38 PM EST [facility] Received Date: us Tito Patricio MD LAB BLOOD ORDERABLES Final Resu lt [facility] [place] [address] [facility] [address]rd Floor, [place] [address], [place] [phone] [facility] [address], [place] [address], * RPR (Diagnosis) w/Reflex to Titer & TPPA Confirm (09/01/2024 2:46 PM EST) RPR W/Refl Titer NON-REACT MIKE NON-REACT MIKE 09/04/2024 12:24 PM EST [facility] Blood Structure of peripheral vein / Unknown Venipuncture / Unknown 09/01/2024 2:46 PM EST 09/01/2024 3:07 PM EST Narrative [facility] [place] - 09/04/2024 12:24 PM EST [facility] Received Date: Tito aPtricio MD LAB BLOOD ORDERABLES Final Resu lt [facility] [address] [facility] [address] Floor, [place] [address], [facility] [address] [facility] [address], [place] [address], * QuantiFERON-TB Gold Plus, 1 Tube (09/01/2024 2:46 PM EST) Pathologist [facility] QuantiFERON-TB Gold Plus NEGATIVE NEGATIVE 09/04/2024 4:11 PM EST [facility] Comment: Negative test result. M. tuberculosis complex infection unlikely. NIL 0.05 IU/mL 09/04/2024 4:11 PM EST [facility] Mitogen-NIL 7.77 IU/mL 09/04/2024 4:11 PM EST [facility] TB1-NIL 0.05 IU/mL 09/04/2024 4:11 PM EST [facility] TB2-NIL 0.05 IU/mL 09/04/2024 4:11 PM EST [facility] Comment: The Nil tube value reflects [...] T-lymphocytes. For additional information, please refer to https://education.Facebook/faq/TJD225 (This link is being provided for informational/ educational purposes only.) Blood Structure of peripheral vein / Unknown Venipuncture / Unknown 09/01/2024 2:46 PM EST 09/01/2024 3:06 PM EST Narrative [facility] [place] - 09/04/2024 4:11 PM EST [facility] Received Date: us Tito Patricio MD LAB BLOOD ORDERABLES Final Resu lt [facility] [place] [address] [facility] [address] Floor, [place] [address], [place] [phone] [facility] [address], [place] [address], [place] [phone] * (ABNORMAL) CBC Auto Differential (09/01/2024 2:46 PM EST) WBC 6.2 3.8 - 10.8 10*3/uL 09/01/2024 3:19 PM EST [facility] RBC 2.28(L) 3.80 - 5.10 10*6/uL 09/01/2024 3:19 PM EST [facility] Hemoglobin 6.6(LL) 11.7 - 15.5 g/dL 09/01/2024 3:19 PM EST [facility] Hematocrit 22.3(L) 35.0 - 45.0 % 09/01/2024 3:19 PM EST [facility] MCV 97.8 80.0 - 100.0 fL 09/01/2024 3:19 PM EST [facility] MCH 28.9 27.0 - 33.0 pg 09/01/2024 3:19 PM EST [facility] MCHC 29.6(L) [...] - 0.50 10*3/uL 09/01/2024 3:19 PM EST [facility] LAB[facility] Basophil # <0.03 0.00 - 0.20 10*3/uL 09/01/2024 3:19 PM EST [facility] nRBC % 0.0 /100 WBCs 09/01/2024 3:19 PM EST [facility] nRBC # <0.01 <0.01 10*3/uL 09/01/2024 3:19 PM EST [facility] Blood Structure of peripheral vein / Unknown Venipuncture / Unknown 09/01/2024 2:46 PM EST 09/01/2024 3:10 PM EST us Tito Patricio MD LAB BLOOD ORDERABLES Final Resu lt [facility] LAB[facility] [address] [place] [address], * (ABNORMAL) Erick-Pierre Virus VCA Antibody Panel (09/01/2024 2:46 PM EST) EBV Viral Capsid Ag Ab (IGM) <36.00 U/mL 09/02/2024 11:27 AM [facility] Comment: ?U/mL ?Interpretation ?---- ?<36.00 ?Negative ?36.00-43.99 ? Equivocal ?>43.99 ?Positive EBV Viral Capsid Ag Ab (IGG) >750.00(H) U/mL 09/02/2024 11:27 AM [facility] Comment: ? U/mL ? Interpretation ? ---- ? <18.00 ? Negative ? 18.00-21.99 ?Equivocal ? >21.99 ? Positive EBV Nuclear Ag Ab <18.00 U/mL 024 11:27 AM EST [facility] Comment: ? U/mL ? Interpretation ? ---- ? <18.00 ? Negative ? 18.00-21.99 ?Equivocal ? >21.99 ? Positive Interpretation: See Comments 09/02/2024 11:27 AM EST [facility] Comment: Results indicate infection with EBV, but the time since primary infection cannot be determined due to the absence of both VCA IgM and EBNA IgG. Suggest repeat testing in 2-3 weeks if clinically indicated. Blood Structure of peripheral vein / Unknown Venipuncture / Unknown 09/01/2024 2:46 PM EST 09/01/2024 3:10 PM EST [facility] [place] - 09/02/2024 11:27 AM EST [facility] Received Date: us Tito Patricio MD LAB BLOOD ORDERABLES Final Resu lt [facility] [address] [facility] [address]rd Floor, [place] [address], [place] [phone] [facility] [address] [facility] [address], [place] [address], [place] [phone] * Hepatitis C Antibody w/Reflex to PCR (09/01/2024 2:46 PM EST) Hepatitis C Antibody NON-REACT MIKE NON-REACT MIKE 09/02/2024 7:23 AM EST [facility] Comment: HCV antibody was non-reactive. There is no laboratory evidence of HCV infection. In most cases, no further action is required. However, if recent HCV exposure is suspected, a test for HCV RNA (test code 03619) is suggested. For additional information please refer to http://Colppy.Facebook/faq/MPI78u3 (This link is being provided for informational/ educational purposes only.) Blood Structure of peripheral vein / Unknown Venipuncture / Unknown 09/01/2024 2:46 PM EST 09/01/2024 3:07 PM EST Narrative [facility] [place] - 09/02/2024 7:23 AM EST [facility] Received Date: us Tito Patricio MD LAB BLOOD ORDERABLES Final Resu lt [facility] [address] [facility] [address], [place] [address], [facility] [address] [facility] [address], [place] [address], * (ABNORMAL) Hepatitis A Antibody, Total (09/01/2024 2:46 PM EST) Hepatitis A Ab, Total REACTIVE( A) NON-REACT MIKE 09/02/2024 7:18 AM EST [facility] Comment: For additional information, please refer to http://Colppy.Cross Mediaworks.FireID/faq/NMQ927 (This link is being provided for informational/ educational purposes only.) Blood Structure of peripheral vein / Unknown Venipuncture / Unknown 09/01/2024 2:46 PM EST 09/01/2024 3:10 PM EST Narrative [facility] [place] - 09/02/2024 7:18 AM EST [facility] Received Date: us Tito Patricio MD LAB BLOOD ORDERABLES Final Resu lt Performing Organization Address City/[facility]/ZIP Co de Phone Number [facility] [address], [place] [address], [place] [phone] [facility] [address], [place] [address], [place] [phone] * Hepatitis B Core Antibody, Total (09/01/2024 2:46 PM EST) Hepatitis B Core Ab Total NON-REACT MIKE NON-REACT MIKE 09/02/2024 5:13 PM EST [facility] Comment: For additional information, please refer to http://education.Facebook/faq/NFI972 (This link is being provided for informational/ educational purposes only.) Blood Structure of peripheral vein / Unknown Venipuncture / Unknown 09/01/2024 2:46 PM EST 09/01/2024 3:07 PM EST Narrative [facility] [place] - 09/02/2024 5:13 PM EST [facility] Received Date: us Tito Patricio MD LAB BLOOD ORDERABLES Final Resu lt [facility] [address], [place] [address], [place] [phone] [facility] [address], [place] [address], [place] [phone] * ABO/Rh Blood Type (09/01/2024 2:46 PM [...] Final Result [facility] [address] [place] [address], * Hepatitis B Surface Antibody (09/01/2024 2:46 PM EST) Hepatitis B Surface Ab Immunity, Qn 96 > OR = 10 mIU/mL 09/02/2024 6:38 AM EST [facility] Comment: PATIENT HAS IMMUNITY TO HEPATITIS B VIRUS. For additional information, please refer to http://Colppy.Facebook/faq/UVZ602 (This link is being provided for informational/ educational purposes only). Blood Structure of peripheral vein / Unknown Venipuncture / Unknown 09/01/2024 2:46 PM EST 09/01/2024 3:10 PM EST Narrative [facility] [place] - 09/02/2024 6:38 AM EST [facility] Received Date: Tito Patricio MD LAB BLOOD ORDERABLES Final Resu lt Performing Organization Address City/[facility]/ZIP Co de Phone Number [facility] [address] [facility] [address], [place] [address], [place] [phone] [facility] [address] [facility] [address], [place] [address], [place] [phone] * Hepatitis B Surface Antigen w/Confirmation (09/01/2024 2:46 PM EST) Pathologist [facility] Hepatitis B Surface Antigen NON-REACT MIKE NON-REACT MIKE 09/02/2024 6:01 AM EST [facility] Comment: For additional information, please refer to http://Colppy.Facebook/faq/CIN121 (This link is being provided for informational/ educational purposes only.) Blood Structure of peripheral vein / Unknown Venipuncture / Unknown 09/01/2024 2:46 PM EST 09/01/2024 3:07 PM EST Narrative [facility] - 09/02/2024 6:01 AM EST [facility] Received Date: Tito Patricio MD LAB BLOOD ORDERABLES Final Resu lt [facility] [address] [facility] [address], [place] [address], [facility] [address] [facility] [address], [place] [address], * (ABNORMAL) Cytomegalovirus Antibody, IgG (09/01/2024 2:46 PM EST) Cytomegalovirus Antibody (IgG) >10.00(H ) U/mL 09/02/2024 4:42 AM EST [facility] Comment: ? U/mL ? Interpretation ? ----- [...] MD LAB BLOOD ORDERABLES Final Resu lt [facility] [place] [address] [facility] [address], [place] [address], [place] [phone] [facility] [address] [facility] [address], [place] [address], [place] [phone] * PTT (09/01/2024 2:46 PM EST) aPTT 26.8 23.0 - 32.0 Seconds 09/01/2024 3:27 PM EST [facility] Comment: Current PTT reagent is not sensitive to detect all Lupus Anticoagulant (LA) Inhibitor Cases. ?? If a LA is suspected, please order a Lupus Anticoagulation w/ Reflex Test which is performed at [facility] in [place], [place]. Blood Structure of peripheral vein / Unknown Venipuncture / Unknown 09/01/2024 2:46 PM EST 09/01/2024 3:07 PM EST Tito Patricio MD LAB BLOOD ORDERABLES Final Resu lt [facility] [address] [place] [address], * Protime-INR (09/01/2024 2:46 PM EST) PT 10.0 9.6 - 12.4 Seconds 09/01/2024 3:27 PM EST [facility] INR 0.9 0.9 - 1.1 09/01/2024 3:27 PM EST [facility] Comment:The optimal therapeu tic INR range for patients treated with Vitamin K antagonists (VKAS, e.g., Warfarin) is 2.0 to 3.5. Discuss the desired range with your doctor/care team. Blood Structure of peripheral vein / Unknown Venipuncture / Unknown 09/01/2024 2:46 PM EST 09/01/2024 3:07 PM EST Tito Patricio MD LAB BLOOD ORDERABLES Final Resu lt Performing Organization Address [facility] Phone Number [facility] [address] [place] [address], * Varicella Zoster Antibody, IgG (09/01/2024 2:46 PM EST) Varicella Zoster Virus Antibody 26.10 S/CO 09/02/2024 5:29 PM EST [facility] Comment: ?Signal to Cut-off ? S/CO ?Interpretation [...] EST 09/01/2024 3:07 PM EST Narrative [facility] - 09/02/2024 5:29 PM EST [facility] Received Date: Tito Patricio MD LAB BLOOD ORDERABLES Final Resu lt Performing Organization Address City/[facility]/ZIP Co de Phone Number [facility] [address] [facility] [address], [place] [address], [place] [phone] [facility] [address] [facility] [address], [place] [address], [place] [phone] * (ABNORMAL) BUN (09/01/2024 2:46 PM EST) BUN 87(H) 7 - 23 mg/dL 09/01/2024 3:52 PM EST [facility] Blood Structure of peripheral vein / Unknown Venipuncture / Unknown 09/01/2024 2:46 PM EST 09/01/2024 3:10 PM EST us Tito Patricio MD LAB BLOOD ORDERABLES Final Resu lt Performing Organization Address City/[facility]/ZIP Co de Phone Number [facility] [address] [place] [address], [place] * ALT (09/01/2024 2:46 PM EST) ALT 10 10 - 40 U/L 09/01/2024 3:52 PM EST [facility] Blood Structure of peripheral vein / Unknown Venipuncture / Unknown 09/01/2024 2:46 PM EST 09/01/2024 3:10 PM EST us Tito Patricio MD LAB BLOOD ORDERABLES Final Resu lt Performing Organization Address City/[facility]/ZIP Co de Phone Number [facility] [address] [place] [address], [place] * AST (09/01/2024 2:46 PM EST) AST 12 10 - 40 U/L 09/01/2024 3:52 PM EST [facility] Blood Structure of peripheral vein / Unknown Venipuncture / Unknown 09/01/2024 2:46 PM EST 09/01/2024 3:10 PM EST Tito Patricio MD LAB BLOOD ORDERABLES Final Resu lt Performing Organization Address [facility] de Phone Number [facility] [address] [place] [address], * (ABNORMAL) Phosphorus (09/01/2024 2:46 PM EST) Pathologist [facility] Phosphorus 8.2(H) 2.5 - 4.5 mg/dL 09/01/2024 3:52 PM EST [facility] Blood Structure of peripheral vein / Unknown Venipuncture / Unknown 09/01/2024 2:46 PM EST 09/01/2024 3:10 PM EST Tito Patricio MD LAB BLOOD ORDERABLES Final Resu Performing Organization Address [facility] de Phone Number [facility] [address] [place] [address], * (ABNORMAL) PTH, Intact (without Calcium) (09/01/2024 2:46 PM EST) [facility] Parathyroid Hormone, Intact 1488(H) 16 - 77 pg/mL 09/03/2024 7:22 AM EST [facility] Comment: Interpretive Guide ?Intact PTH ? Calcium [...] LAB BLOOD ORDERABLES Final Resu lt [facility] [place] [address] [facility] [address], [place] [address], [facility] [address] [facility] [address], [place] [address], * (ABNORMAL) Creatinine (09/01/2024 2:46 PM EST) Creatinine 6.72(H) 0.50 - 1.20 mg/dL 09/01/2024 3:52 PM EST [facility] eGFR 7(L) >=60 mL/min/1 .73m2 09/01/2024 3:52 PM EST [facility] Comment:The estimated glomer ular [...] Resu lt Performing Organization Address [facility] Co de Phone Number [facility] [address] [place] [address], * (ABNORMAL) Calcium (09/01/2024 2:46 PM EST) Calcium 8.1(L) 8.6 - 10.5 mg/dL 09/01/2024 3:52 PM EST [facility] Blood Structure of peripheral vein / Unknown Venipuncture / Unknown 09/01/2024 2:46 PM EST 09/01/2024 3:10 PM EST us Tito Patricio MD LAB BLOOD ORDERABLES Final Resu lt Performing Organization Address [facility] Co de Phone Number [facility] [address] [place] [address], [place] * Bilirubin, Direct (09/01/2024 2:46 PM EST) Bilirubin, Direct <0.1 <=0.4 mg/dL 09/01/2024 3:54 PM EST [facility] Blood Structure of peripheral vein / Unknown Venipuncture / Unknown 09/01/2024 2:46 PM EST 09/01/2024 3:10 PM EST us Tito Patricio MD LAB BLOOD ORDERABLES Final Resu lt Performing Organization Address [facility]/ZIP Co de Phone Number [facility] [address] [place] [address], * (ABNORMAL) Bilirubin, Total (09/01/2024 2:46 PM EST) Bilirubin, Total <0.2(L) 0.2 - 1.2 mg/dL 09/01/2024 3:54 PM EST [facility] Blood Structure of peripheral vein / Unknown Venipuncture / Unknown 09/01/2024 2:46 PM EST 09/01/2024 3:10 PM EST Tito Patricio MD LAB BLOOD ORDERABLES Final Resu lt Performing Organization Address City/[facility]/ZIP Co de Phone Number [facility] [address] [place] [address], * Albumin (09/01/2024 2:46 PM EST) Albumin 4.0 3.5 - 5.2 g/dL 09/01/2024 3:52 PM EST [facility] Blood Structure of peripheral vein / Unknown Venipuncture / Unknown 09/01/2024 2:46 PM EST 09/01/2024 3:10 PM EST Tito Patricio MD LAB BLOOD ORDERABLES Final Resu lt Performing Organization Address City/[facility]/ZIP Co de Phone Number [facility] [address] [place] [address], from Last [address] [place] [address] [place] [address] [place] [id number] [facility] [place] [id number] Care Teams Clinical Research Coordinator Relationship Specialty Start Date End Date Emanuel Scruggs [address] [place] [id number] PCP - General 03/22/17
--- OUTSIDE RECORDS SUMMARY | 2024-11-06 11:28 | XMS_ITS | Clinical Summary ---
Author Organization [facility] Facility Address [address] [place] [id number] Care Team Providers Care Manager House Name Role Phone Mary Garcia LISA Primary Care Provider [phone] Allergies Active Allergy Reactions Criticality Noted Date [...] in the evening. Active ergocalciferol 1.25 MG (45923 UT) capsule Take 1 capsule by mouth [...] (#1) 2024 Insurance [place] [id number] [facility] [place] [id number] Care Teams Manager House Relationship Specialty Start Date End Date Mary Garcia FNP [address] [place] [address] PCP - General 06/19/22
== END 2024-11-06 10:39 | disposition home or self-care (01) ==
PROVIDERS: PCP Internal Medicine; Visit Provider Surgery Vascular Surgery
DX: N18.5 Chronic kidney disease, stage 5 (principal)
CPT/HCPCS: 99214; G2211

== ENCOUNTER → 2024-11-06 09:54 | Outpatient (BNVA) | payer OTHER, SELFPAY | PROVIDERS: PCP Internal Medicine; Visit Provider Surgery Vascular Surgery | DX: I12.0 Hypertensive chronic kidney disease with stage 5 chronic kidney disease or end stage renal disease (principal); N18.5 Chronic kidney disease, stage 5 | CPT/HCPCS: 99212 ==

== ENCOUNTER 2024-11-14 21:44 | Inpatient (IN) | payer OTHER, SELFPAY ==
--- NOTE | ~2024-11-14 | IR_ITS ---
Ultrasound-guided fine procedure was dictated with fluoroscopy procedure accession number. Electronically signed by: Duke Douglas MD 11/20/2024 08:18 AM EDT RP
--- NOTE | ~2024-11-14 | CT_ITS ---
CLINICAL HISTORY: vomiting, worsening renal failure CT abdomen and pelvis without contrast Comparison: CT/SR - ABD PELVIS WO CONT [id number] - 06/10/15 09:00 EDT Findings: No consolidation or effusion. Heart size at the upper limits. No pericardial effusion. There are likely 5 calcified renal arterial aneurysms, of which the largest measures 2 cm on image 266:4. Nonobstructing right inferior 6 mm renal stone. Radical left nephrectomy. There may be 2 small calcified splenic artery cyst distally measuring no larger than 9 mm, image 233: 4. Gallbladder and solid organs otherwise unremarkable. No bowel obstruction, pneumoperitoneum, or pneumatosis. There is a patulous anterior abdominal wall versus very wide mouth bilateral spigelian hernias. Moderate stool. Uterus and ovaries unremarkable. Normal appendix. No ascites. The bones are intact. IMPRESSION: 1. Nonobstructing right renal stone. 2. 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 Similar to prior. 3. Additional findings as above. This document has been electronically signed by: Ramon Rocha MD on 11/15/2024 04:09:37
--- NOTE | ~2024-11-14 | NM_ITS ---
CLINICAL HISTORY: elevated ddimer NM Lung Perfusion Comparison: None Findings: 4.0 mCi technetium 99m MAA used. No definite perfusion defects. IMPRESSION: Low probability for pulmonary embolism This document has been electronically signed by: Salo Pulido MD on 11/15/2024 11:22:58
--- NOTE | ~2024-11-14 | IR_ITS ---
PROCEDURE: IR INSERTION OF TUNNEL CATHETER CLINICAL INFORMATION: Chronic kidney disease for dialysis. COMPARISON: None available. TECHNIQUE: Following explaining ultrasound and fluoroscopy-guided left permacath insertion procedure, benefits in risk, a written consent was obtained. All elements of maximal sterile barrier technique followed including use of cap, mask, sterile gown, sterile gloves, a sterile full body drape and hand hygiene. Also followed skin preparation with 2% chlorhexidine for cutaneous antisepsis, and sterile ultrasound preparation with sterile gel and probe cover when applicable. Preliminary ultrasound imaging was obtained through the left neck and optimal site was marked on the neck. 1% lidocaine was inserted from to set up to sterile drape as described above. A singlewall needle was then advanced from the marked site in the left neck under sterile ultrasound guidance and distal left jugular vein was punctured. After obtaining venous return and thin guidewire was advanced and placed in the left jugular vein and needle withdrawn. The guidewire was anchored to the drape with hemostat. Approximately 1 because length away from the left neck incision along the left anterior chest wall one percent lidocaine was inserted. Through a small skin incision a tunneler attached to the permacath was bluntly dissected from the lateral anterior chest wall to the left neck incision. The tunneler and the catheter pulled through the left neck incision. The small guidewire in the left neck was then exchanged over 5 Montserratian dilator to a 0.3-2 J-wire. The J-wire was advanced under fluoroscopy and placed in IVC. The 5 Montserratian dilator was then exchanged for a 6.6 Montserratian dilator with sheath. The guidewire and the dilator was removed and pre cut permacatheter was inserted over the peel-away sheath. The peel-away sheath was removed as the catheter was held in position. Abdominal sutures were then placed around the neck and the anterior chest wall. Both ports of permacath was flushed with heparinized saline. Simple dressing was applied at the puncture sites. Patient targeted procedure extremely well. Conscious sedation was administered during the exam and patient monitored by the higher nurse and physician. Single image was obtained over the chest. FINDINGS: On preliminary ultrasound imaging there is widely patent left jugular vein. Approximately 27 cm long tunneled dialysis catheter was placed through the left jugular vein. The catheter tip lies within the SVC. The catheter is ready for use. IR/IR cvc insert central tunnel IMPRESSION: Successful ultrasound and fluoroscopy-guided placement of left tunneled permacatheter for dialysis. Fluoroscopy time: 2.3 minutes. Dose: 31.1 mGy/cm. Electronically signed by: Duke Douglas MD 11/19/2024 02:42 PM EDT
--- NOTE | ~2024-11-14 | XR_ITS ---
CLINICAL HISTORY: sob, chest pain, n v, dizziness, weakness 1 view chest x-ray Comparison: CR/GA/SR - XR CHEST 1V - 11/09/23 00:59 EST Findings: Heart size at the upper limit of normal. Atherosclerotic vascular disease of aortic arch. No consolidation, significant pleural effusion or pneumothorax. No acute fracture. IMPRESSION: 1. No acute findings. This document has been electronically signed by: Bee Amezquita MD on 11/14/2024 22:47:54
[2024-11-14 21:52] VITALS: BP 156/83; BP 168/79; PULSE 83; PULSE 85; RESP 18; TEMP 36.4; O2SAT 97; BMI 28.3
--- NOTE | 2024-11-14 21:57 | ECG_ITS ---
Test Reason : CP Blood Pressure : */* mmHG Vent. Rate : 84 BPM Atrial Rate : 84 BPM P-R Int : 128 ms QRS Dur : 82 ms QT Int : 402 ms P-R-T Axes : 41 5 74 degrees QTcB Int : 475 ms Normal sinus rhythm Normal ECG When compared with ECG of 09-Sep-2024 08:10, No significant change was found Referred By: Generic ED Physician Electronically Signed By: HEAVEN ALVAREZ
[2024-11-14 22:22] LABS: Basophils Absolute Auto 0.1 X10*3/uL (0.0-0.2); Basophils Percent Auto 0.5 % (0-2); Eosinophils Absolute Auto 0.1 X10*3/uL (0.0-0.4); Eosinophils Percent Auto 1.2 % (0-4); Hematocrit 23.1 % (37.0-47.0); Hemoglobin 7.7 g/dl (12.0-16.0); Imm Gran Abs Auto 0.03 X10*3/uL (0.00-0.03); Imm Gran Pct Auto 0.3 % (0.0-0.4); Lymphocytes Absolute Auto 1.3 X10*3/uL (1.2-4.9); Lymphocytes Percent Auto 14.2 % (20-40); MANUAL DIFF FLAG NO; Mean Corpuscular HGB Conc 33.3 g/dl (31.0-35.0); Mean Corpuscular Hemoglobin 28.9 pg (27.0-33.0); Mean Corpuscular Volume 86.8 fL (80.0-98.0); Mean Platelet Volume 11.1 fL (9.4-12.3); Monocytes Absolute Auto 0.6 X10*3/uL (0.1-1.2); Monocytes Percent Auto 6.1 % (2-11); Neutrophils Absolute Auto 7.2 x10*3/uL (2.0-8.3); Neutrophils Percent Auto 77.7 % (45-73); Platelet Count 152 X10*3/uL (160-400); Red Blood Count 2.66 X10*6/uL (4.20-5.50); Red Cell Distribution Width 14.4 % (11.0-16.0); White Blood Count 9.3 X10*3/uL (4.8-10.8)
--- OUTSIDE RECORDS SUMMARY | 2024-11-14 22:22 | XMS_ITS | Referral Summary ---
Author Organization [facility] Address [address] [place] [address] Care Team Providers Care Director [facility] Name Role Phone Emanuel Scruggs Primary Care Provider [phone] Encounters Date Type Department Care Team Description 10/08/2024 Telephone [facility] Transplant Department [address] [place] [address] Kimber Fallon, RN 10/01/2024 Orders Only [facility] Transplant Department [address] [place] [address] Tito Patricio MD Renovascular hypertension (Primary Dx) 09/23/2024 Telephone [facility] Transplant Department [address] [place] [address] Kimebr Fallon, RN 09/19/2024 Telephone [facility] Transplant Department [address] [place] [address] Kimber Fallon, RN 09/01/2024 2:35 PM EST Lab [facility] [place] Draw Site [address] [place] [address] Pre-transplant evaluation for kidney transplant; Stage 4 chronic kidney disease (HCC) 09/01/2024 Orders Only [facility] Transplant Department [address] [place] [address] Kimber Fallon, RN Pre-transplant evaluation for kidney transplant (Primary Dx); Stage 4 chronic kidney disease (HCC) 09/01/2024 1:45 PM EST Social Work [facility] Renal Transplant [address] [place] [address] Thomas Freeman 09/01/2024 1:00 PM EST Office Visit [facility] Renal Transplant [address] [place] [address] Devante Juarez MD Heher, Eliot C, MD Pre-transplant evaluation for kidney transplant (Primary Dx); Chronic kidney disease, stage V (HCC) 09/01/2024 11:45 AM EST Evaluation [facility] Renal Transplant [address] [place] [address] Kimber Fallon RN Pre-transplant evaluation for kidney transplant (Primary Dx) 09/01/2024 11:15 AM EST Office Visit [facility] Renal Transplant [address] [place] [address] Karen Madrigal RN Pre-transplant evaluation for kidney transplant (Primary Dx) 08/28/2024 Telephone [facility] Transplant Department [address] [place] [address] Kimber Fallon, LEROY from Last 3 Months [...] 09/01/2024 10:57 AM EST Plan of Treatment Upcoming Encounters Date Type Department Care Team (Late st Contact Info) Description 08/19/2025 1:40 PM EST Follow-Up [facility] Renal Transplant [address] [place] [address] Tito Patricio MD [address] [place] [address] 08/19/2025 2:00 PM EST Social Work [facility] Renal Transplant [address] [place] [address] Tito Patriico MD [address] [place] [address] Thomas Freeman Procedures * Due to [place] state law, this organization might not be [...] kidney disease (HCC) QUANTIFERON-TB GOLD PLUS, 1 [id number] Routine 09/01/2024 2:46 PM EST Pre-transplant evaluation for kidney transplant Stage 4 chronic kidney disease (HCC) RPR (DIAGNOSIS) W/REFLEX TO TITER & TPPA [id number] Routine 09/01/2024 2:46 PM EST Pre-transplant evaluation for kidney transplant Stage 4 chronic kidney disease (HCC) VARICELLA ZOSTER ANTIBODY, IGG Routine 09/01/2024 2:46 PM EST Pre-transplant evaluation for kidney transplant Stage 4 chronic kidney disease (HCC) HLA TRANSPLANT WORK-UP (ALLELE LEVEL A/B/C/DRB1/ESF580/DQA1/ DQB1/DPA1/DPB1) Routine 09/01/2024 2:46 PM EST Pre-transplant [...] Last 3 Months Results * Due to [place] state law, this organization might not be sharing negative HIV tests. * HLA Transplan Work-Up(Allele Level A/B/C/DRB1/XSV278/DQA1/DQB1/DPA1/DPB1) (09/01/2024 2:46 PM EST) Histocompatibility Laboratory Information See Below 09/08/2024 4:42 PM EST [facility] [employer] [facility] Comment: SONYA: ??[id number] ?Director: ??Arabella Garcia MD. [facility] PFI: ??[id number] UNOS: ??[id number] This test [...] testing. B*-1 B*35:05 09/08/2024 4:42 PM EST [facility] [facility] [facility] B*-2 B*41:02 09/08/2024 4:42 PM EST [employer] [facility] B*-1 NMDP [...] LAB ORDERABLES Edited Resul t - Final [facility] [address] Rm: [id number] [place] [address], * MMR Panel, IgG (09/01/2024 2:46 PM EST) [facility] Measles Antibody (IgG), Immune Status 122.00 AU/mL 09/02/2024 4:42 AM EST FileThis Comment: AU/mL ?Interpretation ----- ? <13.50 ? Not consistent with immunity 13.50-16.49 ?Equivocal >16.49 ? Consistent with immunity The presence of measles IgG suggests immunization or past or current infection with measles virus. For additional information, please refer to http://[employer].goviral/faq/BHX770 (This link is being provided for informational/ educational purposes only.) Mumps Antibody (IgG), Immune Status 11.90 AU/mL 09/02/2024 4:42 AM EST FileThis Comment: AU/mL ? Interpretation ------- ? <9.00 ? Not consistent with immunity 9.00-10.99 ?Equivocal >10.99 ?Consistent with immunity The presence of mumps IgG antibody suggests immunization or past or current infection with mumps virus. Rubella Antibody (IgG), Immune Status 6.46 Index 09/02/2024 4:42 AM EST FileThis Comment: ?Index ?Interpretation ?----- ?<0.90 ?Not consistent [...] [address] [facility] 3rd Floor, [place] [address], [facility] 200 [facility] 3rd Floor, [place] [address], * (ABNORMAL) Herpes Simplex Virus 1&2, IgG (09/01/2024 2:46 PM EST) HSV 1 IgG Type Specific Ab 38.20(H) index 09/02/2024 5:38 PM EST [facility] HSV 2 IgG Type Specific Ab 14.50(H) index 09/02/2024 5:38 PM EST FileThis Comment: ?Index ?Interpretation ?----- ?<0.90 ?Negative ?0.90-1.09 [...] screening. For additional information, please refer to http://[employer].goviral/faq/KKP986 (This link is being provided for informational/ educational purposes only.) ?? Blood Structure of peripheral vein / Unknown Venipuncture / Unknown 09/01/2024 2:46 PM EST 09/01/2024 3:07 PM EST Narrative [facility] - 09/02/2024 5:38 PM EST [facility] Received Date: us Tito Patricio MD LAB BLOOD ORDERABLES Final Resu lt Performing Organization Address [facility] de Phone Number DEJAN [address], [place] [address], [place] [phone] [address], [place] [address], [place] [phone] * RPR (Diagnosis) w/Reflex to Titer & TPPA Confirm (09/01/2024 2:46 PM EST) RPR W/Refl Titer NON-REACT MIKE NON-REACT MIKE 09/04/2024 12:24 PM EST [facility] Blood Structure of peripheral vein / Unknown Venipuncture / Unknown 09/01/2024 2:46 PM EST 09/01/2024 3:07 PM EST Narrative [facility] - 09/04/2024 12:24 PM EST [facility] Received Date: us Tito Patricio MD LAB BLOOD ORDERABLES Final Resu lt Performing Organization Address [facility] Co de Phone Number [facility] [place] [address], [place] [address], [place] [phone] [facility] [address], [place] [address], [place] [phone] * QuantiFERON-TB Gold Plus, 1 Tube (09/01/2024 2:46 PM EST) [facility] QuantiFERON-TB Gold Plus NEGATIVE NEGATIVE 09/04/2024 4:11 PM EST [facility] Comment: Negative test result. M. tuberculosis complex infection unlikely. NIL 0.05 IU/mL 09/04/2024 4:11 PM EST [facility] Mitogen-NIL 7.77 IU/mL 09/04/2024 4:11 PM EST [facility] TB1-NIL 0.05 IU/mL 09/04/2024 4:11 PM EST [facility] TB2-NIL 0.05 IU/mL 09/04/2024 4:11 PM EST [facility] Comment: The Nil tube value reflects [...] T-lymphocytes. For additional information, please refer to https://education.Career Element.EdCourage/faq/SPM859 (This link is being provided for informational/ educational purposes only.) Blood Structure of peripheral vein / Unknown Venipuncture / Unknown 09/01/2024 2:46 PM EST 09/01/2024 3:06 PM EST Narrative [facility] - 09/04/2024 4:11 PM EST [facility] Received Date: us Tito Patricio MD LAB BLOOD ORDERABLES Final Resu lt DEJAN GALVE[facility] [address] [place] [address] [address]rd Floor, [place] [address], [place] [phone] [address], [place] [address], [place] [phone] * (ABNORMAL) CBC Auto Differential (09/01/2024 2:46 PM EST) Pathologist [facility] WBC 6.2 3.8 - 10.8 10*3/uL 09/01/2024 [...] - 0.50 10*3/uL 09/01/2024 3:19 PM EST [facility] Basophil # <0.03 0.00 - 0.20 10*3/uL 09/01/2024 3:19 PM EST [facility] [employer] [facility] [facility] nRBC % 0.0 /100 WBCs 09/01/2024 3:19 PM EST [facility] [facility] nRBC # <0.01 <0.01 10*3/uL 09/01/2024 3:19 PM EST [facility] Blood Structure of peripheral vein / Unknown Venipuncture / Unknown 09/01/2024 2:46 PM EST 09/01/2024 3:10 PM EST Tito Patricio MD LAB BLOOD ORDERABLES Final Resu lt [facility] [employer] [facility] [address] [place] [address], * (ABNORMAL) Erick-Pierre Virus VCA Antibody Panel (09/01/2024 2:46 PM EST) EBV Viral Capsid Ag Ab (IGM) <36.00 U/mL 09/02/2024 11:27 AM EST FileThis Comment: ?U/mL ?Interpretation ?---- ?<36.00 ?Negative ?36.00-43.99 ? Equivocal ?>43.99 ?Positive EBV Viral Capsid Ag Ab (IGG) >750.00(H) U/mL 09/02/2024 11:27 AM EST FileThis Comment: ? U/mL ? Interpretation ? ---- ? <18.00 ? Negative ? 18.00-21.99 ?Equivocal ? >21.99 ? Positive EBV Nuclear Ag Ab <18.00 U/mL 024 11:27 AM EST FileThis Comment: ? U/mL ? Interpretation ? ---- ? <18.00 ? Negative ? 18.00-21.99 ?Equivocal ? >21.99 ? Positive Interpretation: See Comments 09/02/2024 11:27 AM EST FileThis Comment: Results indicate infection with EBV, but the time since primary infection cannot be determined due to the absence of both VCA IgM and EBNA IgG. Suggest repeat testing in 2-3 weeks if clinically indicated. Blood Structure of peripheral vein / Unknown Venipuncture / Unknown 09/01/2024 2:46 PM EST 09/01/2024 3:10 PM EST Narrative [employer] - 09/02/2024 11:27 AM EST [facility] Received Date:[id number] Tito Patricio MD LAB BLOOD ORDERABLES Final Resu lt [facility] [address] [facility] 3rd Floor, [place] [address], [facility] [address] [facility] 3rd Floor, [place] [address], * Hepatitis C Antibody w/Reflex to PCR (09/01/2024 2:46 PM EST) Hepatitis C Antibody NON-REACT MIKE NON-REACT MIKE 09/02/2024 7:23 AM EST FileThis Comment: HCV antibody was non-reactive. There is no laboratory evidence of HCV infection. In most cases, no further action is required. However, if recent HCV exposure is suspected, a test for HCV RNA (test code 57237) is suggested. For additional information please refer to http://education.EnduraCare AcuteCare/faq/ZGL66z5 (This link is being provided for informational/ educational purposes only.) Blood Structure of peripheral vein / Unknown Venipuncture / Unknown 09/01/2024 2:46 PM EST 09/01/2024 3:07 PM EST Narrative [facility] [facility] - 09/02/2024 7:23 AM EST [facility] Received Date:[id number] us Tito Patricio MD LAB BLOOD ORDERABLES Final Resu lt [facility]AL[facility] [address], [address] [place] [address], [place] [phone] [facility] [address], [place] [address], [place] [phone] * (ABNORMAL) Hepatitis A Antibody, Total (09/01/2024 2:46 PM EST) Hepatitis A Ab, Total REACTIVE( A) NON-REACT MIKE 09/02/2024 7:18 AM EST [facility] Comment: For additional information, please refer to http://[employer].EnduraCare AcuteCare/faq/FKY768 (This link is being provided for informational/ educational purposes only.) Blood Structure of peripheral vein / Unknown Venipuncture / Unknown 09/01/2024 2:46 PM EST 09/01/2024 3:10 PM EST Narrative [facility] - 09/02/2024 7:18 AM EST [facility] Received Date:[id number] us Tito Patricio MD LAB BLOOD ORDERABLES Final Resu lt DEJAN GALVEZ [address], [place] [address], [place] [phone] [facility] [address], [place] [address], [place] [phone] * Hepatitis B Core Antibody, Total (09/01/2024 2:46 PM EST) Hepatitis B Core Ab Total NON-REACT MIKE NON-REACT MIKE 09/02/2024 5:13 PM EST [facility] Comment: For additional information, please refer to http://[employer].EnduraCare AcuteCare/faq/YKV092 (This link is being provided for informational/ educational purposes only.) Blood Structure of peripheral vein / Unknown Venipuncture / Unknown 09/01/2024 2:46 PM EST 09/01/2024 3:07 PM EST Narrative [facility] 09/02/2024 5:13 PM EST [facility] Received Date: us Tito Patricio MD LAB BLOOD ORDERABLES Final Resu lt [facility] [address] [facility] 3rd [address], [place] [address], [place] [phone] [facility] [address] [facility] 3rd Floor, [place] [address], [place] [phone] * ABO/Rh Blood Type (09/01/2024 2:46 PM [...] Final Result [facility] [address] [place] [address], * Hepatitis B Surface Antibody (09/01/2024 2:46 PM EST) Hepatitis B Surface Ab Immunity, Qn 96 > OR = 10 mIU/mL 09/02/2024 6:38 AM EST [facility] Comment: PATIENT HAS IMMUNITY TO HEPATITIS B VIRUS. For additional information, please refer to http://education.EnduraCare AcuteCare/faq/RUR131 (This link is being provided for informational/ educational purposes only). Blood Structure of peripheral vein / Unknown Venipuncture / Unknown 09/01/2024 2:46 PM EST 09/01/2024 3:10 PM EST Narrative [facility] - 09/02/2024 6:38 AM EST [facility] Received Date:[id number] us Tito Patricio MD LAB BLOOD ORDERABLES Final Resu lt Performing Organization Address [facility]/ZIP Co de Phone Number DEJAN GALVEZ [address], [place] [address], [facility] [address], [place] [address], * Hepatitis B Surface Antigen w/Confirmation (09/01/2024 2:46 PM EST) Hepatitis B Surface Antigen NON-REACT MIKE NON-REACT MIKE 09/02/2024 6:01 AM EST [facility] Comment: For additional information, please refer to http://education.EnduraCare AcuteCare/faq/JEW695 (This link is being provided for informational/ educational purposes only.) Blood Structure of peripheral vein / Unknown Venipuncture / Unknown 09/01/2024 2:46 PM EST 09/01/2024 3:07 PM EST Narrative [facility] - 09/02/2024 6:01 AM EST [facility] Received Date:[id number] us Tito Patricio MD LAB BLOOD ORDERABLES Final Resu lt Performing Organization Address [facility]/ZIP Co de Phone Number DEJAN GALVEZ [address], [place] [address], [facility] [address], [place] [address], * (ABNORMAL) Cytomegalovirus Antibody, IgG (09/01/2024 2:46 PM EST) Cytomegalovirus Antibody (IgG) >10.00(H ) U/mL 09/02/2024 4:42 AM EST FileThis Comment: ? U/mL ? Interpretation ? ----- ? <0.60 ? Negative ? 0.60-0.69 ? Equivocal ? > or = 0.70 ?? Positive A positive result indicates that the patient has antibody to CMV. It does not differentiate between an active or past infection. Blood Structure of peripheral vein / Unknown Venipuncture / Unknown 09/01/2024 2:46 PM EST 09/01/2024 3:07 PM EST Narrative [facility] 09/02/2024 4:42 AM EST [facility] Received Date: Tito Patricio MD LAB BLOOD ORDERABLES Final Resu lt [address], [place] [address], [facility] [address], [place] [address], * PTT (09/01/2024 2:46 PM EST) aPTT 26.8 23.0 - 32.0 Seconds 09/01/2024 3:[address] [facility] [employer] [facility] Comment: Current PTT reagent is not sensitive to detect all Lupus Anticoagulant (LA) Inhibitor Cases. ?? If a LA is suspected, please order a Lupus Anticoagulation w/ Reflex Test which is performed at [facility] in [place], [place]. Blood Structure of peripheral vein / Unknown Venipuncture / Unknown 09/01/2024 2:46 PM EST 09/01/2024 3:07 PM EST Tito Patricio MD LAB BLOOD ORDERABLES Final Resu lt Performing Organization Address [facility] de Phone Number [facility] [address] [place] [address], * Protime-INR (09/01/2024 2:46 PM EST) PT 10.0 9.6 - 12.4 Seconds 09/01/2024 3:27 PM EST [facility] INR 0.9 0.9 - 1.1 09/01/2024 3:27 PM EST [facility] Comment:The optimal therapeu tic INR range for patients treated with Vitamin K antagonists (VKAS, e.g., Warfarin) is 2.0 to 3.5. Discuss the desired range with your doctor/care team. Blood Structure of peripheral vein / Unknown Venipuncture / Unknown 09/01/2024 2:46 PM EST 09/01/2024 3:07 PM EST Tito Patricio MD LAB BLOOD ORDERABLES Final Resu Performing Organization Address [facility] de Phone Number [facility] [address] [place] [address], * Varicella Zoster Antibody, IgG (09/01/2024 2:46 PM EST) Varicella Zoster Virus Antibody 26.10 S/CO 09/02/2024 5:29 PM EST FileThis Comment: ?Signal to Cut-off ? S/CO ?Interpretation [...] 09/01/2024 3:07 PM EST Narrative [facility] - 09/02/2024 5:29 PM EST [facility] Received Date: us Tito Patricio MD LAB BLOOD ORDERABLES Final Resu lt [facility] [address] [facility] [address] [facility], [place] [address], [facility] [address], [place] [address], [place] [phone] * (ABNORMAL) BUN (09/01/2024 2:46 PM EST) BUN 87(H) 7 - 23 mg/dL 09/01/2024 3:52 PM EST [facility] Blood Structure of peripheral vein / Unknown Venipuncture / Unknown 09/01/2024 2:46 PM EST 09/01/2024 3:10 PM EST us Tito Patricio MD LAB BLOOD ORDERABLES Final Resu lt Performing Organization Address [facility]/ZIP Co de Phone Number [facility] [address] [place] [address], * ALT (09/01/2024 2:46 PM EST) ALT 10 10 - 40 U/L 09/01/2024 3:52 PM EST [facility] Blood Structure of peripheral vein / Unknown Venipuncture / Unknown 09/01/2024 2:46 PM EST 09/01/2024 3:10 PM EST us Tito Patricio MD LAB BLOOD ORDERABLES Final Resu lt Performing Organization Address [facility] Co de Phone Number [facility] [address] [place] [address], * AST (09/01/2024 2:46 PM EST) AST 12 10 - 40 U/L 09/01/2024 3:52 PM EST [facility] Blood Structure of peripheral vein / Unknown Venipuncture / Unknown 09/01/2024 2:46 PM EST 09/01/2024 3:10 PM EST us Tito Patricio MD LAB BLOOD ORDERABLES Final Resu lt Performing Organization Address [facility] Co de Phone Number [facility] [address] [place] [address], * (ABNORMAL) Phosphorus (09/01/2024 2:46 PM EST) Phosphorus 8.2(H) 2.5 - 4.5 mg/dL 09/01/2024 3:52 PM EST [facility] Blood Structure of peripheral vein / Unknown Venipuncture / Unknown 09/01/2024 2:46 PM EST 09/01/2024 3:10 PM EST us Tito Patricio MD LAB BLOOD ORDERABLES Final Resu lt [facility] [employer] [facility] [address] [place] [address], [place] * (ABNORMAL) PTH, Intact (without Calcium) (09/01/2024 2:46 PM EST) Parathyroid Hormone, Intact 1488(H) 16 - 77 pg/mL 09/03/2024 7:22 AM EST FileThis Comment: Interpretive Guide ?Intact PTH ? Calcium [...] EST 09/01/2024 3:10 PM EST Narrative [facility] 09/03/2024 7:22 AM EST [facility] Received Date: Tito Patricio MD LAB BLOOD ORDERABLES Final Resu lt [facility] [address] [facility] 3rd [address], [place] [address], [facility] 200 [facility] 3rd Floor, [place] [address], [place] [phone] * (ABNORMAL) Creatinine (09/01/2024 2:46 PM EST) Creatinine 6.72(H) 0.50 - 1.20 mg/dL 09/01/2024 3:52 PM EST [facility]ERS[facility] Network[facility] GridBL[facility] ATG Access [facility] LAB[facility] eGFR 7(L) >=60 mL/min/1 .73m2 09/01/2024 3:52 PM EST [facility] Access [facility] LABOR[facility] Comment:The estimated glomer ular [...] MD LAB BLOOD ORDERABLES Final Resu lt [facility] [employer] [facility] [address] [place] [address], * (ABNORMAL) Calcium (09/01/2024 2:46 PM EST) Calcium 8.1(L) 8.6 - 10.5 mg/dL 09/01/2024 3:[address] [facility] [employer] [facility] Blood Structure of peripheral vein / Unknown Venipuncture / Unknown 09/01/2024 2:46 PM EST 09/01/2024 3:10 PM EST us Tito Patricio MD LAB BLOOD ORDERABLES Final Resu lt Performing Organization Address [facility] Co de Phone Number [facility] [address] [place] [address], [place] * Bilirubin, Direct (09/01/2024 2:46 PM EST) Bilirubin, Direct <0.1 <=0.4 mg/dL 09/01/2024 3:54 PM EST [facility] Blood Structure of peripheral vein / Unknown Venipuncture / Unknown 09/01/2024 2:46 PM EST 09/01/2024 3:10 PM EST us Tito Patricio MD LAB BLOOD ORDERABLES Final Resu lt Performing Organization Address [facility] de Phone Number [facility] [address] [place] [address], [place] * (ABNORMAL) Bilirubin, Total (09/01/2024 2:46 PM EST) Bilirubin, Total <0.2(L) 0.2 - 1.2 mg/dL 09/01/2024 3:54 PM EST [facility] Blood Structure of peripheral vein / Unknown Venipuncture / Unknown 09/01/2024 2:46 PM EST 09/01/2024 3:10 PM EST us Tito Patricio MD LAB BLOOD ORDERABLES Final Resu lt Performing Organization Address [facility] Co de Phone Number [facility] [address] [place] [address], [place] * Albumin (09/01/2024 2:46 PM EST) Albumin 4.0 3.5 - 5.2 g/dL 09/01/2024 3:52 PM EST [facility] Blood Structure of peripheral vein / Unknown Venipuncture / Unknown 09/01/2024 2:46 PM EST 09/01/2024 3:10 PM EST us Tito Patricio MD LAB BLOOD ORDERABLES Final Resu lt [facility] [address] [place] [address], [place] from Last 3 Months Insurance Care Teams Director [facility] Relationship Specialty Start Date End Date Emanuel Scruggs [address] [place] [address] PCP - General 03/22/17
--- OUTSIDE RECORDS SUMMARY | 2024-11-14 22:22 | XMS_ITS | Clinical Summary ---
Author Organization [facility] Facility Address [address] [place] [address] Care Team Providers Care Icer Machine Operator Name Role Phone Mary Garcia LISA Primary Care Provider [phone] Allergies Active Allergy Reactions Criticality Noted Date [...] in the evening. Active ergocalciferol 1.25 MG (99746 UT) capsule Take 1 capsule by mouth [...] (#1) 2024 Insurance [employer] [place] [employer] [id number] [facility] [employer] [place] [place] [phone] Care Teams Icer Machine Operator Relationship Specialty Start Date End Date Mary Garcia FNP [address] [place] [address] PCP - General 06/19/22
--- OUTSIDE RECORDS SUMMARY | 2024-11-14 22:22 | XMS_ITS ---
Author Organization [facility] Address [address] [place] [address] Care Team Providers Care Nurse Practitioner Adult Name Role Phone Emanuel Scruggs Primary Care Provider [phone] Transplant Episode Kidney Candidate [facility] ([place], [place]) - [facility] Evaluation began on 09/01/2024 Marked as Active on 09/01/2024 Kidney CoordinatorKimber Fallon RN Fax: N/A Email: N/A Scores Score Value Updated Exceptions/Reas ons CPRA Not available EPTS (Calc) 27 11/14/2024 [place] Organ Diagnosis Organ Primary Contributory Kidney Hypertensive Nephrosclerosis Care Team Name Role Phone Fax Email Kimber Fallon RN Kidney Coordinator [phone] N/A N/A Danis Betancur Referring Physician [phone] N/A Events Pre-Transplant Referred: 07/07/2024 Evaluation began: 09/01/2024
[2024-11-14 22:28] LABS: Prothrombin Time 11.3 SEC (10.9-12.4)
[2024-11-14 22:30] LABS: D Dimer High Sensitivity 871 NG/ML; IDNOW Serial# 58CA691E; Strep A Nucleic Acid Negative (Negative)
[2024-11-14 22:41] LABS: Troponin-I High Sensitivity 15.3 ng/L (<3.5-17.0)
[2024-11-14 22:59] LABS: Influenza A PCR NEGATIVE (Negative); Influenza B PCR NEGATIVE (Negative); Resp Syncy Virus RNA Qual PCR NEGATIVE (Negative); SARS COV2 PCR INHOUSE NEGATIVE (Negative)
[2024-11-14 23:49] LABS: Anion Gap 22 (12-20); Calcium 7.7 mg/dL (8.4-10.2); Carbon Dioxide 9 mmol/L (22-29); Chloride 116 mmol/L (96-108); Creatinine Clr Calc Pharmacy 8.2; Estimated Glomerular Filt Rate 6; Glucose Random 96 mg/dL (60-115); Potassium 4.8 mmol/L (3.3-5.1); Sodium 142 mmol/L (135-145)
--- NOTE | 2024-11-14 23:49 | ED.GENADULT ---
HPI - General Adult General Chief complaint: General Medical Stated complaint: dizzy, weak, chest pain Time Seen by Provider: 11/14/24 23:49 History of Present Illness ED Provider: Aline CAMPOS narrative: The patient is a 59-year-old woman with a history of chronic kidney disease who sees Dr. Betancur of Nephrology and who was scheduled to have a dialysis shunt placed in her left arm in 2 months. She says that she has been feeling fine during the day today but this evening received a letter that indicated that her apartment was going to need to be fumigated. She was very upset about this and felt a bad taste in her mouth and a discomfort in her throat. She then vomited several times and also had some chest pain. an ambulance was called and she was brought to the hospital. Not feel short of breath. She has some discomfort in her throat when she swallows. She says she had a bowel movement this morning which was yellow in appearance. She denies having had any black stools recently. She has been feeling fine earlier in the day and over the weekend. The patient says that in 2012 she received dialysis for approximately 4 months. She has not had any dialysis since then. Dr. Betancur has been following her renal function and has recommended possibly starting dialysis later this year. Therefore the appointment for a dialysis shunt has been made. The patient says that she makes urine. Related Data Home Medications ?Medication ?Instructions ?Recorded ?Confirmed sevelamer HCl 800 mg tablet 800 mg PO TIDWM 09/14/24 11/04/24 Previous Rx's ?Medication ?Instructions ?Recorded blood pressure monitor #1 ea 11/10/23 sitz bath #1 11/13/23 Grab bar #1 11/22/23 Shower Chair #1 11/22/23 bed rail #1 11/22/23 hand held shower #1 11/22/23 pill box twice daily #1 ea 11/22/23 ferrous sulfate 325 mg (65 mg 325 mg PO BID #180 tabs 07/04/24 iron) tablet,delayed release amlodipine 10 mg tablet (Norvasc) 10 mg PO DAILY 90 days #90 tabs 09/11/24 atorvastatin 80 mg tablet 80 mg PO BEDTIME 90 days #90 tabs 09/11/24 metoprolol tartrate 50 mg tablet 50 mg PO BID 90 days #180 tabs 09/11/24 sitz bath #1 ea 09/11/24 sodium bicarbonate 650 mg tablet 1,300 mg (2 x 650 mg) PO TID #540 09/30/24 tabs simethicone 180 mg capsule (Gas 180 mg PO BID PRN abdominal 11/04/24 Relief (simethicone)) distention 30 days #60 caps Allergies Allergy/AdvReac Type Severity Reaction Status Date / Time Penicillins Allergy Intermediate RASH Verified 11/14/24 21:56 Review of Systems Review of Systems: Yes all other systems are reviewed and are negative [facility] Past Medical History Medical History Acute on chronic kidney failure Secondary hyperparathyroidism (of renal origin) CKD (chronic kidney disease) stage 5, GFR less than 15 ml/min Essential hypertension History of colon polyps Anemia in chronic kidney disease (CKD) Anemia CKD (chronic kidney disease) Chronic systolic (congestive) heart failure Cardiomyopathy Normocytic anemia Surgical History Hx of colonoscopy History of surgery Status post dilation and curettage History of abdominal surgery History of extraction of renal calculus History of tubal ligation Family History Family History Father Throat cancer Mother Hypertension Daughter In good health Daughter In good health Sister In good health Family/Other Breast cancer Social History Social History Household Members: None Housing: Apartment Are you a primary out of school hours care worker to a significant other at home: No Do you presently have visiting nurse or other home services: No Alcohol intake: never Comment: recent syncopal episode with blood loss Patient Tobacco Use Status: Former Tobacco user Tobacco use type: Cigarette Years Smoked: 30 +/- Smoked in Last 30 Days: No e-Cigarette/Vaping Use: Never Used Second Hand Smoke Exposure: No Use of substances other than those prescribed or required for medical reasons: No Advance Directives: Yes Advance Directives on File: Yes Advance Directives Date on File: 11/21/23 Patient : No service: No Current occupational status: unemployed Cognitive needs: No Hearing needs: No Vision needs: No Physical Exam ED Vital Signs: Vital Signs - 24 hr 11/14/24 21:52 11/14/24 23:57 Temperature 97.5 F 98.2 F Pulse Rate 83 88 Respiratory Rate 18 21 H Blood Pressure 168/79 H 162/87 H Pulse Oximetry 97 100 Oxygen Delivery Method Room Air Room Air BMI result Body Mass Index 28.3 Const Other: The patient is a somewhat chronically ill-appearing 59-year-old. She was awake and alert. She did not appear in obvious distress or seem obviously acutely ill. HENMT Other: Face is symmetrical. Mucous membranes are not obviously dry. The posterior pharynx is unremarkable. Eyes General: appearance normal, both eyes and all related structures Conjunctivae: conjunctivae normal Sclerae: sclerae normal Neck Neck: Yes full ROM Resp Effort & Inspection: normal respiratory effort Auscultation: clear to auscultation bilaterally Cardio Rate: regular rate Rhythm: regular rhythm Heart sounds: S1 normal heart sound present and S2 normal heart sound present GI Other: Abdomen is soft and nontender. rectal exam revealed external hemorrhoids present. There did not seem to be any definite stool in the rectal vault. There was a small amount of bright red blood on my glove but no definite stool. My impression was that the blood was hemorrhoidal. Skin Other: Skin is pale and dry Neuro Other: the patient is awake and alert with a normal mental status. Cranial nerves 2-12 are grossly intact. She moves her extremities normally. she has a normal gait. Extrem General: Yes no pedal edema and Yes no calf tenderness Medications Administered Discontinued Medications Generic Name Dose Route Start Last Admin Trade Name Freq PRN Reason Stop Dose Admin Al Hydroxide/Mg Hydroxide 30 ml 11/15/24 01:38 11/15/24 01:48 Magnesium Hydrox/Alum Hydrox 30 Ml Oral.Susp PO 11/15/24 01:39 30 ml ONCE ONE Administration Lactated Ringer's 1,000 mls @ 999 mls/hr 11/14/24 23:45 11/15/24 01:39 Lr IV 11/15/24 00:45 Infused .Q1H1M ADELA Infusion Ondansetron HCl 4 mg 11/14/24 23:57 11/15/24 00:11 Ondansetron Hcl 4 Mg/2 Ml Vial IVPUSH 11/14/24 23:58 4 mg ONCE ONE Administration Medical Decision Making Medical Decision Making [facility] Narrative: The patient is a very pleasant 59-year-old woman who has a history of significant chronic renal disease. In fact she is scheduled to have a dialysis catheter placed in her left arm in 6 weeks. The patient developed acute vomiting tonight. She was at home. She had eaten dinner. It seems her problems began after she became very upset after receiving a noticed that her apartment was going to be fumigated. She then became upset, felt a bad taste in her mouth and became nauseated and vomited several times. She then developed chest pain as well. An ambulance was called and she was brought to the hospital. Here she was awake and alert with a normal mental status and did not look obviously acutely ill. However her basic metabolic panel showed a serum bicarb of 9. Her creatinine is 7 which seems to be about her recent baseline. Her BUN is 136, which is higher than previous. Her hemoglobin is 7.7, which is somewhat of a drop. Given the rise in her BUN and the drop in her hemoglobin I was concerned about the possibility of a GI bleed. She was given a dose of pantoprazole. She says that she has not had any black stools and claims that she had a yellow stool earlier today. On digital rectal exam there was no stool in the rectal vault. There was a small amount of bright red blood on my glove which i thought came from her hemorrhoids. given her serum bicarb of 9 I think the patient will need hospitalization. She was given IV fluids. She was given pantoprazole. She was given a dose of Maalox for her throat pain. This helped. She will be admitted to the hospitalist service. The hospitalist has requested a CT of the abdomen and pelvis which will be done without contrast. Also repeat labs to monitor her metabolic status. Lab Data 11/14/24 22:15 11/14/24 22:15 Labs: Lab Results 11/14/24 11/15/24 11/15/24 Range/Units 22:15 00:40 01:11 WBC 9.3 (4.8-10.8) X10*3/uL RBC 2.66 L (4.20-5.50) X10*6/uL Hgb 7.7 L (12.0-16.0) g/dl Hct 23.1 L (37.0-47.0) % MCV 86.8 (80.0-98.0) fL MCH 28.9 (27.0-33.0) pg MCHC 33.3 (31.0-35.0) g/dl RDW 14.4 (11.0-16.0) % Plt Count 152 L (160-400) X10*3/uL MPV 11.1 (9.4-12.3) fL Immature Gran % (Auto) 0.3 (0.0-0.4) % Neut % (Auto) 77.7 H (45-73) % Lymph % (Auto) 14.2 L (20-40) % [place] % (Auto) 6.1 (2-11) % Eos % (Auto) 1.2 (0-4) % Baso % (Auto) 0.5 (0-2) % Lymph # (Auto) 1.3 (1.2-4.9) X10*3/uL [place] # (Auto) 0.6 (0.1-1.2) X10*3/uL Eos # (Auto) 0.1 (0.0-0.4) X10*3/uL Baso # (Auto) 0.1 (0.0-0.2) X10*3/uL Abs Immat Gran (auto) 0.03 (0.00-0.03) X10*3/uL Absolute Neuts (auto) 7.2 (2.0-8.3) x10*3/uL Absolute Nucleated RBC 0.000 (0.0-0.012) X10*3/uL Nucleated RBC % (auto) 0.0 (0.0-0.2) /100WBC PT 11.3 (10.9-12.4) SEC INR 1.0 (0.9-1.1) D-Dimer High Sensitivty 871 NG/ML VBG pH 7.28 L (7.32-7.43) VBG pCO2 20 mmHg VBG pO2 60 mmHg VBG HCO3 10 L (22-26) mmol/L VBG O2 Saturation 89.0 % VBG Base Excess -14.7 mmol/L Sodium 142 (135-145) mmol/L Potassium 4.8 (3.3-5.1) mmol/L Chloride 116 H (96-108) mmol/L Carbon Dioxide 9 L* D (22-29) mmol/L Anion Gap 22 H (12-20) BUN 136 H (9-16) mg/dL Creatinine 7.50 H* (0.5-1.4) mg/dL Estim Creat Clear Calc 8.2 Estimated GFR 6 Random Glucose 96 (60-115) mg/dL Calcium 7.7 L (8.4-10.2) mg/dL Total Bilirubin 0.2 (0.0-1.0) mg/dL Direct Bilirubin < 0.2 (0.0-0.5) mg/dL AST 13 (5-31) U/L ALT 8 (0-31) U/L Alkaline Phosphatase 67 (39-117) U/L Troponin I High Sens 15.3 D 15.6 (<3.5-17.0) ng/L Total Protein 7.3 (6.5-8.0) g/dL Albumin 3.6 (3.5-5.0) g/dL Lipase 50 (8-78) U/L Influenza Type A (PCR) NEGATIVE (Negative) Influenza Type B (PCR) NEGATIVE (Negative) RSV RNA Qual (PCR) NEGATIVE (Negative) SARS-CoV-2 RNA (RT-PCR) NEGATIVE (Negative) S. pyogenes GrpA AL Negative (Negative) Independent Interpretation I performed an independent interpretation of an: EKG Interpretation: EKG at 10/23/2003 shows normal sinus rhythm at 84 beats per minute. It is a normal EKG. Discharge Plan Discharge Clinical Impression: Acute vomiting, Metabolic acidosis, Acute on chronic renal insufficiency, Anemia Patient Disposition: Admitted As Inpatient
[2024-11-14 23:57] VITALS: BP 162/87; PULSE 88; RESP 21; TEMP 36.8; O2SAT 100
[2024-11-15] VITALS (8 sets, daily range): BP systolic 105–159; BP diastolic 60–90; PULSE 69–78; RESP 12–18; TEMP 35.9–36.8; O2SAT 95–100; BMI 28.4
[2024-11-15 00:01] LABS: Blood Urea Nitrogen 136 mg/dL (9-16)
[2024-11-15] MEDS: ondansetron HCL 4 MG/2 ML VIAL IVPUSH (00:11)
[2024-11-15] MEDS: Lactated Ringers 1,000 ML 999 ML IV (00:11)
[2024-11-15 00:25] LABS: Alanine Aminotransferase 8 U/L (0-31); Albumin Level 3.6 g/dL (3.5-5.0); Alkaline Phosphatase 67 U/L (39-117); Aspartate Amino Transferase 13 U/L (5-31); Bilirubin Direct < 0.2 mg/dL (0.0-0.5); Bilirubin Total 0.2 mg/dL (0.0-1.0); Lipase 50 U/L (8-78); Total Protein 7.3 g/dL (6.5-8.0)
[2024-11-15 01:14] LABS: Venous Blood Gas Refer to POC result
[2024-11-15 01:15] LABS: VBG Base Excess -14.7 mmol/L; VBG HCO3 10 mmol/L (22-26); VBG pCO2 20 mmHg; VBG pH 7.28 (7.32-7.43); VBG pO2 60 mmHg
[2024-11-15 01:21] LABS: Troponin-I High Sensitivity 15.6 ng/L (<3.5-17.0)
[2024-11-15] MEDS: Magnesium Hydrox/Alum Hydrox 30 ML ORAL.SUSP PO (01:48)
--- NOTE | 2024-11-15 02:42 | PM.IMHP ---
History of Present Illness Date of Service: 11/15/24 Chief Complaint: Nausea/vomiting 59-year-old female with a past medical history of HTN, HLD, CKD stage 5, dysphagia, CAD, secondary hyperparathyroidism, anemia of chronic disease presented to the hospital today with a chief complaint of nausea and vomiting. Patient reported that her home was fumigated; generally she fell upset in the stomach, had multiple episodes of nausea and vomiting. Denies any blood in the vomitus. Denies any abdominal pain. Patient reported having chest pain after vomiting episodes at home. Denies any chest pain at the time of my interview. Patient denies any fevers and chills. Denies any urinary symptoms. Reports she still makes urine. Review of all other systems is negative except mentioned above ER course: Per ER team, patient has benign abdominal examination; on labs note the elevated D-dimer, creatinine of 7.5 similar to prior values; BUN elevated; hemoglobin 7.7 close to her baseline. Serum bicarb was noted to be 9 compared to prior values of 18. PH of 7.28; [facility] Medical History Acute on chronic kidney failure Secondary hyperparathyroidism (of renal origin) CKD (chronic kidney disease) stage 5, GFR less than 15 ml/min Essential hypertension History of colon polyps Anemia in chronic kidney disease (CKD) Anemia CKD (chronic kidney disease) Chronic systolic (congestive) heart failure Cardiomyopathy Normocytic anemia Family History Father Throat cancer Mother Hypertension Daughter In good health Daughter In good health Sister In good health Family/Other Breast cancer Surgical History Hx of colonoscopy History of surgery Status post dilation and curettage History of abdominal surgery History of extraction of renal calculus History of tubal ligation Social History Household Members: None Housing: Apartment Are you a primary body care manager to a significant other at home: No Do you presently have visiting nurse or other home services: No Alcohol intake: never Comment: recent syncopal episode with blood loss Patient Tobacco Use Status: Former Tobacco user Tobacco use type: Cigarette Years Smoked: 30 +/- Smoked in Last 30 Days: No e-Cigarette/Vaping Use: Never Used Second Hand Smoke Exposure: No Use of substances other than those prescribed or required for medical reasons: No Advance Directives: Yes Advance Directives on File: Yes Advance Directives Date on File: 11/21/23 Patient : No service: No Current occupational status: unemployed Cognitive needs: No Hearing needs: No Vision needs: No Meds Allergies Allergy/AdvReac Type Severity Reaction Status Date / Time Penicillins Allergy Intermediate RASH Verified 11/14/24 21:56 Active Medications: Current Medications Acetaminophen (Acetaminophen 325 Mg Tablet) 650 mg PO Q6H PRN PRN Reason: Pain, Mild 1-3,fever,headache Benzonatate (Benzonatate 100 Mg Capsule) 100 mg PO TID PRN PRN Reason: Cough Calcium Carbonate (Calcium Carbonate 750 Mg Tab.Chew) 750 mg PO Q4H PRN PRN Reason: Heartburn Heparin Sodium (Porcine) (Heparin Sodium,Porcine 5,000 Unit/Ml Vial) 5,000 unit SUBCUT Q8H ADELA Dextrose/Sodium Chloride (D51/2ns) 1,000 mls @ 100 mls/hr IVCONT .Q10H ADELA Magnesium Hydroxide (Milk Of Magnesia 30 Ml Oral.Susp) 30 ml PO DAILY PRN PRN Reason: Constipation Melatonin (Melatonin 3 Mg Tablet) 6 mg PO BEDTIME PRN PRN Reason: Insomnia Sodium Chloride (0.9 % Sodium Chloride Flush 3 Ml Syringe) 3 ml IVFLUSH QSHIFT ADELA Home Medications ?Medication ?Instructions ?Recorded ?Confirmed ?Last Taken ?Type sevelamer HCl 800 mg tablet 800 mg PO TIDWM 09/14/24 11/04/24 09/13/24 History Physical Exam Vital Signs and Narrative: Vital Signs: Last Vital Signs Temp 98.2 F 11/14/24 23:57 Pulse 88 11/14/24 23:57 Resp 21 H 11/14/24 23:57 BP 162/87 H 11/14/24 23:57 Pulse Ox 100 11/14/24 23:57 O2 Del Method Room Air 11/14/24 23:57 BMI result Body Mass Index 28.3 Gen: Appears be in no acute distress HEENT: NCAT, Moist mucosa. Pulmonary: Vesicular breath sounds, fair air entry CVS: Normal S1-S2 Abdomen: BS+, Soft, Nontender Extremities: Warm well perfused Neuro: Alert and awake. Results Labs 11/14/24 22:15 11/14/24 22:15 Labs: Laboratory Results - last 24 hr 11/14/24 11/15/24 22:15 01:11 MCV 86.8 MCH 28.9 MCHC 33.3 RDW 14.4 Plt Count 152 L MPV 11.1 Immature Gran % (Auto) 0.3 Neut % (Auto) 77.7 H Lymph % (Auto) 14.2 L [place] % (Auto) 6.1 Eos % (Auto) 1.2 Baso % (Auto) 0.5 Lymph # (Auto) 1.3 [place] # (Auto) 0.6 Eos # (Auto) 0.1 Baso # (Auto) 0.1 Abs Immat Gran (auto) 0.03 Absolute Neuts (auto) 7.2 Absolute Nucleated RBC 0.000 Nucleated RBC % (auto) 0.0 PT 11.3 INR 1.0 D-Dimer High Sensitivty 871 VBG pH 7.28 L VBG pCO2 20 VBG pO2 60 VBG HCO3 10 L VBG O2 Saturation 89.0 VBG Base Excess -14.7 Anion Gap 22 H Estim Creat Clear Calc 8.2 Estimated GFR 6 Random Glucose 96 Calcium 7.7 L Total Bilirubin 0.2 Direct Bilirubin < 0.2 AST 13 ALT 8 Alkaline Phosphatase 67 Total Protein 7.3 Albumin 3.6 Lipase 50 Influenza Type A (PCR) NEGATIVE Influenza Type B (PCR) NEGATIVE RSV RNA Qual (PCR) NEGATIVE SARS-CoV-2 RNA (RT-PCR) NEGATIVE S. pyogenes GrpA AL Negative Assessment and Plan (1) Acute vomiting: Status: Acute Plan 59-year-old female with a past medical history of HTN, HLD, CKD stage 5, dysphagia, CAD, secondary hyperparathyroidism, anemia of chronic disease presented to the hospital today with a chief complaint of nausea and vomiting. Nausea/vomiting: Likely gastritis Benign abdominal examination Non-con CT abdomen pelvis pending NPO Supportive care Gentle IV fluids Metabolic acidosis: Patient has known history of metabolic acidosis in the setting of CKD stage 5. Was on sodium bicarb tablets at home. Prior serum bicarb values were around 15-18. Serum bicarb on presentation is 9. PH 7.28. Resume home serum bicarb tablets Nephrology follow-up CKD stage 5: Patient's creatinine on presentation was 7.7. Patient has similar mentioned in the past. Patient is due to schedule a fistula in coming 6 weeks. Patient still makes urine. Nephrology consult Hypertension: Continue home antihypertensives once med rec is finished. DVT prophylaxis: SubQ heparin Code status: Full code Quality Stroke Does the patient have a stroke diagnosis?: No VTE Prior VTE?: No VTE Risk Level:: Medical - moderate - high VTE Device Contraindication: Patient Refused VTE Drug Contraindication: N/A - Med Ordered
[2024-11-15 03:20] LABS: Appearance Urine Clear; Color Urine Yellow; Glucose Urine UA 100 mg/dL (Negative); Leukocyte Esterase Urine Negative (Negative); Nitrite Urine Negative (Negative); UMIC TRIGGER UACC YES; Urine Blood Small (1+) (Negative); Urine Ketones Negative (Negative); Urine Protein 100 (2+) mg/dL (Neg-Trace)
[2024-11-15 03:32] LABS: Bacteria Urine None Seen (None Seen); Hyaline Casts Urine 0-2 /LPF (0-2); RBC Urine 0-2 /HPF (0-2); Squamous Epithelial Cell Urine 0-2 /HPF (0-2); WBC Urine 0-5 /HPF (0-5)
[2024-11-15 03:43] LABS: Venous Blood Gas Refer to POC result
[2024-11-15] MEDS: Heparin Sodium,Porcine 5,000 UNIT/ML VIAL 5000 UNIT SUBCUT ×3 (03:43→20:43)
[2024-11-15] MEDS: Pantoprazole Sodium 40 MG/10 ML VIAL 80 MG IVPUSH (03:43)
[2024-11-15] MEDS: Dextrose 5 % and 0.45 % NaCl 1,000 ML 100 ML IVCONT ×2 (03:44→15:18)
[2024-11-15 03:53] LABS: VBG Base Excess -13.3 mmol/L; VBG HCO3 11 mmol/L (22-26); VBG pCO2 22 mmHg; VBG pO2 40 mmHg
[2024-11-15 03:58] LABS: Lactic Acid 0.7 mmol/L (0.5-2.0)
[2024-11-15 04:27] LABS: MANUAL DIFF FLAG NO
[2024-11-15 04:28] LABS: Basophils Percent Auto 0.4 % (0-2); Eosinophils Absolute Auto 0.1 X10*3/uL (0.0-0.4); Hematocrit 22.6 % (37.0-47.0); Hemoglobin 7.3 g/dl (12.0-16.0); Imm Gran Abs Auto 0.02 X10*3/uL (0.00-0.03); Imm Gran Pct Auto 0.3 % (0.0-0.4); Lymphocytes Absolute Auto 1.8 X10*3/uL (1.2-4.9); Lymphocytes Percent Auto 24.2 % (20-40); Mean Corpuscular HGB Conc 32.3 g/dl (31.0-35.0); Mean Corpuscular Volume 89.7 fL (80.0-98.0); Mean Platelet Volume 11.7 fL (9.4-12.3); Monocytes Absolute Auto 0.5 X10*3/uL (0.1-1.2); Monocytes Percent Auto 6.6 % (2-11); Neutrophils Absolute Auto 4.9 x10*3/uL (2.0-8.3); Neutrophils Percent Auto 67.5 % (45-73); Platelet Count 144 X10*3/uL (160-400); Red Blood Count 2.52 X10*6/uL (4.20-5.50); Red Cell Distribution Width 14.4 % (11.0-16.0); White Blood Count 7.3 X10*3/uL (4.8-10.8)
[2024-11-15 04:59] LABS: Magnesium 1.9 mg/dL (1.6-2.6)
[2024-11-15 05:00] LABS: Alanine Aminotransferase 8 U/L (0-31); Albumin Level 3.4 g/dL (3.5-5.0); Alkaline Phosphatase 60 U/L (39-117); Anion Gap 19 (12-20); Aspartate Amino Transferase 13 U/L (5-31); Bilirubin Total 0.2 mg/dL (0.0-1.0); Calcium 7.6 mg/dL (8.4-10.2); Carbon Dioxide 11 mmol/L (22-29); Chloride 119 mmol/L (96-108); Creatinine Clr Calc Pharmacy 8.2; Estimated Glomerular Filt Rate 6; Glucose Random 92 mg/dL (60-115); Potassium 4.6 mmol/L (3.3-5.1); Sodium 144 mmol/L (135-145); Total Protein 6.8 g/dL (6.5-8.0)
[2024-11-15 05:12] LABS: Blood Urea Nitrogen 143 mg/dL (9-16)
--- NOTE | 2024-11-15 08:22 | PHA.MEDREC ---
Pharmacy Consult ? Medication Reconciliation Pharmacy has completed the medication reconciliation. Spoke to patient via rn pool to confirmed medication list. Verified multiple times with patient that she is taking both metoprolol and carvedilol (Dr. Correia was made awared). Patient also confirmed she is still taking ferrous sulfate 325 mg bid and that she is not taking asa 81 mg daily anymore. Last dose of medications was yesterday 11/14/24.
[2024-11-15] MEDS: amLODIPine Besylate 10 MG TABLET PO (09:06)
[2024-11-15] MEDS: carvediloL 6.25 MG TABLET PO ×2 (09:06→20:43)
[2024-11-15] MEDS: Sodium Bicarbonate 650 MG TABLET 1300 MG PO ×3 (09:07→20:43)
--- NOTE | 2024-11-15 10:40 | HO.PM.IMPN ---
Subjective Subjective Date of Service: 11/15/24 Interval History: n/v Physical Exam Vital Signs: Vital Signs: Last Vital Signs Temp 97.6 F 11/15/24 09:03 Pulse 69 11/15/24 09:06 Resp 16 11/15/24 09:03 BP 156/78 H 11/15/24 09:06 Pulse Ox 100 11/15/24 09:03 O2 Del Method Room Air 11/15/24 09:03 BMI result Body Mass Index 28.3 General: AO X 3, no acute distress Resp: CTA bilateral, no accessory muscles used CVS: S1,S2,RRR GI: soft, non tender, non distended Neuro: motor grossly intact, alert Psych: appropriate affect, appropriate insight Objective Data Active Medications Acetaminophen (Acetaminophen 325 Mg Tablet) 650 mg PO Q6H PRN PRN Reason: Pain, Mild 1-3,fever,headache Amlodipine Besylate (Amlodipine Besylate 10 Mg Tablet) 10 mg PO DAILY [facility]; Protocol Last Admin: 11/15/24 09:06 Dose: 10 mg Documented By: KAREN Atorvastatin Calcium (Atorvastatin Calcium 80 Mg Tablet) 80 mg PO BEDTIME [facility] Benzonatate (Benzonatate 100 Mg Capsule) 100 mg PO TID PRN PRN Reason: Cough Calcium Carbonate (Calcium Carbonate 750 Mg Tab.Chew) 750 mg PO Q4H PRN PRN Reason: Heartburn Carvedilol (Carvedilol 6.25 Mg Tablet) 6.25 mg PO BID [facility]; Protocol Last Admin: 11/15/24 09:06 Dose: 6.25 mg Documented By: KAREN Heparin Sodium (Porcine) (Heparin Sodium,Porcine 5,000 Unit/Ml Vial) 5,000 unit SUBCUT Q8H [facility] Last Admin: 11/15/24 03:43 Dose: 5,000 unit Documented By: BRENT Dextrose/Sodium Chloride (D51/2ns) 1,000 mls @ 100 mls/hr IVCONT .Q10H [facility] Last Admin: 11/15/24 03:44 Dose: 100 mls/hr Documented By: BRENT Comments: unable to scan barcode, verified with melanie, rn Magnesium Hydroxide (Milk Of Magnesia 30 Ml Oral.Susp) 30 ml PO DAILY PRN PRN Reason: Constipation Melatonin (Melatonin 3 Mg Tablet) 6 mg PO BEDTIME PRN PRN Reason: Insomnia Sevelamer Carbonate (Sevelamer Carbonate Tablet 800 Mg Tablet) 800 mg PO TIDWM [facility] Sodium Bicarbonate (Sodium Bicarbonate 650 Mg Tablet) 1,300 mg PO TID [facility] Last Admin: 11/15/24 09:07 Dose: 1,300 mg Documented By: KAREN Sodium Chloride (0.9 % Sodium Chloride Flush 3 Ml Syringe) 3 ml IVFLUSH QSHIFT [facility] Last Admin: 11/15/24 07:49 Dose: Not Given Documented By: KAREN Non-Admin Reason: IV Running Labs 11/15/24 03:38 11/15/24 03:38 Labs: Laboratory Results - last 24 hr 11/14/24 11/15/24 11/15/24 22:15 01:11 03:14 MCV 86.8 MCH 28.9 MCHC 33.3 RDW 14.4 Plt Count 152 L MPV 11.1 Immature Gran % (Auto) 0.3 Neut % (Auto) 77.7 H Lymph % (Auto) 14.2 L [place] % (Auto) 6.1 Eos % (Auto) 1.2 Baso % (Auto) 0.5 Lymph # (Auto) 1.3 [place] # (Auto) 0.6 Eos # (Auto) 0.1 Baso # (Auto) 0.1 Abs Immat Gran (auto) 0.03 Absolute Neuts (auto) 7.2 Absolute Nucleated RBC 0.000 Nucleated RBC % (auto) 0.0 PT 11.3 INR 1.0 D-Dimer High Sensitivty 871 VBG pH 7.28 L VBG pCO2 20 VBG pO2 60 VBG HCO3 10 L VBG O2 Saturation 89.0 VBG Base Excess -14.7 Anion Gap 22 H Estim Creat Clear Calc 8.2 Estimated GFR 6 Random Glucose 96 Lactic Acid Calcium 7.7 L Magnesium Total Bilirubin 0.2 Direct Bilirubin < 0.2 AST 13 ALT 8 Alkaline Phosphatase 67 Total Protein 7.3 Albumin 3.6 Lipase 50 Urine Color Yellow Urine Appearance Clear Urine pH 6.0 Ur Specific [place] 1.010 Urine Protein 100 (2+) H Urine Glucose (UA) 100 H Urine Ketones Negative Urine Blood Small (1+) H Urine Nitrite Negative Ur Leukocyte Esterase Negative Urine RBC 0-2 Urine WBC 0-5 Ur Squamous Epith Cells 0-2 Urine Bacteria None Seen Hyaline Casts 0-2 Influenza Type A (PCR) NEGATIVE Influenza Type B (PCR) NEGATIVE RSV RNA Qual (PCR) NEGATIVE SARS-CoV-2 RNA (RT-PCR) NEGATIVE S. pyogenes GrpA AL Negative Blood Type Antibody Screen 11/15/24 11/15/24 11/15/24 03:38 03:38 03:38 MCV 89.7 MCH 29.0 MCHC 32.3 RDW 14.4 Plt Count 144 L MPV 11.7 Immature Gran % (Auto) 0.3 Neut % (Auto) 67.5 Lymph % (Auto) 24.2 [place] % (Auto) 6.6 Eos % (Auto) 1.0 Baso % (Auto) 0.4 Lymph # (Auto) 1.8 [place] # (Auto) 0.5 Eos # (Auto) 0.1 Baso # (Auto) 0.0 Abs Immat Gran (auto) 0.02 Absolute Neuts (auto) 4.9 Absolute Nucleated RBC 0.000 Nucleated RBC % (auto) 0.0 PT INR D-Dimer High Sensitivty VBG pH VBG pCO2 VBG pO2 VBG HCO3 VBG O2 Saturation VBG Base Excess Anion Gap 19 Cancelled Estim Creat Clear Calc 8.2 Cancelled Estimated GFR 6 Random Glucose Lactic Acid Calcium Magnesium Total Bilirubin Direct Bilirubin AST ALT Alkaline Phosphatase Total Protein Albumin Lipase Urine Color Urine Appearance Urine pH Ur Specific Point Urine Protein Urine Glucose (UA) Urine Ketones Urine Blood Urine Nitrite Ur Leukocyte Esterase Urine RBC Urine WBC Ur Squamous Epith Cells Urine Bacteria Hyaline Casts Influenza Type A (PCR) Influenza Type B (PCR) RSV RNA Qual (PCR) SARS-CoV-2 RNA (RT-PCR) S. pyogenes GrpA AL Blood Type Antibody Screen 11/15/24 11/15/24 11/15/24 03:38 03:38 03:38 MCV MCH MCHC RDW Plt Count MPV Immature Gran % (Auto) Neut % (Auto) Lymph % (Auto) [place] % (Auto) Eos % (Auto) Baso % (Auto) Lymph # (Auto) [place] # (Auto) Eos # (Auto) Baso # (Auto) Abs Immat Gran (auto) Absolute Neuts (auto) Absolute Nucleated RBC Nucleated RBC % (auto) PT INR D-Dimer High Sensitivty VBG pH VBG pCO2 VBG pO2 VBG HCO3 VBG O2 Saturation VBG Base Excess Anion Gap Estim Creat Clear Calc Estimated GFR Cancelled Random Glucose 92 Cancelled Lactic Acid 0.7 Calcium 7.6 L Cancelled Magnesium 1.9 Total Bilirubin Direct Bilirubin AST ALT Alkaline Phosphatase Total Protein Albumin Lipase Urine Color Urine Appearance Urine pH Ur Specific [place] Urine Protein Urine Glucose (UA) Urine Ketones Urine Blood Urine Nitrite Ur Leukocyte Esterase Urine RBC Urine WBC Ur Squamous Epith Cells Urine Bacteria Hyaline Casts Influenza Type A (PCR) Influenza Type B (PCR) RSV RNA Qual (PCR) SARS-CoV-2 RNA (RT-PCR) S. pyogenes GrpA AL Blood Type Antibody Screen 11/15/24 11/15/24 11/15/24 03:38 03:43 04:22 MCV MCH MCHC RDW Plt Count MPV Immature Gran % (Auto) Neut % (Auto) Lymph % (Auto) [place] % (Auto) Eos % (Auto) Baso % (Auto) Lymph # (Auto) [place] # (Auto) Eos # (Auto) Baso # (Auto) Abs Immat Gran (auto) Absolute Neuts (auto) Absolute Nucleated RBC Nucleated RBC % (auto) PT INR D-Dimer High Sensitivty VBG pH 7.30 L VBG pCO2 22 VBG pO2 40 VBG HCO3 11 L VBG O2 Saturation 66.0 VBG Base Excess -13.3 Anion Gap Estim Creat Clear Calc Estimated GFR Random Glucose Lactic Acid Calcium Magnesium Cancelled Total Bilirubin 0.2 Direct Bilirubin AST 13 ALT 8 Alkaline Phosphatase 60 Total Protein 6.8 Albumin 3.4 L Lipase Urine Color Urine Appearance Urine pH Ur Specific [place] Urine Protein Urine Glucose (UA) Urine Ketones Urine Blood Urine Nitrite Ur Leukocyte Esterase Urine RBC Urine WBC Ur Squamous Epith Cells Urine Bacteria Hyaline Casts Influenza Type A (PCR) Influenza Type B (PCR) RSV RNA Qual (PCR) SARS-CoV-2 RNA (RT-PCR) S. pyogenes GrpA AL Blood Type A Positive Antibody Screen NEGATIVE Assessment and Plan (1) Acute vomiting: Status: Acute Plan 59F PMH CKD 5, hypertension, hyperlipidemia, dysphagia, coronary artery disease, secondary hyperparathyroidism, anemia of chronic disease, chronic metabolic acidosis presented with nausea and vomiting Nausea and vomiting Possibly uremia Nephro eval Supportive care CKD 5 with chronic metabolic acidosis Nephro eval, continue phosphate binders and sodium bicarb Hypertension Continue amlodipine DVT prophylaxis with heparin Full code reason for continued hospitalization: Not tolerating p.o. Quality Stroke Does the patient have a stroke diagnosis?: No VTE Prior VTE?: No VTE Risk Level:: Medical - moderate - high VTE Device Contraindication: Patient Refused VTE Drug Contraindication: N/A - Med Ordered
[2024-11-15] MEDS: Sevelamer Carbonate Tablet 800 MG TABLET PO ×2 (12:08→17:30)
[2024-11-15] MEDS: Acetaminophen 325 MG TABLET 650 MG PO (17:29)
[2024-11-15] MEDS: Atorvastatin Calcium 80 MG TABLET PO (20:43)
[2024-11-16] MEDS: Dextrose 5 % and 0.45 % NaCl 1,000 ML 100 ML IVCONT (02:19)
[2024-11-16] MEDS: Acetaminophen 325 MG TABLET 650 MG PO ×2 (02:24→17:53)
[2024-11-16] MEDS: Heparin Sodium,Porcine 5,000 UNIT/ML VIAL 5000 UNIT SUBCUT ×3 (02:26→19:48)
[2024-11-16 03:20] VITALS: BP 126/62; PULSE 68; RESP 18; TEMP 35.7; O2SAT 100
[2024-11-16 07:02] VITALS: BP 126/66; PULSE 97; RESP 19; TEMP 36.4; O2SAT 99
[2024-11-16] MEDS: carvediloL 6.25 MG TABLET PO ×2 (08:39→19:47)
[2024-11-16] MEDS: amLODIPine Besylate 10 MG TABLET PO (08:39)
[2024-11-16] MEDS: Sevelamer Carbonate Tablet 800 MG TABLET PO ×3 (08:39→17:52)
[2024-11-16] MEDS: Sodium Bicarbonate 650 MG TABLET 1300 MG PO ×3 (08:39→19:48)
[2024-11-16] MEDS: 0.9 % Sodium Chloride Flush 3 ML SYRINGE IVFLUSH ×2 (08:41→15:26)
--- NOTE | 2024-11-16 09:42 | P.PNIM_ITS ---
Subjective Subjective Date of Service: 11/16/24 Interval History: ready for solids Physical Exam 2 Vital Signs: Vital Signs: Last Vital Signs Temp 97.6 F 11/16/24 07:02 Pulse 97 11/16/24 07:02 Resp 19 11/16/24 07:02 BP 126/66 11/16/24 07:02 Pulse Ox 99 11/16/24 07:02 O2 Del Method Room Air 11/16/24 07:02 BMI result Body Mass Index 28.4 General: AO X 3, no acute distress Resp: CTA bilateral, no accessory muscles used CVS: S1,S2,RRR GI: soft, non tender, non distended Neuro: motor grossly intact, alert Psych: appropriate affect, appropriate insight Objective Data Active Medications Acetaminophen (Acetaminophen 325 Mg Tablet) 650 mg PO Q6H PRN PRN Reason: Pain, Mild 1-3,fever,headache Last Admin: 11/16/24 02:24 Dose: 650 mg Documented By: PATRICA Amlodipine Besylate (Amlodipine Besylate 10 Mg Tablet) 10 mg PO DAILY [facility]; Protocol Last Admin: 11/16/24 08:39 Dose: 10 mg Documented By: BENTON Atorvastatin Calcium (Atorvastatin Calcium 80 Mg Tablet) 80 mg PO BEDTIME [facility] Last Admin: 11/15/24 20:43 Dose: 80 mg Documented By: PATRICA Benzonatate (Benzonatate 100 Mg Capsule) 100 mg PO TID PRN PRN Reason: Cough Calcium Carbonate (Calcium Carbonate 750 Mg Tab.Chew) 750 mg PO Q4H PRN PRN Reason: Heartburn Carvedilol (Carvedilol 6.25 Mg Tablet) 6.25 mg PO BID [facility]; Protocol Last Admin: 11/16/24 08:39 Dose: 6.25 mg Documented By: BENTON Heparin Sodium (Porcine) (Heparin Sodium,Porcine 5,000 Unit/Ml Vial) 5,000 unit SUBCUT Q8H [facility] Last Admin: 11/16/24 02:26 Dose: 5,000 unit Documented By: PATRICA Magnesium Hydroxide (Milk Of Magnesia 30 Ml Oral.Susp) 30 ml PO DAILY PRN PRN Reason: Constipation Melatonin (Melatonin 3 Mg Tablet) 6 mg PO BEDTIME PRN PRN Reason: Insomnia Sevelamer Carbonate (Sevelamer Carbonate Tablet 800 Mg Tablet) 800 mg PO TIDWM [facility] Last Admin: 11/16/24 08:39 Dose: 800 mg Documented By: BENTON Sodium Bicarbonate (Sodium Bicarbonate 650 Mg Tablet) 1,300 mg PO TID [facility] Last Admin: 11/16/24 08:39 Dose: 1,300 mg Documented By: BENTON Sodium Chloride (0.9 % Sodium Chloride Flush 3 Ml Syringe) 3 ml IVFLUSH QSHIFT [facility] Last Admin: 11/16/24 08:41 Dose: 3 ml Documented By: BENTON Labs 11/15/24 03:38 11/15/24 03:38 Assessment and Plan (1) Acute vomiting: Status: Acute Plan 59F PMH CKD 5, hypertension, hyperlipidemia, dysphagia, coronary artery disease, secondary hyperparathyroidism, anemia of chronic disease, chronic metabolic acidosis presented with nausea and vomiting Nausea and vomiting Possibly uremia Nephro appreciated, plan for cath and HD tomorrow will advance to solids today Supportive care CKD 5 with chronic metabolic acidosis Nephro eval, continue phosphate binders and sodium bicarb, HD tomorrow Hypertension Continue amlodipine DVT prophylaxis with heparin Full code reason for continued hospitalization: hD Quality Stroke Does the patient have a stroke diagnosis?: No VTE Prior VTE?: No VTE Risk Level:: Medical - moderate - high VTE Device Contraindication: Patient Refused VTE Drug Contraindication: N/A - Med Ordered
[2024-11-16 11:10] VITALS: BP 134/76; PULSE 83; RESP 20; TEMP 36.3; O2SAT 100
[2024-11-16 14:59] VITALS: BP 132/64; PULSE 74; RESP 18; TEMP 36.1; O2SAT 96
--- NOTE | 2024-11-16 16:11 | MHC.CM.PN ---
CM MET WITH PT AND DAUGHTERS AT BEDSIDE PT LIVES ALONE AND HER DAUGHTER, TRISTAN, IS HER FULL STACK ENGINEER DAILY SHE HAS NO DME HCP ON FILE PCP: DIE[facility] ALAMO DELIVERED DCP: [facility] [employer] [facility] TRISTAN WILL TRANSPORT
[2024-11-16] MEDS: Atorvastatin Calcium 80 MG TABLET PO (19:57)
[2024-11-16 20:00] VITALS: BP 141/72; PULSE 82; RESP 16; TEMP 36; O2SAT 99
[2024-11-17] VITALS (17 sets, daily range): BP systolic 124–172; BP diastolic 63–90; PULSE 74–91; RESP 13–20; TEMP 36.1–36.4; O2SAT 95–100
[2024-11-17 07:14] LABS: Anion Gap 16 (12-20); Blood Urea Nitrogen 119 mg/dL (9-16); Calcium 7.7 mg/dL (8.4-10.2); Carbon Dioxide 13 mmol/L (22-29); Chloride 121 mmol/L (96-108); Creatinine Clr Calc Pharmacy 8.4; Estimated Glomerular Filt Rate 6; Glucose Random 86 mg/dL (60-115); Potassium 4.5 mmol/L (3.3-5.1); Sodium 145 mmol/L (135-145)
--- NOTE | 2024-11-17 08:21 | P.PNIM_ITS ---
Subjective Subjective Date of Service: 11/17/24 Interval History: nausea Physical Exam 2 Vital Signs: Vital Signs: Last Vital Signs Temp 97.5 F 11/17/24 07:04 Pulse 74 11/17/24 07:04 Resp 18 11/17/24 07:04 BP 124/66 11/17/24 07:04 Pulse Ox 100 11/17/24 07:04 O2 Del Method Room Air 11/17/24 07:04 BMI result Body Mass Index 28.4 General: AO X 3, no acute distress, nauseous Resp: CTA bilateral, no accessory muscles used CVS: S1,S2,RRR GI: soft, non tender, non distended Neuro: motor grossly intact, alert, asterixis Psych: appropriate affect, appropriate insight Objective Data Active Medications Acetaminophen (Acetaminophen 325 Mg Tablet) 650 mg PO Q6H PRN PRN Reason: Pain, Mild 1-3,fever,headache Last Admin: 11/16/24 17:53 Dose: 650 mg Documented By: BENTON Amlodipine Besylate (Amlodipine Besylate 10 Mg Tablet) 10 mg PO DAILY [facility]; Protocol Last Admin: 11/17/24 08:05 Dose: Not Given Documented By: AYO Non-Admin Reason: NPO Atorvastatin Calcium (Atorvastatin Calcium 80 Mg Tablet) 80 mg PO BEDTIME [facility] Last Admin: 11/16/24 19:57 Dose: 80 mg Documented By: PATRICA Benzonatate (Benzonatate 100 Mg Capsule) 100 mg PO TID PRN PRN Reason: Cough Calcium Carbonate (Calcium Carbonate 750 Mg Tab.Chew) 750 mg PO Q4H PRN PRN Reason: Heartburn Carvedilol (Carvedilol 6.25 Mg Tablet) 6.25 mg PO BID [facility]; Protocol Last Admin: 11/17/24 08:05 Dose: Not Given Documented By: AYO Non-Admin Reason: NPO Heparin Sodium (Porcine) (Heparin Sodium,Porcine 5,000 Unit/Ml Vial) 5,000 unit SUBCUT Q8H [facility] Last Admin: 11/17/24 05:19 Dose: Not Given Documented By: PATRICA Non-Admin Reason: Physician Held Med Magnesium Hydroxide (Milk Of Magnesia 30 Ml Oral.Susp) 30 ml PO DAILY PRN PRN Reason: Constipation Melatonin (Melatonin 3 Mg Tablet) 6 mg PO BEDTIME PRN PRN Reason: Insomnia Sevelamer Carbonate (Sevelamer Carbonate Tablet 800 Mg Tablet) 800 mg PO TIDWM [facility] Last Admin: 11/17/24 08:05 Dose: Not Given Documented By: AYO Non-Admin Reason: NPO Sodium Bicarbonate (Sodium Bicarbonate 650 Mg Tablet) 1,300 mg PO TID [facility] Last Admin: 11/17/24 08:06 Dose: Not Given Documented By: AYO Non-Admin Reason: NPO Sodium Chloride (0.9 % Sodium Chloride Flush 3 Ml Syringe) 3 ml IVFLUSH QSHIFT [facility] Last Admin: 11/17/24 05:19 Dose: Not Given Documented By: PATRICA Non-Admin Reason: Previously Administered Labs 11/15/24 03:38 11/17/24 06:27 Labs: Laboratory Results - last 24 hr 11/17/24 06:27 Hold Purple Top SEE NOTE Anion Gap 16 Estim Creat Clear Calc 8.4 Estimated GFR 6 Random Glucose 86 Calcium 7.7 L Assessment and Plan (1) Acute vomiting: Status: Acute Plan 59F PMH CKD 5, hypertension, hyperlipidemia, dysphagia, coronary artery disease, secondary hyperparathyroidism, anemia of chronic disease, chronic metabolic acidosis presented with nausea and vomiting Nausea and vomiting Possibly uremia Nephro appreciated, plan for cath and HD today CKD 5 with chronic metabolic acidosis Nephro eval, continue phosphate binders and sodium bicarb, HD today Hypertension Continue amlodipine DVT prophylaxis with heparin Full code reason for continued hospitalization: hD Quality Stroke Does the patient have a stroke diagnosis?: No VTE Prior VTE?: No VTE Risk Level:: Medical - moderate - high VTE Device Contraindication: Patient Refused VTE Drug Contraindication: N/A - Med Ordered
[2024-11-17] MEDS: 0.9 % Sodium Chloride Flush 3 ML SYRINGE IVFLUSH ×2 (09:53→17:51)
[2024-11-17] MEDS: ondansetron HCL 4 MG/2 ML VIAL IVPUSH ×2 (09:53→17:43)
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
--- NOTE | 2024-11-17 14:51 | MHC.CM.PN ---
EMR reviewed and per MD rounds, pt is not medically cleared for discharge due to HD starting today.
[2024-11-17] MEDS: fentaNYL citrate/PF 100 MCG/2 ML VIAL 25 MCG IVPUSH ×3 (16:40→17:05)
[2024-11-17] MEDS: Sevelamer Carbonate Tablet 800 MG TABLET PO (18:33)
[2024-11-17] MEDS: Sodium Bicarbonate 650 MG TABLET 1300 MG PO ×2 (18:34→20:52)
[2024-11-17] MEDS: Atorvastatin Calcium 80 MG TABLET PO (20:52)
[2024-11-17] MEDS: carvediloL 6.25 MG TABLET PO (20:52)
[2024-11-17] MEDS: Heparin Sodium,Porcine 5,000 UNIT/ML VIAL 5000 UNIT SUBCUT (20:52)
[2024-11-17] MEDS: Epoetin Alfa-epbx 10,000 UNIT/ML VIAL 10000 UNIT SUBCUT (20:53)
[2024-11-17] MEDS: Acetaminophen 325 MG TABLET 650 MG PO (23:01)
[2024-11-18 03:15] VITALS: BP 139/69; PULSE 76; RESP 20; TEMP 36.2; O2SAT 98
[2024-11-18] MEDS: Heparin Sodium,Porcine 5,000 UNIT/ML VIAL 5000 UNIT SUBCUT ×3 (04:18→20:04)
[2024-11-18] MEDS: 0.9 % Sodium Chloride Flush 3 ML SYRINGE IVFLUSH ×4 (04:21→20:05)
[2024-11-18 07:07] LABS: Hematocrit 22.7 % (37.0-47.0); Hemoglobin 7.4 g/dl (12.0-16.0); Mean Corpuscular HGB Conc 32.6 g/dl (31.0-35.0); Mean Corpuscular Hemoglobin 28.8 pg (27.0-33.0); Mean Corpuscular Volume 88.3 fL (80.0-98.0); Mean Platelet Volume 11.5 fL (9.4-12.3); Platelet Count 149 X10*3/uL (160-400); Red Blood Count 2.57 X10*6/uL (4.20-5.50); Red Cell Distribution Width 14.4 % (11.0-16.0); White Blood Count 6.9 X10*3/uL (4.8-10.8)
[2024-11-18 07:27] LABS: Anion Gap 16 (12-20); Blood Urea Nitrogen 110 mg/dL (9-16); Calcium 8.1 mg/dL (8.4-10.2); Carbon Dioxide 15 mmol/L (22-29); Chloride 117 mmol/L (96-108); Creatinine Clr Calc Pharmacy 8.8; Estimated Glomerular Filt Rate 6; Glucose Random 91 mg/dL (60-115); Magnesium 1.8 mg/dL (1.6-2.6); Potassium 4.6 mmol/L (3.3-5.1); Sodium 143 mmol/L (135-145)
[2024-11-18 08:00] VITALS: BP 143/83; PULSE 79; RESP 17; TEMP 36.3; O2SAT 98
--- NOTE | 2024-11-18 08:14 | PC.NURSE ---
pt out of room in dialysis at 0814. morning meds to be given after dialysis
--- NOTE | 2024-11-18 08:46 | HO.PM.IMPN ---
Subjective Subjective Date of Service: 11/18/24 Interval History: nausea Physical Exam Vital Signs: Vital Signs: Last Vital Signs Temp 97.3 F 11/18/24 08:00 Pulse 79 11/18/24 08:00 Resp 17 11/18/24 08:00 BP 143/83 H 11/18/24 08:00 Pulse Ox 98 11/18/24 08:00 O2 Del Method Room Air 11/18/24 08:00 O2 Flow Rate 2 11/17/24 17:00 BMI result Body Mass Index 28.4 General: AO X 3, no acute distress, nauseous Resp: CTA bilateral, no accessory muscles used CVS: S1,S2,RRR GI: soft, non tender, non distended Neuro: motor grossly intact, alert, asterixis Psych: appropriate affect, appropriate insight Objective Data Active Medications Acetaminophen (Acetaminophen 325 Mg Tablet) 650 mg PO Q6H PRN PRN Reason: Pain, Mild 1-3,fever,headache Last Admin: 11/17/24 23:01 Dose: 650 mg Documented By: ANTHONY Amlodipine Besylate (Amlodipine Besylate 10 Mg Tablet) 10 mg PO DAILY [facility]; Protocol Last Admin: 11/17/24 08:05 Dose: Not Given Documented By: AYO Non-Admin Reason: NPO Atorvastatin Calcium (Atorvastatin Calcium 80 Mg Tablet) 80 mg PO BEDTIME [facility] Last Admin: 11/17/24 20:52 Dose: 80 mg Documented By: ANTHONY Benzonatate (Benzonatate 100 Mg Capsule) 100 mg PO TID PRN PRN Reason: Cough Calcium Carbonate (Calcium Carbonate 750 Mg Tab.Chew) 750 mg PO Q4H PRN PRN Reason: Heartburn Carvedilol (Carvedilol 6.25 Mg Tablet) 6.25 mg PO BID [facility]; Protocol Last Admin: 11/17/24 20:52 Dose: 6.25 mg Documented By: ANTHONY Epoetin Kevin-epbx (Epoetin Kevin-Epbx 10,000 Unit/Ml Vial) 10,000 unit SUBCUT [id number] [facility] Last Admin: 11/17/24 20:53 Dose: 10,000 unit Documented By: ANTHONY Heparin Sodium (Porcine) (Heparin Sodium,Porcine 5,000 Unit/Ml Vial) 5,000 unit SUBCUT Q8H [facility] Last Admin: 11/18/24 04:18 Dose: 5,000 unit Documented By: FRANSICO Magnesium Hydroxide (Milk Of Magnesia 30 Ml Oral.Susp) 30 ml PO DAILY PRN PRN Reason: Constipation Melatonin (Melatonin 3 Mg Tablet) 6 mg PO BEDTIME PRN PRN Reason: Insomnia Ondansetron HCl (Ondansetron Hcl 4 Mg/2 Ml Vial) 4 mg IVPUSH Q6H PRN PRN Reason: Nausea Last Admin: 11/17/24 17:43 Dose: 4 mg Documented By: AYO Sevelamer Carbonate (Sevelamer Carbonate Tablet 800 Mg Tablet) 800 mg PO TIDWM [facility] Last Admin: 11/17/24 18:33 Dose: 800 mg Documented By: AYO Sodium Bicarbonate (Sodium Bicarbonate 650 Mg Tablet) 1,300 mg PO TID [facility] Last Admin: 11/17/24 20:52 Dose: 1,300 mg Documented By: ANTHONY Sodium Chloride (0.9 % Sodium Chloride Flush 3 Ml Syringe) 3 ml IVFLUSH QSHIFT [facility] Last Admin: 11/18/24 04:21 Dose: 3 ml Documented By: FRANSICO Labs 11/18/24 06:20 11/18/24 06:20 Labs: Laboratory Results - last 24 hr 11/18/24 06:20 MCV 88.3 MCH 28.8 MCHC 32.6 RDW 14.4 Plt Count 149 L MPV 11.5 Absolute Nucleated RBC 0.000 Nucleated RBC % (auto) 0.0 Anion Gap 16 Estim Creat Clear Calc 8.8 Estimated GFR 6 Random Glucose 91 Calcium 8.1 L Magnesium 1.8 Assessment and Plan (1) Acute vomiting: Status: Acute Plan 59F PMH CKD 5, hypertension, hyperlipidemia, dysphagia, coronary artery disease, secondary hyperparathyroidism, anemia of chronic disease, chronic metabolic acidosis presented with nausea and vomiting Nausea and vomiting Possibly uremia in CKD V with chronic metaboilic acidosis Nephro appreciated, s/p permcath 11/17/24 starting HD today 11/18/24 continue phosphate binders and po sodium bicarb Hypertension Continue amlodipine DVT prophylaxis with heparin Full code reason for continued hospitalization: HD Quality Stroke Does the patient have a stroke diagnosis?: No VTE Prior VTE?: No VTE Risk Level:: Medical - moderate - high VTE Device Contraindication: Patient Refused VTE Drug Contraindication: N/A - Med Ordered
--- NOTE | 2024-11-18 11:33 | P.PNNPD_ITS ---
Subjective Subjective Date of Service: 11/18/24 This patient was seen during dialysis. Interval history: nausea Physical Exam Vital Signs: Vital Signs: Last Vital Signs Temp 97.3 F 11/18/24 08:00 Pulse 79 11/18/24 08:00 Resp 17 11/18/24 08:00 BP 143/83 H 11/18/24 08:00 Pulse Ox 98 11/18/24 08:00 O2 Del Method Room Air 11/18/24 08:00 O2 Flow Rate 2 11/17/24 17:00 BMI result Body Mass Index 28.4 HEENT: Other: Face is symmetrical. Mucous membranes are not obviously dry. The posterior pharynx is unremarkable. Eyes: General: appearance normal, both eyes and all related structures Conjunctivae: conjunctivae normal Sclerae: sclerae normal Neck: Neck: Yes full ROM Resp: Effort & Inspection: normal respiratory effort Auscultation: clear to auscultation bilaterally Cardio: Rate: regular rate Rhythm: regular rhythm Heart sounds: S1 normal heart sound present and S2 normal heart sound present GI: Other: Abdomen is soft and nontender. rectal exam revealed external hemorrhoids present. There did not seem to be any definite stool in the rectal vault. There was a small amount of bright red blood on my glove but no definite stool. My impression was that the blood was hemorrhoidal. Skin: Other: Skin is pale and dry Neuro: Other: the patient is awake and alert with a normal mental status. Cranial nerves 2- 12 are grossly intact. She moves her extremities normally. she has a normal gait. Extrem: General: Yes no pedal edema and Yes no calf tenderness Assessment & Plan Assessment and plan (1) Anemia: Status: Acute (2) CKD (chronic kidney disease) stage 5, GFR less than 15 ml/min: Status: Acute Plan Advanced kidney disease approaching end stage renal disease. Status post PermCath on 11/17/2024. Started dialysis today. Epogen for anemia. She will need outpatient dialysis arrangement -I shall arrange Time Spent With Patient Time: Total time managing care of this patient today ____ minutes. Procedures Date of Service Date of Service: 11/18/24
[2024-11-18 11:53] VITALS: BP 127/74; PULSE 102; RESP 18; TEMP 36.7; O2SAT 95
[2024-11-18] MEDS: amLODIPine Besylate 10 MG TABLET PO (12:12)
[2024-11-18] MEDS: Sevelamer Carbonate Tablet 800 MG TABLET PO ×2 (12:12→17:15)
[2024-11-18] MEDS: carvediloL 6.25 MG TABLET PO ×2 (12:12→20:04)
[2024-11-18] MEDS: Sodium Bicarbonate 650 MG TABLET 1300 MG PO ×3 (12:12→20:05)
[2024-11-18 12:36] LABS: HBS Num1 9.67 mIU/mL (0-7.99); HBc Num1 0.12 S/CO (0.00-0.79); HBsAGNum1 0.22 S/CO (0.00-0.99); Hepatitis B Core Antibody Nonreactive (Nonreactive); Hepatitis B Surface Antigen Negative (Negative)
--- NOTE | 2024-11-18 13:17 | PC.NURSE ---
pt tachycardic in 110s-130s since returning from dialysis at 1200. pt asymptomatic. aware
[2024-11-18 13:53] LABS: HBS Num2 9.99 mIU/mL (0-7.99); HBS Num3 10.52 mIU/mL (0-7.99); ~Hepatitis B Surface Antibody GRAYZONE (Nonreactive)
[2024-11-18 15:17] VITALS: BP 109/62; PULSE 82; RESP 16; TEMP 36.7; O2SAT 100
[2024-11-18 19:37] VITALS: BP 116/62; PULSE 82; RESP 18; TEMP 36.4; O2SAT 100
[2024-11-18] MEDS: Atorvastatin Calcium 80 MG TABLET PO (20:04)
[2024-11-18] MEDS: Benzonatate 100 MG CAPSULE PO (20:04)
[2024-11-18 23:16] VITALS: BP 120/59; PULSE 85; RESP 18; TEMP 36.4; O2SAT 96
[2024-11-19] VITALS (7 sets, daily range): BP systolic 106–127; BP diastolic 52–79; PULSE 79–93; RESP 14–20; TEMP 36.1–37; O2SAT 96–98
[2024-11-19] MEDS: ondansetron HCL 4 MG/2 ML VIAL IVPUSH ×2 (03:55→10:16)
[2024-11-19] MEDS: Heparin Sodium,Porcine 5,000 UNIT/ML VIAL 5000 UNIT SUBCUT (03:55)
[2024-11-19 07:49] LABS: Mean Corpuscular HGB Conc 33.3 g/dl (31.0-35.0); Mean Corpuscular Hemoglobin 29.4 pg (27.0-33.0); Mean Corpuscular Volume 88.2 fL (80.0-98.0); Mean Platelet Volume 11.7 fL (9.4-12.3); Platelet Count 134 X10*3/uL (160-400); Red Blood Count 2.28 X10*6/uL (4.20-5.50); Red Cell Distribution Width 14.4 % (11.0-16.0); White Blood Count 7.2 X10*3/uL (4.8-10.8)
[2024-11-19 07:56] LABS: Anion Gap 12 (12-20); Blood Urea Nitrogen 63 mg/dL (9-16); Calcium 7.8 mg/dL (8.4-10.2); Carbon Dioxide 24 mmol/L (22-29); Chloride 109 mmol/L (96-108); Creatinine Clr Calc Pharmacy 11.2; Estimated Glomerular Filt Rate 8; Glucose Random 122 mg/dL (60-115); Potassium 3.7 mmol/L (3.3-5.1); Sodium 141 mmol/L (135-145)
[2024-11-19 08:07] LABS: Hemoglobin 6.7 g/dl (12.0-16.0)
[2024-11-19 08:08] LABS: Hematocrit 20.1 % (37.0-47.0)
--- NOTE | 2024-11-19 10:59 | P.PNIM_ITS ---
Subjective Subjective Date of Service: 11/19/24 Interval History: seen this morning in dialysis BP dropped post HD Hb dropped to 6.7 no reported bleeding no other events Review of Systems Review of Systems: Yes all other systems are reviewed and are negative Physical Exam 2 Vital Signs: Vital Signs: Last Vital Signs Temp 97.6 F 11/19/24 03:05 Pulse 82 11/19/24 03:05 Resp 18 11/19/24 03:05 BP 127/79 11/19/24 03:05 Pulse Ox 96 11/19/24 03:05 O2 Del Method Room Air 11/19/24 03:05 O2 Flow Rate 2 11/17/24 17:00 BMI result Body Mass Index 28.4 Const: Other: Constitutional : interactive, not in distress Cardiovascular : no JVP, no lower extremity edema Respiratory : bilateral chest movement, not in resp distress Gastrointestinal: soft, lax, Non tender Vascular: Permacath in place Skin : Warm, Dry Neurological : Alert & oriented , No focal deficit Objective Data Active Medications Acetaminophen (Acetaminophen 325 Mg Tablet) 650 mg PO Q6H PRN PRN Reason: Pain, Mild 1-3,fever,headache Last Admin: 11/17/24 23:01 Dose: 650 mg Documented By: ANTHONY Amlodipine Besylate (Amlodipine Besylate 10 Mg Tablet) 10 mg PO DAILY [facility]; Protocol Last Admin: 11/18/24 12:12 Dose: 10 mg Documented By: KAIDEN Atorvastatin Calcium (Atorvastatin Calcium 80 Mg Tablet) 80 mg PO BEDTIME [facility] Last Admin: 11/18/24 20:04 Dose: 80 mg Documented By: JOSE Benzonatate (Benzonatate 100 Mg Capsule) 100 mg PO TID PRN PRN Reason: Cough Last Admin: 11/18/24 20:04 Dose: 100 mg Documented By: JOSE Calcium Carbonate (Calcium Carbonate 750 Mg Tab.Chew) 750 mg PO Q4H PRN PRN Reason: Heartburn Carvedilol (Carvedilol 6.25 Mg Tablet) 6.25 mg PO BID [facility]; Protocol Last Admin: 11/18/24 20:04 Dose: 6.25 mg Documented By: JOSE Epoetin Kevin-epbx (Epoetin Kevin-Epbx 10,000 Unit/Ml Vial) 10,000 unit SUBCUT [id number] [facility] Last Admin: 11/17/24 20:53 Dose: 10,000 unit Documented By: ANTHONY Heparin Sodium (Porcine) (Heparin Sodium,Porcine 5,000 Unit/Ml Vial) 5,000 unit SUBCUT Q8H [facility] Last Admin: 11/19/24 03:55 Dose: 5,000 unit Documented By: JOSE Magnesium Hydroxide (Milk Of Magnesia 30 Ml Oral.Susp) 30 ml PO DAILY PRN PRN Reason: Constipation Melatonin (Melatonin 3 Mg Tablet) 6 mg PO BEDTIME PRN PRN Reason: Insomnia Ondansetron HCl (Ondansetron Hcl 4 Mg/2 Ml Vial) 4 mg IVPUSH Q6H PRN PRN Reason: Nausea Last Admin: 11/19/24 10:16 Dose: 4 mg Documented By: ALICIA Sevelamer Carbonate (Sevelamer Carbonate Tablet 800 Mg Tablet) 800 mg PO TIDWM [facility] Last Admin: 11/18/24 17:15 Dose: 800 mg Documented By: AYO Sodium Bicarbonate (Sodium Bicarbonate 650 Mg Tablet) 1,300 mg PO TID [facility] Last Admin: 11/18/24 20:05 Dose: 1,300 mg Documented By: JOSE Sodium Chloride (0.9 % Sodium Chloride Flush 3 Ml Syringe) [facility] Last Admin: 11/18/24 20:05 Dose: 3 ml Documented By: JOSE Labs 11/19/24 06:47 11/19/24 06:47 Labs: Laboratory Results - last 24 hr 11/18/24 11/19/24 11/19/24 11:40 06:47 10:18 MCV 88.2 MCH 29.4 MCHC 33.3 RDW 14.4 Plt Count 134 L MPV 11.7 Absolute Nucleated RBC 0.000 Nucleated RBC % (auto) 0.0 Anion Gap 12 Estim Creat Clear Calc 11.2 Estimated GFR 8 Random Glucose 122 H Calcium 7.8 L Hep Bs Antigen Negative Hep Bs Antibody GRAYZONE Hep B Core Total Ab Nonreactive Crossmatch (AHG) See Detail Assessment and Plan (1) Anemia: Status: Acute (2) Acute on chronic renal insufficiency: Status: Acute (3) Metabolic acidosis: Status: Acute Plan 59F PMH CKD 5, hypertension, hyperlipidemia, dysphagia, coronary artery disease, secondary hyperparathyroidism, anemia of chronic disease, chronic metabolic acidosis presented with nausea and vomiting Nausea and vomiting 2/2 Uremia in CKD V with chronic metaboilic acidosis requiring dialysis Nephro appreciated, s/p permcath 11/17/24 started HD 11/18/24 2nd HD today continue phosphate binders and po sodium bicarb Acute on chronic anemia no source of bleeding identified check occult stool give 1 unit blood EPO Hypotension post dialysis not due to severe sepsis give 1 L IVF hold Amlodipine Hypertension Hold amlodipine DVT prophylaxis with heparin Full code reason for continued hospitalization: HD Quality Stroke Does the patient have a stroke diagnosis?: No VTE Prior VTE?: No VTE Risk Level:: Medical - moderate - high VTE Device Contraindication: Patient Refused VTE Drug Contraindication: N/A - Med Ordered
[2024-11-19] MEDS: 0.9 % Sodium Chloride Flush 3 ML SYRINGE IVFLUSH ×2 (11:19→20:46)
[2024-11-19] MEDS: 0.9 % Sodium Chloride 1,000 ML 999 ML IV (11:19)
--- NOTE | 2024-11-19 13:02 | P.PNNP_ITS ---
Subjective Subjective Date of Service: 11/19/24 Interval history: seen this morning in dialysis . Going to get PRBC today. Outpatient HD arranged at [facility] HD unit ( Connie Avitia , [place]); D/W HD RN Physical Exam 2 Vital Signs: Vital Signs: Last Vital Signs Temp 97.9 F 11/19/24 11:43 Pulse 90 11/19/24 11:43 Resp 18 11/19/24 11:43 BP 106/53 L 11/19/24 11:43 Pulse Ox 96 11/19/24 11:43 O2 Del Method Room Air 11/19/24 11:43 O2 Flow Rate 2 11/17/24 17:00 BMI result Body Mass Index 28.4 Const: General: comfortable Orientation/consciousness: patient oriented x3 Eyes: EOM: EOMs intact bilaterally Neck: Neck: Yes supple Resp: Auscultation: diminished lung sounds Cardio: Rate: regular rate GI: Palpation (GI): Soft to palpation Neuro: General: patient oriented x3 and moves all extremities Objective Data Labs 11/19/24 06:47 11/19/24 06:47 Labs: Laboratory Results - last 24 hr 11/18/24 11/19/24 11/19/24 11:40 06:47 10:18 WBC 7.2 RBC 2.28 L Hgb 6.7 L* Hct 20.1 L* MCV 88.2 MCH 29.4 MCHC 33.3 RDW 14.4 Plt Count 134 L MPV 11.7 Absolute Nucleated RBC 0.000 Nucleated RBC % (auto) 0.0 Sodium 141 Potassium 3.7 Chloride 109 H Carbon Dioxide 24 Anion Gap 12 BUN 63 H Creatinine 5.52 H* Estim Creat Clear Calc 11.2 Estimated GFR 8 Random Glucose 122 H Calcium 7.8 L Hep Bs Antibody GRAYZONE Blood Type A Positive Antibody Screen NEGATIVE Crossmatch (AHG) See Detail Procedures Date of Service Date of Service: 11/19/24 Assessment & Plan Assessment and plan (1) ESRD (end stage renal disease) on dialysis: Status: Acute Plan ESRD; Initiated on HD. Seen on HD Hemodynamically stable on HD For PRBC today; Renal Diet Phos binders with meals Outpatient HD spot arranged ( Connie Avitia , [facility] Unit [phone]) Start day in outpt Unit Sunday at 7.[address] Reporter can liase with SW in HD unit prior to D/C ( SW in outpt unit may have to arrange transportation) Progress Note: Quality Stroke Does the patient have a stroke diagnosis?: No
[2024-11-19] MEDS: Sevelamer Carbonate Tablet 800 MG TABLET PO ×2 (13:18→17:10)
--- NOTE | 2024-11-19 13:32 | MHC.CM.PN ---
Addendum entered by Briana Sin 11/19/24 16:06: This CM met with pt to discuss discharge plan with the assistance of a manager [employer], she is aware that she will discharge tomorrow after HD, and has an outpt HD slot start on Friday 11/24. Pt states her daughter will transport her to HD. Pt would like VNA services also, referral sent to pts agency of choice [facility]. awaiting agency acceptance. Addendum entered by Briana Sin 11/19/24 15:16: Per MD, outpatient HD had been arranged at [facility] HD unit in [place], [place]. Original Note: EMR reviewed and per MD rounds, pt is not medically cleared for discharge due to new HD, awaiting outpt HD slot.
[2024-11-19] MEDS: Sodium Bicarbonate 650 MG TABLET 1300 MG PO ×2 (14:43→20:37)
[2024-11-19] MEDS: Epoetin Alfa-epbx 10,000 UNIT/ML VIAL 10000 UNIT SUBCUT (17:47)
[2024-11-19] MEDS: Omeprazole 20 MG CAPSULE.DR PO (17:53)
[2024-11-19] MEDS: carvediloL 6.25 MG TABLET PO (20:37)
[2024-11-19] MEDS: Atorvastatin Calcium 80 MG TABLET PO (20:37)
[2024-11-19] MEDS: Cocoa Butter/Zinc Oxide SUPP.RECT 1 SUPP PR (20:37)
[2024-11-19] MEDS: Acetaminophen 325 MG TABLET 650 MG PO (20:39)
[2024-11-20] VITALS: BP 121/62; PULSE 71; RESP 16; TEMP 36.1; O2SAT 96
[2024-11-20 03:59] VITALS: BP 142/67; PULSE 86; RESP 16; TEMP 36.4; O2SAT 96
[2024-11-20] MEDS: Omeprazole 20 MG CAPSULE.DR PO (06:26)
[2024-11-20 07:20] VITALS: BP 132/75; PULSE 79; RESP 18; TEMP 36.4; O2SAT 96
[2024-11-20 08:03] LABS: MANUAL DIFF FLAG NO
[2024-11-20 08:12] LABS: Basophils Absolute Auto 0.1 X10*3/uL (0.0-0.2); Basophils Percent Auto 0.7 % (0-2); Eosinophils Absolute Auto 0.2 X10*3/uL (0.0-0.4); Hematocrit 30.2 % (37.0-47.0); Hemoglobin 9.7 g/dl (12.0-16.0); Imm Gran Abs Auto 0.08 X10*3/uL (0.00-0.03); Imm Gran Pct Auto 0.9 % (0.0-0.4); Lymphocytes Absolute Auto 1.5 X10*3/uL (1.2-4.9); Lymphocytes Percent Auto 17.7 % (20-40); Mean Corpuscular HGB Conc 32.1 g/dl (31.0-35.0); Mean Corpuscular Hemoglobin 29.4 pg (27.0-33.0); Mean Corpuscular Volume 91.5 fL (80.0-98.0); Mean Platelet Volume 11.2 fL (9.4-12.3); Monocytes Absolute Auto 0.7 X10*3/uL (0.1-1.2); Monocytes Percent Auto 8.6 % (2-11); NRBC Pct Auto 0.2 /100WBC (0.0-0.2); Neutrophils Absolute Auto 6.1 x10*3/uL (2.0-8.3); Neutrophils Percent Auto 70.1 % (45-73); Platelet Count 132 X10*3/uL (160-400); Red Cell Distribution Width 13.8 % (11.0-16.0); White Blood Count 8.6 X10*3/uL (4.8-10.8)
[2024-11-20] MEDS: Sodium Bicarbonate 650 MG TABLET 1300 MG PO (08:16)
[2024-11-20] MEDS: carvediloL 6.25 MG TABLET PO (08:16)
[2024-11-20] MEDS: Sevelamer Carbonate Tablet 800 MG TABLET PO ×2 (08:17→13:22)
[2024-11-20] MEDS: 0.9 % Sodium Chloride Flush 3 ML SYRINGE IVFLUSH (08:19)
[2024-11-20 08:26] LABS: Anion Gap 15 (12-20); Blood Urea Nitrogen 45 mg/dL (9-16); Calcium 8.5 mg/dL (8.4-10.2); Carbon Dioxide 25 mmol/L (22-29); Chloride 108 mmol/L (96-108); Creatinine Clr Calc Pharmacy 12.7; Estimated Glomerular Filt Rate 9; Glucose Random 91 mg/dL (60-115); Potassium 4.1 mmol/L (3.3-5.1); Sodium 144 mmol/L (135-145)
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
--- NOTE | 2024-11-20 13:51 | P.PNNPD_ITS ---
Subjective Subjective Date of Service: 11/20/24 This patient was seen during dialysis. Interval history: seen this morning in dialysis . Going to get PRBC today. Outpatient HD arranged at [facility] HD unit ( [facility] Avitia , [place]); D/W HD RN Physical Exam Vital Signs: Vital Signs: Last Vital Signs Temp 97.5 F 11/20/24 07:20 Pulse 79 11/20/24 07:20 Resp 18 11/20/24 07:20 BP 132/75 11/20/24 07:20 Pulse Ox 96 11/20/24 07:20 O2 Del Method Room Air 11/20/24 07:20 O2 Flow Rate 2 11/17/24 17:00 BMI result Body Mass Index 28.4 Const: General: comfortable Orientation/consciousness: patient oriented x3 HEENT: Other: Face is symmetrical. Mucous membranes are not obviously dry. The posterior pharynx is unremarkable. Eyes: General: appearance normal, both eyes and all related structures Conjunctivae: conjunctivae normal Sclerae: sclerae normal EOM: EOMs intact bilaterally Neck: Neck: Yes full ROM and Yes supple Resp: Effort & Inspection: normal respiratory effort Auscultation: clear to auscultation bilaterally and diminished lung sounds Cardio: Rate: regular rate Rhythm: regular rhythm Heart sounds: S1 normal heart sound present and S2 normal heart sound present GI: Other: Abdomen is soft and nontender. rectal exam revealed external hemorrhoids present. There did not seem to be an y definite stool in the rectal vault. There was a small amount of bright red blood on my glove but no definite stool. My impression was that the blood was hemorrhoidal. Palpation (GI): Soft to palpation Skin: Other: Skin is pale and dry Neuro: Other: the patient is awake and alert with a normal mental status. Cranial nerves 2- 12 are grossly intact. She moves her extremities normally. she has a normal gait. General: patient oriented x3 and moves all extremities Extrem: General: Yes no pedal edema and Yes no calf tenderness Assessment & Plan Assessment and plan (1) ESRD (end stage renal disease) on dialysis: Status: Acute Plan ESRD; Initiated on HD. Seen on HD Hemodynamically stable on HD For PRBC today; Renal Diet Phos binders with meals Outpatient HD spot arranged ( [facility] Avitia , [facility] [phone]) Start day in outpt Unit Sunday at 7.30 AM Stock Trader can liase with SW in HD unit prior to D/C ( SW in outpt unit may have to arrange transportation) Time Spent With Patient Time: Total time managing care of this patient today ____ minutes. Procedures Date of Service Date of Service: 11/20/24
--- NOTE | 2024-11-20 14:32 | MHC.CM.PN ---
IMM 11/20/24, PT MEDICALLY CLEARED FOR DC HOME W/NEW COMFORT PLUS VNA FOR SN AND NEW OUTPT HD AT [facility] CHAIR TIME 7:30AM MWF, PER PT REQUEST CM CONTACTED [facility] #ON FILE W/INSTRUCTIONS TO CONTACT [facility] TOMORROW TO CONFIRM TIME THEY WOULD LIKE PT TO ARRIVE ON FRIDAY 11/24 SHE IS NEW TO HD, [facility] WILL TRANSPORT PT HOME.
--- NOTE | 2024-11-20 14:44 | W.MHC.F2F ---
Service Date Service Date: 11/20/24 Encounter Date of encounter: 11/20/24 Reasons for Services Signs and symptoms assessed: New dialysis Low BP readings Reason for detention: medication management, medication treatment and teach disease management Homebound: Leaving the home is medically contraindicated at this time without the asist of a device and/or another person due th the listed conditions above and below. Reason homebound: unable to drive Certification: Based on the above findings, I certify that this patient is confined to the home and needs intermittent detention care, physical therapy and/or speech therapy, or continues to need occupational therapy. The patient is under my care, and I have initiated the establishment of the plan of care. The patient will be followed by a physician who will periodically review the plan of care. Time Spent With Patient Time: Total time managing care of this patient today ____ minutes.
--- NOTE | 2024-11-20 15:29 | P.CDIM_ITS ---
PROVIDER RESPONSE TEXT: To clarify, the appropriate diagnosis supported by the clinical indicators: Acute blood loss anemia with baseline chronic anemia: CKD QUERY TEXT: PHYSICIAN'S DOCUMENTATION REQUEST Date of Query: 11/19/2024 10:57 AM EDT Patient Name: Anh Grace Admit Date: 11/15/2024 Dear Wili Schroeder MD, A review of the medical record indicates additional documentation may be needed. Please review below and update the documentation accordingly. Clinical Indicators: Nephrology consultation note 11/18 - Small amount of blood, my impression was blood was hemorrhoidal. H/H - 6.7/20.1 L BP 120/59 L Anemia, tachycardic since returning from dialysis Based on the above, could you clarify which of the following is the most likely type of anemia you ar e evaluating, treating, and/or monitoring? Acute blood loss anemia possible, probable, suspected etc. Acute blood loss anemia with baseline chronic anemia (specify type) Other (explain) Clinically unable to determine (explain) Thank you, Victorina Parsons, CCS, CDIS Use of terms such as suspected, likely, concern for, or probable (associated with a specific diagnosi s that is being evaluated, monitored, or treated as if it exists) are acceptable and can be coded in the inpatient se tting, when documented at the time of discharge. Please use your independent medical judgment in providing your response. THIS QUERY IS PART OF THE PERMANENT MEDICAL RECORD
== END 2024-11-20 15:30 | disposition home or self-care (01) | DRG 291 ==
LOC: HO.ED 11-15 02:39 → HO.EDOVER 11-15 02:47 → HO.IMC 11-15 08:16
PROVIDERS: Internal Medicine; Internal Medicine Hypertension Specialist; Radiology Diagnostic Radiology; Absent Provider Internal Medicine; Admitting Provider Hospitalist; Emergency Provider Emergency Medicine; PCP Internal Medicine; Visit Provider Student in an Organized Health Care Education/Training Program
PROC: 0JH63XZ Insertion of Tunneled Vascular Access Device into Chest Subcutaneous Tissue and Fascia, Percutaneous Approach (ICD-10-PCS; principal; 2024-11-17 16:00)
DX: I13.2 Hypertensive heart and chronic kidney disease with heart failure and with stage 5 chronic kidney disease, or end stage renal disease (principal); N18.6 End stage renal disease; D62 Acute posthemorrhagic anemia; E87.22 Chronic metabolic acidosis; N25.81 Secondary hyperparathyroidism of renal origin; I95.3 Hypotension of hemodialysis; I50.22 Chronic systolic (congestive) heart failure; I25.10 Atherosclerotic heart disease of native coronary artery without angina pectoris; D63.1 Anemia in chronic kidney disease; Z99.2 Dependence on renal dialysis; Z20.822 Contact with and (suspected) exposure to COVID-19; Z79.899 Other long term (current) drug therapy
CPT/HCPCS: 0241U; 36415; 36558; 71045; 74176; 76937; 78580; 80048; 80053; 80076; 81001; 82803; 83605; 83690; 83735; 84484; 85025; 85027; 85379; 85610; 86704; 86706; 86850; 86900; 86901; 86902; 86920; 86922; 87340; 87651; 90999; 93005; 99285; A9540; C1750; C1769; J1644; J2003; J2250; J2405; J2470; J3010; J7120; P9016; Q5106

== ENCOUNTER → 2024-11-14 21:57 | Outpatient (BNV) | payer OTHER, SELFPAY | PROVIDERS: Absent Provider Internal Medicine; Admitting Provider Hospitalist; Emergency Provider Emergency Medicine; Visit Provider Internal Medicine | DX: R07.9 Chest pain, unspecified (principal) | CPT/HCPCS: 93010 ==

== ENCOUNTER → 2024-11-14 22:20 | Outpatient (BNV) | payer OTHER, SELFPAY | PROVIDERS: Absent Provider Internal Medicine; Visit Provider Specialist | DX: R06.02 Shortness of breath (principal); R07.9 Chest pain, unspecified; R11.2 Nausea with vomiting, unspecified; R42 Dizziness and giddiness; R53.1 Weakness | CPT/HCPCS: 71045 ==

== ENCOUNTER 2024-11-15 02:38 | Outpatient (BNV) | payer OTHER, SELFPAY | END 2024-11-15 02:50 | PROVIDERS: Absent Provider Internal Medicine; Admitting Provider Hospitalist; Emergency Provider Emergency Medicine; Visit Provider Radiology Diagnostic Radiology | DX: N20.0 Calculus of kidney (principal); I72.2 Aneurysm of renal artery; R79.1 Abnormal coagulation profile | CPT/HCPCS: 74176; 78580 ==

== ENCOUNTER 2024-11-15 02:38 | Outpatient (BNV) | payer OTHER, SELFPAY | END 2024-11-17 17:21 | PROVIDERS: Absent Provider Internal Medicine; Admitting Provider Hospitalist; Emergency Provider Emergency Medicine; PCP Internal Medicine; Visit Provider Radiology Diagnostic Radiology | DX: N18.9 Chronic kidney disease, unspecified (principal) | CPT/HCPCS: 36558; 76937; 77001 ==

== ENCOUNTER → 2024-11-15 02:38 | Outpatient (BNV) | payer OTHER, SELFPAY | PROVIDERS: Absent Provider Internal Medicine; Admitting Provider Hospitalist; Emergency Provider Emergency Medicine; PCP Internal Medicine; Visit Provider Internal Medicine Hypertension Specialist | DX: N18.5 Chronic kidney disease, stage 5 (principal); D63.1 Anemia in chronic kidney disease | CPT/HCPCS: 90935; 99232 ==

== ENCOUNTER → 2024-11-15 02:38 | Outpatient (BNV) | payer OTHER, SELFPAY | PROVIDERS: Absent Provider Internal Medicine; Admitting Provider Hospitalist; Emergency Provider Emergency Medicine; Visit Provider Internal Medicine | DX: D64.9 Anemia, unspecified (principal); N18.9 Chronic kidney disease, unspecified; E87.20 Acidosis, unspecified | CPT/HCPCS: 99233; 99239; G0180 ==

== ENCOUNTER → 2024-11-25 23:59 | Outpatient (BNV) | payer OTHER, SELFPAY | PROVIDERS: PCP Internal Medicine; Visit Provider Internal Medicine | DX: N17.9 Acute kidney failure, unspecified (principal); E87.20 Acidosis, unspecified; D63.1 Anemia in chronic kidney disease | CPT/HCPCS: G0180 ==

== ENCOUNTER 2024-11-27 08:21 | Outpatient (AMB) | payer OTHER, SELFPAY ==
--- NOTE | 2024-11-27 08:39 | A.OFFPC_ITS ---
Vital Signs 11/27/24 08:40 Height 5 ft 5 in Weight 170 lb 9.6 oz BMI 28.4 BP 114/78 Blood Pressure Location Rt brachial Position Sitting Respiration 20 Pulse 89 Pulse Source Pulse Oximeter Temp 98.8 F Temp Source Oral Pulse Oximetry (%) 98 Oxygen Delivery Method Room Air Intake Visit Reasons: [facility]-11/20 nausea/vomiting Intake Note: Patient is here for hospital discharge follow up. Patient was discharged from [facility] on 11/20/2024. Data Abstractor Required: Yes Data Abstractor Name: daughter, refused ASL Accompanied by: Daughter Allergies Penicillins Allergy (Intermediate, Verified 11/27/24 09:13) RASH Medication List - Last Reconciled 11/27/24 by DAVIS Mulligan atorvastatin 80 mg PO BEDTIME 90 days [bed rail As directed] blood pressure monitor As directed carvedilol 6.25 mg PO BID cocoa butter-zinc oxide 76-10 % (Calmol-4) 1 supp VA QID PRN ferrous sulfate 325 mg PO BID Grab bar As directed [hand held shower As directed] hydrocortisone 2.5% 1 appl topical BID omeprazole 20 mg PO DAILY@0630 [pill box twice daily As directed] [recliner As directed] sevelamer HCl 800 mg PO TIDWM Shower Chair with back simethicone (Gas Relief (simethicone)) 180 mg PO BID PRN 30 days sitz bath As directed sitz bath As directed sodium bicarbonate 1,300 mg (2 x 650 mg) PO TID Tobacco use date assessed: 11/27/24 Dental Screening Dental Screen Date: 11/27/24 Did you have a dental visit in the last 12 months?: No Did you have a dental problem in the last 6 months where you did not have access to dental care?: No Was dental information given to patient?: Patient has dentist HPI [facility]-11/20 nausea/vomiting HPI Details The patient is a 59-year-old female with a past medical history of hy pertension, HLD, CKD stage 5 on dialysis Sunday and Sunday, dysphagia, CAD, secondary hypoparathyroidism, anemia of chronic disease. Patient of Dr. Bolanos, was last seen in office 11/04/2024 Patient is presenting for post hospital visits with complaints of nausea, vomiting, and chest pain after vomiting. This was found to be a result of uremia and CKD 5 with chronic metabolic acidosis requiring dialysis as she was evaluated by Nephrology team. Status post PermCath placement on 11/17/2024. Started HD 11/18/2024 for 3 days. She is placed on phosphate binders and p.o. sodium bicarb p.o. to follow with with dialysis as outpatient at [facility] starting on Sunday Nix The patient was evaluated for acute and chronic anemia and has no source of bleeding identified. She received 1 unit of RBC with fair response. Started on omeprazole p.o. receiving EPO with dialysis. She was also noted to have hypotension post dialysis not due to severe sepsis. Metoprolol discontinued along amlodipine was placed on hold with recommendation to monitor blood pressure readings and discussed with mechanical repair worker if needed to be restarted. The patient went to dialysis m/w/ and upcoming appt on Sunday Patient reports that she is feeling okay in his own if he in a little bit tenderness at the PermCath site Reports a small area above the PermCath site with sutures intact is very itchy and is wondering if there is anything could be done Hydrocortisone 2.5 % ointment ordered b.i.d. She requesting a script for recliner chair Patient denies shortness of breath, chest pain, heart palpitation and dizziness Denies abdominal pain or change in bowel habits abdomin soft, proturberant, nontender, left chest perma cath c/o itching at site-hydrocortisone 2.5% ointment startd lungs clear. heart sinus rhythm [facility] Medical History Acute on chronic kidney failure Secondary hyperparathyroidism (of renal origin) CKD (chronic kidney disease) stage 5, GFR less than 15 ml/min Essential hypertension History of colon polyps Anemia in chronic kidney disease (CKD) Anemia CKD (chronic kidney disease) Chronic systolic (congestive) heart failure Cardiomyopathy Normocytic anemia Surgical History Hx of colonoscopy History of surgery Status post dilation and curettage History of abdominal surgery History of extraction of renal calculus History of tubal ligation Family History Father Throat cancer Mother Hypertension Daughter In good health Daughter In good health Sister In good health Family/Other Breast cancer Social History Household Members: None Housing: Other Housing Other:: studio Are you a primary patient care associate to a significant other at home: No Do you presently have visiting nurse or other home services: No Alcohol intake: never Comment: Pt declining bed alarm Patient Tobacco Use Status: Former Tobacco user Tobacco use type: Cigarette Years Smoked: 30 +/- e-Cigarette/Vaping Use: Never Used Second Hand Smoke Exposure: No Advance Directives Date on File: 11/21/23 service: No Current occupational status: unemployed Cognitive needs: No Hearing needs: No Vision needs: No Questionnaire PHQ-9 Over the last 2 weeks, how often have you been bothered by any of the following problems? 1. Little interest or pleasure in doing things: more than half the days 2. Feeling down, depressed, or hopeless: several days 3. Trouble falling or staying asleep, or sleeping too much: several days 4. Feeling tired or having little energy: nearly every day 5. Poor appetite or overeating: not at all 6. Feeling bad about yourself - or that you are a failure or have let yourself or your family down: several days 7. Trouble concentrating on things, such as reading the newspaper or watching television: several days 8. Moving or speaking so slowly that other people could have noticed. Or the opposite - being so fidgety or restless that you have been moving around a lot more than usual: several days 9. Thoughts that you would be better off or of hurting yourself in some way: not at all Total score: 10 Depression Screening Interpretation: Positive Depression Screening Follow-up: Existing condition and Follow-up Visit Requested Depression Screening Done: Yes Source: Developed by Drs. Tarun Fernandez, Ciarra Alfred, Mik Sands and colleagues, with an educational kevan from [employer] Thrive Questionnaire Date Thrive assessed: 11/27/24 I am a: Parent/Caregiver What is your living situation today?: I have a steady place to live Within the past 12 months, did the food you bought not last and you didn't have the money to get more?: Never true Within the past 12 months, did you worry whether your food would run out before you got money to buy more?: Never true Do you have trouble paying for medicines?: No Do you have trouble getting transportation to medical appointments?: No Do you have trouble paying your heating and electricity bill?: No Do you have trouble taking care of your child, family member or friend?: No Do you have trouble with day-to-day activities such as bathing, preparing meals, shopping, managing finances, etc.?: No Are you currently unemployed and looking for a job?: No Are you interested in more education?: No Please select the resources that you would like help with: None Currently or been in a relationship where the following occur: No concerns reported THRIVE Score: 0 AUDIT C Alcohol Use Questionnaire (AUDIT-C) 1. How often do you have a drink containing alcohol?: Never Total Score: 0 Score Reviewed/Action Taken: No PAUL-7 AMB Questionnaire PAUL-7 Date PAUL - 7 assessed: 11/27/24 Feeling nervous, anxious, or on edge: 0 = Not at all Not being able to stop or control worryin = Not at all Worrying too much about different things: 1 = Several days Trouble relaxin = Several days Being so restless that it is hard to sit still: 0 = Not at all Becoming easily annoyed or irritable: 1 = Several days Feeling afraid as if something awful might happen: 0 = Not at all Total PAUL-7 score (0-4 normal; 5-9 mild; 10-14 moderate; 15-21 severe): 3 Source: Developed by Drs. Tarun Fernandez, Ciarra Alfred, Mik Sands and colleagues, with an educational kevan from [employer] Review of Systems Const Denies headache(s) Eyes Denies loss of vision ENT Denies vertigo, Denies dizziness, Denies headache(s) and Denies sore throat Card Denies chest pain, Denies leg edema and Denies lightheadedness Resp Denies cough, Denies hemoptysis and Denies wheezing GI Denies abdominal pain, Denies melena, Denies constipation, Denies diarrhea and Denies vomiting Denies urinary frequency, Denies dysuria and Denies urinary urgency Musc Denies arthralgias, Denies joint swelling, Denies numbness and Denies tingling Skin/Breast Reports pruritus (Above PermCath site on left chest-sutured area, pink suture line) Neuro Denies Abnormal speech present, Denies behavioral changes, Denies vertigo, Denies dizziness, Denies headache(s), Denies loss of vision, Denies memory loss, Denies numbness and Denies tingling Psych Denies anxiety, Denies behavioral changes, Denies depression, Denies memory loss and Denies panic attacks Omega/Lymph Denies easy bleeding and Denies easy bruising Aller/Immun Denies wheezing Physical exam (Primary Care) Vital Signs: Last Vital Signs Temp 98.8 F 11/27/24 08:40 Pulse 89 11/27/24 08:40 Resp 20 11/27/24 08:40 BP 114/78 11/27/24 08:40 Pulse Ox 98 11/27/24 08:40 Oxygen Delivery Method Room Air 11/27/24 08:40 BMI result Body Mass Index 28.4 Tobacco/Smoking Status: Tobacco use Status Tobacco use date assessed 11/27/24 11/27/24 08:50 Patient Tobacco Use Status Former Tobacco user 11/27/24 08:50 Tobacco use type Cigarette 11/27/24 08:50 e-Cigarette/Vaping Use Never Used 11/27/24 08:50 PHQ-9: PHQ-9 Score PHQ-9: Total score 10 11/27/24 09:18 Depression Screening Interpretation: Positive Depression Screening Follow-up: Existing condition and Follow-up Visit Requested Thrive Assessment: Date of Thrive Assessment Date Thrive assessed 11/27/24 11/27/24 08:50 Currently or been in a relationship where the following occur: No concerns reported Const General: healthy appearing, no acute distress, alert and awake Nutritional Appearance: well nourished Orientation/consciousness: oriented to person, oriented to place and oriented to time HENMT Ears: TM's normal bilaterally General nose exam: Normal nasal mucous membranes and turbinates present Eyes Conjunctivae: conjunctivae normal Sclerae: sclerae normal Pupils: Equal, round and reactive pupils present Neck Neck: Yes no lymphadenopathy and Yes no JVD Thyroid: Thyroid normal Carotids: no bruits Chest Chest palpation & inspection: tenderness (Above Left chest permath site (pink at suture line)) Resp Effort & Inspection: normal respiratory effort and not tachypneic Auscultation: no crackles, no rales, no rhonchi and no wheezes Cardio Rate: regular rate Rhythm: regular rhythm Heart sounds: no murmurs and normal S1 and S2 GI Inspection: Yes distended (abdomen proturberant) Palpation (GI): Soft to palpation, nontender, no hepatomegaly and no splenomegaly Auscultation: normal bowel sounds Skin General skin exam: no rashes or lesions noted, dry skin and other (left chest above permacath placement -suture sites pinkness present) Neuro General: oriented to person, oriented to place and oriented to time Cranial nerves: Yes Equal, round and reactive pupils present Speech: No Abnormal speech present Gait exam (Neuro): Normal gait present Motor exam (neuro): no tremor noted Extrem Right upper extremity: full ROM Left upper extremity: full ROM Right lower extremity: full ROM; no edema Left lower extremity: full ROM; no edema Psych Mental Status: mental status grossly normal Speech and movement: Normal speech and movement present Affect: normal affect Attitude: cooperative Thought process: Normal thought process present Coding Level of Care Code TCM Mod MDM <= 7 Days Diagnoses ESRD (end stage renal disease) on dialysis N18.6; Z99.2 Anemia due to chronic kidney disease, on chronic dialysis N18.6; D63.1; Z99.2 Anemia type: due to chronic kidney disease Chronic kidney disease stage: on chronic dialysis Metabolic acidosis E87.20 Essential hypertension I10 Itchy skin L29.9 Time Spent (min) 39 Assessment & Plan Assessment & Plan (1) ESRD (end stage renal disease) on dialysis: Code(s): N18.6 - End stage renal disease; Z99.2 - Dependence on renal dialysis Category: Medical Plan: Patient went to emergency room due to nausea and vomiting and chest pain started after vomiting. Was found to be caused by uremia in K q.d. V with chronic metabolic acidosis requiring dialysis. PermCath placement on 11/17/2024. Started on HD 11/18/24 days. The patient was also started on phosphate binders and p.o. sodium bicarb. The patient was instructed to follow up with dialysis at [facility] starting on Sunday morning. The patient was dialyzed Sunday and Sunday and will be going again tomorrow. (2) Anemia: Code(s): D64.9 - Anemia, unspecified Category: Medical Qualifiers: Anemia type: due to chronic kidney disease Chronic kidney disease stage: on chronic dialysis Qualified Code(s): N18.6 - End stage renal disease; D63.1 - Anemia in chronic kidney disease; Z99.2 - Dependence on renal dialysis Plan: Patient was given 1 unit of RBC in-hospital mild improvement. Started on omeprazole p.o. and is receiving EPO with dialysis will continue to monitor (3) Metabolic acidosis: Code(s): E87.20 - Acidosis, unspecified Category: Medical Plan: The patient was dialyzed in the hospital. She was placed on phosphate binders and p.o. sodium bicarb. Continue to follow up with [facility] outpatient Sunday, Sunday, and Sunday (4) Essential hypertension: Code(s): I10 - Essential (primary) hypertension Category: Medical Plan: Patient was found to be hypotensive after dialysis. Her metoprolol was discontinued and amlodipine was placed on hold. Continue to monitor blood pressure and follow up with Nephrology to determine if your amlodipine needs to be restarted. (5) Itchy skin: Code(s): L29.9 - Pruritus, unspecified Category: Medical Plan: Small area above PermCath with sutures intact. Pinkness suture lines- complaining of bothersome itchiness Hydrocortisone 2.5% ointment ordered Medications: New hydrocortisone 2.5% 1 appl topical BID 28.35 grams 1RF L29.9 - Pruritus, unspecified
[2024-11-27 08:40] VITALS: BP 114/78; PULSE 89; RESP 20; TEMP 37.1; O2SAT 98; BMI 28.4
== END 2024-11-27 09:15 | disposition home or self-care (01) ==
LOC: HO.HMCH 08:22
PROVIDERS: PCP Internal Medicine
DX: I12.0 Hypertensive chronic kidney disease with stage 5 chronic kidney disease or end stage renal disease (principal); N18.6 End stage renal disease; Z99.2 Dependence on renal dialysis; D63.1 Anemia in chronic kidney disease; E87.20 Acidosis, unspecified; L29.9 Pruritus, unspecified

== ENCOUNTER → 2024-11-27 08:21 | Outpatient (BNVA) | payer OTHER, SELFPAY | PROVIDERS: PCP Internal Medicine | DX: I12.9 Hypertensive chronic kidney disease with stage 1 through stage 4 chronic kidney disease, or unspecified chronic kidney disease (principal); N18.6 End stage renal disease; E78.5 Hyperlipidemia, unspecified; I25.10 Atherosclerotic heart disease of native coronary artery without angina pectoris; E20.811 Secondary hypoparathyroidism in diseases classified elsewhere; D63.1 Anemia in chronic kidney disease; E87.20 Acidosis, unspecified; L29.9 Pruritus, unspecified; Z99.2 Dependence on renal dialysis | CPT/HCPCS: 99495 ==

== ENCOUNTER 2024-12-10 13:04 | Emergency (ER) | payer OTHER, SELFPAY ==
[2024-12-10 13:21] VITALS: BP 126/71; PULSE 113; RESP 18; TEMP 36.3; O2SAT 96; BMI 28.7
--- NOTE | 2024-12-10 13:26 | ED_ITS ---
HPI - General Adult General Chief complaint: Recheck/Abnormal Lab/Rx Stated complaint: dr sent her here after dialsys Time Seen by Provider: 12/10/24 13:58 Source: patient Limitations: no limitations History of Present Illness ED Provider: Adolph Castro DO HPI narrative: 59-year-old female with past medical history of iron-deficiency anemia, end- stage renal disease on dialysis Sunday, Sunday and Sunday, anemia requiring transfusions in the past, most recently on 11/19/2024 presents to the ED from dialysis today due to a reported hemoglobin of 6 today. Patient is Belizean- speaking. History obtained with the assistance of in-person clip on sunglasses assembler, Estuardo. The patient denies any symptoms today including dizziness, weakness, fatigue, difficulty breathing, hematuria, hematochezia, melena or any signs of bleeding. She states she received her full course of dialysis. She only reports a mild headache today to see if provider. Related Data Home Medications ?Medication ?Instructions ?Recorded ?Confirmed sevelamer HCl 800 mg tablet 800 mg PO TIDWM 09/14/24 11/27/24 carvedilol 6.25 mg tablet 6.25 mg PO BID 11/15/24 11/27/24 Previous Rx's ?Medication ?Instructions ?Recorded blood pressure monitor #1 ea 11/10/23 sitz bath #1 ea 11/13/23 Grab bar #1 ea 11/22/23 Shower Chair #1 ea 11/22/23 bed rail #1 ea 11/22/23 hand held shower #1 ea 11/22/23 pill box twice daily #1 ea 11/22/23 ferrous sulfate 325 mg (65 mg 325 mg PO BID #180 tabs 07/04/24 iron) tablet,delayed release atorvastatin 80 mg tablet 80 mg PO BEDTIME 90 days #90 tabs 09/11/24 sitz bath #1 ea 09/11/24 sodium bicarbonate 650 mg tablet 1,300 mg (2 x 650 mg) PO TID #540 09/30/24 tabs simethicone 180 mg capsule (Gas 180 mg PO BID PRN abdominal 11/04/24 Relief (simethicone)) distention 30 days #60 caps cocoa butter-zinc oxide 76 %-10 % 1 supp TX QID PRN rectal bleed #24 11/20/24 rectal suppository (Calmol-4) ea omeprazole 20 mg capsule,delayed 20 mg PO DAILY@0630 #90 caps 11/20/24 release recliner #1 ea 11/24/24 hydrocortisone 2.5 % topical 1 appl topical BID #28.35 grams 11/27/24 ointment Allergies Allergy/AdvReac Type Severity Reaction Status Date / Time Penicillins Allergy Intermediate RASH Verified 12/10/24 13:23 Review of Systems 2 Review of Systems: Yes all other systems are reviewed and are negative [facility] Past Medical History Medical History Acute on chronic kidney failure Secondary hyperparathyroidism (of renal origin) CKD (chronic kidney disease) stage 5, GFR less than 15 ml/min Essential hypertension History of colon polyps Anemia in chronic kidney disease (CKD) Anemia CKD (chronic kidney disease) Chronic systolic (congestive) heart failure Cardiomyopathy Normocytic anemia Surgical History Hx of colonoscopy History of surgery Status post dilation and curettage History of abdominal surgery History of extraction of renal calculus History of tubal ligation Family History Family History Father Throat cancer Mother Hypertension Daughter In good health Daughter In good health Sister In good health Family/Other Breast cancer Social History Social History Household Members: None Housing: Other Housing Other:: studio Are you a primary career guidance counselor to a significant other at home: No Do you presently have visiting nurse or other home services: No Alcohol intake: never Comment: Pt declining bed alarm Patient Tobacco Use Status: Former Tobacco user Tobacco use type: Cigarette Years Smoked: 30 +/- e-Cigarette/Vaping Use: Never Used Second Hand Smoke Exposure: No Advance Directives: Yes Advance Directives on File: Yes Advance Directives Date on File: 11/21/23 Do you have a plan to hurt others: No Plan Patient : No service: No Current occupational status: unemployed Cognitive needs: No Hearing needs: No Vision needs: No Physical Exam ED Vital Signs: Vital Signs - 24 hr 12/10/24 13:21 Temperature 97.3 F Pulse Rate 113 H Respiratory Rate 18 Blood Pressure 126/71 Pulse Oximetry 96 Oxygen Delivery Method Room Air BMI result Body Mass Index 28.7 Constitutional: ?Alert, oriented, speaking in full sentences HEENT: ?Normocephalic, atraumatic. Eyes: ?PERRL, EOMI Neck: ?Supple, nontender Chest: ?No chest wall tenderness, port in place, does not appear infected Respiratory: ?Lungs clear to auscultation, no increased work of breathing Cardio: ?Regular rate and rhythm, no murmur GI: ?Soft, nondistended, nontender Back: ?Normal range of motion, nontender Skin: ?No rash, no lesions Neuro: ?Alert and oriented to person, place and time, moves all 4 extremities, no focal deficits Extremities: ?No swelling or tenderness, full range of motion Psych: ?Calm, alert and cooperative, appropriate behavior Course Course Course Narrative: RME, this is a rapid medical exam performed by Dino Mclaughlin please refer to primary provider for complete H&P- 59-year-old female presents for evaluation of ?blood transfusion. ? Patient presents from dialysis, her doctor sent me here and a have a blood transfusion. The patient endorses weakness. She reportedly had a hemoglobin of 6.0 today. The last labs we habitus this tomorrow from November 20, 3 weeks ago. Plan for repeat labs Medical Decision Making Medical Decision Making MDM Narrative: Patient presenting from dialysis asymptomatic with concerns for anemia. Repeat testing shows a hemoglobin of 7.3 which is consistent with her baseline. There are no signs of bleeding per history and exam and the patient is well-appearing otherwise. She is treated with acetaminophen for her headache. There are no other dangerous etiologies discovered at this time. Her potassium is 3.2 and her creatinine is consistent with post dialysis function. We provided return precautions for any concerning symptoms. Lab Data 12/10/24 13:37 12/10/24 13:37 Labs: Lab Results 12/10/24 12/10/24 Range/Units 13:37 14:07 WBC 5.9 (4.8-10.8) X10*3/uL RBC 2.43 L D (4.20-5.50) X10*6/uL Hgb 7.3 L D (12.0-16.0) g/dl Hct 22.3 L D (37.0-47.0) % MCV 91.8 (80.0-98.0) fL MCH 30.0 (27.0-33.0) pg MCHC 32.7 (31.0-35.0) g/dl RDW 14.4 (11.0-16.0) % Plt Count 184 D (160-400) X10*3/uL MPV 10.2 (9.4-12.3) fL Immature Gran % (Auto) 0.3 (0.0-0.4) % Neut % (Auto) 64.6 (45-73) % Lymph % (Auto) 23.0 (20-40) % [place] % (Auto) 9.6 (2-11) % Eos % (Auto) 2.0 (0-4) % Baso % (Auto) 0.5 (0-2) % Lymph # (Auto) 1.4 (1.2-4.9) X10*3/uL [place] # (Auto) 0.6 (0.1-1.2) X10*3/uL Eos # (Auto) 0.1 (0.0-0.4) X10*3/uL Baso # (Auto) 0.0 (0.0-0.2) X10*3/uL Abs Immat Gran (auto) 0.02 (0.00-0.03) X10*3/uL Absolute Neuts (auto) 3.8 (2.0-8.3) x10*3/uL Absolute Nucleated RBC 0.000 (0.0-0.012) X10*3/uL Nucleated RBC % (auto) 0.0 (0.0-0.2) /100WBC Sodium 144 (135-145) mmol/L Potassium 3.2 L D (3.3-5.1) mmol/L Chloride 104 (96-108) mmol/L Carbon Dioxide 31 H (22-29) mmol/L Anion Gap 12 (12-20) BUN 14 (9-16) mg/dL Creatinine 2.51 H (0.5-1.4) mg/dL Estim Creat Clear Calc 24.1 Estimated GFR 20 Random Glucose 96 (60-115) mg/dL Calcium 8.7 (8.4-10.2) mg/dL Magnesium 1.7 (1.6-2.6) mg/dL Total Bilirubin 0.3 (0.0-1.0) mg/dL AST 18 (5-31) U/L ALT 9 (0-31) U/L Alkaline Phosphatase 118 H (39-117) U/L Total Protein 7.4 (6.5-8.0) g/dL Albumin 3.9 (3.5-5.0) g/dL Blood Type A Positive Antibody Screen NEGATIVE Crossmatch (AHG) See Detail Discharge Plan Discharge Clinical Impression: Anemia Qualifiers: Anemia type: due to chronic kidney disease Chronic kidney disease stage: on chronic dialysis Qualified Code(s): N18.6 - End stage renal disease Patient Disposition: Home, Self-Care Instructions: Anemia (ED) Additional Instructions: Le evaluaron por hemoglobina baja antes de virgen llegada. Volvimos a analizarla aqu? y est? cerca de virgen valor basal, 7,3. No hay indicaciones para la infusi?n de productos sangu?neos. Le dimos Tylenol para el dolor de tomi. Por favor, vuelva si tiene alg?n signo de hemorragia, debilidad, mareos, fatiga o cualquier otra preocupaci?n aguda. Prescriptions: No Action (DME) blood pressure monitor Kit See Rx Instructions .Route Qty: 1 0RF Rx Instructions: As directed ferrous sulfate 325 mg (65 mg iron) tablet,delayed release (DR/EC) 325 mg PO BID Qty: 180 1RF sodium bicarbonate 650 mg tablet 1,300 mg PO TID Qty: 540 0RF (DME) recliner See Rx Instructions .Route .MEDSUPPLY Qty: 1 0RF Rx Instructions: As directed atorvastatin 80 mg tablet 80 mg PO BEDTIME 90 Days Qty: 90 0RF (DME) sitz bath Kit See Rx Instructions .Route Qty: 1 0RF Rx Instructions: As directed (DME) sitz bath Kit See Rx Instructions .Route Qty: 1 0RF Rx Instructions: As directed sevelamer HCl 800 mg tablet 800 mg PO TIDWM Rx Instructions: must administer with a meal/food carvedilol 6.25 mg tablet 6.25 mg PO BID omeprazole 20 mg Capsule,Delayed Release(Dr/Ec) 20 mg PO DAILY@0630 Qty: 90 0RF Calmol-4 76-10 % Suppository 1 supp TX QID PRN (Reason: rectal bleed) Qty: 24 0RF (DME) bed rail See Rx Instructions .Route .MEDSUPPLY Qty: 1 0RF Rx Instructions: As directed (DME) hand held shower See Rx Instructions .Route .MEDSUPPLY Qty: 1 0RF Rx Instructions: As directed (DME) Grab bar Misc See Rx Instructions .Route Qty: 1 0RF Rx Instructions: As directed (DME) pill box twice daily See Rx Instructions .Route .MEDSUPPLY Qty: 1 0RF Rx Instructions: As directed (DME) Shower Chair Misc See Rx Instructions .Route Qty: 1 0RF Rx Instructions: with back hydrocortisone 2.5 % ointment 1 appl topical BID Qty: 28.35 1RF simethicone [Gas Relief (simethicone)] 180 mg capsule 180 mg PO BID PRN (Reason: abdominal distention) 30 Days Qty: 60 0RF Print Language: Belizean
[2024-12-10 13:42] LABS: MANUAL DIFF FLAG NO
[2024-12-10 14:08] LABS: Alanine Aminotransferase 9 U/L (0-31); Albumin Level 3.9 g/dL (3.5-5.0); Alkaline Phosphatase 118 U/L (39-117); Anion Gap 12 (12-20); Aspartate Amino Transferase 18 U/L (5-31); Bilirubin Total 0.3 mg/dL (0.0-1.0); Blood Urea Nitrogen 14 mg/dL (9-16); Calcium 8.7 mg/dL (8.4-10.2); Carbon Dioxide 31 mmol/L (22-29); Chloride 104 mmol/L (96-108); Creatinine Clr Calc Pharmacy 24.1; Estimated Glomerular Filt Rate 20; Glucose Random 96 mg/dL (60-115); Magnesium 1.7 mg/dL (1.6-2.6); Potassium 3.2 mmol/L (3.3-5.1); Sodium 144 mmol/L (135-145); Total Protein 7.4 g/dL (6.5-8.0)
[2024-12-10 14:09] LABS: Basophils Percent Auto 0.5 % (0-2); Eosinophils Absolute Auto 0.1 X10*3/uL (0.0-0.4); Hematocrit 22.3 % (37.0-47.0); Hemoglobin 7.3 g/dl (12.0-16.0); Imm Gran Abs Auto 0.02 X10*3/uL (0.00-0.03); Imm Gran Pct Auto 0.3 % (0.0-0.4); Lymphocytes Absolute Auto 1.4 X10*3/uL (1.2-4.9); Mean Corpuscular HGB Conc 32.7 g/dl (31.0-35.0); Mean Corpuscular Volume 91.8 fL (80.0-98.0); Mean Platelet Volume 10.2 fL (9.4-12.3); Monocytes Absolute Auto 0.6 X10*3/uL (0.1-1.2); Monocytes Percent Auto 9.6 % (2-11); Neutrophils Absolute Auto 3.8 x10*3/uL (2.0-8.3); Neutrophils Percent Auto 64.6 % (45-73); Platelet Count 184 X10*3/uL (160-400); Red Blood Count 2.43 X10*6/uL (4.20-5.50); Red Cell Distribution Width 14.4 % (11.0-16.0); White Blood Count 5.9 X10*3/uL (4.8-10.8)
--- NOTE | 2024-12-10 15:14 | PC.NURSE ---
dialysis port on left anterior chest. pt denies having an AV fistula. IV line placed on left forearm. no pain. awaiting further orders
[2024-12-10] MEDS: Acetaminophen 1,000 MG/100 ML PIGGYBACK 400 MG IV (16:07)
--- OUTSIDE RECORDS SUMMARY | 2024-12-10 16:25 | XMS_ITS | Referral Summary ---
Author Organization [facility] Address [address] [place] [address] Care Team Providers Care Tile Ditcher Name Role Phone Emanuel Scruggs Primary Care Provider [phone] Encounters Date Type Department Care Team Description 12/01/2024 Documentation [facility] [address] [place] [address] Kimber Fallon, RN Kidney Eval 10/08/2024 Telephone [facility] [address] [place] [address] Kimber Fallon, RN 10/01/2024 Orders Only [facility] [address] [place] [phone] Tito Patricio MD Renovascular hypertension (Primary Dx) 09/23/2024 Telephone [facility] [address] [place] [address] Kimber Fallon, RN 09/19/2024 Telephone [facility] [address] [place] [address] Kimber Fallon, RN from Last 3 Months Allergies Active Allergy Reactions Criticality Noted Date Comments Penicillins Itching,Rash Medications ferrous sulfate 325 mg (65 mg iron) tablet Active SODIUM BICARBONATE ORAL Act jill carvediloL (COREG) 6.25 mg tablet SMARTSI Tablet(s) [...] Info) Description 08/19/2025 1:40 PM EST Follow-Up [facility] Renal Transplant [address] [place] [address] iTto Patricio MD [address] [place] [address] 08/19/2025 2:00 PM EST Social Work [facility] [address] [place] [address] Tito Patricio MD [address] [place] [address] Thomas Freeman Procedures * Due to [place] Swapdom law, this organization might not be sharing negative HIV tests. Procedure Name Priority Date/Time Associated Diagnosis Comments HEPATITIS C ANTIBODY W/REFLEX TO HCV RNA, QUANTITATIVE PCR Routine 09/01/2024 2:46 PM EST Pre-transplant evaluation for kidney transplant Stage 4 chronic kidney disease CBC AUTO DIFFERENTIAL Routine 09/01/2024 2:46 PM EST Pre-transplant evaluation for kidney transplant Stage 4 chronic kidney disease PTH, INTACT (WITHOUT CALCIUM) Routine 09/01/2024 2:46 PM EST Pre-transplant evaluation for kidney transplant Stage 4 chronic kidney disease PHOSPHORUS Routine 09/01/2024 2:46 PM EST Pre-transplant evaluation for kidney transplant Stage 4 chronic kidney disease from Last 3 Months or Most Recently Relevant to Health Maintenance Results * Due to [place] Swapdom law, this organization might not be sharing negative HIV tests. * (ABNORMAL) CBC Auto Differential (09/01/2024 2:46 [...] - 0.20 10*3/uL 09/01/2024 3:19 PM EST [facility] nRBC % 0.0 /100 WBCs 09/01/2024 3:19 PM EST [facility] nRBC # <0.01 <0.01 10*3/uL 09/01/2024 3:19 PM EST [facility] Blood Structure of peripheral vein / Unknown Venipuncture / Unknown 09/01/2024 2:46 PM EST 09/01/2024 3:10 PM EST Tito Patricio MD LAB BLOOD ORDERABLES Final Resu lt [facility] [address] [place] [address], [place] * Hepatitis C Antibody w/Reflex to PCR (09/01/2024 2:46 PM EST) Hepatitis C Antibody NON-REACT JILL NON-REACT JILL 09/02/2024 7:23 AM EST [employer] [facility] Comment: HCV antibody was non-reactive. There is no laboratory evidence of HCV infection. In most cases, no further action is required. However, if recent HCV exposure is suspected, a test for HCV RNA (test code 04631) is suggested. For additional information please refer to http://education.Virtual 3-D Display for Smartphones/faq/KWW33c4 (This link is being provided for informational/ educational purposes only.) Blood Structure of peripheral vein / Unknown Venipuncture / Unknown 09/01/2024 2:46 PM EST 09/01/2024 3:07 PM EST Narrative [facility] 09/02/2024 7:23 AM EST [facility] Received Date: Tito Patricio MD LAB BLOOD ORDERABLES Final Resu lt [facility] [address] [place] [address] [address] Floor, [place] [address], [employer] [address], [place] [address], * (ABNORMAL) Phosphorus (09/01/2024 2:46 PM EST) Pathologist [facility] Phosphorus 8.2(H) 2.5 - 4.5 mg/dL 09/01/2024 3:52 PM EST [employer] Blood Structure of peripheral vein / Unknown Venipuncture / Unknown 09/01/2024 2:46 PM EST 09/01/2024 3:10 PM EST us Tito Patricio MD LAB BLOOD ORDERABLES Final Resu lt [facility] [address] [place] [address], * (ABNORMAL) PTH, Intact (without Calcium) (09/01/2024 2:46 PM EST) Pathologist [facility] Parathyroid Hormone, Intact 1488(H) 16 - 77 pg/mL 09/03/2024 7:22 AM EST [employer] Comment: Interpretive Guide ?Intact PTH ? Calcium [...] 3:10 PM EST Narrative [facility] - 09/03/2024 7:22 AM EST [facility] Received Date: Tito Patricio MD LAB BLOOD ORDERABLES Final Resu lt [facility] [address] [facility] [address] Floor, [place] [address], [place] [phone] [employer] [facility] [address] [facility] [address]rd Floor, [place] [address], from Last 3 Months or Most Recently Relevant to Health Maintenance Insurance [facility] [place] [id number] [facility] Care Teams Tile Ditcher Relationship Specialty Start Date End Date Emanuel Scruggs [address] [place] [id number] PCP - General 03/22/17
--- OUTSIDE RECORDS SUMMARY | 2024-12-10 16:25 | XMS_ITS | Clinical Summary ---
Author Organization [facility] Address [address] [place] [address] Care Team Providers Care Soloist Dancer Name Role Phone Mary Garcia LISA Primary Care Provider [phone] Allergies Active Allergy Reactions Criticality Noted Date [...] in the evening. 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 Encounters Date Type Department Care Team Description 11/24/2024 Orders Only [facility] [address] [place] [address] Tima Salas MD from Last 3 Months Family History Medical History Relation Comments Diabetes [...] Colorectal Cancer Screening: Sigmoidoscopy 2014 Influenza Vaccine (Season Ended) 2025 Procedures Procedure Name Priority Date/Time Associated Diagnosis Comments HD KINETICS Routine 12/03/2024 POST CHEMISTRY Routine 12/03/2024 CHEMISTRY Routine 12/03/2024 HEMATOLOGY Routine 11/24/2024 TRACE ELEMENTS Routine 11/24/2024 THYROIDS Routine 11/24/2024 CHEMISTRY Routine 11/24/2024 IMMUNO CHEMISTRY Routine 11/24/2024 SPECIAL CHEMISTRY Routine 11/24/2024 CHEMISTRY Routine 11/24/2024 from Last 3 Months Results * HD KINETICS (12/03/2024) % Urea Reduction 74 65 - 80 % [facility] 12/03/2024 12/04/2024 9:5 7 AM EDT Narrative Resulting Agency Comment Specimen source: Plasma Tima Salas MD LAB BLOOD ORDERABLES Final Re sult Performing Organization Address [facility] Co de Phone Number [facility] See order comments or contact performing lab Unknown, [place] * POST CHEMISTRY (12/03/2024) BUN Post Dialysis 18 6 - 19 mg/dL [facility] 12/03/2024 12/04/2024 9:5 7 AM EDT Narrative [facility] - 12/04/2024 Unless otherwise specified, test(s) performed at: [facility], [address] [place] [address] HUMAN SERVICE WORKER: Latrell Pollack M.D. For any questions, please call customer service at FREQUENCY:OTHER Resulting Agency Comment Specimen source: Plasma Tima Salas MD LAB BLOOD ORDERABLES Final Re sult [facility] See order comments or contact performing lab Unknown, [place] * (ABNORMAL) [facility] (12/03/2024) Only the most recent of3 resultswithin the time period is included. BUN 68(H) 6 - 19 mg/dL [facility] 12/03/2024 12/04/2024 11: 10 AM EDT Narrative [facility] - 12/04/2024 Unless otherwise specified, test(s) performed at: [facility], [address] [place], [place] [id number] HUMAN SERVICE WORKER: Latrell Pollack M.D. For any questions, please call customer service at FREQUENCY:OTHER Resulting Agency Comment Specimen source: Serum Tima Salas MD LAB BLOOD ORDERABLES Final Re sult Performing Organization Address [facility] Co de Phone Number [facility] See order comments or contact performing lab Unknown, [place] * THYROIDS (11/24/2024) TSH 1.922 0.300 - 3.000 mIU/L [facility] Comment: The reference range of 0.300-3.000 mIU/L is recommended by the [place] Association of Clinical Endocrinologists (AACE). An ESRD population contains about 20% of individuals with TSH of up to 20 mIU/L and normal free T4 consistent with non-thyroidal illness. ESRD patients with true hypothyroidism develop persistent values above 20 mIU/L. 11/24/2024 11/25/2024 8:4 2 AM EDT Narrative [facility] - 11/25/2024 Unless otherwise specified, test(s) performed at: [facility], [address] [place], [place] [id number] HUMAN SERVICE WORKER: Latrell Pollack M.D. For any questions, please call customer service at FREQUENCY:MONTHLY Resulting Agency Comment Specimen source: Serum Tima Salas MD LAB BLOOD ORDERABLES Final Re sult Performing Organization Address [facility] de Phone Number [facility] See order comments or contact performing lab Unknown, [place] * (ABNORMAL) SPECIAL CHEMISTRY (11/24/2024) Pathologist [facility] Vitamin D, 25-OH, Total 28.3(L) 30.0 - 100.0 ng/mL [facility] Comment: Please Note:? Effective July 02, 2023, the methodology for this test has changed to the [facility]. 11/24/2024 11/25/2024 8:4 2 AM EDT Narrative Resulting Agency Comment Specimen source: Serum Tima Salas MD LAB BLOOD BANK TEST ORDERABLE S Final Result [facility] See order comments or contact performing lab Unknown, [place] * IMMUNO CHEMISTRY (11/24/2024) Hep B Surface Ag Negative Negative [facility] Hepatitis B Surface Ab 20 mIU/mL [facility] Comment: The anti-HBs (Hepatitis B surface antibody) is greater than or equal to 10 mIU/mL and implies immunity. The patient has either had an antibody response to HBV vaccination, received a transfusion, or has recovered from HBV infection. For post-vaccination antibody testing guidelines for the general public, refer to MMWR August 25, 2005/Vol.54 (No. 16); -23, and for healthcare workers, refer to MMWR August 22, 2013/Vol.62 (No. 10); -18. Reference Range: <10 mIU/mL ? Non-Immune >=10 mIU/mL ?Immune The magnitude of the measured result above 10 mIU/mL is not indicative of the total amount of antibody present. Hep B Core Total Ab Negative Negative [facility] Comment: Hep B Core Ab, Total appears during the acute infection stage and remains reactive/positive throughout the recovery stage. The above test result was obtained using Siemens Centaur XP chemiluminescent method. Results obtained with different assay methods or kits cannot be used interchangeably. Hepatitis C Antibody Nonreactive Nonreactive [facility] Comment: No HCV antibody detected. The above test result was obtained using Siemens Centaur XP chemiluminescent method. Results obtained with different assay methods or kits cannot be used interchangeably. S/CO Ratio 0.14 0.00 - 0.79 [facility] Comment: s/co ratio ?Interpretation ?Supplemental testing <0.80 ? Nonreactive ? No further testing required. 0.80-0.99 ? Equivocal ? HCV RNA Quantitative Real-Time PCR is recommended. 1.00->11.00 ?? Reactive ?HCV RNA Quantitative Real-Time PCR is recommended to distinguish active from resolved cases. 11/24/2024 11/25/2024 8:4 2 AM EDT Narrative Resulting Agency Comment Specimen source: Serum Tima Salas MD LAB BLOOD ORDERABLES Edited R esult - Final Performing Organization Address [facility] de Phone Number [facility] See order comments or contact performing lab Unknown, [place] * TRACE ELEMENTS (11/24/2024) Aluminum <5 0 - 10 mcg/L [facility] Comment: This test was developed and its performance characteristics determined by [facility]. It has not been cleared or approved by the FDA. The laboratory is regulated under CLIA as qualified to perform high complexity testing. This test is used for clinical purposes. It should not be regarded as investigational or for research. 11/24/2024 11/25/2024 8:2 3 AM EDT Narrative [facility] - 11/25/2024 Unless otherwise specified, test(s) performed at: [facility], [address] [place], [place] [id number] HUMAN SERVICE WORKER: Latrell Pollack M.D. For any questions, please call customer service at FREQUENCY:MONTHLY Resulting Agency Comment Specimen source: Serum Tima Salas MD LAB BLOOD ORDERABLES Final Re sult Performing Organization Address [facility] de Phone Number [facility] See order comments or contact performing lab Unknown, [place] * (ABNORMAL) HEMATOLOGY (11/24/2024) WBC 6.50 4.80 - 10.80 1000/mcL [facility] RBC 2.40(L) 4.20 - 5.40 mill/mcL [facility] Hematocrit 23.1(L) 37.0 - 47.0 % [facility] MCV 96 80 - 100 fl [facility] MCH 29.8 27.0 - 31.0 pg [facility] MCHC 31.0 30.0 - 36.0 g/dL [facility] RDW 15.2(H) 11.5 - 14.5 % [facility] Hemoglobin 7.2(L) 12.0 - 16.0 g/dL [facility] Hemoglobin x 3 21.6(L) 36.0 - 48.0 % [facility] Platelets 115(L) 130 - 400 1000/mcL [facility] 11/24/2024 11/25/2024 9:0 0 AM EDT Narrative [facility] - 11/25/2024 Unless otherwise specified, test(s) performed at: [facility], [address] [place], [place] [id number] HUMAN SERVICE WORKER: Latrell Pollack M.D. For any questions, please call customer service at FREQUENCY:MONTHLY Resulting Agency Comment Specimen source: Blood Tima Salas MD LAB BLOOD ORDERABLES Final Re sult [facility] See order comments or contact performing lab [facility], [place] from Last 3 Months Insurance [place] [id number] Care Teams Soloist Dancer Relationship Specialty Start Date End Date Mary Garcia FNP [address] [place] [phone] PCP - General 06/19/22
--- OUTSIDE RECORDS SUMMARY | 2024-12-10 16:25 | XMS_ITS ---
Author Organization [facility] Address [address] [place] [address] Care Team Providers Care Environmental Emergencies Planner Name Role Phone Emanuel Scruggs Primary Care Provider [phone] Transplant Episode Kidney Candidate [facility] ([place], [place]) - [facility] Evaluation began on 09/01/2024 Marked as Active on 09/01/2024 Kidney CoordinatorKimber Fallon RN Fax: N/A Email: N/A Scores Score Value Updated Exceptions/Reas ons CPRA Not available EPTS (Calc) 27 12/10/2024 [place] Organ Diagnosis Organ Primary Contributory Kidney Hypertensive Nephrosclerosis Care Team Name Role Phone Fax Email Kimber Fallon RN Kidney Coordinator [phone] N/A N/A Danis Betancur Referring Physician [phone] N/A Events Pre-Transplant Referred: 07/07/2024 Evaluation began: 09/01/2024 Dialysis History Dialysis History Start End Type Comments Center In-center Hemodialysis [facility] Dialysis [facility] Information Center Phone Fax Address [facility] [phone] [address] [facility] [address]
--- OUTSIDE RECORDS SUMMARY | 2024-12-10 16:25 | XMS_ITS | Clinical Summary ---
Author Organization [facility] Address [address] [place] [address] Care Team Providers Care Manager Mountain Name Role Phone Emanuel Scruggs Primary Care Provider [phone] Allergies Active Allergy Reactions Criticality Noted Date [...] Type Department Care Team Description 12/01/2024 Documentation [facility] [address] [place] [address] Kimber Fallon, RN Kidney Eval 10/08/2024 Telephone [facility] [address] [place] [address] Kimber Fallon RN 10/01/2024 Orders Only [facility] [address] [place] [address] Tito Patricio MD Renovascular hypertension (Primary Dx) 09/23/2024 Telephone [facility] [address] [place] [address] Kimber Fallon, RN 09/19/2024 Telephone [facility] [address] [place] [address] Kimber Fallon, RN from Last 3 Months Family History [...] Info) Description 08/19/2025 1:40 PM EST Follow-Up [facility] [address] [place] [address] Tito Patricio MD [address] [place] [address] 08/19/2025 2:00 PM EST Social Work [facility] [address] [place] [address] Tito Patricio MD [address] [place] [address] Thomsa Freeman Health Maintenance Due Date Last Done Comments [...] Vaccines (1 of 2) 2015 COVID-19 Vaccine ( - season) 2024 Alcohol/Substance Use Screening 09/03/2024 Depression Screening and Follow-Up 09/03/2024 Social Drivers of Health Annual Screening 09/03/2024 Influenza Vaccine (Season Ended) 2025 Hemoglobin 09/01/2025 09/01/2024 PTH 09/01/2025 09/01/2024 Phosphorus 09/01/2025 09/01/2024 RSV Vaccine (60+ years old a nd patients) (1 - 1-dose 75+ series) 2040 CKD: Referral to Nephrology Completed 09/01/2024 HIV Screening Completed 09/01/2024 Hepatitis C Screening Completed 09/01/2024 Procedures * Due to [place] state law, this organization might not be [...] to Health Maintenance Results * Due to [place] state law, this organization might not be [...] % 61.9 % 09/01/2024 3:19 PM EST [email or web address] Immature Grans % 0.3 0.0 - 0.9 % 09/01/2024 3:19 PM EST [email or web address] Lymphocyte % 29.6 % 09/01/2024 3:19 PM EST [email or web address] Monocyte % 5.4 % 09/01/2024 3:19 PM EST [email or web address] Eosinophil % 2.3 % 09/01/2024 3:19 PM EST [email or web address] Basophil % 0.5 % 09/01/2024 3:19 PM EST [facility] Neutrophil # 3.81 1.50 - 7.80 10*3/uL 09/01/2024 3:19 PM EST [email or web address] Immature Grans # <0.03 <=0.03 10*3/uL 09/01/2024 3:19 PM EST [email or web address] Lymphocyte # 1.80 0.85 - 3.90 10*3/uL 09/01/2024 3:19 PM EST [facility] Monocyte # 0.30 0.20 - 0.95 10*3/uL 09/01/2024 3:19 PM EST [email or web address] Eosinophil # 0.10 0.02 - 0.50 10*3/uL 09/01/2024 3:19 PM EST [email or web address] Basophil # <0.03 0.00 - 0.20 10*3/uL 09/01/2024 3:19 PM EST [facility] nRBC % 0.0 /100 WBCs 09/01/2024 3:19 PM EST [facility] nRBC # <0.01 <0.01 10*3/uL 09/01/2024 3:19 PM EST [facility] Blood Structure of peripheral vein / Unknown Venipuncture / Unknown 09/01/2024 2:46 PM EST 09/01/2024 3:10 PM EST us Tito Patricio MD LAB BLOOD ORDERABLES Final Resu lt [facility] [address] [place] [address], * Hepatitis C Antibody w/Reflex to PCR (09/01/2024 2:46 PM EST) Hepatitis C Antibody NON-REACT JILL NON-REACT JILL 09/02/2024 7:23 AM EST Z2 Comment: HCV antibody was non-reactive. There is no laboratory evidence of HCV infection. In most cases, no further action is required. However, if recent HCV exposure is suspected, a test for HCV RNA (test code 66591) is suggested. For additional information please refer to http://education.AisleFinder/faq/HOL33m8 (This link is being provided for informational/ educational purposes only.) Blood Structure of peripheral vein / Unknown Venipuncture / Unknown 09/01/2024 2:46 PM EST 09/01/2024 3:07 PM EST Narrative [facility] [place] - 09/02/2024 7:23 AM EST [facility] Received Date: us Tito Patricio MD LAB BLOOD ORDERABLES Final Resu lt Performing Organization Address City/[facility]/ZIP Co de Phone Number DEJAN GALVEZ [address], [place] [address], [place] [phone] [employer] [facility] [address], [place] [address], [place] [phone] * (ABNORMAL) Phosphorus (09/01/2024 2:46 PM EST) Phosphorus 8.2(H) 2.5 - 4.5 mg/dL 09/01/2024 3:52 PM EST [facility] Blood Structure of peripheral vein / Unknown Venipuncture / Unknown 09/01/2024 2:46 PM EST 09/01/2024 3:10 PM EST Tito Patricio MD LAB BLOOD ORDERABLES Final Resu lt Performing Organization Address [facility] Phone Number [facility] [employer] [facility] [address] [place] [address], * (ABNORMAL) PTH, Intact (without Calcium) (09/01/2024 2:46 PM EST) Parathyroid Hormone, Intact 1488(H) 16 - 77 pg/mL 09/03/2024 7:22 AM EST Z2 Comment: Interpretive Guide ?Intact PTH ? Calcium [...] ORDERABLES Final Resu lt DEJAN GALVEZ [address], [place] [address], [place] [phone] [facility] [address], [address] [facility] [place] [address], [place] [phone] from Last 3 Months or Most Recently Relevant to Health Maintenance Insurance [facility] Care Teams Manager Mountain Relationship Specialty Start Date End Date Emanuel Scruggs [address] [place] [phone] PCP - General 03/22/17
[2024-12-10 16:46] VITALS: BP 126/71; PULSE 87; RESP 18; TEMP 36.6; O2SAT 100
== END 2024-12-10 16:52 | disposition home or self-care (01) ==
PROVIDERS: Emergency Provider Emergency Medicine; PCP Internal Medicine
DX: I13.2 Hypertensive heart and chronic kidney disease with heart failure and with stage 5 chronic kidney disease, or end stage renal disease (principal); I50.9 Heart failure, unspecified; N18.6 End stage renal disease; N17.9 Acute kidney failure, unspecified; D63.1 Anemia in chronic kidney disease; Z99.2 Dependence on renal dialysis; N25.81 Secondary hyperparathyroidism of renal origin; Z87.891 Personal history of nicotine dependence
CPT/HCPCS: 36415; 80053; 83735; 85025; 86850; 86900; 86901; 86902; 86920; 86922; 96365; 99284; J0131

== ENCOUNTER → 2025-01-01 | Outpatient (BNV) | payer OTHER, SELFPAY | PROVIDERS: PCP Internal Medicine; Visit Provider Internal Medicine Nephrology | DX: N18.6 End stage renal disease (principal) | CPT/HCPCS: 90962 ==

== ENCOUNTER 2025-01-07 10:40 | Emergency (ER) | payer OTHER, SELFPAY ==
[2025-01-07] VITALS (8 sets, daily range): BP systolic 115–153; BP diastolic 55–83; PULSE 73–95; RESP 13–20; TEMP 36.6–36.8; O2SAT 98–100; BMI 28.6
--- NOTE | 2025-01-07 11:11 | ED.GENADULT ---
HPI - General Adult General Chief complaint: Recheck/Abnormal Lab/Rx Stated complaint: Low Blood Count Time Seen by Provider: 01/07/25 11:57 Source: patient Mode of arrival: ambulatory Limitations: no limitations History of Present Illness ED Provider: DR. 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 Patient had similar episodes in the past, patient stated that she is not going to stay in the hospital she wants to spend the mother day to be with her family. Related Data Home Medications ?Medication ?Instructions ?Recorded ?Confirmed sevelamer HCl 800 mg tablet 800 mg PO TID 09/14/24 12/18/24 carvedilol 6.25 mg tablet 6.25 mg PO BID 11/15/24 12/18/24 Previous Rx's ?Medication ?Instructions ?Recorded blood pressure monitor #1 11/10/23 sitz bath #1 11/13/23 Grab bar #1 11/22/23 Shower Chair #1 11/22/23 bed rail #1 11/22/23 hand held shower #1 11/22/23 pill box twice daily #1 ea 11/22/23 ferrous sulfate 325 mg (65 mg 325 mg PO BID #180 tabs 07/04/24 iron) tablet,delayed release atorvastatin 80 mg tablet 80 mg PO BEDTIME 90 days #90 tabs 09/11/24 sitz bath #1 09/11/24 simethicone 180 mg capsule (Gas 180 mg PO BID PRN abdominal 11/04/24 Relief (simethicone)) distention 30 days #60 caps cocoa butter-zinc oxide 76 %-10 % 1 supp SC QID PRN rectal bleed #24 11/20/24 rectal suppository (Calmol-4) ea omeprazole 20 mg capsule,delayed 20 mg PO DAILY@0630 #90 caps 11/20/24 release recliner #1 ea 11/24/24 hydrocortisone 2.5 % topical 1 appl topical BID #28.35 grams 11/27/24 ointment sodium bicarbonate 650 mg tablet 1,300 mg (2 x 650 mg) PO TID #540 12/30/24 tabs Allergies Allergy/AdvReac Type Severity Reaction Status Date / Time Penicillins Allergy Intermediate RASH Verified 01/07/25 11:16 Review of Systems Review of Systems: All other systems are reviewed and are negative Constitutional: Reports as per HPI and Reports no additional constitutional complaints Eyes: Reports as per HPI and Reports no additional eye complaints Reports system reviewed and no additional complaints, except as documented Cardiovascular: Reports as per HPI and Reports no additional cardiovascular complaints Respiratory: Reports as per HPI and Reports no additional respiratory complaints Gastrointestinal: Reports as per HPI and Reports no additional gastrointestinal complaints Genitourinary: Reports no additional female genitourinary complaints Musculoskeletal: Reports no additional musculoskeletal complaints Skin/Breast: Reports system reviewed and no additional complaints, except as docu Psychiatric: Reports no additional psychiatric complaints Endocrine: Reports no additional endocrine complaints Hematologic/Lymphatic: Reports no additional hematologic/lymphatic complaints Allergic/Immunologic: Reports no additional allergic/immunologic complaints Reports system reviewed and no additional complaints, except as documented and Reports Abnormal speech present [facility] Past Medical History Medical History Back pain Asthma History of blood transfusion NSTEMI (non-ST elevated myocardial infarction) Atrial fibrillation ESRD (end stage renal disease) on dialysis Acute on chronic kidney failure Secondary hyperparathyroidism (of renal origin) Anemia in chronic kidney disease (CKD) Chronic systolic (congestive) heart failure Cardiomyopathy CKD (chronic kidney disease) stage 5, GFR less than 15 ml/min Essential hypertension Normocytic anemia Surgical History History of esophagogastroduodenoscopy (EGD) Hx of colonoscopy History of surgery Status post dilation and curettage History of abdominal surgery History of extraction of renal calculus History of tubal ligation Family History Family History Father Throat cancer Mother Hypertension Daughter In good health Daughter In good health Sister In good health Family/Other Breast cancer Social History Social History Household Members: None Housing: Other Housing Other:: studio Are you a primary healthcare liaison to a significant other at home: No Do you presently have visiting nurse or other home services: Yes ([employer]) Alcohol intake: never Comment: Pt declining bed alarm Patient Tobacco Use Status: Former Tobacco user Tobacco use type: Cigarette Years Smoked: 30 +/- e-Cigarette/Vaping Use: Never Used Second Hand Smoke Exposure: No Advance Directives: Yes Advance Directives on File: Yes Advance Directives Date on File: 11/21/23 service: No Current occupational status: unemployed Cognitive needs: No Hearing needs: No Vision needs: No Physical Exam ED Vital Signs: Vital Signs - 24 hr 01/07/25 11:12 Temperature 98.1 F Pulse Rate 95 Respiratory Rate 18 Blood Pressure 145/76 H Pulse Oximetry 99 Oxygen Delivery Method Room Air BMI result Body Mass Index 28.6 Vital signs have been reviewed and appear to be correct. Blood pressure elevated. Heart rate normal. Respiratory rate normal. Temperature normal. Oxygen saturation normal. Appearance: Alert. Oriented X3. No acute distress. Head: Normal external exam. Normocephalic. Atraumatic. No Hackett signs noted. No raccoon eyes noted Eyes: PERRLA. EOMI. Conjunctiva and sclera normal. Eyelids normal. ENT: TM's Normal. Pharynx normal. Uvula midline. Moist mucous membranes. No trismus noted. No drooling noted. No muffled voice noted. Neck: Normal inspection. Neck supple. FROM. No adenopathy. Thyroid Normal. No meningeal signs. No neck mass noted. CVS: Normal heart rate and rhythm. Heart sound normal. No murmurs noted. Pulses normal throughout. Respiratory: No respiratory distress. Painless inspiration. Breath sounds normal. No wheezes/rales/rhonchi noted. Chest nontender. No accessory muscle usage noted or decreased air movement noted. Abdomen: Soft and nontender. Bowel sounds normal in all 4 quadrants. No distention noted. No organomegaly noted. No visible injury noted. Rectal exam: No palpable external or internal hemorrhoid, bright red blood per rectum, guaiac positive for blood. Back: No CVA tenderness. Full range of motion noted. Skin: Skin warm and dry. Normal skin color. Normal skin turgor. No rashes/lesions/lacerations noted. Extremities: No lower extremity edema. Extremities exhibit normal range of motion. Extremities nontender. Neuro: Oriented X 3. Cranial nerve exam: II-XII are grossly intact No motor deficit. No sensory deficit. Reflexes normal. Course Course Course Narrative: This is a Rapid Medical Exam performed in triage by Pallavi Kwok PA-C. Full HPI, ROS and PE to be performed by primary ED provider. 59 yo F w/PMHx NSTEMI, asthma, HTN, anemia, hyperparathyroid, Afib, CKD on HD (M/W/F) had HD today (almost full session) presenting to the ED c/o low H/H 5.7 on labs at [facility]. Admits to bloody stool this AM. Denies AC use. +MARTINEZ. denies lightheadedness/dizziness PE: VSS, npontoxic appearing Plan: Labs, EKG Reevaluation(s) Reevaluation #1: S/p anemia with bright red blood per rectum, patient fully understand the risk of leaving against medical advice including but not limited to , heavy bleeding. Patient was instructed to follow-up with her PCP, and seek immediate medical attention if GI bleed is worsening. Time: 13:14 Medical Decision Making Differential Diagnosis Differential Diagnoses: The differential diagnosis associated with the presentation includes (Severe anemia, electrolyte derangement, GI bleeding, blood transfusion.) Admission/Observation Consideration of admission/observation: Escalation of care including admission/observation considered Lab Data MDM Lab Attestation statement: I reviewed the patient's lab results. 01/07/25 11:23 01/07/25 11:23 Labs: Lab Results 01/07/25 01/07/25 Range/Units 11:23 11:55 WBC 6.3 (4.8-10.8) X10*3/uL RBC 2.11 L (4.20-5.50) X10*6/uL Hgb 6.4 L* (12.0-16.0) g/dl Hct 19.7 L* (37.0-47.0) % MCV 93.4 (80.0-98.0) fL MCH 30.3 (27.0-33.0) pg MCHC 32.5 (31.0-35.0) g/dl RDW 14.0 (11.0-16.0) % Plt Count 145 L (160-400) X10*3/uL MPV 10.1 (9.4-12.3) fL Immature Gran % (Auto) 0.3 (0.0-0.4) % Neut % (Auto) 66.7 (45-73) % Lymph % (Auto) 24.0 (20-40) % [place] % (Auto) 7.2 (2-11) % Eos % (Auto) 1.3 (0-4) % Baso % (Auto) 0.5 (0-2) % Lymph # (Auto) 1.5 (1.2-4.9) X10*3/uL [place] # (Auto) 0.5 (0.1-1.2) X10*3/uL Eos # (Auto) 0.1 (0.0-0.4) X10*3/uL Baso # (Auto) 0.0 (0.0-0.2) X10*3/uL Abs Immat Gran (auto) 0.02 (0.00-0.03) X10*3/uL Absolute Neuts (auto) 4.2 (2.0-8.3) x10*3/uL Absolute Nucleated RBC 0.000 (0.0-0.012) X10*3/uL Nucleated RBC % (auto) 0.0 (0.0-0.2) /100WBC PT 11.2 (10.9-12.4) SEC INR 1.0 (0.9-1.1) Sodium 143 (135-145) mmol/L Potassium 3.2 L (3.3-5.1) mmol/L Chloride 103 (96-108) mmol/L Carbon Dioxide 31 H (22-29) mmol/L Anion Gap 12 (12-20) BUN 25 H (9-16) mg/dL Creatinine 3.35 H (0.5-1.4) mg/dL Estim Creat Clear Calc 18.6 Estimated GFR 14 Random Glucose 123 H (60-115) mg/dL Calcium 8.6 (8.4-10.2) mg/dL Magnesium 1.8 (1.6-2.6) mg/dL Total Bilirubin 0.3 (0.0-1.0) mg/dL Direct Bilirubin 0.1 (0.0-0.5) mg/dL AST 15 (5-31) U/L ALT 9 (0-31) U/L Alkaline Phosphatase 92 (39-117) U/L Total Protein 6.9 (6.5-8.0) g/dL Albumin 3.7 (3.5-5.0) g/dL Blood Type A Positive Antibody Screen NEGATIVE Crossmatch (AHG) See Detail Blood Bank Comment Technical Discharge Plan Discharge Clinical Impression: GI bleed, Anemia Patient Disposition: Left Against Medical Advice Instructions: Gastrointestinal Bleeding (ED) Additional Instructions: Seek immediate medical attention if you have chest pain, shortness of breath, becoming dizzy, loss of consciousness, worsening of rectal bleeding. Prescriptions: No Action ([facility] [place] blood pressure monitor Kit See Rx Instructions .Route Qty: 1 0RF Rx Instructions: As directed ferrous sulfate 325 mg (65 mg iron) tablet,delayed release (DR/EC) 325 mg PO BID Qty: 180 1RF ([facility] [place] recliner See Rx Instructions .Route .MEDSUPPLY Qty: 1 0RF Rx Instructions: As directed sodium bicarbonate 650 mg tablet 1,300 mg PO TID Qty: 540 3RF atorvastatin 80 mg tablet 80 mg PO BEDTIME 90 Days Qty: 90 0RF ([facility] [place] sitz bath Kit See Rx Instructions .Route Qty: 1 0RF Rx Instructions: As directed ([facility] [place] sitz bath Kit See Rx Instructions .Route Qty: 1 0RF Rx Instructions: As directed sevelamer HCl 800 mg tablet 800 mg PO TID Rx Instructions: must administer with a meal/food carvedilol 6.25 mg tablet 6.25 mg PO BID omeprazole 20 mg Capsule,Delayed Release(Dr/Ec) 20 mg PO DAILY@0630 Qty: 90 0RF Calmol-4 76-10 % Suppository 1 supp SC QID PRN (Reason: rectal bleed) Qty: 24 0RF ([facility] [place] bed rail See Rx Instructions .Route .MEDSUPPLY Qty: 1 0RF Rx Instructions: As directed ([facility] [place] hand held shower See Rx Instructions .Route .MEDSUPPLY Qty: 1 0RF Rx Instructions: As directed ([facility] [place] Grab bar Misc See Rx Instructions .Route Qty: 1 0RF Rx Instructions: As directed ([facility] [place]) pill box twice daily See Rx Instructions .Route .MEDSUPPLY Qty: 1 0RF Rx Instructions: As directed ([facility] [place]) Shower Chair Misc See Rx Instructions .Route Qty: 1 0RF Rx Instructions: with back hydrocortisone 2.5 % ointment 1 appl topical BID Qty: 28.35 1RF simethicone [Gas Relief (simethicone)] 180 mg capsule 180 mg PO BID PRN (Reason: abdominal distention) 30 Days Qty: 60 0RF Referrals: Britt Chavez MD [Primary Care Provider] - Miranda Singh MD [Physician] - Stand Alone Forms: Against Medical Advice Print Language: Turkmen
--- NOTE | 2025-01-07 11:15 | ECG_ITS ---
Test Reason : anemia Blood Pressure : */* mmHG Vent. Rate : 86 BPM Atrial Rate : 86 BPM P-R Int : 114 ms QRS Dur : 86 ms QT Int : 414 ms P-R-T Axes : 28 9 123 degrees QTcB Int : 495 ms Normal sinus rhythm Nonspecific ST and T wave abnormality Abnormal ECG When compared with ECG of 14-Nov-2024 22:04, No significant change was found Referred By: Pallavi Kwok Electronically Signed By: HEAVEN ALVAREZ
[2025-01-07 11:29] LABS: MANUAL DIFF FLAG NO
[2025-01-07 11:36] LABS: Basophils Percent Auto 0.5 % (0-2); Eosinophils Absolute Auto 0.1 X10*3/uL (0.0-0.4); Eosinophils Percent Auto 1.3 % (0-4); Imm Gran Abs Auto 0.02 X10*3/uL (0.00-0.03); Imm Gran Pct Auto 0.3 % (0.0-0.4); Lymphocytes Absolute Auto 1.5 X10*3/uL (1.2-4.9); Mean Corpuscular HGB Conc 32.5 g/dl (31.0-35.0); Mean Corpuscular Hemoglobin 30.3 pg (27.0-33.0); Mean Corpuscular Volume 93.4 fL (80.0-98.0); Mean Platelet Volume 10.1 fL (9.4-12.3); Monocytes Absolute Auto 0.5 X10*3/uL (0.1-1.2); Monocytes Percent Auto 7.2 % (2-11); Neutrophils Absolute Auto 4.2 x10*3/uL (2.0-8.3); Neutrophils Percent Auto 66.7 % (45-73); Platelet Count 145 X10*3/uL (160-400); Red Blood Count 2.11 X10*6/uL (4.20-5.50); White Blood Count 6.3 X10*3/uL (4.8-10.8)
[2025-01-07 11:41] LABS: Hemoglobin 6.4 g/dl (12.0-16.0)
[2025-01-07 11:42] LABS: Hematocrit 19.7 % (37.0-47.0)
[2025-01-07 11:45] LABS: Alanine Aminotransferase 9 U/L (0-31); Albumin Level 3.7 g/dL (3.5-5.0); Alkaline Phosphatase 92 U/L (39-117); Anion Gap 12 (12-20); Aspartate Amino Transferase 15 U/L (5-31); Bilirubin Direct 0.1 mg/dL (0.0-0.5); Bilirubin Total 0.3 mg/dL (0.0-1.0); Blood Urea Nitrogen 25 mg/dL (9-16); Calcium 8.6 mg/dL (8.4-10.2); Carbon Dioxide 31 mmol/L (22-29); Chloride 103 mmol/L (96-108); Creatinine Clr Calc Pharmacy 18.6; Estimated Glomerular Filt Rate 14; Glucose Random 123 mg/dL (60-115); Magnesium 1.8 mg/dL (1.6-2.6); Potassium 3.2 mmol/L (3.3-5.1); Sodium 143 mmol/L (135-145); Total Protein 6.9 g/dL (6.5-8.0)
[2025-01-07 11:56] LABS: Prothrombin Time 11.2 SEC (10.9-12.4)
--- NOTE | 2025-01-07 12:18 | PC.NURSE ---
patient discussion with this RN and provider and staff medical research scientist on need for transfusion and recommendations for diagnostics and admission. patient only would like transfusion and no further interventions. MD aware and explained risk of no further follow up on rectal bleeding. Patient acknowledges understanding and declines further stay.
--- OUTSIDE RECORDS SUMMARY | 2025-01-07 13:09 | XMS_ITS | Referral Summary ---
Author Organization [facility] Address [address] [place] [address] Care Team Providers Care Export Packer Name Role Phone Emanuel Scruggs Primary Care Provider [phone] Encounters Date Type Department Care Team Description 01/06/2025 Orders Only [facility] Transplant Department [address] [place] [address] Kimber Fallon, RN End stage renal disease (HCC) (Primary Dx); Pre-transplant evaluation for kidney transplant 12/30/2024 Orders Only [facility] Transplant Department [address] [place] [address] Tito Patricio MD End stage renal disease (HCC) (Primary Dx) 12/30/2024 Orders Only [facility] Transplant Department [address] [place] [address] Tito Patricio MD 12/25/2024 Telephone [facility] Transplant Department [address] [place] [address] Kimber Fallon RN 12/24/2024 Telephone [facility] Transplant Department [address] [place] [address] Kimber Fallon, RN 12/24/2024 Telephone [facility] Transplant Department [address] [place] [address] Kimber Fallon, RN 12/01/2024 Documentation [facility] Transplant Department [address] [place] [address] Kimber Fallon RN Kidney Eval 11/15/2024 Orders Only [facility] - External Imaging [address] [place] [address] Radiology, External from Last 3 Months Allergies Active Allergy [...] Info) Description 08/19/2025 1:40 PM EST [facility] [address] [place] [address] Tito Patricio MD [address] [place] [address] 08/19/2025 2:00 PM EST Social Work [facility] Renal Transplant [address] [place] [address] Tito Patricio MD [address] [place] [address] Thomas Freeman Procedures * Due to [place] [facility] [facility] law, this organization might not be sharing [...] to Health Maintenance Results * Due to [place] [employer] law, this organization might not be sharing negative HIV tests. * (ABNORMAL) CBC Auto Differential (09/01/2024 2:46 PM EST) WBC 6.2 3.8 - 10.8 10*3/uL 09/01/2024 3:19 PM EST [facility] RBC 2.28(L) 3.80 - 5.10 10*6/uL 09/01/2024 3:19 PM EST [employer] [facility] [employer] Hemoglobin 6.6(LL) 11.7 - [...] <0.03 <=0.03 10*3/uL 09/01/2024 3:19 PM EST [facility] [facility] CL[facility] LABORATORY Lymphocyte # 1.80 0.85 - 3.90 10*3/uL 09/01/2024 3:19 PM EST [facility] Monocyte # 0.30 0.20 - 0.95 10*3/uL 09/01/2024 3:19 PM EST [facility] Eosinophil # 0.10 0.02 - 0.50 10*3/uL 09/01/2024 3:19 PM EST [facility] [facility] Basophil # <0.03 0.00 - 0.20 10*3/uL 09/01/2024 3:19 PM EST [facility] [employer] [facility] CL[facility] LABOR[facility] nRBC % 0.0 /100 WBCs 09/01/2024 3:19 PM EST [facility] [facility] nRBC # <0.01 <0.01 10*3/uL 09/01/2024 3:19 PM EST [facility] CL[facility]ICAL PATHOLOGY LABORATORY Blood Structure of peripheral vein / Unknown Venipuncture / Unknown 09/01/2024 2:46 PM EST 09/01/2024 3:10 PM EST us Tito Patricio MD LAB BLOOD ORDERABLES Final Resu lt [facility] [employer] [facility] CLINICAL PATHOLOGY LABORATORY [address] [place] [address], * Hepatitis C Antibody w/Reflex to PCR (09/01/2024 2:46 PM EST) Hepatitis C Antibody NON-REACT JILL NON-REACT JILL 09/02/2024 7:23 [address] [facility] Comment: HCV antibody was non-reactive. There is no laboratory evidence of HCV infection. In most cases, no further action is required. However, if recent HCV exposure is suspected, a test for HCV RNA (test code 86825) is suggested. For additional information please refer to http://education.Gamelet/faq/JRV85r5 (This link is being provided for informational/ educational purposes only.) Blood Structure of peripheral vein / Unknown Venipuncture / Unknown 09/01/2024 2:46 PM EST 09/01/2024 3:07 PM EST Narrative [facility] [place] - 09/02/2024 7:23 AM EST [facility] Received Date: us Tito Patricio MD LAB BLOOD ORDERABLES Final Resu lt Performing Organization Address City/[facility]/ZIP Co de Phone Number [employer] [employer] [place] [address] [facility] [address] [facility], [place] [address], [place] [phone] [employer] [address], [place] [address], [place] [phone] * (ABNORMAL) Phosphorus (09/01/2024 2:46 PM EST) Phosphorus 8.2(H) 2.5 - 4.5 mg/dL 09/01/2024 3:52 PM EST [facility] CL[facility] PATHOLOG[facility] LAB[facility] Blood Structure of peripheral vein / Unknown Venipuncture / Unknown 09/01/2024 2:46 PM EST 09/01/2024 3:10 PM EST us Tito Patricio MD LAB BLOOD ORDERABLES Final Resu lt Performing Organization Address [facility]/ZIP Co de Phone Number [facility] CLINICAL PATHOLOGY LABORATORY [address] [place] [address], * (ABNORMAL) PTH, Intact (without Calcium) (09/01/2024 2:46 PM EST) Parathyroid Hormone, Intact 1488(H) 16 - 77 pg/mL 09/03/2024 7:22 AM EST [facility] Comment: Interpretive Guide ?Intact PTH ? Calcium [...] EST 09/01/2024 3:10 PM EST Narrative [facility] [place] - 09/03/2024 7:22 AM EST [facility] Received Date: Tito Patricio MD LAB BLOOD ORDERABLES Final Resu lt [facility] [place] [address] [facility] [address], [place] [address], [employer] [facility] [address] [facility] 3rd Floor, [place] [address], [place] [phone] from Last 3 Months or Most Recently Relevant to Health Maintenance Insurance [facility] Care Teams Export Packer Relationship Specialty Start Date End Date Emanuel Scruggs [address] [place] [address] PCP - General 03/22/17
--- OUTSIDE RECORDS SUMMARY | 2025-01-07 13:09 | XMS_ITS | Encounter Summary ---
Author Organization [facility] Address [address] [place] [address] Care Team Providers Care Furnace Process Supervisor Name Role Phone Emanuel Scruggs Primary Care Provider [phone] Encounter Details Date Type Department Care Team (Late st Contact Info) Description 01/06/2025 Orders Only [facility] Transplant Department [address] [place] [address] Kimber Fallon RN [address] [place] [address] End stage renal disease (HCC) (Primary Dx); Pre-transplant evaluation for kidney transplant Social History Tobacco Use Types Packs/Day Years Used Date Smoking Tobacco: Former Smokeless Tobacco: Never Comments:: Comments Unknown Sex and Gender Information Value Date Recorded Sex Assigned at Not on file Legal Sex Female 7:19 PM EDT Gender Identity Not on file Sexual Orientation Not on file documented as of this encounter Plan of Treatment Upcoming Encounters Date Type Department Care Team (Late st Contact Info) Description 08/19/2025 1:40 PM EST Follow-Up [facility] Renal Transplant [address] [place] [address] Tito Patricio MD [address] [place] [address] 08/19/2025 2:00 PM EST Social Work [facility] Renal Transplant [address] [place] [address] Tito Patricio MD [address] [place] [address] Thomas Freeman Scheduled Orders Name Type Priority Associated Diagnoses Orde r Schedule ABO/Rh Blood Type Lab Routine End stage renal disease (HCC) Pre-transplant evaluation for kidney transplant Expected: 01/06/2025, Expires: 01/06/2026 documented as of this encounter Visit Diagnoses Diagnosis End stage renal disease (HCC)- Primary End stage renal disease Pre-transplant evaluation for kidney transplant documented in this encounter Care Teams Furnace Process Supervisor Relationship Specialty Start Date End Date Emanuel Scruggs [address] [place] [address] PCP - General 03/22/17 documented as of this encounter
--- OUTSIDE RECORDS SUMMARY | 2025-01-07 13:09 | XMS_ITS | Clinical Summary ---
Author Organization [facility] Address [address] [place] [address] Care Team Providers Care Securities Attorney Name Role Phone Mary Garcia LISA Primary Care Provider [phone] Allergies Active Allergy Reactions Criticality Noted Date [...] in the evening. Active ergocalciferol 1.25 MG (42308 UT) capsule Take 1 capsule by mouth [...] Only [facility] [address] [place] [address] Tima Salas MD from Last 3 Months [...] Last Done Comments Breast Cancer Screening 1965 Hepatitis B Vaccine (1 of 3 - 19+ 3-dose series) 06/08 Pneumococcal Vaccine: 50+ Years (1 of 2 - PCV) 984 Colorectal Cancer Screening: Annual FOBT 2014 Colorectal Cancer Screening: Colonoscopy 2014 Colorectal Cancer Screening: Sigmoidoscopy 2014 Influenza Vaccine (Season Ended) 2025 Procedures Procedure Name Priority Date/Time Associated Diagnosis Comments THYROIDS Routine 12/19/2024 IMMUNO CHEMISTRY Routine 12/19/2024 CHEMISTRY Routine 12/19/2024 HEMATOLOGY Routine 12/19/2024 CHEMISTRY Routine 12/19/2024 HD KINETICS Routine 12/03/2024 POST CHEMISTRY Routine 12/03/2024 CHEMISTRY Routine 12/03/2024 HEMATOLOGY Routine 11/24/2024 TRACE ELEMENTS Routine 11/24/2024 THYROIDS Routine 11/24/2024 CHEMISTRY Routine 11/24/2024 IMMUNO CHEMISTRY Routine 11/24/2024 SPECIAL CHEMISTRY Routine 11/24/2024 CHEMISTRY Routine 11/24/2024 from Last 3 Months Results * THYROIDS (12/19/2024) Only the most recent of2 resultswithin the time period is included. TSH 1.481 0.300 - 3.000 mIU/L [facility] Comment: The reference range of 0.300-3.000 mIU/L is recommended by the [place] Association of Clinical Endocrinologists (AACE). An ESRD population contains about 20% of individuals with TSH of up to 20 mIU/L and normal free T4 consistent with non-thyroidal illness. ESRD patients with true hypothyroidism develop persistent values above 20 mIU/L. 12/19/2024 12/23/2024 8:4 9 AM EDT Narrative [facility] - 12/23/2024 Unless otherwise specified, test(s) performed at: [facility], [address] [place], [place] [id number] BEHAVIORAL PSYCHOLOGIST: Latrell Pollack M.D. For any questions, please call customer service at FREQUENCY:MONTHLY Resulting Agency Comment Specimen source: Serum us Tima Salas MD LAB BLOOD ORDERABLES Final Re sult [facility] See order comments or contact performing lab Unknown, [place] * IMMUNO CHEMISTRY (12/19/2024) Only the most recent of2 resultswithin the time period is included. Hep B Surface Ag Negative Negative [facility] 12/19/2024 12/23/2024 8:4 9 AM EDT Narrative Resulting Agency Comment Specimen source: Serum Tima Salas MD LAB BLOOD ORDERABLES Final Re sult Performing Organization Address [facility] de Phone Number [facility] See order comments or contact performing lab Unknown, [place] * (ABNORMAL) HEMATOLOGY (12/19/2024) Only the most recent of2 resultswithin the time period is included. Hemoglobin 7.3(L) 12.0 - 16.0 g/dL [facility] Hemoglobin x 3 21.9(L) 36.0 - 48.0 % [facility] 12/19/2024 12/23/2024 9:3 9 AM EDT Narrative [facility] - 12/23/2024 Unless otherwise specified, test(s) performed at: [facility], [address] [place] [address] BEHAVIORAL PSYCHOLOGIST: Latrell Pollack M.D. For any questions, please call customer service at FREQUENCY:MONTHLY Resulting Agency Comment Specimen source: Blood Tima Salas MD LAB BLOOD ORDERABLES Final Re sult Performing Organization Address [facility] de Phone Number [facility] See order comments or contact performing lab Unknown, [place] * (ABNORMAL) [facility] Chemistry (12/19/2024) Only the most recent of5 resultswithin the time period is included. BUN 89(H) 6 - 19 mg/dL [facility] Creatinine 9.69(H) 0.60 - 1.30 mg/dL [facility] BUN/Creatinine Ratio 9.2(L) 10.0 - 20.0 [facility] Sodium 141 136 - 145 mEq/L [facility] Potassium 5.2(H) 3.5 - 5.1 mEq/L [facility] Chloride 106 96 - 108 mEq/L [facility] Bicarbonate (CO2) 15(L) 22 - 29 mEq/L [facility] Calcium 8.2(L) 8.4 - 10.2 mg/dL [facility] Corrected Calcium 8.5 8.4 - 10.2 mg/dL [facility] Comment: Corrected Calcium is not equivalent to measured Ionized Calcium. Phosphorus 7.9(H) 2.6 - 4.5 mg/dL [facility] Calcium Phosphorus Product 65(H) 0 - 54 [facility] Calcium Phosporus Product, Cor 67(H) 0 - 54 [facility] Alkaline Phosphatase 99 35 - 104 U/L [facility] LDH 193 118 - 273 U/L [facility] Albumin 3.6 3.5 - 5.2 g/dL [facility] Glucose 98 70 - 100 mg/dL [facility] Ferritin 219 10 - 291 ng/mL [facility] Iron 40 30 - 160 mcg/dL [facility] UIBC 248 155 - 355 mcg/dL [facility] TIBC 288 185 - 515 mcg/dL [facility] Iron Saturation (TSat) 14(L) 20 - 55 % [facility] 12/19/2024 12/23/2024 8:4 9 AM EDT Narrative [facility] - 12/23/2024 Unless otherwise specified, test(s) performed at: [facility], [address] [place] [address] BEHAVIORAL PSYCHOLOGIST: Latrell Pollack M.D. For any questions, please call customer service at FREQUENCY:MONTHLY Resulting Agency Comment Specimen source: Serum Tima Salas MD LAB BLOOD ORDERABLES Final Re sult Performing Organization Address [facility] de Phone Number [facility] See order comments or contact performing lab Unknown, [place] * HD KINETICS (12/03/2024) [facility] % Urea Reduction 74 65 - 80 % [facility] 12/03/2024 12/04/2024 9:5 7 AM EDT Narrative Resulting Agency Comment Specimen source: Plasma Tima Salas MD LAB BLOOD ORDERABLES Final Re sult Performing Organization Address [facility] Co de Phone Number [facility] See order comments or contact performing lab Unknown, [place] * POST CHEMISTRY (12/03/2024) Pathologist [facility] BUN Post Dialysis 18 6 - 19 mg/dL [facility] 12/03/2024 12/04/2024 9:5 7 AM EDT Narrative [facility] - 12/04/2024 Unless otherwise specified, test(s) performed at: [facility], [address] [place] [address] BEHAVIORAL PSYCHOLOGIST: Latrell Pollack M.D. For any questions, please call customer service at FREQUENCY:OTHER Resulting Agency Comment Specimen source: Plasma Tima Salas MD LAB BLOOD ORDERABLES Final Re sult Performing Organization Address City/[facility]/ZIP Co de Phone Number [facility] See order comments or contact performing lab Unknown, [place] * (ABNORMAL) SPECIAL CHEMISTRY (11/24/2024) [facility] Vitamin D, 25-OH, Total 28.3(L) 30.0 - 100.0 ng/mL [facility] Comment: Please Note:? Effective July 02, 2023, the methodology for this test has changed to the [facility]. 11/24/2024 11/25/2024 8:4 2 AM EDT Narrative Resulting Agency Comment Specimen source: Serum Tima Salas MD LAB BLOOD BANK TEST ORDERABLE S Final Result Performing Organization Address City/[facility]/ZIP Co de Phone Number [facility] See order comments or contact performing lab Unknown, [place] * TRACE ELEMENTS (11/24/2024) [facility] Aluminum <5 0 - 10 mcg/L [facility] Comment: This test was developed and its performance characteristics determined by [facility]. It has not been cleared or approved by the FDA. The laboratory is regulated under CLIA as qualified to perform high complexity testing. This test is used for clinical purposes. It should not be regarded as investigational or for research. 11/24/2024 11/25/2024 8:2 3 AM EDT Narrative [facility] - 11/25/2024 Unless otherwise specified, test(s) performed at: [facility], [address] [place] [address] BEHAVIORAL PSYCHOLOGIST: Latrell Pollack M.D. For any questions, please call customer service at FREQUENCY:MONTHLY Resulting Agency Comment Specimen source: Serum us Tima Salas MD LAB BLOOD ORDERABLES Final Re sult [facility] See order comments or contact performing lab Unknown, [place] from Last 3 Months [facility] Care Teams Securities Attorney Relationship Specialty Start Date End Date Mary Garcia FNP [address] [place] [address] PCP - General 06/19/22
--- OUTSIDE RECORDS SUMMARY | 2025-01-07 13:09 | XMS_ITS | Clinical Summary ---
Author Organization [address] [place] [address] Address [address] [place] [address] Phone Care Team Providers Care Missile Facilities Repairer Name Role Phone Rebecca Ferraro MD Primary Care Prov ider Encounters Date Type Department Care Team Description 01/07/2025 Lab Requisition [facility] - Main Lab [address] [facility] [place] [address] Danis Betancur MD Anemia in other chronic diseases classified elsewhere from Last 3 Months Social History Tobacco Use Types Packs/Day Years Used Date Smoking Tobacco: Never Assessed Comments Unknown Sex and Gender Information Value Date Recorded Sex Assigned at Not on file Legal Sex Female 6:14 AM EST Gender Identity Not on file Sexual Orientation Not on file Plan of Treatment Health Maintenance Due Date Last Done Comments Breast Cancer Screening 1965 DTaP,Tdap,and Td Vaccines (1 - Tdap) 1984 Hepatitis B Vaccines (1 of 3 - 19+ 3-dose series) 1984 Cervical Cancer Screening: P ap Smear 1986 Pneumococcal Vaccine: 50+ Ye ars (1 of 1 - PCV) 2015 Zoster Vaccines (1 of 2) 2015 Colorectal Cancer Screening: Colonoscopy 08/06/2022 Depression Screening 08/06/2022 HIV Screening 08/06/2022 Hepatitis C Screening 08/06/2022 Medicare Annual Wellness Visit 08/06/2022 Social Influencers of Health Screening 08/06/2022 COVID-19 Vaccine ( - 2023-2 5 season) 2024 Influenza Vaccine (Season Ended) 2025 RSV Immunization Adult Patie nts (1 - 1-dose 75+ series) 2040 HIB Vaccines Aged Out No longer eligi ble based on patient's age to complete this topic HPV Vaccines Aged Out No longer eligi ble based on patient's age to complete this topic Hepatitis A Vaccines Aged Out No long er eligible based on patient's age to complete this topic IPV Vaccines Aged Out No longer eligi ble based on patient's age to complete this topic MMR Vaccines Aged Out No longer eligi ble based on patient's age to complete this topic Meningococcal ACWY Vaccine Aged Out N o longer eligible based on patient's age to complete this topic Meningococcal B Vaccine Aged Out No l onger eligible based on patient's age to complete this topic Pneumococcal Vaccine: Pediat rics (0 to 5 Years) and At-Risk Patients (6 to 64 Years) Aged Out No longer eligible b ased on patient's age to complete this topic RSV Immunization Patients Un rashaun 20 months Aged Out No longer eligible b ased on patient's age to complete this topic Varicella Vaccines Aged Out No longer eligible based on patient's age to complete this topic Procedures Procedure Name Priority Date/Time Associated Diagnosis Comments HEMOGLOBIN STAT 01/07/2025 7:20 AM EDT Anemia in other chronic diseases classified elsewhere from Last 3 Months Results * (ABNORMAL) Hemoglobin (01/07/2025 7:20 AM EDT) Hemoglobin 5.7(LL) 11.5 - 16.0 g/dL LAB HEMETOLOGY METHOD 01/07/2025 9:02 AM EDT [facility] Blood Venous blood specimen / Unknown 01/07/2025 7:20 AM EDT 01/07/2025 8:44 AM EDT us Danis Betancur MD LAB BLOOD ORDERABLES Final Resul t [facility] [address] [place] [address], [place] [phone] from Last [address] [facility] [employer] Member Subscriber Plan / Payer (Ef fective 2024-2098) Name:Anh Kitchen Relation to Subscriber:Self Name:Anh Kitchen Payer ID:[id number] Group ID:Not on file Type:Not on file Address: [place] [address] [place] [id number] MEDICAID - [place] Care Teams Missile Facilities Repairer Relationship Specialty Start Date End Date Rebecca Ferraro MD [address] [place] [address] PCP - General Internal Medicine 04/17/22
--- OUTSIDE RECORDS SUMMARY | 2025-01-07 13:09 | XMS_ITS | Encounter Summary ---
Author Organization [facility] Address [address] [place] [address] Care Team Providers Care Student Activities Director Name Role Phone Rebecca Ferraro MD Primary Care Prov ider Encounter Details Date Type Department Care Team (Late st Contact Info) Description 01/07/2025 Lab Requisition [facility] - Main Lab [address] [facility] [place] [address] Danis Betancur MD [address] [facility] [address] [place] [address] Anemia in other chronic diseases classified elsewhere Social History Tobacco Use Types Packs/Day Years Used Date Smoking Tobacco: Never Assessed Comments Unknown Sex and Gender Information Value Date Recorded Sex Assigned at Not on file Legal Sex Female 6:14 AM EST Gender Identity Not on file Sexual Orientation Not on file documented as of this encounter Plan of Treatment Not on file documented as of this encounter Procedures Procedure Name Priority Date/Time Associated Diagnosis Comments HEMOGLOBIN STAT 01/07/2025 7:20 AM EDT Anemia in other chronic diseases classified elsewhere documented in this encounter Results * (ABNORMAL) Hemoglobin (01/07/2025 7:20 AM EDT) Hemoglobin 5.7(LL) 11.5 - 16.0 g/dL LAB HEMETOLOGY METHOD 01/07/2025 9:[address] [facility] Blood Venous blood specimen / Unknown 01/07/2025 7:20 AM EDT 01/07/2025 8:44 AM EDT us Danis Betancur MD LAB BLOOD ORDERABLES Final Resul t [facility] [address] [place] [address], documented in this encounter Visit Diagnoses Diagnosis Anemia in other chronic diseases classified elsewhere documented in this encounter Care Teams Student Activities Director Relationship Specialty Start Date End Date Rebecca Ferraro MD [address] [place] [address] PCP - General Internal Medicine 04/17/22 documented as of this encounter
--- OUTSIDE RECORDS SUMMARY | 2025-01-07 13:09 | XMS_ITS | Encounter Summary ---
Author Organization [facility] Address [address] [place] [address] Care Team Providers Care Blocker Metal Base Name Role Phone Emanuel Scruggs Primary Care Provider [phone] Encounter Details Date Type Department Care Team (Late st Contact Info) Description 11/15/2024 Orders Only [facility] - External Imaging [address] [place] [address] Radiology, External [address] [place] [address] Social History Tobacco Use Types Packs/Day Years [...] Info) Description 08/19/2025 1:40 PM EST Follow-Up [facility] Renal Transplant [address] [place] [address] iTto Patricio MD [address] [place] [address] 08/19/2025 2:00 PM EST Social Work [facility] Renal Transplant [address] [place] [address] Tito Patricio MD [address] [place] [address] Thomas Freeman Pending Results Name Type Priority Associated Diagnoses Date /Time CT Transfer of Outside Films Abdomen Imaging Routine 01/07/2025 8:34 AM EDT Scheduled Orders Name Type Priority Associated Diagnoses Orde r Schedule CT Transfer of Outside Films Abdomen Imaging Routine [address] arting 01/07/2025 until 03/09/2026 documented as of this encounter Visit Diagnoses Not on filedocumented in this encounter Care Teams Blocker Metal Base Relationship Specialty Start Date End Date Emanuel Scruggs [address] [place] [address] PCP - General 03/22/17 documented as of this encounter
--- OUTSIDE RECORDS SUMMARY | 2025-01-07 13:09 | XMS_ITS | Clinical Summary ---
Author Organization [facility] Address [address] [place] [address] Care Team Providers Care Electrician Bus Name Role Phone Emanuel Scruggs Primary Care Provider [phone] Allergies Active Allergy Reactions Criticality Noted Date [...] Department Care Team Description 01/06/2025 Orders Only [facility] Transplant Department [address] [place] [address] Kimber Fallon RN End stage renal disease (HCC) (Primary Dx); Pre-transplant evaluation for kidney transplant 12/30/2024 Orders Only [facility] Transplant Department [address] [place] [address] Tito Patricio MD End stage renal disease (HCC) (Primary Dx) 12/30/2024 Orders Only [facility] Transplant Department [address] [place] [address] Tito Patricio MD 12/25/2024 Telephone [facility] Transplant Department [address] [place] [address] Kimber Fallon, RN 12/24/2024 Telephone [facility] Transplant Department [address] [place] [address] Kimber Fallon RN 12/24/2024 Telephone [facility] Transplant Department [address] [place] [address] Kimber Fallon RN 12/01/2024 Documentation [facility] Transplant Department [address] [place] [address] Kimber Fallon, RN Kidney Eval 11/15/2024 Orders Only [facility] - External Imaging [address] [place] [address] Radiology, External from Last 3 Months Family History Medical [...] Info) Description 08/19/2025 1:40 PM EST Follow-Up [facility] Renal Transplant [address] [place] [address] Tito Patricio MD [address] [place] [address] 08/19/2025 2:00 PM EST Social Work [facility] Renal Transplant [address] [place] [address] Tito Patricio MD [address] [place] [address] Thomas Freeman Health Maintenance Due Date Last Done [...] Screening Completed 09/01/2024 Procedures * Due to [place] [employer] law, this organization might not be sharing [...] Maintenance Results * Due to [place] [employer] law, this organization might not be sharing [...] - 0.50 10*3/uL 09/01/2024 3:19 PM EST [facility] Basophil # <0.03 0.00 - 0.20 10*3/uL 09/01/2024 3:19 PM EST [facility] [employer] CLINICAL PATHOLOGY LABORATORY nRBC % 0.0 /100 WBCs 09/01/2024 3:19 PM EST [facility] [employer] CLINICAL PATHOLOGY LABORATORY nRBC # <0.01 <0.01 10*3/uL 09/01/2024 3:19 PM EST [facility] [employer] CLINICAL PATHOLOGY LABORATORY Blood Structure of peripheral vein / Unknown Venipuncture / Unknown 09/01/2024 2:46 PM EST 09/01/2024 3:10 PM EST us Tito Patricio MD LAB BLOOD ORDERABLES Final Resu lt Performing Organization Address [facility] Co de Phone Number [facility] [employer] CLINICAL PATHOLOGY LABORATORY [address] [place] [address], * Hepatitis C Antibody w/Reflex to PCR (09/01/2024 2:46 PM EST) Hepatitis C Antibody NON-REACT JILL NON-REACT JILL 09/02/2024 7:23 AM EST [employer] [facility] Comment: HCV antibody was non-reactive. There is no laboratory evidence of HCV infection. In most cases, no further action is required. However, if recent HCV exposure is suspected, a test for HCV RNA (test code 88007) is suggested. For additional information please refer to http://education.[employer]/faq/AQU29m6 (This link is being provided for informational/ educational purposes only.) Blood Structure of peripheral vein / Unknown Venipuncture / Unknown 09/01/2024 2:46 PM EST 09/01/2024 3:07 PM EST Narrative [facility] 09/02/2024 7:23 AM EST [facility] Received Date: us Tito Patricio MD LAB BLOOD ORDERABLES Final Resu lt Performing Organization Address City/[facility] Co de Phone Number [facility] [address] [facility] [address], [place] [address], [employer] [facility] [address] [facility] 3rd Floor, [place] [address], * (ABNORMAL) Phosphorus (09/01/2024 2:46 PM EST) Pathologist [facility] Phosphorus 8.2(H) 2.5 - 4.5 mg/dL 09/01/2024 3:52 PM EST [facility] Blood Structure of peripheral vein / Unknown Venipuncture / Unknown 09/01/2024 2:46 PM EST 09/01/2024 3:10 PM EST Tito Patricio MD LAB BLOOD ORDERABLES Final Resu Performing Organization Address [facility]/ZIP Co de Phone Number [facility] [address] [place] [address], * (ABNORMAL) PTH, Intact (without Calcium) (09/01/2024 2:46 PM EST) Pathologist [facility] Parathyroid Hormone, Intact 1488(H) 16 - 77 pg/mL 09/03/2024 7:22 AM EST [facility] Comment: Interpretive Guide ?Intact PTH ? Calcium [...] EST 09/01/2024 3:10 PM EST Narrative [facility] - 09/03/2024 7:22 AM EST [facility] Received Date: us Tito Patricio MD LAB BLOOD ORDERABLES Final Resu lt [facility] [address] [facility] [address], [place] [address], [place] [phone] [employer] [facility] [address] [facility] 3rd Floor, [place] [address], [place] [phone] from Last 3 Months or Most Recently Relevant to Health Maintenance Insurance [address] [address] [place] [id number] [facility] Care Teams Electrician Bus Relationship Specialty Start Date End Date Emanuel Scruggs [address] [place] [address] [id number] PCP - General 03/22/17
--- OUTSIDE RECORDS SUMMARY | 2025-01-07 13:09 | XMS_ITS | Encounter Summary ---
Author Organization [facility] Address [address] [place] [address] Care Team Providers Care Wiring Technician Name Role Phone Emanuel Scruggs Primary Care Provider [phone] Encounter Details Date Type Department Care Team (Late st Contact Info) Description 12/30/2024 Orders Only [facility] Transplant Department [address] [place] [address] Tito Patricio MD [address] [place] [address] Social History Tobacco Use Types Packs/Day Years [...] Info) Description 08/19/2025 1:40 PM EST Follow-Up [facility] Renal Transplant [address] [place] [address] Tito Patricio MD [address] [place] [address] 08/19/2025 2:00 PM EST Social Work [facility] Renal Transplant [address] [place] [address] Tito Patricio MD [address] [place] [address] Thomas Freeman documented as of this encounter Visit Diagnoses Not on filedocumented in this encounter Care Teams Wiring Technician Relationship Specialty Start Date End Date Emanuel Scruggs [address] [place] [address] PCP - General 03/22/17 documented as of this encounter
--- OUTSIDE RECORDS SUMMARY | 2025-01-07 13:09 | XMS_ITS ---
Author Organization [facility] Address [address] [place] [address] Care Team Providers Care It Communications Manager Name Role Phone Emanuel Scruggs Primary Care Provider [phone] Transplant Episode Kidney Candidate [facility] ([place], [place]) - [facility] Evaluation began on 09/01/2024 Marked as Active on 09/01/2024 Kidney CoordinatorKimber Fallon RN Fax: N/A Email: N/A Scores Score Value Updated Exceptions/Reas ons CPRA Not available EPTS (Calc) 28 01/07/2025 [facility] Organ Diagnosis Organ Primary Contributory Kidney Hypertensive Nephrosclerosis Care Team Name Role Phone Fax Email Kimber Fallon RN Kidney Coordinator [phone] N/A N/A Danis Betancur Referring Physician [phone] N/A Events Pre-Transplant Referred: 07/07/2024 Evaluation began: 09/01/2024 Dialysis History Dialysis History Start End Type Comments Center In-center Hemodialysis [facility] Dialysis [facility] Information Center Phone Fax Address [facility] [phone] [address] [facility] [address]
[2025-01-07 13:24] LABS: OBS Int Ctl Valid YES; OBS1 POSITIVE (NEGATIVE)
== END 2025-01-07 16:29 | disposition left against medical advice (07) ==
PROVIDERS: Physician Assistant; Emergency Provider Emergency Medicine; PCP Internal Medicine
DX: K62.5 Hemorrhage of anus and rectum (principal); I13.2 Hypertensive heart and chronic kidney disease with heart failure and with stage 5 chronic kidney disease, or end stage renal disease; N18.6 End stage renal disease; I50.22 Chronic systolic (congestive) heart failure; N17.9 Acute kidney failure, unspecified; Z99.2 Dependence on renal dialysis; D63.1 Anemia in chronic kidney disease; R51.9 Headache, unspecified; I48.91 Unspecified atrial fibrillation; J45.909 Unspecified asthma, uncomplicated; Z87.891 Personal history of nicotine dependence; Z53.29 Procedure and treatment not carried out because of patient's decision for other reasons; Z79.02 Long term (current) use of antithrombotics/antiplatelets; Z79.899 Other long term (current) drug therapy
CPT/HCPCS: 36415; 36430; 80048; 80076; 82272; 83735; 85025; 85610; 86850; 86900; 86901; 86902; 86920; 86922; 93005; 99284; 99285; P9016

== ENCOUNTER → 2025-01-07 11:15 | Outpatient (BNV) | payer OTHER, SELFPAY | PROVIDERS: Emergency Provider Emergency Medicine; PCP Internal Medicine; Visit Provider Internal Medicine | DX: R94.31 Abnormal electrocardiogram [ECG] [EKG] (principal); D64.9 Anemia, unspecified | CPT/HCPCS: 93010 ==

== ENCOUNTER 2025-01-14 10:19 | Outpatient (REF) | payer OTHER, SELFPAY ==
--- OUTSIDE RECORDS SUMMARY | 2025-01-14 11:20 | XMS_ITS | Encounter Summary ---
Author Organization [facility] Address [address] [place] [address] Care Team Providers Care Editor Greeting Card Name Role Phone Emanuel Scruggs Primary Care Provider [phone] Encounter Details Date Type Department Care Team (Late st Contact Info) Description 01/12/2025 Results Follow-Up [facility] Renal Transplant [address] [place] [address] Kimber Fallon RN [address] [place] [address] Social History Tobacco Use Types Packs/Day Years [...] Info) Description 08/19/2025 1:40 PM EST Follow-Up [facility] Renal Transplant [address] [place] [address] Tito Patricio MD [address] [place] [address] 08/19/2025 2:00 PM EST Social Work [facility] Renal Transplant [address] [place] [address] Tito Patricio MD [address] [place] [address] Thomas Freeman documented as of this encounter Visit Diagnoses Not on filedocumented in this encounter Care Teams Editor Greeting Card Relationship Specialty Start Date End Date Emanuel Scruggs [address] [place] [id number] PCP - General 03/22/17 documented as of this encounter
--- OUTSIDE RECORDS SUMMARY | 2025-01-14 11:20 | XMS_ITS ---
Author Organization [facility] Address [address] [place] [address] Care Team Providers Care Orchestrator Name Role Phone Emanuel Scruggs Primary Care Provider [phone] Transplant Episode Kidney Candidate [facility] ([place], [place]) - [facility] Evaluation began on 09/01/2024 Marked as Active on 09/01/2024 Kidney CoordinatorKimber Fallon RN Fax: N/A Email: N/A Scores Score Value Updated Exceptions/Reas ons CPRA Not available EPTS (Calc) 28 01/14/2025 [place] Organ Diagnosis Organ Primary Contributory Kidney Hypertensive Nephrosclerosis Care Team Name Role Phone Fax Email Kimber Fallon RN Kidney Coordinator [phone] N/A N/A Danis Betancur Referring Physician [phone] N/A Events Pre-Transplant Referred: 07/07/2024 Evaluation began: 09/01/2024 Dialysis History Dialysis History Start End Type Comments Center In-center Hemodialysis [facility] Dialysis [facility] Information Center Phone Fax Address [facility] [phone] [address] [facility] [address]
--- OUTSIDE RECORDS SUMMARY | 2025-01-14 11:20 | XMS_ITS | Clinical Summary ---
Author Organization [facility] Address [address] [place] [address] Care Team Providers Care Arson Investigator Name Role Phone Emanuel Scruggs Primary Care Provider [phone] Allergies Active Allergy Reactions Criticality Noted Date [...] Encounters Date Type Department Care Team Description 01/12/2025 Results Follow-Up [facility] Renal Transplant [address] [place] [address] Kimber Fallon RN 01/12/2025 Documentation [facility] Transplant Department [address] [place] [address] Kimber Fallon, RN ABO Dual Validation 01/06/2025 Orders Only [facility] Transplant Department [address] [place] [address] Kimber Fallon, RN End stage renal disease (HCC) (Primary Dx); Pre-transplant evaluation for kidney transplant 12/30/2024 Orders Only [facility] Transplant Department [address] [place] [address] Tito Patricio MD End stage renal disease (HCC) (Primary Dx) 12/30/2024 Orders Only [facility] Transplant Department [address] [place] [address] Tito Patricio MD 12/25/2024 Telephone [facility] Transplant Department [address] [place] [address] Kimber Fallon, LEROY 12/24/2024 Telephone [facility] Transplant Department [address] [place] [address] Kimber Fallon, RN 12/24/2024 Telephone [facility] Transplant Department [address] [place] [address] Kimber Fallon, RN 12/01/2024 Documentation [facility] Transplant Department [address] [place] [address] Kimber Fallon, RN Kidney Eval 11/15/2024 Orders Only [facility] - External Imaging [address] [place] [address] Radiology, External from Last 3 Months Family [...] Info) Description 08/19/2025 1:40 PM EST Follow-Up [facility] Renal Transplant [address] [place] [address] Tito Patricio MD [address] [place], [place] [id number] 08/19/2025 2:00 PM EST Social Work [facility] Renal Transplant [address] [place] [address] Tito Patricio MD [address] [place] [address] Thoams Freeman Health Maintenance Due Date Last Done [...] Screening Completed 09/01/2024 Procedures * Due to [place] [employer] law, this organization might not be sharing negative HIV tests. Procedure Name Priority Date/Time Associated Diagnosis Comments TYPE AND SCREEN - TRANSPLANT MANUAL ABSTRACTION Routine 01/02/2025 HEPATITIS C ANTIBODY W/REFLEX TO HCV RNA, [...] to Health Maintenance Results * Due to [place] [employer] law, this organization might not be sharing negative HIV tests. * TYPE AND SCREEN - TRANSPLANT MANUAL ABSTRACTION (01/02/2025) ABO O RH Positive 01/02/2025 us Unknown Provider MD LAB HISTORICAL RESULTS Final Result * (ABNORMAL) CBC Auto Differential (09/01/2024 2:46 [...] % 0.5 % 09/01/2024 3:19 PM EST [email or web address] LAB[facility] Neutrophil # 3.81 1.50 - 7.80 10*3/uL 09/01/2024 3:19 PM EST [email or web address] Immature Grans # <0.03 <=0.03 10*3/uL 09/01/2024 3:19 PM EST [email or web address] Lymphocyte # 1.80 0.85 - 3.90 10*3/uL 09/01/2024 3:19 PM EST [email or web address] Monocyte # 0.30 0.20 - 0.95 10*3/uL 09/01/2024 3:19 PM EST [facility] Eosinophil # 0.10 0.02 - 0.50 10*3/uL 09/01/2024 3:19 PM EST [facility] Basophil # <0.03 0.00 - 0.20 10*3/uL 09/01/2024 3:19 PM EST [facility] nRBC % 0.0 /100 WBCs 09/01/2024 3:19 PM EST [facility] [employer] [facility] CLINICAL PATHOLOGY LABORATORY nRBC # <0.01 <0.01 10*3/uL 09/01/2024 3:19 PM EST [facility] [employer] [facility] CLINICAL PATHOLOGY LABORATORY Blood Structure of peripheral vein / Unknown Venipuncture / Unknown 09/01/2024 2:46 PM EST 09/01/2024 3:10 PM EST us Tito Patricio MD LAB BLOOD ORDERABLES Final Resu lt [facility] [address] [place] [address], * Hepatitis C Antibody w/Reflex to PCR (09/01/2024 2:46 PM EST) Hepatitis C Antibody NON-REACT JILL NON-REACT JILL 09/02/2024 7:23 AM EST [facility] Comment: HCV antibody was non-reactive. There is no laboratory evidence of HCV infection. In most cases, no further action is required. However, if recent HCV exposure is suspected, a test for HCV RNA (test code 94037) is suggested. For additional information please refer to http://education.[employer]/faq/TYE26t1 (This link is being provided for informational/ educational purposes only.) Blood Structure of peripheral vein / Unknown Venipuncture / Unknown 09/01/2024 2:46 PM EST 09/01/2024 3:07 PM EST Narrative [facility] 09/02/2024 7:23 AM EST [facility] Received Date: us Tito Patricio MD LAB BLOOD ORDERABLES Final Resu lt Performing Organization Address City/[facility]/ZIP Co de Phone Number [facility] [address] [facility] [address] [facility], [place] [address], [place] [phone] [facility] [address], [place] [address], [place] [phone] * (ABNORMAL) Phosphorus (09/01/2024 2:46 PM EST) Phosphorus 8.2(H) 2.5 - 4.5 mg/dL 09/01/2024 3:52 PM EST [facility] CLINICAL PATHOLOGY LABORATORY Blood Structure of peripheral vein / Unknown Venipuncture / Unknown 09/01/2024 2:46 PM EST 09/01/2024 3:10 PM EST us Tito Patricio MD LAB BLOOD ORDERABLES Final Resu lt Performing Organization Address City/[facility]/ZIP Co de Phone Number [facility] CLINICAL PATHOLOGY LABORATORY [address] [place] [address], * (ABNORMAL) PTH, Intact (without Calcium) (09/01/2024 2:46 PM EST) Parathyroid Hormone, Intact 1488(H) 16 - 77 pg/mL 09/03/2024 7:22 AM EST [facility] Comment: Interpretive Guide ?Intact PTH ? Calcium [...] EST 09/01/2024 3:10 PM EST Narrative [facility] - 09/03/2024 7:22 AM EST [facility] Received Date: us Tito Patricio MD LAB BLOOD ORDERABLES Final Resu lt [facility] [address] [facility] [address]rd [address], [place] [address], [place] [phone] [facility] [address] [facility] [address]rd [address], [place] [address], [place] [phone] from Last 3 Months or Most Recently Relevant to Health Maintenance Insurance [facility] Care Teams Arson Investigator Relationship Specialty Start Date End Date Emanuel Scruggs [address] [place] [id number] PCP - General 03/22/17
--- OUTSIDE RECORDS SUMMARY | 2025-01-14 11:20 | XMS_ITS | Clinical Summary ---
Author Organization [facility] Facility Address [address] [place] [address] Care Team Providers Care Lottery Sales Clerk Name Role Phone Mary Garcia LISA Primary Care Provider [phone] Allergies Active Allergy Reactions Criticality Noted Date [...] in the evening. Active ergocalciferol 1.25 MG (77489 UT) capsule Take 1 capsule by mouth [...] Only [facility] [address] [place] [address] Tima Salas MD from Last 3 Months [...] Date/Time Associated Diagnosis Comments HD KINETICS Routine 01/07/2025 POST CHEMISTRY Routine 01/07/2025 CHEMISTRY Routine 01/07/2025 THYROIDS Routine 12/19/2024 IMMUNO CHEMISTRY Routine 12/19/2024 CHEMISTRY Routine 12/19/2024 HEMATOLOGY Routine 12/19/2024 CHEMISTRY Routine 12/19/2024 HD KINETICS Routine 12/03/2024 POST CHEMISTRY Routine 12/03/2024 CHEMISTRY Routine 12/03/2024 HEMATOLOGY Routine 11/24/2024 TRACE ELEMENTS Routine 11/24/2024 THYROIDS Routine 11/24/2024 CHEMISTRY Routine 11/24/2024 IMMUNO CHEMISTRY Routine 11/24/2024 SPECIAL CHEMISTRY Routine 11/24/2024 CHEMISTRY Routine 11/24/2024 from Last 3 Months Results * HD KINETICS (01/07/2025) Only the most recent of2 resultswithin the time period is included. % Urea Reduction 73 65 - 80 % [facility] 01/07/2025 01/08/2025 10: 48 AM EDT Narrative Resulting Agency Comment Specimen source: Plasma Tima Salas MD LAB BLOOD ORDERABLES Final Re sult [email or web address] See order comments or contact performing lab Unknown, [place] * (ABNORMAL) POST CHEMISTRY (01/07/2025) Only the most recent of2 resultswithin the time period is included. BUN Post Dialysis 20(H) 6 - 19 mg/dL [facility] 01/07/2025 01/08/2025 10: 48 AM EDT Narrative [facility] - 01/09/2025 Unless otherwise specified, test(s) performed at: [facility], [address] [place] [address] GENERAL MANAGER: Latrell Pollack M.D. For any questions, please call customer service at FREQUENCY:OTHER Resulting Agency Comment Specimen source: Plasma Tima Salas MD LAB BLOOD ORDERABLES Final Re sult Performing Organization Address [facility] de Phone Number [facility] See order comments or contact performing lab Unknown, [place] * (ABNORMAL) [facility] Chemistry (01/07/2025) Only the most recent of6 resultswithin the time period is included. BUN 74(H) 6 - 19 mg/dL [facility] 01/07/2025 01/08/2025 10: 03 AM EDT Narrative [facility] - 01/08/2025 Unless otherwise specified, test(s) performed at: [facility] [address] GENERAL MANAGER: Latrell Pollack M.D. For any questions, please call customer service at FREQUENCY:OTHER Resulting Agency Comment Specimen source: Serum Tima Salas MD LAB BLOOD ORDERABLES Final Re sult Performing Organization Address [facility] de Phone Number [email or web address] See order comments or contact performing lab Unknown, [place] * THYROIDS (12/19/2024) Only the most recent of2 resultswithin the time period is included. TSH 1.481 0.300 - 3.000 mIU/L [facility] Comment: The reference range of 0.300-3.000 mIU/L is recommended by the [place] [employer]ocrin[employer] (AACE). An ESRD population contains about 20% of individuals with TSH of up to 20 mIU/L and normal free T4 consistent with non-thyroidal illness. ESRD patients with true hypothyroidism develop persistent values above 20 mIU/L. 12/19/2024 12/23/2024 8:4 9 AM EDT Narrative [facility] - 12/23/2024 Unless otherwise specified, test(s) performed at: [facility], [address] [place], [place] [id number] GENERAL MANAGER: Latrell Pollack M.D. For any questions, please call customer service at FREQUENCY:MONTHLY Resulting Agency Comment Specimen source: Serum Tima Salas MD LAB BLOOD ORDERABLES Final Re sult Performing Organization Address [facility] de Phone Number [facility] See order comments or contact performing lab Unknown, [place] * IMMUNO CHEMISTRY (12/19/2024) Only the most recent of2 resultswithin the time period is included. [facility] Hep B Surface Ag Negative Negative [facility] 12/19/2024 12/23/2024 8:4 9 AM EDT Narrative Resulting Agency Comment Specimen source: Serum Tima Salas MD LAB BLOOD ORDERABLES Final Re sult Performing Organization Address [facility] Phone Number [email or web address] See order comments or contact performing lab Unknown, [place] * (ABNORMAL) HEMATOLOGY (12/19/2024) Only the most recent of2 resultswithin the time period is included. [facility] Hemoglobin 7.3(L) 12.0 - 16.0 g/dL [facility] Hemoglobin x 3 21.9(L) 36.0 - 48.0 % [facility] 12/19/2024 12/23/2024 9:3 9 AM EDT Narrative [facility] - 12/23/2024 Unless otherwise specified, test(s) performed at: [facility], [address] [place], [place] [id number] GENERAL MANAGER: Latrell Pollack M.D. For any questions, please call customer service at FREQUENCY:MONTHLY Resulting Agency Comment Specimen source: Blood Tima Salas MD LAB BLOOD ORDERABLES Final Re sult Performing Organization Address [facility] de Phone Number [facility] See order comments or contact performing lab Unknown, [place] * (ABNORMAL) SPECIAL CHEMISTRY (11/24/2024) [facility] Vitamin D, 25-OH, Total 28.3(L) 30.0 - 100.0 ng/mL [facility] Comment: Please Note:? Effective July 02, 2023, the methodology for this test has changed to the [facility]. 11/24/2024 11/25/2024 8:4 2 AM EDT Narrative Resulting Agency Comment Specimen source: Serum Tima Salas MD LAB BLOOD BANK TEST ORDERABLE S Final Result Performing Organization Address [facility]/ZIP Co de Phone Number [email or web address] See order comments or contact performing lab Unknown, [place] * TRACE ELEMENTS (11/24/2024) [facility] Aluminum <5 0 - 10 mcg/L [facility] Comment: This test was developed and its performance characteristics determined by [facility]. It has not been cleared or approved by the FDA. The laboratory is regulated under CLIA as qualified to perform high complexity testing. This test is used for clinical purposes. It should not be regarded as investigational or for research. 11/24/2024 11/25/2024 8:2 3 AM EDT Narrative [facility] - 11/25/2024 Unless otherwise specified, test(s) performed at: [facility], [address] [place], [place] [id number] GENERAL MANAGER: Latrell Pollack M.D. For any questions, please call customer service at FREQUENCY:MONTHLY Resulting Agency Comment Specimen source: Serum Tima Salas MD LAB BLOOD ORDERABLES Final Re sult [email or web address] See order comments or contact performing lab Unknown, [place] from Last 3 Months Insurance Care Teams Lottery Sales Clerk Relationship Specialty Start Date End Date Mary Garcia FNP [address] [place] [address] PCP - General 06/19/22
--- OUTSIDE RECORDS SUMMARY | 2025-01-14 11:20 | XMS_ITS | Encounter Summary ---
Author Organization [facility] Address [address] [place] [address] Care Team Providers Care Industrial Recruiter Name Role Phone Emanuel Scruggs Primary Care Provider [phone] Reason for Visit * Reason Onset Date Comments ABO Dual Validation 01/12/2025 Encounter Details Date Type Department Care Team (Late st Contact Info) Description 01/12/2025 Documentation [facility] Transplant Department [address] [place] [address] Kimber Fallon, RN [address] [place] [address] ABO Dual Validation Social History Tobacco Use Types Packs/Day Years [...] Info) Description 08/19/2025 1:40 PM EST Follow-Up [facility] Renal Transplant [address] [place] [address] Tito Patricio MD [address] [place] [address] 08/19/2025 2:00 PM EST Social Work [facility] Renal Transplant [address] [place] [address] Tito Patricio MD [address] [place] [address] Thomas Freeman documented as of this encounter Procedures * Due to [facility] [place] law, this organization might not be sharing negative HIV tests. Procedure Name Priority Date/Time Associated Diagnosis Comments TYPE AND SCREEN - TRANSPLANT MANUAL ABSTRACTION Routine 01/02/2025 documented in this encounter Results * Due to [employer] [place] law, this organization might not be sharing negative HIV tests. * TYPE AND SCREEN - TRANSPLANT MANUAL ABSTRACTION (01/02/2025) ABO O RH Positive 01/02/2025 us Unknown Provider LAB HISTORICAL RESULTS Final Result documented in this encounter Visit Diagnoses Not on filedocumented in this encounter Care Teams Industrial Recruiter Relationship Specialty Start Date End Date Emanuel Scruggs [address] [place] [address] PCP - General 03/22/17 documented as of this encounter
--- OUTSIDE RECORDS SUMMARY | 2025-01-14 11:20 | XMS_ITS | Encounter Summary ---
Author Organization [facility] Address [address] [place] [address] Care Team Providers Care Disassembler Product Name Role Phone Rebecca Ferraro MD Primary Care Prov ider Encounter Details Date Type Department Care Team (Late st Contact Info) Description 01/07/2025 Lab Requisition [facility] - Main Lab [address] [facility] [place] [address] Danis Betancur MD [address] [facility] [address] [place] [address] Anemia in other chronic diseases [...] LAB HEMETOLOGY METHOD 01/07/2025 9:02 AM EDT [facility] ([facility]) [facility] LAB Blood Venous blood specimen / Unknown 01/07/2025 7:20 AM EDT 01/07/2025 8:44 AM EDT us Danis Betancur MD LAB BLOOD ORDERABLES Final Resul t [facility] LAB [address] [place] [address], documented in this encounter Visit Diagnoses Diagnosis Anemia in other chronic diseases classified elsewhere documented in this encounter Care Teams Disassembler Product Relationship Specialty Start Date End Date Rebecca Ferraro MD [address] [place] [address] PCP - General Internal Medicine 04/17/22 documented as of this encounter
--- OUTSIDE RECORDS SUMMARY | 2025-01-14 11:20 | XMS_ITS | Referral Summary ---
Author Organization [facility] Address [address] [place] [address] Care Team Providers Care Non Destructive Evaluation Technician Name Role Phone Emanuel Scruggs Primary Care Provider [phone] Encounters Date Type Department Care Team Description 01/12/2025 Results Follow-Up [facility] Renal Transplant [address] [place] [address] Kimber Fallon RN 01/12/2025 Documentation [facility] Transplant Department [address] [place] [address] Kimber Fallon, RN ABO Dual Validation 01/06/2025 Orders Only [facility] Transplant Department [address] [place] [address] Kimber Fallon RN End stage renal disease (HCC) (Primary Dx); Pre-transplant evaluation for kidney transplant 12/30/2024 Orders Only [facility] Transplant Department [address] [place] [address] Tito Patricio MD End stage renal disease (HCC) (Primary Dx) 12/30/2024 Orders Only [facility] Transplant Department [address] [place] [address] Tito Patricio MD 12/25/2024 Telephone [facility] Transplant Department [address] [place] [address] Kimber Fallon RN 12/24/2024 Telephone [facility] Transplant Department [address] [place] [address] Kimber Fallon RN 12/24/2024 Telephone [facility] Transplant Department [address] [place] [address] Kimber Fallon RN 12/01/2024 Documentation [facility] Transplant Department [address] [place] [address] Kimber Fallon, RN Kidney Eval 11/15/2024 Orders Only [facility] - External Imaging [address] [place] [address] Radiology, External from Last 3 Months Allergies [...] Info) Description 08/19/2025 1:40 PM EST Follow-Up [facility] Renal Transplant [address] [place] [address] Tito Patricio MD [address] [place] [address] 08/19/2025 2:00 PM EST Social Work [facility] Renal Transplant [address] [place] [address] Tito Patricio MD [address] [place] [address] Thomas Freeman Procedures * Due to [place] [employer] law, this organization might not be sharing [...] to Health Maintenance Results * Due to [place] [employer] law, this organization might not be sharing [...] % 2.3 % 09/01/2024 3:19 PM EST [facility] Basophil % 0.5 % 09/01/2024 3:19 PM EST [facility] Neutrophil # 3.81 1.50 - 7.80 10*3/uL 09/01/2024 3:19 PM EST [facility] Immature Grans # <0.03 <=0.03 10*3/uL 09/01/2024 3:19 PM EST [facility] Lymphocyte # [...] - 0.20 10*3/uL 09/01/2024 3:19 PM EST [facility] nRBC % 0.0 /100 WBCs 09/01/2024 3:19 PM EST [facility] nRBC # <0.01 <0.01 10*3/uL 09/01/2024 3:19 PM EST [facility] Blood Structure of peripheral vein / Unknown Venipuncture / Unknown 09/01/2024 2:46 PM EST 09/01/2024 3:10 PM EST Tito Patricio MD LAB BLOOD ORDERABLES Final Resu lt [facility] [address] [place] [address], * Hepatitis C Antibody w/Reflex to PCR (09/01/2024 2:46 PM EST) Hepatitis C Antibody NON-REACT JILL NON-REACT JILL 09/02/2024 7:23 AM EST [facility] Comment: HCV antibody was non-reactive. There is no laboratory evidence of HCV infection. In most cases, no further action is required. However, if recent HCV exposure is suspected, a test for HCV RNA (test code 97764) is suggested. For additional information please refer to http://education.kwiry/faq/PCX72m1 (This link is being provided for informational/ educational purposes only.) Blood Structure of peripheral vein / Unknown Venipuncture / Unknown 09/01/2024 2:46 PM EST 09/01/2024 3:07 PM EST Narrative [facility] 09/02/2024 7:23 AM EST [facility] Received Date: Tito Patricio MD LAB BLOOD ORDERABLES Final Resu lt Performing Organization Address City/[facility]/ZIP Co de Phone Number [facility] [address] [facility] [address] [facility], [place] [address], [facility] [address], [place] [address], * (ABNORMAL) Phosphorus (09/01/2024 2:46 PM EST) Phosphorus 8.2(H) 2.5 - 4.5 mg/dL 09/01/2024 3:52 PM EST [facility] Blood Structure of peripheral vein / Unknown Venipuncture / Unknown 09/01/2024 2:46 PM EST 09/01/2024 3:10 PM EST Tito Patricio MD LAB BLOOD ORDERABLES Final Resu lt Performing Organization Address City/[facility]/ZIP Co de Phone Number [facility] [address] [place] [address], [place] * (ABNORMAL) PTH, Intact (without Calcium) (09/01/2024 2:46 PM EST) Parathyroid Hormone, Intact 1488(H) 16 - 77 pg/mL 09/03/2024 7:22 AM EST [facility] Comment: Interpretive Guide ?Intact PTH ? Calcium [...] EST 09/01/2024 3:10 PM EST Narrative [facility] - 09/03/2024 7:22 AM EST [facility] Received Date: Tito Patricio MD LAB BLOOD ORDERABLES Final Resu lt [facility] [address] [facility] [address], [place] [address], [employer] [address] [facility] [address], [place] [address], [place] [phone] from Last 3 Months or Most Recently Relevant to Health Maintenance Insurance [facility] [employer] [employer] Care Teams Non Destructive Evaluation Technician Relationship Specialty Start Date End Date Emanuel Scruggs [address] [place] [address] PCP - General 03/22/17
--- OUTSIDE RECORDS SUMMARY | 2025-01-14 11:20 | XMS_ITS | Clinical Summary ---
Author Organization [address] [place] [address] Address [address] [place] [address] Phone Care Team Providers Care Dancing Master Name Role Phone Rebecca Ferraro MD Primary Care Prov ider Encounters Date Type Department Care Team Description 01/07/2025 Lab Requisition [facility] - Main Lab [address] [facility] [place] [address] Danis Betancur MD Anemia in [...] LAB HEMETOLOGY METHOD 01/07/2025 9:02 AM EDT [facility] LAB Blood Venous blood specimen / Unknown 01/07/2025 7:20 AM EDT 01/07/2025 8:44 AM EDT us Danis Betancur MD LAB BLOOD ORDERABLES Final Resul t [facility] [address] [place] [address], [place] [phone] from Last 3 Months Insurance [facility] [employer] Member Subscriber Plan / Payer (Ef fective 2024-2098) Name:Anh Kitchen Relation to Subscriber:Self Name:Anh Kitchen Payer ID:[id number] Group ID:Not on file Type:Not on file Address: [place] [address] [place] [address] MEDICAID - [place] Care Teams Dancing Master Relationship Specialty Start Date End Date Rebecca Ferraro MD [address] [place] [address] PCP - General Internal Medicine 04/17/22
== END 2025-01-14 10:20 | disposition home or self-care (01) ==
LOC: HO.LAB 10:19
PROVIDERS: PCP Internal Medicine; Visit Provider Internal Medicine
DX: Z01.818 Encounter for other preprocedural examination (principal); N18.6 End stage renal disease
CPT/HCPCS: 86900; 86901

== ENCOUNTER 2025-01-27 09:47 | Outpatient (REF) | payer OTHER, SELFPAY ==
--- OUTSIDE RECORDS SUMMARY | 2025-01-27 10:24 | XMS_ITS | Clinical Summary ---
Author Organization [facility] Address [address] [place] [address] Care Team Providers Care College Intern Name Role Phone Emanuel Scruggs Primary Care Provider [phone] Allergies Active Allergy Reactions Criticality Noted Date [...] Encounters Date Type Department Care Team Description 01/16/2025 Documentation [facility] Transplant Department [address] [place] [address] Kimber Fallon RN ABO Dual Validation 01/16/2025 Documentation [facility] Transplant Department [address] [place] [address] Kimber Fallon RN 01/14/2025 Orders Only [facility] Transplant Department [address] [place] [address] Tito Patricio MD 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) 01/12/2025 Results Follow-Up [facility] Renal Transplant [address] [place] [address] Kimber Fallon RN 01/12/2025 Documentation [facility] Transplant Department [address] [place] [phone] Kimber Fallon RN ABO Dual Validation 01/06/2025 Orders Only [facility] Transplant Department [address] [place] [phone] Kimber Fallon RN End stage renal disease (HCC) (Primary Dx); Pre-transplant evaluation for kidney transplant 12/30/2024 Orders Only [facility] Transplant Department [address] [place] [phone] Tito Patricio MD End stage renal disease (HCC) (Primary Dx) 12/30/2024 Orders Only [facility] Transplant Department [address] [place] [phone] Tito Patricio MD 12/25/2024 Telephone [facility] Transplant Department [address] [place] [phone] Kimber Fallon RN 12/24/2024 Telephone [facility] Transplant Department [address] [place] [phone] Kimber Fallon RN 12/24/2024 Telephone [facility] Transplant Department [address] [place] [phone] Kimber Fallon, RN 12/01/2024 Documentation [facility] Transplant Department [address] [place] [phone] Kimber Fallon, RN Kidney Eval 11/15/2024 Orders Only [facility] - External Imaging [address] [place] [phone] Radiology, External from Last 3 Months Family [...] Info) Description 08/19/2025 1:40 PM EST Follow-Up [facility] Renal Transplant [address] [place] [address] Tito Patricio MD [address] [place] [address] 08/19/2025 2:00 PM EST Social Work [facility] Renal Transplant [address] [place] [address] Tito Patricio MD [address] [place] [address] [facility] Health Maintenance Due Date Last [...] 2015 COVID-19 Vaccine (1 - season) 2024 Alcohol/Substance Use Screening 09/03/2024 [...] Screening Completed 09/01/2024 Procedures * Due to [place] state law, this organization might not be sharing negative HIV tests. Procedure Name Priority Date/Time Associated Diagnosis Comments TYPE AND SCREEN - TRANSPLANT MANUAL ABSTRACTION Routine 01/14/2025 HEPATITIS C ANTIBODY W/REFLEX TO HCV RNA, [...] to Health Maintenance Results * Due to [place] state law, this organization might not be sharing negative HIV tests. * TYPE AND SCREEN - TRANSPLANT MANUAL ABSTRACTION (01/14/2025) ABO A RH Positive 01/14/2025 us Unknown Provider MD LAB HISTORICAL RESULTS [...] % 0.5 % 09/01/2024 3:19 PM EST [facility] Neutrophil # 3.81 1.50 - 7.80 10*3/uL 09/01/2024 3:19 PM EST [facility] Immature Grans [...] - 0.50 10*3/uL 09/01/2024 3:19 PM EST [facility] Basophil # <0.03 0.00 - 0.20 10*3/uL 09/01/2024 3:19 PM EST [facility] nRBC % 0.0 /100 WBCs 09/01/2024 3:19 PM EST [facility] nRBC # <0.01 <0.01 10*3/uL 09/01/2024 3:19 PM EST [facility] Blood Structure of peripheral vein / Unknown Venipuncture / Unknown 09/01/2024 2:46 PM EST 09/01/2024 3:10 PM EST us Tito Patricio MD LAB BLOOD ORDERABLES Final Resu lt [facility] [address] [place] [address], [place] * Hepatitis C Antibody w/Reflex to PCR (09/01/2024 2:46 PM EST) Hepatitis C Antibody NON-REACT JILL NON-REACT JILL 09/02/2024 7:23 AM EST [facility] Comment: HCV antibody was non-reactive. There is no laboratory evidence of HCV infection. In most cases, no further action is required. However, if recent HCV exposure is suspected, a test for HCV RNA (test code 69307) is suggested. For additional information please refer to http://education.MustHaveMenus/faq/JPJ42v5 (This link is being provided for informational/ educational purposes only.) Blood Structure of peripheral vein / Unknown Venipuncture / Unknown 09/01/2024 2:46 PM EST 09/01/2024 3:07 PM EST Narrative [facility] - 09/02/2024 7:23 AM EST [facility] Received Date: us Tito Patricio MD LAB BLOOD ORDERABLES Final Resu lt Performing Organization Address City/[facility]/ZIP Co de Phone Number DEJAN GALVEZ [address] [facility] [address], [place] [address], [place] [phone] [employer] [facility] [address] [facility] [address] [facility], [place] [address], [place] [phone] * (ABNORMAL) Phosphorus (09/01/2024 2:46 PM EST) Phosphorus 8.2(H) 2.5 - 4.5 mg/dL 09/01/2024 3:52 PM EST [facility] Blood Structure of peripheral vein / Unknown Venipuncture / Unknown 09/01/2024 2:46 PM EST 09/01/2024 3:10 PM EST Tito Patricio MD LAB BLOOD ORDERABLES Final Resu lt Performing Organization Address [facility]/ZIP Co de Phone Number [facility] [address] [place] [address], * (ABNORMAL) PTH, Intact (without Calcium) (09/01/2024 2:46 PM EST) Parathyroid Hormone, Intact 1488(H) 16 - 77 pg/mL 09/03/2024 7:22 AM EST [employer] Comment: Interpretive Guide ?Intact PTH ? Calcium [...] ORDERABLES Final Resu lt Performing Organization Address City/[facility]/ZIP Co de Phone Number [facility] [address] [place] [address] 3rd Floor, [place] [address], [place] [phone] [facility] [address] [facility] [address], [place] [address], [place] [phone] from Last 3 Months or Most Recently Relevant to Health Maintenance Insurance [facility] Care Teams College Intern Relationship Specialty Start Date End Date Emanuel Scruggs [address] [place] [id number] PCP - General 03/22/17
== END 2025-01-27 09:48 | disposition home or self-care (01) ==
LOC: HO.MAMMO 09:47
PROVIDERS: PCP Internal Medicine; Visit Provider Internal Medicine
DX: Z12.31 Encounter for screening mammogram for malignant neoplasm of breast (principal)
CPT/HCPCS: 77063; 77067

== ENCOUNTER → 2025-01-27 10:00 | Outpatient (BNV) | payer OTHER, SELFPAY | PROVIDERS: PCP Internal Medicine; Visit Provider Internal Medicine | DX: Z12.31 Encounter for screening mammogram for malignant neoplasm of breast (principal) | CPT/HCPCS: 77063; 77067 ==

== ENCOUNTER 2025-02-16 09:32 | Inpatient (IN) | payer OTHER, SELFPAY ==
[2025-02-16 09:44] VITALS: BP 159/85; PULSE 75; RESP 16; TEMP 36.5; O2SAT 99; BMI 28.5
--- NOTE | 2025-02-16 09:55 | ECG_ITS ---
Test Reason : abnormal labs Blood Pressure : */* mmHG Vent. Rate : 67 BPM Atrial Rate : 67 BPM P-R Int : 120 ms QRS Dur : 86 ms QT Int : 394 ms P-R-T Axes : 29 -11 133 degrees QTcB Int : 416 ms Normal sinus rhythm ST & T wave abnormality, consider lateral ischemia Abnormal ECG When compared with ECG of 07-Jan-2025 11:32, T wave inversion now evident in Lateral leads QT has shortened Referred By: Generic ED Physician Electronically Signed By: Nirav Zamudio
--- NOTE | 2025-02-16 10:40 | ED_ITS ---
HPI - General Adult General Chief complaint: Recheck/Abnormal Lab/Rx Stated complaint: missed dialysis Time Seen by Provider: 02/16/25 10:40 Source: patient Limitations: language barrier History of Present Illness ED Provider: Dr. Tho Olivas HPI narrative: 59-year-old female with a past medical history of NSTEMI, end-stage renal disease on dialysis M/W/F, hyperparathyroidism CKD and anemia cardiomyopathy hypertension asthma GI bleed. Presented to the ED at the urgency of her dialysis center because she has missed the last 2 weeks/6 visits of scheduled dialysis. She endorses recent missed appointments during the 1st week were due to uncontrolled vomiting, and then the following week was due to diarrhea and being picked up by her transportation too early and did not want to wait in the dialysis center so she decided to leave. She also reports that she was told on Sunday to not return to that center however that center did call her daughter to ask her why she was not in attendance today and that she needed to come to the ED. Patient denies having any symptoms, denies chest pain, shortness of breath, edema, or weight gain. Indicates that the diarrhea and vomiting has since resolved. Related Data Home Medications ?Medication ?Instructions ?Recorded ?Confirmed sevelamer HCl 800 mg tablet 800 mg PO TID 09/14/24 12/18/24 Previous Rx's ?Medication ?Instructions ?Recorded blood pressure monitor #1 ea 11/10/23 sitz bath #1 ea 11/13/23 Grab bar #1 ea 11/22/23 Shower Chair #1 ea 11/22/23 bed rail #1 ea 11/22/23 hand held shower #1 11/22/23 pill box twice daily #1 ea 11/22/23 ferrous sulfate 325 mg (65 mg 325 mg PO BID #180 tabs 07/04/24 iron) tablet,delayed release atorvastatin 80 mg tablet 80 mg PO BEDTIME 90 days #90 tabs 09/11/24 sitz bath #1 ea 09/11/24 cocoa butter-zinc oxide 76 %-10 % 1 supp MD QID PRN rectal bleed #24 11/20/24 rectal suppository (Calmol-4) ea omeprazole 20 mg capsule,delayed 20 mg PO DAILY@0630 #90 caps 11/20/24 release recliner #1 ea 11/24/24 hydrocortisone 2.5 % topical 1 appl topical BID #28.35 grams 11/27/24 ointment sodium bicarbonate 650 mg tablet 1,300 mg (2 x 650 mg) PO TID #540 12/30/24 tabs simethicone 180 mg capsule (Gas 180 mg PO BID PRN abdominal 01/26/25 Relief (simethicone)) distention 30 days #60 caps carvedilol 6.25 mg tablet 6.25 mg PO BID #180 tabs 01/27/25 Allergies Allergy/AdvReac Type Severity Reaction Status Date / Time Penicillins Allergy Intermediate RASH Verified 02/16/25 09:48 Review of Systems 2 Review of Systems: Yes all other systems are reviewed and are negative [facility] Past Medical History [facility] Narrative: social history: Denies smoking, alcohol, drug use. Medical History (Updated 02/16/25 @ 14:36 by Tho Olivas MD) ESRD (end stage renal disease) on dialysis Back pain Asthma History of blood transfusion NSTEMI (non-ST elevated myocardial infarction) Atrial fibrillation Acute on chronic kidney failure Secondary hyperparathyroidism (of renal origin) Anemia in chronic kidney disease (CKD) Chronic systolic (congestive) heart failure Cardiomyopathy CKD (chronic kidney disease) stage 5, GFR less than 15 ml/min Essential hypertension Normocytic anemia Surgical History History of esophagogastroduodenoscopy (EGD) Hx of colonoscopy History of surgery Status post dilation and curettage History of abdominal surgery History of extraction of renal calculus History of tubal ligation Family History Family History Father Throat cancer Mother Hypertension Daughter In good health Daughter In good health Sister In good health Family/Other Breast cancer Social History Social History Household Members: None Housing: Other Housing Other:: studio Are you a primary lawn care specialist to a significant other at home: No Do you presently have visiting nurse or other home services: Yes ([employer]) Unable to assess alcohol history related to: Unknown Alcohol intake: never Comment: Pt declining bed alarm Patient Tobacco Use Status: Former Tobacco user Tobacco use type: Cigarette Years Smoked: 30 +/- e-Cigarette/Vaping Use: Never Used Second Hand Smoke Exposure: No Advance Directives: Yes Advance Directives on File: Yes Advance Directives Date on File: 11/21/23 service: No Current occupational status: unemployed Cognitive needs: No Hearing needs: No Vision needs: No Physical Exam ED Vital Signs: Vital Signs - 24 hr 02/16/25 09:44 02/16/25 11:03 Temperature 97.7 F Pulse Rate 75 62 Respiratory Rate 16 16 Blood Pressure 159/85 H 176/87 H Pulse Oximetry 99 99 Oxygen Delivery Method Room Air Room Air BMI result Body Mass Index 28.5 Vital signs revealed an elevated blood pressure otherwise normal. Exam: General: Awake, alert in no distress Head: Normocephalic, atraumatic EENT: Lids normal, sclera normal, conjunctiva normal, nose normal , ears normal, throat without erythema or exudates Neck: Supple, no adenopathy Lung: breath sounds symmetric, no wheezing, rales or rhonchi Chest: symmetric movement, nontender Heart: regular rate and rhythm, normal S1, S2 no murmurs or rubs Abdomen: soft, non-tender, distended, normal bowel sounds Back: no vertebral tenderness, no CVAT Extremities: no deformities, moves all extremities symmetrically Neuro: Awake, alert, oriented, normal speech, cranial nerves intact, moves all extremities symmetrically Psych: Pleasant, cooperative Medications Administered Discontinued Medications Generic Name Dose Route Start Last Admin Trade Name Freq PRN Reason Stop Dose Admin Sodium Zirconium Cyclosilicate 10 gm 02/16/25 12:24 02/16/25 13:22 Sodium Zirconium Cyclosilicate 10 Gm Powd.Pack PO 02/16/25 12:25 10 gm ONCE ONE Administration Medical Decision Making Medical Decision Making MDM Narrative: enter because she has missed the last 2 weeks/6 visits of scheduled dialysis. She endorses recent missed appointments during the 1st week were due to uncontrolled vomiting, and then the following week was due to diarrhea and being picked up by her transportation too early and did not want to wait in the dialysis center so she decided to leave. She also reports that she was told on Sunday to not return to that center however that center did call her daughter to ask her why she was not in attendance today and that she needed to come to the ED. Patient denies having any symptoms, denies chest pain, shortness of breath, edema, or weight gain. Indicates that the diarrhea and vomiting has since resolved. Vital signs were normal except for slightly elevated blood pressure at 159/85, abdomen distended nontender positive bowel sounds x4, lung CTA. Differential diagnosis: ?Includes but is not limited to electrolyte derangement, fluid retention, CHF, anemia, CO Course: 14:39 my independent interpretation of the labs are as follows: WBC 4.2, HGB 11.7, HCT 37.4, platelet 136. Na +148, K +5.9 was given Lokelma 10 mg orally, chloride 125, carbon dioxide 11, BUN 125, creatinine 9.83. VBG: PH 7.30, PC02 22, HC 0311. EKG shows normal sinus rhythm, with new inverted T-waves in leads 1, aVL, V5 and, V6, when compared to EKG 11/14/2024. Patient's presentation is consistent with hyperkalemia due to end-stage renal disease and missed dialysis x2 weeks. I discuss patient with nephrology over tiger text plan to admit for dialysis. I discussed the patient's presentation with the hospitalist Dr. Fuller who agrees to admit this patient. Admission/Observation Consideration of admission/observation: Escalation of care including admission/observation considered (Yes) Consult Healthcare Provider Management of the patient was discussed with: Hospitalist and Oyster Culturist (Nephrology) Lab Data MDM Lab Attestation statement: I reviewed the patient's lab results. 02/16/25 11:33 02/16/25 11:33 Labs: Lab Results 02/16/25 Range/Units 11:33 WBC 4.2 L (4.8-10.8) X10*3/uL RBC 3.86 L D (4.20-5.50) X10*6/uL Hgb 11.7 L D (12.0-16.0) g/dl Hct 37.4 D (37.0-47.0) % MCV 96.9 (80.0-98.0) fL MCH 30.3 (27.0-33.0) pg MCHC 31.3 (31.0-35.0) g/dl RDW 14.6 (11.0-16.0) % Plt Count 136 L (160-400) X10*3/uL MPV 10.4 (9.4-12.3) fL Immature Gran % (Auto) 0.2 (0.0-0.4) % Neut % (Auto) 62.8 (45-73) % Lymph % (Auto) 25.9 (20-40) % [place] % (Auto) 8.2 (2-11) % Eos % (Auto) 2.2 (0-4) % Baso % (Auto) 0.7 (0-2) % Lymph # (Auto) 1.1 L (1.2-4.9) X10*3/uL [place] # (Auto) 0.3 (0.1-1.2) X10*3/uL Eos # (Auto) 0.1 (0.0-0.4) X10*3/uL Baso # (Auto) 0.0 (0.0-0.2) X10*3/uL Abs Immat Gran (auto) 0.01 (0.00-0.03) X10*3/uL Absolute Neuts (auto) 2.6 (2.0-8.3) x10*3/uL Absolute Nucleated RBC 0.000 (0.0-0.012) X10*3/uL Nucleated RBC % (auto) 0.0 (0.0-0.2) /100WBC Sodium 148 H (135-145) mmol/L Potassium 5.9 H D (3.3-5.1) mmol/L Chloride 125 H D (96-108) mmol/L Carbon Dioxide 11 L (22-29) mmol/L Anion Gap 18 (12-20) BUN 125 H (9-16) mg/dL Creatinine 9.83 H* (0.5-1.4) mg/dL Estim Creat Clear Calc 6.3 Estimated GFR 4 Random Glucose 73 (60-115) mg/dL Calcium 8.8 (8.4-10.2) mg/dL Total Bilirubin 0.4 (0.0-1.0) mg/dL AST 12 (5-31) U/L ALT 14 (0-31) U/L Alkaline Phosphatase 97 (39-117) U/L Total Protein 7.3 (6.5-8.0) g/dL Albumin 4.1 (3.5-5.0) g/dL Independent Interpretation I performed an independent interpretation of an: EKG Interpretation: My independent interpretation of the EKG done on 02/16/2025 at 10:17 is as follows: normal sinus with a rate of 67, normal MD interval, normal QRS, normal QT/QTC, no ST segment elevations or depressions, inverted T-wave on leads I, aVL, V5, and V6. Flat T-wave in lead II. Compared to the EKG done on 11/14/2024 the T-wave abnormalities are new. External Record Review External record reviewed: Inpatient record Chronic Conditions Patient?s care impacted by: Diabetes and Hypertension Discharge Plan Discharge Patient Disposition: Admitted As Inpatient Prescriptions: No Action (DME) blood pressure monitor Kit See Rx Instructions .Route Qty: 1 0RF Rx Instructions: As directed ferrous sulfate 325 mg (65 mg iron) tablet,delayed release (DR/EC) 325 mg PO BID Qty: 180 1RF (DME) recliner See Rx Instructions .Route .MEDSUPPLY Qty: 1 0RF Rx Instructions: As directed sodium bicarbonate 650 mg tablet 1,300 mg PO TID Qty: 540 3RF simethicone [Gas Relief (simethicone)] 180 mg capsule 180 mg PO BID PRN (Reason: abdominal distention) 30 Days Qty: 60 0RF carvedilol 6.25 mg tablet 6.25 mg PO BID Qty: 180 11RF atorvastatin 80 mg tablet 80 mg PO BEDTIME 90 Days Qty: 90 0RF (DME) sitz bath Kit See Rx Instructions .Route Qty: 1 0RF Rx Instructions: As directed (DME) sitz bath Kit See Rx Instructions .Route Qty: 1 0RF Rx Instructions: As directed sevelamer HCl 800 mg tablet 800 mg PO TID Rx Instructions: must administer with a meal/food omeprazole 20 mg Capsule,Delayed Release(Dr/Ec) 20 mg PO DAILY@0630 Qty: 90 0RF Calmol-4 76-10 % Suppository 1 supp MD QID PRN (Reason: rectal bleed) Qty: 24 0RF (DME) bed rail See Rx Instructions .Route .MEDSUPPLY Qty: 1 0RF Rx Instructions: As directed (DME) hand held shower See Rx Instructions .Route .MEDSUPPLY Qty: 1 0RF Rx Instructions: As directed ([facility]) Grab bar Misc See Rx Instructions .Route Qty: 1 0RF Rx Instructions: As directed (DME) pill box twice daily See Rx Instructions .Route .MEDSUPPLY Qty: 1 0RF Rx Instructions: As directed (DME) Shower Chair Misc See Rx Instructions .Route Qty: 1 0RF Rx Instructions: with back hydrocortisone 2.5 % ointment 1 appl topical BID Qty: 28.35 1RF Print Language: Greenlandic
[2025-02-16 11:03] VITALS: BP 176/87; PULSE 62; RESP 16; O2SAT 99
[2025-02-16 11:42] LABS: Basophils Percent Auto 0.7 % (0-2); Eosinophils Absolute Auto 0.1 X10*3/uL (0.0-0.4); Eosinophils Percent Auto 2.2 % (0-4); Hematocrit 37.4 % (37.0-47.0); Hemoglobin 11.7 g/dl (12.0-16.0); Imm Gran Abs Auto 0.01 X10*3/uL (0.00-0.03); Imm Gran Pct Auto 0.2 % (0.0-0.4); Lymphocytes Absolute Auto 1.1 X10*3/uL (1.2-4.9); Lymphocytes Percent Auto 25.9 % (20-40); Mean Corpuscular HGB Conc 31.3 g/dl (31.0-35.0); Mean Corpuscular Hemoglobin 30.3 pg (27.0-33.0); Mean Corpuscular Volume 96.9 fL (80.0-98.0); Mean Platelet Volume 10.4 fL (9.4-12.3); Monocytes Absolute Auto 0.3 X10*3/uL (0.1-1.2); Monocytes Percent Auto 8.2 % (2-11); Neutrophils Absolute Auto 2.6 x10*3/uL (2.0-8.3); Neutrophils Percent Auto 62.8 % (45-73); Platelet Count 136 X10*3/uL (160-400); Red Blood Count 3.86 X10*6/uL (4.20-5.50); Red Cell Distribution Width 14.6 % (11.0-16.0)
[2025-02-16 11:45] LABS: White Blood Count 4.2 X10*3/uL (4.8-10.8)
[2025-02-16 12:05] LABS: Alanine Aminotransferase 14 U/L (0-31); Albumin Level 4.1 g/dL (3.5-5.0); Alkaline Phosphatase 97 U/L (39-117); Anion Gap 18 (12-20); Aspartate Amino Transferase 12 U/L (5-31); Bilirubin Total 0.4 mg/dL (0.0-1.0); Blood Urea Nitrogen 125 mg/dL (9-16); Calcium 8.8 mg/dL (8.4-10.2); Carbon Dioxide 11 mmol/L (22-29); Chloride 125 mmol/L (96-108); Creatinine Clr Calc Pharmacy 6.3; Estimated Glomerular Filt Rate 4; Glucose Random 73 mg/dL (60-115); Potassium 5.9 mmol/L (3.3-5.1); Sodium 148 mmol/L (135-145); Total Protein 7.3 g/dL (6.5-8.0)
--- OUTSIDE RECORDS SUMMARY | 2025-02-16 12:39 | XMS_ITS | Clinical Summary ---
Author Organization [facility] Address [address] [place] [address] Care Team Providers Care Railway Switch Operator Name Role Phone Emanuel Scruggs Primary Care Provider [phone] Allergies Active Allergy Reactions Criticality Noted Date [...] Encounters Date Type Department Care Team Description 02/02/2025 Orders Only [facility] Transplant Department [address] [place] [address] Kimber Fallon RN End stage renal disease (HCC) (Primary Dx); Hypertension secondary to other renal disorders; Pre-transplant evaluation for kidney transplant 02/02/2025 Telephone [facility] Transplant Department [address] [place] [address] Kimber Fallon RN 01/16/2025 Documentation [facility] Transplant Department [address] [place] [address] Kimber Fallon, RN ABO Dual Validation 01/16/2025 Documentation [facility] Transplant Department [address] [place] [address] Kimber Fallon, LEROY 01/14/2025 Orders Only [facility] Transplant Department [address] [place] [address] Tito Patricio MD 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) 01/12/2025 Results Follow-Up [facility] Renal Transplant [address] [place] [phone] Kimber Fallon, LEROY 01/12/2025 Documentation [facility] Transplant Department [address] [place] [phone] Kimber Fallon, RN ABO Dual Validation 01/06/2025 Orders Only [facility] Transplant Department [address] [place] [phone] Kimber Fallon RN End stage renal disease (HCC) (Primary Dx); Pre-transplant evaluation for kidney transplant 12/30/2024 Orders Only [facility] Transplant Department [address] [place] [phone] Tito Patricio MD End stage renal disease (HCC) (Primary Dx) 12/30/2024 Orders Only [facility] Transplant Department [address] [place] [phone] Tito Patricio MD 12/25/2024 Telephone [facility] Transplant Department [address] [place] [phone] Kimber Fallon, LEROY 12/24/2024 Telephone [facility] Transplant Department [address] [place] [phone] Kimber Fallon RN 12/24/2024 Telephone [facility] Transplant Department [address] [place] [phone] Kimber Fallon RN 12/01/2024 Documentation [facility] Transplant Department [address] [place] [address] Kimber Fallon RN Kidney Eval from Last 3 Months Family History Medical [...] Info) Description 08/19/2025 1:40 PM EST Follow-Up [facility] Renal Transplant [address] [place] [address] Tito Patricio MD [address] [place] [phone] 08/19/2025 2:00 PM EST Social Work [facility] Renal Transplant [address] [place] [address] Tito Patricio MD [address] [place] [phone] [facility] Health Maintenance Due Date Last [...] Completed 09/01/2024 Procedures * Due to [place] state law, [...] Health Maintenance Results * Due to [place] state law, [...] - 400 10*3/uL 09/01/2024 3:19 PM EST [facility] MPV 11.0 7.5 - 12.5 fL 09/01/2024 3:19 PM EST [facility] Neutrophil % 61.9 % 09/01/2024 3:19 PM EST [facility] Immature Grans % 0.3 0.0 - 0.9 % 09/01/2024 3:19 PM EST [facility] Lymphocyte % 29.6 % 09/01/2024 3:19 PM EST [facility] Monocyte % 5.4 % 09/01/2024 3:19 PM EST [facility] Eosinophil % 2.3 % 09/01/2024 3:19 PM EST [facility] Basophil % 0.5 % 09/01/2024 3:19 PM EST [facility] Neutrophil # 3.81 1.50 - 7.80 10*3/uL 09/01/2024 3:19 PM EST [facility] Immature Grans # <0.03 <=0.03 10*3/uL 09/01/2024 3:19 PM EST [facility] Lymphocyte # 1.80 0.85 - 3.90 10*3/uL 09/01/2024 3:19 PM EST [facility] Monocyte # 0.30 0.20 - 0.95 10*3/uL 09/01/2024 3:19 PM EST [facility] Eosinophil # 0.10 0.02 - 0.50 10*3/uL 09/01/2024 3:19 PM EST [facility] Basophil # <0.03 0.00 - 0.20 10*3/uL 09/01/2024 3:19 PM EST [facility] nRBC % 0.0 /100 WBCs 09/01/2024 3:19 PM EST [facility] nRBC # <0.01 <0.01 10*3/uL 09/01/2024 3:19 PM EST [facility] Blood Structure of peripheral vein / Unknown Venipuncture / Unknown 09/01/2024 2:46 PM EST 09/01/2024 3:10 PM EST us Tito Patricio MD LAB BLOOD ORDERABLES Final Resu lt [facility] [address] [place] [address], * Hepatitis C Antibody w/Reflex to PCR (09/01/2024 2:46 PM EST) Hepatitis C Antibody NON-REACT JILL NON-REACT JILL 09/02/2024 7:23 AM EST [facility] Comment: HCV antibody was non-reactive. There is no laboratory evidence of HCV infection. In most cases, no further action is required. However, if recent HCV exposure is suspected, a test for HCV RNA (test code 18376) is suggested. For additional information please refer to http://education.ActionRun/faq/IJF10d3 (This link is being provided for informational/ educational purposes only.) Blood Structure of peripheral vein / Unknown Venipuncture / Unknown 09/01/2024 2:46 PM EST 09/01/2024 3:07 PM EST Narrative [facility] 09/02/2024 7:23 AM EST [facility] Received Date:[id number] us Tito Patricio MD LAB BLOOD ORDERABLES Final Resu lt Performing Organization Address City/[facility]/ZIP Co de Phone Number DEJAN KIVALINA [address] [facility] [address], [place] [address], [place] [phone] [facility] [address] [facility] [address], [place] [address], [place] [phone] * (ABNORMAL) Phosphorus (09/01/2024 2:46 PM EST) Phosphorus 8.2(H) 2.5 - 4.5 mg/dL 09/01/2024 3:52 PM EST [facility] Blood Structure of peripheral vein / Unknown Venipuncture / Unknown 09/01/2024 2:46 PM EST 09/01/2024 3:10 PM EST us Tito Patricio MD LAB BLOOD ORDERABLES Final Resu lt [facility] [address] [place] [address], * (ABNORMAL) PTH, Intact (without Calcium) (09/01/2024 2:46 PM EST) Parathyroid Hormone, Intact 1488(H) 16 - 77 pg/mL 09/03/2024 7:22 AM EST [facility] Comment: Interpretive Guide ?Intact PTH ? Calcium [...] EST 09/01/2024 3:10 PM EST Narrative [facility] - 09/03/2024 7:22 AM EST [facility] Received Date: Tito Patricio MD LAB BLOOD ORDERABLES Final Resu lt [facility] [address] [facility] [address], [place] [address], [facility] [address] [facility] [address], [place] [address], [place] [phone] from Last 3 Months or Most Recently Relevant to Health Maintenance Insurance [facility] [employer] Care Teams Railway Switch Operator Relationship Specialty Start Date End Date Emanuel Scruggs [address] [place] [id number] [facility] - General 03/22/17
[2025-02-16] MEDS: Sodium Zirconium Cyclosilicate 10 GM POWD.PACK PO (13:22)
--- NOTE | 2025-02-16 14:02 | P.CONNP_ITS ---
History of Present Illness Reason for Consult Consult date: 02/16/25 Chief Complaint Chief complaint: missed dialysis History of Present Illness Narrative: Patient is a 59 y/o female with a medical history of ESRD on HD, HTN, CAD with h/o NSTEMI, HLD, dysphagia, and secondary hyperparathyroidism, anemia of chronic disease. 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 patient is alert at bedside and states she feels in her normal state of health. states she was having diarrhea on and off for two weeks and this is why she did not attend her dialysis sessions states she plans to re-start her outpatient dialysis when she is discharged, states she is willing to get HD in hospital as she was told the wait list for dialysis was long today and so will likely miss another session. states she began dialysis in November of this year. Has a left permcath in place, no fistula yet. denies chest pain, dizziness, shortness of breath, lethargy/confusion, tremors, pruritus, cramping. QUENTIN shows new T wave inversion in lateral leads, NSR she reports her diarrhea has resolved. potassium 5.9, sodium 148, serum bicarb 11, AG 18, BUN 125, creatinine 9.83 H&H 11.7 & 37.4 Review of Systems Constitutional: Denies fatigue, Denies fever(s), Denies malaise and Denies weakness Cardiovascular: Denies chest pain, Denies leg edema and Denies dyspnea Respiratory: Denies dyspnea Gastrointestinal: Denies abdominal pain, Reports diarrhea (reports this has resolved. ), Denies nausea and Denies vomiting Genitourinary: Denies hematuria and Denies dysuria Musculoskeletal: Denies arthralgias and Denies muscle cramps Skin/Breast: Denies rash Denies tremor(s) and Denies weakness Comments: denies tremors, muscle cramping Endocrine: Denies fatigue PMFSH Past Medical History Medical History (Updated 02/16/25 @ 14:36 by Tho Olivas MD) ESRD (end stage renal disease) on dialysis Back pain Asthma History of blood transfusion NSTEMI (non-ST elevated myocardial infarction) Atrial fibrillation Acute on chronic kidney failure Secondary hyperparathyroidism (of renal origin) Anemia in chronic kidney disease (CKD) Chronic systolic (congestive) heart failure Cardiomyopathy CKD (chronic kidney disease) stage 5, GFR less than 15 ml/min Essential hypertension Normocytic anemia Family History Family History Father Throat cancer Mother Hypertension Daughter In good health Daughter In good health Sister In good health Family/Other Breast cancer Surgical History Surgical History History of esophagogastroduodenoscopy (EGD) Hx of colonoscopy History of surgery Status post dilation and curettage History of abdominal surgery History of extraction of renal calculus History of tubal ligation Social History Social History Household Members: None Housing: Other Housing Other:: studio Are you a primary caregiver assisted living to a significant other at home: No Do you presently have visiting nurse or other home services: Yes (CAMP NURSE/VNA) Unable to assess alcohol history related to: Unknown Alcohol intake: never Comment: Pt declining bed alarm Patient Tobacco Use Status: Former Tobacco user Tobacco use type: Cigarette Years Smoked: 30 +/- e-Cigarette/Vaping Use: Never Used Second Hand Smoke Exposure: No Advance Directives: Yes Advance Directives on File: Yes Advance Directives Date on File: 11/21/23 service: No Current occupational status: unemployed Cognitive needs: No Hearing needs: No Vision needs: No Meds Allergies Allergy/AdvReac Type Severity Reaction Status Date / Time Penicillins Allergy Intermediate RASH Verified 02/16/25 09:48 Home Medications ?Medication ?Instructions ?Recorded ?Confirmed ?Last Taken ?Type sevelamer HCl 800 mg tablet 800 mg PO TID 09/14/24 12/18/24 11/14/24 History Physical Exam Vital Signs: Last Vital Signs Temp 97.7 F 02/16/25 09:44 Pulse 62 02/16/25 11:03 Resp 16 02/16/25 11:03 BP 176/87 H 02/16/25 11:03 Pulse Ox 99 02/16/25 11:03 O2 Del Method Room Air 02/16/25 11:03 BMI result Body Mass Index 28.5 Const General: no acute distress, alert and awake Resp Effort & Inspection: normal respiratory effort and able to speak in complete sentences Auscultation: clear to auscultation bilaterally Cardio Rate: regular rate Rhythm: regular rhythm Heart sounds: S1 normal heart sound present and S2 normal heart sound present GI Palpation (GI): Soft to palpation and nontender Skin Rashes: no rashes Neuro Other: no asterixis, no tremor Extrem General: No edema and No pedal edema Results Lab Results 02/16/25 11:33 02/16/25 11:33 Lab results: Chemistry 02/16/25 11:33 Sodium 148 H Potassium 5.9 H D Carbon Dioxide 11 L BUN 125 H Creatinine 9.83 H* Calcium 8.8 Hematology 02/16/25 11:33 WBC 4.2 L Hgb 11.7 L D Plt Count 136 L Assessment and Plan (1) ESRD (end stage renal disease) on dialysis: Status: Acute Plan ESRD on HD, will get inpatient dialysis given missed 6 sessions, electrolyte and acid-base abnormalities, uremia. has left permcath in place without swelling/erythema patient does not appear to be significantly fluid overloaded despite missed HD sessions, possibly due to diarrhea H&H 11.7 and 37, no indication for procrit at this time will check phosphorous levels recommend low potassium, low phosphorous diet fluid restriction 1.5L/24 hours recommend regular blood pressure checks, I&O monitoring continue supportive care will continue to follow Discussed with Dr Miranda. Procedures Date of Service Date of Service: 02/16/25
[2025-02-16 15:20] VITALS: BP 148/77; PULSE 53; RESP 18; O2SAT 100
[2025-02-16 15:58] LABS: Phosphorus 8.2 mg/dL (2.7-4.5)
--- NOTE | 2025-02-16 17:03 | PM.IMHP ---
History of Present Illness Date of Service: 02/16/25 Chief Complaint: Missed dialysis 59-year-old female with a past medical history of HTN, HLD, CKD stage 5, dysphagia, CAD, secondary hyperparathyroidism, anemia of chronic disease presented to the hospital today after missing 2 weeks of dialysis. she was weak and had vomiting with diarrhea. No chest pain, palpitations, SOB, nausea, vomiting, diarrhea or urinary symptoms anymore. blood work showing elevated Na 148, K of 5.9 with Cr of 9.8 and BUN 125. admitted for urgent dialysis and nephrology follow up. Review of Systems Review of Systems: No fever, chills but has weakness No chest pain, palpitation No shortness of breath or coughing No abdominal pain, nausea or vomiting No urinary symptoms No any rash or wounds PMFSH Medical History ESRD (end stage renal disease) on dialysis Back pain Asthma History of blood transfusion NSTEMI (non-ST elevated myocardial infarction) Atrial fibrillation Acute on chronic kidney failure Secondary hyperparathyroidism (of renal origin) Anemia in chronic kidney disease (CKD) Chronic systolic (congestive) heart failure Cardiomyopathy CKD (chronic kidney disease) stage 5, GFR less than 15 ml/min Essential hypertension Normocytic anemia Family History Father Throat cancer Mother Hypertension Daughter In good health Daughter In good health Sister In good health Family/Other Breast cancer Surgical History History of esophagogastroduodenoscopy (EGD) Hx of colonoscopy History of surgery Status post dilation and curettage History of abdominal surgery History of extraction of renal calculus History of tubal ligation Social History Household Members: None Housing: Apartment Housing Other:: studio Are you a primary lawn care technician to a significant other at home: No Do you presently have visiting nurse or other home services: Yes (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 If so, by whom?: No Do you feel safe in your current relationship?: No Is there a partner from a previous relationship who is making you feel unsafe now?: No Are you made to feel afraid or neglected: No Advance Directives: Yes Advance Directives on File: Yes Advance Directives Date on File: 11/21/23 Recently lost weight without trying: No Nutrition Risks: No Nutritional Risk Patient : No : No service: No Current occupational status: unemployed Cognitive needs: No Hearing needs: No Vision needs: No Meds Allergies Allergy/AdvReac Type Severity Reaction Status Date / Time Penicillins Allergy Intermediate RASH Verified 02/16/25 09:48 Active Medications: Current Medications Acetaminophen (Acetaminophen 325 Mg Tablet) 650 mg PO Q6H PRN PRN Reason: Pain, Mild 1-3,fever,headache Calcium Carbonate (Calcium Carbonate 750 Mg Tab.Chew) 750 mg PO Q4H PRN PRN Reason: Heartburn Heparin Sodium (Porcine) (Heparin Sodium,Porcine 5,000 Unit/Ml Vial) 5,000 unit INTRACATH MOWEFR@1645 [facility] Magnesium Hydroxide (Milk Of Magnesia 30 Ml Oral.Susp) 30 ml PO DAILY PRN PRN Reason: Constipation Melatonin (Melatonin 3 Mg Tablet) 6 mg PO BEDTIME PRN PRN Reason: Insomnia Sodium Chloride (0.9 % Sodium Chloride Flush 3 Ml Syringe) 3 ml IVFLUSH QSHIFT [facility] Home Medications ?Medication ?Instructions ?Recorded ?Confirmed ?Last Taken ?Type sevelamer HCl 800 mg tablet 800 mg PO TID 09/14/24 02/16/25 02/15/25 History Physical Exam Vital Signs and Narrative: Vital Signs: Last Vital Signs Temp 97.7 F 02/16/25 09:44 Pulse 53 02/16/25 15:20 Resp 18 02/16/25 15:20 BP 148/77 H 02/16/25 15:20 Pulse Ox 100 02/16/25 15:20 O2 Del Method Room Air 02/16/25 15:20 BMI result Body Mass Index 28.5 Const: Other: Constitutional : interactive, not in distress Cardiovascular : no JVP, no lower extremity edema Respiratory : bilateral chest movement, not in resp distress Gastrointestinal: soft, lax, Non tender Vascular: Permacath in place Skin : Warm, Dry Neurological : Alert & oriented , No focal deficit Results Labs 02/16/25 11:33 02/17/25 07:25 Labs: Laboratory Results - last 24 hr 02/16/25 02/16/25 11:33 15:13 MCV 96.9 MCH 30.3 MCHC 31.3 RDW 14.6 Plt Count 136 L MPV 10.4 Immature Gran % (Auto) 0.2 Neut % (Auto) 62.8 Lymph % (Auto) 25.9 [place] % (Auto) 8.2 Eos % (Auto) 2.2 Baso % (Auto) 0.7 Lymph # (Auto) 1.1 L [place] # (Auto) 0.3 Eos # (Auto) 0.1 Baso # (Auto) 0.0 Abs Immat Gran (auto) 0.01 Absolute Neuts (auto) 2.6 Absolute Nucleated RBC 0.000 Nucleated RBC % (auto) 0.0 Anion Gap 18 Estim Creat Clear Calc 6.3 Estimated GFR 4 Random Glucose 73 Calcium 8.8 Phosphorus 8.2 H Total Bilirubin 0.4 AST 12 ALT 14 Alkaline Phosphatase 97 Total Protein 7.3 Albumin 4.1 Assessment and Plan (1) Noncompliance of patient with renal dialysis: Status: Acute (2) ESRD (end stage renal disease) on dialysis: Status: Acute (3) Acute hyperkalemia: Status: Acute Plan 59-year-old female with a past medical history of HTN, HLD, CKD stage 5, dysphagia, CAD, secondary hyperparathyroidism, anemia of chronic disease presented to the hospital today after missing 2 weeks of dialysis. ESRD on HD needs dialysis non complaince Nephrology consult placed plan for dialysis Acute hyperkalemia Lokelma given To do dialysis acute hypernatremia to be corrected with dialysis Hypertension Hold amlodipine CAD Carvedilol. Statin DVT prophylaxis with heparin Full code reason for continued hospitalization: HD Quality Stroke Does the patient have a stroke diagnosis?: No VTE Prior VTE?: No VTE Risk Level:: Medical - moderate - high VTE Device Contraindication: N/A - Device Ordered VTE Drug Contraindication: N/A - Med Ordered
[2025-02-16 19:35] VITALS: BP 168/82; PULSE 71; RESP 18; TEMP 36.3; O2SAT 100
[2025-02-16] MEDS: Acetaminophen 325 MG TABLET 650 MG PO (20:50)
[2025-02-16] MEDS: Heparin Sodium,Porcine 5,000 UNIT/ML VIAL 5000 UNIT SUBCUT (20:51)
--- NOTE | 2025-02-16 20:55 | PHA.MEDREC ---
Addendum entered by Kierra Vega RPh 02/16/25 21:09: Reviewed by pharmacist Original Note: Pharmacy Consult ? Medication Reconciliation Pharmacy has completed the medication reconciliation. Spoke to patient through weed sprayer service to [employer]. Patient states she is no longer using Calmol-4 DE. patient states she last had her medications yesterday.
[2025-02-16 23:49] VITALS: BP 178/86; PULSE 79; RESP 16; TEMP 35.6; O2SAT 100
[2025-02-17] VITALS: BP 148/84
[2025-02-17] MEDS: Acetaminophen 325 MG TABLET 650 MG PO (03:28)
[2025-02-17 04:00] VITALS: BP 182/96; PULSE 65; RESP 16; TEMP 36.1; O2SAT 100
[2025-02-17] MEDS: amLODIPine Besylate 2.5 MG TABLET PO (04:38)
[2025-02-17 06:09] VITALS: BP 168/86
--- NOTE | 2025-02-17 06:13 | PC.NURSE ---
Pt BP elevated during this shift, Hospitalist J Carlos notified, Amlodipine 2.5mg ordered x1, BP decreased however still remains elevated. Pt stated she has not been taking blood pressure medicine d/t nausea and vomiting.
--- NOTE | 2025-02-17 06:16 | PC.NURSE ---
Pt refusing IV insertion during this shift. Stated I only came for dialysis . Pt educated on need for IV while on med/tele unit however continues to refuse at this time, told this RN maybe later . Will let day RN attempt.
[2025-02-17 07:50] LABS: Blood Urea Nitrogen 85 mg/dL (9-16); Calcium 8.4 mg/dL (8.4-10.2); Creatinine Clr Calc Pharmacy 8.7; Estimated Glomerular Filt Rate 6; Glucose Random 95 mg/dL (60-115)
[2025-02-17 07:58] LABS: Anion Gap 17 (12-20); Carbon Dioxide 17 mmol/L (22-29); Chloride 116 mmol/L (96-108); Potassium 4.5 mmol/L (3.3-5.1); Sodium 145 mmol/L (135-145)
[2025-02-17 08:00] VITALS: BP 161/71; PULSE 72; RESP 18; TEMP 36.1; O2SAT 99
--- NOTE | 2025-02-17 08:45 | MHC.CM.PN ---
CM attempted to meet with Patient but she was unavailable/in HD. CM spoke with Daughter/HCP/Iris at [phone] and addressed IMM with her (original will be mailed certified letter to Iris and a copy is available on the chart for Patient's review). Patient lives alone in an apartment and uses no DME to assist with mobility. 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 Home/resume said services is the goal and CM has initiated and will follow for dc planning. PCP is Dr. Britt Matos and Iris will transport to home at time of dc.
--- NOTE | 2025-02-17 11:22 | W.PM.DNNEP ---
Subjective Subjective Date of Service: 02/17/25 This patient was seen during dialysis. Interval history: Patient is a 59 y/o female with a medical history of ESRD on HD, HTN, CAD with h/o NSTEMI, HLD, dysphagia, and secondary hyperparathyroidism, anemia of chronic disease. Nephrology consulted for management of ESRD [facility], Dr Betancur is wrapping machine helper per pt). states she frequently has cramps during dialysis- cramping today as well she states she plans to attend her dialysis sessions regularly once she is out of the hospital, only missed due to diarrhea and feeling unwell. States she makes a lot of urine. Physical Exam Vital Signs: Vital Signs: Last Vital Signs Temp 97.0 F 02/17/25 08:00 Pulse 72 02/17/25 08:00 Resp 18 02/17/25 08:00 BP 161/71 H 02/17/25 08:00 Pulse Ox 99 02/17/25 08:00 O2 Del Method Room Air 02/17/25 08:00 BMI result Body Mass Index 28.5 Const: General: no acute distress, alert and awake Resp: Effort & Inspection: normal respiratory effort and able to speak in complete sentences Auscultation: clear to auscultation bilaterally Cardio: Rate: regular rate Rhythm: regular rhythm Heart sounds: S1 normal heart sound present and S2 normal heart sound present GI: Palpation (GI): Soft to palpation and nontender Skin: Rashes: no rashes Neuro: Other: no asterixis, no tremor Extrem: General: No edema and No pedal edema Assessment & Plan Assessment and plan (1) ESRD (end stage renal disease) on dialysis: Status: Acute Plan ESRD on HD- HD today due to short session yesterday complained for cramping during HD- will start gabapenin 100mg PO TID for symptom management left permcath in place without swelling, erythema or drainage pateint appears euvolemic phos elevated at 8.2, she will continue revnela with meals and compliance with outpatient dialysis H&H 11.7 & 34.7m no indication for procrit at this time metabolic acidosis improving discussed importance of compliance with outpatient dialysis- patient is agreeable and plans to attend next HD session tomorrow. Discussed with Dr Miranda. Time Spent With Patient Time: Total time managing care of this patient today ____ minutes. Procedures Date of Service Date of Service: 02/17/25
--- NOTE | 2025-02-17 11:46 | P.DS_ITS ---
DS: Providers Provider Date of Service: 02/17/25 Date of admission: 02/16/25 14:44 Date of discharge: 02/17/25 Primary care physician: Britt De MD Consults: 02/16/25 14:32 Consult to Nephrology Routine Consulting Provider: [facility] Reason for consultation: esrd -missed hd. Has provider been notified: No DS: Diagnosis Discharge Diagnosis (1) Noncompliance of patient with renal dialysis: Status: Acute (2) ESRD (end stage renal disease) on dialysis: Status: Acute (3) Acute hyperkalemia: Status: Acute (4) Acute hypernatremia: Status: Acute DS: Summary Hospital Course Hospital Course: Admission note HPI 59-year-old female with a past medical history of HTN, HLD, CKD stage 5, dysphagia, CAD, secondary hyperparathyroidism, anemia of chronic disease presented to the hospital today after missing 2 weeks of dialysis. she was weak and had vomiting with diarrhea. No chest pain, palpitations, SOB, nausea, vomiting, diarrhea or urinary symptoms anymore. blood work showing elevated Na 148, K of 5.9 with Cr of 9.8 and BUN 125. admitted for urgent dialysis and nephrology follow up. Hospital course The patient was admitted for ESRD on HD complicated with acute hyperkalemia and hypernatremia needs dialysis as she is non complaince. Nephrology consulted and she had 2 sessions of dialysis. plan to discharge home and follow with her outpatient dialysis as scheduled MWF. prescribed Gabapenting for reported neuropathy. Discharge plan Follow with dialysis schedule MWF start Gabapentin for neuropathy The patient made quicker than expected recovery and will not need 2 overnight hospital stay. Time Attestation Discharge Coordination Time (in mins): 37 Quality: Safe Use of Opioids Does Pt have an Active Cancer Diagnosis on the Problem List?: No Quality: Stroke Does the patient have a stroke diagnosis?: No Physical Exam Vital Signs: Vital Signs: Last Vital Signs Temp 97.0 F 02/17/25 08:00 Pulse 72 02/17/25 08:00 Resp 18 02/17/25 08:00 BP 161/71 H 02/17/25 08:00 Pulse Ox 99 02/17/25 08:00 O2 Del Method Room Air 02/17/25 08:00 BMI result Body Mass Index 28.5 DS: Data Data Completed and Pending Completed studies during hospitalization [Text1]: Procedures Excision of Duodenum, Via Natural or Artificial Opening Endoscopic, Diagnostic (11/09/23) Excision of Esophagogastric Junction, Via Natural or Artificial Opening Endoscopic, Diagnostic (11/09/23) Excision of Sigmoid Colon, Via Natural or Artificial Opening Endoscopic, Diagn ostic (09/06/24) Excision of Transverse Colon, Via Natural or Artificial Opening Endoscopic, Diagnostic (09/06/24) Fluoroscopy of Superior Vena Cava, Guidance (11/15/24) Insertion of Infusion Device into Superior Vena Cava, Percutaneous Approach (11/15/24) Insertion of Infusion Device into Upper Vein, Percutaneous Approach (09/14/24) Insertion of Tunneled Vascular Access Device into Chest Subcutaneous Tissue and Fascia, Percutaneous Approach (11/15/24) Inspection of Lower Intestinal Tract, Via Natural or Artificial Opening Endoscopic (11/09/23) Inspection of Upper Intestinal Tract, Via Natural or Artificial Opening Endoscopic (09/06/24) Performance of Urinary Filtration, Intermittent, Less than 6 Hours Per Day (11/15/24) Transfusion of Nonautologous Red Blood Cells into Peripheral Vein, Percutaneous Approach (11/15/24) Labs on day of discharge: Laboratory Results - last 24 hr 02/16/25 02/16/25 02/17/25 11:33 15:13 07:25 Sodium 148 H 145 Potassium 5.9 H D 4.5 D Chloride 125 H D 116 H Carbon Dioxide 11 L 17 L Anion Gap 18 17 BUN 125 H 85 H Creatinine 9.83 H* 7.13 H* Estim Creat Clear Calc 6.3 8.7 Estimated GFR 4 6 Random Glucose 73 95 Calcium 8.8 8.4 Phosphorus 8.2 H Total Bilirubin 0.4 AST 12 ALT 14 Alkaline Phosphatase 97 Total Protein 7.3 Albumin 4.1 Discharge Plan Discharge Anticipated Discharge Date/Time: 02/17/25 11:43 Patient Disposition: Home Health Service Discharge Diagnosis: End stage renal disease Referrals: Britt Chavez MD [Primary Care Provider] - 1 Week Discharge Medications: New gabapentin 100 mg Capsule 100 mg PO TID Qty: 90 0RF Continued (DME) blood pressure monitor Kit See Rx Instructions .Route Qty: 1 0RF Rx Instructions: As directed ferrous sulfate 325 mg (65 mg iron) tablet,delayed release (DR/EC) 325 mg PO BID Qty: 180 1RF (DME) recliner See Rx Instructions .Route .MEDSUPPLY Qty: 1 0RF Rx Instructions: As directed sodium bicarbonate 650 mg tablet 1,300 mg PO TID Qty: 540 3RF simethicone [Gas Relief (simethicone)] 180 mg capsule 180 mg PO BID PRN (Reason: abdominal distention) 30 Days Qty: 60 0RF carvedilol 6.25 mg tablet 6.25 mg PO BID Qty: 180 11RF atorvastatin 80 mg tablet 80 mg PO BEDTIME 90 Days Qty: 90 0RF ([facility]) sitz bath Kit See Rx Instructions .Route Qty: 1 0RF Rx Instructions: As directed ([facility]) sitz bath Kit See Rx Instructions .Route Qty: 1 0RF Rx Instructions: As directed sevelamer HCl 800 mg tablet 800 mg PO TID Rx Instructions: must administer with a meal/food omeprazole 20 mg Capsule,Delayed Release(Dr/Ec) 20 mg PO DAILY@0630 Qty: 90 0RF ([facility]) bed rail See Rx Instructions .Route .MEDSUPPLY Qty: 1 0RF Rx Instructions: As directed ([facility]) hand held shower See Rx Instructions .Route .MEDSUPPLY Qty: 1 0RF Rx Instructions: As directed ([facility]) Grab bar Misc See Rx Instructions .Route Qty: 1 0RF Rx Instructions: As directed ([facility]) pill box twice daily See Rx Instructions .Route .MEDSUPPLY Qty: 1 0RF Rx Instructions: As directed ([facility]) Shower Chair Misc See Rx Instructions .Route Qty: 1 0RF Rx Instructions: with back hydrocortisone 2.5 % ointment 1 appl topical BID Qty: 28.35 1RF Discharge Orders: Discharge Order (Routine); Ordered 02/17/25 Ordered By: Wili Schroeder Diet: Low salt diet Activity on Discharge: As tolerated Stand Alone Forms: Patient Portal Discharge page Print Language: Peruvian Care Plan Goals: Follow with dialysis schedule MWF start Gabapentin for neuropathy Health Concerns: Need of dialysis Neuropathy Plan of Treatment: Gabapentin Assessment: as above
--- NOTE | 2025-02-17 12:02 | MHC.CM.PN ---
Patient has been medically cleared for dc to home today, self care. [employer] services and HD should resume as before.
== END 2025-02-17 14:25 | disposition home or self-care (01) | DRG 291 ==
LOC: HO.ED 14:36 → HO.EDOVER 14:46 → HO.IMC 17:08
PROVIDERS: Nurse Practitioner Family; Admitting Provider Internal Medicine; Emergency Provider Emergency Medicine Emergency Medical Services; PCP Internal Medicine; Visit Provider Student in an Organized Health Care Education/Training Program
DX: I13.2 Hypertensive heart and chronic kidney disease with heart failure and with stage 5 chronic kidney disease, or end stage renal disease (principal); N18.6 End stage renal disease; N25.81 Secondary hyperparathyroidism of renal origin; E87.0 Hyperosmolality and hypernatremia; I50.22 Chronic systolic (congestive) heart failure; Z99.2 Dependence on renal dialysis; I42.9 Cardiomyopathy, unspecified; Z91.158 Patient's noncompliance with renal dialysis for other reason; D63.1 Anemia in chronic kidney disease; I25.10 Atherosclerotic heart disease of native coronary artery without angina pectoris; E87.5 Hyperkalemia; Z87.891 Personal history of nicotine dependence; Z79.899 Other long term (current) drug therapy
CPT/HCPCS: 36415; 80048; 80053; 84100; 85025; 90999; 93005; 99222; 99285; J1644

== ENCOUNTER → 2025-02-16 09:55 | Outpatient (BNV) | payer OTHER, SELFPAY | PROVIDERS: Admitting Provider Internal Medicine; Emergency Provider Emergency Medicine Emergency Medical Services; PCP Internal Medicine; Visit Provider Internal Medicine Cardiovascular Disease | DX: R94.31 Abnormal electrocardiogram [ECG] [EKG] (principal); R79.89 Other specified abnormal findings of blood chemistry | CPT/HCPCS: 93010 ==

== ENCOUNTER → 2025-02-16 11:02 | Outpatient (BNV) | payer OTHER, SELFPAY | PROVIDERS: Emergency Provider Emergency Medicine Emergency Medical Services; PCP Internal Medicine; Visit Provider Nurse Practitioner Family | DX: N18.6 End stage renal disease (principal); Z99.2 Dependence on renal dialysis | CPT/HCPCS: 90935 ==

== ENCOUNTER → 2025-02-16 14:44 | Outpatient (BNV) | payer OTHER, SELFPAY | PROVIDERS: Admitting Provider Internal Medicine; Emergency Provider Emergency Medicine Emergency Medical Services; PCP Internal Medicine; Visit Provider Student in an Organized Health Care Education/Training Program | DX: N18.6 End stage renal disease (principal); Z99.2 Dependence on renal dialysis; E87.5 Hyperkalemia; Z91.158 Patient's noncompliance with renal dialysis for other reason; E87.0 Hyperosmolality and hypernatremia | CPT/HCPCS: 99223; 99239 ==

== ENCOUNTER → 2025-03-03 23:59 | Outpatient (BNV) | payer OTHER, SELFPAY | PROVIDERS: PCP Internal Medicine; Visit Provider Internal Medicine Nephrology | DX: N18.6 End stage renal disease (principal) | CPT/HCPCS: 90962 ==

== ENCOUNTER 2025-03-05 11:03 | Outpatient (AMB) | payer OTHER, SELFPAY ==
--- NOTE | 2025-03-05 11:05 | MHC.PC.OV ---
Vital Signs 03/05/25 11:12 Height 5 ft 5 in Weight 171 lb 6 oz BMI 28.5 BP 110/78 Blood Pressure Location Lt brachial Position Sitting Pulse 86 Pulse Source Pulse Oximeter Temp 97.8 F Temp Source Temporal Artery Scan Pulse Oximetry (%) 97 Oxygen Delivery Method Room Air Intake Visit Reasons: [facility] 02/17 ESRD/Hyperkalemia [employer] Packages Leak Tester Required: Yes Semiconductor Packages Leak Tester Language: Quality Technician Fiberglass Name: pt refused daughter interpert Accompanied by: Daughter Allergies Penicillins Allergy (Intermediate, Verified 03/17/25 09:37) RASH Medication List - Last Reconciled 03/05/25 by DAVIS Mulligan atorvastatin 80 mg PO BEDTIME 90 days [bed rail As directed] blood pressure monitor As directed carvedilol 6.25 mg PO BID ferrous sulfate 325 mg PO BID gabapentin 100 mg PO TID Grab bar As directed [hand held shower As directed] hydrocortisone 2.5% 1 appl topical BID omeprazole 20 mg PO DAILY@0630 [pill box twice daily As directed] [recliner As directed] sevelamer HCl 800 mg PO TID Shower Chair with back simethicone (Gas Relief (simethicone)) 180 mg PO BID PRN 30 days sitz bath As directed sitz bath As directed sodium bicarbonate 1,300 mg (2 x 650 mg) PO TID Tobacco use date assessed: 03/05/25 Dental Screening Dental Screen Date: 03/05/25 HPI [facility] 02/17 ESRD/Hyperkalemia HPI Details 59-year-old female with a past medical history of NSTEMI, end-stage renal disease on dialysis M/W/F, hyperparathyroidism CKD and anemia cardiomyopathy hypertension asthma GI bleed. Patient is presenting for post hospital admission acute hyperkalemia and hypernatremia due to missing 6 sessions of dialysis. Nephrology was consulted and she received 2 sessions of dialysis. The patient was discharged home with plans to follow up with outpatient dialysis as scheduled MWF. She was also prescribed gabapentin for reports of neuropathy in the hospital. Patient reports following up with outpatient dialysis. Reports that she had a treatment yesterday. She reports dizziness post dialysis treatments that will gradually subsides. Denies chest pain shortness of breath or heart palpitation. Denies abdominal pain or change in bowel habits. Patient reports that she is starting to get on the transplant list. Reports that she was still that she needs to have a colonoscopy before. [facility] Medical History (Updated 03/29/25 @ 20:21 by DAVIS Mulligan) ESRD (end stage renal disease) on dialysis Cardiomyopathy Noncompliance of patient with renal dialysis ESRD (end stage renal disease) on dialysis Back pain Asthma History of blood transfusion NSTEMI (non-ST elevated myocardial infarction) Atrial fibrillation Acute on chronic kidney failure Secondary hyperparathyroidism (of renal origin) Anemia in chronic kidney disease (CKD) Chronic systolic (congestive) heart failure CKD (chronic kidney disease) stage 5, GFR less than 15 ml/min Essential hypertension Normocytic anemia Surgical History History of esophagogastroduodenoscopy (EGD) Hx of colonoscopy History of surgery Status post dilation and curettage History of abdominal surgery History of extraction of renal calculus History of tubal ligation Family History Father Throat cancer Mother Hypertension Daughter In good health Daughter In good health Sister In good health Family/Other Breast cancer Social History Household Members: None Housing: Apartment Housing Other:: studio Are you a primary family day carer to a significant other at home: No Do you presently have visiting nurse or other home services: Yes ([employer]/[facility]) Unable to assess alcohol history related to: Unknown Alcohol intake: never Comment: Pt declining bed alarm Patient Tobacco Use Status: Former Tobacco user Tobacco use type: Cigarette Years Smoked: 30 +/- e-Cigarette/Vaping Use: Never Used Second Hand Smoke Exposure: No Advance Directives Date on File: 11/21/23 service: No Current occupational status: unemployed Cognitive needs: No Hearing needs: No Vision needs: No Questionnaire PHQ-9 Over the last 2 weeks, how often have you been bothered by any of the following problems? 1. Little interest or pleasure in doing things: several days 2. Feeling down, depressed, or hopeless: not at all 3. Trouble falling or staying asleep, or sleeping too much: several days 4. Feeling tired or having little energy: several days 5. Poor appetite or overeating: not at all 6. Feeling bad about yourself - or that you are a failure or have let yourself or your family down: not at all 7. Trouble concentrating on things, such as reading the newspaper or watching television: not at all 8. Moving or speaking so slowly that other people could have noticed. Or the opposite - being so fidgety or restless that you have been moving around a lot more than usual: several days 9. Thoughts that you would be better off or of hurting yourself in some way: not at all Total score: 4 Source: Developed by Drs. Tarun Fernandez, Ciarra Alfred, Mik Sands and colleagues, with an educational kevan from [employer]. Thrive Questionnaire Date Thrive assessed: 03/05/25 I am a: Patient What is your living situation today?: I have a steady place to live Within the past 12 months, did the food you bought not last and you didn't have the money to get more?: Never true Within the past 12 months, did you worry whether your food would run out before you got money to buy more?: Never true Do you have trouble paying for medicines?: No Do you have trouble getting transportation to medical appointments?: No Do you have trouble paying your heating and electricity bill?: No Do you have trouble taking care of your child, family member or friend?: No Do you have trouble with day-to-day activities such as bathing, preparing meals, shopping, managing finances, etc.?: Yes Are you currently unemployed and looking for a job?: No Are you interested in more education?: No Please select the resources that you would like help with: None Currently or been in a relationship where the following occur: No concerns reported THRIVE Score: 0 AUDIT C Alcohol Use Questionnaire (AUDIT-C) 1. How often do you have a drink containing alcohol?: Never Total Score: 0 PAUL-7 AMB Questionnaire PAUL-7 Date PAUL - 7 assessed: 03/05/25 Feeling nervous, anxious, or on edge: 0 = Not at all Not being able to stop or control worryin = Not at all Worrying too much about different things: 0 = Not at all Trouble relaxin = Several days Being so restless that it is hard to sit still: 0 = Not at all Becoming easily annoyed or irritable: 0 = Not at all Feeling afraid as if something awful might happen: 0 = Not at all Total PAUL-7 score (0-4 normal; 5-9 mild; 10-14 moderate; 15-21 severe): 1 Source: Developed by Drs. Tarun Fernandez, Ciarra Alfred, Mik Sands and colleagues, with an educational kevan from [employer]. Review of Systems Const Denies headache(s) Eyes Denies loss of vision ENT Denies vertigo, Reports dizziness (Post dialysis), Denies headache(s) and Denies sore throat Card Denies chest pain, Denies leg edema and Denies lightheadedness Resp Denies cough, Denies hemoptysis and Denies wheezing GI Denies abdominal pain, Denies melena, Denies constipation, Denies diarrhea and Denies vomiting Reports other (End-stage renal-on dialysis) Musc Denies arthralgias, Denies joint swelling, Denies numbness and Denies tingling Neuro Denies Abnormal speech present, Denies behavioral changes, Denies vertigo, Reports dizziness (Post dialysis), Denies headache(s), Denies loss of vision, Denies memory loss, Denies numbness and Denies tingling Psych Denies anxiety, Denies behavioral changes, Denies depression, Denies memory loss and Denies panic attacks Omega/Lymph Denies easy bleeding and Denies easy bruising Aller/Immun Denies wheezing Physical exam (Primary Care) Vital Signs: Last Vital Signs Temp 97.8 F 03/05/25 11:12 Pulse 86 03/05/25 11:12 BP 110/78 03/05/25 11:12 Pulse Ox 97 03/05/25 11:12 Oxygen Delivery Method Room Air 03/05/25 11:12 BMI result Body Mass Index 28.5 Tobacco/Smoking Status: Tobacco use Status Tobacco use date assessed 03/05/25 03/05/25 11:20 Patient Tobacco Use Status Former Tobacco user 03/05/25 11:06 Tobacco use type Cigarette 03/05/25 11:06 e-Cigarette/Vaping Use Never Used 03/05/25 11:06 PHQ-9: PHQ-9 Score PHQ-9: Total score 4 03/05/25 11:35 Thrive Assessment: Date of Thrive Assessment Date Thrive assessed 03/05/25 03/05/25 11:20 Currently or been in a relationship where the following occur: No concerns reported Const General: healthy appearing, no acute distress, alert and awake Nutritional Appearance: well nourished Orientation/consciousness: oriented to person, oriented to place and oriented to time HENMT Ears: TM's normal bilaterally General nose exam: Normal nasal mucous membranes and turbinates present Eyes Conjunctivae: conjunctivae normal Sclerae: sclerae normal Pupils: Equal, round and reactive pupils present Neck Neck: Yes no lymphadenopathy and Yes no JVD Thyroid: Thyroid normal Carotids: no bruits Chest Chest palpation & inspection: other (Dialysis catheter in place to left chest) Resp Effort & Inspection: normal respiratory effort and not tachypneic Auscultation: no crackles, no rales, no rhonchi and no wheezes Cardio Rate: regular rate Rhythm: regular rhythm Heart sounds: no murmurs and normal S1 and S2 GI Palpation (GI): Soft to palpation, nontender, no hepatomegaly and no splenomegaly Auscultation: normal bowel sounds Skin General skin exam: no rashes or lesions noted and dry skin Neuro General: oriented to person, oriented to place and oriented to time Cranial nerves: Yes Equal, round and reactive pupils present Speech: No Abnormal speech present Gait exam (Neuro): Normal gait present Motor exam (neuro): no tremor noted Extrem Right upper extremity: full ROM Left upper extremity: full ROM Right lower extremity: full ROM; no edema Left lower extremity: full ROM; no edema Psych Mental Status: mental status grossly normal Speech and movement: Normal speech and movement present Affect: normal affect Attitude: cooperative Thought process: Normal thought process present Coding Level of Care Code Est Pt Level 4 (11919) Diagnoses ESRD (end stage renal disease) on dialysis N18.6; Z99.2 Acute hypernatremia E87.0 Hyperkalemia E87.5 Nausea and vomiting, unspecified vomiting type R11.2 Vomiting type: unspecified Time Spent (min) 39 Assessment & Plan Assessment & Plan (1) ESRD (end stage renal disease) on dialysis: Comment: dialysis MWF via [facility] @ [facility] [phone] (started dialysis 11/18/24) Code(s): N18.6 - End stage renal disease; Z99.2 - Dependence on renal dialysis Category: Medical (2) Acute hypernatremia: Code(s): E87.0 - Hyperosmolality and hypernatremia Category: Medical (3) Hyperkalemia: Code(s): E87.5 - Hyperkalemia Category: Medical (4) Nausea and vomiting: Code(s): R11.2 - Nausea with vomiting, unspecified Category: Medical Qualifiers: Vomiting type: unspecified Qualified Code(s): R11.2 - Nausea with vomiting, unspecified Plan The plan involves addressing the patient's dialysis-related symptoms by monitoring her post-dialysis lightheadedness and ensuring she remains stable during and after the procedure. Additionally, efforts will be made to clarify the status of her recent colonoscopy to facilitate her placement on the transplant list. Encouraged the patient to be compliant with dialysis due to the buildup of toxins that will occur when not dialyzed as recommended. Patient verbalized that she is aware but it is not easy to keep up with the demands. In addition, explained to the patient that her post dizziness after dialysis is due to the fluid shift that take place and she should practice rising slowly in moving slowly after being dialyzed. The patient we will have transplant Center request her colonoscopy records that she had in September to see if she still needs to do another colonoscopy. Patient was informed and verbally consented to the use of an ambient scribe for clinic note documentation during this visit.
[2025-03-05 11:12] VITALS: BP 110/78; PULSE 86; TEMP 36.6; O2SAT 97; BMI 28.5
--- OUTSIDE RECORDS SUMMARY | 2025-03-05 11:55 | XMS_ITS | Clinical Summary ---
Author Organization [facility] Facility Address [address] [place] [address] Care Team Providers Care House Designer Name Role Phone Mary Garcia LISA Primary Care Provider [phone] Allergies Active Allergy Reactions Criticality Noted Date [...] in the evening. Active ergocalciferol 1.25 MG (02495 UT) capsule Take 1 capsule by mouth [...] 05/14/2019 12:01 PM EDT Plan of Treatment Upcoming Encounters Date Type Department Care Team (Late st Contact Info) Description 03/12/2025 8:45 AM EDT Office Visit [facility] [address] [place] [address] [place] [address] Health Maintenance Due Date Last Done Comments Breast Cancer Screening 1965 Hepatitis B Vaccine (1 of 3 - 19+ 3-dose series) 06/08 Pneumococcal Vaccine: 50+ Years (1 of 2 - PCV) 984 Colorectal Cancer Screening: Annual FOBT 2014 Colorectal Cancer Screening: Colonoscopy 2014 Colorectal Cancer Screening: Sigmoidoscopy 2014 Influenza Vaccine (#1) 2025 Procedures Procedure Name Priority Date/Time Associated Diagnosis Comments THYROIDS Routine 02/18/2025 CHEMISTRY Routine 02/18/2025 CHEMISTRY Routine 02/18/2025 HD KINETICS Routine 02/04/2025 POST CHEMISTRY Routine 02/04/2025 CHEMISTRY Routine 02/04/2025 IMMUNO CHEMISTRY Routine 01/21/2025 THYROIDS Routine 01/21/2025 CHEMISTRY Routine 01/21/2025 HEMATOLOGY Routine 01/21/2025 CHEMISTRY Routine 01/21/2025 HD KINETICS Routine 01/07/2025 POST CHEMISTRY Routine 01/07/2025 CHEMISTRY Routine 01/07/2025 THYROIDS Routine 12/19/2024 IMMUNO CHEMISTRY Routine 12/19/2024 CHEMISTRY Routine 12/19/2024 HEMATOLOGY Routine 12/19/2024 CHEMISTRY Routine 12/19/2024 from Last 3 Months Results * THYROIDS (02/18/2025) Only the most recent of3 resultswithin the time period is included. TSH 2.834 0.300 - 3.000 mIU/L [facility] Comment: The reference range of 0.300-3.000 mIU/L is recommended by the [place] [employer]ocrinologists (AACE). An ESRD population contains about 20% of individuals with TSH of up to 20 mIU/L and normal free T4 consistent with non-thyroidal illness. ESRD patients with true hypothyroidism develop persistent values above 20 mIU/L. 02/18/2025 02/19/2025 9:2 1 AM EDT Narrative [facility] - 02/19/2025 Unless otherwise specified, test(s) performed at: [facility], [address] [place], [place] [id number] HEALTH CENTER MANAGER: Latrell Pollack M.D. For any questions, please call customer service at FREQUENCY:MONTHLY Resulting Agency Comment Specimen source: Serum us Tima Salas MD LAB BLOOD ORDERABLES Final Re sult [facility] See order comments or contact performing lab Unknown, [place] * (ABNORMAL) [facility] Chemistry (02/18/2025) Only the most recent of8 resultswithin the time period is included. BUN 57(H) 6 - 19 mg/dL [facility] Creatinine 6.15(H) 0.60 - 1.30 mg/dL [facility] BUN/Creatinine Ratio 9.3(L) 10.0 - 20.0 [facility] Sodium 141 136 - 145 mEq/L [facility] Potassium 4.3 3.5 - 5.1 mEq/L [facility] Chloride 107 96 - 108 mEq/L [facility] Bicarbonate (CO2) 18(L) 22 - 29 mEq/L [facility] Calcium 7.6(L) 8.4 - 10.2 mg/dL [facility] Corrected Calcium 7.8(L) 8.4 - 10.2 mg/dL [facility] Comment: Corrected Calcium is not equivalent to measured Ionized Calcium. Phosphorus 7.2(H) 2.6 - 4.5 mg/dL [facility] Calcium Phosphorus Product 55(H) 0 - 54 [facility] Calcium Phosporus Product, Cor 56(H) 0 - 54 [facility] LDH 133 118 - 273 U/L [facility] Albumin 3.8 3.5 - 5.2 g/dL [facility] Glucose 104(H) 70 - 100 mg/dL [facility] Iron 44 30 - 160 mcg/dL [facility] UIBC 254 155 - 355 mcg/dL [facility] TIBC 298 185 - 515 mcg/dL [facility] Iron Saturation (TSat) 15(L) 20 - 55 % [facility] 02/18/2025 02/19/2025 9:2 1 AM EDT Narrative [facility]19[facility]25 Unless otherwise specified, test(s) performed at: [facility], [address] [place] [id number] HEALTH CENTER MANAGER: Latrell Pollack M.D. For any questions, please call customer service at FREQUENCY:MONTHLY Resulting Agency Comment Specimen source: Serum Tima Salas MD LAB BLOOD ORDERABLES Final Re sult Performing Organization Address [facility] Co de Phone Number [facility] See order comments or contact performing lab Unknown, [place] * HD KINETICS (02/04/2025) Only the most recent of2 resultswithin the time period is included. % Urea Reduction 72 65 - 80 % [facility] 02/04/2025 02/05/2025 12: 59 PM EDT Narrative Resulting Agency Comment Specimen source: Plasma Tima Salas MD LAB BLOOD ORDERABLES Final Re sult Performing Organization Address [facility] de Phone Number [facility] See order comments or contact performing lab Unknown, [place] * (ABNORMAL) POST CHEMISTRY (02/04/2025) Only the most recent of2 resultswithin the time period is included. BUN Post Dialysis 23(H) 6 - 19 mg/dL [facility] 02/04/2025 02/05/2025 12: 59 PM EDT Narrative [facility] - 02/06/2025 Unless otherwise specified, test(s) performed at: [facility], [address] [place] [address] HEALTH CENTER MANAGER: Latrell Pollack M.D. For any questions, please call customer service at FREQUENCY:OTHER Resulting Agency Comment Specimen source: Plasma Tima Salas MD LAB BLOOD ORDERABLES Final Re sult Performing Organization Address [facility] Co de Phone Number [facility] See order comments or contact performing lab Unknown, [place] * IMMUNO CHEMISTRY (01/21/2025) Only the most recent of2 resultswithin the time period is included. Hep B Surface Ag Negative Negative [facility] 01/21/2025 01/22/2025 9:5 8 AM EDT Narrative Resulting Agency Comment Specimen source: Serum Tima Salas MD LAB BLOOD ORDERABLES Final Re sult Performing Organization Address City/[facility]/ZIP Co de Phone Number [facility] See order comments or contact performing lab Unknown, [place] * (ABNORMAL) HEMATOLOGY (01/21/2025) Only the most recent of2 resultswithin the time period is included. WBC 4.95 4.80 - 10.80 1000/mcL [facility] RBC 3.03(L) 4.20 - 5.40 mill/mcL [facility] Hematocrit 29.9(L) 37.0 - 47.0 % [facility] MCV 99 80 - 100 fl [facility] MCH 31.1(H) 27.0 - 31.0 pg [facility] MCHC 31.5 30.0 - 36.0 g/dL [facility] RDW 15.1(H) 11.5 - 14.5 % [facility] Hemoglobin 9.4(L) 12.0 - 16.0 g/dL [facility] Hemoglobin x 3 28.2(L) 36.0 - 48.0 % [facility] Platelets 140 130 - 400 1000/mcL [facility] 01/21/2025 01/22/2025 11: 01 AM EDT Narrative [facility] - 01/22/2025 Unless otherwise specified, test(s) performed at: [facility], [address] [place], [place] [id number] HEALTH CENTER MANAGER: Latrell Pollack M.D. For any questions, please call customer service at FREQUENCY:MONTHLY Resulting Agency Comment Specimen source: Blood Tima Salas MD LAB BLOOD ORDERABLES Final Re sult [facility] See order comments or contact performing lab Unknown, [place] from Last 3 Months Insurance [facility] [place] [id number] Medicaid [place] Care Teams House Designer Relationship Specialty Start Date End Date Mary Garcia FNP [address] [place] [address] PCP - General 06/19/22
--- OUTSIDE RECORDS SUMMARY | 2025-03-05 11:55 | XMS_ITS | Clinical Summary ---
Author Organization [facility] Address [address] [place] [address] Care Team Providers Care Gang Miner Name Role Phone Emanuel Scruggs Primary Care Provider [phone] Allergies Active Allergy Reactions Criticality Noted Date [...] Encounters Date Type Department Care Team Description 03/03/2025 Telephone [facility] Transplant Department [address] [place] [address] Kimber Fallon RN 02/02/2025 Orders Only [facility] Transplant Department [address] [place] [address] Kimber Fallon RN End stage renal disease (HCC) (Primary Dx); Hypertension secondary to other renal disorders; Pre-transplant evaluation for kidney transplant 02/02/2025 Telephone [facility] Transplant Department [address] [place] [address] Kimber Fallon, LEROY 01/16/2025 Documentation [facility] Transplant Department [address] [place] [address] Kimber Fallon, RN ABO Dual Validation 01/16/2025 Documentation [facility] Transplant Department [address] [place] [address] Kimber Fallon, LEROY 01/14/2025 Orders Only [facility] Transplant Department [address] [place] [address] Tito Patricio MD 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) 01/12/2025 Results Follow-Up [facility] Renal Transplant [address] [place] [phone] Kimber Fallon RN 01/12/2025 Documentation [facility] Department [address] [place] [address] Kimber Fallon, RN ABO Dual Validation 01/06/2025 Orders Only [facility] Department [address] [place] [phone] Kimber Fallon RN End stage renal disease (HCC) (Primary Dx); Pre-transplant evaluation for kidney transplant 12/30/2024 Orders Only [facility] Transplant Department [address] [place] [phone] Tito Patricio MD End stage renal disease (HCC) (Primary Dx) 12/30/2024 Orders Only [facility]plant Department [address] [place] [address] Tito Patricio MD 12/25/2024 Telephone [facility] Transplant Department [address] [place] [address] Kimber Fallon RN 12/24/2024 Telephone [facility] Department [address] [place] [address] Kimber Fallon RN 12/24/2024 Telephone [facility] Transplant Department [address] [place] [address] Kimber Fallon RN from Last 3 Months [...] 95 09/01/2024 10:57 AM EST Temperature 36.1 C (97 F) 09/01/2024 10:57 AM EST Respiratory Rate 18 [...] Info) Description 08/19/2025 1:40 PM EST Follow-Up [facility]al Transplant [address] [place] [address] Tito Patricio MD [address] [place] [address] 08/19/2025 2:00 PM EST Social Work [facility] Transplant [address] [place] [address] Tito Patricio MD [address] [place] [id number] [facility] Health Maintenance Due Date Last [...] of Health Annual Screening 09/03/2024 Influenza Vaccine (#1) 2025 Hemoglobin 09/01/2025 09/01/2024 PTH 09/01/2025 09/01/2024 Phosphorus 09/01/2025 09/01/2024 RSV Vaccine (60+ years old a nd patients) (1 - 1-dose 75+ series) 2040 CKD: Referral to Nephrology Completed 09/01/2024 HIV Screening Completed 09/01/2024 Hepatitis C Screening Completed 09/01/2024 Procedures * Due to [place] state law, [...] to Health Maintenance Results * Due to [place] state law, [...] - 0.20 10*3/uL 09/01/2024 3:19 PM EST [facility] nRBC % 0.0 /100 WBCs 09/01/2024 3:19 PM EST [facility] nRBC # <0.01 <0.01 10*3/uL 09/01/2024 3:19 PM EST [facility] Blood Structure of peripheral vein / Unknown Venipuncture / Unknown 09/01/2024 2:46 PM EST 09/01/2024 3:10 PM EST us Tito Patricio MD LAB BLOOD ORDERABLES Final Resu lt [facility] [address] [place] [address], [place] * Hepatitis C Antibody w/Reflex to PCR (09/01/2024 2:46 PM EST) Hepatitis C Antibody NON-REACT JILL NON-REACT JILL 09/02/2024 7:23 AM EST [facility] Comment: HCV antibody was non-reactive. There is no laboratory evidence of HCV infection. In most cases, no further action is required. However, if recent HCV exposure is suspected, a test for HCV RNA (test code 49384) is suggested. For additional information please refer to http://education.AfterCollege/faq/KGM25m4 (This link is being provided for informational/ educational purposes only.) Blood Structure of peripheral vein / Unknown Venipuncture / Unknown 09/01/2024 2:46 PM EST 09/01/2024 3:07 PM EST Narrative [facility] 09/02/2024 7:23 AM EST [facility] Received Date: us Tito Patricio MD LAB BLOOD ORDERABLES Final Resu lt Performing Organization Address City/[facility]/ZIP Co de Phone Number [facility] [place] [address] [facility] [address], [place] [address], [place] [phone] [facility] [address] [facility] 3rd Floor, [place] [address], [place] [phone] * (ABNORMAL) Phosphorus (09/01/2024 2:46 PM EST) Phosphorus 8.2(H) 2.5 - 4.5 mg/dL 09/01/2024 3:52 PM EST [facility] Blood Structure of peripheral vein / Unknown Venipuncture / Unknown 09/01/2024 2:46 PM EST 09/01/2024 3:10 PM EST us Tito Patricio MD LAB BLOOD ORDERABLES Final Resu lt [facility] [address] [place] [address], * (ABNORMAL) PTH, Intact (without Calcium) (09/01/2024 2:46 PM EST) Parathyroid Hormone, Intact 1488(H) 16 - 77 pg/mL 09/03/2024 7:22 AM EST [facility] Comment: Interpretive Guide Intact PTH Calcium ------- Normal Parathyroid Normal Normal Hypoparathyroidism Low or Low Normal Low Hyperparathyroidism Primary Normal or High High Secondary High Normal or Low Tertiary High High Non-Parathyroid Hypercalcemia Low or Low Normal High Blood Structure of peripheral vein / Unknown Venipuncture / Unknown 09/01/2024 2:46 PM EST 09/01/2024 3:10 PM EST Narrative [facility] [place] - 09/03/2024 7:22 AM EST [facility] Received Date: us Tito Patricio MD LAB BLOOD ORDERABLES Final Resu lt [facility] [place] [address] [facility] [address], [place] [address], [place] [phone] [facility] [address] [facility] [address]rd [address], [place] [address], [place] [phone] from Last 3 Months or Most Recently Relevant to Health Maintenance Insurance [place] [address] [facility] Care Teams Gang Miner Relationship Specialty Start Date End Date Emanuel Scruggs [address] [place] [address] PCP - General 03/22/17
== END 2025-03-05 11:37 | disposition home or self-care (01) ==
LOC: HO.HMCH 11:04
PROVIDERS: PCP Internal Medicine
DX: N18.6 End stage renal disease (principal); Z99.2 Dependence on renal dialysis; E87.0 Hyperosmolality and hypernatremia; E87.5 Hyperkalemia; R11.2 Nausea with vomiting, unspecified

== ENCOUNTER → 2025-03-05 11:03 | Outpatient (BNVA) | payer OTHER, SELFPAY | PROVIDERS: PCP Internal Medicine | DX: N18.6 End stage renal disease (principal); I25.2 Old myocardial infarction; E87.0 Hyperosmolality and hypernatremia; Z99.2 Dependence on renal dialysis; D63.1 Anemia in chronic kidney disease; E21.3 Hyperparathyroidism, unspecified; I10 Essential (primary) hypertension; E87.5 Hyperkalemia; R11.2 Nausea with vomiting, unspecified | CPT/HCPCS: 96127; 99212 ==

== ENCOUNTER 2025-03-17 09:15 | Outpatient (AMB) | payer OTHER, SELFPAY ==
[2025-03-17 09:35] VITALS: BP 120/78; PULSE 59; BMI 28.8
--- NOTE | 2025-03-17 09:35 | MHC.OFFVIS ---
Vital Signs 03/17/25 09:35 Height 5 ft 5 in Weight 173 lb 4.533 oz BMI 28.8 BP 120/78 Blood Pressure Location Lt brachial Position Sitting Pulse 59 Pulse Source Pulse Oximeter Intake Visit Reasons: Renal transplant team/ abn echo km pt Criminal Justice Professor Required: No Medical Records Specialist: Medical Records Specialist Present Allergies Penicillins Allergy (Intermediate, Verified 03/17/25 09:37) RASH Medication List - Last Reconciled 03/17/25 by Georgina Reina, [employer]URRET [employer]CH PRESS OPERATOR-C atorvastatin 80 mg PO BEDTIME 90 days [bed rail As directed] blood pressure monitor As directed carvedilol 6.25 mg PO BID gabapentin 100 mg PO TID Grab bar As directed [hand held shower As directed] [pill box twice daily As directed] [recliner As directed] sevelamer HCl 800 mg PO TID Shower Chair with back sitz bath As directed sitz bath As directed HPI HPI Renal transplant team/ abn echo km pt: Details: Anh is a 59-year-old female past medical history of hypertension, chronic kidney disease, mild obesity, cardiomyopathy, who presents for follow-up. Today she reports that she has been attending dialysis 3 times weekly. She was hospitalized after missing a dialysis treatment but is now doing well. She does have issues with fatigue and lightheadedness following dialysis. She tells me she is on the transplant list. She has not had issues with recent GI bleeding. No chest discomfort at rest or with activity. No shortness of breath, PND, orthopnea or edema. No lightheadedness, presyncope, syncope. Taking all meds as directed. Daughter is present and assisting with Portuguese translation. Patient ambulates with cane and does only light activities at home. [facility] Medical History Noncompliance of patient with renal dialysis ESRD (end stage renal disease) on dialysis ESRD (end stage renal disease) on dialysis Back pain Asthma History of blood transfusion NSTEMI (non-ST elevated myocardial infarction) Atrial fibrillation Acute on chronic kidney failure Secondary hyperparathyroidism (of renal origin) Anemia in chronic kidney disease (CKD) Chronic systolic (congestive) heart failure Cardiomyopathy CKD (chronic kidney disease) stage 5, GFR less than 15 ml/min Essential hypertension Normocytic anemia Surgical History History of esophagogastroduodenoscopy (EGD) Hx of colonoscopy History of surgery Status post dilation and curettage History of abdominal surgery History of extraction of renal calculus History of tubal ligation Family History Father Throat cancer Mother Hypertension Daughter In good health Daughter In good health Sister In good health Family/Other Breast cancer Social History Household Members: None Housing: Apartment Housing Other:: studio Are you a primary urgent care technician to a significant other at home: No Do you presently have visiting nurse or other home services: Yes (WATER/WASTEWATER PROJECT MANAGER/VNA) Unable to assess alcohol history related to: Unknown Alcohol intake: never Comment: Pt declining bed alarm Patient Tobacco Use Status: Former Tobacco user Tobacco use type: Cigarette Years Smoked: 30 +/- e-Cigarette/Vaping Use: Never Used Second Hand Smoke Exposure: No Advance Directives Date on File: 11/21/23 service: No Current occupational status: unemployed Cognitive needs: No Hearing needs: No Vision needs: No Review of Systems Const All systems reviewed & are unremarkable except as noted in HPI and below Reports fatigue ENT Reports dizziness (after dialysis) Card Denies chest pain, Denies chest pain at rest, Denies chest pain with activity, Denies rapid heart rate, Denies pedal edema, Denies edema, Denies leg edema, Denies lightheadedness, Denies palpitations, Denies dyspnea, Denies dyspnea on exertion and Denies orthopnea Resp Denies cough, Denies dyspnea and Denies dyspnea on exertion GI Denies hematochezia and Denies change in stool character Musc Denies abnormal gait, Denies limited range of motion, Denies muscle cramps, Denies muscle weakness, Denies numbness, Denies radiating pain into limb, Denies stiffness and Denies tingling Neuro Denies abnormal gait, Reports dizziness (after dialysis), Denies numbness and Denies tingling Endo Reports fatigue and Denies palpitations Physical Exam Vital Signs: Last Vital Signs Pulse 59 03/17/25 09:35 BP 120/78 03/17/25 09:35 BMI result Body Mass Index 28.8 Const General: cooperative, healthy appearing, comfortable and no acute distress Orientation/consciousness: patient oriented x3 Neck Neck: Yes normal visual inspection Resp Effort & Inspection: normal respiratory effort Auscultation: clear to auscultation bilaterally, no rales, no rhonchi and no wheezes Cardio Rate: regular rate Rhythm: regular rhythm Heart sounds: S1 normal heart sound present, S2 normal heart sound present, no gallops, no murmurs and no rubs Neuro General: patient oriented x3 Extrem General: Yes normal to inspection, No no pedal edema and No calf tenderness Psych Appearance: grossly normal Mental Status: mental status grossly normal Speech and movement: Normal speech and movement present Assessment & Plan Assessment & Plan (1) Cardiomyopathy: Comment: follows w/[facility] Code(s): I42.9 - Cardiomyopathy, unspecified Category: Medical Plan: Known history of cardiomyopathy with prior echos showing EF as low as 30-35%, 04/2019. Echo 12/14/2022 shows EF 40-45%. She has stage 5 chronic kidney disease and cardiac catheterization has not been performed on her. Nuclear stress test was previously ordered however not completed by her. She was not seen in our office between 07/05/2023 and 10/02/2024. Last echo 09/09/2024 showed EF 50%, basal inferior hypokinetic. In September she did have troponin elevation during hospitalization. She is now on the kidney transplant list. At this time will complete a pharmacological nuclear stress test to evaluate for any ischemia due to prior NSTEMI and wall motion abnormality seen on echocardiogram. Plan to call her with test results. Continue metoprolol for neurohormonal modulation. Not on Corbin or Arb due to chronic kidney disease. Signs and symptoms of heart failure reviewed with her. Cardiology follow-up in 6 months, sooner if needed (2) NSTEMI (non-ST elevated myocardial infarction): Code(s): I21.4 - Non-ST elevation (NSTEMI) myocardial infarction Category: Medical Plan: NSTEMI during September hospitalization in the setting of significant anemia with GI bleed. Troponin jayshree to 455. Echocardiogram as above. Invasive cardiac testing avoided due to advanced CKD, nearing end-stage renal disease. No anginal sounding symptoms today. Will plan for a nuclear stress test. She is not on aspirin due to advanced kidney disease. She is on atorvastatin and metoprolol. (3) Atrial fibrillation with rapid ventricular response: Code(s): I48.91 - Unspecified atrial fibrillation Category: Medical Plan: Episode of AFib RVR during September hospitalization. She was treated with rate slowing agents converted to sinus rhythm. She was not put put on anticoagulation due to GI bleed. Chads Vasc score of 1. She is not noticing any heart palpitations since that time. Recent EKGs are showing sinus rhythm. Labs from 02/16/2025 showed hematocrit 37.4 Holter previously ordered to evaluate for PAF and she did not complete. Will hold off at this time. Clinically in sinus rhythm today. (4) Essential hypertension: Code(s): I10 - Essential (primary) hypertension Category: Medical Plan: Blood pressure goal less than 130/80. Controlled at this time. Continues on Metoprolol and amlodipine. No med changes made (5) CKD (chronic kidney disease) stage 5, GFR less than 15 ml/min: Code(s): N18.5 - Chronic kidney disease, stage 5 Category: Medical Plan: Now end-stage renal disease and on dialysis. Follows closely with Nephrology. States she is on the renal transplant list. Plan I discussed the importance of completing a pharmacological stress test to evaluate her cardiac function, especially with her upcoming transplant. We will coordinate the test with her dialysis schedule to minimize inconvenience. I advised her to stay in touch with the transplant team to ensure all necessary steps are completed for her listing. Follow-up will be based on the stress test results, with a potential office visit in six months unless earlier intervention is required. Orders: Orders NM cardiolite stress test Today I21.4 - Non-ST elevation (NSTEMI) myocardial infarction, I42.9 - Cardiomyopathy, unspecified, R93.1 - Abnormal findings on diagnostic imaging of heart and coronary circulation CA lexiscan stress w magan Today I21.4 - Non-ST elevation (NSTEMI) myocardial infarction, I42.9 - Cardiomyopathy, unspecified, R93.1 - Abnormal findings on diagnostic imaging of heart and coronary circulation Patient Instructions: - Complete the scheduled stress test as advised. - Coordinate with the transplant team to ensure all requirements are met. - Attend follow-up appointments as scheduled. - Notify this office if you are having any concerning heart palpitations or chest discomfort. Emergency care if needed. Patient was informed and verbally consented to the use of an ambient scribe for clinic note documentation during this visit. Visit time spent on chart review, interview, assessment, orders, documentation. Coding Level of Care Code Est Pt Level 4 (81218) Complex EM visit Add On G2211 Diagnoses Cardiomyopathy I42.9 NSTEMI (non-ST elevated myocardial infarction) I21.4 Atrial fibrillation with rapid ventricular response I48.91 Essential hypertension I10 CKD (chronic kidney disease) stage 5, GFR less than 15 ml/min N18.5 Time Spent (min) 28
--- OUTSIDE RECORDS SUMMARY | 2025-03-17 09:40 | XMS_ITS | Clinical Summary ---
Author Organization [address] [place] [address] Address [address] [place] [address] Phone Care Team Providers Care Straightener Name Role Phone Rebecca Ferraro MD Primary Care Prov ider Encounters Date Type Department Care Team Description 01/07/2025 Lab Requisition [facility] - Main Lab [address] [facility] [place] [address] Danis Betancur MD Anemia in [...] - 2023-2 5 season) 2024 Influenza Vaccine (#1) 2025 RSV Immunization Adult Patie nts (1 [...] LAB HEMETOLOGY METHOD 01/07/2025 9:02 AM EDT [facility] Blood Venous blood specimen / Unknown 01/07/2025 7:20 AM EDT 01/07/2025 8:44 AM EDT us Danis Betancur MD LAB BLOOD ORDERABLES Final Resul t [facility] [address] [place] [address], from Last 3 Months Insurance [facility] [employer] Member Subscriber Plan / Payer (Ef fective 2024-2098) Name:Anh Kitchen Relation to Subscriber:Self Name:Anh Kitchen Payer ID:[id number] Group ID:Not on file Type:Not on file Address: [facility] [address] [place] [place] [id number] MEDICAID - [place] Care Teams Straightener Relationship Specialty Start Date End Date Rebecca Ferraro MD [address] [place] [address] PCP - General Internal Medicine 04/17/22
--- OUTSIDE RECORDS SUMMARY | 2025-03-17 09:40 | XMS_ITS | Continuity of Care Document ---
Author Organization [employer] [facility], [address] [employer] [facility] Address [address] [place] [address] Care Team Providers Care Night Custodian Name Role Phone HIM CCA OTHER DIEGO MALDONADO Primary Care Provider Assessment Encounter Date Assessment Date Assessment LastModified by Organization Details LastModified Time 03/12/2025 03/12/2025 59 yo F with ESRD on HD (MWF), who reportedly hit left leg w vacuum immersion metalcleaner few days ago and experiencing left leg pain and swelling. Has not used any heat/ice or taken oral meds. No F/C, N/V. Last HD yesterday, next tomorrow. VS wnl. Exam as pictured. No evidence of cellulitis. Likely soft tissue swelling/inflam mation iso trauma. Will give tylenol 1g now, can take 1g every 6 hours PRN pain Can use heat PRN pain. Reviewed red flag sxs. [email or web address] Not available 03/12/2025 20:09:14 Plan of Treatment Reminders Order Date Submit Date Provider Last Modified By Organization Details Last Modified Time Details Appointments None recorded. Lab None recorded. Referral None recorded. Procedures None recorded. Surgeries None recorded. Imaging None recorded. Medication Orders acetaminoph en 500 mg tablet 2024 025 [email or web address] [id number], [address] [place], [address], 17:22:51 Acetaminoph en Extra Strength 500 mg tablet 2024 025 [email or web address] [id number], [address] [place], [address], 17:22:52 Patient TargetsNo targets recorded. Patient InstructionsNo instructions recorded. Reason for Referral None Reported. Medical Equipment None Reported. Allergies Allergen ID Allergen Name Allergen Category Reaction Reaction Severity Criticality Documentation Date Start Date Code Code System Note Provider Name and Address Organization Details Recorded Time 91719 Product containin g penicilli n (product) medicatio n Not available Not available Not available 03/12/2025 76532 8001 SNOMED Not Available [facility] - production 5 15:34:27 Medications Name Sig Start Date Stop Date Status Note LastModified by Organization Details LastModified Time atorvastatin 80 mg tablet TAKE 1 TABLET BY MOUTH EVERYDAY AT BEDTIME active Not Available Not Available No t Available carvedilol 6.25 mg tablet TAKE 1 TABLET BY MOUTH TWICE A DAY active Not Available Not Available No t Available Acetaminophe n Extra Strength 500 mg tablet Take 2 tablets every 6 hours by oral route. 2024 active Not Available Not Available Not Avai lable clindamycin HCl 300 mg capsule TAKE ONE CAPSULE EVERY 8 HOURS UNTIL FINISHED. active Not Available Not Available No t Available simethicone 180 mg capsule TAKE 1 CAPSULE ORALLY 2 TIMES A DAY NEEDED FOR ABDOMINAL DISTENTION FOR 30 DAYS active Not Available Not Available Not Available sevelamer HCl 800 mg tablet TAKE 1 TABLET BY MOUTH 3 TIMES A DAY FOR 30 DAYS. MUST ADMINISTER WITH A MEAL/FOOD active Not Available Not Available No t Available amlodipine 5 mg tablet TAKE 1 TABLET BY MOUTH EVERY DAY active Not Available Not Available No t Available aspirin 81 mg tablet,delay ed release TAKE 1 TABLET BY MOUTH EVERY DAY active Not Available Not Available No t Available sodium bicarbonate 650 mg tablet TAKE 2 TABLETS BY MOUTH 3 TIMES A DAY active Not Available Not Available Not Available amlodipine 10 mg tablet TAKE 1 TABLET BY MOUTH EVERY DAY active Not Available Not Available No t Available ferrous sulfate 325 mg (65 mg iron) tablet TAKE 1 TABLET BY MOUTH TWICE A DAY active Not Available Not Available No t Available metoprolol tartrate 50 mg tablet TAKE 1 TABLET BY MOUTH TWICE A DAY active Not Available Not Available No t Available ibuprofen 600 mg tablet TAKE 1 TABLET BY MOUTH EVERY 6 HOURS NEEDED FOR PAIN active Not Available Not Available No t Available ferrous sulfate 325 mg (65 mg iron) tablet,delay ed release TAKE 1 TABLET BY MOUTH TWICE A DAY active Not Available Not Available No t Available cholecalcife rol (vitamin D3) 1,250 mcg (50,000 unit) capsule TAKE 1 CAPSULE BY MOUTH EVERY WEEK active Not Available Not Available No t Available Vitals Date Recorded Body temperature Respiratory rate Heart rate Oxygen saturation Oxygen saturation in Arterial blood by Pulse oximetry Systolic And Diastolic Provider Name and Address Organization Details Last Updated DateTime 98.2 [degF] 16 /min 77 /min 98 % 98 % 148/86 mm[Hg] Not Available [facility] - production 17:18:41 Social History None recorded. Functional Status None recorded. Mental Status None recorded. Family History Nothing Reported. Medical History No medical history recorded. Gynecological HistoryNo gynecological history recorded. Obstetrics History GPAL:G 0 P 0 0 0 0 Past Encounters Encounter ID Performer Location Encounter Start Date Encounter Closed Date Diagnosis/Indication Diagnosis SNOMED-CT Code Diagnosis ICD10 Code Diagnosis Note [id number] AMY SMITH MD [facility] ED Medical [address] [address] 03/12/2025 17:18:29 03/12/2025 21:05:31 Pain in left lower limb 929011001 M79.605 Health Concerns Section Related Observation LastModified by Organization Detai ls LastModified Time None Recorded Concern Status LastModified by Organization Details LastModified Time None Recorded Payers Encounter Date Sequence Insurance Name Policy Number Policy Chen Covered Member ID Chen Member ID Guarantor Name 03/12/2025 1 [facility] - DOS ON OR AFTER 2022 - DUAL ELIGIBLE - CUSTODIAL OPTIONS AND ONE CARE (MEDICARE REPLACEMENT/AD VANTAGE - HMO) Anh Kitchen [id number] Anh Kitchen Notes Date Note Type Note Provider Name and Address Organization Details Recorded Time 03/12/2025 text/html [facility] Nurse Triage Notes (Lacey Abraham): Reason For Request: pt experiencing pain inher left leg Chief Complaints: Extremity Pain PMH: Chronic Kidney Disease, Hypertension, Congestive Heart Failure PMH Reviewed at 03/12/2025 - 15:34 Allergies Reviewed at 03/12/2025 - :34 Comments: 59 y.o female complains of Extremity Pain Daughter is referring patient patient is on dialysis has port in her chest woke up with left leg pain today after her nap on Sunday she had injury with the vacuum she dropped it on her ankle and her ankle was swollen around her ankle. no open wound and no bruising on her left knee there is a small bruise on knee and its hurting. She is able to bear weight and walk on her foot she is able to wiggle her toes. denies any numbness or tingling. endorses a warm feeling. denies any lightheadedness, dizziness, chest pain or shortness f breath. reviewed red flags. I provided information on the mobile health provider response time and advised the patient and/or caregiver to monitor reported signs and symptoms. I discussed the warning signs of when to seek emergency care. .................. .................. .................. .................. .................. .................. .................. ............... Metal Bench Patternmaker Note From Gian Lea: Dispatched to above address for leg pain. On arrival patient 59 y/o F, found sitting in chair, AOX4, airway patent, speaking in full sentences, good color, in no apparent distress. Patient states on Sunday she was cleaning her apartment and dropped her vacuum onto the medial side of her L lower leg, has been painful since, minor swelling and redness to lateral lower L leg firm to touch pain to palpation. Patients vital signs checked. Secondary assessment, pupils PERRL, airway patent, no JVD, trachea midline, equal chest rise and fall, lungs clear all holcomb, abdomen soft non tender, no signs of trauma, good radial pulse, skin pink warm and dry. L lower leg on exam slightly swollen, pain to palpation, red santos to lateral lower leg approx 2 inches by 4 inches firm to touch normal temperature, full ROM with some pain, patient rates pain at res as 4/10. Photos taken and [place] [facility] [facility] [place], spoke with Dr. Smith, advised of patient complaints and exam findings. [facility] believes it is likely a bruise, recommends home care, will prescribe Tylenol, follow up as needed, ordered 1000mg Tylenol given now. Patient allergies verified, medication order verified. Patient administered 1000mg Tylenol PO. Patient advised of home care, red flags and need for follow up. Patient has no additional questions or concerns at this time. SC8 clear. [place]. [facility] Medication Orders: acetaminophen 500 mg tablet: Administered .................. .................. .................. .................. .................. .................. .................. ............... [facility] Consulted: Amy Smith .................. .................. .................. .................. .................. .................. .................. ............... Disposition: Fulfilled AMY SMITH MD [address] [place] [address],[address], [place], [address], [employer] 03/12/2025 20:09:20 OBGyn Episode No OBEpisode recorded.
--- OUTSIDE RECORDS SUMMARY | 2025-03-17 09:40 | XMS_ITS | Clinical Summary ---
Author Organization [facility], Address [address] [place] [address] Phone Care Team Providers Care Pitching Coach Name Role Phone Mary Garcia LISA Primary Care Provider [phone] Allergies Active Allergy Reactions Criticality Noted Date [...] in the evening. Active ergocalciferol 1.25 MG (23631 UT) capsule Take 1 capsule by mouth [...] Encounters Date Type Department Care Team Description 03/12/2025 8:45 AM EDT Office Visit [facility] [address] [place] [address] [place] [address] Fredo Walsh MD End stage renal disease (HCC) (Primary Dx) 03/10/2025 Telephone [facility] Access [address] [place] [address] Viv Aguilera 03/04/2025 Orders Only [facility] [address] [place] [address] Tima Salas MD from Last 3 Months [...] Care Team (Late st Contact Info) Description 04/02/2025 11:00 AM EDT Scheduled Only [facility] [address] [place] [address] [place] [address] Health Maintenance Due Date Last Done Comments Breast Cancer Screening 1965 Hepatitis B Vaccine (1 of 3 - 19+ 3-dose series) 06/08 Pneumococcal Vaccine: 50+ Years (1 of 2 - PCV) 984 Colorectal Cancer Screening: Annual FOBT 2014 Colorectal Cancer Screening: Colonoscopy 2014 Colorectal Cancer Screening: Sigmoidoscopy 2014 Influenza Vaccine (#1) 2025 Procedures Procedure Name Priority Date/Time Associated Diagnosis Comments HD KINETICS Routine 03/04/2025 CHEMISTRY Routine 03/04/2025 POST CHEMISTRY Routine 03/04/2025 THYROIDS Routine 02/18/2025 CHEMISTRY Routine 02/18/2025 CHEMISTRY [...] 12/19/2024 from Last 3 Months Results * HD KINETICS (03/04/2025) Only the most recent of3 resultswithin the time period is included. % Urea Reduction 73 65 - 80 % [facility] 03/04/2025 03/05/2025 10: 19 AM EDT Narrative [facility] - 03/06/2025 Unless otherwise specified, test(s) performed at: [facility], [address] [place], [place] [id number] CVICU RN: Latrell Pollack M.D. For any questions, please call customer service at FREQUENCY:OTHER Resulting Agency Comment Specimen source: Plasma Tima Salas MD LAB BLOOD ORDERABLES Final Re sult Performing Organization Address [facility] de Phone Number [facility] See order comments or contact performing lab Unknown, [place] * (ABNORMAL) POST CHEMISTRY (03/04/2025) Only the most recent of3 resultswithin the time period is included. Pathologist [facility] BUN Post Dialysis 24(H) 6 - 19 mg/dL [facility] 03/04/2025 03/05/2025 10: 19 AM EDT Narrative [facility] - 03/05/2025 Unless otherwise specified, test(s) performed at: [facility], [address] [place] [address] CVICU RN: Latrell Pollack M.D. For any questions, please call customer service at FREQUENCY:OTHER Resulting Agency Comment Specimen source: Plasma Tima Salas MD LAB BLOOD ORDERABLES Final Re sult Performing Organization Address [facility] de Phone Number [facility] See order comments or contact performing lab Unknown, [place] * (ABNORMAL) [facility] (03/04/2025) Only the most recent of9 resultswithin the time period is included. BUN 89(H) 6 - 19 mg/dL [facility] 03/04/2025 03/05/2025 3:5 3 PM EDT Narrative [facility] - 03/06/2025 Unless otherwise specified, test(s) performed at: [facility], [address] [place] [address] CVICU RN: Latrell Pollack M.D. For any questions, please call customer service at FREQUENCY:OTHER Resulting Agency Comment Specimen source: Serum Tima Salas MD LAB BLOOD ORDERABLES Final Re sult Performing Organization Address City/[facility]/ZIP Co de Phone Number [facility] See order comments or contact performing lab Unknown, [place] * THYROIDS (02/18/2025) Only the most recent of3 resultswithin the time period is included. TSH 2.834 0.300 - 3.000 mIU/L [facility] Comment: The reference range of 0.300-3.000 mIU/L is recommended by the [place] [employer] Clinical Endocrinologists (AACE). An ESRD population contains about 20% of individuals with TSH of up to 20 mIU/L and normal free T4 consistent with non-thyroidal illness. ESRD patients with true hypothyroidism develop persistent values above 20 mIU/L. 02/18/2025 02/19/2025 9:2 1 AM EDT Narrative [facility] - 02/19/2025 Unless otherwise specified, test(s) performed at: [facility], [address] [place] [address] CVICU RN: Latrell Pollack M.D. For any questions, please call customer service at FREQUENCY:MONTHLY Resulting Agency Comment Specimen source: Serum Tima Salas MD LAB BLOOD ORDERABLES Final Re sult Performing Organization Address City/[facility]/ZIP Co de Phone Number [facility] See order comments or contact performing lab Unknown, [place] * IMMUNO CHEMISTRY (01/21/2025) Only the most recent of2 resultswithin the time period is included. Hep B Surface Ag Negative Negative [facility] 01/21/2025 01/22/2025 9:5 8 AM EDT Narrative Resulting Agency Comment Specimen source: Serum Tima Salas MD LAB BLOOD ORDERABLES Final Re sult Performing Organization Address City/[facility]/ZIP Co de Phone Number [facility] See order comments or contact performing [...] Labs Platelets 140 130 - 400 1000/mcL [facility] 01/21/2025 01/22/2025 11: 01 AM EDT Narrative [facility] - 01/22/2025 Unless otherwise specified, test(s) performed at: [facility], [address] [place] [address] CVICU RN: Latrell Pollack M.D. For any questions, please call customer service at FREQUENCY:MONTHLY Resulting Agency Comment Specimen source: Blood Tima Salas MD LAB BLOOD ORDERABLES Final Re sult Performing Organization Address City/[facility]/ZIP Co de Phone Number [facility] See order comments or contact performing lab Unknown, [place] from Last 3 Months Insurance Medicaid [place] [facility] Care Dual SNP ([id number]) [place] [id number] Care Teams Pitching Coach Relationship Specialty Start Date End Date Mary Garcia FNP [address] [place] [address] PCP - General 06/19/22
--- OUTSIDE RECORDS SUMMARY | 2025-03-17 09:40 | XMS_ITS | Clinical Summary ---
Author Organization [facility] Address [address] [place] [address] Care Team Providers Care Technology Risk Intern Name Role Phone Emanuel Scruggs Primary Care Provider [phone] Allergies Active Allergy Reactions Criticality Noted Date [...] Encounters Date Type Department Care Team Description 03/10/2025 Telephone [facility] Transplant Department [address] [place] [address] Kimber Fallon RN 03/03/2025 Telephone [facility] Transplant Department [address] [place] [address] Kimber Fallon RN 02/02/2025 Orders Only [facility] Transplant Department [address] [place] [address] Kimber Fallon, RN End stage renal disease (HCC) (Primary Dx); Hypertension secondary to other renal disorders; Pre-transplant evaluation for kidney transplant 02/02/2025 Telephone [facility] Transplant Department [address] [place] [address] Kimber Fallon RN 01/16/2025 Documentation [facility] Transplant Department [address] [place] [phone] Kimber Fallon, RN ABO Dual Validation 01/16/2025 Documentation [facility] Transplant Department [address] [place] [address] Kimber Fallon RN 01/14/2025 Orders Only [facility] Transplant Department [address] [place] [address] Tito Patricio MD 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) 01/12/2025 Results Follow-Up [facility] Renal Transplant [address] [place] [phone] Kimber Fallon RN 01/12/2025 Documentation [facility] Transplant Department [address] [place] [address] Kimber Fallon, LEROY ABO Dual Validation 01/06/2025 Orders Only [facility] Transplant Department [address] [place] [phone] Kimber Fallon RN End stage renal disease (HCC) (Primary Dx); Pre-transplant evaluation for kidney transplant 12/30/2024 Orders Only [facility] Transplant Department [address] [place] [address] Tito Patricio MD End stage renal disease (HCC) (Primary Dx) 12/30/2024 Orders Only [facility] Transplant Department [address] [place] [address] Tito Patricio MD 12/25/2024 Telephone [facility] Transplant Department [address] [place] [address] Kimber Fallon RN 12/24/2024 Telephone [facility] Transplant Department [address] [place] [address] Kimber Fallon RN 12/24/2024 Telephone [facility] Transplant Department [address] [place] [address] Kimber Fallon RN from Last 3 Months [...] Info) Description 08/19/2025 1:40 PM EST Follow-Up [facility] Renal Transplant [address] [place] [address] Tito Patricio MD [address] [place] [address] 08/19/2025 2:00 PM EST Social Work [facility] Renal Transplant [address] [place] [address] Tito Patricio MD [address] [place] [address] Freeman Thomas Health Maintenance Due Date Last Done Comments [...] Screening Completed 09/01/2024 Procedures * Due to [place] state law, this organization might not be [...] to Health Maintenance Results * Due to [place] state law, this organization might not be [...] - 0.20 10*3/uL 09/01/2024 3:19 PM EST [facility] nRBC % 0.0 /100 WBCs 09/01/2024 3:19 PM EST [facility] nRBC # <0.01 <0.01 10*3/uL 09/01/2024 3:19 PM EST [facility] [employer] [facility] LABORATORY Blood Structure of peripheral vein / Unknown Venipuncture / Unknown 09/01/2024 2:46 PM EST 09/01/2024 3:10 PM EST Tito Patricio MD LAB BLOOD ORDERABLES Final Resu lt [facility] [address] [place] [address], [place] * Hepatitis C Antibody w/Reflex to PCR (09/01/2024 2:46 PM EST) Hepatitis C Antibody NON-REACT JILL NON-REACT JILL 09/02/2024 7:23 AM EST [facility] Comment: HCV antibody was non-reactive. There is no laboratory evidence of HCV infection. In most cases, no further action is required. However, if recent HCV exposure is suspected, a test for HCV RNA (test code 47135) is suggested. For additional information please refer to http://education.Blurtt/faq/RYB16b0 (This link is being provided for informational/ educational purposes only.) Blood Structure of peripheral vein / Unknown Venipuncture / Unknown 09/01/2024 2:46 PM EST 09/01/2024 3:07 PM EST Narrative [facility] - 09/02/2024 7:23 AM EST [facility] Received Date: us Tito Patricio MD LAB BLOOD ORDERABLES Final Resu lt DEJAN LEHEDY [address] [place] [address] [address] Floor, [place] [address], [place] [phone] [address] [facility] 3rd Floor, [place] [address], [place] [phone] * (ABNORMAL) Phosphorus (09/01/2024 2:46 PM EST) Phosphorus 8.2(H) 2.5 - 4.5 mg/dL 09/01/2024 3:52 PM EST [facility] Blood Structure of peripheral vein / Unknown Venipuncture / Unknown 09/01/2024 2:46 PM EST 09/01/2024 3:10 PM EST us Tito Patricio MD LAB BLOOD ORDERABLES Final Resu lt [facility] [address] [place] [address], * (ABNORMAL) PTH, Intact (without Calcium) (09/01/2024 2:46 PM EST) Parathyroid Hormone, Intact 1488(H) 16 - 77 pg/mL 09/03/2024 7:22 AM EST [facility] Comment: Interpretive Guide Intact PTH Calcium ------- Normal Parathyroid Normal Normal Hypoparathyroidism Low or Low Normal Low Hyperparathyroidism Primary Normal or High High Secondary High Normal or Low Tertiary High High Non-Parathyroid Hypercalcemia Low or Low Normal High Blood Structure of peripheral vein / Unknown Venipuncture / Unknown 09/01/2024 2:46 PM EST 09/01/2024 3:10 PM EST Narrative [facility] - 09/03/2024 7:22 AM EST [facility] Received Date: us Tito Patricio MD LAB BLOOD ORDERABLES Final Resu lt [facility] [address] [facility] 3rd Floor, [place] [address], [place] [phone] [facility] [address] [facility] 3rd Floor, [place] [address], [place] [phone] from Last 3 Months or Most Recently Relevant to Health Maintenance Insurance [facility] [place] [id number] [facility] [employer] Care Teams Technology Risk Intern Relationship Specialty Start Date End Date Emanuel Scruggs [address] [place] [id number] PCP - General 03/22/17
--- OUTSIDE RECORDS SUMMARY | 2025-03-17 09:40 | XMS_ITS | Encounter Summary ---
Author Organization [facility] Address [address] [place] [address] Encounters * CPT with Dino Reis at [employer] on 2025-03-12 { reasonForRequest : pt experiencing pain inher left leg , patientReports&q uot;: , denies :[], chiefComplaints : Extremity Pain ,"pmh : Chronic Kidney Disease, Hypertension, Congestive Heart Failure , allergie s : Penicillins , otherAllergies :null, painAssessment : &qu ot;, visitOutcome : , additionalComments : 59 y.o female complains of Extremity Pain\[facility] \npatient is on dialysis has port in her chest\nwoke up with left leg pain today after her nap\non Sunday she had injury with the vacuum she dropped it on her ankle and her ankle was swollen around her ankle. no open wound and no bruising\non her left knee there is a small bruise on knee and its hurting. \nShe is able to bear weight and walk on her foot she is able to wiggle her toes.\ndenies any numbness or tingling. endorses a warm feeling. \ndenies any lightheadedness, dizziness, chest pain or shortness f breath.\nreviewed red flags. \n\n\nI provided information on the mobile health provider response time and advised the patient and/or caregiver to monitor reported signs and symptoms. I discussed the warning signs of when [facility]. } Dispatched to above address for leg pain. [...] leg on exam slightly swollen, pain to p alpation, red santos to lateral lower leg approx 2 inches by 4 inches firm to touch normal temperature, full ROM with some pain, patient rates pain at res as 4/10. Photos taken and uploaded for [facility]. [facility] contacted, spoke with Dr. Cruz, advised of patient complaints and exam findings. [facility] believes it is likely a bruise, recommends home care, will prescribe Tylenol, follow up as needed, ordered 1000mg Tylenol given now. Patient allergies verified, medication order verified. Patient administered 1000mg Tylenol PO. Patient advised of home care, red flags and need for follow up. Patient has no additional questions or concerns at this time. SC8 clear. EOR. IV_(FLUIDS_AND/OR_MEDICATION), MEDICATION_IM, ORAL_MEDICATION, WOUND_CARE, ORTHOSTATIC_VITAL_SIGNS Written by Dino Reis on 2025-03-12
== END 2025-03-17 10:13 | disposition home or self-care (01) ==
LOC: HO.HCS 09:15
PROVIDERS: PCP Internal Medicine; Visit Provider Nurse Practitioner Family
DX: I42.9 Cardiomyopathy, unspecified (principal); I21.4 Non-ST elevation (NSTEMI) myocardial infarction; I48.91 Unspecified atrial fibrillation; I12.0 Hypertensive chronic kidney disease with stage 5 chronic kidney disease or end stage renal disease; N18.5 Chronic kidney disease, stage 5
CPT/HCPCS: 99214; G2211

== ENCOUNTER → 2025-03-17 09:15 | Outpatient (BNVA) | payer OTHER, SELFPAY | PROVIDERS: PCP Internal Medicine; Visit Provider Nurse Practitioner Family | DX: N18.5 Chronic kidney disease, stage 5 (principal); I10 Essential (primary) hypertension; I48.91 Unspecified atrial fibrillation; I21.4 Non-ST elevation (NSTEMI) myocardial infarction; I42.9 Cardiomyopathy, unspecified | CPT/HCPCS: 99212 ==

== ENCOUNTER 2025-04-06 12:59 | Emergency (ER) | payer OTHER, SELFPAY ==
[2025-04-06 13:11] VITALS: BP 117/68; PULSE 98; RESP 16; TEMP 36.5; O2SAT 98; BMI 28.2
--- NOTE | 2025-04-06 13:15 | ED.GENADULT ---
HPI - General Adult General Chief complaint: Skin/Abscess/Foreign Body Stated complaint: pt states Left arm is infected Time Seen by Provider: 04/06/25 15:24 Source: patient and radiographer Mode of arrival: ambulatory Limitations: language barrier History of Present Illness ED Provider: HPI narrative: 59 y/o female with a medical history of ESRD on HD, HTN, CAD with h/o NSTEMI, HLD presenting with redness and swelling over her left upper extremity she is status post AV fistula graft by Dr. Fredo Walsh at [facility], she endorsed receiving hemodialysis today through the Zavala catheter that was placed at the same time, procedure was done on 04/02. She states she noted redness and swelling of the next day it was noted by the daughter but I guess they were not able to contact anybody or reach anyone. She went to dialysis today and has had a full dialysis. No fevers or chills reported. She is endorsing swelling and pain. Related Data Home Medications ?Medication ?Instructions ?Recorded ?Confirmed sevelamer HCl 800 mg tablet 800 mg PO TID 09/14/24 03/17/25 Previous Rx's ?Medication ?Instructions ?Recorded blood pressure monitor #1 ea 11/10/23 sitz bath #1 ea 11/13/23 Grab bar #1 ea 11/22/23 Shower Chair #1 11/22/23 bed rail #1 ea 11/22/23 hand held shower #1 ea 11/22/23 pill box twice daily #1 ea 11/22/23 atorvastatin 80 mg tablet 80 mg PO BEDTIME 90 days #90 tabs 09/11/24 sitz bath #1 ea 09/11/24 recliner #1 ea 11/24/24 carvedilol 6.25 mg tablet 6.25 mg PO BID #180 tabs 01/27/25 gabapentin 100 mg capsule 100 mg PO TID #90 caps 02/17/25 Allergies Allergy/AdvReac Type Severity Reaction Status Date / Time Penicillins Allergy Intermediate RASH Verified 04/06/25 13:16 Review of Systems Constitutional: Constitutional: Reports as per [facility] Past Medical History Medical History (Updated 04/06/25 @ 16:00 by Héctor Covarrubias, DO) ESRD (end stage renal disease) on dialysis Cardiomyopathy Noncompliance of patient with renal dialysis ESRD (end stage renal disease) on dialysis Back pain Asthma History of blood transfusion NSTEMI (non-ST elevated myocardial infarction) Atrial fibrillation Acute on chronic kidney failure Secondary hyperparathyroidism (of renal origin) Anemia in chronic kidney disease (CKD) Chronic systolic (congestive) heart failure CKD (chronic kidney disease) stage 5, GFR less than 15 ml/min Essential hypertension Normocytic anemia Surgical History History of esophagogastroduodenoscopy (EGD) Hx of colonoscopy History of surgery Status post dilation and curettage History of abdominal surgery History of extraction of renal calculus History of tubal ligation Family History Family History Father Throat cancer Mother Hypertension Daughter In good health Daughter In good health Sister In good health Family/Other Breast cancer Social History Social History Household Members: None Housing: Apartment Housing Other:: studio Are you a primary resident care supervisor to a significant other at home: No Do you presently have visiting nurse or other home services: Yes ([employer]) Unable to assess alcohol history related to: Unknown Alcohol intake: never Comment: Pt declining bed alarm Patient Tobacco Use Status: Former Tobacco user Tobacco use type: Cigarette Years Smoked: 30 +/- e-Cigarette/Vaping Use: Never Used Second Hand Smoke Exposure: No Advance Directives: Yes Advance Directives on File: Yes Advance Directives Date on File: 11/21/23 service: No Current occupational status: unemployed Cognitive needs: No Hearing needs: No Vision needs: No Physical Exam ED Vital Signs: Vital Signs - 24 hr 04/06/25 13:11 04/06/25 16:12 Temperature 97.7 F 97.7 F Pulse Rate 98 98 Respiratory Rate 16 16 Blood Pressure 117/68 117/68 Pulse Oximetry 98 98 Oxygen Delivery Method Room Air Room Air BMI result Body Mass Index 28.2 Const Other: Gen: ?Overall well-appearing patient HEENT: PERRLA, EOMI, MMM, Neck: Supple, no LAD CV: RRR, no obvious murmurs appreciated, left-sided we will I plan on catheter in place no drainage Resp: ?No wheezing rales rhonchi no stridor moving air well Abd: ?Bowel sounds are present, no tenderness no rebound no rigidity MSK: Ecchymosis and some induration over the left upper extremity overall soft compartments Neuro: ?Alert and oriented x3, moving upper and lower extremities symmetrically, no obvious facial asymmetry noted Course Course Course Narrative: RME performed by Yessica Rajput PA-C. Patient is a 59 year old assigned female at presenting to the emergency department with left arm pain / swelling. Patient states she recently had a fistula placed in the left arm and there is worsening swelling / redness. Detailed physical exam and review of systems are deferred to the gas flow regulator. Labs ordered. Patient placed back in the waiting room pending room availability and results. Medical Decision Making Medical Decision Making MDM Narrative: Patient presented with a ecchymosis, some erythema along her left upper extremity status post AV fistula placement and replacement of her Zavala catheter, I reached out to her surgeon from [facility] who performed the surgery, I also send him postop pictures he is feeling that this is likely postop ecchymosis over the tunnel of the graft and not much to do at this time. I am reassured by that, patient has no fevers, no leukocytosis, and as long as she has good follow up tomorrow I am comfortable with the plan 16:20 I sent patient's information to her surgeon Dr. Walsh, he is going to see her in the office tomorrow, he is feeling is that this is postop ecchymosis and not much to do at this time. I feel very comfortable with this she has no leukocytosis no fevers, patient has been updated of this. Certified Pedorthotist utilized Differential Diagnosis Differential Diagnoses: The differential diagnosis associated with the presentation includes Admission/Observation Consideration of admission/observation: Escalation of care including admission/observation considered 2022 Emergency Medicine Coding Guide from [email or web address] on 04/06/2025 All calculations should be rechecked by clinician prior to use RESULT SUMMARY: 5 Estimated Level of Service Problems: Moderate (4) Risk: High (5) Data: Extensive (5) NARRATIVE MDM: This patient's problem complexity is Moderate as patient: has an acute illness with systemic symptoms. This patient's risk is High due to: overall presentation requiring evaluation for a potentially High-risk process. This patient's data complexity is Extensive due to: -multiple tests ordered -external notes reviewed -discussion of management/testing with external professional INPUTS: Number and Complexity ?> 6 = 4: acute illness w/systemic sx (f) Risk level ?> 4 = High Tests ordered ?> 2 = 2 Tests results reviewed (excluding labs) ?> 0 = 0 Prior external notes reviewed ?> 1 = 1 Assessment requiring and independent historian ?> 0 = No Independent interpretation of tests ?> 0 = No Discussed management/test interpretation w/external professional ?> 1 = Yes Consult Healthcare Provider Management of the patient was discussed with: Window Installation Subcontractor (Dr. Walsh) Lab Data MDM Lab Attestation statement: I reviewed the patient's lab results. 04/06/25 13:41 04/06/25 13:41 Labs: Lab Results 04/06/25 04/06/25 Range/Units 13:41 15:33 WBC 7.5 (4.8-10.8) X10*3/uL RBC 3.49 L (4.20-5.50) X10*6/uL Hgb 9.5 L (12.0-16.0) g/dl Hct 30.2 L (37.0-47.0) % MCV 86.5 (80.0-98.0) fL MCH 27.2 (27.0-33.0) pg MCHC 31.5 (31.0-35.0) g/dl RDW 15.7 (11.0-16.0) % Plt Count 105 L (160-400) X10*3/uL MPV 11.6 (9.4-12.3) fL Immature Gran % (Auto) 0.8 H (0.0-0.4) % Neut % (Auto) 65.5 (45-73) % Lymph % (Auto) 22.9 (20-40) % [place] % (Auto) 6.7 (2-11) % Eos % (Auto) 3.6 (0-4) % Baso % (Auto) 0.5 (0-2) % Lymph # (Auto) 1.7 (1.2-4.9) X10*3/uL [place] # (Auto) 0.5 (0.1-1.2) X10*3/uL Eos # (Auto) 0.3 (0.0-0.4) X10*3/uL Baso # (Auto) 0.0 (0.0-0.2) X10*3/uL Abs Immat Gran (auto) 0.06 H (0.00-0.03) X10*3/uL Absolute Neuts (auto) 4.9 (2.0-8.3) x10*3/uL Absolute Nucleated RBC 0.000 (0.0-0.012) X10*3/uL Nucleated RBC % (auto) 0.0 (0.0-0.2) /100WBC ESR 42 H (0-20) MM/HR Sodium 140 (135-145) mmol/L Potassium 4.7 (3.3-5.1) mmol/L Chloride 103 (96-108) mmol/L Carbon Dioxide 26 (22-29) mmol/L Anion Gap 16 (12-20) BUN 59 H (9-16) mg/dL Creatinine 6.00 H* (0.5-1.4) mg/dL Estim Creat Clear Calc 10.7 Estimated GFR 7 Random Glucose 87 (60-115) mg/dL Lactic Acid 1.2 (0.5-2.0) mmol/L Calcium 8.4 (8.4-10.2) mg/dL Magnesium 2.0 (1.6-2.6) mg/dL Total Bilirubin 0.3 (0.0-1.0) mg/dL AST 29 (5-31) U/L ALT 34 H (0-31) U/L Alkaline Phosphatase 84 (39-117) U/L C-Reactive Protein 7.61 H (< or = 0.50) mg/dL Total Protein 6.9 (6.5-8.0) g/dL Albumin 3.6 (3.5-5.0) g/dL External Record Review External record reviewed: Outside ED record ([facility] Operative record) Discharge Plan Discharge Clinical Impression: Post-op pain, Ecchymosis Patient Disposition: Home, Self-Care Additional Instructions: I spoke with Dr. Walsh he would like to see you in the office tomorrow, please call [phone] tell them you were seen in the emergency department and the surgeon would like to see you in the office tomorrow call in the morning this looks like expected postoperative swelling. Habl? con el Dr. Walsh. Le gustar?a verlo en el consultorio ma?skye. Llame al [phone] y d?moreno que lo atendieron en el departamento de emergencias. El cirujano desea verlo en el consultorio ma?skye. Llame por la ma?skye. Parece que se trata de kennedy hinchaz?n posoperatoria esperada. Prescriptions: No Action (DME) blood pressure monitor Kit See Rx Instructions .Route Qty: 1 0RF Rx Instructions: As directed (DME) recliner See Rx Instructions .Route .MEDSUPPLY Qty: 1 0RF Rx Instructions: As directed carvedilol 6.25 mg tablet 6.25 mg PO BID Qty: 180 11RF atorvastatin 80 mg tablet 80 mg PO BEDTIME 90 Days Qty: 90 0RF (DME) sitz bath Kit See Rx Instructions .Route Qty: 1 0RF Rx Instructions: As directed (DME) sitz bath Kit See Rx Instructions .Route Qty: 1 0RF Rx Instructions: As directed sevelamer HCl 800 mg tablet 800 mg PO TID Rx Instructions: must administer with a meal/food gabapentin 100 mg Capsule 100 mg PO TID Qty: 90 0RF (DME) bed rail See Rx Instructions .Route .MEDSUPPLY Qty: 1 0RF Rx Instructions: As directed (DME) hand held shower See Rx Instructions .Route .MEDSUPPLY Qty: 1 0RF Rx Instructions: As directed (DME) Grab bar Misc See Rx Instructions .Route Qty: 1 0RF Rx Instructions: As directed (DME) pill box twice daily See Rx Instructions .Route .MEDSUPPLY Qty: 1 0RF Rx Instructions: As directed (DME) Shower Chair Misc See Rx Instructions .Route Qty: 1 0RF Rx Instructions: with back Interventions: ED Discharge Assessment Last Done: 04/06/25 16:12 Discharge Date/Time: 04/06/25 16:12 Print Language: Tajik
[2025-04-06 13:45] LABS: MANUAL DIFF FLAG NO
[2025-04-06 14:04] LABS: Hematocrit 30.2 % (37.0-47.0); Hemoglobin 9.5 g/dl (12.0-16.0); Imm Gran Abs Auto 0.06 X10*3/uL (0.00-0.03); Imm Gran Pct Auto 0.8 % (0.0-0.4); Lymphocytes Absolute Auto 1.7 X10*3/uL (1.2-4.9); Mean Corpuscular HGB Conc 31.5 g/dl (31.0-35.0); Mean Corpuscular Hemoglobin 27.2 pg (27.0-33.0); Mean Corpuscular Volume 86.5 fL (80.0-98.0); NRBC Abs Auto 0.000 X10*3/uL (0.0-0.012); NRBC Pct Auto 0.0 /100WBC (0.0-0.2); Platelet Count 105 X10*3/uL (160-400); Red Blood Count 3.49 X10*6/uL (4.20-5.50); White Blood Count 7.5 X10*3/uL (4.8-10.8)
[2025-04-06 14:08] LABS: Alanine Aminotransferase 34 U/L (0-31); Albumin Level 3.6 g/dL (3.5-5.0); Alkaline Phosphatase 84 U/L (39-117); Anion Gap 16 (12-20); Aspartate Amino Transferase 29 U/L (5-31); Blood Urea Nitrogen 59 mg/dL (9-16); Calcium 8.4 mg/dL (8.4-10.2); Carbon Dioxide 26 mmol/L (22-29); Chloride 103 mmol/L (96-108); Creatinine Clr Calc Pharmacy 10.7; Estimated Glomerular Filt Rate 7; Magnesium 2.0 mg/dL (1.6-2.6); Potassium 4.7 mmol/L (3.3-5.1); Sodium 140 mmol/L (135-145); Total Protein 6.9 g/dL (6.5-8.0)
--- OUTSIDE RECORDS SUMMARY | 2025-04-06 14:56 | XMS_ITS | Clinical Summary ---
Author Organization [facility] Address [address] [place] [address] Care Team Providers Care Child Center Assistant Name Role Phone Emanuel Scruggs Primary Care Provider [phone] Allergies Active Allergy Reactions Criticality Noted Date [...] Type Department Care Team Description 03/10/2025 Telephone [facility] Transplant Department [address] [place] [address] Kimber Fallon RN 03/03/2025 Telephone [facility] Transplant Department [address] [place] [address] Kimber Fallon RN 02/02/2025 Orders Only [facility] Transplant Department [address] [place] [address] Kimber Fallon, RN End stage renal disease (HCC) (Primary Dx); Hypertension secondary to other renal disorders; Pre-transplant evaluation for kidney transplant 02/02/2025 Telephone [facility] Transplant Department [address] [place] [address] Kimber Fallon RN 01/16/2025 Documentation [facility] Transplant Department [address] [place] [address] Kimber Fallon, LEROY ABO Dual Validation 01/16/2025 Documentation [facility] Transplant Department [address] [place] [phone] Kimber Fallon RN 01/14/2025 Orders Only [facility] Transplant Department [address] [place] [address] Tito Patricio MD 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) 01/12/2025 Results Follow-Up [facility] Renal Transplant [address] [place] [phone] Kimber Fallon RN 01/12/2025 Documentation [facility] Transplant Department [address] [place] [phone] Kimber Fallon, LEROY ABO Dual Validation 01/06/2025 Orders Only [facility] Transplant Department [address] [place] [id number] Kimber Fallon RN End stage renal disease (HCC) (Primary Dx); Pre-transplant evaluation for kidney transplant from Last 3 Months Family History Medical [...] Care Team (Late st Contact Info) Description 04/16/2025 4:00 PM EDT Follow-Up [facility] Services [address] [place] [address] Michela Asencio MD MPH [address] [place] [address] 08/19/2025 1:40 PM EST Follow-Up [facility] Transplant [address] [place] [address] Tito Patricio MD [address] [place] [address] 08/19/2025 2:00 PM EST Social Work [facility]plant [address] [place] [address] Tito Patricio MD [address] [place] [address] Thomas Freeman Health Maintenance Due Date Last [...] Completed 09/01/2024 Procedures * Due to [place] Check law, this organization might not be sharing [...] Health Maintenance Results * Due to [place] Check law, this organization might not be sharing [...] % 2.3 % 09/01/2024 3:19 PM EST [facility] Basophil % 0.5 % 09/01/2024 3:19 PM EST [facility] Neutrophil # 3.81 1.50 - 7.80 10*3/uL 09/01/2024 3:19 PM EST [facility] Immature Grans # <0.03 <=0.03 10*3/uL 09/01/2024 3:19 PM EST [facility] Lymphocyte # 1.80 0.85 - 3.90 10*3/uL 09/01/2024 3:19 PM EST [facility] Monocyte # 0.30 0.20 - 0.95 10*3/uL 09/01/2024 3:19 PM EST [facility] Eosinophil # 0.10 0.02 - 0.50 10*3/uL 09/01/2024 3:19 PM EST [facility] Basophil # <0.03 0.00 - 0.20 10*3/uL 09/01/2024 3:19 PM EST [facility] nRBC % 0.0 /100 WBCs 09/01/2024 3:19 PM EST [facility] nRBC # <0.01 <0.01 10*3/uL 09/01/2024 3:19 PM EST [facility] Blood Structure of peripheral vein / Unknown Venipuncture / Unknown 09/01/2024 2:46 PM EST 09/01/2024 3:10 PM EST Tito Patricio MD LAB BLOOD ORDERABLES Final Resu lt [facility] [address] [place] [address], * Hepatitis C Antibody w/Reflex to PCR (09/01/2024 2:46 PM EST) Hepatitis C Antibody NON-REACT JILL NON-REACT JILL 09/02/2024 7:23 AM EST [email or web address] Comment: HCV antibody was non-reactive. There is no laboratory evidence of HCV infection. In most cases, no further action is required. However, if recent HCV exposure is suspected, a test for HCV RNA (test code 92937) is suggested. For additional information please refer to http://education.[employer]/faq/NKY09u8 (This link is being provided for informational/ educational purposes only.) Blood Structure of peripheral vein / Unknown Venipuncture / Unknown 09/01/2024 2:46 PM EST 09/01/2024 3:07 PM EST Narrative [facility] - 09/02/2024 7:23 AM EST [facility] Received Date: Tito Patricio MD LAB BLOOD ORDERABLES Final Resu lt Performing Organization Address City/[facility]/ZIP Co de Phone Number [facility] [address], [place] [address], [facility] [address] [facility], [place] [address], * (ABNORMAL) Phosphorus (09/01/2024 2:46 PM EST) Phosphorus 8.2(H) 2.5 - 4.5 mg/dL 09/01/2024 3:52 PM EST [facility] Blood Structure of peripheral vein / Unknown Venipuncture / Unknown 09/01/2024 2:46 PM EST 09/01/2024 3:10 PM EST us Tito Patricio MD LAB BLOOD ORDERABLES Final Resu lt [facility] [address] [place] [address], * (ABNORMAL) PTH, Intact (without Calcium) (09/01/2024 2:46 PM EST) Parathyroid Hormone, Intact 1488(H) 16 - 77 pg/mL 09/03/2024 7:22 AM EST [facility] Comment: Interpretive Guide Intact PTH Calcium ------- Normal Parathyroid Normal Normal Hypoparathyroidism Low or Low Normal Low Hyperparathyroidism Primary Normal or High High Secondary High Normal or Low Tertiary High High Non-Parathyroid Hypercalcemia Low or Low Normal High Blood Structure of peripheral vein / Unknown Venipuncture / Unknown 09/01/2024 2:46 PM EST 09/01/2024 3:10 PM EST Narrative [facility] - 09/03/2024 7:22 AM EST [facility] Received Date: us Tito Patricio MD LAB BLOOD ORDERABLES Final Resu lt Performing Organization Address City/[facility]/ZIP Co de Phone Number DEJAN GALVEZ [address] [facility], [place] [address], [facility] [address], [place] [address], [place] [phone] from Last 3 Months or Most Recently Relevant to Health Maintenance [place] [address] [address] [address] [facility] Care Teams Child Center Assistant Relationship Specialty Start Date End Date Emanuel Scruggs [address] [place] [id number] PCP - General 03/22/17
--- OUTSIDE RECORDS SUMMARY | 2025-04-06 14:56 | XMS_ITS | Encounter Summary ---
Author Organization [facility], Address [address] [place] [address] Phone Care Team Providers Care Hr Payroll Coordinator Name Role Phone Mary Garcia CARE PROCESS MANAGER Primary Care Provider [phone] Encounter Details Date Type Department Care Team ([facility] Contact Info) Description 04/03/2025 Telephone [facility] Vascular Access [address] [place] [id number] Yessica Munoz [address] [place] [phone] Social History Tobacco Use Types Packs/Day Years [...] encounter Miscellaneous Notes * Telephone Encounter - Yessica Munoz - 04/03/2025 11:35 AM EDT Iris called to report there is no bleeding or drainage today. Not red, no fevers. She will call if any concerns arise. documented in this encounter Plan of Treatment Upcoming Encounters Date Type Department Care Team ([facility] Contact Info) Description 04/16/2025 11:00 AM EDT Office Visit [facility] - [facility] Center [address] [place] [address] documented as of this encounter Visit Diagnoses Not on filedocumented in this encounter Care Teams Hr Payroll Coordinator Relationship Specialty Start Date End Date Mary Garcia FNP [address] [place] [address] PCP - General 06/19/22 documented as of this encounter
--- OUTSIDE RECORDS SUMMARY | 2025-04-06 14:57 | XMS_ITS | Clinical Summary ---
Author Organization [address] [place] [address] Address [address] [place] [address] Phone Care Team Providers Care Trim Setter Name Role Phone Rebecca Ferraro MD Primary Care Prov ider Encounters Date Type Department Care Team Description 01/07/2025 Lab Requisition [facility] - Main Lab [address] [facility] [place] [address] Danis Betancur MD Anemia in [...] 2) 2015 Colorectal Cancer Screening: Colonoscopy 08/06/2022 HIV Screening 08/06/2022 Hepatitis C Screening 08/06/2022 Medicare Annual Wellness Visit 08/06/2022 Social Influencers of Health Screening 08/06/2022 COVID-19 Vaccine ( - 2023-2 5 season) 2024 Depression Screening 09/03/2024 Influenza Vaccine (#1) 2025 RSV Immunization Adult [...] LAB HEMETOLOGY METHOD 01/07/2025 9:02 AM EDT [facility] Blood Venous blood specimen / Unknown 01/07/2025 7:20 AM EDT 01/07/2025 8:44 AM EDT us Danis Betancur MD LAB BLOOD ORDERABLES Final Resul t [facility] [address] [place] [address], from Last 3 Months Insurance [facility] [employer] Member Subscriber Plan / Payer (Ef fective 2024-2098) Name:Anh Kitchen Relation to Subscriber:Self Name:Anh Kitchen Payer ID:[id number] Group ID:Not on file Type:Not on file Address: [facility] [address] [address] MEDICA[place] - [place] Care Teams Trim Setter Relationship Specialty Start Date End Date Rebecca Ferraro MD [address] [place] [id number] PCP - General Internal Medicine 04/17/22
--- NOTE | 2025-04-06 15:42 | PC.NURSE ---
Patient is Irish speaking only. Reports having fistula placed to left arm on , April 02, 2025 at [facility]. Doesn't recall the name of the surgeon that did the procedure. Left arm is red, warm to touch, inflammed. Patient also has dialysis port to left chest, and received dialysis today in [place] as scheduled. Receives dialysis on Sunday, Sunday, Sunday. States that she first noticed the worsening redness/swelling on Sunday (the next day) and reported it to her daughter who attempted to call [facility], but got no response. Dr. Covarrubias at bedside speaking with patient also. 22g IV access established to right hand. Lactic acid & Blood Cultures x2 drawn (1st drawn from right AC, 2nd drawn from right hand) and sent for analysis. Results pending. Dr. Covarrubias to reach out to [facility], awaiting response/follow-up. Care ongoing by this RN.
[2025-04-06 16:12] VITALS: BP 117/68; PULSE 98; RESP 16; TEMP 36.5; O2SAT 98
== END 2025-04-06 16:12 | disposition home or self-care (01) ==
PROVIDERS: Physician Assistant Medical; Emergency Provider Emergency Medicine; PCP Internal Medicine
DX: T81.9XXA Unspecified complication of procedure, initial encounter (principal); Z98.890 Other specified postprocedural states; R58 Hemorrhage, not elsewhere classified; M79.89 Other specified soft tissue disorders; N18.6 End stage renal disease; Z99.2 Dependence on renal dialysis; I10 Essential (primary) hypertension
CPT/HCPCS: 36415; 80053; 83605; 83735; 85025; 85652; 86140; 87040; 99283

== ENCOUNTER 2025-04-19 06:47 | Inpatient (IN) | payer OTHER, SELFPAY ==
[2025-04-19] VITALS (12 sets, daily range): BP systolic 146–181; BP diastolic 62–84; PULSE 60–88; RESP 15–20; TEMP 36.1–36.8; O2SAT 95–98; BMI 29.4
--- NOTE | 2025-04-19 | ECG_ITS ---
Test Reason : dizziness Blood Pressure : */* mmHG Vent. Rate : 71 BPM Atrial Rate : 71 BPM P-R Int : 136 ms QRS Dur : 90 ms QT Int : 424 ms P-R-T Axes : 35 4 82 degrees QTcB Int : 460 ms Sinus rhythm with Premature atrial complexes Otherwise normal ECG When compared with ECG of 16-Feb-2025 10:17, Premature atrial complexes are now Present T wave inversion no longer evident in Lateral leads Referred By: Generic ED Physician Electronically Signed By: Nirav Zamudio
--- NOTE | ~2025-04-19 | CT_ITS ---
CLINICAL HISTORY: gi bleed Exam: CT Abdomen and Pelvis Without IV Contrast Comparison: 11/15/2024 Findings: The liver density is homogeneous No biliary abnormalities The spleen is normal in size. 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 No pancreatic ductal dilatation There has been a left nephrectomy. There are 5 aneurysms, measuring between 7.1 and 22 mm in diameter, with calcified wall involving the distal right renal artery and intrarenal branches in the kidney hilum. Normal bowel caliber. There are few scattered sigmoid diverticula There postsurgical anterior and left lateral supraumbilical abdominal wall muscle atrophy and diastasis with stretching of the mesentery without focal bowel wall hernia. No secondary signs of acute appendicitis No free fluid/free air The abdominal aorta caliber is normal Bladder outline is smooth No suspicious skeletal lesions Impression: Multiple distal right renal artery aneurysms with calcified wall unchanged from previous exam. No noncontrast evidence of aneurysm leakage. No enteric intraluminal or extra luminal abnormal blood fluid collections on noncontrast imaging. This document has been electronically signed by: Harsha Martínez MD on 04/19/2025 13:57:00
--- OUTSIDE RECORDS SUMMARY | 2025-04-19 07:22 | XMS_ITS | Clinical Summary ---
Author Organization [facility], Address [address] [place] [address] Phone Care Team Providers Care Product Safety Manager Name Role Phone Mary Garcia LISA Primary Care Provider [phone] Allergies Active Allergy Reactions Criticality Noted Date [...] in the evening. Active ergocalciferol 1.25 MG (54690 UT) capsule Take 1 capsule by mouth [...] Encounters Date Type Department Care Team Description 04/08/2025 Orders Only [facility] [address] [address] Tima Salas MD 04/07/2025 2:00 PM EDT Office Visit [facility] [address] [place] [address] [place] [address] Fredo Walsh MD End stage renal disease (HCC) (Primary Dx) 04/07/2025 Documentation Only [facility] [address] [place] [address] [place] [address] Delilah Alanis 04/03/2025 Telephone [facility] [address] [place] [address] Yessica Munoz 04/03/2025 Telephone [facility] [address] [place] [address] [place] [address] Yessica Munoz 03/18/2025 Orders Only [facility] [address] [address] Tima Salas MD 03/12/2025 8:45 AM EDT Office Visit [facility] [address] [place] [address] Fredo Walsh MD End stage renal disease (HCC) (Primary Dx) 03/10/2025 Telephone [facility] [address] [place] [address] Viv Aguilera 03/04/2025 Orders Only [facility] [address] [address] Tima Salas MD from Last 3 Months [...] Care Team (Late st Contact Info) Description 04/23/2025 11:30 AM EDT Office Visit [facility] [address] [place] [address] [place] [address] Health Maintenance Due Date Last Done Comments Breast Cancer Screening 1965 Hepatitis B Vaccine (1 of 3 - 19+ 3-dose series) 06/08 Pneumococcal Vaccine: 50+ Years (2 of 2 - PCV) 013 03/12/2012 Colorectal Cancer Screening: Annual FOBT 2014 Colorectal Cancer Screening: Colonoscopy 2014 Colorectal Cancer Screening: Sigmoidoscopy 2014 Influenza Vaccine (#1) 2025 Pneumococcal Vaccine: Peds ( 0 to 5 Years) and At-Risk Patients (6 to 49 Years) Discontinued 03/12/2012 Procedures Procedure Name Priority Date/Time Associated Diagnosis Comments HD KINETICS Routine 04/08/2025 POST CHEMISTRY Routine 04/08/2025 CHEMISTRY Routine 04/08/2025 THYROIDS Routine 03/18/2025 CHEMISTRY Routine 03/18/2025 CHEMISTRY Routine 03/18/2025 IMMUNO CHEMISTRY Routine 03/18/2025 HEMATOLOGY Routine 03/18/2025 HD KINETICS Routine 03/04/2025 CHEMISTRY Routine 03/04/2025 POST CHEMISTRY Routine 03/04/2025 THYROIDS Routine 02/18/2025 CHEMISTRY Routine 02/18/2025 CHEMISTRY Routine 02/18/2025 HD KINETICS Routine 02/04/2025 POST CHEMISTRY Routine 02/04/2025 CHEMISTRY Routine 02/04/2025 IMMUNO CHEMISTRY Routine 01/21/2025 THYROIDS Routine 01/21/2025 CHEMISTRY Routine 01/21/2025 HEMATOLOGY Routine 01/21/2025 CHEMISTRY Routine 01/21/2025 from Last 3 Months Results * (ABNORMAL) HD KINETICS (04/08/2025) Only the most recent of3 resultswithin the time period is included. % Urea Reduction 63(L) 65 - 80 % [facility] 04/08/2025 04/09/2025 11: 49 AM EDT Narrative Resulting Agency Comment Specimen source: Plasma Tima Salas MD LAB BLOOD ORDERABLES Final Re sult Performing Organization Address [facility] de Phone Number [employer] [facility] See order comments or contact performing lab Unknown, [place] * (ABNORMAL) POST CHEMISTRY (04/08/2025) Only the most recent of3 resultswithin the time period is included. BUN Post Dialysis 33(H) 6 - 19 mg/dL [facility] 04/08/2025 04/09/2025 11: 49 AM EDT Narrative [facility] - 04/10/2025 Unless otherwise specified, test(s) performed at: [facility], [address] [place] [address] SET AND EXHIBIT DESIGNER: Latrell Pollack M.D. For any questions, please call customer service at FREQUENCY:OTHER Resulting Agency Comment Specimen source: Plasma Tima Salas MD LAB BLOOD ORDERABLES Final Re [facility] Performing Organization Address [facility] de Phone Number [facility] See order comments or contact performing lab Unknown, [place] * (ABNORMAL) [facility] (04/08/2025) Only the most recent of9 resultswithin the time period is included. BUN 90(H) 6 - 19 mg/dL [facility] 04/08/2025 04/09/2025 4:2 9 PM EDT Narrative [facility] - 04/09/2025 Unless otherwise specified, test(s) performed at: [facility], [address] [place] [address] SET AND EXHIBIT DESIGNER: Latrell Pollack M.D. For any questions, please call customer service at FREQUENCY:OTHER Resulting Agency Comment Specimen source: Serum Tima Salas MD LAB BLOOD ORDERABLES Final Re sult Performing Organization Address [facility] de Phone Number [facility] See order comments or contact performing lab Unknown, [place] * (ABNORMAL) THYROIDS (03/18/2025) Only the most recent of3 resultswithin the time period is included. TSH 3.761(H) 0.300 - 3.000 mIU/L [facility] Comment: The reference range of 0.300-3.000 mIU/L is recommended by the [place] Association of Clinical Endocrinologists (AACE). An ESRD population contains about 20% of individuals with TSH of up to 20 mIU/L and normal free T4 consistent with non-thyroidal illness. ESRD patients with true hypothyroidism develop persistent values above 20 mIU/L. 03/18/2025 03/19/2025 9:5 4 AM EDT Narrative Resulting Agency Comment Specimen source: Serum Tima Salas MD LAB BLOOD ORDERABLES Final Re sult [facility] See order comments or contact performing lab Unknown, [place] * IMMUNO CHEMISTRY (03/18/2025) Only the most recent of2 resultswithin the time period is included. Pathologist [facility] Hep B Surface Ag Negative Negative [facility] Hepatitis B Surface Ab 25 mIU/mL [facility] Comment: The anti-HBs (Hepatitis B surface antibody) is greater than or equal to 10 mIU/mL and implies immunity. The patient has either had an antibody response to HBV vaccination, received a transfusion, or has recovered from HBV infection. For post-vaccination antibody testing guidelines for the general public, refer to MMWR August 25, 2005/Vol.54 (No. 16); 1-23, and for healthcare workers, refer to MMWR August 22, 2013/Vol.62 (No. 10); 1-18. Reference Range: <10 mIU/mL Non-Immune >=10 mIU/mL Immune The magnitude of the measured result above 10 mIU/mL is not indicative of the total amount of antibody present. 03/18/2025 03/19/2025 9:5 4 AM EDT Narrative Resulting Agency Comment Specimen source: Serum Tima Salas MD LAB BLOOD ORDERABLES Edited R esult - Final [facility] See order comments or contact performing lab Unknown, [place] * (ABNORMAL) HEMATOLOGY (03/18/2025) Only the most recent of2 resultswithin the time period is included. WBC 5.87 4.80 - 10.80 1000/mcL [facility] RBC 4.25 4.20 - 5.40 mill/mcL [facility] Hematocrit 38.0 37.0 - 47.0 % [facility] MCV 90 80 - 100 fl [facility] MCH 27.7 27.0 - 31.0 pg [facility] MCHC 31.0 30.0 - 36.0 g/dL [facility] RDW 14.3 11.5 - 14.5 % [facility] Hemoglobin 11.8(L) 12.0 - 16.0 g/dL [facility] Hemoglobin x 3 35.4(L) 36.0 - 48.0 % [facility] Platelets 135 130 - 400 1000/mcL [facility] 03/18/2025 03/19/2025 9:5 9 AM EDT Narrative [facility] - 03/19/2025 Unless otherwise specified, test(s) performed at: [facility], [address] [place] [id number] SET AND EXHIBIT DESIGNER: Latrell Pollack M.D. For any questions, please call customer service at FREQUENCY:MONTHLY Resulting Agency Comment Specimen source: Blood Tima Salas MD LAB BLOOD ORDERABLES Final Re sult [facility] See order comments or contact performing lab Unknown, [place] from Last 3 Months Insurance [facility] Medicaid [place] [employer] Dual SNP ([id number]) Care Teams Product Safety Manager Relationship Specialty Start Date End Date Mary Garcia FNP [address] [place] [address] PCP - General 06/19/22
--- OUTSIDE RECORDS SUMMARY | 2025-04-19 07:22 | XMS_ITS | Clinical Summary ---
Author Organization [address] [place] [address] Address [address] [place] [address] Phone Care Team Providers Care Devops Solutions Architect Name Role Phone Rebecca Ferraro MD Primary Care Prov ider Social History Tobacco Use Types Packs/Day Years [...] Influencers of Health Screening 08/06/2022 COVID-19 Vaccine (1 - 2023-2 5 season) 2024 Depression Screening [...] on patient's age to complete this topic Insurance [facility] Member Subscriber Plan / Payer ( fective 2024-2098) Name:Anh Kitchen Relation to Subscriber:Self Name:Kitchen, Anh Payer ID:[id number] Group ID:Not on file Type:Not on file Address: [address] [address] MEDICAID - [place] Care Teams Devops Solutions Architect Relationship Specialty Start Date End Date Rebecca Ferraro MD [address] [place] [address] [phone] PCP - General Internal Medicine 04/17/22
--- OUTSIDE RECORDS SUMMARY | 2025-04-19 07:22 | XMS_ITS | Clinical Summary ---
Author Organization [facility] Address [address] [place] [address] Care Team Providers Care Brick Paver Name Role Phone Emanuel Scruggs Primary Care Provider [phone] Allergies Active Allergy Reactions Criticality Noted Date [...] Tablet(s) By Mouth 3 Times Daily Active omeprazole (PriLOSEC) 20 mg capsule Take 20 mg by mouth once a day. Active acetaminophen (TYLENOL) 500 mg tablet Take 500 mg by mouth every 6 hours as needed. Active gabapentin (NEURONTIN) 100 mg capsule Take 100 mg by mouth 3 times a day. Active oxyCODONE IR (ROXICODONE) 5 mg tablet Take 5 mg by mouth every 6 hours as needed. 04/10/2025 Active sevelamer carbonate (RENVELA) 800 mg tablet Take 800 mg by mouth 3 times a day with meals. Active carvediloL (COREG) 6.25 mg tablet Take 6.25 mg by mouth 2 times a day. 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 Incisional hernia 09/13/2016 Essential hypertension 09/13/2016 Asthma 09/13/2016 Encounters Date Type Department Care Team Description 04/16/2025 2:30 PM EDT Follow-Up [facility] Liver Transplant Services [address] [place] [address] Natasha Lott MD Abdominal wall hernia (Primary Dx); ESRD (end stage renal disease) (HCC); Hemodialysis patient (HCC); Hyperparathyroidism, secondary renal (HCC) 04/16/2025 Documentation [facility] Transplant Department [address] [place] [address] Kimber Fallon, RN Kidney Eval 03/10/2025 Telephone [facility] Transplant Department [address] [place] [address] Kimber Fallon, RN 03/03/2025 Telephone [facility] Transplant Department [address] [place] [address] Kimber Fallon RN 02/02/2025 Orders Only [facility] Transplant Department [address] [place] [address] Kimber Fallon, RN End stage renal disease (HCC) (Primary Dx); Hypertension secondary to other renal disorders; Pre-transplant evaluation for kidney transplant 02/02/2025 Telephone [facility] Transplant Department [address] [place] [address] Kimber Fallon, RN from Last 3 Months Family History Medical History Relation Name Comments Other Mother Family history of FH: coronary artery disease Relation Name Status Comments Mother Social History Tobacco Use Types Packs/Day Years Used Date Smoking Tobacco: Former Smokeless Tobacco: Never Tobacco Cessation:Counseling Given: Not Answered Comments::quit 2011 Alcohol Use Standard Drinks/Week Comments Not Currently 0 (1 standard drink = 0.6 oz pur e alcohol) quit 2011 Comments Unknown Sex and Gender Information Value Date Recorded Sex Assigned at Not on file Legal Sex Female 7:19 PM EDT Gender Identity Not on file Sexual Orientation Not on file Last Filed Vital Signs Vital Sign Reading Time Taken Comments Blood Pressure 134/85 04/16/2025 2:44 PM EDT Pulse 92 04/16/2025 2:44 PM EDT Temperature 36.8 C (98.2 F) 04/16/2025 2:44 PM EDT Respiratory Rate 18 04/16/2025 2:44 PM EDT Oxygen Saturation 95% 04/16/2025 2:44 PM EDT Inhaled Oxygen Concentration - - Weight 80.8 kg (178 lb 2.1 oz) 04/16/2025 2:44 P M EDT Height 165.1 cm (5' 5 ) 09/01/2024 10:57 AM EST Body Mass Index 29.64 09/01/2024 10:57 AM EST Plan of Treatment Upcoming Encounters Date Type Department Care Team (Late st Contact Info) Description 08/19/2025 1:40 PM EST Follow-Up [facility] Renal Transplant [address] [place] [address] Tito Patricio MD [address] [place] [address] Devante Juarez MD [address] [place] [address] 08/19/2025 2:00 PM EST Social Work [facility] Transplant [address] [place] [address] Tito Patricio MD [address] [place] [address] Thomas Freeman Health Maintenance Due Date Last [...] of 2) 2015 COVID-19 Vaccine (1 - 2023- season) 2024 Alcohol/Substance Use Screening 09/03/2024 Depression [...] Completed 09/01/2024 Procedures * Due to [place] [employer] law, this organization might not be sharing [...] Health Maintenance Results * Due to [place] [employer] law, this organization might not be sharing [...] % 0.5 % 09/01/2024 3:19 PM EST [facility] Neutrophil # 3.81 1.50 - 7.80 10*3/uL 09/01/2024 3:19 PM EST [facility] Immature Grans # <0.03 <=0.03 10*3/uL 09/01/2024 3:19 PM EST [facility] Lymphocyte # 1.80 0.85 - 3.90 10*3/uL 09/01/2024 3:19 PM EST [facility] Monocyte # 0.30 0.20 - 0.95 10*3/uL 09/01/2024 3:19 PM EST [facility] Eosinophil # 0.10 0.02 - 0.50 10*3/uL 09/01/2024 3:19 PM EST [facility] Basophil # <0.03 0.00 - 0.20 10*3/uL 09/01/2024 3:19 PM EST [facility] nRBC % 0.0 /100 WBCs 09/01/2024 3:19 PM EST [facility] nRBC # <0.01 <0.01 10*3/uL 09/01/2024 3:19 PM EST [facility] Blood Structure of peripheral vein / Unknown Venipuncture / Unknown 09/01/2024 2:46 PM EST 09/01/2024 3:10 PM EST us Tito Patricio MD LAB BLOOD ORDERABLES Final Resu lt [facility] [address] [place] [address], * Hepatitis C Antibody w/Reflex to PCR (09/01/2024 2:46 PM EST) Hepatitis C Antibody NON-REACT JILL NON-REACT JILL 09/02/2024 7:23 AM EST [facility] Comment: HCV antibody was non-reactive. There is no laboratory evidence of HCV infection. In most cases, no further action is required. However, if recent HCV exposure is suspected, a test for HCV RNA (test code 57681) is suggested. For additional information please refer to http://education.NaturalMotion/faq/BXI78z8 (This link is being provided for informational/ educational purposes only.) Blood Structure of peripheral vein / Unknown Venipuncture / Unknown 09/01/2024 2:46 PM EST 09/01/2024 3:07 PM EST Narrative [facility] 09/02/2024 7:23 AM EST [facility] Received Date: Tito Patricio MD LAB BLOOD ORDERABLES Final Resu lt Performing Organization Address City/[facility]/ZIP Co de Phone Number [address] [facility], [place] [address], [place] [phone] [facility] [address], [place] [address], [place] [phone] * (ABNORMAL) Phosphorus (09/01/2024 2:46 PM EST) Phosphorus 8.2(H) 2.5 - 4.5 mg/dL 09/01/2024 3:52 PM EST [facility] Blood Structure of peripheral vein / Unknown Venipuncture / Unknown 09/01/2024 2:46 PM EST 09/01/2024 3:10 PM EST us Tito Patricio MD LAB BLOOD ORDERABLES Final Resu lt Performing Organization Address City/[facility]/ZIP Co de Phone Number [facility] [address] [place] [phone], * (ABNORMAL) PTH, Intact (without Calcium) (09/01/2024 2:46 PM EST) Parathyroid Hormone, Intact 1488(H) 16 - 77 pg/mL 09/03/2024 7:22 AM EST [facility] Comment: Interpretive Guide Intact PTH Calcium ------- Normal Parathyroid Normal Normal Hypoparathyroidism Low or Low Normal Low Hyperparathyroidism Primary Normal or High High Secondary High Normal or Low Tertiary High High Non-Parathyroid Hypercalcemia Low or Low Normal High Blood Structure of peripheral vein / Unknown Venipuncture / Unknown 09/01/2024 2:46 PM EST 09/01/2024 3:10 PM EST Narrative [facility] - 09/03/2024 7:22 AM EST [facility] Received Date: us Tito Patricio MD LAB BLOOD ORDERABLES Final Resu lt [facility] [address] [place] [address], [facility] [address] [facility] 3rd [address], [place] [address], from Last 3 Months or Most Recently Relevant to Health Maintenance Insurance [facility] [id number] [employer] [place] [id number] Care Teams Brick Paver Relationship Specialty Start Date End Date Emanuel Scruggs [address] [place] [phone] PCP - General 03/22/17
[2025-04-19 08:49] LABS: Resp Syncy Virus RNA Qual PCR NEGATIVE (Negative); SARS COV2 PCR INHOUSE NEGATIVE (Negative)
--- NOTE | 2025-04-19 10:24 | ED.GENADULT ---
HPI - General Adult General Chief complaint: General Medical Stated complaint: missed dialysis on Sunday Time Seen by Provider: 04/19/25 10:07 Source: patient and survey questionnaire designer Mode of arrival: ambulatory Limitations: no limitations History of Present Illness ED Provider: DR. Miramontes HPI narrative: A 59-year-old female PMHx HTN, HLD, CKD stage 5 on HD M/W/F (as per history patient is noncompliant with HD), dysphagia, CAD, secondary hyperparathyroidism, anemia of chronic disease. Patient missed her dialysis on Sunday, patient also reported that she has been having blood in her bowel movement for the past 2 days, no abdominal pain, no nausea, no vomiting. No anticoagulation. Related Data Home Medications ?Medication ?Instructions ?Recorded ?Confirmed sevelamer HCl 800 mg tablet 800 mg PO TID 09/14/24 03/17/25 Previous Rx's ?Medication ?Instructions ?Recorded blood pressure monitor #1 ea 11/10/23 sitz bath #1 ea 11/13/23 Grab bar #1 ea 11/22/23 Shower Chair #1 ea 11/22/23 bed rail #1 ea 11/22/23 hand held shower #1 ea 11/22/23 pill box twice daily #1 ea 11/22/23 atorvastatin 80 mg tablet 80 mg PO BEDTIME 90 days #90 tabs 09/11/24 sitz bath #1 ea 09/11/24 recliner #1 ea 11/24/24 carvedilol 6.25 mg tablet 6.25 mg PO BID #180 tabs 01/27/25 gabapentin 100 mg capsule 100 mg PO TID #90 caps 02/17/25 Allergies Allergy/AdvReac Type Severity Reaction Status Date / Time Penicillins Allergy Intermediate RASH Verified 04/19/25 07:01 Review of Systems Review of Systems: All other systems are reviewed and are negative Constitutional: Reports as per HPI and Reports no additional constitutional complaints Eyes: Reports as per HPI and Reports no additional eye complaints Reports system reviewed and no additional complaints, except as documented Cardiovascular: Reports as per HPI and Reports no additional cardiovascular complaints Respiratory: Reports as per HPI and Reports no additional respiratory complaints Gastrointestinal: Reports as per HPI and Reports no additional gastrointestinal complaints Genitourinary: Reports no additional female genitourinary complaints Musculoskeletal: Reports no additional musculoskeletal complaints Skin/Breast: Reports system reviewed and no additional complaints, except as docu Psychiatric: Reports no additional psychiatric complaints Endocrine: Reports no additional endocrine complaints Hematologic/Lymphatic: Reports no additional hematologic/lymphatic complaints Allergic/Immunologic: Reports no additional allergic/immunologic complaints Reports system reviewed and no additional complaints, except as documented and Reports Abnormal speech present [facility] Past Medical History Medical History ESRD (end stage renal disease) on dialysis Cardiomyopathy Noncompliance of patient with renal dialysis ESRD (end stage renal disease) on dialysis Back pain Asthma History of blood transfusion NSTEMI (non-ST elevated myocardial infarction) Atrial fibrillation Acute on chronic kidney failure Secondary hyperparathyroidism (of renal origin) Anemia in chronic kidney disease (CKD) Chronic systolic (congestive) heart failure CKD (chronic kidney disease) stage 5, GFR less than 15 ml/min Essential hypertension Normocytic anemia Surgical History History of esophagogastroduodenoscopy (EGD) Hx of colonoscopy History of surgery Status post dilation and curettage History of abdominal surgery History of extraction of renal calculus History of tubal ligation Family History Family History Father Throat cancer Mother Hypertension Daughter In good health Daughter In good health Sister In good health Family/Other Breast cancer Social History Social History Household Members: None Housing: Apartment Housing Other:: studio Are you a primary rn progressive care unit to a significant other at home: No Do you presently have visiting nurse or other home services: Yes (SOLAR DESIGN ENGINEER/[facility]) Unable to assess alcohol history related to: Unknown Alcohol intake: never Comment: Pt declining bed alarm Patient Tobacco Use Status: Former Tobacco user Tobacco use type: Cigarette Years Smoked: 30 +/- e-Cigarette/Vaping Use: Never Used Second Hand Smoke Exposure: No Advance Directives: Yes Advance Directives on File: Yes Advance Directives Date on File: 11/21/23 service: No Current occupational status: unemployed Cognitive needs: No Hearing needs: No Vision needs: No Physical Exam ED Vital Signs: Vital Signs - 24 hr 04/19/25 07:00 04/19/25 10:40 04/19/25 11:55 Temperature 98.1 F 98.3 F 98.2 F Pulse Rate 88 67 76 Respiratory Rate 18 18 18 Blood Pressure 157/72 H 147/68 H 181/84 H Pulse Oximetry 95 98 97 Oxygen Delivery Method Room Air Room Air Room Air 04/19/25 12:45 Temperature 97.6 F Pulse Rate 69 Respiratory Rate 15 Blood Pressure 178/77 H Pulse Oximetry 96 Oxygen Delivery Method Room Air BMI result Body Mass Index 29.4 Vital signs have been reviewed and appear to be correct. Blood pressure elevated. Heart rate normal. Respiratory rate normal. Temperature normal. Oxygen saturation normal. Appearance: Alert. Oriented X3. No acute distress. Head: Normal external exam. Normocephalic. Atraumatic. No Hackett signs noted. No raccoon eyes noted Eyes: PERRLA. EOMI. Conjunctiva and sclera normal. Eyelids normal. ENT: TM's Normal. Pharynx normal. Uvula midline. Moist mucous membranes. No trismus noted. No drooling noted. No muffled voice noted. Neck: Normal inspection. Neck supple. FROM. No adenopathy. Thyroid Normal. No meningeal signs. No neck mass noted. CVS: Normal heart rate and rhythm. Heart sound normal. No murmurs noted. Pulses normal throughout. Respiratory: No respiratory distress. Painless inspiration. Breath sounds normal. No wheezes/rales/rhonchi noted. Chest nontender. No accessory muscle usage noted or decreased air movement noted. Abdomen: Soft and nontender. Bowel sounds normal in all 4 quadrants. No distention noted. No organomegaly noted. No visible injury noted. Rectal exam: No visible external hemorrhoid, no palpable internal hemorrhoid, +hematochezia stool. Back: No CVA tenderness. Full range of motion noted. Skin: Skin warm and dry. Normal skin color. Normal skin turgor. No rashes/lesions/lacerations noted. Extremities: No lower extremity edema. Extremities exhibit normal range of motion. Extremities nontender. Neuro: Oriented X 3. Cranial nerve exam: II-XII are grossly intact No motor deficit. No sensory deficit. Reflexes normal. Course Reevaluation(s) Reevaluation #1: 59-year-old female end-stage renal disease on dialysis missed Last dialysis, came in for rectal bleed. Exam shows hematochezia, drop of H&H will transfuse 1 unit of blood. Admit to the medical floor. Mild hyperkalemia with no EKG changes, case discussed with Dr. Jerez recommended to give 10 mg of Lokelma. Patient might need dialysis while in the hospital. Time: 12:38 Medical Decision Making Differential Diagnosis Differential Diagnoses: The differential diagnosis associated with the presentation includes (Colitis, rectal bleed, severe anemia, electrolyte derangement, emergent dialysis.) Admission/Observation Consideration of admission/observation: Escalation of care including admission/observation considered Consult Healthcare Provider Management of the patient was discussed with: Hospitalist (Dr. Correia) and Weatherization Coordinator (Dr. Jerez) Lab Data MDM Lab Attestation statement: I reviewed the patient's lab results. 04/19/25 10:30 04/19/25 10:30 Labs: Lab Results 04/19/25 04/19/25 04/19/25 Range/Units 08:02 10:30 10:32 WBC 5.7 (4.8-10.8) X10*3/uL RBC 2.60 L D (4.20-5.50) X10*6/uL Hgb 7.3 L D (12.0-16.0) g/dl Hct 23.0 L D (37.0-47.0) % MCV 88.5 (80.0-98.0) fL MCH 28.1 (27.0-33.0) pg MCHC 31.7 (31.0-35.0) g/dl RDW 16.1 H (11.0-16.0) % Plt Count 157 L D (160-400) X10*3/uL MPV 10.8 (9.4-12.3) fL Immature Gran % (Auto) 1.7 H (0.0-0.4) % Neut % (Auto) 58.6 (45-73) % Lymph % (Auto) 27.2 (20-40) % [place] % (Auto) 9.4 (2-11) % Eos % (Auto) 2.6 (0-4) % Baso % (Auto) 0.5 (0-2) % Lymph # (Auto) 1.6 (1.2-4.9) X10*3/uL [place] # (Auto) 0.5 (0.1-1.2) X10*3/uL Eos # (Auto) 0.2 (0.0-0.4) X10*3/uL Baso # (Auto) 0.0 (0.0-0.2) X10*3/uL Abs Immat Gran (auto) 0.10 H (0.00-0.03) X10*3/uL Absolute Neuts (auto) 3.4 (2.0-8.3) x10*3/uL Absolute Nucleated RBC 0.020 H (0.0-0.012) X10*3/uL Nucleated RBC % (auto) 0.3 H (0.0-0.2) /100WBC Smear Tech's Comments VERIFIED PT 9.3 L (10.9-12.4) SEC INR 0.8 L (0.9-1.1) Sodium 142 (135-145) mmol/L Potassium 5.7 H D (3.3-5.1) mmol/L Chloride 113 H (96-108) mmol/L Carbon Dioxide 13 L (22-29) mmol/L Anion Gap 22 H (12-20) BUN 103 H (9-16) mg/dL Creatinine 9.99 H* (0.5-1.4) mg/dL Estim Creat Clear Calc 6.3 Estimated GFR 4 Random Glucose 79 (60-115) mg/dL Calcium 8.3 L (8.4-10.2) mg/dL Magnesium 2.3 (1.6-2.6) mg/dL Total Bilirubin 0.3 (0.0-1.0) mg/dL AST 37 H (5-31) U/L ALT 8 (0-31) U/L Alkaline Phosphatase 133 H (39-117) U/L Total Protein 7.5 (6.5-8.0) g/dL Albumin 3.7 (3.5-5.0) g/dL Stool Occult Blood POSITIVE (NEGATIVE) Influenza Type A (PCR) NEGATIVE (Negative) Influenza Type B (PCR) NEGATIVE (Negative) RSV RNA Qual (PCR) NEGATIVE (Negative) SARS-CoV-2 RNA (RT-PCR) NEGATIVE (Negative) Blood Type A Positive Antibody Screen NEGATIVE Independent Interpretation I performed an independent interpretation of an: CT Scan (Abdomen pelvis:) Radiology Impression Discussion of test interpretation with radiology: I have reviewed the radiologist's reading. Critical Care Time Critical Care Time Critical Care Time: Yes Total Critical Care Time: 60 Attestation: The patient was critically ill with a high probability of imminent or life-threatening deterioration. I spent greater than 30 minutes of discontinuous time evaluating the patient, delivering critical care at the bedside, discussing evaluating data with consultants. Critical care time does not include time spent performing separately billable procedures or teaching. Time spent performing critical care was 60 minutes. Discharge Plan Discharge Clinical Impression: Rectal bleed, ESRD (end stage renal disease), Acute hyperkalemia Patient Disposition: Admitted As Inpatient Print Language: Russian
[2025-04-19 10:40] LABS: OBS Int Ctl Valid YES; OBS1 POSITIVE (NEGATIVE)
[2025-04-19 10:42] LABS: Hematocrit 23.0 % (37.0-47.0); Imm Gran Abs Auto 0.10 X10*3/uL (0.00-0.03); Imm Gran Pct Auto 1.7 % (0.0-0.4); Lymphocytes Absolute Auto 1.6 X10*3/uL (1.2-4.9); MANUAL DIFF FLAG SCAN; Mean Corpuscular HGB Conc 31.7 g/dl (31.0-35.0); Mean Corpuscular Hemoglobin 28.1 pg (27.0-33.0); Mean Corpuscular Volume 88.5 fL (80.0-98.0); NRBC Abs Auto 0.020 X10*3/uL (0.0-0.012); NRBC Pct Auto 0.3 /100WBC (0.0-0.2); PLT CLUMP 1; Red Blood Count 2.60 X10*6/uL (4.20-5.50); SCAN SMEAR FLAG 1
[2025-04-19 10:45] LABS: White Blood Count 5.7 X10*3/uL (4.8-10.8)
[2025-04-19 10:46] LABS: Hemoglobin 7.3 g/dl (12.0-16.0)
[2025-04-19 10:47] LABS: INTERNATIONAL NORM RATIO 0.8 (0.9-1.1); Prothrombin Time 9.3 SEC (10.9-12.4)
[2025-04-19 11:00] LABS: Platelet Count 157 X10*3/uL (160-400)
[2025-04-19 11:01] LABS: Alanine Aminotransferase 8 U/L (0-31); Albumin Level 3.7 g/dL (3.5-5.0); Alkaline Phosphatase 133 U/L (39-117); Anion Gap 22 (12-20); Aspartate Amino Transferase 37 U/L (5-31); Blood Urea Nitrogen 103 mg/dL (9-16); Calcium 8.3 mg/dL (8.4-10.2); Carbon Dioxide 13 mmol/L (22-29); Chloride 113 mmol/L (96-108); Creatinine Clr Calc Pharmacy 6.3; Estimated Glomerular Filt Rate 4; Magnesium 2.3 mg/dL (1.6-2.6); Potassium 5.7 mmol/L (3.3-5.1); Sodium 142 mmol/L (135-145); Total Protein 7.5 g/dL (6.5-8.0)
--- NOTE | 2025-04-19 13:34 | PC.NURSE ---
kathrin gillespie was late by 1-2 minutes. both RN's had been ready but once tech got to blood blank they needed 5 more minutes and tiger was sent with this message at 1312. This RN was pulled into other patient care in the meantime.
--- NOTE | 2025-04-19 14:17 | PM.IMHP ---
History of Present Illness Date of Service: 04/19/25 Attending physician on admission: Grayson Correia Chief Complaint: Rectal bleeding Pt is a 59-year-old female with a PMH significant for?EDRD on HD M/W/F, HTN, HFrEF (LVEF 40-45% on 11/2023), chronic iron deficiency anemia, and hx of noncompliance with medications or follow up appointments who presents to the ED with maroon-colored stool since Sunday. Pt reports on Sunday noticed that she had bright red blood in the toilet as well as maroon-colored stool. States she called dialysis and they told her to stay at home. Bleeding stopped on Sunday but returned again Sunday morning and pt decided to come to the ED for further evaluation. Denies abdominal or rectal pain. No nausea, vomiting, diarrhea. Some lightheadedness and dizziness she experienced while in the ED waiting room. No significant weakness or difficulty walking. Had a similar episode of rectal bleeding in September of this year when she was hospitalized. Underwent colonoscopy which found bleeding internal hemorrhoids that were treated conservatively. No SOB or difficulty breathing. No chest pain/pressure, palpitations. In the ED pt was hypertensive up to 181/84, vitals otherwise stable and WNL. Labs were significant for H&H 7.3/23.0, potassium 5.7, anion gap 22, BUN 103, creatinine 9.99 AST 37, alk-phos 133. Stool positive for occult blood. CT of abdomen/pelvis wo contrast negative for acute abdomen; no evidence of bleeding. EKG demonstrated sinus rhythm with PACs but no evidence of significant ST elevations or depressions, or peaked T-waves.. Pt was treated in the ED with Lokelma. Pt is admitted to the hospital for treatment and further evaluation of electrolyte abnormalities in the setting of missed dialysis as well as acute on chronic anemia and bright red blood per rectum concern for lower GI bleed. Review of Systems Review of Systems: Negative except for that which is stated in the HPI. [facility] Medical History ESRD (end stage renal disease) on dialysis Cardiomyopathy Noncompliance of patient with renal dialysis ESRD (end stage renal disease) on dialysis Back pain Asthma History of blood transfusion NSTEMI (non-ST elevated myocardial infarction) Atrial fibrillation Acute on chronic kidney failure Secondary hyperparathyroidism (of renal origin) Anemia in chronic kidney disease (CKD) Chronic systolic (congestive) heart failure CKD (chronic kidney disease) stage 5, GFR less than 15 ml/min Essential hypertension Normocytic anemia Family History Father Throat cancer Mother Hypertension Daughter In good health Daughter In good health Sister In good health Family/Other Breast cancer Surgical History History of esophagogastroduodenoscopy (EGD) Hx of colonoscopy History of surgery Status post dilation and curettage History of abdominal surgery History of extraction of renal calculus History of tubal ligation Social History Household Members: None Housing: Apartment Housing Other:: studio Are you a primary home care administrator to a significant other at home: No Do you presently have visiting nurse or other home services: Yes (INSOLE FILLER/[facility]) Unable to assess alcohol history related to: Unknown Alcohol intake: never Comment: Pt declining bed alarm Patient Tobacco Use Status: Former Tobacco user Tobacco use type: Cigarette Years Smoked: 30 +/- Smoked in Last 30 Days: No e-Cigarette/Vaping Use: Never Used Second Hand Smoke Exposure: No Use of substances other than those prescribed or required for medical reasons: No Advance Directives: Yes Advance Directives on File: Yes Advance Directives Date on File: 11/21/23 service: No Current occupational status: unemployed Cognitive needs: No Hearing needs: No Vision needs: No Meds Allergies Allergy/AdvReac Type Severity Reaction Status Date / Time Penicillins Allergy Intermediate RASH Verified 04/19/25 07:01 Home Medications ?Medication ?Instructions ?Recorded ?Confirmed ?Last Taken ?Type sevelamer HCl 800 mg tablet 800 mg PO QIDWMHS 09/14/24 04/19/25 02/15/25 History oxycodone 5 mg tablet 5 mg PO Q6H PRN Pain (Scale Score 04/19/25 04/19/25 Unknown History 4-6) Physical Exam Vital Signs and Narrative: Vital Signs: Last Vital Signs Temp 97.8 F 04/19/25 13:48 Pulse 67 04/19/25 13:48 Resp 16 04/19/25 13:48 BP 156/72 H 04/19/25 13:48 Pulse Ox 96 04/19/25 12:45 O2 Del Method Room Air 04/19/25 12:45 BMI result Body Mass Index 29.4 General: AOx3, no acute distress Resp: CTA bilaterally CVS: S1, S2, RRR GI: +BS, NT, no distention Skin: Warm, dry Neuro: Cranial nerves II-XII grossly intact bilaterally. Motor grossly intact bilaterally Extremities: No edema Psych: Appropriate affect Results Labs 04/19/25 10:30 04/19/25 10:30 Labs: Laboratory Results - last 24 hr 04/19/25 04/19/25 04/19/25 08:02 10:30 10:32 MCV 88.5 MCH 28.1 MCHC 31.7 RDW 16.1 H Plt Count 157 L D MPV 10.8 Immature Gran % (Auto) 1.7 H Neut % (Auto) 58.6 Lymph % (Auto) 27.2 [place] % (Auto) 9.4 Eos % (Auto) 2.6 Baso % (Auto) 0.5 Lymph # (Auto) 1.6 [place] # (Auto) 0.5 Eos # (Auto) 0.2 Baso # (Auto) 0.0 Abs Immat Gran (auto) 0.10 H Absolute Neuts (auto) 3.4 Absolute Nucleated RBC 0.020 H Nucleated RBC % (auto) 0.3 H Smear Tech's Comments VERIFIED PT 9.3 L INR 0.8 L Anion Gap 22 H Estim Creat Clear Calc 6.3 Estimated GFR 4 Random Glucose 79 Calcium 8.3 L Magnesium 2.3 Total Bilirubin 0.3 AST 37 H ALT 8 Alkaline Phosphatase 133 H Total Protein 7.5 Albumin 3.7 Stool Occult Blood POSITIVE Influenza Type A (PCR) NEGATIVE Influenza Type B (PCR) NEGATIVE RSV RNA Qual (PCR) NEGATIVE SARS-CoV-2 RNA (RT-PCR) NEGATIVE Blood Type A Positive Antibody Screen NEGATIVE Crossmatch (AHG) See Detail Assessment and Plan (1) ESRD (end stage renal disease) on dialysis: Status: Acute (2) Acute hyperkalemia: Status: Acute Plan Pt is a 59-year-old female with a PMH significant for?EDRD on HD M/W/F, HTN, HFrEF (LVEF 40-45% on 11/2023), chronic iron deficiency anemia, and hx of noncompliance with medications or follow up appointments who presents to the ED with maroon-colored stool since Sunday. Pt is admitted to the hospital for treatment and further evaluation of electrolyte abnormalities in the setting of missed dialysis as well as acute on chronic anemia and bright red blood per rectum concern for lower GI bleed. Acute on chronic blood loss anemia H&H 7.3/23.0 Reports maroon colored stool and bright red blood in the toilet on Sunday and again this morning Had similar episode in September where she underwent colonoscopy and found to have bleeding internal hemorrhoids that were treated conservatively Transfused 1 unit PRBCs in the ED GI consult NPO past midnight for possible colonoscopy Monitor H&H ESRD on HD // with Hyperkalemia Creatinine 0.99, Potassium 5.7 at time of presentation, given Lokelma in the ED In the setting of missed dialysis on Sunday due to hematochezia Nephrology consult for HD inpatient; [place] [facility] [place] [facility] Follow BMP Continue phosphate binder Monitor on telemetry HTN Continue carvedilol Chronic pain Continue home opioids Full Code Attending:?Dr. Correia DVT Prophylaxis: Pneumatic compression Pt will require a hospitalization of at least two nights for treatment of?hyperkalemia in the setting of missed dialysis at bright red blood per rectum concerning for lower GI bleed. Quality Stroke Does the patient have a stroke diagnosis?: No VTE Prior VTE?: No VTE Risk Level:: Medical - moderate - high VTE Device Contraindication: N/A - Device Ordered VTE Drug Contraindication: Treatment Not Indicated
--- NOTE | 2025-04-19 17:45 | PHA.MEDREC ---
Pharmacy Consult ? Medication Reconciliation Pharmacy has completed the medication reconciliation.Med rec complete, spoke to patient's daughter, who is faroese speaking. Patient may be non compliant only listed a few medications they are currently taking. There is some past pharmacy history of atorvastatin, amlodipine, metoprolol, its unclear if these were discontinued or patient just ran out of refills and stopped taking.
--- NOTE | 2025-04-19 19:14 | PC.NURSE ---
Patient alert and oriented x4, VSS. Patient offers no complaints at present, call hoffman in patient's reach. Dr. Jackson at bedside with director of capital giving assessing patient.
[2025-04-19] MEDS: Sevelamer Carbonate Tablet 800 MG TABLET PO (21:59)
[2025-04-20] VITALS (10 sets, daily range): BP systolic 104–155; BP diastolic 68–93; PULSE 61–82; RESP 16–20; TEMP 35.9–36.8; O2SAT 97–100; BMI 29.0
[2025-04-20] MEDS: 0.9 % Sodium Chloride Flush 3 ML SYRINGE IVFLUSH ×4 (00:23→20:17)
[2025-04-20 04:40] LABS: Hematocrit 27.5 % (37.0-47.0); Hemoglobin 8.7 g/dl (12.0-16.0); Mean Corpuscular HGB Conc 31.6 g/dl (31.0-35.0); Mean Corpuscular Hemoglobin 28.5 pg (27.0-33.0); Mean Corpuscular Volume 90.2 fL (80.0-98.0); NRBC Abs Auto 0.030 X10*3/uL (0.0-0.012); NRBC Pct Auto 0.6 /100WBC (0.0-0.2); Platelet Count 192 X10*3/uL (160-400); Red Blood Count 3.05 X10*6/uL (4.20-5.50); White Blood Count 5.1 X10*3/uL (4.8-10.8)
[2025-04-20 05:04] LABS: Anion Gap 20 (12-20); Blood Urea Nitrogen 96 mg/dL (9-16); Calcium 8.3 mg/dL (8.4-10.2); Carbon Dioxide 14 mmol/L (22-29); Chloride 114 mmol/L (96-108); Creatinine Clr Calc Pharmacy 6.5; Estimated Glomerular Filt Rate 4; Potassium 4.7 mmol/L (3.3-5.1); Sodium 143 mmol/L (135-145)
[2025-04-20] MEDS: Sevelamer Carbonate Tablet 800 MG TABLET PO ×4 (09:41→20:15)
--- NOTE | 2025-04-20 09:47 | MHC.CM.PN ---
Patient is unavailable; CM spoke with Daughter/HCP/Iris @ [phone] and addressed IMM with her (original will be mailed certified letter to Daughter and a copy will be placed on the chart). 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 Patient has a [employer] [facility] 43 hours/week and HD Q M/W/F @ [facility], in [place];home/resume said services is the goal and CM has initiated and will follow for dc planning. PCP is Dr. Britt Matos and Daughter will transport to home at time of dc.
--- NOTE | 2025-04-20 11:18 | PC.NURSE ---
Pt placed on telepack for HD, sent to HD via
--- NOTE | 2025-04-20 12:12 | PM.CNNEP ---
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 Nephrology consulted for management of dialysis while hospitalized. patient reports she missed dialysis on Sunday. 04/17 due to bloody stools facility advised she not come. Reports she only missed one session, reports had dialysis on Sunday, 04/15. She states she feels well. Denies abdominal pain, flank pain, urinary symptoms, chest pain, shortness of breath. States she is hungry, otherwise feels well. Review of Systems Review of Systems Yes all other systems are reviewed and are negative [facility] Past Medical History Medical History ESRD (end stage renal disease) on dialysis Cardiomyopathy Noncompliance of patient with renal dialysis ESRD (end stage renal disease) on dialysis Back pain Asthma History of blood transfusion NSTEMI (non-ST elevated myocardial infarction) Atrial fibrillation Acute on chronic kidney failure Secondary hyperparathyroidism (of renal origin) Anemia in chronic kidney disease (CKD) Chronic systolic (congestive) heart failure CKD (chronic kidney disease) stage 5, GFR less than 15 ml/min Essential hypertension Normocytic anemia Family History Family History Father Throat cancer Mother Hypertension Daughter In good health Daughter In good health Sister In good health Family/Other Breast cancer Surgical History Surgical History History of esophagogastroduodenoscopy (EGD) Hx of colonoscopy History of surgery Status post dilation and curettage History of abdominal surgery History of extraction of renal calculus History of tubal ligation Social History Social History Household Members: None Housing: Apartment Housing Other:: studio Are you a primary healthcare liaison to a significant other at home: No Do you presently have visiting nurse or other home services: Yes (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[employer]) Unable to assess alcohol history related to: Unknown Alcohol intake: never Comment: Pt declining bed alarm Patient Tobacco Use Status: Former Tobacco user Tobacco use type: Cigarette Years Smoked: 30 +/- e-Cigarette/Vaping Use: Never Used Second Hand Smoke Exposure: No Advance Directives Date on File: 11/21/23 service: No Current occupational status: unemployed Cognitive needs: No Hearing needs: No Vision needs: No Meds Allergies Allergy/AdvReac Type Severity Reaction Status Date / Time Penicillins Allergy Intermediate RASH Verified 04/19/25 07:01 Active Medications: Current Medications Acetaminophen (Acetaminophen 325 Mg Tablet) 650 mg PO Q6H PRN PRN Reason: Pain, Mild 1-3,fever,headache Calcium Carbonate (Calcium Carbonate 750 Mg Tab.Chew) 750 mg PO Q4H PRN PRN Reason: Heartburn Carvedilol (Carvedilol 6.25 Mg Tablet) 6.25 mg PO BID [facility]; Protocol Last Admin: 04/20/25 09:41 Dose: 6.25 mg Gabapentin (Gabapentin 100 Mg Capsule) 100 mg PO TID [facility] Last Admin: 04/20/25 09:41 Dose: 100 mg Magnesium Hydroxide (Milk Of Magnesia 30 Ml Oral.Susp) 30 ml PO DAILY PRN PRN Reason: Constipation Melatonin (Melatonin 3 Mg Tablet) 6 mg PO BEDTIME PRN PRN Reason: Insomnia Oxycodone HCl (Oxycodone Hcl Immed Release 5 Mg Tablet) 5 mg PO Q6H PRN PRN Reason: Pain (Scale Score 4-6) Sevelamer Carbonate (Sevelamer Carbonate Tablet 800 Mg Tablet) 800 mg PO QIDWMHS [facility] Last Admin: 04/20/25 09:41 Dose: 800 mg Sodium Chloride (0.9 % Sodium Chloride Flush 3 Ml Syringe) [facility] Last Admin: 04/20/25 09:40 Dose: 3 ml Home Medications ?Medication ?Instructions ?Recorded ?Confirmed ?Last Taken ?Type sevelamer HCl 800 mg tablet 800 mg PO QIDWMHS 09/14/24 04/19/25 02/15/25 History oxycodone 5 mg tablet 5 mg PO Q6H PRN Pain (Scale Score 04/19/25 04/19/25 Unknown History 4-6) Physical Exam Vital Signs: Last Vital Signs Temp 97.7 F 04/20/25 05:20 Pulse 75 04/20/25 09:41 Resp 16 04/20/25 09:39 BP 150/80 H 04/20/25 09:41 Pulse Ox 100 04/20/25 09:39 O2 Del Method Room Air 04/20/25 09:39 BMI result Body Mass Index 29.4 Const General: no acute distress, alert and awake Resp Effort & Inspection: normal respiratory effort and able to speak in complete sentences Auscultation: clear to auscultation bilaterally Cardio Rate: regular rate Rhythm: regular rhythm Heart sounds: S1 normal heart sound present and S2 normal heart sound present GI Palpation (GI): Soft to palpation and nontender Skin Rashes: no rashes Extrem General: No edema Results Lab Results 04/20/25 03:46 04/20/25 03:46 Lab results: Chemistry 04/19/25 04/20/25 10:30 03:46 Sodium 142 143 Potassium 5.7 H D 4.7 Carbon Dioxide 13 L 14 L BUN 103 H 96 H Creatinine 9.99 H* 9.58 H* Calcium 8.3 L 8.3 L Hematology 04/19/25 04/20/25 10:30 03:46 WBC 5.7 5.1 Hgb 7.3 L D 8.7 L Plt Count 157 L D 192 Assessment and Plan (1) ESRD (end stage renal disease) on dialysis: Status: Inactive Plan ESRD on HD MWF, missed last session. Dialysis today. has left permcath in place without swelling/erythema patient does not appear to be significantly fluid overloaded H&H 8.7 &27.5, given GIB will hold off on procrit. will check phosphorous levels recommend low potassium, low phosphorus, low sodium diet fluid restriction 1.5L/24 hours recommend regular blood pressure checks, I&O monitoring continue supportive care will continue to follow Discussed with Dr Miranda. Procedures Date of Service Date of Service: 04/20/25
[2025-04-20 15:45] LABS: Hematocrit 30.4 % (37.0-47.0); Hemoglobin 9.8 g/dl (12.0-16.0)
--- NOTE | 2025-04-20 17:47 | P.PNIM_ITS ---
Subjective Subjective Date of Service: 04/20/25 Interval History: Pt had another bloody BM today after which she felt lightheaded and dizzy, seen by GI, flex sig tomorrow, Review of Systems -ve except as stated above Physical Exam 2 Vital Signs: Vital Signs: Last Vital Signs Temp 97.4 F 04/20/25 15:42 Pulse 80 04/20/25 15:42 Resp 20 04/20/25 15:42 BP 126/93 H 04/20/25 15:42 Pulse Ox 100 04/20/25 15:42 O2 Del Method Room Air 04/20/25 15:42 BMI result Body Mass Index 29.0 General: AOx3, no acute distress Resp: CTA bilaterally CVS: S1, S2, RRR GI: +BS, NT, no distention Skin: Warm, dry Neuro: Cranial nerves II-XII grossly intact bilaterally. Motor grossly intact bilaterally Extremities: No edema Psych: Appropriate affect Objective Data Active Medications Acetaminophen (Acetaminophen 325 Mg Tablet) 650 mg PO Q6H PRN PRN Reason: Pain, Mild 1-3,fever,headache Last Admin: 04/20/25 14:18 Dose: 650 mg Documented By: ISAIAH Calcium Carbonate (Calcium Carbonate 750 Mg Tab.Chew) 750 mg PO Q4H PRN PRN Reason: Heartburn Carvedilol (Carvedilol 6.25 Mg Tablet) 6.25 mg PO BID [facility]; Protocol Last Admin: 04/20/25 09:41 Dose: 6.25 mg Documented By: MARK ANTHONY Gabapentin (Gabapentin 100 Mg Capsule) 100 mg PO TID [facility] Last Admin: 04/20/25 14:18 Dose: 100 mg Documented By: ISAIAH Magnesium Hydroxide (Milk Of Magnesia 30 Ml Oral.Susp) 30 ml PO DAILY PRN PRN Reason: Constipation Melatonin (Melatonin 3 Mg Tablet) 6 mg PO BEDTIME PRN PRN Reason: Insomnia Oxycodone HCl (Oxycodone Hcl Immed Release 5 Mg Tablet) 5 mg PO Q6H PRN PRN Reason: Pain (Scale Score 4-6) Sevelamer Carbonate (Sevelamer Carbonate Tablet 800 Mg Tablet) 800 mg PO QIDWMHS [facility] Last Admin: 04/20/25 17:38 Dose: 800 mg Documented By: ISAIAH Sodium Chloride (0.9 % Sodium Chloride Flush 3 Ml Syringe) 3 ml IVFLUSH QSHIFT [facility] Last Admin: 04/20/25 14:14 Dose: 3 ml Documented By: ISAIAH Labs 04/20/25 15:33 04/20/25 03:46 Labs: Laboratory Results - last 24 hr 04/20/25 03:46 MCV 90.2 MCH 28.5 MCHC 31.6 RDW 15.9 Plt Count 192 MPV 10.3 Absolute Nucleated RBC 0.030 H Nucleated RBC % (auto) 0.6 H Anion Gap 20 Estim Creat Clear Calc 6.5 Estimated GFR 4 Random Glucose 77 Calcium 8.3 L Assessment and Plan (1) Essential hypertension: Status: Acute (2) Rectal bleed: Status: Acute (3) GI bleed: Status: Acute Plan Pt is a 59-year-old female with a PMH significant for?EDRD on HD M/W/F, HTN, HFrEF (LVEF 40-45% on 11/2023), chronic iron deficiency anemia, and hx of noncompliance with medications or follow up appointments who presents to the ED with maroon-colored stool since Sunday. Pt is admitted to the hospital for treatment and further evaluation of electrolyte abnormalities in the setting of missed dialysis as well as acute on chronic anemia and bright red blood per rectum concern for lower GI bleed. Acute on chronic blood loss anemia H&H 7.3/23.0 Reports maroon colored stool and bright red blood in the toilet on Sunday and again this morning Had similar episode in September where she underwent colonoscopy and found to have bleeding internal hemorrhoids that were treated conservatively Transfused 1 unit PRBCs in the ED GI consulted, NPO after Mn for flex sig tomorrow Monitor H&H ESRD on HD M/W/F with Hyperkalemia Creatinine 0.99, Potassium 5.7 at time of presentation, given Lokelma in the ED In the setting of missed dialysis on Sunday due to hematochezia Nephrology consult for HD inpatient; follows with [facility] [place] [facility] Follow BMP Continue phosphate binder Monitor on telemetry HTN Continue carvedilol Chronic pain Continue home opioids Full Code Attending:?Dr. Correia DVT Prophylaxis: Pneumatic compression Pt will require a hospitalization of at least two nights for treatment of?h yperkalemia in the setting of missed dialysis at bright red blood per rectum concerning for lower GI bleed. Quality Stroke Does the patient have a stroke diagnosis?: No VTE Prior VTE?: No VTE Risk Level:: Medical - moderate - high VTE Device Contraindication: N/A - Device Ordered VTE Drug Contraindication: Treatment Not Indicated
--- NOTE | 2025-04-20 18:39 | PM.GICN ---
History of Present Illness Data of Consult Service Date: 04/20/25 Requesting physician: Kana Alas Primary Care Provider: Britt De MD HPI Reason for consult: Rectal bleeding 59 year old Sudanese-speaking female with ESRD on HD M/W/F, HTN, HFrEF (LVEF 40-45% on 11/2023), chronic iron deficiency anemia, and hx of noncompliance with medications or follow up appointments seen at [facility] ED on 04/19/25 with maroon-colored stool since Sunday. Pt reports on Sunday noticed that she had bright red blood in the toilet as well as maroon-colored stool. States she called dialysis and they told her to stay at home. Pt notes the bleeding stopped on Sunday but returned again Sunday morning and pt decided to come to the ED for further evaluation. Pt denies abdominal or rectal pain, nausea, vomiting, diarrhea. She experienced some lightheadedness and dizziness while in the ED waiting room. No significant weakness or difficulty walking. No SOB or difficulty breathing. No chest pain/pressure, palpitations. In the ED pt was hypertensive up to 181/84, vitals otherwise stable and WNL. Labs were significant for H&H 7.3/23.0, potassium 5.7, anion gap 22, BUN 103, creatinine 9.99 AST 37, alk-phos 133. Stool positive for occult blood. Pt was treated in the ED with Lokelma. Pt is admitted to the hospital for treatment and further evaluation of electrolyte abnormalities in the setting of missed dialysis as well as acute on chronic anemia and bright red blood per rectum concern for lower GI bleed. 04/19/[address] SCAN SHOWED: Multiple distal right renal artery aneurysms with calcified wall unchanged from previous exam. No noncontrast evidence of aneurysm leakage. No enteric intraluminal or extra luminal abnormal blood fluid collections on noncontrast imaging. PAST GI HISTORY BY REVIEW OF MEDICAL RECORDS: Patient was hospitalized from 09/06 t0 09/11/24 with acute on chronic anemia in the setting of lower GI bleeding and worsening renal failure. She was transfused 4 units of PRBC 09/10/24 EGD AND COLONOSCOPY WERE PERFORMED BY DR. MADRIGAL: Impression: 1. Normal esophagus 2. Normal stomach 3. Normal duodenum 4. Normal colon and terminal ileum mucosa 5. 2 adenomatous polyps removed 6. Large bleeding internal hemorrhoids Recommendations:?? Follow-up path results Bleeding source appears to be internal hemorrhoids Anusol suppositories Sitz baths Consider surgical consultation if pt continues to have significant LGIB. Repeat colonoscopy for polyp surveillance in 3 years if its an adenoma. Review of Systems Review of Systems: Yes all other systems are reviewed and are negative [facility] Past Medical History Medical History ESRD (end stage renal disease) on dialysis Cardiomyopathy Noncompliance of patient with renal dialysis ESRD (end stage renal disease) on dialysis Back pain Asthma History of blood transfusion NSTEMI (non-ST elevated myocardial infarction) Atrial fibrillation Acute on chronic kidney failure Secondary hyperparathyroidism (of renal origin) Anemia in chronic kidney disease (CKD) Chronic systolic (congestive) heart failure CKD (chronic kidney disease) stage 5, GFR less than 15 ml/min Essential hypertension Normocytic anemia Family History Family History Father Throat cancer Mother Hypertension Daughter In good health Daughter In good health Sister In good health Family/Other Breast cancer Surgical History Surgical History History of esophagogastroduodenoscopy (EGD) Hx of colonoscopy History of surgery Status post dilation and curettage History of abdominal surgery History of extraction of renal calculus History of tubal ligation Social History Social History Household Members: None Housing: Apartment Housing Other:: studio Are you a primary health care aide to a significant other at home: No Do you presently have visiting nurse or other home services: No Unable to assess alcohol history related to: Unknown Alcohol intake: never Comment: Pt declining bed alarm Patient Tobacco Use Status: Former Tobacco user Tobacco use type: Cigarette Years Smoked: 30 +/- e-Cigarette/Vaping Use: Never Used Second Hand Smoke Exposure: No Advance Directives Date on File: 11/21/23 service: No Current occupational status: unemployed Cognitive needs: No Hearing needs: No Vision needs: No Meds Allergies Allergy/AdvReac Type Severity Reaction Status Date / Time Penicillins Allergy Intermediate RASH Verified 04/19/25 07:01 Active Medications: Current Medications Acetaminophen (Acetaminophen 325 Mg Tablet) 650 mg PO Q6H PRN PRN Reason: Pain, Mild 1-3,fever,headache Last Admin: 04/20/25 14:18 Dose: 650 mg Calcium Carbonate (Calcium Carbonate 750 Mg Tab.Chew) 750 mg PO Q4H PRN PRN Reason: Heartburn Carvedilol (Carvedilol 6.25 Mg Tablet) 6.25 mg PO BID [facility]; Protocol Last Admin: 04/20/25 09:41 Dose: 6.25 mg Gabapentin (Gabapentin 100 Mg Capsule) 100 mg PO TID [facility] Last Admin: 04/20/25 14:18 Dose: 100 mg Magnesium Hydroxide (Milk Of Magnesia 30 Ml Oral.Susp) 30 ml PO DAILY PRN PRN Reason: Constipation Melatonin (Melatonin 3 Mg Tablet) 6 mg PO BEDTIME PRN PRN Reason: Insomnia Oxycodone HCl (Oxycodone Hcl Immed Release 5 Mg Tablet) 5 mg PO Q6H PRN PRN Reason: Pain (Scale Score 4-6) Sevelamer Carbonate (Sevelamer Carbonate Tablet 800 Mg Tablet) 800 mg PO QIDWMHS [facility] Last Admin: 04/20/25 17:38 Dose: 800 mg Sodium Chloride (0.9 % Sodium Chloride Flush 3 Ml Syringe) 3 ml IVFLUSH QSHIFT [facility] Last Admin: 04/20/25 14:14 Dose: 3 ml Home Medications ?Medication ?Instructions ?Recorded ?Confirmed ?Last Taken ?Type sevelamer HCl 800 mg tablet 800 mg PO QIDWMHS 09/14/24 04/19/25 02/15/25 History oxycodone 5 mg tablet 5 mg PO Q6H PRN Pain (Scale Score 04/19/25 04/19/25 Unknown History 4-6) Physical Exam Vital Signs: Vital Signs: Last Vital Signs Temp 97.4 F 04/20/25 15:42 Pulse 80 04/20/25 15:42 Resp 20 04/20/25 15:42 BP 126/93 H 04/20/25 15:42 Pulse Ox 100 04/20/25 15:42 O2 Del Method Room Air 04/20/25 15:42 BMI result Body Mass Index 29.0 Const: General: no acute distress Nutritional Appearance: overweight Orientation/consciousness: patient oriented x3 Limitations: language barrier HEENT: Head: Yes normal to inspection Ears: hearing grossly normal bilaterally Eyes: Sclerae: sclerae normal Pupils: Equal, round and reactive pupils present Neck: Neck: Yes normal visual inspection Chest: Chest palpation & inspection: normal inspection of the chest Resp: Effort & Inspection: normal respiratory effort Auscultation: clear to auscultation bilaterally Cardio: Palpation: normal PMI Rate: regular rate Rhythm: regular rhythm Heart sounds: S1 normal heart sound present, S2 normal heart sound present and no murmurs GI: Palpation (GI): Soft to palpation, nontender and No hepatosplenomegaly present Auscultation: normal bowel sounds Rectal Exam - Female: deferred Skin: General skin exam: no rashes or lesions noted Neuro: General: patient oriented x3, gait normal and moves all extremities Cranial nerves: Yes Equal, round and reactive pupils present Psych: Appearance: grossly normal Mental Status: mental status grossly normal Results Labs 04/20/25 15:33 04/20/25 03:46 Labs: Short CBC 04/20/25 04/20/25 Range/Units 03:46 15:33 WBC 5.1 (4.8-10.8) X10*3/uL Hgb 8.7 L 9.8 L (12.0-16.0) g/dl Hct 27.5 L 30.4 L (37.0-47.0) % Plt Count 192 (160-400) X10*3/uL BMP 04/20/25 03:46 Sodium 143 Potassium 4.7 Chloride 114 H Carbon Dioxide 14 L BUN 96 H Creatinine 9.58 H* Calcium 8.3 L Assessment and Plan (1) Bleeding hemorrhoids: Status: Acute (2) GI bleed: Status: Acute Plan 59 year old Sudanese-speaking female with ESRD on HD M/W/F, HTN, HFrEF (LVEF 40-45% on 11/2023), chronic iron deficiency anemia, and hx of noncompliance with medications or follow up appointments seen at [facility] ED on 04/19/25 with maroon-colored stool since Sunday. Pt reports on Sunday noticed that she had bright red blood in the toilet as well as maroon-colored stool. Pt had large bleeding hemorrhoids on colonoscopy 8 months ago. Rectal bleeding likely from hemorrhoids versus rectal ulcerations from hard stools due to constipation. RECOMMENDATIONS: 1. Monitor CBC daily and transfuse prn 2. Miralax twice daily for constipation. 3. Further evaluation with Flexible sigmoidoscopy in the am. Procedures Date of Service Date of Service: 04/20/25
[2025-04-21] VITALS (10 sets, daily range): BP systolic 106–155; BP diastolic 51–78; PULSE 65–87; RESP 12–17; TEMP 36.1–36.9; O2SAT 94–98
[2025-04-21 07:42] LABS: Hematocrit 27.9 % (37.0-47.0); Hemoglobin 9.0 g/dl (12.0-16.0); Mean Corpuscular HGB Conc 32.3 g/dl (31.0-35.0); Mean Corpuscular Hemoglobin 29.0 pg (27.0-33.0); Mean Corpuscular Volume 90.0 fL (80.0-98.0); NRBC Abs Auto 0.030 X10*3/uL (0.0-0.012); NRBC Pct Auto 0.5 /100WBC (0.0-0.2); Platelet Count 149 X10*3/uL (160-400); Red Blood Count 3.10 X10*6/uL (4.20-5.50); White Blood Count 5.9 X10*3/uL (4.8-10.8)
[2025-04-21 08:00] LABS: Anion Gap 20 (12-20); Blood Urea Nitrogen 75 mg/dL (9-16); Calcium 8.5 mg/dL (8.4-10.2); Carbon Dioxide 21 mmol/L (22-29); Chloride 106 mmol/L (96-108); Creatinine Clr Calc Pharmacy 7.3; Estimated Glomerular Filt Rate 5; Potassium 4.9 mmol/L (3.3-5.1); Sodium 142 mmol/L (135-145)
--- NOTE | 2025-04-21 09:40 | HO.ANESPROP2 ---
HPI - Anesthesia Eval Consult details Narrative: 59 yr old female for flex sigmoidoscopy No CP/SOB with walking No recent illness ESRD: last dialysis 04/20/25, on renal transplant list Cardiomyopathy: most recent echo below, EF 50%, basal inferior segnment hypokinesis H/O NSTEMI 09/2024: last saw cards 03/2025, nuclear stress test ordered but not completed Atrial fibrillation with rapid ventricular response: ?last episode 09/2024, currently rate controlled on carvedilol, not on blood thinners due to GIB PMFSH Active Problems Active Problems: All Active Problems Acute hyperkalemia (Acute) ESRD (end stage renal disease) (Acute) Rectal bleed (Acute) Nausea and vomiting (Acute) Hyperkalemia (Acute) ESRD (end stage renal disease) on dialysis (Acute) Cardiomyopathy (Acute) Acute hypernatremia (Acute) Itchy skin (Acute) Leg weakness, bilateral (Acute) Anemia due to chronic kidney disease (Acute) NSTEMI (non-ST elevated myocardial infarction) (Acute) Atrial fibrillation with rapid ventricular response (Acute) GI bleed (Acute) Anemia (Acute) Vitamin D deficiency (Acute) Metabolic acidosis (Acute) Physical exam (Acute) Hernia (Acute) Hospital discharge follow-up (Acute) Iron deficiency (Acute) Bleeding hemorrhoids (Acute) Screening for cervical cancer (Acute) Physical exam (Acute) Weight loss (Acute) Dysphagia (Acute) Rash (Acute) Obesity (BMI 30-39.9) (Acute) Adult general medical exam (Acute) Colonoscopy refused (Acute) Asthma (Acute) Abdominal hernia (Acute) Screening for breast cancer (Acute) Edema (Acute) Essential hypertension (Acute) Secondary hyperparathyroidism (of renal origin) (Acute) Normocytic anemia (Acute) Past Medical History Medical History ESRD (end stage renal disease) on dialysis Cardiomyopathy Noncompliance of patient with renal dialysis ESRD (end stage renal disease) on dialysis Back pain Asthma History of blood transfusion NSTEMI (non-ST elevated myocardial infarction) Atrial fibrillation Acute on chronic kidney failure Secondary hyperparathyroidism (of renal origin) Anemia in chronic kidney disease (CKD) Chronic systolic (congestive) heart failure CKD (chronic kidney disease) stage 5, GFR less than 15 ml/min Essential hypertension Normocytic anemia Family History Family History Father Throat cancer Mother Hypertension Daughter In good health Daughter In good health Sister In good health Family/Other Breast cancer Family history of problems with anesthesia: No Surgical History Surgical History History of esophagogastroduodenoscopy (EGD) Hx of colonoscopy History of surgery Status post dilation and curettage History of abdominal surgery History of extraction of renal calculus History of tubal ligation History of Problems with Anesthesia: No Social History Social History Household Members: None Housing: Apartment Housing Other:: studio Are you a primary cattle care worker to a significant other at home: No Do you presently have visiting nurse or other home services: No Unable to assess alcohol history related to: Unknown Alcohol intake: never Comment: Pt declining bed alarm Patient Tobacco Use Status: Former Tobacco user Tobacco use type: Cigarette Years Smoked: 30 +/- Smoked in Last 30 Days: No e-Cigarette/Vaping Use: Never Used Second Hand Smoke Exposure: No Use of substances other than those prescribed or required for medical reasons: No Currently Displaying Signs/Symptoms of Drug Intoxication Withdrawal: No Are you DNR?: No Advance Directives: Yes Advance Directives on File: Yes Advance Directives Date on File: 11/21/23 Do you have a plan to hurt others: No Plan Recently lost weight without trying: No Eating poorly because of decreased appetite: No Nutrition Risks: No Nutritional Risk Patient : No : No Poor oral hygiene: No service: No Current occupational status: unemployed Cognitive needs: No Hearing needs: No Vision needs: No Meds Allergies Allergy/AdvReac Type Severity Reaction Status Date / Time Penicillins Allergy Intermediate RASH Verified 04/19/25 07:01 Active Medications: Current Medications Acetaminophen (Acetaminophen 325 Mg Tablet) 650 mg PO Q6H PRN PRN Reason: Pain, Mild 1-3,fever,headache Last Admin: 04/20/25 22:45 Dose: 650 mg Calcium Carbonate (Calcium Carbonate 750 Mg Tab.Chew) 750 mg PO Q4H PRN PRN Reason: Heartburn Carvedilol (Carvedilol 6.25 Mg Tablet) 6.25 mg PO BID [facility]; Protocol Last Admin: 04/20/25 20:16 Dose: 6.25 mg Gabapentin (Gabapentin 100 Mg Capsule) 100 mg PO TID [facility] Last Admin: 04/20/25 20:16 Dose: 100 mg Magnesium Hydroxide (Milk Of Magnesia 30 Ml Oral.Susp) 30 ml PO DAILY PRN PRN Reason: Constipation Melatonin (Melatonin 3 Mg Tablet) 6 mg PO BEDTIME PRN PRN Reason: Insomnia Oxycodone HCl (Oxycodone Hcl Immed Release 5 Mg Tablet) 5 mg PO Q6H PRN PRN Reason: Pain (Scale Score 4-6) Polyethylene Glycol (Polyethylene Glycol 3350 17 Gm Powd.Pack) 17 gm PO BID [facility] Last Admin: 04/20/25 20:17 Dose: 17 gm Sevelamer Carbonate (Sevelamer Carbonate Tablet 800 Mg Tablet) 800 mg PO QIDWMHS [facility] Last Admin: 04/20/25 20:15 Dose: 800 mg Sodium Chloride (0.9 % Sodium Chloride Flush 3 Ml Syringe) 3 ml IVFLUSH QSHIFT [facility] Last Admin: 04/20/25 20:17 Dose: 3 ml Home Medications ?Medication ?Instructions ?Recorded ?Confirmed ?Last Taken ?Type sevelamer HCl 800 mg tablet 800 mg PO QIDWMHS 09/14/24 04/19/25 02/15/25 History oxycodone 5 mg tablet 5 mg PO Q6H PRN Pain (Scale Score 04/19/25 04/19/25 Unknown History 4-6) Exam Height,Weight and Vital Signs: Height 5 ft 5 in Weight 79.1 kg Last Vital Signs Temp 97.0 F 04/21/25 07:50 Pulse 68 04/21/25 07:50 Resp 17 04/21/25 07:50 BP 136/74 04/21/25 07:50 Pulse Ox 97 04/21/25 07:50 O2 Del Method Room Air 04/21/25 07:50 Pertinent Lab Results Pertinent Lab Results: Laboratory Tests 04/19/25 04/19/25 04/19/25 08:02 10:30 10:32 WBC 5.7 RBC 2.60 L D Hgb 7.3 L D Hct 23.0 L D MCV 88.5 MCH 28.1 MCHC 31.7 RDW 16.1 H Plt Count 157 L D MPV 10.8 Immature Gran % (Auto) 1.7 H Neut % (Auto) 58.6 Lymph % (Auto) 27.2 [place] % (Auto) 9.4 Eos % (Auto) 2.6 Baso % (Auto) 0.5 Lymph # (Auto) 1.6 [place] # (Auto) 0.5 Eos # (Auto) 0.2 Baso # (Auto) 0.0 Abs Immat Gran (auto) 0.10 H Absolute Neuts (auto) 3.4 Absolute Nucleated RBC 0.020 H Nucleated RBC % (auto) 0.3 H Smear Tech's Comments VERIFIED PT 9.3 L INR 0.8 L Sodium 142 Potassium 5.7 H D Chloride 113 H Carbon Dioxide 13 L Anion Gap 22 H BUN 103 H Creatinine 9.99 H* Estim Creat Clear Calc 6.3 Estimated GFR 4 Random Glucose 79 Calcium 8.3 L Phosphorus Magnesium 2.3 Total Bilirubin 0.3 AST 37 H ALT 8 Alkaline Phosphatase 133 H Total Protein 7.5 Albumin 3.7 Stool Occult Blood POSITIVE Influenza Type A (PCR) NEGATIVE Influenza Type B (PCR) NEGATIVE RSV RNA Qual (PCR) NEGATIVE SARS-CoV-2 RNA (RT-PCR) NEGATIVE Blood Type A Positive Antibody Screen NEGATIVE Crossmatch ([facility]) See Detail 04/20/25 04/20/25 04/21/25 03:46 15:33 07:02 WBC 5.1 5.9 RBC 3.05 L 3.10 L Hgb 8.7 L 9.8 L 9.0 L Hct 27.5 L 30.4 L 27.9 L MCV 90.2 90.0 MCH 28.5 29.0 MCHC 31.6 32.3 RDW 15.9 16.9 H Plt Count 192 149 L MPV 10.3 10.3 Immature Gran % (Auto) Neut % (Auto) Lymph % (Auto) [place] % (Auto) Eos % (Auto) Baso % (Auto) Lymph # (Auto) [place] # (Auto) Eos # (Auto) Baso # (Auto) Abs Immat Gran (auto) Absolute Neuts (auto) Absolute Nucleated RBC 0.030 H 0.030 H Nucleated RBC % (auto) 0.6 H 0.5 H Smear Tech's Comments PT INR Sodium 143 142 Potassium 4.7 4.9 Chloride 114 H 106 Carbon Dioxide 14 L 21 L Anion Gap 20 20 BUN 96 H 75 H Creatinine 9.58 H* 8.53 H* Estim Creat Clear Calc 6.5 7.3 Estimated GFR 4 5 Random Glucose 77 100 Calcium 8.3 L 8.5 Phosphorus 8.3 H Magnesium Total Bilirubin AST ALT Alkaline Phosphatase Total Protein Albumin Stool Occult Blood Influenza Type A (PCR) Influenza Type B (PCR) RSV RNA Qual (PCR) SARS-CoV-2 RNA (RT-PCR) Blood Type Antibody Screen Crossmatch ([facility]) Narrative Narrative: EKG 04/19/25 Vent. Rate : 71 BPM Atrial Rate : 71 BPM P-R Int : 136 ms QRS Dur : 90 ms QT Int : 424 ms P-R-T Axes : 35 4 82 degrees QTcB Int : 460 ms Sinus rhythm with Premature atrial complexes Otherwise normal ECG When compared with ECG of 16-Feb-2025 10:17, Premature atrial complexes are now Present T wave inversion no longer evident in Lateral leads Echo Procedure Date: 09/09/2024 Procedure Type: Transthoracic Echocardiogram Location: [facility] Height: 162.56 cm Weight: 78.47 kg BSA: 1.84 m2 Heart Rate: bpm BP: 160 / 78 mmHg Rail Grinder: Referring MD: Hanna Post DEPUTY COMMISSIONER Symptoms: elevated troponin Study Quality: Adequate ECG Rhythm: Sinus Conclusions: - The left ventricular systolic function is mildly decreased. The calculated ejection fraction is 50% by biplane method. - The basal inferior segment is hypokinetic. - No obvious valvular pathology seen on this study. Airway Mallampati Class: II TM Dist: >3cm Neck ROM: Full Partial: Upper (7) Loose/Missing/Broken Teeth: No Heart: RRR Lungs: CTAB Assessment and Plan Final Anesthetic Review Family History of Problems with Anesthesia: No History of Problems with Anesthesia: No
[2025-04-21] MEDS: 0.9 % Sodium Chloride Flush 3 ML SYRINGE IVFLUSH ×2 (10:40→21:44)
--- NOTE | 2025-04-21 14:13 | HO.PM.IMPN ---
Subjective Subjective Date of Service: 04/21/25 Interval History: Pt seen this am, family at bedside, pt is scheduled for flex sigmoidiscopy today, after enema had another bloody BM, will recheck Hb, pt denies any sx, remains NPO for procedure Review of Systems -ve except as stated above Physical Exam Vital Signs: Vital Signs: Last Vital Signs Temp 97.3 F 04/21/25 12:00 Pulse 69 04/21/25 12:00 Resp 16 04/21/25 12:00 BP 128/78 04/21/25 12:00 Pulse Ox 94 04/21/25 12:00 O2 Del Method Room Air 04/21/25 12:00 BMI result Body Mass Index 29.0 General: AOx3, no acute distress Resp: CTA bilaterally CVS: S1, S2, RRR GI: +BS, NT, no distention Skin: Warm, dry Neuro: Cranial nerves II-XII grossly intact bilaterally. Motor grossly intact bilaterally Extremities: No edema Psych: Appropriate affect Objective Data Active Medications Acetaminophen (Acetaminophen 325 Mg Tablet) 650 mg PO Q6H PRN PRN Reason: Pain, Mild 1-3,fever,headache Last Admin: 04/20/25 22:45 Dose: 650 mg Documented By: CEHRELLE Calcium Carbonate (Calcium Carbonate 750 Mg Tab.Chew) 750 mg PO Q4H PRN PRN Reason: Heartburn Carvedilol (Carvedilol 6.25 Mg Tablet) 6.25 mg PO BID [facility]; Protocol Last Admin: 04/21/25 10:39 Dose: 6.25 mg Documented By: MOLLY Gabapentin (Gabapentin 100 Mg Capsule) 100 mg PO TID [facility] Last Admin: 04/21/25 10:39 Dose: 100 mg Documented By: MOLLY Magnesium Hydroxide (Milk Of Magnesia 30 Ml Oral.Susp) 30 ml PO DAILY PRN PRN Reason: Constipation Melatonin (Melatonin 3 Mg Tablet) 6 mg PO BEDTIME PRN PRN Reason: Insomnia Oxycodone HCl (Oxycodone Hcl Immed Release 5 Mg Tablet) 5 mg PO Q6H PRN PRN Reason: Pain (Scale Score 4-6) Polyethylene Glycol (Polyethylene Glycol 3350 17 Gm Powd.Pack) 17 gm PO BID [facility] Last Admin: 04/21/25 10:40 Dose: 17 gm Documented By: MOLLY Sevelamer Carbonate (Sevelamer Carbonate Tablet 800 Mg Tablet) 800 mg PO QIDWMHS [facility] Last Admin: 04/21/25 11:40 Dose: Not Given Documented By: MOLLY Non-Admin Reason: NPO Sodium Chloride (0.9 % Sodium Chloride Flush 3 Ml Syringe) 3 ml IVFLUSH QSHIFT [facility] Last Admin: 04/21/25 10:40 Dose: 3 ml Documented By: MOLLY Labs 04/21/25 07:02 04/21/25 07:02 Labs: Laboratory Results - last 24 hr 04/21/25 07:02 MCV 90.0 MCH 29.0 MCHC 32.3 RDW 16.9 H Plt Count 149 L MPV 10.3 Absolute Nucleated RBC 0.030 H Nucleated RBC % (auto) 0.5 H Anion Gap 20 Estim Creat Clear Calc 7.3 Estimated GFR 5 Random Glucose 100 Calcium 8.5 Phosphorus 8.3 H Assessment and Plan (1) Bleeding hemorrhoids: Status: Acute (2) Rectal bleed: Status: Acute (3) GI bleed: Status: Acute Plan Pt is a 59-year-old female with a PMH significant for?EDRD on HD M/W/F, HTN, HFrEF (LVEF 40-45% on 11/2023), chronic iron deficiency anemia, and hx of noncompliance with medications or follow up appointments who presents to the ED with maroon-colored stool since Sunday. Pt is admitted to the hospital for treatment and further evaluation of electrolyte abnormalities in the setting of missed dialysis as well as acute on chronic anemia and bright red blood per rectum concern for lower GI bleed. Acute on chronic blood loss anemia H&H 7.3/23.0 Reports maroon colored stool and bright red blood in the toilet on Sunday, 2 more episodes inpt Had similar episode in September where she underwent colonoscopy and found to have bleeding internal hemorrhoids that were treated conservatively Transfused 1 unit PRBCs in the ED GI consulted, NPO for flex sig today monitor H&H closely ESRD on HD M/W/F with Hyperkalemia Creatinine 0.99, Potassium 5.7 at time of presentation, given Lokelma in the ED In the setting of missed dialysis on Sunday due to hematochezia Nephrology consulted for HD inpatient; follows with [facility] [place] [facility] cleared by renal for dc, Continue phosphate binder Monitor on telemetry HTN Continue carvedilol Chronic pain Continue home opioids Full Code DVT Prophylaxis: Pneumatic compression Pt will require a hospitalization of at least two nights for treatment of?hyperkalemia in the setting of missed dialysis at bright red blood per rectum concerning for lower GI bleed. Quality Stroke Does the patient have a stroke diagnosis?: No VTE Prior VTE?: No VTE Risk Level:: Medical - moderate - high VTE Device Contraindication: N/A - Device Ordered VTE Drug Contraindication: Treatment Not Indicated
[2025-04-21 14:34] LABS: Hematocrit 29.7 % (37.0-47.0); Hemoglobin 9.4 g/dl (12.0-16.0)
--- NOTE | 2025-04-21 15:55 | P.CONAN_ITS ---
[facility] Active Problems Active Problems: All Active Problems (Updated 04/19/25 @ 12:47 by Lindsey Miramontes MD) Acute hyperkalemia (Acute) ESRD (end stage renal disease) (Acute) Rectal bleed (Acute) Nausea and vomiting (Acute) Hyperkalemia (Acute) ESRD (end stage renal disease) on dialysis (Acute) Cardiomyopathy (Acute) Acute hypernatremia (Acute) Itchy skin (Acute) Leg weakness, bilateral (Acute) Anemia due to chronic kidney disease (Acute) NSTEMI (non-ST elevated myocardial infarction) (Acute) Atrial fibrillation with rapid ventricular response (Acute) GI bleed (Acute) Anemia (Acute) Vitamin D deficiency (Acute) Metabolic acidosis (Acute) Physical exam (Acute) Hernia (Acute) Hospital discharge follow-up (Acute) Iron deficiency (Acute) Bleeding hemorrhoids (Acute) Screening for cervical cancer (Acute) Physical exam (Acute) Weight loss (Acute) Dysphagia (Acute) Rash (Acute) Obesity (BMI 30-39.9) (Acute) Adult general medical exam (Acute) Colonoscopy refused (Acute) Asthma (Acute) Abdominal hernia (Acute) Screening for breast cancer (Acute) Edema (Acute) Essential hypertension (Acute) Secondary hyperparathyroidism (of renal origin) (Acute) Normocytic anemia (Acute) Past Medical History Medical History ESRD (end stage renal disease) on dialysis Cardiomyopathy Noncompliance of patient with renal dialysis ESRD (end stage renal disease) on dialysis Back pain Asthma History of blood transfusion NSTEMI (non-ST elevated myocardial infarction) Atrial fibrillation Acute on chronic kidney failure Secondary hyperparathyroidism (of renal origin) Anemia in chronic kidney disease (CKD) Chronic systolic (congestive) heart failure CKD (chronic kidney disease) stage 5, GFR less than 15 ml/min Essential hypertension Normocytic anemia Functional capacity: independent ambulation Family History Family History Father Throat cancer Mother Hypertension Daughter In good health Daughter In good health Sister In good health Family/Other Breast cancer Family history of problems with anesthesia: No Surgical History Surgical History History of esophagogastroduodenoscopy (EGD) Hx of colonoscopy History of surgery Status post dilation and curettage History of abdominal surgery History of extraction of renal calculus History of tubal ligation History of Problems with Anesthesia: No Social History Social History Household Members: None Housing: Apartment Housing Other:: studio Are you a primary caregivers non medical to a significant other at home: No Do you presently have visiting nurse or other home services: No Unable to assess alcohol history related to: Unknown Alcohol intake: never Comment: Pt declining bed alarm Patient Tobacco Use Status: Former Tobacco user Tobacco use type: Cigarette Years Smoked: 30 +/- Smoked in Last 30 Days: No e-Cigarette/Vaping Use: Never Used Second Hand Smoke Exposure: No Use of substances other than those prescribed or required for medical reasons: No Currently Displaying Signs/Symptoms of Drug Intoxication Withdrawal: No Are you DNR?: No Advance Directives: Yes Advance Directives on File: Yes Advance Directives Date on File: 11/21/23 Do you have a plan to hurt others: No Plan Recently lost weight without trying: No Eating poorly because of decreased appetite: No Nutrition Risks: No Nutritional Risk Patient : No : No Poor oral hygiene: No service: No Current occupational status: unemployed Cognitive needs: No Hearing needs: No Vision needs: No Meds Allergies Allergy/AdvReac Type Severity Reaction Status Date / Time Penicillins Allergy Intermediate RASH Verified 04/19/25 07:01 Active Medications: Current Medications Acetaminophen (Acetaminophen 325 Mg Tablet) 650 mg PO Q6H PRN PRN Reason: Pain, Mild 1-3,fever,headache Last Admin: 04/20/25 22:45 Dose: 650 mg Calcium Carbonate (Calcium Carbonate 750 Mg Tab.Chew) 750 mg PO Q4H PRN PRN Reason: Heartburn Carvedilol (Carvedilol 6.25 Mg Tablet) 6.25 mg PO BID [facility]; Protocol Last Admin: 04/21/25 10:39 Dose: 6.25 mg Gabapentin (Gabapentin 100 Mg Capsule) 100 mg PO TID [facility] Last Admin: 04/21/25 15:31 Dose: Not Given Magnesium Hydroxide (Milk Of Magnesia 30 Ml Oral.Susp) 30 ml PO DAILY PRN PRN Reason: Constipation Melatonin (Melatonin 3 Mg Tablet) 6 mg PO BEDTIME PRN PRN Reason: Insomnia Oxycodone HCl (Oxycodone Hcl Immed Release 5 Mg Tablet) 5 mg PO Q6H PRN PRN Reason: Pain (Scale Score 4-6) Polyethylene Glycol (Polyethylene Glycol 3350 17 Gm Powd.Pack) 17 gm PO BID [facility] Last Admin: 04/21/25 10:40 Dose: 17 gm Sevelamer Carbonate (Sevelamer Carbonate Tablet 800 Mg Tablet) 800 mg PO QIDWMHS [facility] Last Admin: 04/21/25 11:40 Dose: Not Given Sodium Chloride (0.9 % Sodium Chloride Flush 3 Ml Syringe) 3 ml IVFLUSH QSHIFT [facility] Last Admin: 04/21/25 15:31 Dose: Not Given Home Medications ?Medication ?Instructions ?Recorded ?Confirmed ?Last Taken ?Type sevelamer HCl 800 mg tablet 800 mg PO QIDWMHS 09/14/24 04/19/25 02/15/25 History oxycodone 5 mg tablet 5 mg PO Q6H PRN Pain (Scale Score 04/19/25 04/19/25 Unknown History 4-6) Exam Height,Weight and Vital Signs: Height 5 ft 5 in Weight 79.1 kg Last Vital Signs Temp 98 F 04/21/25 15:10 Pulse 75 04/21/25 15:10 Resp 16 04/21/25 15:10 BP 144/75 H 04/21/25 15:10 Pulse Ox 98 04/21/25 15:10 O2 Del Method Room Air 04/21/25 15:10 Pertinent Lab Results Pertinent Lab Results: Laboratory Tests 04/19/25 04/19/25 04/19/25 08:02 10:30 10:32 WBC 5.7 RBC 2.60 L D Hgb 7.3 L D Hct 23.0 L D MCV 88.5 MCH 28.1 MCHC 31.7 RDW 16.1 H Plt Count 157 L D MPV 10.8 Immature Gran % (Auto) 1.7 H Neut % (Auto) 58.6 Lymph % (Auto) 27.2 [place] % (Auto) 9.4 Eos % (Auto) 2.6 Baso % (Auto) 0.5 Lymph # (Auto) 1.6 [place] # (Auto) 0.5 Eos # (Auto) 0.2 Baso # (Auto) 0.0 Abs Immat Gran (auto) 0.10 H Absolute Neuts (auto) 3.4 Absolute Nucleated RBC 0.020 H Nucleated RBC % (auto) 0.3 H Smear Tech's Comments VERIFIED PT 9.3 L INR 0.8 L Sodium 142 Potassium 5.7 H D Chloride 113 H Carbon Dioxide 13 L Anion Gap 22 H BUN 103 H Creatinine 9.99 H* Estim Creat Clear Calc 6.3 Estimated GFR 4 Random Glucose 79 Calcium 8.3 L Phosphorus Magnesium 2.3 Total Bilirubin 0.3 AST 37 H ALT 8 Alkaline Phosphatase 133 H Total Protein 7.5 Albumin 3.7 Stool Occult Blood POSITIVE Influenza Type A (PCR) NEGATIVE Influenza Type B (PCR) NEGATIVE RSV RNA Qual (PCR) NEGATIVE SARS-CoV-2 RNA (RT-PCR) NEGATIVE Blood Type A Positive Antibody Screen NEGATIVE Crossmatch ([facility]) See Detail 04/20/25 04/20/25 04/21/25 03:46 15:33 07:02 WBC 5.1 5.9 RBC 3.05 L 3.10 L Hgb 8.7 L 9.8 L 9.0 L Hct 27.5 L 30.4 L 27.9 L MCV 90.2 90.0 MCH 28.5 29.0 MCHC 31.6 32.3 RDW 15.9 16.9 H Plt Count 192 149 L MPV 10.3 10.3 Immature Gran % (Auto) Neut % (Auto) Lymph % (Auto) [place] % (Auto) Eos % (Auto) Baso % (Auto) Lymph # (Auto) [place] # (Auto) Eos # (Auto) Baso # (Auto) Abs Immat Gran (auto) Absolute Neuts (auto) Absolute Nucleated RBC 0.030 H 0.030 H Nucleated RBC % (auto) 0.6 H 0.5 H Smear Tech's Comments PT INR Sodium 143 142 Potassium 4.7 4.9 Chloride 114 H 106 Carbon Dioxide 14 L 21 L Anion Gap 20 20 BUN 96 H 75 H Creatinine 9.58 H* 8.53 H* Estim Creat Clear Calc 6.5 7.3 Estimated GFR 4 5 Random Glucose 77 100 Calcium 8.3 L 8.5 Phosphorus 8.3 H Magnesium Total Bilirubin AST ALT Alkaline Phosphatase Total Protein Albumin Stool Occult Blood Influenza Type A (PCR) Influenza Type B (PCR) RSV RNA Qual (PCR) SARS-CoV-2 RNA (RT-PCR) Blood Type Antibody Screen Crossmatch ([facility]) 04/21/25 14:21 WBC RBC Hgb 9.4 L Hct 29.7 L MCV MCH MCHC RDW Plt Count MPV Immature Gran % (Auto) Neut % (Auto) Lymph % (Auto) [place] % (Auto) Eos % (Auto) Baso % (Auto) Lymph # (Auto) [place] # (Auto) Eos # (Auto) Baso # (Auto) Abs Immat Gran (auto) Absolute Neuts (auto) Absolute Nucleated RBC Nucleated RBC % (auto) Smear Tech's Comments PT INR Sodium Potassium Chloride Carbon Dioxide Anion Gap BUN Creatinine Estim Creat Clear Calc Estimated GFR Random Glucose Calcium Phosphorus Magnesium Total Bilirubin AST ALT Alkaline Phosphatase Total Protein Albumin Stool Occult Blood Influenza Type A (PCR) Influenza Type B (PCR) RSV RNA Qual (PCR) SARS-CoV-2 RNA (RT-PCR) Blood Type Antibody Screen Crossmatch ([facility]) Airway Mallampati Class: II TM Dist: >3cm Neck ROM: Full Heart: RRR Lungs: CTA Assessment and Plan Assessment Anesthesia Assessment: Anesthesia Plan Discussed Final Anesthetic Review Family History of Problems with Anesthesia: No History of Problems with Anesthesia: No NPO: Yes ASA Class: III and Emergency Final Preanesthetic Review: Meds/Allgs Chart Reviewed, Consent Obtained/Reviewed and Anes Risks/Benef Reviewed Patient Risk: Intermediate Procedure Risk: Low Anesthetic Plan Anesthetic Plan: MAC: Disposition: Standard PACU
--- NOTE | 2025-04-21 16:59 | W.PM.OPN ---
Operative Note Operative Note Date of Service: 04/21/25 Narrative: FLEXIBLE SIGMOIDOSCOPY TILL 35 CMS Pre-op diagnosis: Rectal bleeding. Post-op diagnosis: Diverticulosis, hemorrhoids Endoscopist:? Vishal Carmona MD Anesthesia:?MAC Consent: Indications for the procedure and potential complications of bleeding, perforation, reaction to medications and missed diagnosis were discussed with the patient and informed consent was obtained. Instrument: Olympus PCF H 190 L variable stiffness pediatric colonoscope Monitoring: Vital signs and clinical assessment, intermittent blood pressure monitoring, continuous EKG monitoring, Pulse oximetry and Carbon Dioxide monitoring were done throughout the procedure. Please see anesthesia flowsheet. Procedure: The patient was placed in the left lateral decubitis position and pre-procedure medications were administered. After a digital rectal examination of the ano-rectum, the video colonoscope was inserted into the rectum and advanced through the colon to 35 cms into the distal sigmoid colon. The colonoscope was slowly withdrawn in a retrograde panoramic fashion and the colon mucosa was carefully examined including a retroflexed view of the rectum. Findings and interventions are described below. Procedure Difficulty: without difficulty Findings: Sigmoid Colon: Moderate diverticulosis - no blood seen in the sigmoid colon Rectum: Some fresh blood and clots in the rectum - suctioned Ano-rectum: Moderate internal hemorrhoids with a small ulcer on one hemorrhoid and stigmata of recent bleeding No active bleeding seen Colon preparation: Good after some irrigation. Impression and Post Procedure Diagnosis: Colonoscopy Findings: Moderate diverticulosis seen in the sigmoid colon Moderate internal hemorrhoids with a small ulcer on one hemorrhoid and stigmata of recent bleeding Rectal bleeding is likely from hemorrhoids - no other potential source was visualized Plan: Start Hydrocortisone cream twice daily for hemorrhoids - order placed. Surgical consult as outpatient for band ligation of hemorrhoids Above findings were reviewed with the patient and relevant handouts were given and the discharge area.
[2025-04-21] MEDS: Sevelamer Carbonate Tablet 800 MG TABLET PO (21:44)
[2025-04-21] MEDS: Hydrocortisone 2.5 % Rectal Cr 30 GM TUBE 1 APPL PR (21:44)
[2025-04-22] VITALS: BP 135/76; PULSE 76; RESP 16; TEMP 36.2; O2SAT 99
[2025-04-22 04:00] VITALS: BP 136/62; PULSE 63; RESP 16; TEMP 36.1; O2SAT 100
[2025-04-22 08:00] VITALS: BP 122/75; PULSE 67; RESP 18; TEMP 36.4; O2SAT 100
[2025-04-22 08:01] LABS: Hematocrit 27.0 % (37.0-47.0); Hemoglobin 8.8 g/dl (12.0-16.0); Mean Corpuscular HGB Conc 32.6 g/dl (31.0-35.0); Mean Corpuscular Hemoglobin 29.4 pg (27.0-33.0); Mean Corpuscular Volume 90.3 fL (80.0-98.0); NRBC Abs Auto 0.030 X10*3/uL (0.0-0.012); NRBC Pct Auto 0.6 /100WBC (0.0-0.2); Platelet Count 144 X10*3/uL (160-400); Red Blood Count 2.99 X10*6/uL (4.20-5.50); White Blood Count 5.1 X10*3/uL (4.8-10.8)
[2025-04-22 08:17] LABS: Anion Gap 20 (12-20); Blood Urea Nitrogen 87 mg/dL (9-16); Calcium 8.1 mg/dL (8.4-10.2); Carbon Dioxide 20 mmol/L (22-29); Chloride 105 mmol/L (96-108); Creatinine Clr Calc Pharmacy 6.9; Estimated Glomerular Filt Rate 4; Potassium 4.6 mmol/L (3.3-5.1); Sodium 140 mmol/L (135-145)
--- NOTE | 2025-04-22 08:32 | HO.POSTANES ---
Post Anesthesia Evaluation Post Anesthesia Evaluation Date of Service: 04/22/25 Vital Signs: Vital Signs Temp Pulse Resp BP Pulse Ox O2 Del Method 04/22/25 08:00 97.5 F 67 18 122/75 100 Room Air 04/22/25 04:00 97 F 63 16 136/62 100 Room Air 04/22/25 00:00 97.1 F 76 16 135/76 99 Room Air 04/21/25 21:43 87 Anesthesia: Monitored Mental Status: Awake Pain Control: Satisfactory Nausea/Vomiting: None Hydration: Adequate Anesthesia-Related Issues: No Anes. Related Issues
[2025-04-22 12:00] VITALS: BP 128/66; PULSE 80; RESP 18; TEMP 36.2; O2SAT 98
[2025-04-22] MEDS: Sevelamer Carbonate Tablet 800 MG TABLET PO (13:01)
[2025-04-22] MEDS: Hydrocortisone 2.5 % Rectal Cr 30 GM TUBE 1 APPL PR (13:01)
--- NOTE | 2025-04-22 13:11 | W.PM.DNNEP ---
Subjective Subjective Date of Service: 04/22/25 This patient was seen during dialysis. Interval history: Here for [facility], following for inpatient dialysis while hospitalized. patient states she feels fine. Denies concerns/complaints. Physical Exam Vital Signs: Vital Signs: Last Vital Signs Temp 97.1 F 04/22/25 12:00 Pulse 80 04/22/25 12:00 Resp 18 04/22/25 12:00 BP 128/66 04/22/25 12:00 Pulse Ox 98 04/22/25 12:00 O2 Del Method Room Air 04/22/25 12:00 BMI result Body Mass Index 29.0 Const: General: no acute distress, alert and awake Resp: Effort & Inspection: normal respiratory effort and able to speak in complete sentences Auscultation: clear to auscultation bilaterally Cardio: Rate: regular rate Rhythm: regular rhythm Heart sounds: S1 normal heart sound present and S2 normal heart sound present GI: Palpation (GI): Soft to palpation and nontender Skin: Rashes: no rashes Extrem: General: No edema Assessment & Plan Assessment and plan (1) ESRD (end stage renal disease) on dialysis: Status: Acute Plan ESRD on HD MWF- Dialysis today. has left permcath in place without swelling/erythema patient does not appear to be significantly fluid overloaded H&H 8.8 &27, will give 10,000 units of procrit today. recommend low potassium, low phosphorus, low sodium diet fluid restriction 1.5L/24 hours recommend regular blood pressure checks, I&O monitoring continue supportive care will continue to follow Discussed with Dr Miranda. Time Spent With Patient Time: Total time managing care of this patient today ____ minutes. Procedures Date of Service Date of Service: 04/22/25
--- NOTE | 2025-04-22 15:44 | MHC.CM.PN ---
Patient has not yet been medically cleared for dc(GI Consult pending); home/resume services is the goal and CM will continue to follow.
--- NOTE | 2025-04-22 15:51 | P.DS_ITS ---
DS: Providers Provider Date of Service: 04/22/25 Date of admission: 04/19/25 14:18 Date of discharge: 04/22/25 Primary care physician: Britt De MD Consults: 04/19/25 16:37 Consult to Gastroenterology Routine Consulting Provider: Vishal Carmona Reason for consultation: ?GIB Consult to Nephrology Routine Consulting Provider: [facility] Reason for consultation: ESRD on HD MWF; missed dialysis on Sunday DS: Diagnosis Discharge Diagnosis (1) ESRD (end stage renal disease) on dialysis: Status: Acute DS: Summary Hospital Course Hospital Course: From admission HPI: Date of Service: 04/19/25 Attending physician on admission: Grayson Correia Chief Complaint: Rectal bleeding Pt is a 59-year-old female with a PMH significant for?EDRD on HD M/W/F, HTN, H FrEF (LVEF 40-45% on 11/2023), chronic iron deficiency anemia, and hx of noncompliance with medications or follow up appointments who presents to the ED with maroon-colored stool since Sunday. Pt reports on Sunday noticed that she had bright red blood in the toilet as well as maroon-colored stool. States she called dialysis and they told her to stay at home. Bleeding stopped on Sunday but returned again Sunday morning and pt decided to come to the ED for further evaluation. Denies abdominal or rectal pain. No nausea, vomiting, diarrhea. Some lightheadedness and dizziness she experienced while in the ED waiting room. No significant weakness or difficulty walking. Had a similar episode of rectal bleeding in September of this year when she was hospitalized. Underwent colonoscopy which found bleeding internal hemorrhoids that were treated conservatively. No SOB or difficulty breathing. No chest pain/pressure, palpitations. In the ED pt was hypertensive up to 181/84, vitals otherwise stable and WNL. Labs were significant for H&H 7.3/23.0, potassium 5.7, anion gap 22, BUN 103, creatinine 9.99 AST 37, alk-phos 133. Stool positive for occult blood. CT of abdomen/pelvis wo contrast negative for acute abdomen; no evidence of bleeding. EKG demonstrated sinus rhythm with PACs but no evidence of significant ST elevations or depressions, or peaked T-waves.. Pt was treated in the ED with Tatyanakelma. Pt is admitted to the hospital for treatment and further evaluation of electrolyte abnormalities in the setting of missed dialysis as well as acute on chronic anemia and bright red blood per rectum concern for lower GI bleed. Hospital course Pt was admitted to the hospital for bright red blood per rectum concerning for GI bleed as well as electrolyte abnormalities in the setting of missed dialysis. Pt was transfused 1 unit of PRBCs in the ED. while in the hospital pt had another bloody bowel movement and complained of lightheadedness and dizziness. Was seen and evaluated by GI and underwent EGD and colonoscopy on 04/20 with the following results and recommendations: 09/10/24 EGD AND COLONOSCOPY WERE PERFORMED BY DR. MADRIGAL: Impression: 1. Normal esophagus 2. Normal stomach 3. Normal duodenum 4. Normal colon and terminal ileum mucosa 5. 2 adenomatous polyps removed 6. Large bleeding internal hemorrhoids Recommendations:?? * Follow-up path results * Bleeding source appears to be internal hemorrhoids * Anusol suppositories * Sitz baths * Consider surgical consultation if pt continues to have significant LGIB. * Repeat colonoscopy for polyp surveillance in 3 years if its an adenoma. Did not have any repeat bleeding per rectum last night and patient's H&H remained stable. Pt has no acute medical complaints at this time, including nausea, vomiting, abdominal pain. No rectal pain or recent bleeding. Pt will be discharged from the hospital with recommendation to follow up with General surgery in 1-2 weeks for possible outpatient [place] band ligation. Should continue Anusol suppositories and Sitz baths for relief. More details concerning hospital stay as below in problem list. Pt should resume all of her other home meds. Pt is a 59-year-old female with a PMH significant for?EDRD on HD M/W/F, HTN, HFrEF (LVEF 40-45% on 11/2023), chronic iron deficiency anemia, and hx of noncompliance with medications or follow up appointments who presents to the ED with maroon-colored stool since Sunday. Pt is admitted to the hospital for treatment and further evaluation of electrolyte abnormalities in the setting of missed dialysis as well as acute on chronic anemia and bright red blood per rectum concern for lower GI bleed. Acute on chronic blood loss anemia H&H 7.3/23.0 at time of presentation; has been stable and baseline since Reports maroon colored stool and bright red blood in the toilet on starting 04/17, 2 more episodes inpt Had similar episode in September where she underwent colonoscopy and found to have bleeding internal hemorrhoids that were treated conservatively Transfused 1 unit PRBCs in the ED GI consulted, underwent unremarkable EGD and colonoscopy significant for internal bleeding hemorrhoids Follow up outpatient with General surgery for band ligation ESRD on HD M/W/F with Hyperkalemia Creatinine 0.99, Potassium 5.7 at time of presentation, given Lokelma in the ED In the setting of missed dialysis on Sunday due to hematochezia Nephrology consulted for HD inpatient; follows with [facility] Cleared by renal for dc, Continue phosphate binder HTN Continue carvedilol Chronic pain Continue home opioids Time Attestation Discharge Coordination Time (in mins): 40 Quality: Safe Use of Opioids Does Pt have an Active Cancer Diagnosis on the Problem List?: No Quality: Stroke Does the patient have a stroke diagnosis?: No Physical Exam Exam: Exam: General: AOx3, no acute distress Resp: CTA bilaterally CVS: S1, S2, RRR GI: +BS, NT, no distention Skin: Warm, dry Neuro: Cranial nerves II-XII grossly intact bilaterally. Motor grossly intact bilaterally Extremities: No edema Psych: Appropriate affect Vital Signs: Vital Signs: Last Vital Signs Temp 97.1 F 04/22/25 12:00 Pulse 80 04/22/25 12:00 Resp 18 04/22/25 12:00 BP 128/66 04/22/25 12:00 Pulse Ox 98 04/22/25 12:00 O2 Del Method Room Air 04/22/25 12:00 BMI result Body Mass Index 29.0 DS: Data Data Completed and Pending Completed studies during hospitalization [Text1]: Procedures Excision of Duodenum, Via Natural or Artificial Opening Endoscopic, Diagnostic (11/09/23) Excision of Esophagogastric Junction, Via Natural or Artificial Opening Endoscopic, Diagnostic (11/09/23) Excision of Sigmoid Colon, Via Natural or Artificial Opening Endoscopic, Diagnostic (09/06/24) Excision of Transverse Colon, Via Natural or Artificial Opening Endoscopic, Diagnostic (09/06/24) Fluoroscopy of Superior Vena Cava, Guidance (11/15/24) Insertion of Infusion Device into Superior Vena Cava, Percutaneous Approach (11/15/24) Insertion of Infusion Device into Upper Vein, Percutaneous Approach (09/14/24) Insertion of Tunneled Vascular Access Device into Chest Subcutaneous Tissue and Fascia, Percutaneous Approach (11/15/24) Inspection of Lower Intestinal Tract, Via Natural or Artificial Opening Endoscopic (11/09/23) Inspection of Upper Intestinal Tract, Via Natural or Artificial Opening Endoscopic (09/06/24) Performance of Urinary Filtration, Intermittent, Less than 6 Hours Per Day (02/16/25) Transfusion of Nonautologous Red Blood Cells into Peripheral Vein, Percutaneous Approach (11/15/24) Labs on day of discharge: Laboratory Results - last 24 hr 04/22/25 07:06 WBC 5.1 RBC 2.99 L Hgb 8.8 L Hct 27.0 L MCV 90.3 MCH 29.4 MCHC 32.6 RDW 17.2 H Plt Count 144 L MPV 10.1 Absolute Nucleated RBC 0.030 H Nucleated RBC % (auto) 0.6 H Sodium 140 Potassium 4.6 Chloride 105 Carbon Dioxide 20 L Anion Gap 20 BUN 87 H Creatinine 9.07 H* Estim Creat Clear Calc 6.9 Estimated GFR 4 Random Glucose 110 Calcium 8.1 L Discharge Plan Discharge Anticipated Discharge Date/Time: 04/22/25 15:31 Patient Disposition: Home, Self-Care Discharge Diagnosis: Acute on chronic blood loss anemia secondary to internal hemorrhoids Referrals: [facility] [Provider Group, General Surgery] - 1 Week Referral Note: Rubber band ligation for internal hemorrhoids with recurrent bleeding Britt Chavez MD [Primary Care Provider, Internal Medicine] - 1 Week Discharge Medications: New hydrocortisone [Proctozone-HC] 2.5 % Cream With Perineal Applicator 1 appl VT BID Qty: 30 0RF Rx Instructions: Apple cream via suppository twice a day for hemorrhoids Continued (DME) blood pressure monitor Kit See Rx Instructions .Route Qty: 1 0RF Rx Instructions: As directed (DME) recliner See Rx Instructions .Route .MEDSUPPLY Qty: 1 0RF Rx Instructions: As directed carvedilol 6.25 mg tablet 6.25 mg PO BID Qty: 180 11RF atorvastatin 80 mg tablet 80 mg PO BEDTIME 90 Days Qty: 90 0RF (DME) sitz bath Kit See Rx Instructions .Route Qty: 1 0RF Rx Instructions: As directed (DME) sitz bath Kit See Rx Instructions .Route Qty: 1 0RF Rx Instructions: As directed sevelamer HCl 800 mg tablet 800 mg PO QIDWMHS Rx Instructions: must administer with a meal/food gabapentin 100 mg Capsule 100 mg PO TID Qty: 90 0RF oxycodone 5 mg Tablet 5 mg PO Q6H PRN (Reason: Pain (Scale Score 4-6)) (DME) bed rail See Rx Instructions .Route .MEDSUPPLY Qty: 1 0RF Rx Instructions: As directed (DME) hand held shower See Rx Instructions .Route .MEDSUPPLY Qty: 1 0RF Rx Instructions: As directed (DME) Grab bar Misc See Rx Instructions .Route Qty: 1 0RF Rx Instructions: As directed (DME) pill box twice daily See Rx Instructions .Route .MEDSUPPLY Qty: 1 0RF Rx Instructions: As directed (DME) Shower Chair Misc See Rx Instructions .Route Qty: 1 0RF Rx Instructions: with back Discharge Orders: Discharge Order (Routine); Ordered 04/22/25 Ordered By: Kana Alas Activity on Discharge: As tolerated Stand Alone Forms: Patient Portal Discharge page Print Language: [place] Care Plan Goals: See below Health Concerns: Acute on chronic anemia Internal hemorrhoids Electrolyte abnormalities from missed dialysis Plan of Treatment: You were admitted to the hospital for bright red blood per rectum concerning for GI bleed. You were seen and evaluated by GI and underwent both an EGD and colonoscopy with significant primarily for bleeding internal hemorrhoids. You also underwent dialysis sessions while in the hospital to correct electrolyte abnormalities. You have had no more bleeding episodes for the past 2 nights and will be discharged home with recommendation to follow up with General surgery for outpatient rubber-band ligation. --you have also been prescribed hydrocortisone suppository to be used twice a day for internal hemorrhoids -- Sitz baths daily for internal hemorrhoids -- Follow up with Dr. Carmona in GI for pathology results -- Repeat colonoscopy for polyp surveillance in 3 years if polyps are adenomas -- For electrolyte abnormalities, please make sure you attend each scheduled dialysis session. Adhere to a renal diet that is low in salt, potassium, and phosphorus. Follow up with Dr. Betancur and Nephrology as previously scheduled -- Resume all other home medications Assessment: See discharge summary Patient Instructions: Blood Transfusion Discharge Instructions
--- NOTE | 2025-04-22 15:53 | MHC.CM.PN ---
Patient has been medically cleared for dc to home today, self care. [employer] HD services should resume as before.Last IMM was addressed on 04/20/2025.
[2025-04-22 16:00] VITALS: BP 132/71; PULSE 97; RESP 18; TEMP 36.2; O2SAT 98
== END 2025-04-22 16:25 | disposition home or self-care (01) | DRG 393 ==
LOC: HO.ED 12:47 → HO.EDOVER 14:24 → HO.IMC 04-20 10:49
PROVIDERS: Hospitalist; Internal Medicine Gastroenterology; Admitting Provider Student in an Organized Health Care Education/Training Program; Emergency Provider Emergency Medicine; PCP Internal Medicine; Visit Provider Student in an Organized Health Care Education/Training Program
PROC: 0DJD8ZZ Inspection of Lower Intestinal Tract, Via Natural or Artificial Opening Endoscopic (ICD-10-PCS; CPT 45330; principal; 2025-04-21 14:10)
DX: K64.8 Other hemorrhoids (principal); N18.6 End stage renal disease; I13.2 Hypertensive heart and chronic kidney disease with heart failure and with stage 5 chronic kidney disease, or end stage renal disease; D62 Acute posthemorrhagic anemia; I50.22 Chronic systolic (congestive) heart failure; I25.10 Atherosclerotic heart disease of native coronary artery without angina pectoris; D63.1 Anemia in chronic kidney disease; G89.29 Other chronic pain; K57.30 Diverticulosis of large intestine without perforation or abscess without bleeding; E87.5 Hyperkalemia; Z20.822 Contact with and (suspected) exposure to COVID-19; Z99.2 Dependence on renal dialysis; Z91.158 Patient's noncompliance with renal dialysis for other reason; Z87.891 Personal history of nicotine dependence; Z79.891 Long term (current) use of opiate analgesic; Z79.899 Other long term (current) drug therapy
CPT/HCPCS: 36415; 74176; 80048; 80053; 82272; 83735; 84100; 85014; 85018; 85025; 85027; 85610; 86850; 86900; 86901; 86902; 86920; 86922; 87637; 90999; 93005; 99285; J2470; J2704; P9016; Q5106

== ENCOUNTER → 2025-04-19 07:53 | Outpatient (BNV) | payer OTHER, SELFPAY | PROVIDERS: Emergency Provider Emergency Medicine; PCP Internal Medicine; Visit Provider Internal Medicine Cardiovascular Disease | DX: I49.1 Atrial premature depolarization (principal) | CPT/HCPCS: 93010 ==

== ENCOUNTER → 2025-04-19 10:23 | Outpatient (BNV) | payer OTHER, SELFPAY | PROVIDERS: Emergency Provider Emergency Medicine; PCP Internal Medicine; Visit Provider Radiology Diagnostic Radiology | DX: I72.2 Aneurysm of renal artery (principal) | CPT/HCPCS: 74176 ==

== ENCOUNTER → 2025-04-19 14:18 | Outpatient (BNV) | payer OTHER, SELFPAY | PROVIDERS: Admitting Provider Student in an Organized Health Care Education/Training Program; Emergency Provider Emergency Medicine; PCP Internal Medicine; Visit Provider Internal Medicine Gastroenterology | DX: K92.2 Gastrointestinal hemorrhage, unspecified (principal); K64.9 Unspecified hemorrhoids | CPT/HCPCS: 99232 ==

== ENCOUNTER → 2025-04-19 14:18 | Outpatient (BNV) | payer OTHER, SELFPAY | PROVIDERS: Admitting Provider Student in an Organized Health Care Education/Training Program; Emergency Provider Emergency Medicine; PCP Internal Medicine; Visit Provider Student in an Organized Health Care Education/Training Program | DX: N18.6 End stage renal disease (principal); Z99.2 Dependence on renal dialysis; E87.5 Hyperkalemia | CPT/HCPCS: 99223 ==

== ENCOUNTER → 2025-04-19 14:18 | Outpatient (BNV) | payer OTHER, SELFPAY | PROVIDERS: Admitting Provider Student in an Organized Health Care Education/Training Program; Emergency Provider Emergency Medicine; PCP Internal Medicine; Visit Provider Nurse Practitioner Family | DX: N18.6 End stage renal disease (principal); Z99.2 Dependence on renal dialysis | CPT/HCPCS: 99222 ==

== ENCOUNTER → 2025-05-04 23:59 | Outpatient (BNV) | payer OTHER, SELFPAY | PROVIDERS: PCP Internal Medicine; Visit Provider Internal Medicine Nephrology | DX: N18.6 End stage renal disease (principal) | CPT/HCPCS: 90961 ==

== ENCOUNTER 2025-05-15 09:39 | Inpatient (IN) | payer OTHER, SELFPAY ==
[2025-05-15] VITALS (16 sets, daily range): BP systolic 137–194; BP diastolic 70–96; PULSE 74–109; RESP 14–20; TEMP 36.4–37.1; O2SAT 96–100; BMI 29.7; BMI 30.2
--- NOTE | ~2025-05-15 | CT_ITS ---
EXAMINATION: CT ABDOMEN AND PELVIS WITHOUT AND WITH CONTRAST CLINICAL INFORMATION: Rectal bleeding status post hemorrhoid embolization COMPARISON: 04/19/2025 TECHNIQUE: Multidetector volumetric imaging was performed of the abdomen and pelvis before and after the IV administration of 80 mL of Omnipaque 300 intravenous contrast. Sagittal and coronal reformatted images were obtained on the technologist's workstation. This CT examination was performed using dose optimization techniques as appropriate, variously including the following: *Automated exposure control *Adjustment of mA and/or kV according to patient size (this includes techniques or standardized protocols for targeted exams where dose is matched to indication/reason for exam; i.e. extremities or head) *Use of iterative reconstruction technique DLP: 1542 mGy*cm FINDINGS: LUNG BASES: The visualized lung bases are unremarkable. LIVER, GALLBLADDER, AND BILIARY TREE: The liver is normal in size, shape, and attenuation. No focal hepatic lesion or biliary ductal dilatation is present. The gallbladder demonstrates increased attenuation that is slightly lower density in the fundus consistent with vicarious excretion of contrast. 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 ADRENAL GLANDS: Unremarkable KIDNEYS AND URETERS: Left nephrectomy has been performed. Again seen are 5 saccular aneurysms involving the renal artery and intrarenal vessels. Largest is 1.7 cm and unchanged. There is also a saccular aneurysm at the origin of the right renal artery leading to the superior kidney. BLADDER: There is excreted contrast in the bladder. GASTROINTESTINAL TRACT: Numerous surgical changes are evident with multiple clips in the abdomen at the midline and clips and wires in the midline of the pelvis. On postcontrast images, there is increased attenuation of the fluid filled small bowel thickening in the proximal jejunum just distal to the duodenum. There is also focal punctate high attenuation at the duodenal jejunal junction on the postcontrast image (for example coronal CT #13 image 60/[address] #14 99/222) suggesting active extravasation. There is a large outpouching of the peritoneum containing distal transverse colon and descending colon. Is also contains mesentery and most of the small bowel. It is unchanged. ABDOMINAL WALL: No definite hernia. See gastrointestinal tract. There is fat stranding in the right inguinal region likely from recent vascular access. There is also a 3.5 cm wide defect in the overlying skin and superficial subcutaneous soft tissues that is likely iatrogenic. LYMPH NODES: Normal VASCULAR: Moderate multifocal vascular opacifications are seen. PELVIC VISCERA: Unremarkable OSSEOUS STRUCTURES: Moderate degenerative disc disease is present at L2-3 and L3-4 with grade [address] at both levels. [address]/CT gi bleed abd pel wo/w IVcon IMPRESSION: Possible active extravasation at the duodenal jejunal junction. There is focal hyperenhancement at the duodenal jejunal junction that could represent a prominent vessel versus an area of extravasation. Luminal content within the jejunum appears increased in the postcontrast images and decreases on 2 minute delayed images, but remains elevated compared to the precontrast study. 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 Left nephrectomy. Fleischner guidelines were followed. Electronically signed by: Jonh Ames MD 05/15/2025 12:44 PM EDT
--- NOTE | 2025-05-15 10:10 | ED.GENADULT ---
HPI - General Adult General Chief complaint: GI Bleed Stated complaint: GI BLEED PER EMS Time Seen by Provider: 05/15/25 10:09 Source: patient Mode of arrival: ambulatory Limitations: other (poor historian ) History of Present Illness ED Provider: ALLAN Torres HPI narrative: This is a 59-year-old male history of ESRD, cardiomyopathy, NSTEMI, anemia, AFib with rapid ventricular response, presenting to the emergency department with rectal bleeding x1 day. Patient reports earlier today she had a bowel movement and was passing large bright red clots. She reports yesterday she had a procedure done where they tied off her hemorrhoids. This procedure was done at [facility]. She reports painless bleeding. Related Data Home Medications ?Medication ?Instructions ?Recorded ?Confirmed sevelamer HCl 800 mg tablet 800 mg PO QIDWMHS 09/14/24 04/19/25 oxycodone 5 mg tablet 5 mg PO Q6H PRN Pain (Scale Score 04/19/25 04/19/25 4-6) Previous Rx's ?Medication ?Instructions ?Recorded blood pressure monitor #1 ea 11/10/23 sitz bath #1 ea 11/13/23 Grab bar #1 ea 11/22/23 Shower Chair #1 ea 11/22/23 bed rail #1 ea 11/22/23 hand held shower #1 11/22/23 pill box twice daily #1 ea 11/22/23 atorvastatin 80 mg tablet 80 mg PO BEDTIME 90 days #90 tabs 09/11/24 sitz bath #1 ea 09/11/24 recliner #1 11/24/24 carvedilol 6.25 mg tablet 6.25 mg PO BID #180 tabs 01/27/25 gabapentin 100 mg capsule 100 mg PO TID #90 caps 02/17/25 hydrocortisone 2.5 % topical cream 1 appl AK BID #30 grams 04/22/25 with perineal applicator (Proctozone-HC) Allergies Allergy/AdvReac Type Severity Reaction Status Date / Time Penicillins Allergy Intermediate RASH Verified 05/15/25 10:13 Review of Systems Review of Systems: Yes all other systems are reviewed and are negative PMFSH Past Medical History Attestation statement: The following information was validated with the patient. Source: old records reviewed and nursing notes reviewed Medical History ESRD (end stage renal disease) on dialysis Cardiomyopathy Noncompliance of patient with renal dialysis ESRD (end stage renal disease) on dialysis Back pain Asthma History of blood transfusion NSTEMI (non-ST elevated myocardial infarction) Atrial fibrillation Acute on chronic kidney failure Secondary hyperparathyroidism (of renal origin) Anemia in chronic kidney disease (CKD) Chronic systolic (congestive) heart failure CKD (chronic kidney disease) stage 5, GFR less than 15 ml/min Essential hypertension Normocytic anemia Surgical History History of esophagogastroduodenoscopy (EGD) Hx of colonoscopy History of surgery Status post dilation and curettage History of abdominal surgery History of extraction of renal calculus History of tubal ligation Family History Family History Father Throat cancer Mother Hypertension Daughter In good health Daughter In good health Sister In good health Family/Other Breast cancer Social History Social History Household Members: None Housing: Apartment Housing Other:: studio Are you a primary wound care center consultant to a significant other at home: No Do you presently have visiting nurse or other home services: No Unable to assess alcohol history related to: Unknown Alcohol intake: never Comment: Pt declining bed alarm Patient Tobacco Use Status: Former Tobacco user Tobacco use type: Cigarette Years Smoked: 30 +/- Smoked in Last 30 Days: No e-Cigarette/Vaping Use: Never Used Second Hand Smoke Exposure: No Use of substances other than those prescribed or required for medical reasons: No Advance Directives: Yes Advance Directives on File: Yes Advance Directives Date on File: 11/21/23 Patient : No service: No Current occupational status: unemployed Cognitive needs: No Hearing needs: No Vision needs: No Physical Exam ED Exam Exam: Appearance: Alert.? Oriented X3.? No acute distress.? Head: Normocephalic, atraumatic, no step-offs or deformities Eyes: Pupils equal, round and reactive to light.? ENT: Pharynx normal.? Neck: Normal inspection.? Neck supple.? CVS: Normal heart rate and rhythm.? Pulses normal.? Respiratory: No respiratory distress.? Breath sounds normal.? Abdomen: Soft and nontender.? MATTHEW: bright red blood per rectum small amount. Skin: Skin warm and dry.? Normal skin color.? Normal skin turgor.? Extremities: No lower extremity edema.? No calf ttp. 5/5 strength to bilateral upper and lower extremities Back: No midline tenderness, no C-spine tenderness, full range of motion, no CVA tenderness bilaterally Neuro: Oriented X 3.? No motor deficit.? No sensory deficit. CN 2-12 intact Vital Signs: Vital Signs - 24 hr 05/15/25 10:10 05/15/25 10:29 05/15/25 12:04 Temperature 98.7 F 98.4 F Pulse Rate 105 H 97 98 Respiratory Rate 19 18 20 Blood Pressure 137/80 138/91 H 159/77 H Pulse Oximetry 98 96 100 Oxygen Delivery Method Room Air Room Air Room Air 05/15/25 13:43 05/15/25 13:52 05/15/25 14:00 Temperature 98.2 F 98.2 F 98.7 F Pulse Rate 87 91 88 Respiratory Rate 14 14 18 Blood Pressure 152/70 H 151/91 H 158/83 H Pulse Oximetry 96 100 Oxygen Delivery Method Room Air Room Air 05/15/25 14:03 Temperature 98.8 F Pulse Rate 84 Respiratory Rate 18 Blood Pressure 157/81 H Pulse Oximetry Oxygen Delivery Method BMI result Body Mass Index 29.7 vss Course Reevaluation(s) Reevaluation #1: Reached out to [facility] and spoke to private watchman who tells me Dr. Fisher did a procedure yesterday. He will call me back. Time: 10:12 Reevaluation #2: Spoke to Dr. Cantu she had a hemorrhoid artery embolization due to bleeding internal hemorrhoids. No complications. Mild bleeding after the procedure could be normal. This procedure doesn't always work immediately this could take weeks to work. May need GI to scope. Time: 10:23 Reevaluation #3: Patient's CBC with a normocytic anemia hemoglobin 6.8, hematocrit 21.8. Chemistry with elevated BUN 72, creatinine 8.66 patient is due for dialysis today. I did discuss this with Nephrology, if we keep patient in the hospital she may be able to get dialyzed tomorrow. Patient is able to have a CTA done for bleeding study. 2 units packed red blood cells ordered as well as type and screen, I did obtain written and verbal consent for blood products which are in the chart. Time: 11:25 Additional Reevaluation(s): 1348 possible active extravasation at the duodenal jejunal junction. Focal hyperenhancement at the duodenal jejunal junction that could represent a prominent vessel versus an area of extravasation. Luminal content within the jejunum appears increased in the postcontrast images and decreased on 2 minute delayed images. This case was thoroughly discussed with GI as well as Interventional Radiology Dr. Cantu. There is high suspicion for rectal varices. [facility] as currently at capacity and unable to take this patient. 1541 Patient will set this facility, I did discuss this case with GI, Interventional Radiology as well as General surgery. Hospitalist aware of plan Medications Administered Discontinued Medications Generic Name Dose Route Start Last Admin Trade Name Freq PRN Reason Stop Dose Admin Iohexol 100 ml 05/15/25 12:06 05/15/25 12:07 Iohexol 350 Mg/Ml 100 Ml Infus..Btl IV 05/15/25 12:07 80 ml ONCE ONE Administration Medical Decision Making Medical Decision Making [facility] Narrative: 59 year old female presents w/ rectal bleeding since yesterday s/p unclear procedure. I suspect it is hemorrhoid embolization based off of what patient told me Physical exam with bright red blood per rectum I did obtain verbal consent to do rectal exam. Hx and pe concerning for hemmeroid bleeding s/p procedure. No reports of abdominal pain or abdominal tenderness on exam low suspicion for acute abdomen. Will rule out metabolic derangements and anemia. Plan labs, abdominal imaging. Differential Diagnosis Differential Diagnoses: The differential diagnosis associated with the presentation includes (Hx and pe concerning for hemmeroid bleeding s/p procedure. No reports of abdominal pain or abdominal tenderness on exam low suspicion for acute abdomen. Will rule out metabolic derangements and anemia.) Admission/Observation Consideration of admission/observation: Escalation of care including admission/observation considered (Possible) Lab Data [facility] Lab Attestation statement: I reviewed the patient's lab results. 05/15/25 10:19 05/15/25 10:19 Labs: Lab Results 05/15/25 05/15/25 Range/Units 10:19 15:21 WBC 6.2 (4.8-10.8) X10*3/uL RBC 2.41 L (4.20-5.50) X10*6/uL Hgb 6.8 L* D (12.0-16.0) g/dl Hct 21.8 L (37.0-47.0) % MCV 90.5 (80.0-98.0) fL MCH 28.2 (27.0-33.0) pg MCHC 31.2 (31.0-35.0) g/dl RDW 16.4 H (11.0-16.0) % Plt Count 129 L (160-400) X10*3/uL MPV 10.9 (9.4-12.3) fL Immature Gran % (Auto) 0.3 (0.0-0.4) % Neut % (Auto) 74.0 H (45-73) % Lymph % (Auto) 17.4 L (20-40) % [place] % (Auto) 6.5 (2-11) % Eos % (Auto) 1.5 (0-4) % Baso % (Auto) 0.3 (0-2) % Lymph # (Auto) 1.1 L (1.2-4.9) X10*3/uL [place] # (Auto) 0.4 (0.1-1.2) X10*3/uL Eos # (Auto) 0.1 (0.0-0.4) X10*3/uL Baso # (Auto) 0.0 (0.0-0.2) X10*3/uL Abs Immat Gran (auto) 0.02 (0.00-0.03) X10*3/uL Absolute Neuts (auto) 4.6 (2.0-8.3) x10*3/uL Absolute Nucleated RBC 0.000 (0.0-0.012) X10*3/uL Nucleated RBC % (auto) 0.0 (0.0-0.2) /100WBC Sodium 141 (135-145) mmol/L Potassium 5.1 (3.3-5.1) mmol/L Chloride 115 H (96-108) mmol/L Carbon Dioxide 16 L (22-29) mmol/L Anion Gap 15 (12-20) BUN 72 H (9-16) mg/dL Creatinine 8.66 H* (0.5-1.4) mg/dL Estim Creat Clear Calc 7.3 Estimated GFR 5 Random Glucose 88 (60-115) mg/dL Calcium 8.1 L (8.4-10.2) mg/dL Magnesium 2.3 (1.6-2.6) mg/dL Total Bilirubin 0.3 (0.0-1.0) mg/dL AST 20 (5-31) U/L ALT 13 (0-31) U/L Alkaline Phosphatase 68 (39-117) U/L Total Protein 6.3 L (6.5-8.0) g/dL Albumin 3.5 (3.5-5.0) g/dL Urine Color Yellow Urine Appearance Clear Urine pH 8.0 (5.0-9.0) Ur Specific Dennis 1.015 (1.005-1.025) Urine Protein 100 (2+) H (Neg-Trace) mg/dL Urine Glucose (UA) 100 H (Negative) mg/dL Urine Ketones Negative (Negative) mg/dL Urine Blood Moderate (2+) H (Negative) Urine Nitrite Negative (Negative) Ur Leukocyte Esterase Negative (Negative) Urine RBC 0-2 (0-2) /HPF Urine WBC 0-5 (0-5) /HPF Ur Squamous Epith Cells 0-2 (0-2) /HPF Urine Bacteria None Seen (None Seen) Hyaline Casts 0-2 (0-2) /LPF Stool Occult Blood POSITIVE (NEGATIVE) Blood Type A Positive Antibody Screen NEGATIVE Crossmatch (AHG) See Detail Independent Interpretation I performed an independent interpretation of an: CT Scan Radiology Impression Discussion of test interpretation with radiology: I have reviewed the radiologist's reading. External Record Review External record reviewed: Inpatient record, Office record, Outpatient record, Prior outpatient labs, Prior outpatient radiology, Primary care record and Outside ED record Chronic Conditions Patient?s care impacted by: Other (see hpi) Critical Care Time Critical Care Time Critical Care Time: Yes Total Critical Care Time: 35 Attestation: I attest to this time spent taking care of the patient, obtaining history, physical, reviewing labs, imaging, treatment of patients condition +/- specialist/hospitalist consult +/- procedure Discharge Plan Discharge Clinical Impression: CKD (chronic kidney disease), Bright red rectal bleeding, Anemia Patient Disposition: Admitted As Inpatient Print Language: English
[2025-05-15 10:38] LABS: MANUAL DIFF FLAG NO
[2025-05-15 10:44] LABS: Hematocrit 21.8 % (37.0-47.0); Imm Gran Abs Auto 0.02 X10*3/uL (0.00-0.03); Imm Gran Pct Auto 0.3 % (0.0-0.4); Lymphocytes Absolute Auto 1.1 X10*3/uL (1.2-4.9); Mean Corpuscular HGB Conc 31.2 g/dl (31.0-35.0); Mean Corpuscular Hemoglobin 28.2 pg (27.0-33.0); Mean Corpuscular Volume 90.5 fL (80.0-98.0); NRBC Abs Auto 0.000 X10*3/uL (0.0-0.012); NRBC Pct Auto 0.0 /100WBC (0.0-0.2); Platelet Count 129 X10*3/uL (160-400); Red Blood Count 2.41 X10*6/uL (4.20-5.50); White Blood Count 6.2 X10*3/uL (4.8-10.8)
[2025-05-15 10:45] LABS: OBS Int Ctl Valid YES; OBS1 POSITIVE (NEGATIVE)
[2025-05-15 10:50] LABS: Hemoglobin 6.8 g/dl (12.0-16.0)
[2025-05-15 11:04] LABS: Alanine Aminotransferase 13 U/L (0-31); Albumin Level 3.5 g/dL (3.5-5.0); Alkaline Phosphatase 68 U/L (39-117); Anion Gap 15 (12-20); Aspartate Amino Transferase 20 U/L (5-31); Blood Urea Nitrogen 72 mg/dL (9-16); Calcium 8.1 mg/dL (8.4-10.2); Carbon Dioxide 16 mmol/L (22-29); Chloride 115 mmol/L (96-108); Creatinine Clr Calc Pharmacy 7.3; Estimated Glomerular Filt Rate 5; Magnesium 2.3 mg/dL (1.6-2.6); Potassium 5.1 mmol/L (3.3-5.1); Sodium 141 mmol/L (135-145); Total Protein 6.3 g/dL (6.5-8.0)
[2025-05-15] MEDS: iohexoL 350 MG/ML 100 ML INFUS..BTL IV (12:07)
--- OUTSIDE RECORDS SUMMARY | 2025-05-15 12:13 | XMS_ITS | Continuity of Care Document ---
Author Name instED, Medical Address [address] [place] [address] Organization Unknown Address [address] [place] [address] Medications No known medications Problems No known problems
--- OUTSIDE RECORDS SUMMARY | 2025-05-15 12:13 | XMS_ITS ---
Author Organization [facility] Address [address] [place] [address] Care Team Providers Care Physicist [place] Name Role Phone Emanuel Scruggs Primary Care Provider [phone] Transplant Episode Kidney Candidate [facility] ([place], [place]) - JEIMY Evaluation began on 09/01/2024 Marked as Active on 09/01/2024 Kidney CoordinatorKimber Fallon RN Fax: N/A Email: N/A Scores Score Value Updated Exceptions/Reas ons CPRA Not available EPTS (Calc) 28 05/15/2025 [place] Organ Diagnosis Organ Primary Contributory Kidney Hypertensive Nephrosclerosis Care Team Name Role Phone Fax Email Kimber Fallon RN Kidney Coordinator [phone] N/A N/A Danis Betancur Referring Physician [phone] N/A Events Pre-Transplant Referred: 07/07/2024 Evaluation began: 09/01/2024 Appointments (04/14/2025 - 06/14/2025) When With Visit Type Description 04/16/2025 Transplant - Lott, D Follow Up Abdomi nal wall hernia (Primary Dx); ESRD (end stage renal disease) (HCC); Hemodialysis patient (HCC); Hyperparathyroidism, secondary renal (HCC) 04/16/2025 Transplant - Lott, D Follow Up Cancel ed (Provider - Sooner Appt Granted) Dialysis History Dialysis History Start End Type Comments Center 11/24/2024 In-center Hemodialysis Suman Morataya [facility] Dialysis Center Information Center Phone Fax Address [facility] [phone] [place] [id number]
--- OUTSIDE RECORDS SUMMARY | 2025-05-15 12:13 | XMS_ITS | Clinical Summary ---
Author Organization [facility] Address [address] [place] [address] Care Team Providers Care Protection Engineer Name Role Phone Emanuel Scruggs Primary Care Provider [phone] Allergies Active Allergy Reactions Criticality Noted Date [...] Team Description 04/16/2025 2:30 PM EDT Follow-Up [facility]plant [facility] [address] [place] [address] Natasha Lott MD Abdominal wall hernia (Primary Dx); ESRD (end stage renal disease) (HCC); Hemodialysis patient (HCC); Hyperparathyroidism, secondary renal (HCC) 04/16/2025 Documentation [facility] Transplant Department [address] [place] [address] Kimber Fallon, RN Kidney Eval 03/10/2025 Telephone [facility] Transplant Department [address] [place] [address] Kimber Fallon, RN 03/03/2025 Telephone [facility] Transplant Department [address] [place] [address] Kimber Fallon, RN from Last 3 Months [...] Info) Description 08/19/2025 1:40 PM EST Follow-Up [facility] Renal Transplant [address] [place] [address] Tito Patricio MD [address] [place], [place] [phone] Devante Juarez MD [address] [place], [place] [phone] 08/19/2025 2:00 PM EST Social Work [facility] Renal Transplant [address] [place] [address] Tito Patricio MD [address] [place], [place] [phone] [facility] Health Maintenance Due Date Last [...] DTaP,Tdap,and Td Vaccines (1 - Tdap) 1987 Diabetes Screening [address] Lung Cancer Screening (Baseline) 2015 Zoster Vaccines (1 of 2) 2015 Alcohol/Substance Use Screening 09/03/2024 Depression Screening and Follow-Up 09/03/2024 Social Drivers of Health Annual Screening 09/03/2024 COVID-19 Vaccine ( - season) 2025 Influenza Vaccine (#1) 2025 Hemoglobin 09/01/2025 09/01/2024 PTH 09/01/2025 09/01/2024 Phosphorus 09/01/2025 09/01/2024 RSV Vaccine (60+ years old a nd patients) (1 - 1-dose 75+ series) 2040 CKD: Referral to Nephrology Completed 09/01/2024 HIV Screening Completed 09/01/2024 Hepatitis C Screening Completed 09/01/2024 Procedures * Due to [place] [employer] law, this organization might not be sharing [...] to Health Maintenance Results * Due to [place] [employer] law, this organization might not be sharing [...] - 3.90 10*3/uL 09/01/2024 3:19 PM EST [facility] Monocyte # 0.30 0.20 - 0.95 10*3/uL 09/01/2024 3:19 PM EST [facility] Eosinophil # 0.10 0.02 - 0.50 10*3/uL 09/01/2024 3:19 PM EST [facility] Basophil # <0.03 0.00 - 0.20 10*3/uL 09/01/2024 3:19 PM EST [facility] nRBC % 0.0 /100 WBCs 09/01/2024 3:19 PM EST [facility] nRBC # <0.01 <0.01 10*3/uL 09/01/2024 3:19 PM EST [facility] Blood Structure of peripheral vein / Unknown Venipuncture / Unknown 09/01/2024 2:46 PM EST 09/01/2024 3:10 PM EST us Tito Patricio MD LAB BLOOD ORDERABLES Final Resu lt [facility] [address] [place] [address], * Hepatitis C Antibody w/Reflex to PCR (09/01/2024 2:46 PM EST) Hepatitis C Antibody NON-REACT JILL NON-REACT JILL 09/02/2024 7:23 AM EST [employer] [facility] Comment: HCV antibody was non-reactive. There is no laboratory evidence of HCV infection. In most cases, no further action is required. However, if recent HCV exposure is suspected, a test for HCV RNA (test code 70707) is suggested. For additional information please refer to http://education.Zayo/faq/BUV71h4 (This link is being provided for informational/ educational purposes only.) Blood Structure of peripheral vein / Unknown Venipuncture / Unknown 09/01/2024 2:46 PM EST 09/01/2024 3:07 PM EST Narrative [facility] - 09/02/2024 7:23 AM EST [facility] Received Date:[id number] us Tito Patricio MD LAB BLOOD ORDERABLES Final Resu lt Performing Organization Address City/[facility]/ZIP Co de Phone Number [facility] [address] [facility] [address], [place] [address], [place] [phone] [employer] [facility] [address] [facility] [address] [facility] [address], [place] [address], [place] [phone] * (ABNORMAL) Phosphorus (09/01/2024 2:46 PM EST) Phosphorus 8.2(H) 2.5 - 4.5 mg/dL 09/01/2024 3:52 PM EST [employer] [facility] Blood Structure of peripheral vein / Unknown Venipuncture / Unknown 09/01/2024 2:46 PM EST 09/01/2024 3:10 PM EST us Tito Patricio MD LAB BLOOD ORDERABLES Final Resu lt Performing Organization Address City/[facility]/ZIP Co de Phone Number [employer] [facility] [address] [place] [address], * (ABNORMAL) PTH, Intact (without Calcium) (09/01/2024 2:46 PM EST) Parathyroid Hormone, Intact 1488(H) 16 - 77 pg/mL 09/03/2024 7:22 AM EST [employer] [facility] Comment: Interpretive Guide Intact PTH Calcium [...] LAB BLOOD ORDERABLES Final Resu lt [facility] [address] [facility] [address], [place] [address], [place] [phone] [facility] [address] [facility] [address], [place] [address], [place] [phone] from Last 3 Months or Most Recently Relevant to Health Maintenance Insurance [facility] Care Teams Protection Engineer Relationship Specialty Start Date End Date Emanuel Scruggs [address] [place] [id number] PCP - General 03/22/17
--- OUTSIDE RECORDS SUMMARY | 2025-05-15 12:13 | XMS_ITS | Clinical Summary ---
Author Organization [facility], Address [address] [place] [address] Phone Care Team Providers Care Fluxer Name Role Phone Mary Garcia LISA Primary Care Provider [phone] Allergies Active Allergy Reactions Criticality Noted Date [...] in the evening. Active ergocalciferol 1.25 MG (86653 UT) capsule Take 1 capsule by mouth [...] Encounters Date Type Department Care Team Description 05/06/2025 Orders Only [facility] [address] [address] Tima Salas MD 05/01/2025 Telephone [facility] [address] [place] [address] Viv Aguilera 04/22/2025 Telephone [facility] [address] [place] [address] Nanci Chowdary 04/08/2025 Orders Only [facility] [address] [address] Tima Salas MD 04/07/2025 2:00 PM EDT Office Visit [facility] [address] [place] [address] [place] [address] Fredo Walsh MD End stage renal disease (HCC) (Primary Dx) 04/07/2025 Documentation Only [facility] [address] [place] [address] Delilah Alanis 04/03/2025 Telephone [facility] [address] [place] [address] Yessica Munoz 04/03/2025 Telephone [facility] [address] [place] [address] Yessica Munoz 03/18/2025 Orders Only [facility] [address] [address] Tima Salas MD 03/12/2025 8:45 AM EDT Office Visit [facility] [address] [place] [phone] Fredo Walsh MD End stage renal disease (HCC) (Primary Dx) 03/10/2025 Telephone [facility] [address] [place] [address] [place] [phone] Viv Aguilera 03/04/2025 Orders Only [facility] [address] [place] [address] Tima Salas MD from Last [...] Care Team (Late st Contact Info) Description 05/19/2025 9:30 AM EDT Office Visit [facility] - [facility] [address] [place] [address] [place] [phone] Health Maintenance Due Date Last Done Comments [...] Date/Time Associated Diagnosis Comments HD KINETICS Routine 05/06/2025 CHEMISTRY Routine 05/06/2025 POST CHEMISTRY Routine 05/06/2025 HD KINETICS Routine 04/08/2025 POST CHEMISTRY Routine 04/08/2025 CHEMISTRY Routine 04/08/2025 THYROIDS Routine 03/18/2025 CHEMISTRY Routine 03/18/2025 CHEMISTRY Routine 03/18/2025 IMMUNO CHEMISTRY Routine 03/18/2025 HEMATOLOGY Routine 03/18/2025 HD KINETICS Routine 03/04/2025 CHEMISTRY Routine 03/04/2025 POST CHEMISTRY Routine 03/04/2025 THYROIDS Routine 02/18/2025 CHEMISTRY Routine 02/18/2025 CHEMISTRY Routine 02/18/2025 from Last 3 Months Results * (ABNORMAL) HD KINETICS (05/06/2025) Only the most recent of3 resultswithin the time period is included. % Urea Reduction 48(L) 65 - 80 % [facility] 05/06/2025 05/07/2025 12: 27 PM EDT Narrative [facility] - 05/08/2025 Unless otherwise specified, test(s) performed at: [email or web address], [address] [place], [place] [id number] MOTOR SCOOTER MECHANIC: Latrell Pollack M.D. For any questions, please call customer service at FREQUENCY:OTHER Resulting Agency Comment Specimen source: Plasma Tima Salas MD LAB BLOOD ORDERABLES Final Re sult Performing Organization Address [facility] de Phone Number [facility] See order comments or contact performing lab Unknown, [place] * (ABNORMAL) POST CHEMISTRY (05/06/2025) Only the most recent of3 resultswithin the time period is included. BUN Post Dialysis 49(H) 6 - 19 mg/dL [facility] 05/06/2025 05/07/2025 12: 27 PM EDT Narrative [facility] - 05/07/2025 Unless otherwise specified, test(s) performed at: [email or web address], [address] [place] [address] MOTOR SCOOTER MECHANIC: Latrell Pollack M.D. For any questions, please call customer service at FREQUENCY:OTHER Resulting Agency Comment Specimen source: Plasma Tima Salas MD LAB BLOOD ORDERABLES Final Re sult Performing Organization Address [facility] de Phone Number [facility] See order comments or contact performing lab Unknown, [place] * (ABNORMAL) [facility] (05/06/2025) Only the most recent of7 resultswithin the time period is included. BUN 94(H) 6 - 19 mg/dL [facility] 05/06/2025 05/07/2025 12: 22 PM EDT Narrative [facility] - 05/08/2025 Unless otherwise specified, test(s) performed at: [email or web address], [address] [place] [address] [employer]OR S[employer]OT[employer] MECHANIC: Latrell Pollack M.D. For any questions, please call customer service at FREQUENCY:OTHER Resulting Agency Comment Specimen source: Serum Tima Salas MD LAB BLOOD ORDERABLES Final Re sult Performing Organization Address [facility] de Phone Number [facility] See order comments or contact performing lab Unknown, [place] * (ABNORMAL) THYROIDS (03/18/2025) Only the most recent of2 resultswithin the time period is included. TSH 3.761(H) 0.300 - 3.000 mIU/L [facility] Comment: The reference range of 0.300-3.000 mIU/L is recommended by the [place] [employer]ocrinologists (AACE). An ESRD [...] ORDERABLES Final Re sult Performing Organization Address [facility] de Phone Number [facility] See order comments or contact performing lab Unknown, [place] * IMMUNO CHEMISTRY (03/18/2025) Pathologist [facility] Hep B Surface Ag Negative Negative [facility] Hepatitis B Surface Ab 25 mIU/mL [facility] Comment: The anti-HBs (Hepatitis B surface antibody) [...] BLOOD ORDERABLES Edited R esult - Final [facility] See order comments or contact performing lab Unknown, [place] * (ABNORMAL) HEMATOLOGY (03/18/2025) WBC 5.87 4.80 - 10.80 1000/mcL [facility] [...] 03/19/2025 Unless otherwise specified, test(s) performed at: [email or web address], [address] [place] [address] MOTOR SCOOTER MECHANIC: Latrell Pollack M.D. For any questions, please call customer service at FREQUENCY:MONTHLY Resulting Agency Comment Specimen source: Blood Tima Salas MD LAB BLOOD ORDERABLES Final Re sult [facility] See order comments or contact performing lab Unknown, [place] from Last 3 Months Insurance [facility] [phone] [place] [address] Dual SNP ([id number]) [place] [phone] Care Teams Fluxer Relationship Specialty Start Date End Date Mary Garcia FNP [address] [place] [phone] PCP - General 06/19/22
--- OUTSIDE RECORDS SUMMARY | 2025-05-15 12:14 | XMS_ITS | Encounter Summary ---
Author Organization [facility] Address [address] [place] [address] Encounters * CPT with Medical instED at [employer] on 2025-04-08 Delvin is a 59 yo [place]ad[place] female with hx of but not all inclusive of HTN, CKD 5 HD MWF, anemia, acquired absence of kidney, anemia, Chronic S CHF, esophagitis, chest pain, Dyspnea, and GIB. Allergies toPVCN. Delvin's daughter Gypsy calling in from number [phone] reporting that Delvin has been receiving HD MWF via [facility]. Mb had left arm fistula surgery done last . Mbr still getting HD through [facility]. However, dgtr noted that the left arm, hand and fingers very swollen and brought mbr to [facility] for eval. However, did not treat and redirected Mbr to [facility] where mbr had fistula surgery. Dgtr stated she did that this Sunday and [facility] Provider did not see anythingwrong with post-surgical fistula arm. Mbr sent home. Fariba states fistula arm swollen and looked worse today. Mbr went to HD today and they gave Mbr one-time dose of antibiotic today at HD. Dgtr still concerned and would like insted to come out to check left arm for s/s infection. Instructed Fariba to take Mbr to ER and she declined at this time and would like insted to come out and check Mbr first. Asked if mbr can move left fingers and she stated yes. Fingers slightly cool to touch and very swollen on left hand. Instructed dgtr to take Mbr to er if worsening s/s and worsening cms. She agreed. Confirmed address and phone/[phone]. Alerted CC via [employer] activity. { reasonForRequest : extremity swelling , patientReports : , denies :[], chiefComplaints : Extremity Swelling, Wound Care , pmh : Chronic Kidney Disease, Hypertension, Congestive Heart Failure , allergies : Penicillins , otherAllergies :null, painAssessment : &quo t;, visitOutcome : , additionalComments : Reviewed HPI } Encountered patient conscious alert and ambulatory. Patient reports on 04/02/25 she underwent a fistula placement procedure at [facility] and was discharged the same day. Patient reports increased swelling since 04/03/2025 and reports she was seen at a local emergency room which did not treat her and advised she return to [facility], which she has yet to do. Patient denies chest pain, fevers and shortness of breath. Skin warm, dry and of appropriate color for ethnicity. Head and neck, free of trauma and edema. -JVD. Breath sounds present, clear and equal bilaterally. Abdomen soft, non-tender and non-distended. Lower extremities, free of trauma and edema. Left upper extremity exhibits gross inflammation, ranging from the bottom of the deltoid and extending down to patient???s fingers, pictures uploaded via [employer] radial pulse present but faint. Right upper extremity free of trauma and edema. [facility] contacted: states patient should be transported to the emergency room immediately for a suspected acute infection and this time patient should seek transport to the facility which performed the surgery. Patient verbalizes agreement and states she is agreeable to transport to [facility]. 911 was arranged by this fha underwriter on behalf of patient. Patient care was relinquished to [facility] crew with verbal report given; transport destination [facility]. IV_(FLUIDS_AND/OR_MEDICATION), MEDICATION_IM, ORAL_MEDICATION, WOUND_CARE, ORTHOSTATIC_VITAL_SIGNS Written by [employer] [facility] on 2025-04-08
--- OUTSIDE RECORDS SUMMARY | 2025-05-15 12:14 | XMS_ITS | Clinical Summary ---
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 Name Role Phone Rebecca Ferraro MD Primary [...] 08/06/2022 Social Influencers of Health Screening 08/06/2022 Depression Screening 09/03/2024 COVID-19 Vaccine (1 - 2023-2 5 season) 2025 Influenza Vaccine (#1) 2025 RSV Immunization Adult [...] patient's age to complete this topic Insurance [facility] Member Subscriber Plan / Payer ( fective 2024-2098) Name:Anh Kitchen Relation to Subscriber:Self Name:Imtiaz Anh Payer ID:[id number] Group ID:Not on file Type:Not on file Address: [address] [address] MEDICA[place] - [place] Care Teams Bricklayer Paving Brick Relationship Specialty Start Date End Date Rebecca Ferraro MD [address] [place] [phone] PCP - General Internal Medicine 04/17/22
--- OUTSIDE RECORDS SUMMARY | 2025-05-15 12:14 | XMS_ITS | Continuity of Care Document ---
Author Name Dino Reis Address [address] [place] [id number] Organization Unknown Address [address] [place] [address] Medications No known medications Problems No known problems
--- OUTSIDE RECORDS SUMMARY | 2025-05-15 12:14 | XMS_ITS | Encounter Summary ---
Author Organization [employer] Address [address] [place] [address] Care Team Providers Care Plastic Cutter Name Role Phone Rebecca Ferraro MD Primary Care Prov ider Encounter Details Date Type Department Care Team (Late st Contact Info) Description 01/07/2025 Lab Requisition [facility] Lab [address] [place] [address] Danis Betancur MD [address] [place] [address] Anemia in other chronic diseases [...] LAB HEMETOLOGY METHOD 01/07/2025 9:02 AM EDT [facility] Blood Venous blood specimen / Unknown 01/07/2025 7:20 AM EDT 01/07/2025 8:44 AM EDT us Danis Betancur MD LAB BLOOD ORDERABLES Final Resul t [facility] [address] [place] [address], documented in this encounter Visit Diagnoses Diagnosis Anemia in other chronic diseases classified elsewhere documented in this encounter Care Teams Plastic Cutter Relationship Specialty Start Date End Date Rebecca Ferraro MD [address] [place] [phone] PCP - General Internal Medicine 04/17/22 documented as of this encounter
[2025-05-15 15:28] LABS: Appearance Urine Clear; Glucose Urine UA 100 mg/dL (Negative); PH 8.0 (5.0-9.0); Specific Gravity - Urine 1.015 (1.005-1.025); UMIC TRIGGER UACC YES
--- NOTE | 2025-05-15 15:46 | P.CONGS_ITS ---
History of Present Illness Consult details Consult date: 05/15/25 Narrative: [age] year old female with multiple medical problems including stage renal disease, on hemodialysis, chronic anemia, cardiomyopathy, here in the ER because of passage of blood per rectum She apparently had embolization of her hemorrhoids with Dr. Cantu at the [facility] yesterday. She says that after that, she had been passing blood and clots at home. She said this happened all night. She therefore decided to come to the emergency room this morning She says that she has not had significant passage of blood since this morning. She denies any dizziness, or orthostatic symptoms. She denies any pain in the anus. Review of Systems 2 Constitutional: Constitutional: Denies chills and Denies fever(s) Cardiovascular: Cardiovascular: Reports dyspnea on exertion Respiratory: Respiratory: Denies cough and Reports dyspnea on exertion Gastrointestinal: Gastrointestinal: Denies abdominal pain and Denies vomiting Genitourinary: Comments: On hemodialysis [facility] Past Medical History Medical History ESRD (end stage renal disease) on dialysis Cardiomyopathy Noncompliance of patient with renal dialysis ESRD (end stage renal disease) on dialysis Back pain Asthma History of blood transfusion NSTEMI (non-ST elevated myocardial infarction) Atrial fibrillation Acute on chronic kidney failure Secondary hyperparathyroidism (of renal origin) Anemia in chronic kidney disease (CKD) Chronic systolic (congestive) heart failure CKD (chronic kidney disease) stage 5, GFR less than 15 ml/min Essential hypertension Normocytic anemia Family History Family History Father Throat cancer Mother Hypertension Daughter In good health Daughter In good health Sister In good health Family/Other Breast cancer Surgical History Surgical History History of esophagogastroduodenoscopy (EGD) Hx of colonoscopy History of surgery Status post dilation and curettage History of abdominal surgery History of extraction of renal calculus History of tubal ligation Social History Social History Household Members: None Housing: Apartment Housing Other:: studio Are you a primary acute care nurse to a significant other at home: No Do you presently have visiting nurse or other home services: Yes Unable to assess alcohol history related to: Unknown Alcohol intake: never Comment: Pt declining bed alarm Patient Tobacco Use Status: Former Tobacco user Tobacco use type: Cigarette Years Smoked: 30 +/- e-Cigarette/Vaping Use: Never Used Second Hand Smoke Exposure: No Advance Directives Date on File: 11/21/23 service: No Current occupational status: unemployed Cognitive needs: No Hearing needs: No Vision needs: No Meds Allergies Allergy/AdvReac Type Severity Reaction Status Date / Time Penicillins Allergy Intermediate RASH Verified 05/15/25 10:13 Physical Exam 2 Vital Signs: Vital Signs: Last Vital Signs Temp 98.8 F 05/15/25 14:03 Pulse 84 05/15/25 14:03 Resp 18 05/15/25 14:03 BP 157/81 H 05/15/25 14:03 Pulse Ox 100 05/15/25 14:00 O2 Del Method Room Air 05/15/25 14:00 BMI result Body Mass Index 29.7 Const: General: comfortable and no acute distress Resp: Effort & Inspection: normal respiratory effort Cardio: Rate: regular rate GI: Other: Rectal exam deferred for now Palpation (GI): Soft to palpation, not firm and nontender Results Labs 05/17/25 06:47 05/17/25 06:47 Labs: Abnormal lab results 05/15/25 05/15/25 Range/Units 10:19 15:21 RBC 2.41 L (4.20-5.50) X10*6/uL Hgb 6.8 L* D (12.0-16.0) g/dl Hct 21.8 L (37.0-47.0) % RDW 16.4 H (11.0-16.0) % Plt Count 129 L (160-400) X10*3/uL Neut % (Auto) 74.0 H (45-73) % Lymph % (Auto) 17.4 L (20-40) % Lymph # (Auto) 1.1 L (1.2-4.9) X10*3/uL Chloride 115 H (96-108) mmol/L Carbon Dioxide 16 L (22-29) mmol/L BUN 72 H (9-16) mg/dL Creatinine 8.66 H* (0.5-1.4) mg/dL Calcium 8.1 L (8.4-10.2) mg/dL Total Protein 6.3 L (6.5-8.0) g/dL Urine Protein 100 (2+) H (Neg-Trace) mg/dL Urine Glucose (UA) 100 H (Negative) mg/dL Urine Blood Moderate (2+) H (Negative) Crossmatch (AHG) See Detail Short CBC 05/15/25 Range/Units 10:19 WBC 6.2 (4.8-10.8) X10*3/uL Hgb 6.8 L* D (12.0-16.0) g/dl Hct 21.8 L (37.0-47.0) % Plt Count 129 L (160-400) X10*3/uL BMP 05/15/25 10:19 Sodium 141 Potassium 5.1 Chloride 115 H Carbon Dioxide 16 L BUN 72 H Creatinine 8.66 H* Calcium 8.1 L Liver Function 05/15/25 Range/Units 10:19 Total Bilirubin 0.3 (0.0-1.0) mg/dL AST 20 (5-31) U/L ALT 13 (0-31) U/L Alkaline Phosphatase 68 (39-117) U/L Albumin 3.5 (3.5-5.0) g/dL Urine 05/15/25 Range/Units 15:21 Urine Color Yellow Urine Appearance Clear Urine pH 8.0 (5.0-9.0) Ur Specific [place] 1.015 (1.005-1.025) Urine Protein 100 (2+) H (Neg-Trace) mg/dL Urine Glucose (UA) 100 H (Negative) mg/dL All other labs normal. Assessment and Plan (1) Bright red rectal bleeding: Status: Acute She had been passing clots as well as blood after embolization of hemorrhoids by IR yesterday She has a not had significant bleeding since this morning She is being transfused because her hemoglobin dropped to 6.8 Currently, I do not need to do any urgent surgical intervention. Her bleeding has slowed down significantly. I would hold off on any anticoagulation for now Dr. Cantu had been informed by the emergency room physician I will follow along while she is in the hospital. (2) Anemia: Status: Acute Procedures Date of Service Date of Service: 05/17/25
--- NOTE | 2025-05-15 16:14 | PM.IMHP ---
History of Present Illness Date of Service: 05/15/25 Attending physician on admission: [facility] Chief Complaint: rectal bleeding This is a 59-year-old female who presents to the emergency department due to rectal bleeding. She was hospitalized here at [facility] from April 19 to April 22 for GI bleeding, at that time she had EGD and colonoscopy. She was noted to have large bleeding internal hemorrhoids. It was recommended for her to follow-up outpatient with General surgery for band ligation. At some point she was referred to IR for hemorrhoid artery embolization which she had done yesterday 05/14 at [facility]. Following the procedure she began having rectal bleeding which she was told was normal to some degree. However overnight she had persistent numerous episodes of bright red blood per rectum including clots which persistent until today. She presented to the emergency department for evaluation. She denies any associated abdominal pain. In the emergency department her workup was significant for acute on chronic anemia with an H/H of 6.8/21.8. 2 units of blood were ordered. CT scan of the abdomen and pelvis showed possible active extravasation at the duodenal jejunal junction. The emergency department provider discussed the case with Interventional Radiology, GI as well as surgery. IR did not feel that there was active extravasation on the imaging. All specialists involved felt that she could be transfused and monitored conservatively. There is no indication for acute surgical intervention at this time. Patient denies shortness or breath, chest pain. Review of Systems Review of Systems: Yes all other systems are reviewed and are negative Constitutional: Constitutional: Denies chills and Denies fever(s) Cardiovascular: Cardiovascular: Denies chest pain, Denies palpitations and Denies dyspnea Respiratory: Respiratory: Denies cough and Denies dyspnea Endocrine: Endocrine: Denies palpitations [facility] Medical History ESRD (end stage renal disease) on dialysis Cardiomyopathy Noncompliance of patient with renal dialysis ESRD (end stage renal disease) on dialysis Back pain Asthma History of blood transfusion NSTEMI (non-ST elevated myocardial infarction) Atrial fibrillation Acute on chronic kidney failure Secondary hyperparathyroidism (of renal origin) Anemia in chronic kidney disease (CKD) Chronic systolic (congestive) heart failure CKD (chronic kidney disease) stage 5, GFR less than 15 ml/min Essential hypertension Normocytic anemia Family History Father Throat cancer Mother Hypertension Daughter In good health Daughter In good health Sister In good health Family/Other Breast cancer Surgical History History of esophagogastroduodenoscopy (EGD) Hx of colonoscopy History of surgery Status post dilation and curettage History of abdominal surgery History of extraction of renal calculus History of tubal ligation Social History Household Members: None Housing: Apartment Housing Other:: studio Are you a primary career discovery teacher to a significant other at home: No Do you presently have visiting nurse or other home services: No Unable to assess alcohol history related to: Unknown Alcohol intake: never Comment: Pt declining bed alarm Patient Tobacco Use Status: Former Tobacco user Tobacco use type: Cigarette Years Smoked: 30 +/- Smoked in Last 30 Days: No e-Cigarette/Vaping Use: Never Used Second Hand Smoke Exposure: No Use of substances other than those prescribed or required for medical reasons: No Advance Directives: Yes Advance Directives on File: Yes Advance Directives Date on File: 11/21/23 Patient : No service: No Current occupational status: unemployed Cognitive needs: No Hearing needs: No Vision needs: No Meds Allergies Allergy/AdvReac Type Severity Reaction Status Date / Time Penicillins Allergy Intermediate RASH Verified 05/15/25 10:13 Active Medications: Current Medications Acetaminophen (Acetaminophen 325 Mg Tablet) 650 mg PO Q6H PRN PRN Reason: Pain, Mild 1-3,fever,headache Lactated Ringer's (Lr) 1,000 mls @ 100 mls/hr IVCONT .Q10H ADELA Magnesium Hydroxide (Milk Of Magnesia 30 Ml Oral.Susp) 30 ml PO DAILY PRN PRN Reason: Constipation Melatonin (Melatonin 3 Mg Tablet) 6 mg PO BEDTIME PRN PRN Reason: Insomnia Sodium Chloride (0.9 % Sodium Chloride Flush 3 Ml Syringe) 3 ml IVFLUSH QSHIFT ADELA Physical Exam Vital Signs and Narrative: Vital Signs: Last Vital Signs Temp 98.8 F 05/15/25 14:03 Pulse 84 05/15/25 14:03 Resp 18 05/15/25 14:03 BP 157/81 H 09/12/25 14:03 Pulse Ox 100 05/15/25 14:00 O2 Del Method Room Air 05/15/25 14:00 BMI result Body Mass Index 29.7 Const: General: cooperative, comfortable, no acute distress, alert and awake Nutritional Appearance: average body habitus Orientation/consciousness: patient oriented x3 Resp: Effort & Inspection: normal respiratory effort, able to speak in complete sentences, no respiratory distress and no use of accessory muscles Cardio: Rate: regular rate Neuro: General: patient oriented x3, moves all extremities and CN's II-XI intact bilaterally Results Labs 05/15/25 10:19 05/15/25 10:19 Labs: Laboratory Results - last 24 hr 05/15/25 05/15/25 10:19 15:21 MCV 90.5 MCH 28.2 MCHC 31.2 RDW 16.4 H Plt Count 129 L MPV 10.9 Immature Gran % (Auto) 0.3 Neut % (Auto) 74.0 H Lymph % (Auto) 17.4 L [place] % (Auto) 6.5 Eos % (Auto) 1.5 Baso % (Auto) 0.3 Lymph # (Auto) 1.1 L [place] # (Auto) 0.4 Eos # (Auto) 0.1 Baso # (Auto) 0.0 Abs Immat Gran (auto) 0.02 Absolute Neuts (auto) 4.6 Absolute Nucleated RBC 0.000 Nucleated RBC % (auto) 0.0 Anion Gap 15 Estim Creat Clear Calc 7.3 Estimated GFR 5 Random Glucose 88 Calcium 8.1 L Magnesium 2.3 Total Bilirubin 0.3 AST 20 ALT 13 Alkaline Phosphatase 68 Total Protein 6.3 L Albumin 3.5 Urine Color Yellow Urine Appearance Clear Urine pH 8.0 Ur Specific [place] 1.015 Urine Protein 100 (2+) H Urine Glucose (UA) 100 H Urine Ketones Negative Urine Blood Moderate (2+) H Urine Nitrite Negative Ur Leukocyte Esterase Negative Urine RBC 0-2 Urine WBC 0-5 Ur Squamous Epith Cells 0-2 Urine Bacteria None Seen Hyaline Casts 0-2 Stool Occult Blood POSITIVE Blood Type A Positive Antibody Screen NEGATIVE Crossmatch (AHG) See Detail Imaging Radiologist's Impressions: Impressions Abdomen/Pelvis CT 05/15/25 11:25 IMPRESSION: Possible active extravasation at the duodenal jejunal junction. There is focal hyperenhancement at the duodenal jejunal junction that could represent a prominent vessel versus an area of extravasation. Luminal content within the jejunum appears increased in the postcontrast images and decreases on 2 minute delayed images, but remains elevated compared to the precontrast study. 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 Left nephrectomy. Fleischner guidelines were followed. Electronically signed by: Jonh Ames MD 05/15/2025 12:44 PM EDT RP Assessment and Plan (1) Bright red rectal bleeding: Status: Acute Plan This is a 59-year-old female with a PMH significant for?EDRD on HD M/W/F, HTN, HFrEF (LVEF 40-45% on 11/2023), chronic iron deficiency anemia who underwent hemorrhoid artery embolization May 14 who presents to the emergency department with bright red blood per rectum found to have anemia Acute blood loss anemia due to GI bleeding Likely due to bleeding hemorrhoids/hemorrhoid artery embolization Although extravasation is seen on CT scan, IR does not feel that there is active bleeding requiring intervention 2 units of blood transfusing Seen by General surgery, no indication for surgical intervention at this time NPO for now follow CBC ESRD on HD MWF missed HD today will consult nephrology HTN continue carvedilol dvt ppx - mechanical devices, chemoprophylaxis contraindicated due to acute GI bleeding Quality Stroke Does the patient have a stroke diagnosis?: No VTE Prior VTE?: No VTE Risk Level:: Medical - moderate - high VTE Device Contraindication: N/A - Device Ordered VTE Drug Contraindication: Treatment Not Indicated
--- NOTE | 2025-05-15 16:51 | PM.CNNEP ---
History of Present Illness Reason for Consult Consult date: 05/15/25 Chief Complaint Chief complaint: GI Bleeding History of Present Illness Narrative: 59-year-old lady well known to the service with PMH of ESRD M/W/F through left subclavian Permcath presents to the ED due to lower GI bleed. She had multiple admissions in the past couple of months for the same reasons. Her last dialysis session was on Sunday, today her breathing is stable on room air, K 5.2 Review of Systems Constitutional: Reports body ache(s) and Denies chills Eyes: Denies exophthalmos and Denies change in vision Reports Normal hearing present and Denies bleeding gums Cardiovascular: Denies chest pain and Denies chest pain at rest Respiratory: Denies chest congestion and Denies cough Gastrointestinal: Denies melena, Denies bloating, Reports hematochezia and Reports loose stools Musculoskeletal: Denies back pain and Denies myalgias Reports Normal hearing present, Denies Neuro-related abnormal movements and Denies behavioral changes Psychiatric: Denies behavioral changes and Denies change in appetite PMFSH Past Medical History Medical History ESRD (end stage renal disease) on dialysis Cardiomyopathy Noncompliance of patient with renal dialysis ESRD (end stage renal disease) on dialysis Back pain Asthma History of blood transfusion NSTEMI (non-ST elevated myocardial infarction) Atrial fibrillation Acute on chronic kidney failure Secondary hyperparathyroidism (of renal origin) Anemia in chronic kidney disease (CKD) Chronic systolic (congestive) heart failure CKD (chronic kidney disease) stage 5, GFR less than 15 ml/min Essential hypertension Normocytic anemia Family History Family History Father Throat cancer Mother Hypertension Daughter In good health Daughter In good health Sister In good health Family/Other Breast cancer Surgical History Surgical History History of esophagogastroduodenoscopy (EGD) Hx of colonoscopy History of surgery Status post dilation and curettage History of abdominal surgery History of extraction of renal calculus History of tubal ligation Social History Social History Household Members: None Housing: Apartment Housing Other:: studio Are you a primary home care specialist to a significant other at home: No Do you presently have visiting nurse or other home services: No Unable to assess alcohol history related to: Unknown Alcohol intake: never Comment: Pt declining bed alarm Patient Tobacco Use Status: Former Tobacco user Tobacco use type: Cigarette Years Smoked: 30 +/- Smoked in Last 30 Days: No e-Cigarette/Vaping Use: Never Used Second Hand Smoke Exposure: No Use of substances other than those prescribed or required for medical reasons: No Advance Directives: Yes Advance Directives on File: Yes Advance Directives Date on File: 11/21/23 Patient : No service: No Current occupational status: unemployed Cognitive needs: No Hearing needs: No Vision needs: No Meds Allergies Allergy/AdvReac Type Severity Reaction Status Date / Time Penicillins Allergy Intermediate RASH Verified 05/15/25 10:13 Active Medications: Current Medications Acetaminophen (Acetaminophen 325 Mg Tablet) 650 mg PO Q6H PRN PRN Reason: Pain, Mild 1-3,fever,headache Lactated Ringer's (Lr) 1,000 mls @ 100 mls/hr IVCONT .Q10H ADELA Magnesium Hydroxide (Milk Of Magnesia 30 Ml Oral.Susp) 30 ml PO DAILY PRN PRN Reason: Constipation Melatonin (Melatonin 3 Mg Tablet) 6 mg PO BEDTIME PRN PRN Reason: Insomnia Sodium Chloride (0.9 % Sodium Chloride Flush 3 Ml Syringe) 3 ml IVFLUSH QSHIFT ADELA Home Medications ?Medication ?Instructions ?Recorded ?Confirmed ?Last Taken ?Type sevelamer HCl 800 mg tablet 800 mg PO QIDWMHS 09/14/24 04/19/25 02/15/25 History oxycodone 5 mg tablet 5 mg PO Q6H PRN Pain (Scale Score 04/19/25 04/19/25 Unknown History 4-6) Physical Exam Vital Signs: Last Vital Signs Temp 97.8 F 05/15/25 16:22 Pulse 88 05/15/25 16:22 Resp 16 05/15/25 16:22 BP 150/72 H 05/15/25 16:22 Pulse Ox 100 05/15/25 16:20 O2 Del Method Room Air 05/15/25 16:20 BMI result Body Mass Index 29.7 Neuro Cranial nerves: Yes Normal hearing present Results Lab Results 05/15/25 10:19 05/15/25 10:19 Lab results: Chemistry 05/15/25 10:19 Sodium 141 Potassium 5.1 Carbon Dioxide 16 L BUN 72 H Creatinine 8.66 H* Calcium 8.1 L Hematology 05/15/25 10:19 WBC 6.2 Hgb 6.8 L* D Plt Count 129 L Urinalysis 05/15/25 15:21 Urine Color Yellow Urine Appearance Clear Urine pH 8.0 Ur Specific [place] 1.015 Urine Protein 100 (2+) H Urine Glucose (UA) 100 H Urine Ketones Negative Urine Blood Moderate (2+) H Urine Nitrite Negative Ur Leukocyte Esterase Negative Urine RBC 0-2 Urine WBC 0-5 Ur Squamous Epith Cells 0-2 Hyaline Casts 0-2 Assessment and Plan (1) ESRD (end stage renal disease): Status: Acute (2) ESRD (end stage renal disease) on dialysis: Status: Acute (3) Bright red rectal bleeding: Status: Acute Plan End-stage renal disease: Usually MWF schedule but missed her dialysis today due to rectal bleeding. Dialysis access: Left subclavian PermCath Electrolytes stable, euvolemic We will dialyze her tomorrow Continue home medications for hypertension and hyperphosphatemia Procedures Date of Service Date of Service: 05/15/25
[2025-05-15] MEDS: Lactated Ringers 1,000 ML 100 ML IVCONT (17:18)
--- NOTE | 2025-05-15 18:16 | PHA.MEDREC ---
Addendum entered by Mark Ramirez, [place] 05/15/25 18:22: reviewed Original Note: Pharmacy Consult ? Medication Reconciliation Pharmacy has completed the medication reconciliation. Patient may be non compliant only listed a Carvedilol 6.25 mg that they are currently taking. There is some past pharmacy history of atorvastatin 80 mg , 09/11/24 for 90 days, amlodipine 10 mg, 09/11/24 for 90 days, metoprolol tart 50 mg, 09/11/24 for 90 days, Omeprazole 20 mg 11/20/24 for 90 days and Sodium bicarb 650 mg 09/30/24 for 90 days its unclear if these were discontinued or patient just ran out of refills and stopped taking.
--- NOTE | 2025-05-15 19:27 | PC.NURSE ---
assumed care of pt, RBC running at 110, LR running at 100, pt sleeping. respirations even and unlabored.
[2025-05-16 03:06] VITALS: BP 184/91; PULSE 82; RESP 20; TEMP 36.9; O2SAT 98
[2025-05-16] MEDS: Lactated Ringers 1,000 ML 100 ML IVCONT (03:09)
[2025-05-16 03:34] VITALS: BP 164/90
[2025-05-16 08:16] LABS: Hematocrit 27.2 % (37.0-47.0); Hemoglobin 9.1 g/dl (12.0-16.0); Imm Gran Abs Auto 0.02 X10*3/uL (0.00-0.03); Imm Gran Pct Auto 0.5 % (0.0-0.4); Lymphocytes Absolute Auto 1.0 X10*3/uL (1.2-4.9); Mean Corpuscular HGB Conc 33.5 g/dl (31.0-35.0); Mean Corpuscular Hemoglobin 29.5 pg (27.0-33.0); Mean Corpuscular Volume 88.3 fL (80.0-98.0); NRBC Abs Auto 0.000 X10*3/uL (0.0-0.012); NRBC Pct Auto 0.0 /100WBC (0.0-0.2); Red Blood Count 3.08 X10*6/uL (4.20-5.50); White Blood Count 4.3 X10*3/uL (4.8-10.8)
[2025-05-16 08:20] LABS: Platelet Count 80 X10*3/uL (160-400)
[2025-05-16 08:34] LABS: MANUAL DIFF FLAG SCAN
[2025-05-16 08:51] LABS: Anion Gap 15 (12-20); Blood Urea Nitrogen 43 mg/dL (9-16); Calcium 8.0 mg/dL (8.4-10.2); Carbon Dioxide 18 mmol/L (22-29); Chloride 110 mmol/L (96-108); Creatinine Clr Calc Pharmacy 11.9; Estimated Glomerular Filt Rate 8; Potassium 4.0 mmol/L (3.3-5.1); Sodium 139 mmol/L (135-145)
--- NOTE | 2025-05-16 09:38 | PM.PNGS ---
Subjective Subjective Date of Service: 05/16/25 Interval history: Ongoing hemodialysis Says her bleeding per rectum has slowed down significantly Describes small amounts of blood last night Physical Exam Vital Signs: Vital Signs: Last Vital Signs Temp 98.4 F 05/16/25 03:06 Pulse 82 05/16/25 03:06 Resp 20 05/16/25 03:06 BP 164/90 H 05/16/25 03:34 Pulse Ox 98 05/16/25 03:06 O2 Del Method Room Air 05/16/25 03:06 BMI result Body Mass Index 30.2 Const: General: comfortable and no acute distress Resp: Effort & Inspection: normal respiratory effort Cardio: Rate: regular rate GI: Palpation (GI): Soft to palpation, not firm and nontender Objective Data Active Medications Acetaminophen (Acetaminophen 325 Mg Tablet) 650 mg PO Q6H PRN PRN Reason: Pain, Mild 1-3,fever,headache Last Admin: 05/16/25 03:43 Dose: 650 mg Documented By: DEE Carvedilol (Carvedilol 6.25 Mg Tablet) 6.25 mg PO BID [facility]; Protocol Last Admin: 05/15/25 20:43 Dose: 6.25 mg Documented By: DEE Lactated Ringer's (Lr) 1,000 mls @ 100 mls/hr IVCONT .Q10H [facility] Last Admin: 05/16/25 03:09 Dose: 100 mls/hr Documented By: DEE Magnesium Hydroxide (Milk Of Magnesia 30 Ml Oral.Susp) 30 ml PO DAILY PRN PRN Reason: Constipation Melatonin (Melatonin 3 Mg Tablet) 6 mg PO BEDTIME PRN PRN Reason: Insomnia Sodium Chloride (0.9 % Sodium Chloride Flush 3 Ml Syringe) 3 ml IVFLUSH QSHIFT [facility] Last Admin: 05/15/25 20:45 Dose: Not Given Documented By: DEE Non-Admin Reason: IV Running Labs 05/16/25 07:12 05/16/25 07:12 Labs: Laboratory Results - last 24 hr 05/15/25 05/15/25 05/16/25 10:19 15:21 07:12 MCV 90.5 88.3 MCH 28.2 29.5 MCHC 31.2 33.5 RDW 16.4 H 15.3 Plt Count 129 L 80 L D MPV 10.9 11.0 Immature Gran % (Auto) 0.3 0.5 H Neut % (Auto) 74.0 H 68.5 Lymph % (Auto) 17.4 L 23.8 [place] % (Auto) 6.5 4.6 Eos % (Auto) 1.5 2.1 Baso % (Auto) 0.3 0.5 Lymph # (Auto) 1.1 L 1.0 L [place] # (Auto) 0.4 0.2 Eos # (Auto) 0.1 0.1 Baso # (Auto) 0.0 0.0 Abs Immat Gran (auto) 0.02 0.02 Absolute Neuts (auto) 4.6 3.0 Absolute Nucleated RBC 0.000 0.000 Nucleated RBC % (auto) 0.0 0.0 Smear Tech's Comments VERIFIED Anion Gap 15 15 Estim Creat Clear Calc 7.3 11.9 Estimated GFR 5 8 Random Glucose 88 71 Calcium 8.1 L 8.0 L Magnesium 2.3 Total Bilirubin 0.3 AST 20 ALT 13 Alkaline Phosphatase 68 Total Protein 6.3 L Albumin 3.5 Urine Color Yellow Urine Appearance Clear Urine pH 8.0 Ur Specific [place] 1.015 Urine Protein 100 (2+) H Urine Glucose (UA) 100 H Urine Ketones Negative Urine Blood Moderate (2+) H Urine Nitrite Negative Ur Leukocyte Esterase Negative Urine RBC 0-2 Urine WBC 0-5 Ur Squamous Epith Cells 0-2 Urine Bacteria None Seen Hyaline Casts 0-2 Stool Occult Blood POSITIVE Blood Type A Positive Antibody Screen NEGATIVE Crossmatch (AHG) See Detail Procedures Date of Service Date of Service: 05/16/25 Progress Note: A&P Assessment and plan (1) Bright red rectal bleeding: Status: Acute Assessment and Plan: Had bleeding after embolization for hemorrhoids by IR Bleeding has improved significantly Transfused 2 units yesterday - appropriate increase in hemoglobin Ongoing dialysis Hold off on anticoagulation as much as possible Looks well overall Time Spent With Patient Time: Total time managing care of this patient today ____ minutes. Quality Stroke Does the patient have a stroke diagnosis?: No VTE Prior VTE?: No VTE Risk Level:: Medical - moderate - high VTE Device Contraindication: N/A - Device Ordered VTE Drug Contraindication: Treatment Not Indicated
[2025-05-16 10:14] VITALS: BP 159/76; PULSE 88; RESP 20; TEMP 36.2; O2SAT 99
[2025-05-16] MEDS: 0.9 % Sodium Chloride Flush 3 ML SYRINGE IVFLUSH ×2 (10:27→20:08)
--- NOTE | 2025-05-16 11:53 | P.PNIM_ITS ---
Subjective Subjective Date of Service: 05/16/25 Interval History: This history was taken in Indonesian from the patient. In HD today No abd pain Very minimal BRBPR Review of Systems Review of Systems: Yes all other systems are reviewed and are negative Physical Exam 2 Vital Signs: Vital Signs: Last Vital Signs Temp 97.2 F 05/16/25 10:14 Pulse 88 05/16/25 10:14 Resp 20 05/16/25 10:14 BP 159/76 H 05/16/25 10:14 Pulse Ox 99 05/16/25 10:14 O2 Del Method Room Air 05/16/25 10:14 BMI result Body Mass Index 30.2 Gen: in no acute distress HEENT: sclera anicteric, moist mucus membranes Neck: supple Lungs: clear to auscultation bilaterally Heart: regular rate and rhythm, no murmurs Abd: soft, non-tender, non-distended Ext: no edema Skin: warm/well-perfused Neuro: alert and oriented x3, no focal findings Psych: appropriate affect Objective Data Active Medications Acetaminophen (Acetaminophen 325 Mg Tablet) 650 mg PO Q6H PRN PRN Reason: Pain, Mild 1-3,fever,headache Last Admin: 05/16/25 03:43 Dose: 650 mg Documented By: DEE Carvedilol (Carvedilol 6.25 Mg Tablet) 6.25 mg PO BID [facility]; Protocol Last Admin: 05/16/25 10:26 Dose: 6.25 mg Documented By: MOLLY Lactated Ringer's (Lr) 1,000 mls @ 100 mls/hr IVCONT .Q10H [facility] Last Admin: 05/16/25 03:09 Dose: 100 mls/hr Documented By: DEE Magnesium Hydroxide (Milk Of Magnesia 30 Ml Oral.Susp) 30 ml PO DAILY PRN PRN Reason: Constipation Melatonin (Melatonin 3 Mg Tablet) 6 mg PO BEDTIME PRN PRN Reason: Insomnia Sodium Chloride (0.9 % Sodium Chloride Flush 3 Ml Syringe) 3 ml IVFLUSH QSHIFT [facility] Last Admin: 05/16/25 10:27 Dose: 3 ml Documented By: MOLLY Labs 05/16/25 07:12 05/16/25 07:12 Labs: Laboratory Results - last 24 hr 05/15/25 05/15/2505/16/25 10:19 15:21 07:12 MCV 88.3 MCH 29.5 MCHC 33.5 RDW 15.3 Plt Count 80 L D MPV 11.0 Immature Gran % (Auto) 0.5 H Neut % (Auto) 68.5 Lymph % (Auto) 23.8 [place] % (Auto) 4.6 Eos % (Auto) 2.1 Baso % (Auto) 0.5 Lymph # (Auto) 1.0 L [place] # (Auto) 0.2 Eos # (Auto) 0.1 Baso # (Auto) 0.0 Abs Immat Gran (auto) 0.02 Absolute Neuts (auto) 3.0 Absolute Nucleated RBC 0.000 Nucleated RBC % (auto) 0.0 Smear Tech's Comments VERIFIED Anion Gap 15 Estim Creat Clear Calc 11.9 Estimated GFR 8 Random Glucose 71 Calcium 8.0 L Urine Color Yellow Urine Appearance Clear Urine pH 8.0 Ur Specific [place] 1.015 Urine Protein 100 (2+) H Urine Glucose (UA) 100 H Urine Ketones Negative Urine Blood Moderate (2+) H Urine Nitrite Negative Ur Leukocyte Esterase Negative Urine RBC 0-2 Urine WBC 0-5 Ur Squamous Epith Cells 0-2 Urine Bacteria None Seen Hyaline Casts 0-2 Blood Type A Positive Antibody Screen NEGATIVE Crossmatch (AHG) See Detail Assessment and Plan (1) Bright red rectal bleeding: Status: Acute Assessment and Plan: d2, 59yo F with ESRD on HD, chronic HFrEF, chronic anemia s/p hemorrhoid artery embolization 05/14 presenting with BRBPR and found to have anemia acute blood loss anemia due to GI bleeding - 2 units pRBCs transfused with Hb going from 6.8 to 9.1 - although extravasation is seen on CT scan, IR does not feel that there is active bleeding requiring intervention - Gen Surg following ESRD on HD MWF - missed HD 05/15, getting HD 05/16 HTN chronic HFrEF - carvedilol VTE ppx - SCDs dispo - likely home tomorrow if H+H stable In my clinical judgment, the patient requires continued inpatient hospitalization for the following reasons: GI bleeding Total time managing care of this patient today: 35 minutes. Quality Stroke Does the patient have a stroke diagnosis?: No VTE Prior VTE?: No VTE Risk Level:: Medical - moderate - high VTE Device Contraindication: N/A - Device Ordered VTE Drug Contraindication: Treatment Not Indicated
[2025-05-16 15:05] VITALS: BP 177/81; PULSE 81; RESP 16; TEMP 36.5; O2SAT 98
--- NOTE | 2025-05-16 16:32 | MHC.CM.PN ---
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
[2025-05-16 19:57] VITALS: BP 158/86; PULSE 87; RESP 16; TEMP 36.4; O2SAT 96
[2025-05-16 23:52] VITALS: BP 167/80; PULSE 77; RESP 16; TEMP 36.7; O2SAT 100
[2025-05-17 04:00] VITALS: BP 138/67; PULSE 78; RESP 16; TEMP 36.1; O2SAT 98
[2025-05-17 07:14] LABS: Hematocrit 26.2 % (37.0-47.0); Hemoglobin 8.7 g/dl (12.0-16.0); Mean Corpuscular HGB Conc 33.2 g/dl (31.0-35.0); Mean Corpuscular Hemoglobin 29.0 pg (27.0-33.0); Mean Corpuscular Volume 87.3 fL (80.0-98.0); NRBC Abs Auto 0.000 X10*3/uL (0.0-0.012); NRBC Pct Auto 0.0 /100WBC (0.0-0.2); Red Blood Count 3.00 X10*6/uL (4.20-5.50); White Blood Count 5.9 X10*3/uL (4.8-10.8)
[2025-05-17 07:20] LABS: Platelet Count 94 X10*3/uL (160-400)
--- NOTE | 2025-05-17 07:20 | P.PNIM_ITS ---
Subjective Subjective Date of Service: 05/17/25 Physical Exam 2 Vital Signs: Vital Signs: Last Vital Signs Temp 97.0 F 05/17/25 04:00 Pulse 78 05/17/25 04:00 Resp 16 05/17/25 04:00 BP 138/67 05/17/25 04:00 Pulse Ox 98 05/17/25 04:00 O2 Del Method Room Air 05/17/25 04:00 BMI result Body Mass Index 30.2 Objective Data Active Medications Acetaminophen (Acetaminophen 325 Mg Tablet) 650 mg PO Q6H PRN PRN Reason: Pain, Mild 1-3,fever,headache Last Admin: 05/16/25 03:43 Dose: 650 mg Documented By: DEE Carvedilol (Carvedilol 6.25 Mg Tablet) 6.25 mg PO BID [facility]; Protocol Last Admin: 05/16/25 20:08 Dose: 6.25 mg Documented By: ESTRELLA Magnesium Hydroxide (Milk Of Magnesia 30 Ml Oral.Susp) 30 ml PO DAILY PRN PRN Reason: Constipation Melatonin (Melatonin 3 Mg Tablet) 6 mg PO BEDTIME PRN PRN Reason: Insomnia Sodium Chloride (0.9 % Sodium Chloride Flush 3 Ml Syringe) 3 ml IVFLUSH QSHIFT [facility] Last Admin: 05/16/25 20:08 Dose: 3 ml Documented By: ESTRELLA Labs 05/16/25 07:12 05/16/25 07:12 Labs: Laboratory Results - last 24 hr 05/16/25 07:12 MCV 88.3 MCH 29.5 MCHC 33.5 RDW 15.3 Plt Count 80 L D MPV 11.0 Immature Gran % (Auto) 0.5 H Neut % (Auto) 68.5 Lymph % (Auto) 23.8 [place] % (Auto) 4.6 Eos % (Auto) 2.1 Baso % (Auto) 0.5 Lymph # (Auto) 1.0 L [place] # (Auto) 0.2 Eos # (Auto) 0.1 Baso # (Auto) 0.0 Abs Immat Gran (auto) 0.02 Absolute Neuts (auto) 3.0 Absolute Nucleated RBC 0.000 Nucleated RBC % (auto) 0.0 Smear Tech's Comments VERIFIED Anion Gap 15 Estim Creat Clear Calc 11.9 Estimated GFR 8 Random Glucose 71 Calcium 8.0 L Quality Stroke Does the patient have a stroke diagnosis?: No VTE Prior VTE?: No VTE Risk Level:: Medical - moderate - high VTE Device Contraindication: N/A - Device Ordered VTE Drug Contraindication: Treatment Not Indicated
[2025-05-17 07:33] LABS: Anion Gap 17 (12-20); Blood Urea Nitrogen 36 mg/dL (9-16); Calcium 7.8 mg/dL (8.4-10.2); Carbon Dioxide 17 mmol/L (22-29); Chloride 108 mmol/L (96-108); Creatinine Clr Calc Pharmacy 11.5; Estimated Glomerular Filt Rate 8; Potassium 4.3 mmol/L (3.3-5.1); Sodium 138 mmol/L (135-145)
[2025-05-17 07:56] VITALS: BP 141/66; PULSE 88; RESP 18; TEMP 36.4; O2SAT 99
[2025-05-17] MEDS: 0.9 % Sodium Chloride Flush 3 ML SYRINGE IVFLUSH (08:58)
--- NOTE | 2025-05-17 10:21 | P.PNGS_ITS ---
Subjective Subjective Date of Service: 05/17/25 Interval history: States she feels well Denies anal pain Had some blood yesterday with BMs but she says that this has significantly decreased Physical Exam 2 Vital Signs: Vital Signs: Last Vital Signs Temp 97.5 F 05/17/25 07:56 Pulse 88 05/17/25 07:56 Resp 18 05/17/25 07:56 BP 141/66 H 05/17/25 07:56 Pulse Ox 99 05/17/25 07:56 O2 Del Method Room Air 05/17/25 07:56 BMI result Body Mass Index 30.2 Const: General: comfortable and no acute distress Resp: Effort & Inspection: normal respiratory effort Cardio: Rate: regular rate GI: Palpation (GI): Soft to palpation, not firm and nontender Objective Data Active Medications Acetaminophen (Acetaminophen 325 Mg Tablet) 650 mg PO Q6H PRN PRN Reason: Pain, Mild 1-3,fever,headache Last Admin: 05/16/25 03:43 Dose: 650 mg Documented By: DEE Carvedilol (Carvedilol 6.25 Mg Tablet) 6.25 mg PO BID [facility]; Protocol Last Admin: 05/17/25 08:57 Dose: 6.25 mg Documented By: AMINATA Magnesium Hydroxide (Milk Of Magnesia 30 Ml Oral.Susp) 30 ml PO DAILY PRN PRN Reason: Constipation Melatonin (Melatonin 3 Mg Tablet) 6 mg PO BEDTIME PRN PRN Reason: Insomnia Sodium Chloride (0.9 % Sodium Chloride Flush 3 Ml Syringe) [facility] Last Admin: 05/17/25 08:58 Dose: 3 ml Documented By: AMINATA Labs 05/17/25 06:47 05/17/25 06:47 Labs: Laboratory Results - last 24 hr 05/17/25 06:47 MCV 87.3 MCH 29.0 MCHC 33.2 RDW 14.8 Plt Count 94 L MPV 11.4 Absolute Nucleated RBC 0.000 Nucleated RBC % (auto) 0.0 Anion Gap 17 Estim Creat Clear Calc 11.5 Estimated GFR 8 Random Glucose 79 Calcium 7.8 L Procedures Date of Service Date of Service: 05/17/25 Progress Note: A&P Assessment and plan (1) Bright red rectal bleeding: Status: Acute Assessment and Plan: Admitted for bleeding after hemorrhoid embolization by IR Bleeding has decreased significantly Hemoglobin at baseline after transfusion Appears to be doing well Diet as tolerated Time Spent With Patient Time: Total time managing care of this patient today ____ minutes. Quality Stroke Does the patient have a stroke diagnosis?: No VTE Prior VTE?: No VTE Risk Level:: Medical - moderate - high VTE Device Contraindication: N/A - Device Ordered VTE Drug Contraindication: Treatment Not Indicated
--- NOTE | 2025-05-17 10:38 | P.DS_ITS ---
DS: Providers Provider Date of Service: 05/17/25 Date of admission: 05/15/25 16:03 Date of discharge: 05/17/25 Primary care physician: Britt De MD Consults: 05/15/25 16:07 Consult to Nephrology Routine Consulting Provider[place] [facility] Reason for consultation: ESRD on HD, missed HD today Has provider been notified: No 05/15/25 16:10 Consult to General Surgery Routine Consulting Provider[place] [facility] [place] [facility] Reason for consultation: gi bleeding Has provider been notified: Yes DS: Diagnosis Discharge Diagnosis (1) Bright red rectal bleeding: Status: Acute DS: Summary Hospital Course Hospital Course: # acute blood loss anemia- LGIB secondary to hemorrhoidal artery bleeding s/p IR embolization-resolved Pt is a 59-year-old female with a PMH significant for?ESRD on HD M/W/F, HTN, HFrEF (LVEF 40-45% on 11/2023), chronic iron deficiency anemia, and hx of noncompliance with medications or follow up appointments who presented to the ED with acute BRBPR 2/2 hemorrhoid artery bleed. Patient apparently appears to have recurrent bleeding diathesis requiring admission. Pt underwent GI and IR consult and underwent embolization 05/14 and required 2 U transfusion POA during this admisinstration with good response. Pt's Hb at the time of discharge was 8.7. She is at high risk of readmission. Son updated at bedside via Phone Patient to follow up outpatient with GI Patient to follow-up with PCP and recheck hemoglobin or advised to come back to the ED if she notices any new bleed. 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 Nephrology consulted. Patient to undergo hemodialysis per her schedule. HTN Continue home meds Patient is primarily Jzbmtmj-[id number] her son as the primary angle bender with her permission patient aware of the risks of using a personal family member as a angle bender. Time spent discussing smoking cessation with patient: more than 10 minutes Time Attestation Discharge Coordination Time (in mins): 35 Quality: Safe Use of Opioids Does Pt have an Active Cancer Diagnosis on the Problem List?: No Quality: Stroke Does the patient have a stroke diagnosis?: No Physical Exam Exam: Exam: General: AOx3, pale Resp: CTA bilaterally CVS: S1, S2, RRR GI: +BS, NT, no distention Skin: Warm, dry Vital Signs: Vital Signs: Last Vital Signs Temp 97.5 F 05/17/25 07:56 Pulse 88 05/17/25 07:56 Resp 18 05/17/25 07:56 BP 141/66 H 05/17/25 07:56 Pulse Ox 99 05/17/25 07:56 O2 Del Method Room Air 05/17/25 07:56 BMI result Body Mass Index 30.2 DS: Data Data Completed and Pending Completed studies during hospitalization [Text1]: Procedures Excision of Duodenum, Via Natural or Artificial Opening Endoscopic, Diagnostic (11/09/23) Excision of Esophagogastric Junction, Via Natural or Artificial Opening Endosc opic, Diagnostic (11/09/23) Excision of Sigmoid Colon, Via Natural or Artificial Opening Endoscopic, Diagnostic (09/06/24) Excision of Transverse Colon, Via Natural or Artificial Opening Endoscopic, D iagnostic (09/06/24) Fluoroscopy of Superior Vena Cava, Guidance (11/15/24) Insertion of Infusion Device into Superior Vena Cava, Percutaneous Approach (11/15/24) Insertion of Infusion Device into Upper Vein, Percutaneous Approach (09/14/24) Insertion of Tunneled Vascular Access Device into Chest Subcutaneous Tissue and Fascia, Percutaneous Approach (11/15/24) Inspection of Lower Intestinal Tract, Via Natural or Artificial Opening Endoscopic (04/19/25) Inspection of Upper Intestinal Tract, Via Natural or Artificial Opening Endoscopic (09/06/24) Performance of Urinary Filtration, Intermittent, Less than 6 Hours Per Day (04/19/25) Transfusion of Nonautologous Red Blood Cells into Peripheral Vein, Percutaneous Approach (04/19/25) Labs on day of discharge: Laboratory Results - last 24 hr 05/17/25 06:47 WBC 5.9 RBC 3.00 L Hgb 8.7 L Hct 26.2 L MCV 87.3 MCH 29.0 MCHC 33.2 RDW 14.8 Plt Count 94 L MPV 11.4 Absolute Nucleated RBC 0.000 Nucleated RBC % (auto) 0.0 Sodium 138 Potassium 4.3 Chloride 108 Carbon Dioxide 17 L Anion Gap 17 BUN 36 H Creatinine 5.57 H* Estim Creat Clear Calc 11.5 Estimated GFR 8 Random Glucose 79 Calcium 7.8 L Discharge Plan Discharge Anticipated Discharge Date/Time: 05/17/25 10:35 Patient Disposition: Home, Self-Care Discharge Diagnosis: BRBPR 2/2 hemorroid artery bleed S/P IR embolization Referrals: Britt Chavez MD [Primary Care Provider, Internal Medicine] - 1 Week Discharge Medications: Continued (DME) blood pressure monitor Kit See Rx Instructions .Route Qty: 1 0RF Rx Instructions: As directed (DME) recliner See Rx Instructions .Route .MEDSUPPLY Qty: 1 0RF Rx Instructions: As directed carvedilol 6.25 mg tablet 6.25 mg PO BID Qty: 180 11RF (DME) sitz bath Kit See Rx Instructions .Route Qty: 1 0RF Rx Instructions: As directed (DME) sitz bath Kit See Rx Instructions .Route Qty: 1 0RF Rx Instructions: As directed (DME) bed rail See Rx Instructions .Route .MEDSUPPLY Qty: 1 0RF Rx Instructions: As directed (DME) hand held shower See Rx Instructions .Route .MEDSUPPLY Qty: 1 0RF Rx Instructions: As directed (DME) Grab bar Misc See Rx Instructions .Route Qty: 1 0RF Rx Instructions: As directed (DME) pill box twice daily See Rx Instructions .Route .MEDSUPPLY Qty: 1 0RF Rx Instructions: As directed (DME) Shower Chair Misc See Rx Instructions .Route Qty: 1 0RF Rx Instructions: with back Discharge Orders: Discharge Order (Routine); Ordered 05/17/25 Ordered By: Cinda Sierra Diet: Low salt diet Activity on Discharge: As tolerated Stand Alone Forms: Patient Portal Discharge page Print Language: Sri Lankan Care Plan Goals: Maintain Hb F/up with PCP in 1 week Health Concerns: Maintain Hb F/up with PCP in 1 week Plan of Treatment: Maintain Hb F/up with PCP in 1 week Assessment: Maintain Hb F/up with PCP in 1 week
--- NOTE | 2025-05-17 11:10 | MHC.CM.PN ---
PT CLEARED TO DC HOME TODAY WITH [employer] FAMILY TO TRANSPORT
[2025-05-17 11:53] VITALS: BP 146/68; PULSE 88; RESP 18; TEMP 36.6; O2SAT 98
== END 2025-05-17 12:11 | disposition home or self-care (01) | DRG 811 ==
LOC: HO.ED 15:44 → HO.EDOVER 16:07 → HO.IMC 19:18
PROVIDERS: Family Medicine; Physician Assistant; Admitting Provider Physician Assistant Medical; Emergency Provider Emergency Medicine; PCP Internal Medicine; Visit Provider Student in an Organized Health Care Education/Training Program
DX: D62 Acute posthemorrhagic anemia (principal); N18.6 End stage renal disease; I13.2 Hypertensive heart and chronic kidney disease with heart failure and with stage 5 chronic kidney disease, or end stage renal disease; I42.9 Cardiomyopathy, unspecified; I50.22 Chronic systolic (congestive) heart failure; K64.9 Unspecified hemorrhoids; D63.1 Anemia in chronic kidney disease; Z99.2 Dependence on renal dialysis; Z91.158 Patient's noncompliance with renal dialysis for other reason; Z87.891 Personal history of nicotine dependence
CPT/HCPCS: 36415; 74178; 80048; 80053; 81001; 82272; 83735; 85025; 85027; 86850; 86900; 86901; 86902; 86920; 86922; 90999; 99285; J7120; P9016; Q9967

== ENCOUNTER → 2025-05-15 10:15 | Outpatient (BNV) | payer OTHER, SELFPAY | PROVIDERS: Emergency Provider Emergency Medicine; PCP Internal Medicine; Visit Provider Radiology Diagnostic Radiology | DX: K62.5 Hemorrhage of anus and rectum (principal); I72.2 Aneurysm of renal artery | CPT/HCPCS: 74178 ==

== ENCOUNTER → 2025-05-15 16:03 | Outpatient (BNV) | payer OTHER, SELFPAY | PROVIDERS: Admitting Provider Physician Assistant Medical; Emergency Provider Emergency Medicine; PCP Internal Medicine; Visit Provider Physician Assistant Medical | DX: K62.5 Hemorrhage of anus and rectum (principal) | CPT/HCPCS: 99223; 99232; 99239 ==

== ENCOUNTER → 2025-05-15 16:03 | Outpatient (BNV) | payer OTHER, SELFPAY | PROVIDERS: Admitting Provider Physician Assistant Medical; Emergency Provider Emergency Medicine; PCP Internal Medicine; Visit Provider Internal Medicine Critical Care Medicine | DX: N18.6 End stage renal disease (principal); Z99.2 Dependence on renal dialysis; K62.5 Hemorrhage of anus and rectum | CPT/HCPCS: 99222 ==

== ENCOUNTER → 2025-05-15 16:03 | Outpatient (BNV) | payer OTHER, SELFPAY | PROVIDERS: Admitting Provider Physician Assistant Medical; Emergency Provider Emergency Medicine; PCP Internal Medicine; Visit Provider Surgery | DX: K62.5 Hemorrhage of anus and rectum (principal) | CPT/HCPCS: 99222; 99231; 99232 ==

== ENCOUNTER 2025-05-20 11:08 | Outpatient (REF) | payer OTHER, SELFPAY ==
[2025-05-20 11:19] LABS: MANUAL DIFF FLAG NO
[2025-05-20 12:11] LABS: Hematocrit 27.4 % (37.0-47.0); Hemoglobin 9.1 g/dl (12.0-16.0); Imm Gran Abs Auto 0.03 X10*3/uL (0.00-0.03); Imm Gran Pct Auto 0.5 % (0.0-0.4); Lymphocytes Absolute Auto 1.1 X10*3/uL (1.2-4.9); Mean Corpuscular HGB Conc 33.2 g/dl (31.0-35.0); Mean Corpuscular Hemoglobin 29.6 pg (27.0-33.0); Mean Corpuscular Volume 89.3 fL (80.0-98.0); NRBC Abs Auto 0.000 X10*3/uL (0.0-0.012); NRBC Pct Auto 0.0 /100WBC (0.0-0.2); Platelet Count 132 X10*3/uL (160-400); Red Blood Count 3.07 X10*6/uL (4.20-5.50); White Blood Count 5.5 X10*3/uL (4.8-10.8)
--- OUTSIDE RECORDS SUMMARY | 2025-05-20 14:23 | XMS_ITS | Clinical Summary ---
Author Organization [facility], Address [address] [place] [place] [address] Phone Care Team Providers Care Handle Lathe Operator Name Role Phone Mary Garcia LISA Primary Care Provider [phone] Allergies Active Allergy Reactions Criticality Noted Date [...] in the evening. Active ergocalciferol 1.25 MG (43131 UT) capsule Take 1 capsule by mouth [...] Encounters Date Type Department Care Team Description 05/18/2025 Telephone [facility] [address] [address] Love Larry 05/06/2025 Orders Only [facility] [address] [address] Tima Salas MD 05/01/2025 Telephone [facility] [address] [place] [address] [place] [address] Viv Aguilera 04/22/2025 Telephone [facility] [address] [place] [address] [place] [address] Nanci Chowdary 04/08/2025 Orders Only [facility] [address] [address] Tima Salas MD 04/07/2025 2:00 PM EDT Office Visit [facility] [address] [place] [address] Fredo Walsh MD End stage renal disease (HCC) (Primary Dx) 04/07/2025 Documentation Only [facility] [address] [place] [address] Delilah Alanis 04/03/2025 Telephone [facility] [address] [place] [address] Yessica Munoz 04/03/2025 Telephone [facility] [address] [place] [address] Yessica Munoz 03/18/2025 Orders Only [facility] [address] [address] Tima Salas MD 03/12/2025 8:45 AM EDT Office Visit [facility], - [facility] [address] [place] [phone] Fredo Walsh MD End stage renal disease (HCC) (Primary Dx) 03/10/2025 Telephone [facility], [facility] [address] [place] [address] [place] [address] AguileraViv 03/04/2025 Orders Only [facility] [address] [place] [phone] Tima Salas MD from Last 3 Months [...] 05/08/2025 Unless otherwise specified, test(s) performed at: [facility], [address] [place], [place] [id number] TALENT ACQUISITION SPECIALIST: Latrell Pollack M.D. For any questions, please call customer service at FREQUENCY:OTHER Resulting Agency Comment Specimen source: Plasma Tima Salas MD LAB BLOOD ORDERABLES Final Re sult Performing Organization Address [facility] de Phone Number [facility] See order comments or contact performing lab Unknown, [place] * (ABNORMAL) POST CHEMISTRY (05/06/2025) Only the most recent of3 resultswithin the time period is included. BUN Post Dialysis 49(H) 6 - 19 mg/dL [facility] 05/06/2025 05/07/2025 12: 27 PM EDT Narrative [facility]RAE - 05/07/2025 Unless otherwise specified, test(s) performed at: [facility], [address] [place], [place] [id number] TALENT ACQUISITION SPECIALIST: Latrell Pollack M.D. For any questions, please call customer service at FREQUENCY:OTHER Resulting Agency Comment Specimen source: Plasma Tima Salas MD LAB BLOOD ORDERABLES Final Re sult Performing Organization Address [facility] de Phone Number [facility] See order comments or contact performing lab Unknown, [place] * (ABNORMAL) Spectrae Chemistry (05/06/2025) Only the most recent of7 resultswithin the time period is included. BUN 94(H) 6 - 19 mg/dL [facility] 05/06/2025 05/07/2025 12: 22 PM EDT Narrative [facility]E - 05/08/2025 Unless otherwise specified, test(s) performed at: [facility], [address] [place] [id number] TALENT ACQUISITION SPECIALIST: Latrell Pollack M.D. For any questions, please call customer service at FREQUENCY:OTHER Resulting Agency Comment Specimen source: Serum Tima Salas MD LAB BLOOD ORDERABLES Final Re sult Performing Organization Address [facility] de Phone Number [facility] See order comments or contact performing lab Unknown, [place] * (ABNORMAL) THYROIDS (03/18/2025) Only the most recent of2 resultswithin the time period is included. TSH 3.761(H) 0.300 - 3.000 mIU/L [facility] Comment: The reference range of 0.300-3.000 mIU/L is recommended by the [place] Association of Clinical Endocrinologists (AACE). An ESRD [...] ORDERABLES Final Re sult Performing Organization Address [facility] de Phone Number [facility] See order comments or contact performing lab Unknown, [place] * IMMUNO CHEMISTRY (03/18/2025) Hep B Surface Ag Negative Negative [facility] Hepatitis B Surface Ab 25 mIU/mL [facility] Comment: The anti-HBs (Hepatitis B surface [...] BLOOD ORDERABLES Edited R esult - Final [facility] See order comments or contact performing lab [...] 03/19/2025 Unless otherwise specified, test(s) performed at: [facility], [address] [place] [id number] TALENT ACQUISITION SPECIALIST: Latrell Pollack M.D. For any questions, please call customer service at FREQUENCY:MONTHLY Resulting Agency Comment Specimen source: Blood Tima Salas MD LAB BLOOD ORDERABLES Final Re sult Performing Organization Address City/[facility]/ZIP Co de Phone Number [facility] See order comments or contact performing lab Unknown, [place] from Last 3 Months Insurance [facility] [place] [id number] Medicaid [place] [facility] Dual SNP ([id number]) [place] [id number] Care Teams Handle Lathe Operator Relationship Specialty Start Date End Date Mary Garcia FNP [address] [place] [address] PCP - General 06/19/22
--- OUTSIDE RECORDS SUMMARY | 2025-05-20 14:23 | XMS_ITS ---
Author Organization [facility] Address [address] [place] [address] Care Team Providers Care Eastern Philosophy Professor Name Role Phone Emanuel Scruggs Primary Care Provider [phone] Transplant Episode Kidney Candidate [facility] ([place], [place]) - [facility] Evaluation began on 09/01/2024 Marked as Active on 09/01/2024 Kidney CoordinatorKimber Fallon RN Fax: N/A Email: N/A Scores Score Value Updated Exceptions/Reas ons CPRA Not available EPTS (Calc) 28 05/20/2025 [place] Organ Diagnosis Organ Primary Contributory Kidney Hypertensive Nephrosclerosis Care Team Name Role Phone Fax Email Kimber Fallon RN Kidney Coordinator [phone] N/A N/A Danis Betancur Referring Physician [phone] N/A Events Pre-Transplant Referred: 07/07/2024 Evaluation began: 09/01/2024 Dialysis History Dialysis History Start End Type Comments Center 11/24/2024 In-center Hemodialysis M W F BIBI C [facility] Dialysis Center Information Center Phone Fax Address [facility] [phone] [address] [facility] [address]
--- OUTSIDE RECORDS SUMMARY | 2025-05-20 14:23 | XMS_ITS | Clinical Summary ---
Author Organization [address] [place] [address] Address [address] [place] [address] Phone Care Team Providers Care Biometrics Consultant Name Role Phone Rebecca Ferraro MD Primary [...] patient's age to complete this topic Insurance [facility] Member Subscriber Plan / Payer ( fective 2024-2098) Name:Anh Kitchen Relation to Subscriber:Self Name:Imtiaz Anh Payer ID:[id number] Group ID:Not on file Type:Not on file Address: [address] [address] MEDICA[place] Care Teams Biometrics Consultant Relationship Specialty Start Date End Date Rebecca Ferraro MD [address] [place] [phone] PCP - General Internal Medicine 04/17/22
--- OUTSIDE RECORDS SUMMARY | 2025-05-20 14:23 | XMS_ITS | Encounter Summary ---
Author Organization [employer] Address [address] [place] [address] Care Team Providers Care Ceramic Tile Mechanic Name Role Phone Rebecca Ferraro MD Primary Care Prov ider Encounter Details Date Type Department Care Team (Late st Contact Info) Description 01/07/2025 Lab Requisition [facility] - Main Lab [address] [facility] [place] [address] Danis Betancur MD [address] [facility] [address] [place] [address] Anemia in other chronic diseases [...] LAB HEMETOLOGY METHOD 01/07/2025 9:02 AM EDT [facility] Blood Venous blood specimen / Unknown 01/07/2025 7:20 AM EDT 01/07/2025 8:44 AM EDT us Danis Betancur MD LAB BLOOD ORDERABLES Final Resul t [facility] H[facility] LAB [address] [place] [address], documented in this encounter Visit Diagnoses Diagnosis Anemia in other chronic diseases classified elsewhere documented in this encounter Care Teams Ceramic Tile Mechanic Relationship Specialty Start Date End Date Rebecca Ferraro MD [address] [place] [phone] PCP - General Internal Medicine 04/17/22 documented as of this encounter
--- OUTSIDE RECORDS SUMMARY | 2025-05-20 14:23 | XMS_ITS | Encounter Summary ---
Author Organization [facility], Address [address] [place] [address] Phone Care Team Providers Care Costuming Supervisor Name Role Phone Mary Garcia LISA Primary Care Provider [phone] Encounter Details Date Type Department Care Team (Late st Contact Info) Description 05/18/2025 Telephone [facility] - Vascular Access Center [address] [place] [phone] Love Larry [address] [place] [id number] Social History Tobacco Use Types Packs/Day Years [...] encounter Miscellaneous Notes * Telephone Encounter - Love Larry - 05/18/2025 11:19 AM EDT OFFICE VISIT REMINDER COMMUNICATION Left message on answering machine to confirm office appointment scheduled on 05/19/25. Also requested call back to complete the following Covid screening: YES NO COMMENTS Do you have or have you had COVID or coronavirus? [] [] Have you been exposed to COVID or coronavirus? [] [] Do you live with anyone with COVID or who has been exposed? [] [] Have you had any COVID symptoms in the past month such as fever, chills, cough, sore throat, shortness of breath or any other cold/fu symptoms? [] [] Have you been hospitalized in the past 2 weeks? [] [] Do you reside in a facility? [] [] documented in this encounter Plan of Treatment Not on file documented as of this encounter Visit Diagnoses Not on filedocumented in this encounter Care Teams Costuming Supervisor Relationship Specialty Start Date End Date Mary Garcia FNP [address] [facility] [address] [place] [id number] PCP - General 06/19/22 documented as of this encounter
--- OUTSIDE RECORDS SUMMARY | 2025-05-20 14:23 | XMS_ITS | Clinical Summary ---
Author Organization [facility] Address [address] [place] [address] Care Team Providers Care Brass Instrument Repair Technician Name Role Phone Emanuel Scruggs Primary Care Provider [phone] Allergies Active Allergy Reactions Criticality Noted Date [...] Team Description 04/16/2025 2:30 PM EDT Follow-Up [facility] Liver Transplant Services [address] [place] [address] Natasha oLtt MD Abdominal wall hernia (Primary Dx); ESRD (end stage renal disease) (HCC); Hemodialysis patient (HCC); Hyperparathyroidism, secondary renal (HCC) 04/16/2025 Documentation [facility] Transplant Department [address] [place] [address] Kimber Fallon, RN Kidney Eval 03/10/2025 Telephone [facility] Transplant Department [address] [place] [address] Kimber Fallon, RN 03/03/2025 Telephone [facility] Transplant Department [address] [place] [address] Kimber Fallon, RN from Last 3 Months [...] Info) Description 08/19/2025 1:40 PM EST Follow-Up [facility] Renal Transplant [address] [place] [address] Tito Patricio MD [address] [place], [place] [phone] Devante Juarez MD [address] [place], [place] [phone] 08/19/2025 2:00 PM EST Social Work [facility] Renal Transplant [address] [place] [address] Tito Patricio MD [address] [place], [place] [phone] Thomas Freeman Health Maintenance Due Date Last [...] Completed 09/01/2024 Procedures * Due to [place] [employer] law, this organization might not be sharing [...] Health Maintenance Results * Due to [place] [employer] law, this organization might not be sharing [...] - 3.90 10*3/uL 09/01/2024 3:19 PM EST [facility] Monocyte # 0.30 0.20 - 0.95 10*3/uL 09/01/2024 3:19 PM EST [facility] Eosinophil # 0.10 0.02 - 0.50 10*3/uL 09/01/2024 3:19 PM EST [facility] Basophil # <0.03 0.00 - 0.20 10*3/uL 09/01/2024 3:19 PM EST [facility] nRBC % 0.0 /100 WBCs 09/01/2024 3:19 PM EST [facility] nRBC # <0.01 <0.01 10*3/uL 09/01/2024 3:19 PM EST [facility] Blood Structure of peripheral vein / Unknown Venipuncture / Unknown 09/01/2024 2:46 PM EST 09/01/2024 3:10 PM EST us Tito Patricio MD LAB BLOOD ORDERABLES Final Resu lt [facility] [facility] [address] [place] [address], * Hepatitis C Antibody w/Reflex to PCR (09/01/2024 2:46 PM EST) Hepatitis C Antibody NON-REACT JILL NON-REACT JILL 09/02/2024 7:23 AM EST [email or web address] [facility] Comment: HCV antibody was non-reactive. There is no laboratory evidence of HCV infection. In most cases, no further action is required. However, if recent HCV exposure is suspected, a test for HCV RNA (test code 83372) is suggested. For additional information please refer to http://education.Tripology/faq/MFY94i8 (This link is being provided for informational/ educational purposes only.) Blood Structure of peripheral vein / Unknown Venipuncture / Unknown 09/01/2024 2:46 PM EST 09/01/2024 3:07 PM EST Narrative [facility] - 09/02/2024 7:23 AM EST [facility] Received Date:[id number] us Tito Patricio MD LAB BLOOD ORDERABLES Final Resu lt Performing Organization Address City/[facility]/ZIP Co de Phone Number [facility] [address] [facility] [address], [place] [address], [place] [phone] [employer] [facility] [address] [facility] [address], [place] [address], [place] [phone] * (ABNORMAL) Phosphorus (09/01/2024 2:46 PM EST) Phosphorus 8.2(H) 2.5 - 4.5 mg/dL 09/01/2024 3:52 PM EST [facility] Blood Structure of peripheral vein / Unknown Venipuncture / Unknown 09/01/2024 2:46 PM EST 09/01/2024 3:10 PM EST us Tito Patricio MD LAB BLOOD ORDERABLES Final Resu lt Performing Organization Address City/[facility]/ZIP Co de Phone Number [facility] [address] [place] [address], * (ABNORMAL) PTH, Intact (without Calcium) (09/01/2024 2:46 PM EST) Parathyroid Hormone, Intact 1488(H) 16 - 77 pg/mL 09/03/2024 7:22 AM EST [employer] [facility] Comment: Interpretive Guide Intact PTH Calcium [...] LAB BLOOD ORDERABLES Final Resu lt [facility] [address] [facility] [address], [place] [address], [place] [phone] [facility] [address] [facility] [address], [place] [address], [place] [phone] from Last 3 Months or Most Recently Relevant to Health Maintenance Insurance [facility] Care Teams Brass Instrument Repair Technician Relationship Specialty Start Date End Date Emanuel Scruggs [address] [place] [address] PCP - General 03/22/17
== END 2025-05-20 11:09 | disposition home or self-care (01) ==
LOC: HO.LAB 11:08
PROVIDERS: PCP Internal Medicine; Visit Provider Student in an Organized Health Care Education/Training Program
DX: D64.9 Anemia, unspecified (principal)
CPT/HCPCS: 36415; 85025

== ENCOUNTER 2025-05-26 09:24 | Outpatient (AMB) | payer OTHER, SELFPAY ==
[2025-05-26 09:29] VITALS: BP 144/90; PULSE 83; TEMP 36.2; O2SAT 97; BMI 29.3
--- NOTE | 2025-05-26 09:29 | A.OFFPC_ITS ---
Vital Signs 05/26/25 09:29 Height 5 ft 5 in Weight 176 lb 2 oz BMI 29.3 BP 144/90 H Blood Pressure Location Rt brachial Position Sitting Pulse 83 Pulse Source Pulse Oximeter Temp 97.1 F Temp Source Temporal Artery Scan Pulse Oximetry (%) 97 Oxygen Delivery Method Room Air Intake Visit Reasons: [facility] 05/17 heavy bleeding after hemorrhoid procedure Accompanied by: Daughter Allergies Penicillins Allergy (Intermediate, Verified 05/26/25 09:33) RASH Tobacco use date assessed: 05/26/25 Dental Screening Dental Screen Date: 05/26/25 Did you have a dental visit in the last 12 months?: No Did you have a dental problem in the last 6 months where you did not have access to dental care?: No Was dental information given to patient?: Patient has dentist HPI HPI Comments History of Present Illness Details The patient is a 59-year-old female presenting for TCM after recent hospitalization for hemorrhoidal bleeding. She was hospitalized from the to the May due to significant bleeding following hemorrhoid surgery. The patient reports that every time she uses the bathroom, she experiences blood loss, although the amount has decreased since the surgery. There is no associated pain reported with the bleeding, and she is scheduled for a follow-up with the surgical team on June 04. A blood test was conducted on the , and another is planned before her surgical follow-up to monitor her condition. The patient is also undergoing dialysis treatment, which is performed at a dialysis center where blood tests are routinely conducted. She is on the kidney transplant list, necessitating regular cardiac evaluations to ensure her heart health is maintained. D of admission: 05/15/2025 D of Discharge: 05/17/2025. [facility] Medical History ESRD (end stage renal disease) on dialysis Cardiomyopathy Noncompliance of patient with renal dialysis ESRD (end stage renal disease) on dialysis Back pain Asthma History of blood transfusion NSTEMI (non-ST elevated myocardial infarction) Atrial fibrillation Acute on chronic kidney failure Secondary hyperparathyroidism (of renal origin) Anemia in chronic kidney disease (CKD) Chronic systolic (congestive) heart failure CKD (chronic kidney disease) stage 5, GFR less than 15 ml/min Essential hypertension Normocytic anemia Surgical History History of esophagogastroduodenoscopy (EGD) Hx of colonoscopy History of surgery Status post dilation and curettage History of abdominal surgery History of extraction of renal calculus History of tubal ligation Family History Father Throat cancer Mother Hypertension Daughter In good health Daughter In good health Sister In good health Family/Other Breast cancer Social History Household Members: None Housing: Apartment Housing Other:: studio Are you a primary restorative care technician to a significant other at home: No Do you presently have visiting nurse or other home services: Yes Unable to assess alcohol history related to: Unknown Alcohol intake: never Comment: Pt declining bed alarm Patient Tobacco Use Status: Former Tobacco user Tobacco use type: Cigarette Years Smoked: 30 +/- e-Cigarette/Vaping Use: Never Used Second Hand Smoke Exposure: No Advance Directives Date on File: 11/21/23 service: No Current occupational status: unemployed Cognitive needs: No Hearing needs: No Vision needs: No Questionnaire PHQ-9 Over the last 2 weeks, how often have you been bothered by any of the following problems? 1. Little interest or pleasure in doing things: several days 2. Feeling down, depressed, or hopeless: not at all 3. Trouble falling or staying asleep, or sleeping too much: several days 4. Feeling tired or having little energy: several days 5. Poor appetite or overeating: not at all 6. Feeling bad about yourself - or that you are a failure or have let yourself or your family down: not at all 7. Trouble concentrating on things, such as reading the newspaper or watching television: not at all 8. Moving or speaking so slowly that other people could have noticed. Or the opposite - being so fidgety or restless that you have been moving around a lot more than usual: several days 9. Thoughts that you would be better off or of hurting yourself in some way: not at all Total score: 4 Source: Developed by Drs. Tarun Fernandez, Ciarra Alfred, Mik Sands and colleagues, with an educational kevan from [employer]. Thrive Questionnaire Date Thrive assessed: 03/05/25 I am a: Patient What is your living situation today?: I have a steady place to live Within the past 12 months, did the food you bought not last and you didn't have the money to get more?: Never true Within the past 12 months, did you worry whether your food would run out before you got money to buy more?: Never true Do you have trouble paying for medicines?: No Do you have trouble getting transportation to medical appointments?: No Do you have trouble paying your heating and electricity bill?: No Do you have trouble taking care of your child, family member or friend?: No Do you have trouble with day-to-day activities such as bathing, preparing meals, shopping, managing finances, etc.?: Yes Are you currently unemployed and looking for a job?: No Are you interested in more education?: No Please select the resources that you would like help with: None Currently or been in a relationship where the following occur: No concerns reported THRIVE Score: 0 AUDIT C Alcohol Use Questionnaire (AUDIT-C) 1. How often do you have a drink containing alcohol?: Never 3. How often do you have six or more drinks on one occasion?: Never Total Score: 0 PAUL-7 AMB Questionnaire PAUL-7 Date PAUL - 7 assessed: 03/05/25 Feeling nervous, anxious, or on edge: 0 = Not at all Not being able to stop or control worryin = Not at all Worrying too much about different things: 0 = Not at all Trouble relaxin = Several days Being so restless that it is hard to sit still: 0 = Not at all Becoming easily annoyed or irritable: 0 = Not at all Feeling afraid as if something awful might happen: 0 = Not at all Total PAUL-7 score (0-4 normal; 5-9 mild; 10-14 moderate; 15-21 severe): 1 Source: Developed by Drs. Tarun Fernandez, Ciarra Alfred, Mik Sands and colleagues, with an educational kevan from [employer]. Review of Systems Const Details: Positives besides what was mentioned in HPI are in BOLD Constitutional: No Weight Change, No Fever, No Chills, No Night Sweats, No Fatigue, No Malaise ENT/Mouth: No Hearing Changes, No Ear Pain, No Nasal Congestion, No Sinus Pain, No Hoarseness, No sore throat, No Rhinorrhea, No Swallowing Difficulty Eyes: No Eye Pain, No Swelling, No Redness, No Foreign Body, No Discharge, No Vision Changes Cardiovascular: No Chest Pain, No SOB, No PND, No Dyspnea on Exertion, No Orthopnea, No Claudication, No Edema, No Palpitations Respiratory: No Cough, No Sputum, No Wheezing, No Smoke Exposure, No Dyspnea Gastrointestinal: No Nausea, No Vomiting, No Diarrhea, No Constipation, No Pain, No Heartburn, No Anorexia, No Dysphagia, No Hematochezia, No Melena, No Flatulence, No Jaundice Genitourinary: No Dysmenorrhea, No DUB, No Dyspareunia, No Dysuria, No Urinary Frequency, No Hematuria, No Urinary Incontinence, No Urgency, No Flank Pain, No Urinary Flow Changes, No Hesitancy Musculoskeletal: No Arthralgias, No Myalgias, No Joint Swelling, No Joint Stiffness, No Back Pain, No Neck Pain, No Injury History Skin: No Skin Lesions, No Pruritis, No Hair Changes, No Breast/Skin Changes, No Nipple Discharge Neuro: No Weakness, No Numbness, No Paresthesias, No Loss of Consciousness, No Syncope, No Dizziness, No Headache, No Coordination Changes, No Recent Falls Psych: No Anxiety/Panic, No Depression, No Insomnia, No Personality Changes, No Delusions, No Rumination, No SI/HI/AH/VH, No Social Issues, No Memory Changes, No Violence/Abuse Hx., No Eating Concerns Heme/Lymph: No Bruising, No Bleeding, No Transfusions History, No Lymphadenopathy Endocrine: No Polyuria, No Polydipsia, No Temperature Intolerance Physical exam (Primary Care) Vital Signs: Last Vital Signs Temp 97.1 F 05/26/25 09:29 Pulse 83 05/26/25 09:29 BP 144/90 H 05/26/25 09:29 Pulse Ox 97 05/26/25 09:29 Oxygen Delivery Method Room Air 05/26/25 09:29 BMI result Body Mass Index 29.3 Tobacco/Smoking Status: Tobacco use Status Tobacco use date assessed 05/26/25 05/26/25 09:34 Patient Tobacco Use Status Former Tobacco user 05/26/25 09:34 Tobacco use type Cigarette 05/26/25 09:34 e-Cigarette/Vaping Use Never Used 05/26/25 09:34 PHQ-9: PHQ-9 Score PHQ-9: Total score 4 05/26/25 09:34 Thrive Assessment: Date of Thrive Assessment Date Thrive assessed 03/05/25 05/26/25 09:34 Currently or been in a relationship where the following occur: No concerns reported Const Other: Pertinent findings are in BOLD GENERAL APPEARANCE NAD, activity normal for age, well developed/ well nourished, no cyanosis, pallor, or diaphoresis. EYES lids/conjunctiva normal. EARS/NOSE/THROAT Mucous membranes moist, nares normal, lips/teeth normal uvula midline without oral pharyngeal erythema, exudate or swelling TMs normal bilaterally. No lymphangitis/lymphedema. HEAD/NECK normocephalic atraumatic, no facial trauma, neck is supple. RESPIRATORY respiratory effort normal, speaks in full sentences, no tripod position, no accessory muscle use. Lungs clear to auscultation without rhonchi, wheezes, rales CARDIAC Regular rate and rhythm, no edema. ABDOMINAL Soft, ND/NT. No evidence of fluid wave. No pulsatile masses on exam, rebound tenderness, Claudio sign or pain over Mcburney's point. MUSCLES/EXTREMITIES No abnormal range of motion, no swelling. SKIN Warm, pink and dry. No rashes, dermatoses, petechiae or lesions. NEUROLOGICAL Speech is clear and appropriate. Normal level of consciousness. Gait and coordination are normal. 5/5 strength in all extremities. PSYCH Normal mood and affect. Judgement/competence is appropriate Coding Level of Care Code TCM Mod MDM <= 14 Days Diagnoses Iron deficiency E61.1 Internal hemorrhoid, bleeding K64.8 Assessment & Plan Assessment & Plan (1) Iron deficiency: Code(s): E61.1 - Iron deficiency Category: Medical Plan: Iron profile. If Iron deficient she will need Iron supplement. (2) Internal hemorrhoid, bleeding: Code(s): K64.8 - Other hemorrhoids Category: Medical Plan: Patient reports bleeding has improved. F-U with General surgery 06/04. Plan I discussed with the patient the importance of following up with her surgical team on June 04 to evaluate her hemorrhoidal bleeding. We also reviewed the need for a blood test prior to this appointment to monitor her condition. Orders: Orders IRON PROFILE Today K64.8 - Other hemorrhoids Complete Blood Count Auto Diff 06/01/25 E61.1 - Iron deficiency, K64.8 - Other hemorrhoids Medications: Refilled [recliner] As directed 1 ea 0RF N18.6 - End stage renal disease, R60.9 - Edema, unspecified, Z99.2 - Dependence on renal dialysis
--- OUTSIDE RECORDS SUMMARY | 2025-05-26 11:10 | XMS_ITS ---
Author Organization [facility] Address [address] [place] [address] Care Team Providers Care Safety Pin Assembling Machine Operator Name Role Phone Emanuel Scruggs Primary Care Provider Transplant Episode Kidney Candidate [facility] ([place], [place]) - [facility] Evaluation began on 09/01/2024 Marked as Active on 09/01/2024 Kidney CoordinatorKimber Fallon RN Fax: N/A Email: N/A Scores Score Value Updated Exceptions/Reas ons CPRA Not available EPTS (Calc) 28 05/26/2025 [place] Organ Diagnosis Organ Primary Contributory Kidney Hypertensive Nephrosclerosis Care Team Name Role Phone Fax Email Kimber Fallon RN Kidney Coordinator [phone] N/A N/A Danis Betancur Referring Physician [phone] N/A Events Pre-Transplant Referred: 07/07/2024 Evaluation began: 09/01/2024 Dialysis History Dialysis History Start End Type Comments Center 11/24/2024 In-center Hemodialysis M [facility] Dialysis [facility] Dialysis Center Information Center Phone Fax Address [facility] [phone] [address] [facility] [address]
--- OUTSIDE RECORDS SUMMARY | 2025-05-26 11:10 | XMS_ITS | Clinical Summary ---
Author Organization [facility], Address [address] [place] [address] Phone Care Team Providers Care Searchlight Operator Name Role Phone Mary Garcia LISA Primary Care Provider [phone] Allergies Active Allergy Reactions Criticality Noted Date [...] in the evening. Active ergocalciferol 1.25 MG (19610 UT) capsule Take 1 capsule by mouth [...] Encounters Date Type Department Care Team Description 05/20/2025 Orders Only [facility] [address] [address] Tima Salas MD 05/18/2025 Telephone [facility] [address] [place] [address] Love Larry 05/06/2025 Orders Only [facility] [address] [address] Tima Salas MD 05/01/2025 Telephone [facility] [address] [place] [address] [place] [address] Viv Aguilera 04/22/2025 Telephone [facility] [address] [place] [address] [place] [address] Nanci Chowdary 04/08/2025 Orders Only [facility] [address] [address] Tima Salas MD 04/07/2025 2:00 PM EDT Office Visit [facility] [address] [place] [phone] Fredo Walsh MD End stage renal disease (HCC) (Primary Dx) 04/07/2025 Documentation Only [facility] [address] [phone] Delilah Alanis 04/03/2025 Telephone [facility] [address] [place] [phone] Yessica Munoz 04/03/2025 Telephone [facility] [address] [place] [phone] AlexanderAmanday 03/18/2025 Orders Only [facility] [address] [address] Tima Salas MD 03/12/2025 8:45 AM EDT Office Visit [facility] [address] [place] [address] [place] [address] Fredo Walsh MD End stage renal disease (HCC) (Primary Dx) 03/10/2025 Telephone [facility] [address] [place] [address] [place] [address] Viv Aguilera 03/04/2025 Orders Only [facility] [address] [address] Tima Salas MD from Last 3 Months [...] Care Team (Late st Contact Info) Description 06/09/2025 11:00 AM EDT Office Visit [facility] [address] [place] [address] [place] [address] Health Maintenance Due Date Last Done Comments [...] Procedure Name Priority Date/Time Associated Diagnosis Comments IMMUNO CHEMISTRY Routine 05/20/2025 THYROIDS Routine 05/20/2025 CHEMISTRY Routine 05/20/2025 CHEMISTRY Routine 05/20/2025 HEMATOLOGY Routine 05/20/2025 HD KINETICS Routine 05/06/2025 CHEMISTRY Routine 05/06/2025 POST CHEMISTRY Routine 05/06/2025 HD KINETICS Routine 04/08/2025 POST CHEMISTRY Routine 04/08/2025 CHEMISTRY Routine 04/08/2025 THYROIDS Routine 03/18/2025 CHEMISTRY Routine 03/18/2025 CHEMISTRY Routine 03/18/2025 IMMUNO CHEMISTRY Routine 03/18/2025 HEMATOLOGY Routine 03/18/2025 HD KINETICS Routine 03/04/2025 CHEMISTRY Routine 03/04/2025 POST CHEMISTRY Routine 03/04/2025 from Last 3 Months Results * (ABNORMAL) THYROIDS (05/20/2025) Only the most recent of2 resultswithin the time period is included. TSH 4.575(H) 0.300 - 3.000 mIU/L [facility] Comment: The reference range of 0.300-3.000 mIU/L is recommended by the [place] Association of Clinical Endocrinologists (AACE). An ESRD population contains about 20% of individuals with TSH of up to 20 mIU/L and normal free T4 consistent with non-thyroidal illness. ESRD patients with true hypothyroidism develop persistent values above 20 mIU/L. 05/20/2025 05/21/2025 8:2 2 AM EDT Narrative Resulting Agency Comment Specimen source: Serum Tima Salas MD LAB BLOOD ORDERABLES Final Re sult [facility] See order comments or contact performing lab Unknown, [place] * IMMUNO CHEMISTRY (05/20/2025) Only the most recent of2 resultswithin the time period is included. Hep B Surface Ag Negative Negative [facility] 05/20/2025 05/21/2025 8:2 2 AM EDT Narrative Resulting Agency Comment Specimen source: Serum Tima Salas MD LAB BLOOD ORDERABLES Final Re sult [facility] See order comments or contact performing lab Unknown, [place] * (ABNORMAL) HEMATOLOGY (05/20/2025) Only the most recent of2 resultswithin the time period is included. WBC 4.44(L) 4.80 - 10.80 1000/mcL [facility] RBC 2.94(L) 4.20 - 5.40 mill/mcL [facility] Hematocrit 27.1(L) 37.0 - 47.0 % [facility] MCV 92 80 - 100 fl [facility] MCH 30.4 27.0 - 31.0 pg [facility] MCHC 32.9 30.0 - 36.0 g/dL [facility] RDW 14.8(H) 11.5 - 14.5 % [facility] Hemoglobin 8.9(L) 12.0 - 16.0 g/dL [facility] Hemoglobin x 3 26.7(L) 36.0 - 48.0 % [facility] Platelets 128(L) 130 - 400 1000/mcL [facility] 05/20/2025 05/21/2025 9:1 8 AM EDT Narrative [facility] - 05/21/2025 Unless otherwise specified, test(s) performed at: [email or web address], [address] [place], [place] [id number] RN PROVIDER RELATIONS: Latrell Pollack M.D. For any questions, please call customer service at FREQUENCY:MONTHLY Resulting Agency Comment Specimen source: Blood Tima Salas MD LAB BLOOD ORDERABLES Final Re sult Performing Organization Address [facility] de Phone Number [facility] See order comments or contact performing lab Unknown, [place] * (ABNORMAL) [facility] Chemistry (05/20/2025) Only the most recent of7 resultswithin the time period is included. PTH 2,400(H) 16 - 80 pg/mL [facility] Comment: Verified by repeat analysis. 05/20/2025 05/21/2025 9:0 1 AM EDT Narrative [facility] - 05/21/2025 Unless otherwise specified, test(s) performed at: [email or web address], [address] [place] [id number] RN PROVIDER RELATIONS: Latrell Pollack M.D. For any questions, please call customer service at FREQUENCY:MONTHLY Resulting Agency Comment Specimen source: Plasma Tima Salas MD LAB BLOOD ORDERABLES Final Re sult Performing Organization Address City/[facility]/ZIP Co de Phone Number [facility] See order comments or contact performing lab Unknown, [place] * (ABNORMAL) HD KINETICS (05/06/2025) Only the most recent of3 resultswithin the time period is included. % Urea Reduction 48(L) 65 - 80 % [facility] 05/06/2025 05/07/2025 12: 27 PM EDT Narrative [facility] - 05/08/2025 Unless otherwise specified, test(s) performed at: [email or web address], [address] [place] [id number] RN PROVIDER RELATIONS: Latrell Pollack M.D. For any questions, please call customer service at FREQUENCY:OTHER Resulting Agency Comment Specimen source: Plasma Tima Salas MD LAB BLOOD ORDERABLES Final Re sult Performing Organization Address [facility] de Phone Number [employer] See order comments or contact performing lab Unknown, [place] * (ABNORMAL) POST CHEMISTRY (05/06/2025) Only the most recent of3 resultswithin the time period is included. BUN Post Dialysis 49(H) 6 - 19 mg/dL [facility] 05/06/2025 05/07/2025 12: 27 PM EDT Narrative [facility] - 05/07/2025 Unless otherwise specified, test(s) performed at: [email or web address], [address] [place] [address] RN PROVIDER RELATIONS: Latrell Pollack M.D. For any questions, please call customer service at FREQUENCY:OTHER Resulting Agency Comment Specimen source: Plasma Tima Salas MD LAB BLOOD ORDERABLES Final Re sult Performing Organization Address [facility] de Phone Number [facility] See order comments or contact performing lab Unknown, [place] from Last [address] [place] [address] Medicaid [place] [facility] Care Dual SNP ([id number]) [place] [id number] Care Teams Searchlight Operator Relationship Specialty Start Date End Date Mary Garcia FNP [address] [place] [address] PCP - General 06/19/22
--- OUTSIDE RECORDS SUMMARY | 2025-05-26 11:10 | XMS_ITS | Clinical Summary ---
Author Organization [facility] Address [address] [place] [address] Care Team Providers Care Woods Laborer Name Role Phone Emanuel Scruggs Primary Care Provider [phone] Allergies Active Allergy Reactions Criticality Noted Date [...] Team Description 04/16/2025 2:30 PM EDT Follow-Up [facility] Liver Transplant Services [address] [place] [address] Natasha Lott MD Abdominal wall hernia (Primary Dx); ESRD (end stage renal disease) (HCC); Hemodialysis patient (HCC); Hyperparathyroidism, secondary renal (HCC) 04/16/2025 Documentation [facility] Transplant Department [address] [place] [address] Kimber Fallon, RN Kidney Eval 03/10/2025 Telephone [facility] Transplant Department [address] [place] [address] Kimber Fallon, RN 03/03/2025 Telephone [facility] Transplant Department [address] [place] [address] Kimber Fallon, RN from Last 3 Months [...] Info) Description 08/19/2025 1:40 PM EST Follow-Up [facility] Renal Transplant [address] [place] [address] Tito Patricio MD [address] [place], [place] [phone] Devante Juarez MD [address] [place], [place] [phone] 08/19/2025 2:00 PM EST Social Work [facility] Renal Transplant [address] [place] [address] Tito Patricio MD [address] [place], [place] [phone] Thomas Freeman Health Maintenance Due Date Last [...] Screening Completed 09/01/2024 Procedures * Due to [place] [employer] law, this organization might not be sharing [...] to Health Maintenance Results * Due to [place] [employer] law, this organization might not be sharing [...] - 3.90 10*3/uL 09/01/2024 3:19 PM EST [facility] Monocyte # 0.30 0.20 - 0.95 10*3/uL 09/01/2024 3:19 PM EST [facility] FairlyRIT[facility] - [employer] [facility] Eosinophil # 0.10 0.02 - 0.50 10*3/uL 09/01/2024 3:19 PM EST [facility] [employer] [facility] Basophil # <0.03 0.00 - 0.20 10*3/uL 09/01/2024 3:19 PM EST [facility] nRBC % 0.0 /100 WBCs 09/01/2024 3:19 PM EST [facility] nRBC # <0.01 <0.01 10*3/uL 09/01/2024 3:19 PM EST [facility] Blood Structure of peripheral vein / Unknown Venipuncture / Unknown 09/01/2024 2:46 PM EST 09/01/2024 3:10 PM EST us Tito Patricio MD LAB BLOOD ORDERABLES Final Resu lt [facility] [address] [place] [address], * Hepatitis C Antibody w/Reflex to PCR (09/01/2024 2:46 PM EST) Hepatitis C Antibody NON-REACT JILL NON-REACT JILL 09/02/2024 7:23 AM EST [facility] Comment: HCV antibody was non-reactive. There is no laboratory evidence of HCV infection. In most cases, no further action is required. However, if recent HCV exposure is suspected, a test for HCV RNA (test code 50935) is suggested. For additional information please refer to http://education.[employer]faq/PMY27o7 (This link is being provided for informational/ educational purposes only.) Blood Structure of peripheral vein / Unknown Venipuncture / Unknown 09/01/2024 2:46 PM EST 09/01/2024 3:07 PM EST Narrative [facility] - 09/02/2024 7:23 AM EST [facility] Received Date:[id number] us Tito Patricio MD LAB BLOOD ORDERABLES Final Resu lt Performing Organization Address City/[facility]/ZIP Co de Phone Number [facility]IGN[facility]IT[facility] [address], [place] [address], [place] [phone] [employer] [facility] [address], [place] [address], [place] [phone] * (ABNORMAL) Phosphorus (09/01/2024 2:46 PM EST) Phosphorus 8.2(H) 2.5 - 4.5 mg/dL 09/01/2024 3:52 PM EST [facility] Blood Structure of peripheral vein / Unknown Venipuncture / Unknown 09/01/2024 2:46 PM EST 09/01/2024 3:10 PM EST us Tito Patricio MD LAB BLOOD ORDERABLES Final Resu lt Performing Organization Address City/[facility]/ZIP Co de Phone Number [facility] [address] [place] [address], * (ABNORMAL) PTH, Intact (without Calcium) (09/01/2024 2:46 PM EST) Parathyroid Hormone, Intact 1488(H) 16 - 77 pg/mL 09/03/2024 7:22 AM EST [employer] [facility] Comment: Interpretive Guide Intact PTH Calcium [...] LAB BLOOD ORDERABLES Final Resu lt [facility]DIGN[facility]ITALK[facility] [address], [place] [address], [place] [phone] [facility] [address], [place] [address], [place] [phone] from Last 3 Months or Most Recently Relevant to Health Maintenance Insurance [facility] Care Teams Woods Laborer Relationship Specialty Start Date End Date Emanuel Scruggs [address] [place] [phone] PCP - General 03/22/17
--- OUTSIDE RECORDS SUMMARY | 2025-05-26 11:10 | XMS_ITS | Encounter Summary ---
Author Organization [facility] [place], Address [address] [place] [address] Phone Care Team Providers Care Co Chairman Name Role Phone Mary Garcia Primary Care Provider [phone] Encounter Details Date Type Department Care Team ([facility] Contact Info) Description 05/20/2025 Orders Only [facility] [address] [place] [address] Tima Salas MD [address] [place] [phone] Social History Tobacco Use Types Packs/Day Years [...] Upcoming Encounters Date Type Department Care Team ([facility] Contact Info) Description 06/09/2025 11:00 AM EDT Office Visit [facility] [place], - [facility] Center [address] [place] [phone] documented as of this encounter Procedures Procedure Name Priority Date/Time Associated Diagnosis Comments THYROIDS Routine 05/20/2025 IMMUNO CHEMISTRY Routine 05/20/2025 HEMATOLOGY Routine 05/20/2025 CHEMISTRY Routine 05/20/2025 CHEMISTRY Routine 05/20/2025 documented in this encounter Results * IMMUNO CHEMISTRY (05/20/2025) Hep B Surface Ag Negative Negative [facility] 05/20/2025 05/21/2025 8:2 2 AM EDT Narrative Resulting Agency Comment Specimen source: Serum Tima Salas MD LAB BLOOD ORDERABLES Final Re sult Performing Organization Address City/[facility]/ZIP Co de Phone Number [facility] See order comments or contact performing lab Unknown, [place] * (ABNORMAL) THYROIDS (05/20/2025) Pathologist [facility] TSH 4.575(H) 0.300 - 3.000 mIU/L [facility] Comment: The reference range of 0.300-3.000 mIU/L is recommended by the [place] Association of Clinical Endocrinologists (AACE). An ESRD [...] ORDERABLES Final Re sult Performing Organization Address [facility] Co de Phone Number [facility] See order comments or contact performing lab Unknown, [place] * (ABNORMAL) [facility] (05/20/2025) PTH 2,400(H) 16 - 80 pg/mL [facility] Comment: Verified by repeat analysis. 05/20/2025 05/21/2025 9:0 1 AM EDT Narrative [facility] - 05/21/2025 Unless otherwise specified, test(s) performed at: [facility], [address] [place], [place] [phone] INSTRUMENTAL MUSIC TEACHER: Latrell Pollack M.D. For any questions, please call customer service at FREQUENCY:MONTHLY Resulting Agency Comment Specimen source: Plasma us Tima Salas MD LAB BLOOD ORDERABLES Final Re sult [facility] See order comments or contact performing lab Unknown, [place] * (ABNORMAL) [facility] (05/20/2025) BUN 72(H) 6 - 19 mg/dL [facility] Creatinine 9.05(H) 0.60 - 1.30 mg/dL [facility] BUN/Creatinine Ratio 8.0(L) 10.0 - 20.0 [facility] Sodium 139 136 - 145 mEq/L [facility] Potassium 4.7 3.5 - 5.1 mEq/L [facility] Chloride 107 96 - 108 mEq/L [facility] Bicarbonate (CO2) 18(L) 22 - 29 mEq/L [facility] Calcium 8.1(L) 8.4 - 10.2 mg/dL [facility] Corrected Calcium 8.5 8.4 - 10.2 mg/dL [facility] Comment: Corrected Calcium is not equivalent to measured Ionized Calcium. Phosphorus 8.4(H) 2.6 - 4.5 mg/dL [facility] Calcium Phosphorus Product 68(H) 0 - 54 [facility] Calcium Phosporus Product, Cor 71(H) 0 - 54 [facility] LDH 141 118 - 273 U/L [facility] Albumin 3.5 3.5 - 5.2 g/dL [facility] Glucose 84 70 - 100 mg/dL [facility] Iron 29(L) 30 - 160 mcg/dL [facility] UIBC 234 155 - 355 mcg/dL [facility] TIBC 263 185 - 515 mcg/dL [facility] Iron Saturation (TSat) 11(L) 20 - 55 % [facility] Ferritin 119 10 - 291 ng/mL [facility] 05/20/2025 05/21/2025 8:2 2 AM EDT Narrative [facility] - 05/21/2025 Unless otherwise specified, test(s) performed at: [facility], [address] [place] [id number] INSTRUMENTAL MUSIC TEACHER: Latrell Pollack M.D. For any questions, please call customer service at FREQUENCY:MONTHLY Resulting Agency Comment Specimen source: Serum Tima Salas MD LAB BLOOD ORDERABLES Edited R esult - Final [facility] See order comments or contact performing lab Unknown, [place] * (ABNORMAL) HEMATOLOGY (05/20/2025) WBC 4.44(L) 4.80 - 10.80 1000/mcL [facility] [...] 05/20/2025 05/21/2025 9:1 8 AM EDT Narrative [facility] - 05/21/2025 Unless otherwise specified, test(s) performed at: [facility], [address] [place] [address] INSTRUMENTAL MUSIC TEACHER: Latrell Pollack M.D. For any questions, please call customer service at FREQUENCY:MONTHLY Resulting Agency Comment Specimen source: Blood Tima Salas MD LAB BLOOD ORDERABLES Final Re sult [facility] See order comments or contact performing lab Unknown, [place] documented in this encounter Visit Diagnoses Not on filedocumented in this encounter Care Teams Co Chairman Relationship Specialty Start Date End Date Mary Garcia FNP [address] [place] [address] PCP - General 06/19/22 documented as of this encounter
== END 2025-05-26 09:47 | disposition home or self-care (01) ==
LOC: HO.HMCH 09:25
PROVIDERS: PCP Internal Medicine; Visit Provider Internal Medicine
DX: E61.1 Iron deficiency (principal); K64.8 Other hemorrhoids

== ENCOUNTER → 2025-05-26 09:24 | Outpatient (BNVA) | payer OTHER, SELFPAY | PROVIDERS: PCP Internal Medicine; Visit Provider Internal Medicine | DX: N18.6 End stage renal disease (principal); K64.8 Other hemorrhoids; E61.1 Iron deficiency; R60.9 Edema, unspecified; Z99.2 Dependence on renal dialysis | CPT/HCPCS: 96127; 99495 ==

== ENCOUNTER → 2025-06-03 23:59 | Outpatient (BNV) | payer OTHER, SELFPAY | PROVIDERS: PCP Internal Medicine; Visit Provider Internal Medicine Nephrology | DX: N18.6 End stage renal disease (principal) | CPT/HCPCS: 90961 ==

== ENCOUNTER 2025-06-04 09:37 | Outpatient (AMB) | payer OTHER, SELFPAY ==
--- NOTE | 2025-06-04 09:38 | MHC.OFFVIS ---
Vital Signs 06/04/25 09:44 Height 5 ft 5 in Weight 173 lb BMI 28.8 BP 136/69 Blood Pressure Location Rt brachial Position Standing Pulse 111 H Intake Visit Reasons: bleeding hemorrhoids Intake Note: This patient presents for an assessment for bleeding hemorrhoids. Pt c/o; on ER visit 05/15/2025 pt mentioned she had a procedure done and that is what brought her into the ED. ER visit- 05/15/2025 05/15/2025-abd/pelvis CT Chief Engineer Waterworks Required: Yes Chief Engineer Waterworks Language: Moisture Conditioner Operator Services: Chief Engineer Waterworks Offered & Declined Accompanied by: Other Relationship Allergies Penicillins Allergy (Intermediate, Verified 06/04/25 09:45) RASH Medication List - Last Reconciled 06/04/25 by Saurabh Petit MD [bed rail As directed] blood pressure monitor As directed carvedilol 6.25 mg PO BID Grab bar As directed [hand held shower As directed] [pill box twice daily As directed] [recliner As directed] Shower Chair with back sitz bath As directed sitz bath As directed HPI HPI bleeding hemorrhoids: Details: 59-year-old female here for follow up for hemorrhoid bleed she had undergone IR embolization at the [facility] last May 14, 2025 and was admitted to the hospital the following day because of passage of blood per rectum. She was discharged after 3 days Her daughter says that she has not had any further bleeding. She seems to be doing well at home. [facility] Medical History ESRD (end stage renal disease) on dialysis Cardiomyopathy Noncompliance of patient with renal dialysis ESRD (end stage renal disease) on dialysis Back pain Asthma History of blood transfusion NSTEMI (non-ST elevated myocardial infarction) Atrial fibrillation Acute on chronic kidney failure Secondary hyperparathyroidism (of renal origin) Anemia in chronic kidney disease (CKD) Chronic systolic (congestive) heart failure CKD (chronic kidney disease) stage 5, GFR less than 15 ml/min Essential hypertension Normocytic anemia Surgical History History of esophagogastroduodenoscopy (EGD) Hx of colonoscopy History of surgery Status post dilation and curettage History of abdominal surgery History of extraction of renal calculus History of tubal ligation Family History Father Throat cancer Mother Hypertension Daughter In good health Daughter In good health Sister In good health Family/Other Breast cancer Social History Household Members: None Housing: Apartment Housing Other:: studio Are you a primary respiratory care practitioner to a significant other at home: No Do you presently have visiting nurse or other home services: Yes Unable to assess alcohol history related to: Unknown Alcohol intake: never Comment: Pt declining bed alarm Patient Tobacco Use Status: Former Tobacco user Tobacco use type: Cigarette Years Smoked: 30 +/- e-Cigarette/Vaping Use: Never Used Second Hand Smoke Exposure: No Advance Directives Date on File: 11/21/23 service: No Current occupational status: unemployed Cognitive needs: No Hearing needs: No Vision needs: No Review of Systems Const Denies chills and Denies fever(s) Card Denies chest pain at rest and Denies dyspnea Resp Denies dyspnea GI Denies abdominal pain and Denies hematochezia Denies urinary frequency Physical Exam Const General: comfortable and no acute distress Resp Effort & Inspection: normal respiratory effort Cardio Rate: regular rate GI Other: Rectal exam -moderate size external hemorrhoids Palpation (GI): Soft to palpation, not firm, nontender and no guarding Office Procedures Anoscopy She was in kneeling muriel-knife position. The anoscope was gently inserted. A full exam of the anal canal was done. She did have internal external hemorrhoids, moderate-sized. There was no active bleeding. There were no ulcers or fissures. There was no induration on the exam. There were no lesions. [id number] Assessment & Plan Assessment & Plan (1) Internal hemorrhoid, bleeding: Code(s): K64.8 - Other hemorrhoids Category: Medical Plan: She had IR embolization by Dr. Cantu last month and was admitted to the hospital the following day because of passage of blood per rectum requiring transfusion She has had no bleeding since discharge. She seems to be doing well at home Anoscopy shows internal external hemorrhoids I instructed her to see Dr. Cantu for a follow up. She can follow up with me on a PRN basis if she can continues to have problems with the hemorrhoids down the line. Coding Level of Care Code Est Pt Level 3 (45095) Diagnoses Internal hemorrhoid, bleeding K64.8 CPT Codes Details - CPT: 40017-Fypnqqyo ([id number])
[2025-06-04 09:44] VITALS: BP 136/69; PULSE 111; BMI 28.8
--- OUTSIDE RECORDS SUMMARY | 2025-06-04 10:38 | XMS_ITS | Clinical Summary ---
Author Organization [facility] Address [address] [place] [address] Care Team Providers Care Barrel Straightener Name Role Phone Emanuel Scruggs Primary Care Provider [phone] Allergies Active Allergy Reactions Criticality Noted Date [...] Team Description 04/16/2025 2:30 PM EDT Follow-Up [facility] Liver Transplant Services [address] [place] [address] Natasha Lott MD Abdominal wall hernia (Primary Dx); ESRD (end stage renal disease) (HCC); Hemodialysis patient; Hyperparathyroidism, secondary renal (HCC) 04/16/2025 Documentation [facility] Transplant Department [address] [place] [address] Kimber Fallon, RN Kidney Eval 03/10/2025 Telephone [facility] Transplant Department [address] [place] [address] Kimber Fallon, RN from Last 3 Months [...] Info) Description 08/19/2025 1:40 PM EST Follow-Up [facility] Renal Transplant [address] [place] [address] Tito Patricio MD [address] [place], [place] [phone] Devante Juarez MD [address] [place], [place] [phone] 08/19/2025 2:00 PM EST Social Work [facility] Renal Transplant [address], [place] [phone] Tito Patricio MD [address] [place], [place] [phone] [facility] Health Maintenance Due Date Last [...] of Health Annual Screening 09/03/2024 COVID-19 Vaccine (1 - 2023- season) 2025 Influenza Vaccine (#1) 2025 Hemoglobin 09/01/2025 09/01/2024 PTH 09/01/2025 09/01/2024 Phosphorus 09/01/2025 09/01/2024 RSV Vaccine (60+ years old a nd patients) (1 - 1-dose 75+ series) 2040 CKD: Referral to Nephrology Completed 09/01/2024 HIV Screening Completed 09/01/2024 Hepatitis C Screening Completed 09/01/2024 Procedures * Due to [facility] law, this organization might not be sharing [...] Health Maintenance Results * Due to [place] [employer] law, this organization might not be sharing [...] - 0.95 10*3/uL 09/01/2024 3:19 PM EST [facility] Eosinophil # 0.10 0.02 - 0.50 10*3/uL 09/01/2024 3:19 PM EST [facility] Basophil # <0.03 0.00 - 0.20 10*3/uL 09/01/2024 3:19 PM EST [facility] nRBC % 0.0 /100 WBCs 09/01/2024 3:19 PM EST [facility] nRBC # <0.01 <0.01 10*3/uL 09/01/2024 3:19 PM EST [facility] Blood Structure of peripheral vein / Unknown Venipuncture / Unknown 09/01/2024 2:46 PM EST 09/01/2024 3:10 PM EST us Tito Patricio MD LAB BLOOD ORDERABLES [facility] [address] [place] [address], * Hepatitis C Antibody w/Reflex to PCR (09/01/2024 2:46 PM EST) Hepatitis C Antibody NON-REACT JILL NON-REACT JILL 09/02/2024 7:23 AM EST [facility] Comment: HCV antibody was non-reactive. There is no laboratory evidence of HCV infection. In most cases, no further action is required. However, if recent HCV exposure is suspected, a test for HCV RNA (test code 94200) is suggested. For additional information please refer to http://education.TouchPo Android POS.travelmob/faq/MZP30i3 (This link is being provided for informational/ educational purposes only.) Blood Structure of peripheral vein / Unknown Venipuncture / Unknown 09/01/2024 2:46 PM EST 09/01/2024 3:07 PM EST [facility] 09/02/2024 7:23 AM EST [facility] Received Date: Tito Patricio MD LAB BLOOD ORDERABLES Final Resu lt [facility] [address], [place] [address], [place] [phone] [facility] [address], [place] [address], [place] [phone] * (ABNORMAL) Phosphorus (09/01/2024 2:46 PM EST) Phosphorus 8.2(H) 2.5 - 4.5 mg/dL 09/01/2024 3:52 PM EST [facility] Blood Structure of peripheral vein / Unknown Venipuncture / Unknown 09/01/2024 2:46 PM EST 09/01/2024 3:10 PM EST Tito Patricio MD LAB BLOOD ORDERABLES Final Resu lt [facility] [address] [place] [address], * (ABNORMAL) PTH, Intact (without Calcium) (09/01/2024 2:46 PM EST) Parathyroid Hormone, Intact 1488(H) 16 - 77 pg/mL 09/03/2024 7:22 AM EST [facility] Comment: Interpretive Guide Intact PTH Calcium ------- Normal Parathyroid Normal Normal Hypoparathyroidism Low or Low Normal Low Hyperparathyroidism Primary Normal or High High Secondary High Normal or Low Tertiary High High Non-Parathyroid Hypercalcemia Low or Low Normal High Blood Structure of peripheral vein / Unknown Venipuncture / Unknown 09/01/2024 2:46 PM EST 09/01/2024 3:10 PM EST Narrative [facility] - 09/03/2024 7:22 AM EST [facility] Received Date: us Tito Patricio MD LAB BLOOD ORDERABLES Final Resu lt [facility] [address], [place] [address], [place] [phone] [facility] [address], [place] [address], [place] [phone] from Last 3 Months or Most Recently Relevant to Health Maintenance Insurance [facility] Care Teams Barrel Straightener Relationship Specialty Start Date End Date Emanuel Scruggs [address] [place] [id number] [facility] - General 03/22/17
--- OUTSIDE RECORDS SUMMARY | 2025-06-04 10:38 | XMS_ITS ---
Author Organization [facility] Address [address] [place] [address] Care Team Providers Care Pharmacy Operations Manager Name Role Phone Emanuel Scruggs Primary Care Provider [phone] Transplant Episode Kidney Candidate [facility] ([place], [place]) - [facility] Evaluation began on 09/01/2024 Marked as Active on 09/01/2024 Kidney CoordinatorKimber Fallon RN Fax: N/A Email: N/A Scores Score Value Updated Exceptions/Reas ons CPRA Not available EPTS (Calc) 29 06/04/2025 [place] Organ Diagnosis Organ Primary Contributory Kidney Hypertensive Nephrosclerosis Care Team Name Role Phone Fax Email Kimber Fallon RN Kidney Coordinator [phone] N/A N/A Danis Betancur Referring Physician [phone] N/A Events Pre-Transplant Referred: 07/07/2024 Evaluation began: 09/01/2024 Dialysis History Dialysis History Start End Type Comments Center 11/24/2024 In-center Hemodialysis M [facility] F [facility] Dialysis Center Dialysis Center Information Center Phone Fax Address [facility] [phone] [address] [facility] [address]
--- OUTSIDE RECORDS SUMMARY | 2025-06-04 10:38 | XMS_ITS | Clinical Summary ---
Author Organization [facility], Address [address] [place] [address] Phone Care Team Providers Care Shoe Repairer Apprentice Name Role Phone Mary Garcia LISA Primary Care Provider [phone] Allergies Active Allergy Reactions Criticality Noted Date [...] in the evening. Active ergocalciferol 1.25 MG (01374 UT) capsule Take 1 capsule by mouth [...] Only [facility] [address] [address] Tima Salas MD 05/18/2025 Telephone [facility] [address] [place] [address] Love Larry 05/06/2025 Orders Only [facility] [address] [address] Tima Salas MD 05/01/2025 Telephone [facility] [address] [address] Viv Aguilera 04/22/2025 Telephone [facility] [address] [place] [address] [place] [address] Nanci Chowdary 04/08/2025 Orders Only [facility] [address] [address] Tima Salas MD 04/07/2025 2:00 PM EDT Office Visit [facility] [address] [place] [address] Fredo Walsh MD End stage renal disease (HCC) (Primary Dx) 04/07/2025 Documentation Only [facility] [address] [address] Delilah Alanis 04/03/2025 Telephone [facility] [address] [place] [address] Yessica Munoz 04/03/2025 Telephone [facility] [address] [place] [address] AlexanderAmanday 03/18/2025 Orders Only [facility] [address] [address] Tima Salas MD 03/12/2025 8:45 AM EDT Office Visit [facility] [address] [place] [address] [place] [address] Fredo Walsh MD End stage renal disease (HCC) (Primary Dx) 03/10/2025 Telephone [facility] [address] [place] [address] [place] [address] Viv Aguilera 03/04/2025 Orders Only [facility] [address] [address] Tima Salas MD from Last 3 Months [...] Visit [facility] [address] [place] [address] Health Maintenance Due Date Last Done Comments [...] of 0.300-3.000 mIU/L is recommended by the [place] [employer] Clinical Endocrinologists (AACE). An ESRD population contains about 20% of individuals with TSH of up to 20 mIU/L and normal free T4 consistent with non-thyroidal illness. ESRD patients with true hypothyroidism develop persistent values above 20 mIU/L. 05/20/2025 05/21/2025 8:2 2 AM EDT Narrative Resulting Agency Comment Specimen source: Serum Tima Salas MD LAB BLOOD ORDERABLES Final Re sult [facility] See order comments or contact performing lab Unknown, [place] * IMMUNO CHEMISTRY (05/20/2025) Only the most recent of2 resultswithin the time period is included. Hep B Surface Ag Negative Negative [facility] 05/20/2025 05/21/2025 8:2 2 AM EDT Narrative Resulting Agency Comment Specimen source: Serum Tima Salas MD LAB BLOOD ORDERABLES Final Re sult [email or web address] See order comments or contact performing [...] 05/20/2025 05/21/2025 9:1 8 AM EDT Narrative [facility] - 05/21/2025 Unless otherwise specified, test(s) performed at: [facility], [address] [place] [address] MOLD INJECTOR: Latrell Pollack M.D. For any questions, please call customer service at FREQUENCY:MONTHLY Resulting Agency Comment Specimen source: Blood Tima Salas MD LAB BLOOD ORDERABLES Final Re sult Performing Organization Address [facility] de Phone Number [facility] See order comments or contact performing lab Unknown, [place] * (ABNORMAL) [facility] (05/20/2025) Only the most recent of7 resultswithin the time period is included. PTH 2,400(H) 16 - 80 pg/mL [facility] Comment: Verified by repeat analysis. 05/20/2025 05/21/2025 9:0 1 AM EDT Narrative [facility] - 05/21/2025 Unless otherwise specified, test(s) performed at: [facility], [address] [place] [id number] MOLD INJECTOR: Latrell Pollack M.D. For any questions, please call customer service at FREQUENCY:MONTHLY Resulting Agency Comment Specimen source: Plasma Tima Salas MD LAB BLOOD ORDERABLES Final Re sult Performing Organization Address [facility]/ZIP Co de Phone Number [facility] See order comments or contact performing lab Unknown, [place] * (ABNORMAL) [facility] (05/06/2025) Only the most recent of3 resultswithin the time period is included. % Urea Reduction 48(L) 65 - 80 % [facility] 05/06/2025 05/07/2025 12: 27 PM EDT Narrative [facility] - 05/08/2025 Unless otherwise specified, test(s) performed at: [facility], [address] [place] [id number] MOLD INJECTOR: Latrell Pollack M.D. For any questions, please call customer service at FREQUENCY:OTHER Resulting Agency Comment Specimen source: Plasma Tima Salas MD LAB BLOOD ORDERABLES Final Re sult Performing Organization Address [facility] de Phone Number [facility] See order comments or contact performing lab Unknown, [place] * (ABNORMAL) POST CHEMISTRY (05/06/2025) Only the most recent of3 resultswithin the time period is included. BUN Post Dialysis 49(H) 6 - 19 mg/dL [facility] 05/06/2025 05/07/2025 12: 27 PM EDT Narrative [facility] - 05/07/2025 Unless otherwise specified, test(s) performed at: [facility], [address] [place] [address] MOLD INJECTOR: Latrell Pollack M.D. For any questions, please call customer service at FREQUENCY:OTHER Resulting Agency Comment Specimen source: Plasma Tima Salas MD LAB BLOOD ORDERABLES Final Re sult Performing Organization Address [facility] de Phone Number [facility] See order comments or contact performing lab Unknown, [place] from Last 3 Months Insurance [facility] [place] [id number] Medicaid [place] [facility] One Care Dual SNP ([id number]) [place] [phone] Care Teams Shoe Repairer Apprentice Relationship Specialty Start Date End Date Mary Garcia FNP [address] [place] [id number] PCP - General 06/19/22
== END 2025-06-04 09:54 | disposition home or self-care (01) ==
LOC: HO.HGS 09:37
PROVIDERS: PCP Internal Medicine; Visit Provider Surgery
DX: K64.8 Other hemorrhoids (principal)
CPT/HCPCS: 46600; 99213

== ENCOUNTER → 2025-06-04 09:37 | Outpatient (BNVA) | payer OTHER, SELFPAY | PROVIDERS: PCP Internal Medicine; Visit Provider Surgery | DX: Z09 Encounter for follow-up examination after completed treatment for conditions other than malignant neoplasm (principal); K64.8 Other hemorrhoids | CPT/HCPCS: 46600; 99212 ==

== ENCOUNTER → 2025-07-04 23:59 | Outpatient (BNV) | payer OTHER, SELFPAY | PROVIDERS: PCP Internal Medicine; Visit Provider Internal Medicine Nephrology | DX: N18.6 End stage renal disease (principal) | CPT/HCPCS: 90961 ==

== ENCOUNTER 2025-07-31 09:54 | Emergency (ER) | payer OTHER, SELFPAY ==
--- NOTE | ~2025-07-31 | XR_ITS ---
EXAMINATION: XR CHEST CLINICAL INFORMATION: cough COMPARISON: 11/14/2024, 11/09/2023. TECHNIQUE: 2 views of the chest were obtained. FINDINGS: Left-sided tunneled dialysis catheter in place, with tip terminating in the cavoatrial junction region. The heart is mildly prominent. Mediastinal and hilar contours appear normal. Aortic mural calcifications. Mild biapical pleural thickening/scarring. There is minor atelectasis in the left base. The lungs otherwise appear clear bilaterally. There is no pneumothorax or pleural effusion. There is no focal osseous or soft tissue abnormality. There are surgical clips in the upper abdomen. XR/XR chest 2V IMPRESSION: 1. Left-sided catheter in place, well positioned. 2. No active pulmonary disease. Electronically signed by: Thomas Multani MD 07/31/2025 10:28 AM DELIO
[2025-07-31 10:02] VITALS: BP 195/90; PULSE 88; RESP 18; TEMP 36.8; O2SAT 98; BMI 28.3
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
[2025-07-31 10:38] LABS: IDNOW Serial# 55D5AD1C; Strep A Nucleic Acid Negative (Negative)
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
--- OUTSIDE RECORDS SUMMARY | 2025-07-31 10:47 | XMS_ITS ---
Author Organization [facility] Address [address] [place] [address] Care Team Providers Care Auto Salvage Worker Name Role Phone Emanuel Scruggs Primary Care Provider [phone] Transplant Episode Kidney Candidate [facility] ([place], [place]) - JEIMY Evaluation began on 09/01/2024 Marked as Active on 09/01/2024 Kidney CoordinatorKimber Fallon RN Fax: N/A Email: N/A Scores Score Value Updated Exceptions/Reas ons CPRA Not available EPTS (Calc) 30 07/31/2025 Unga Organ Diagnosis Organ Primary Contributory Kidney Hypertensive Nephrosclerosis Care Team Name Role Phone Fax Email Kimber Fallon RN Kidney Coordinator [phone] N/A N/A Danis Betancur Referring Physician [phone] N/A Events Pre-Transplant Referred: 07/07/2024 Evaluation began: 09/01/2024 Appointments (06/30/2025 - 08/30/2025) When With Visit Type Description 08/19/2025 Transplant - Lydia, R Follow Up 08/19/2025 Transplant - Mahogany Juarez U p Dialysis History Dialysis History Start End Type Comments Center 11/24/2024 In-center Hemodialysis [facility] Dialysis [facility] Information Center Phone Fax Address [facility] [phone] [facility] [address]
--- OUTSIDE RECORDS SUMMARY | 2025-07-31 10:47 | XMS_ITS | Clinical Summary ---
Author Organization [facility] Address [address] [place] [address] Care Team Providers Care Hogshead Inspector Name Role Phone Emanuel Scruggs Primary Care Provider [phone] Allergies Active Allergy Reactions Criticality Noted Date [...] Encounters Date Type Department Care Team Description 06/05/2025 Telephone [facility] Transplant Department [address] [place] [address] Kimber Fallon RN 06/05/2025 Telephone [facility] Transplant Department [address] [place] [address] Melody Gonzalez, LEROY from Last 3 Months Family History Medical [...] Info) Description 08/19/2025 1:40 PM EST Follow-Up [facility] Renal Transplant [address] [place] [address] Tito Patricio MD [address] [place] [address] Devante Juarez MD [address] [place], [place] [id number] 08/19/2025 2:00 PM EST Social Work [facility] Renal Transplant [address] [place] [address] Tito Patricio MD [address] [place] [address] [facility] Health Maintenance Due Date Last Done Comments 25 Hydroxy / Vitamin D 1965 Basic Metabolic Panel 1965 CKD: Referral to Nutrition 1965 Cervical Cancer Screening 1965 Cologuard 1965 Colon Cancer Screening 1965 Colonoscopy 1965 FOBT / Fit Test 1965 HPV and Pap Smear 1965 Pap Smear 1965 Sigmoidoscopy 1965 Urine Microalbumin 1975 Pneumococcal Vaccine: 50+ Ye ars (1 of 2 - PCV) 1984 DTaP,Tdap,and Td Vaccines (1 - Tdap) 1987 Diabetes Screening [address] Lung Cancer Screening (Baseline) 2015 RSV Vaccine (60+ years old a nd patients) (1 - Risk 50-74 years 1-dose series) 2015 Zoster Vaccines (1 of 2) 2015 Alcohol/Substance Use Screening 09/03/2024 Depression Screening and Follow-Up 09/03/2024 Social Drivers of Health Sanjana ual Screening 09/03/2024 Influenza Vaccine (#1) 2025 COVID-19 Vaccine (1 - 2024-2 6 season) 2025 Hemoglobin 09/01/2025 09/01/2024 PTH 09/01/2025 09/01/2024 Phosphorus 09/01/2025 09/01/2024 CKD: Referral to Nephrology Completed 09/01/2024 HIV Screening Completed 09/01/2024 Hepatitis C Screening Completed 09/01/2024 Hepatitis B Vaccines Aged Out No long er eligible based on patient's age to complete this topic Procedures * Due to [place] state law, this organization might not be [...] Maintenance Results * Due to [place] state law, this organization might not be [...] - 0.20 10*3/uL 09/01/2024 3:19 PM EST [email or web address] nRBC % 0.0 /100 WBCs 09/01/2024 3:19 PM EST [facility] nRBC # <0.01 <0.01 10*3/uL 09/01/2024 3:19 PM EST [facility] Blood Structure of peripheral vein / Unknown Venipuncture / Unknown 09/01/2024 2:46 PM EST 09/01/2024 3:10 PM EST us Tito Patricio MD LAB BLOOD ORDERABLES Final Resu lt [facility] [address] [place] [address], * Hepatitis C Antibody w/Reflex to PCR (09/01/2024 2:46 PM EST) Hepatitis C Antibody NON-REACT JILL NON-REACT JILL 09/02/2024 7:23 AM EST [employer] Comment: HCV antibody was non-reactive. There is no laboratory evidence of HCV infection. In most cases, no further action is required. However, if recent HCV exposure is suspected, a test for HCV RNA (test code 19129) is suggested. For additional information please refer to http://education.[employer]/faq/WUI53t0 (This link is being provided for informational/ educational purposes only.) Blood Structure of peripheral vein / Unknown Venipuncture / Unknown 09/01/2024 2:46 PM EST 09/01/2024 3:07 PM EST Narrative [facility] 09/02/2024 7:23 AM EST [facility] Received Date:[id number] us Tito Patricio MD LAB BLOOD ORDERABLES Final Resu lt [facility] [address], [place] [address], [employer] [facility] [address] [facility] [address], [place] [address], [place] [phone] * (ABNORMAL) Phosphorus (09/01/2024 2:46 PM EST) Phosphorus 8.2(H) 2.5 - 4.5 mg/dL 09/01/2024 3:52 PM EST [email or web address] Blood Structure of peripheral vein / Unknown Venipuncture / Unknown 09/01/2024 2:46 PM EST 09/01/2024 3:10 PM EST us Tito Patricio MD LAB BLOOD ORDERABLES Final Resu lt [email or web address] [address] [place] [address], * (ABNORMAL) PTH, Intact (without Calcium) (09/01/2024 2:46 PM EST) Parathyroid Hormone, Intact 1488(H) 16 - 77 pg/mL 09/03/2024 7:22 AM EST [employer] [facility] Comment: Interpretive Guide Intact PTH Calcium ------- Normal Parathyroid Normal Normal Hypoparathyroidism Low or Low Normal Low Hyperparathyroidism Primary Normal or High High Secondary High Normal or Low Tertiary High High Non-Parathyroid Hypercalcemia Low or Low Normal High Blood Structure of peripheral vein / Unknown Venipuncture / Unknown 09/01/2024 2:46 PM EST 09/01/2024 3:10 PM EST Narrative [facility] 09/03/2024 7:22 AM EST [facility] Received Date: us Tito Patricio MD LAB BLOOD ORDERABLES Final Resu lt [facility] [address] [facility] [address] [facility], [place] [address], [place] [phone] [facility] [address], [place] [address], [place] [phone] from Last 3 Months or Most Recently Relevant to Health Maintenance Insurance [facility]IANCE [facility] [employer]I[facility] Care Teams Hogshead Inspector Relationship Specialty Start Date End Date Emanuel Scruggs [address] [place] [address] PCP - General 03/22/17
--- OUTSIDE RECORDS SUMMARY | 2025-07-31 10:47 | XMS_ITS | Clinical Summary ---
Author Organization [facility], Address [address] [place] [address] Phone Care Team Providers Care Bottle Blower Name Role Phone Mary Garcia LISA Primary Care Provider [phone] Allergies Active Allergy Reactions Criticality Noted Date [...] in the evening. Active ergocalciferol 1.25 MG (42804 UT) capsule Take 1 capsule by mouth [...] Encounters Date Type Department Care Team Description 07/22/2025 Orders Only [facility] [address] [phone] Tima Salas MD 07/10/2025 Orders Only [facility] [address] [address] Tima Salas MD 06/17/2025 Orders Only [facility] [address] [phone] Tima Salas MD 06/09/2025 11:00 AM EDT Office Visit [facility] [address] [place] [address] [place] [phone] Pipe Lowe DO End stage renal disease (HCC) (Primary Dx); 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) 06/03/2025 Orders Only [facility] [address] [phone] Tima Salas MD 05/20/2025 Orders Only [facility] [address] [address] Tima Salas MD 05/18/2025 Telephone [facility] [address] [place] [address] [place] [phone] Love Larry 05/06/2025 Orders Only [facility] [address] [phone] Tima Salas MD 05/01/2025 Telephone [facility] [address] [place] [phone] Viv Aguilera from Last 3 Months Family History Medical [...] Comments Breast Cancer Screening 1965 Pneumococcal Vaccine: 50+ Ye ars (2 of 2 - PCV) 03/12/2013 03/12/2012 Colorectal Cancer Screening: Annual FOBT 2014 Colorectal Cancer Screening: Colonoscopy 2014 Colorectal Cancer Screening: Sigmoidoscopy 2014 Influenza Vaccine (#1) 2025 Pneumococcal Vaccine: Peds ( 0 to 5 Years) and At-Risk Patients (6 to 49 Years) Discontinued 03/12/2012 Hepatitis B Vaccine Aged Out No longe r eligible based on patient's age to complete this topic Procedures Procedure Name Priority Date/Time Associated Diagnosis Comments THYROIDS Routine 07/22/2025 CHEMISTRY Routine 07/22/2025 IMMUNO CHEMISTRY Routine 07/22/2025 HEMATOLOGY Routine 07/22/2025 CHEMISTRY Routine 07/22/2025 HD KINETICS Routine 07/10/2025 POST CHEMISTRY Routine 07/10/2025 CHEMISTRY Routine 07/10/2025 HD KINETICS Routine 06/17/2025 THYROIDS Routine 06/17/2025 CHEMISTRY Routine 06/17/2025 IMMUNO CHEMISTRY Routine 06/17/2025 CHEMISTRY Routine 06/17/2025 HD KINETICS Routine 06/03/2025 CHEMISTRY Routine 06/03/2025 POST CHEMISTRY Routine 06/03/2025 HEMATOLOGY Routine 06/03/2025 IMMUNO CHEMISTRY Routine 05/20/2025 THYROIDS Routine 05/20/2025 CHEMISTRY Routine 05/20/2025 CHEMISTRY Routine 05/20/2025 HEMATOLOGY Routine 05/20/2025 HD KINETICS Routine 05/06/2025 CHEMISTRY Routine 05/06/2025 POST CHEMISTRY Routine 05/06/2025 from Last 3 Months Results * THYROIDS (07/22/2025) Only the most recent of3 resultswithin the time period is included. [facility] TSH 1.994 0.300 - 3.000 mIU/L [facility] Comment: The reference range of 0.300-3.000 mIU/L is recommended by the [employer] (AACE). An ESRD population contains about 20% of individuals with TSH of up to 20 mIU/L and normal free T4 consistent with non-thyroidal illness. ESRD patients with true hypothyroidism develop persistent values above 20 mIU/L. 07/22/2025 07/23/2025 8:3 7 AM EST Narrative [facility] - 07/23/2025 Unless otherwise specified, test(s) performed at: [facility], [address] [place] [id number] PATTERN MARKER: Latrell Pollack M.D. For any questions, please call customer service at FREQUENCY:MONTHLY Resulting Agency Comment Specimen source: Serum Tima Salas MD LAB BLOOD ORDERABLES Final Re sult [facility] See order comments or contact performing lab Unknown, [place] * IMMUNO CHEMISTRY (07/22/2025) Only the most recent of3 resultswithin the time period is included. Pathologist [facility] Hep B Surface Ag Negative Negative [facility] 07/22/2025 07/23/2025 8:3 7 AM EST Narrative Resulting Agency Comment Specimen source: Serum Tima Salas MD LAB BLOOD ORDERABLES Final Re sult Performing Organization Address City/[facility] Co de Phone Number [facility] See order comments or contact performing lab Unknown, [place] * (ABNORMAL) HEMATOLOGY (07/22/2025) Only the most recent of3 resultswithin the time period is included. WBC 4.26(L) 4.80 - 10.80 1000/mcL [facility] RBC 3.50(L) 4.20 - 5.40 mill/mcL [facility] Hematocrit 31.7(L) 37.0 - 47.0 % [facility] MCV 90 80 - 100 fl [facility] MCH 26.8(L) 27.0 - 31.0 pg [facility] MCHC 29.6(L) 30.0 - 36.0 g/dL [facility] RDW 15.7(H) 11.5 - 14.5 % [facility] Hemoglobin 9.4(L) 12.0 - 16.0 g/dL [facility] Hemoglobin x 3 28.2(L) 36.0 - 48.0 % [facility] Platelets 177 130 - 400 1000/mcL [facility] 07/22/2025 07/23/2025 8:2 6 AM EST Narrative [facility] - 07/23/2025 Unless otherwise specified, test(s) performed at: [facility], [address] [place] [id number] PATTERN MARKER: Latrell Pollack M.D. For any questions, please call customer service at FREQUENCY:MONTHLY Resulting Agency Comment Specimen source: Blood Tima Salas MD LAB BLOOD ORDERABLES Final Re sult Performing Organization Address [facility] Co de Phone Number [facility] See order comments or contact performing lab Unknown, [place] * (ABNORMAL) [facility] Chemistry (07/22/2025) Only the most recent of9 resultswithin the time period is included. PTH 2,218(H) 16 - 80 pg/mL [facility] Comment: Verified by repeat analysis. 07/22/2025 07/23/2025 8:2 1 AM EST Narrative [facility] - 07/23/2025 Unless otherwise specified, test(s) performed at: [facility], [address] [place] [id number] PATTERN MARKER: Latrell Pollack M.D. For any questions, please call customer service at FREQUENCY:MONTHLY Resulting Agency Comment Specimen source: Plasma Tima Salas MD LAB BLOOD ORDERABLES Final Re sult Performing Organization Address [facility]/ZIP Co de Phone Number [facility] See order comments or contact performing lab Unknown, [place] * (ABNORMAL) HD KINETICS (07/10/2025) Only the most recent of4 resultswithin the time period is included. % Urea Reduction 55(L) 65 - 80 % [facility] 07/10/2025 07/11/2025 12: 10 PM EST Narrative Resulting Agency Comment Specimen source: Plasma Tima Salas MD LAB BLOOD ORDERABLES Final Re sult Performing Organization Address City/[facility]/ZIP Co de Phone Number [facility] See order comments or contact performing lab Unknown, [place] * (ABNORMAL) POST CHEMISTRY (07/10/2025) Only the most recent of3 resultswithin the time period is included. BUN Post Dialysis 47(H) 6 - 19 mg/dL [facility] 07/10/2025 07/11/2025 12: 10 PM EST Narrative [facility] - 07/11/2025 Unless otherwise specified, test(s) performed at: [facility], [address] [place], [place] [id number] PATTERN MARKER: aLtrell Pollack M.D. For any questions, please call customer service at FREQUENCY:OTHER Resulting Agency Comment Specimen source: Plasma Tima Salas MD LAB BLOOD ORDERABLES Final Re sult Performing Organization Address [facility] Co de Phone Number [facility] See order comments or contact performing lab Unknown, [place] from Last 3 Months Insurance [facility] [employer] Dual SNP ([id number]) Care Teams Bottle Blower Relationship Specialty Start Date End Date Mary Garcia FNP [address] [place] [address] PCP - General 06/19/22
[2025-07-31 11:20] LABS: Resp Syncy Virus RNA Qual PCR NEGATIVE (Negative); SARS COV2 PCR INHOUSE NEGATIVE (Negative)
[2025-07-31 11:49] VITALS: BP 195/90; PULSE 88; RESP 18; TEMP 36.8; O2SAT 98
== END 2025-07-31 11:50 | disposition home or self-care (01) ==
PROVIDERS: Physician Assistant Medical; Emergency Provider Emergency Medicine; PCP Internal Medicine
DX: J30.9 Allergic rhinitis, unspecified (principal); R09.82 Postnasal drip; J02.9 Acute pharyngitis, unspecified; R06.02 Shortness of breath; R05.9 Cough, unspecified; Z87.891 Personal history of nicotine dependence; Z03.818 Encounter for observation for suspected exposure to other biological agents ruled out
CPT/HCPCS: 71046; 87637; 87651; 99282; 99283

== ENCOUNTER → 2025-07-31 10:05 | Outpatient (BNV) | payer OTHER, SELFPAY | PROVIDERS: Emergency Provider Emergency Medicine; PCP Internal Medicine; Visit Provider Radiology Diagnostic Radiology | DX: R05.9 Cough, unspecified (principal); Z95.9 Presence of cardiac and vascular implant and graft, unspecified | CPT/HCPCS: 71046 ==

== ENCOUNTER → 2025-08-03 23:59 | Outpatient (BNV) | payer OTHER, SELFPAY | PROVIDERS: PCP Internal Medicine; Visit Provider Internal Medicine Nephrology | DX: N18.6 End stage renal disease (principal) | CPT/HCPCS: 90961 ==